=== PATIENT | male | born 1990 | race Caucasian/White ===

== ENCOUNTER 2016-09-29 14:01 | Emergency (ER) | payer BC ==
[~2016-09-29] VITALS: Ht 172.7 cm; Wt 101.3 kg
[~2016-09-29 14:01] MED LIST: LAMO200T38 PO; LEVE500T13 PO; XRL20 PO
[2016-09-29 14:04] VITALS: TEMP 37; Ht 172.7 cm; Wt 101.3 kg
--- NOTE | 2016-09-29 14:23 | EMERGENCY ROOM VISIT NOTE ---
History Report prepared by Ileana: Melissa Mirza Under the Supervision of: Dr. Josué Zuluaga M.D. First contact with patient: 14:09 Chief Complaint: LEG PAIN,LEG INJURY Stated Complaint: PAIN & SWELLING L LEG, COUGHING UP BLOOD History of Present Illness The patient is a 26 year old male who presents to the Emergency Room with complaints of persistent left thigh pain that began this morning around 1000. He currently rates his discomfort as a 3/10 in severity. The patient states that he was at work when he developed the pain. He notes that bending his leg back completely worsen his discomfort. The patient states that his pain come out of nowhere today. He notes that he has a history of previous PEs. The patient states that he is currently on Xarelto, and denies any blood clots since being placed on Xarelto. He states that recently he has been experiencing hemoptysis, but attributes that to his recent sinus infection. The patient denies any shortness of breath. He notes an increased cough with lying flat. The patient notes that he took Tylenol prior to arrival. Source of History: patient Onset: 1000 this morning Position: other (left thigh) Symptom Intensity: 3/10 Timing: other (persistent) Modifying Factors (Worsening): other (bending his left leg back completely) Associated Symptoms: + cough, No SOB Note: Associated Symptoms: hemoptysis Review of Systems All systems have been listed, reviewed, and are negative other than those previously mentioned. Please see Additional Medical History Sheet. Past Medical & Surgical Medical Problems: (1) Bronchitis (2) Depression (3) Epilepsy (4) Pneumonia (5) Pulmonary embolism (6) Seizure Surgical Problems: (1) H/O wisdom tooth extraction Family History Heart disease Hypertension Kidney stones Seizures Social History Smoking Status: Former Smoker Smokeless Tobacco Use: No Alcohol Use: occasionally Drug Use: marijuana Marital Status: single Housing Status: lives with family Occupation Status: employed Current/Historical Medications Scheduled Lamotrigine (Lamictal), 200 MG PO BID Lamotrigine (Lamotrigine), 75 MG PO BID Levetiracetam (Keppra), 500 MG PO BID Rivaroxaban (Xarelto), 20 MG PO QPM Scheduled PRN Acetaminophen (Tylenol), 1,000 MG PO Q6 PRN for Pain Allergies Coded Allergies: Tramadol (Verified Allergy, Severe, SHORTNESS OF BREATH, 09/29/16) lowers seizure threshold Penicillins (Verified Allergy, Unknown, unknown, 09/29/16) pt Physical Exam Vital Signs Date Time Temp Pulse Resp B/P Pulse Ox O2 Delivery O2 Flow Rate FiO2 09/29/16 16:57 77 18 118/76 99 09/29/16 15:29 57 09/29/16 15:12 Room Air 09/29/16 15:12 64 18 111/51 94 Room Air 09/29/16 14:04 37.0 69 18 123/65 95 Room Air Physical Exam GENERAL: Patient awake, alert, oriented x 3. Patient follows commands. Patient does not appear toxic. Patient is adequately hydrated and well- nourished. SKIN: No erythema, pallor, cyanosis or rash HEENT: Normal head, no tenderness over maxillary or frontal sinuses. pupils equal, reactive to light and accommodation. Neck: Without adenopathy, no neck vein distention. LUNGS: Clear to auscultation. No wheezes, no rales, no rhonchi. HEART: No murmurs. No gallops. No rubs ABDOMEN: No masses, no rebound, no hepatomegaly or splenomegaly. EXTREMITIES: Tender along lateral aspect of distal left upper leg. Full range of motion of knee and hip without increasing pain. Good circulatory, sensation , and motor functions. No signs of trauma. No pedal or pretibial edema. No calf tenderness. NEUROLOGIC: Cranial nerves II-XII within normal limits. No gross motor sensory function deficits. Medical Decision & Procedures ER Provider Diagnostic Interpretation: Radiology results as stated below per my review and radiologist interpretation: ULTRASOUND LEFT VENOUS DOPP LOWER EXT UNILAT CLINICAL HISTORY: Left leg pain COMPARISON STUDY: No previous studies for comparison. FINDINGS: Real-time and color flow Doppler imaging were performed. Flow was seen within the femoral, popliteal and calf veins with no intraluminal thrombus demonstrated. The saphenous vein is patent. IMPRESSION: No evidence of left lower extremity DVT. Electronically signed by: Haider Rob M.D. 09/29/2016 2:55 PM Dictated Date/Time: 09/29/2016 2:53 PM CHEST 2 VIEWS ROUTINE CLINICAL HISTORY: hemoptysis COMPARISON STUDY: 06/29/2016 FINDINGS: The heart is normal in size. There is no lobar consolidation. There are equivocal minimal nodular left basilar airspace opacities. There is no failure. There are no significant pleural effusions.[ IMPRESSION: Slight prominence of the interstitium with equivocal minimal nodular left basilar airspace opacities. No evidence of lobar consolidation Electronically signed by: Haider Rob M.D. 09/29/2016 3:51 PM Dictated Date/Time: 09/29/2016 3:49 PM Laboratory Results 09/29/16 14:30 09/29/16 14:30 Test 09/29/16 14:30 Red Blood Count 4.72 M/uL (4.7-6.1) Mean Corpuscular Volume 81.8 fL (80-100) Mean Corpuscular Hemoglobin 30.5 pg (25-34) Mean Corpuscular Hemoglobin Concent 37.3 g/dl (32-36) RDW Standard Deviation 35.8 fL (36.4-46.3) RDW Coefficient of Variation 11.9 % (11.5-14.5) Mean Platelet Volume 10.5 fL (7.4-10.4) Platelet Estimate DECREASED Prothrombin Time 12.1 SECONDS (9.0-12.0) Prothromb Time International Ratio 1.1 (0.9-1.1) Activated Partial Thromboplast Time 54.1 SECONDS (21.0-31.0) Partial Thromboplastin Ratio 2.1 D-Dimer 350 ug/L FEU (0-500) Anion Gap 10.0 mmol/L (3-11) Est Creatinine Clear Calc Drug Dose 93.0 ml/min Estimated GFR () 80.4 Estimated GFR (Non- 69.3 BUN/Creatinine Ratio 11.2 (10-20) Calcium Level 9.1 mg/dl (8.5-10.1) Troponin I < 0.015 ng/ml (0-0.045) Laboratory results as stated above per my review. ECG Indication: other (cough, hemoptysis) Rate (beats per minute): 59 Rhythm: sinus bradycardia Findings: no acute ischemic change, no ectopy, other (sinus arrhythmia) ED Course 1410: Past medical records reviewed. The patient was evaluated in room C9. A complete history and physical examination was performed. 1628: I discussed the patients case with Dr. Rob, Radiology. He feels that the nodules on x-ray are not likely to be neoplastic, but more likely related to prior PE/pulmonary infarction. 1632: I reevaluated the patient and he is resting comfortably. I discussed the exam findings with him and I discussed the treatment plan. He verbalized complete understanding and agreement. He is ready to go home. Medical Decision Nurses notes reviewed. Medical history sheet reviewed. Differential diagnosis includes but is not limited to: DVT, PE, musculoskeletal pain, sinusitis. The patient is here with some pain in his left leg and also some hemoptysis. He believes the hemoptysis is secondary to a sinus infection. The patient has had a past PE is currently on Xarelto. Blood work, EKG and imaging were evaluated. Please see above. Chest x-ray today reveals a questionable nodule in the left lower lobe where his PE was. I discussed this with Dr. Lai who does not feel this is a neoplastic lesion. The pain in his left leg appears to be musculoskeletal. Ultrasound was negative for DVT. I believe the patient can safely be monitored at home and follow-up by his family physician. I am placing him on on new medications. He will continue his Xarelto. Consults Time Called: 1625 Consulting Physician: Dr. Rob, Radiology Returned Call: [phone] I discussed the patients case with Dr. Rob, Radiology. He feels that the nodules on x-ray are not likely to be neoplastic, but more likely related to prior PE/pulmonary infarction. Impression Primary Impression: Hemoptysis Additional Impressions: History of pulmonary embolism Left leg pain Scribe Attestation The scribe's documentation has been prepared under my direction and personally reviewed by me in its entirety. I confirm that the note above accurately reflects all work, treatment, procedures, and medical decision making performed by me. Departure Information Dispostion Home / Self-Care Referrals Mukesh Boyd M.D. (PCP) Forms HOME CARE DOCUMENTATION FORM, IMPORTANT VISIT INFORMATION Patient Instructions My [facility] [place] Additional Instructions Continue all of your current medications including Xarelto. Follow-up with your family physician within the next 10-14 days. Return here sooner if you become short of breath or develop any chest pain. Problem Qualifiers
[2016-09-29] MEDS ORDERED: LMC25 PO (14:30)
--- NOTE | 2016-09-29 14:57 | DIAGNOSTIC IMAGING REPORT ---
ULTRASOUND LEFT VENOUS DOPP LOWER EXT UNILAT CLINICAL HISTORY: Left leg pain COMPARISON STUDY: No previous studies for comparison. FINDINGS: Real-time and color flow Doppler imaging were performed. Flow was seen within the femoral, popliteal and calf veins with no intraluminal thrombus demonstrated. The saphenous vein is patent. IMPRESSION: No evidence of left lower extremity DVT. Electronically signed by: Haider Rob M.D. 09/29/2016 2:55 PM Dictated Date/Time: 09/29/2016 2:53 PM
[2016-09-29 15:21] LABS: BLOOD UREA NITROGEN 16 mg/dl (7-18); BUN/CREATININE RATIO 11.2 (10-20); CALCIUM 9.1 mg/dl (8.5-10.1); CARBON DIOXIDE 25 mmol/L (21-32); CHLORIDE 104 mmol/L (98-107); GLUCOSE 84 mg/dl (70-99); INR 1.1 (0.9-1.1); PARTIAL THROMBOPLASTIN RATIO 2.1; POTASSIUM 3.7 mmol/L (3.5-5.1); PROTHROMBIN TIME (PATIENT) 12.1 SECONDS (9.0-12.0); SODIUM 139 mmol/L (136-145)
[2016-09-29 15:31] LABS: HEMATOCRIT 38.6 % (42-52); MEAN CELL VOLUME 81.8 fL (80-100); MEAN CORPUSCULAR HEMOGLOBIN 30.5 pg (25-34); MEAN CORPUSCULAR HGB CONC 37.3 g/dl (32-36); MEAN PLATELET VOLUME 10.5 fL (7.4-10.4); PLATELET COUNT 90 K/uL (130-400); PLT ESTIMATE DECREASED; RED BLOOD COUNT 4.72 M/uL (4.7-6.1); WHITE BLOOD COUNT 6.27 K/uL (4.8-10.8)
--- NOTE | 2016-09-29 15:52 | DIAGNOSTIC IMAGING REPORT ---
CHEST 2 VIEWS ROUTINE CLINICAL HISTORY: hemoptysis COMPARISON STUDY: 06/29/2016 FINDINGS: The heart is normal in size. There is no lobar consolidation. There are equivocal minimal nodular left basilar airspace opacities. There is no failure. There are no significant pleural effusions.[ IMPRESSION: Slight prominence of the interstitium with equivocal minimal nodular left basilar airspace opacities. No evidence of lobar consolidation Electronically signed by: Haider Rob M.D. 09/29/2016 3:51 PM Dictated Date/Time: 09/29/2016 3:49 PM
[2016-09-29 16:57] VITALS: BP 118/76; PULSE 77; O2SAT 99
[2016-10-14] MEDS ORDERED: PRT40 PO (13:01)
[2016-10-14] MEDS ORDERED: LPT40 PO (13:01)
[2016-10-14] MEDS ORDERED: WARF7.5T PO (13:01)
[2016-10-14] MEDS ORDERED: ASPEC81 PO (13:01)
[2017-02-08] MEDS ORDERED: ACET-1256 PO (10:56)
[2017-02-08] MEDS ORDERED: ASPI81TA28 PO (14:11)
== END 2016-09-29 16:58 | disposition home or self-care (01) ==
LOC: C.EDB 14:03 → C.EDC 16:52
DX: R04.2 Hemoptysis (principal); Z86.711 Personal history of pulmonary embolism; M79.605 Pain in left leg; F32.9 Major depressive disorder, single episode, unspecified; G40.909 Epilepsy, unspecified, not intractable, without status epilepticus; Z87.891 Personal history of nicotine dependence

== ENCOUNTER 2016-10-03 03:31 | Inpatient (IN) | payer BC ==
[~2016-10-03] VITALS: Ht 170.2 cm; Wt 96.3 kg
[~2016-10-03 03:31] MED LIST changes: +LMC25 PO
[2016-10-03] MEDS ORDERED: SODIUM CHLORIDE 0.9% 1000ML 1,000 ML IV STA (03:48)
[2016-10-03] MEDS ORDERED: DiphenhydrAMINE HCL 50 MG/ML VIAL IV STA (03:48)
[2016-10-03] MEDS ORDERED: METOCLOPRAMIDE HCL INJ 5 MG/ML 2 ML VIAL IV STA (03:48)
[2016-10-03] MEDS ORDERED: OPTIRAY 320 IV PRN (04:00)
[2016-10-03 04:10] LABS: HEMATOCRIT 37.7 % (42-52); MEAN CELL VOLUME 80.2 fL (80-100); MEAN CORPUSCULAR HGB CONC 37.4 g/dl (32-36); WHITE BLOOD COUNT 7.41 K/uL (4.8-10.8)
[2016-10-03 04:11] LABS: BASO % 0.4 %; BASO ABS # 0.03 K/uL (0-0.2); COMPLETE YES; EOS % 4.2 %; IG% 0.3 %; LYMPH % 17.5 %; MEAN PLATELET VOLUME 10.4 fL (7.4-10.4); NEUT % 68.6 %; PLATELET COUNT 89 K/uL (130-400)
[2016-10-03 04:29] LABS: ALT/SGPT 44 U/L (12-78); AST/SGOT 31 U/L (15-37); BLOOD UREA NITROGEN 23 mg/dl (7-18); BUN/CREATININE RATIO 17.4 (10-20); CALCIUM 8.9 mg/dl (8.5-10.1); CARBON DIOXIDE 26 mmol/L (21-32); CHLORIDE 105 mmol/L (98-107); GLUCOSE 104 mg/dl (70-99); POTASSIUM 3.7 mmol/L (3.5-5.1); SODIUM 141 mmol/L (136-145)
[2016-10-03 04:34] LABS: ALKALINE PHOSPHATASE 95 U/L (45-117); GASTRIC OCCULT BLOOD POS (NEG); GASTRIC OCCULT BLOOD PH 3
[2016-10-03 04:42] LABS: INR 1.2 (0.9-1.1); PARTIAL THROMBOPLASTIN RATIO 2.4; PROTHROMBIN TIME (PATIENT) 13.4 SECONDS (9.0-12.0)
[2016-10-03] MEDS ORDERED: PANTOprazole INJ 80 MG in DEXTROSE 5% 100ML 100 ML IV SCH (04:45)
--- NOTE | 2016-10-03 05:54 | EMERGENCY ROOM VISIT NOTE ---
History First contact with patient: 03:38 Chief Complaint: VERTIGO Stated Complaint: VERTIGO,NAUSEA,VOMITING,COUGH W/ BLOOD History of Present Illness The patient is a 26 year old male who presents to the Emergency Room with complaints of increasing hemoptysis for the past 2 weeks with occasional chest pain and palpitations. Patient has been vomiting and thinks he might at some blood in it but he did eat spaghetti for dinner. Patient has known PEs. He is on Xarelto. He does not believe he has missed any does. Patient states tonight he developed vertigo and vomiting. Patient states he woke up just fine but got sick today at work. He works at [employer]. He's had vertigo before. Symptoms feel similar. He had a cold last week. Patient denies IV drug abuse, night sweats, TB risk factors, HIV risk factors, fever, chills, black stool, abdominal pain, leg pain or swelling, numbness, tingling, localized weakness, diaphoresis. No Recent travel. Patient is unsure why he has PEs. He does not smoke. Review of Systems See HPI for pertinent positives & negatives. A total of 10 systems reviewed and were otherwise negative. Past Medical/Surgical History Medical Problems: (1) Bronchitis (2) Depression (3) Epilepsy (4) Pneumonia (5) Pulmonary embolism (6) Seizure Surgical Problems: (1) H/O wisdom tooth extraction Family History Heart disease Hypertension Kidney stones Seizures Social History Smoking Status: Never Smoker Alcohol Use: occasionally Drug Use: marijuana Marital Status: single Housing Status: lives with family Occupation Status: employed Current/Historical Medications Scheduled Lamotrigine (Lamictal), 200 MG PO BID Lamotrigine (Lamotrigine), 75 MG PO BID Levetiracetam (Keppra), 500 MG PO BID Rivaroxaban (Xarelto), 20 MG PO QPM Scheduled PRN Acetaminophen (Tylenol), 1,000 MG PO Q6 PRN for Pain Allergies Coded Allergies: Tramadol (Verified Allergy, Severe, SHORTNESS OF BREATH, 10/03/16) lowers seizure threshold Penicillins (Verified Allergy, Unknown, unknown, 10/03/16) pt Physical Exam Vital Signs Date Time Temp Pulse Resp B/P Pulse Ox O2 Delivery O2 Flow Rate FiO2 10/03/16 05:03 50 23 117/61 95 Room Air 10/03/16 04:20 36.3 10/03/16 04:07 56 10/03/16 04:03 Room Air 10/03/16 03:37 58 20 122/72 95 Room Air Physical Exam VITALS: Vitals are noted on the nurse's note and reviewed by myself. Vital signs stable. GENERAL:pleasant male, in no acute distress, nondiaphoretic, well-developed well -nourished. SKIN: The skin was without rashes, erythema, edema, or bruising. There is no tenting of the skin. Capillary reflex less than 2 seconds. HEAD: Normocephalic atraumatic. EARS: External auditory canals clear, tympanic membranes pearly dickens without erythema or effusion bilaterally. EYES: Pupils equal round and reactive to light and accommodation. Conjunctivae without injection, sclerae without icterus. Extraocular movements intact. NOSE: Patent, turbinates without inflammation or discharge. No sinus tenderness. MOUTH: Mucous membranes moist. Pharynx without erythema or exudate. Uvula midline. Airway patent. Tongue does not deviate. NECK: Supple without nuchal rigidity. No lymphadenopathy. No thyromegaly. Cervical spine is nontender. No JVD. HEART: Regular rate and rhythm without murmurs gallops or rubs. LUNGS: Clear to auscultation bilaterally without wheezes, rales or rhonchi. No dullness to percussion. No retractions or accessory muscle use. ABDOMEN: Positive bowel sounds x 4. Normal tympanic percussion. Soft, nontender, without masses or organomegaly. Hewitt sign negative. No guarding or rebound tenderness. MUSCULOSKELETAL: No muscle atrophy, erythema, or edema noted. NEURO: Patient was alert and oriented to person place and time. Normal sensation to light and sharp touch. No focal neurological deficits. Medical Decision & Procedures Laboratory Results 10/03/16 04:00 Red Blood Count 4.70, Mean Corpuscular Volume 80.2, Mean Corpuscular Hemoglobin 30.0, Mean Corpuscular Hemoglobin Concent 37.4, Mean Platelet Volume 10.4, Neutrophils (%) (Auto) 68.6, Lymphocytes (%) (Auto) 17.5, Monocytes (%) (Auto) 9.0, Eosinophils (%) (Auto) 4.2, Basophils (%) (Auto) 0.4, Neutrophils # (Auto) 5.08, Lymphocytes # (Auto) 1.30, Monocytes # (Auto) 0.67, Eosinophils # (Auto) 0.31, Basophils # (Auto) 0.03 10/03/16 04:00 Test 10/03/16 04:00 White Blood Count 7.41 K/uL (4.8-10.8) Red Blood Count 4.70 M/uL (4.7-6.1) Hemoglobin 14.1 g/dL (14.0-18.0) Hematocrit 37.7 % (42-52) Mean Corpuscular Volume 80.2 fL (80-100) Mean Corpuscular Hemoglobin 30.0 pg (25-34) Mean Corpuscular Hemoglobin Concent 37.4 g/dl (32-36) Platelet Count 89 K/uL (130-400) Mean Platelet Volume 10.4 fL (7.4-10.4) Neutrophils (%) (Auto) 68.6 % Lymphocytes (%) (Auto) 17.5 % Monocytes (%) (Auto) 9.0 % Eosinophils (%) (Auto) 4.2 % Basophils (%) (Auto) 0.4 % Neutrophils # (Auto) 5.08 K/uL (1.4-6.5) Lymphocytes # (Auto) 1.30 K/uL (1.2-3.4) Monocytes # (Auto) 0.67 K/uL (0.11-0.59) Eosinophils # (Auto) 0.31 K/uL (0-0.5) Basophils # (Auto) 0.03 K/uL (0-0.2) RDW Standard Deviation 34.4 fL (36.4-46.3) RDW Coefficient of Variation 11.7 % (11.5-14.5) Immature Granulocyte % (Auto) 0.3 % Immature Granulocyte # (Auto) 0.02 K/uL (0.00-0.02) Prothrombin Time 13.4 SECONDS (9.0-12.0) Prothromb Time International Ratio 1.2 (0.9-1.1) Activated Partial Thromboplast Time 63.4 SECONDS (21.0-31.0) Partial Thromboplastin Ratio 2.4 Gastric Fluid pH 3 Gastric Fluid Occult Blood POS (NEG) Anion Gap 10.0 mmol/L (3-11) Estimated GFR () 87.9 Estimated GFR (Non- 75.8 BUN/Creatinine Ratio 17.4 (10-20) Calcium Level 8.9 mg/dl (8.5-10.1) Total Bilirubin 0.7 mg/dl (0.2-1) Direct Bilirubin 0.2 mg/dl (0-0.2) Aspartate Amino Transf (AST/SGOT) 31 U/L (15-37) Alanine Aminotransferase (ALT/SGPT) 44 U/L (12-78) Alkaline Phosphatase 95 U/L (45-117) Troponin I 0.021 ng/ml (0-0.045) Total Protein 7.6 gm/dl (6.4-8.2) Albumin 3.9 gm/dl (3.4-5.0) Medications Administered Medications (Trade) Dose Ordered Sig/Brianda Route Start Time Stop Time Status Last Admin Dose Admin Sodium Chloride (Nss 1000ml) 1,000 ml @ 999 mls/hr Q1H1M STAT IV 10/03/16 03:48 10/03/16 04:48 DC 10/03/16 04:01 999 MLS/HR Metoclopramide HCl (Reglan Inj) 10 mg NOW STAT IV 10/03/16 03:48 10/03/16 03:51 DC 10/03/16 04:01 10 MG Diphenhydramine HCl 25 mg 25 mg NOW STAT IV 10/03/16 03:48 10/03/16 03:51 DC 10/03/16 04:01 25 MG Pantoprazole Sodium/Dextrose (Protonix Inj/D5 100ml) 120 ml @ 400 mls/hr NOW IV 10/03/16 04:45 11/02/16 04:44 10/03/16 05:00 400 MLS/HR ED Course Prior records/ancillary studies reviewed and summarized above. Nursing notes reviewed. Additional history obtained from family. The patient's history was concerning for hemoptysis, palpitations, vertigo. Differential diagnosis: Etiologies such as metabolic, autoimmune, PE, infection, hypo/hyperglycemia, electrolyte abnormalities, cardiac sources, intracerebral event, toxicologic, neurologic, as well as others were entertained. Physical examination: As above. ER treatment provided: IV Lock Reglan, Benadryl, protonix On reassessment the patient felt better. Diagnostics interpretation by me: ECG: Normal sinus, normal intervals, no acute ST-T wave changes, rate of 52. Impression sinus bradycardia interpreted by myself The labs revealed + Gastroccult, no anemia Imaging studies: CTA CHEST: Compared to 05/24/16. No evidence of large central PE. Peripheral vessels not well visualized, suspect small PE in the left lower lobe. Extensive patchy bilateral groundglass infiltrates, possible pulmonary hemorrhage, edema, or inflammatory/infectious process. Prominent mediastinal and hilar lymph nodes. No aortic aneurysm or visualized dissection. Radiologist: Julia Trevino M.D. Study ready at 04:54 and initial results Consultation: A consultation was placed with the hospitalist, Dr Prakash. The case was discussed and diagnostics were reviewed. The patient was evaluated in the ER for further treatment. Exam and history seem consistent with new PE, hemoptysis and positive gastric occult with vomiting concerning for hematemesis. Patient was neurovascularly and neurologically intact. He was well-appearing. He is afebrile and nontoxic. Patient's been having increasing hemoptysis so further imaging was ordered. new findings were noted. Patient was given Protonix for positive Gastroccult with hematemesis. By the evaluation outlined above emergent etiologies such as electrolyte abnormalities, cardiac sources, intracerebral event, toxologic, neurologic, abnormalities blood glucose, metabolic, as well as others were deemed relatively unlikely. The pt informed about the findings as listed above. All questions were answered and pleased with the treatment. Case reviewed with my attending Medical Decision as above Impression Primary Impression: Pulmonary embolism Additional Impressions: Hemoptysis Hematemesis Vertigo Departure Information Dispostion Being Evaluated By Hospitalist Condition FAIR Referrals Mukesh Boyd M.D. (PCP) Patient Instructions My [facility] Problem Qualifiers Primary Impression: Pulmonary embolism Pulmonary embolism type: other Chronicity: acute Acute cor pulmonale presence: without acute cor pulmonale Qualified Codes: I26.99 - Other pulmonary embolism without acute cor pulmonale
[2016-10-03 06:08] LABS: MAGNESIUM 1.9 mg/dl (1.8-2.4); THYROID STIMULATING HORMONE 2.61 uIu/ml (0.300-4.500)
[2016-10-03] MEDS ORDERED: LEVAQUIN 750MG / 150ML D5W IV SCH (06:30)
[2016-10-03] MEDS ORDERED: METHYLPREDNISOLONE IV 40 MG in SYRINGE 0 ML IV ONE (06:30)
[2016-10-03 06:34] LABS: URINE APPEARANCE CLEAR (CLEAR); URINE BILIRUBIN NEG (NEG); URINE COLOR YELLOW; URINE NITRITE NEG (NEG); URINE SPECIFIC GRAVITY > 1.045 (1.000-1.030); UROBILINOGEN NEG (NEG); ZZUR CULT IF INDIC CLEAN CATCH NO
[2016-10-03 06:46] LABS: MANUAL MICROSCOPIC REQUIRED? NO; REVIEW REQ? NO
[2016-10-03 06:48] LABS: BENZODIAZEPINE, URINE NEG (NEG); COCAINE,URINE NEG (NEG); PHENCYCLIDINE, URINE NEG (NEG)
--- NOTE | 2016-10-03 06:49 | DIAGNOSTIC IMAGING REPORT ---
ABDOMEN AND PELVIS CT WITHOUT CONTRAST CT DOSE: HISTORY: Pain abd pain TECHNIQUE: Multiaxial CT images of the abdomen and pelvis were performed without contrast. COMPARISON STUDY: None. FINDINGS: Bibasilar parenchymal infiltrative change. Liver spleen and pancreas are unremarkable. Gallbladder is negative for distention. Kidneys negative for hydronephrosis. Bowel pattern is considered nonobstructive. There is no significant abdominal pelvic or inguinal adenopathy. Bladder is midline. Inguinal regions are unremarkable. IMPRESSION: Bibasilar parenchymal infiltrates. Otherwise negative abdomen and pelvis Electronically signed by: Sean Melo M.D. 10/03/2016 6:48 AM Dictated Date/Time: 10/03/2016 6:46 AM
--- NOTE | 2016-10-03 06:51 | DIAGNOSTIC IMAGING REPORT ---
HEAD CT NONCONTRAST CT DOSE: 1476.01 mGy.cm HISTORY: Mental status change lara, vertigo TECHNIQUE: Multiaxial CT images of the head were performed without the use of intravenous contrast. Comparison: 01/17/2016 Findings: The paranasal sinuses and mastoid air cells are clear. The calvarium and skull base are intact. The ventricles and sulci are within normal limits. There is no mass, hematoma, midline shift, or acute infarct. Impression: No acute intracranial abnormality. Electronically signed by: Sean Melo M.D. 10/03/2016 6:50 AM Dictated Date/Time: 10/03/2016 6:48 AM
--- NOTE | 2016-10-03 06:55 | DIAGNOSTIC IMAGING REPORT ---
CHEST CTA for PULMONARY ARTERIES CT DOSE: 560.48 mGy.cm HISTORY: Chest pain dyspnea TECHNIQUE: Multiaxial CT images of the chest were performed following the intravenous administration of contrast to evaluate the pulmonary arteries. Maximal intensity projection images were also obtained. COMPARISON STUDY: None. FINDINGS: There is a normal caliber thoracic aorta with no evidence for dissection. There is no evidence for pulmonary embolus. No significant pleural effusion. Pulmonary vasculature enhances appropriately. Moderate mediastinal and hilar adenopathy. A parenchymal infiltrate scattered throughout both hemithoraces. Some atypical pulmonary edematous changes a potential diagnostic possibility. IMPRESSION: 1. Study is negative for significant pulmonary embolus. 2. Diffuse bilateral patchy parenchymal infiltrates versus atypical pulmonary edema. 3. Moderate mediastinal and hilar adenopathy Electronically signed by: Sean Melo M.D. 10/03/2016 6:53 AM Dictated Date/Time: 10/03/2016 6:50 AM
[2016-10-03 07:00] VITALS: O2SAT 95; BMI 35.1
[2016-10-03] MEDS ORDERED: LORAZEPAM 2 MG/ML 1 ML VIAL IV PRN (07:00)
[2016-10-03] MEDS ORDERED: PROMETHAZINE HCL INJ 12.5 MG in SODIUM CHLORIDE 0.9% 50ML 50 ML IV PRN (07:00)
[2016-10-03] MEDS ORDERED: ALBUT/IPRATROP 3MG/0.5MG NEB 3 ML VIAL INH PRN (07:00)
[2016-10-03] MEDS ORDERED: ALBUT/IPRATROP 3MG/0.5MG NEB 3 ML VIAL INH STA (07:09)
[2016-10-03 07:10] VITALS: Ht 170.2 cm; Wt 96.3 kg
--- NOTE | 2016-10-03 07:33 | HISTORY & PHYSICAL EXAMINATION ---
DATE OF ADMISSION: 10/03/2016 PRIMARY CARE PHYSICIAN: Dr. Boyd. CHIEF COMPLAINT: Vertigo, hemoptysis/hematemesis. HISTORY OF PRESENT ILLNESS: Medical hx significant for seizure disorder, past tobacco abuse, pulmonary embolism on Xarelto. Recent confinement last April 2016 for pulmonary embolism. Patient discharged on Xarelto. Last week, patient was seen at [facility] for URTI symptoms, sinus congestion, drainage, productive cough with yellow sputum attributed to viral symptoms. Supportive management recommended. Cough later noted to be white-yellowish later noted to be bloody. No fever, no chills, no aspiration. Patient also complained of left leg pain and pleuritic substernal pain sx. Px was seen at the Emergency Room a few days ago. LLE Ultrasound negative for DVT. Chest x-ray, slight prominence of interstitium. Platelets noted to be 90. Patient subsequently discharged home. Persistence of hemoptysis symptoms at home. Last night while patient playing video games he noted vertigo symptoms like the room tilted, transient achy headache symptoms. Patient also noted achy epigastric discomfort ffd by blood tinged emesis. No melena, no hematochezia. At the Emergency Room, Protonix given for possible GI bleed. MEDICAL HISTORY: As above. SURGERIES: Tooth extraction. HOME MEDICATIONS: Xarelto, Keppra, lamotrigine, Tylenol. ALLERGIES: TRAMADOL, PENICILLIN. FAMILY HISTORY: Hypertension, kidney stones, seizures. 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 REVIEW OF SYSTEMS: As per HPI, all other ROS negative. PHYSICAL EXAMINATION: VITAL SIGNS: Blood pressure was noted to be 122/72, pulse rate 58, RR 20, temperature 36.3, sats 95 on room air. GENERAL: Noted to be obese, slightly anxious, no respiratory distress. SKIN: Normal color. HEENT: [place] palpebral conjunctivae. Dry mucosa. NECK: Short neck. LUNGS: Decreased breath sounds. Occasional wheeze. HEART: Bradycardic. ABDOMEN: Some distention, nontender. EXTREMITIES: No edema. no tenderness NEUROLOGIC: No gross focality. LABS: Hemoglobin was noted to be 14.1, hematocrit 7.7, white cells 7.4, platelets 89. Sodium 140, potassium 3.7, chloride 105, CO2 26, BUN 23, creatinine 1.1, glucose 104. trop 0 CT initial read showed no evidence of large central PE, suspect small PE left lower lobe, patchy bilateral ground-glass infiltrates, possible pulmonary hemorrhage, edema, inflammatory vs infectious processes, prominent mediastinal lymph nodes. EKG rate 50, sinus bradycardia, no ischemia ASSESSMENT AND PLAN: 1. Hemoptysis multifactorial : pulmonary hemorrhage, ongoing Xarelto intake for PE ? pneumonia, no sepsis ? recurrent PE on initial CT scan read 2. transient vertigo, headache symptoms secondary to illness rule out structural intracranial pathology/ICH 3. blood-tinged emesis swallowed blood versus actual UGIB hemodynamically stable 4. thrombocytopenia 5. seizure disorder stable on meds. PLAN: PCU. Follow CT head, abdomen and pelvis. Appropriate to hold Xarelto for now Consider Tranexamic acid for bleeding. Will check with Hematology. Solu-Medrol 1 dose now for pulm hemorrhage, Levaquin for pneumonia, anti- tussives prn Pulmonary consult for pulmonary hemorrhage ff official CT chest read - new PE on the scan may warrant IVC filter placement ff HH, transfuse prbc if Hg less than 7 and/or symptomatic anemia GI consult if w/ active GI bleed sx DVT prophylaxis SCDs re bleed. Full code. MTDD
--- NOTE | 2016-10-03 07:53 | Progress Note ---
Internal Med Progress Note Date of Service: Oct 03, 2016. Provider Documentation: SUBJECTIVE: Patient is seen and examined at bedside. States having dizziness and right sided chest pain which is sharp. Denies any SOB. Has minimal hemoptysis this morning. OBJECTIVE: Vital Signs-as noted below Physical Exam: General Appearance:Moderately built and nourished Head: normocephalic, Atraumatic Eyes: normal inspection, EOMI, PERRLA Neck: supple, Trachea midline Respiratory/Chest: Normal breath sounds, CTA, No accessory muscle use Cardiovascular: S1, S2, No murmur Abdomen/GI:Soft, Non tender, Bowel sounds present Extremities/Musculoskelatal:normal inspection, no edema Neurologic/Psych:AAOX3, grossly no focal neurological deficits Skin: normal color, warm Lab data as noted below. ASSESSMENT & PLAN: Hemoptysis: On Xarelto at home for PE Patient states having hemoptysis since about 8 days Unknown cause of PE per patient S/P Tranexamic acid Hold Xarelto for now Monitor H&H, Transfuse PRN if Hb less than 7.0 CTA:Negative for PE Consulted Pulmonary: awaiting input ANCA screen:pending 1 dose of solumedrol given in ED for possible pulm.hemorrhage ? Atypical pneumonia: Currently afebrile, WBC:wnl Continue Levaquin for now Saturating well on RA Oxygen PRN Complains of right sided chest pain: Trend troponin + FOBT: Denies any melena or noticing blood in stools On Xarelto at home which is held May need colonoscopy as outpatient Will consider GI consult if tapan bleeding Dizziness: Likely secondary to dehydration: Admits to poor oral intake prior to admission States having intermittent dizziness which he relates to seizure disorder Continue IV fluids CT head: No acute pathology Monitor for now H/O PE: Unknown cause Xarelto held secondary to hemoptysis CTA: Negative for PE Thrombocytopenia: Likely secondary to acute illness Continue to monitor H/O seizure disorder: stable Continue home meds H/O drug abuse: Patient denies IV drugs Drug screen positive for Marijuana DVT Px: SCDs Code Status: Full code Disposition: Continue to monitor PROCEDURES: CTA: 1. Study is negative for significant pulmonary embolus. 2. Diffuse bilateral patchy parenchymal infiltrates versus atypical pulmonary edema. 3. Moderate mediastinal and hilar adenopathy CT head: No acute intracranial abnormality. CT ABD: Bibasilar parenchymal infiltrates. Otherwise negative abdomen and pelvis Vital Signs: Date Time Temp Pulse Resp B/P Pulse Ox O2 Delivery O2 Flow Rate FiO2 10/03/16 12:00 Room Air 10/03/16 11:30 Room Air 10/03/16 08:18 36.4 52 16 129/74 95 Room Air 10/03/16 08:00 Room Air 10/03/16 07:30 36.4 64 16 113/62 95 Room Air 10/03/16 07:00 95 Room Air 10/03/16 06:34 55 22 114/72 95 Room Air 10/03/16 05:03 50 23 117/61 95 Room Air 10/03/16 04:20 36.3 10/03/16 04:07 56 10/03/16 04:03 Room Air 10/03/16 03:37 58 20 122/72 95 Room Air Lab Results: Results Past 24 Hours Test 10/03/16 04:00 10/03/16 06:20 10/03/16 08:10 10/03/16 13:25 Range/Units White Blood Count 7.41 4.8-10.8 K/uL Red Blood Count 4.70 4.7-6.1 M/uL Hemoglobin 14.1 13.9 14.0-18.0 g/dL Hematocrit 37.7 37.8 42-52 % Mean Corpuscular Volume 80.2 80-100 fL Mean Corpuscular Hemoglobin 30.0 25-34 pg Mean Corpuscular Hemoglobin Concent 37.4 32-36 g/dl Platelet Count 89 130-400 K/uL Mean Platelet Volume 10.4 7.4-10.4 fL Neutrophils (%) (Auto) 68.6 % Lymphocytes (%) (Auto) 17.5 % Monocytes (%) (Auto) 9.0 % Eosinophils (%) (Auto) 4.2 % Basophils (%) (Auto) 0.4 % Neutrophils # (Auto) 5.08 1.4-6.5 K/uL Lymphocytes # (Auto) 1.30 1.2-3.4 K/uL Monocytes # (Auto) 0.67 0.11-0.59 K/uL Eosinophils # (Auto) 0.31 0-0.5 K/uL Basophils # (Auto) 0.03 0-0.2 K/uL RDW Standard Deviation 34.4 36.4-46.3 fL RDW Coefficient of Variation 11.7 11.5-14.5 % Immature Granulocyte % (Auto) 0.3 % Immature Granulocyte # (Auto) 0.02 0.00-0.02 K/uL Prothrombin Time 13.4 9.0-12.0 SECONDS Prothromb Time International Ratio 1.2 0.9-1.1 Activated Partial Thromboplast Time 63.4 21.0-31.0 SECONDS Partial Thromboplastin Ratio 2.4 Gastric Fluid pH 3 Gastric Fluid Occult Blood POS NEG Sodium Level 141 136-145 mmol/L Potassium Level 3.7 3.5-5.1 mmol/L Chloride Level 105 98-107 mmol/L Carbon Dioxide Level 26 21-32 mmol/L Anion Gap 10.0 3-11 mmol/L Blood Urea Nitrogen 23 7-18 mg/dl Creatinine 1.30 0.60-1.40 mg/dl Estimated GFR () 87.9 Estimated GFR (Non- 75.8 BUN/Creatinine Ratio 17.4 10-20 Random Glucose 104 70-99 mg/dl Calcium Level 8.9 8.5-10.1 mg/dl Magnesium Level 1.9 1.8-2.4 mg/dl Total Bilirubin 0.7 0.2-1 mg/dl Direct Bilirubin 0.2 0-0.2 mg/dl Aspartate Amino Transf (AST/SGOT) 31 15-37 U/L Alanine Aminotransferase (ALT/SGPT) 44 12-78 U/L Alkaline Phosphatase 95 45-117 U/L Troponin I 0.021 0-0.045 ng/ml Total Protein 7.6 6.4-8.2 gm/dl Albumin 3.9 3.4-5.0 gm/dl Lipase 222 73-393 U/L Thyroid Stimulating Hormone (TSH) 2.610 0.300-4.500 uIu/ml Urine Color YELLOW Urine Appearance CLEAR CLEAR Urine pH 7.0 4.5-7.5 Urine Specific [place] > 1.045 1.000-1.030 Urine Protein NEG NEG Urine Glucose (UA) NEG NEG Urine Ketones 1+ NEG Urine Occult Blood NEG NEG Urine Nitrite NEG NEG Urine Bilirubin NEG NEG Urine Urobilinogen NEG NEG Urine Leukocyte Esterase NEG NEG Urine Opiates Screen NEG NEG Urine Methadone, Qualitative NEG NEG Urine Barbiturates NEG NEG Urine Phencyclidine (PCP) Level NEG NEG Ur Amphetamine/Methamphetamine NEG NEG MDMA (Ecstasy) Screen NEG NEG Urine Benzodiazepines Screen NEG NEG Urine Cocaine Metabolite NEG NEG Urine Marijuana (THC) POS NEG Test 10/03/16 14:24 10/03/16 14:39 Range/Units
[2016-10-03] MEDS ORDERED: LACTATED RINGER'S 1000ML 1,000 ML IV ONE (08:00)
[2016-10-03] MEDS ORDERED: LORAZEPAM INJ 0.5 MG in SYRINGE 0.75 ML IV PRN (08:00)
[2016-10-03] MEDS ORDERED: LEVOFLOXACIN CONSULT ACTIVE PRN (08:15)
[2016-10-03 08:18] VITALS: BP 129/74; PULSE 52; TEMP 36.4; O2SAT 95
[2016-10-03 08:23] LABS: HEMATOCRIT 37.8 % (42-52)
[2016-10-03] MEDS: LEVETIRACETAM 500 MG TAB PO SCH ×2 (08:29→20:27)
[2016-10-03] MEDS ORDERED: TRANEXAMIC ACID INJ 1,000 MG in SODIUM CHLORIDE 0.9% 100ML 100 ML IV ONE (08:30)
[2016-10-03] MEDS: ONDANSETRON INJ 2 MG/ML 2 ML VIAL IV PRN ×2 (08:31→17:34)
[2016-10-03] MEDS: ACETAMINOPHEN 325 MG TAB PO PRN ×2 (08:31→18:59)
[2016-10-03] MEDS: SODIUM CHLORIDE 0.9% 1000ML 1,000 ML IV SCH (14:51)
[2016-10-03 15:17] VITALS: BP 116/75; PULSE 57; TEMP 36.3; O2SAT 96
[2016-10-03] MEDS: OXYCODONE/ACETAMINOPHEN 5-325 TAB PO PRN (15:25)
--- NOTE | 2016-10-03 19:44 | Pulmonary Consultation ---
History General Date of Service: Oct 03, 2016. Stated Complaint: Hemoptysis HPI The patient is a 26 year old male who presents to [facility] with complaints of Hemoptysis. The patient's primary care provider is Mukesh Boyd M.D.. 26-year-old male admitted through the [facility] emergency room with complaints of increasing hemoptysis and occasional chest pain/pleurisy over the last 2 weeks. Pt still notes mild cough and bilateral pleurisy (decreased from 06/10/16) but no active hemoptysis at this time. In-hospital workup: Plt: 89 BUN/Cr: 23/1.30 EKG: Normal sinus rhythm CT angio: Compared to CT angiogram from 05/10/2016 No signs of proximal pulmonary emboli Diffuse GGOs greatest in the mid lung zones and dependent lung regions Diffuse mediastinal lymphadenopathy CT angiogram 05/26/2012: No pulmonary embolism GGOs in the peripheral mid lung zones similar to current findings Previous examination: Urine marijuana: 366-positive Homocystine: 9.3 (within normal limits) Anticardiolipin Ig (<=14) Anti-cardiolipin IgM: antibody: 19 (<=12) Anticardiolipin IgA: <11 (WNL) Anti-beta 2 glycoprotein Ig (greater than 20) Anti-beta-2 glycoprotein IgM: 25 (greater than 20) anti-beta-2 glycoprotein IgA: <9 (within normal limits) Prothrombin gene mutation: G2 [id number] mutation not detected Antithrombin III activity: 109% (within normal limits) Protein C activity: 131% (within normal limits) Protein S activity: 85% (within normal limits) Factor V Leiden mutation: Not detected CSF culture: No growth 10/01/2015 Blood culture: Veillonella species 01/17/16 Echocardiogram 05/18/16 LV: EF= 60%, normal segmental wall motion Historian: patient, family, EMS Review of Systems Constitutional: reports: weakness Eyes: reports: no symptoms ENT: reports: no symptoms Cardiovascular: reports: no symptoms Respiratory: reports: cough, hemoptysis, other Gastrointestinal: reports: belching Genitourinary - Male: reports: no symptoms Musculoskeletal: reports: no symptoms Integumentary: reports: no symptoms Neurologic: reports: no symptoms Psychiatric: reports: no symptoms Endocrine: no symptoms Hematologic / Lymphatic: no symptoms Allergic / Immunologic: no symptoms Past Medical History Past Medical History: #1 epilepsy #2 pleurisy #3 unprovoked pulmonary embolism (treatment with Xeralto) #4 transaminitis #5 tobacco use Past Surgical History: #`1 tooth extraction Family History Heart disease Hypertension Kidney stones Seizures Hypertension, kidney stones, seizures Social History Tobacco: Former user Alcohol: One to 2 beers every other day Student: [employer] Hx Tobacco Use In Past Year?: No (vaporizer 6 mg nicotene) Smoking Status: Former Smoker Marital status: single Occupational Status: employed History of MDRO History of MDRO: No Allergies Coded Allergies: Tramadol (Verified Allergy, Severe, SHORTNESS OF BREATH, 10/03/16) lowers seizure threshold Penicillins (Verified Allergy, Unknown, unknown, 10/03/16) pt Current Medications Reported Home Medications Medications Dose Route/Sig Max Daily Dose Days Date Category Dose Instructions Lamotrigine 25 Mg Tab 75 Mg PO BID 09/29/16 Reported TAKE WITH 200 MG TOTAL DOSE 275MG BID Tylenol (Acetaminophen) 500 Mg Tab 1,000 Mg PO Q6 PRN 06/29/16 Reported Xarelto (Rivaroxaban) 20 Mg Tab 20 Mg PO QPM 06/29/16 Reported Keppra (Levetiracetam) 500 Mg Tab 500 Mg PO BID 05/08/16 Reported Lamictal (Lamotrigine) 200 Mg Tab 200 Mg PO BID 05/08/16 Reported Physical Physical Exam Vital Signs: Date Time Temp Pulse Resp B/P Pulse Ox O2 Delivery O2 Flow Rate FiO2 10/03/16 15:17 36.3 57 18 116/75 96 Room Air 10/03/16 12:00 Room Air 10/03/16 11:30 Room Air 10/03/16 08:18 36.4 52 16 129/74 95 Room Air 10/03/16 08:00 Room Air 10/03/16 07:30 36.4 64 16 113/62 95 Room Air 10/03/16 07:00 95 Room Air 10/03/16 06:34 55 22 114/72 95 Room Air 10/03/16 05:03 50 23 117/61 95 Room Air 10/03/16 04:20 36.3 10/03/16 04:07 56 10/03/16 04:03 Room Air 10/03/16 03:37 58 20 122/72 95 Room Air General Appearance: WELL-APPEARING, WD/WN, NO APPARENT DISTRESS Head: NORMOCEPHALIC Eyes: PERRLA, NO DISCHARGE, EOMI, SCLERAE NORMAL ENT: NORMAL EAR EXAM, NORMAL NASAL EXAM, NORMAL MOUTH EXAM, NORMAL THROAT EXAM , NORMAL DENTAL EXAM Neck: NORMAL RANGE OF MOTION, NO TENDERNESS, TRACHEA MIDLINE, NO STRIDOR Respiratory: BREATH SOUNDS NORMAL, CLEAR TO AUSCULTATION, CLEAR TO PERCUSSION Cardiovasular: REGULAR RATE/RHYTHM, NORMAL S1S2, NO M/G/R, NO MURMUR, NO GALLOP Abdomen: NON TENDER, NORMAL BOWEL SOUNDS, NO REBOUND, NO MASSES, NO GUARDING, NO ORGANOMEGALY, NORMAL RECTAL EXAM Genitourinary - Male: EXTERNAL GENITALIA NORMAL Back: NORMAL INSPECTION, NO MIDLINE TENDERNESS, NO CVA TENDERNESS, NO PARAVERTEBRAL TTP Upper Extremities: NO EDEMA, NO DEFORMITY, NORMAL ROM Lower Extremities: NO EDEMA, NO DEFORMITY, NORMAL ROM Pulses: carotid (R) (2+), carotid (L) (2+), posterior tibial (R), posterior tibial (L) (2+) Neuro: ALERT, ORIENTED x 3, NORMAL MOTOR EXAM, NORMAL SENSATION, NORMAL CEREBELLAR EXAM Reflexes: biceps (R) (2+), bicpes (L) (2+), achilles (R) (2+), achilles (L) (2+ ) Babinski Testing: right (downgoing), left (downgoing) Psychiatric: NORMAL AFFECT, NO SUICIDAL IDEATION, CONTRACTS FOR SAFETY Diagnostics Labs Results Past 24 Hours Test 10/03/16 04:00 10/03/16 06:20 10/03/16 08:10 10/03/16 13:25 Range/Units White Blood Count 7.41 4.8-10.8 K/uL Red Blood Count 4.70 4.7-6.1 M/uL Hemoglobin 14.1 13.9 14.0-18.0 g/dL Hematocrit 37.7 37.8 42-52 % Mean Corpuscular Volume 80.2 80-100 fL Mean Corpuscular Hemoglobin 30.0 25-34 pg Mean Corpuscular Hemoglobin Concent 37.4 32-36 g/dl Platelet Count 89 130-400 K/uL Mean Platelet Volume 10.4 7.4-10.4 fL Neutrophils (%) (Auto) 68.6 % Lymphocytes (%) (Auto) 17.5 % Monocytes (%) (Auto) 9.0 % Eosinophils (%) (Auto) 4.2 % Basophils (%) (Auto) 0.4 % Neutrophils # (Auto) 5.08 1.4-6.5 K/uL Lymphocytes # (Auto) 1.30 1.2-3.4 K/uL Monocytes # (Auto) 0.67 0.11-0.59 K/uL Eosinophils # (Auto) 0.31 0-0.5 K/uL Basophils # (Auto) 0.03 0-0.2 K/uL RDW Standard Deviation 34.4 36.4-46.3 fL RDW Coefficient of Variation 11.7 11.5-14.5 % Immature Granulocyte % (Auto) 0.3 % Immature Granulocyte # (Auto) 0.02 0.00-0.02 K/uL Prothrombin Time 13.4 9.0-12.0 SECONDS Prothromb Time International Ratio 1.2 0.9-1.1 Activated Partial Thromboplast Time 63.4 21.0-31.0 SECONDS Partial Thromboplastin Ratio 2.4 Gastric Fluid pH 3 Gastric Fluid Occult Blood POS NEG Sodium Level 141 136-145 mmol/L Potassium Level 3.7 3.5-5.1 mmol/L Chloride Level 105 98-107 mmol/L Carbon Dioxide Level 26 21-32 mmol/L Anion Gap 10.0 3-11 mmol/L Blood Urea Nitrogen 23 7-18 mg/dl Creatinine 1.30 0.60-1.40 mg/dl Estimated GFR () 87.9 Estimated GFR (Non- 75.8 BUN/Creatinine Ratio 17.4 10-20 Random Glucose 104 70-99 mg/dl Calcium Level 8.9 8.5-10.1 mg/dl Magnesium Level 1.9 1.8-2.4 mg/dl Total Bilirubin 0.7 0.2-1 mg/dl Direct Bilirubin 0.2 0-0.2 mg/dl Aspartate Amino Transf (AST/SGOT) 31 15-37 U/L Alanine Aminotransferase (ALT/SGPT) 44 12-78 U/L Alkaline Phosphatase 95 45-117 U/L Troponin I 0.021 0-0.045 ng/ml Total Protein 7.6 6.4-8.2 gm/dl Albumin 3.9 3.4-5.0 gm/dl Lipase 222 73-393 U/L Thyroid Stimulating Hormone (TSH) 2.610 0.300-4.500 uIu/ml Urine Color YELLOW Urine Appearance CLEAR CLEAR Urine pH 7.0 4.5-7.5 Urine Specific [place] > 1.045 1.000-1.030 Urine Protein NEG NEG Urine Glucose (UA) NEG NEG Urine Ketones 1+ NEG Urine Occult Blood NEG NEG Urine Nitrite NEG NEG Urine Bilirubin NEG NEG Urine Urobilinogen NEG NEG Urine Leukocyte Esterase NEG NEG Urine Opiates Screen NEG NEG Urine Methadone, Qualitative NEG NEG Urine Barbiturates NEG NEG Urine Phencyclidine (PCP) Level NEG NEG Ur Amphetamine/Methamphetamine NEG NEG MDMA (Ecstasy) Screen NEG NEG Urine Benzodiazepines Screen NEG NEG Urine Cocaine Metabolite NEG NEG Urine Marijuana (THC) POS NEG Test 10/03/16 14:24 10/03/16 15:28 10/03/16 17:59 Range/Units Hemoglobin 14.0 14.0-18.0 g/dL Hematocrit 38.0 42-52 % Erythrocyte Sedimentation Rate 22 0-14 mm/hr Troponin I 0.016 0-0.045 ng/ml Diagnostic Radiology CT angio: Compared to CT angiogram from 05/10/2016 No signs of proximal pulmonary emboli Diffuse GGOs greatest in the mid lung zones and dependent lung regions Diffuse mediastinal lymphadenopathy EKG Interpretation: NORMAL EKG Impression Assessment and Plan 26 y/o male with abnormal Hx: PE, hemoptysis and abnormal GGO on CT thorax 1) RESP: I will send off for an RUDDY panel, HIV, ESR, CRP and perform bronchoscopy tomorrow. The patient notes a 4-5 year hx of pleurisy and GGO changes in retrospect seen in CT from 05/26/12. Full work-up for vasculitic and hyper-coag states is warranted. Suggest we involve Hematology for further assistance.
[2016-10-03 19:56] VITALS: BP 109/65; PULSE 57; TEMP 36.7; O2SAT 95
[2016-10-03 20:13] VITALS: BP 107/66; PULSE 69; TEMP 36.6; O2SAT 92
[2016-10-03] MEDS: MoRPHine SULFATE 4 MG/ML 1 ML CARP\\VIAL IV PRN (20:57)
[2016-10-03 21:29] LABS: C-REACTIVE PROTEIN 0.74 mg/dl (0-0.29)
--- NOTE | 2016-10-03 22:08 | DIAGNOSTIC IMAGING REPORT ---
BILATERAL LOWER EXTREMITY VENOUS DOPPLER CLINICAL HISTORY: Hemoptysis. COMPARISON STUDY: Bilateral lower extremity venous Doppler May 20, 2016 TECHNIQUE: Sonography of the deep venous system of the bilateral lower extremities was performed. Compression and augmentation were evaluated. FINDINGS: The bilateral common femoral, superficial femoral and popliteal veins were compressible. Augmentation was normal. Flow was shown within the deep calf vessels. IMPRESSION: No evidence of deep venous thrombus within the bilateral lower extremities. Electronically signed by: Fernando Pérez M.D. 10/03/2016 10:06 PM Dictated Date/Time: 10/03/2016 10:05 PM
[2016-10-04] VITALS (17 sets, daily range): BP systolic 100–146; BP diastolic 56–94; PULSE 56–88; TEMP 36.3–36.8; O2SAT 91–98
[2016-10-04] MEDS: OXYCODONE/ACETAMINOPHEN 5-325 TAB PO PRN (01:26)
[2016-10-04] MEDS: MoRPHine SULFATE 4 MG/ML 1 ML CARP\\VIAL IV PRN ×3 (02:10→20:21)
[2016-10-04] MEDS: SODIUM CHLORIDE 0.9% 1000ML 1,000 ML IV SCH ×2 (03:33→15:47)
[2016-10-04] MEDS: ONDANSETRON INJ 2 MG/ML 2 ML VIAL IV PRN ×3 (06:12→23:33)
[2016-10-04 06:48] LABS: HEMATOCRIT 37.6 % (42-52); MEAN CELL VOLUME 83.4 fL (80-100); MEAN CORPUSCULAR HEMOGLOBIN 29.9 pg (25-34); MEAN CORPUSCULAR HGB CONC 35.9 g/dl (32-36); RED BLOOD COUNT 4.51 M/uL (4.7-6.1); WHITE BLOOD COUNT 7.66 K/uL (4.8-10.8)
[2016-10-04 07:19] LABS: BUN/CREATININE RATIO 12.2 (10-20); CALCIUM 8.7 mg/dl (8.5-10.1); CREATININE 1.3 mg/dl (0.60-1.40); POTASSIUM 3.8 mmol/L (3.5-5.1)
[2016-10-04 07:37] LABS: MEAN PLATELET VOLUME 10.5 fL (7.4-10.4); PLATELET COUNT 81 K/uL (130-400)
[2016-10-04 07:41] LABS: BASO % 0.3 %; BASO ABS # 0.02 K/uL (0-0.2); COMPLETE YES; EOS % 2.6 %; IG% 0.1 %; LYMPH ABS # 1.84 K/uL (1.2-3.4); MONO % 6.7 %; NEUT % 66.3 %
--- NOTE | 2016-10-04 08:04 | History & Physical Bridge Note ---
H&P Re-Evaluation Bridge Note: I have examined the patient, reviewed the History & Physical and in the interval since the performance of the History & Physical I have noted the following changes of clinical significance: No changes noted
[2016-10-04] MEDS ORDERED: CONSULT PHARMACY SCH (09:00)
[2016-10-04] MEDS ORDERED: MIDAZOLAM HCL 5 MG/ML 1 ML VIAL IV ONE (10:45)
[2016-10-04] MEDS ORDERED: NURSING VERBAL MED ORDER ONE (10:45)
[2016-10-04] MEDS ORDERED: FENTANYL CITRATE INJ 50 MCG/1 ML 2 ML VIAL IV ONE (10:45)
--- NOTE | 2016-10-04 11:03 | Bronchoscopy Procedure Note ---
Bronchoscopy Procedure Note Procedure: Bronchoscopy, conscious sedation, bronchial alveolar lavage right middle lobe Consent: Obtained to the patient placed in the chart Preprocedural diagnosis: Diffuse alveolar hemorrhage Postprocedural diagnosis: Diffuse groundglass nodules Analgesia: 4% gel lidocaine: Via right naris 2% liquid lidocaine: Via bronchoscopy Sedation: Versed IV: 3 mg Fentanyl IV: 75 g Procedure: The Olympus video bronchoscope was used for this procedure. The bronchoscope was initially passed out through the oropharynx retroflex off the uvula. Retroflex view of the posterior naris no signs of active bleeding or abnormality. Right naris/posterior naris/posterior oropharynx/glottis: Anatomically within normal limits Vocal cords: Proper abduction and abduction and anatomically within normal limits Subglottis/trachea/Jenise: Anatomically within normal limits Right bronchial tree: Right mainstem, anatomically within normal limits Right upper lobe: Anatomically within normal limits Bronchus intermedius: Anatomically within normal limits Right middle lobe: Anatomically within normal limits Right lower lobe: Anatomically within normal limits Left bronchial tree: Left mainstem: Anatomically within normal limits Left upper lobe: Anatomically within normal limits Lingula: Anatomically within normal limits Left lower lobe: Anatomically within normal limits Bronchial alveolar lavage: Right middle lobe and approximately 120 cc with 60 cc removed of ortiz free- flowing fluid. Complications: None Follow-up: Patient will be returned to his room and followed up, I have spoken to the patient's family about the procedure.
[2016-10-04] MEDS: LEVOFLOXACIN 750 MG TAB PO SCH (11:46)
[2016-10-04] MEDS: LEVETIRACETAM 500 MG TAB PO SCH ×2 (11:47→20:21)
--- NOTE | 2016-10-04 12:11 | Progress Note ---
Internal Med Progress Note Date of Service: Oct 04, 2016. Provider Documentation: SUBJECTIVE: Patient is seen and examined at bedside. States having diffuse pleuritic chest pain which worsens with deep breathing. Dizziness is improving. Offers no other complaints. Family at bedside. OBJECTIVE: Vital Signs-as noted below Physical Exam: General Appearance:Moderately built and nourished Head: normocephalic, Atraumatic Eyes: normal inspection, EOMI, PERRLA Neck: supple, Trachea midline Respiratory/Chest: Normal breath sounds, CTA, No accessory muscle use Cardiovascular: S1, S2, No murmur Abdomen/GI:Soft, Non tender, Bowel sounds present Extremities/Musculoskelatal:normal inspection, no edema Neurologic/Psych:AAOX3, grossly no focal neurological deficits Skin: normal color, warm Lab data as noted below. ASSESSMENT & PLAN: Hemoptysis: On Xarelto at home for PE Patient states having hemoptysis since about 8 days S/P bronchoscopy on 10/04/16 Unknown cause of PE per patient S/P Tranexamic acid Hold Xarelto for now Monitor H&H, Transfuse PRN if Hb less than 7.0 Hb stable CTA:Negative for PE Venous Doppler; Negative for DVT Appreciate Pulmonary help ANCA screen:pending Previous Hypercoagulable work up as below Consulted Hemeonchology Follow up Bronchial washing Studies ESR and CRP is mildly elevated Appreciate hematology input: Plan to retest for hypercoagulable state SQ Heparin to prevent DVT/PE for now. If Hb stable, then may need to be bridged to Coumadin Also to consider rheumatology consult ? Atypical pneumonia: Currently afebrile, WBC:wnl Continue Levaquin for now Saturating well on RA Oxygen PRN Complains of pleuritic chest pain: Trend troponin X2 negative, EKG: no signs of ischemia + FOBT: Denies any melena or noticing blood in stools On Xarelto at home which is held May need colonoscopy as outpatient Will consider GI consult if tapan bleeding Dizziness: Likely secondary to dehydration: Admits to poor oral intake prior to admission States having intermittent dizziness which he relates to seizure disorder Improving Continue IV fluids CT head: No acute pathology Monitor for now H/O PE: Unknown cause Xarelto held secondary to hemoptysis CTA: Negative for PE Thrombocytopenia: Likely secondary to acute illness Continue to monitor Counts stable H/O seizure disorder: stable Continue home meds H/O drug abuse: Patient denies IV drugs Drug screen positive for Marijuana DVT Px: Start on SQ heparin: Discussed with Code Status: Full code Disposition: Continue to monitor PROCEDURES: CTA: 1. Study is negative for significant pulmonary embolus. 2. Diffuse bilateral patchy parenchymal infiltrates versus atypical pulmonary edema. 3. Moderate mediastinal and hilar adenopathy CT head: No acute intracranial abnormality. CT ABD: Bibasilar parenchymal infiltrates. Otherwise negative abdomen and pelvis Venous Doppler: No evidence of deep venous thrombus within the bilateral lower extremities. Previous Hypercoagulable work up: Homocystine: 9.3 (within normal limits) Anticardiolipin Ig (<=14) Anti-cardiolipin IgM: antibody: 19 (<=12) Anticardiolipin IgA: <11 (WNL) Anti-beta 2 glycoprotein Ig (greater than 20) Anti-beta-2 glycoprotein IgM: 25 (greater than 20) anti-beta-2 glycoprotein IgA: <9 (within normal limits) Prothrombin gene mutation: [id number] mutation not detected Antithrombin III activity: 109% (within normal limits) Protein C activity: 131% (within normal limits) Protein S activity: 85% (within normal limits) Factor V Leiden mutation: Not detected Vital Signs: Date Time Temp Pulse Resp B/P Pulse Ox O2 Delivery O2 Flow Rate FiO2 10/04/16 16:15 36.3 77 18 115/73 91 Room Air 10/04/16 16:00 Room Air 10/04/16 12:00 Room Air 10/04/16 12:00 Room Air 10/04/16 11:47 65 18 112/59 94 Nasal Cannula 2.0 10/04/16 11:41 Mask 10/04/16 11:10 36.7 68 22 111/60 94 Nasal Cannula 4.0 28 10/04/16 11:00 36.7 81 19 118/56 92 Nasal Cannula 4.0 28 10/04/16 10:50 36.7 86 18 126/80 92 Nasal Cannula 4.0 28 10/04/16 10:40 79 18 133/66 98 Nasal Cannula 4.0 10/04/16 10:40 88 18 146/60 95 Nasal Cannula 4.0 28 10/04/16 10:35 75 18 144/94 94 Nasal Cannula 10.0 10/04/16 10:30 75 18 140/87 98 Nasal Cannula 6.0 10/04/16 10:25 77 16 117/66 96 Nasal Cannula 6.0 10/04/16 10:20 83 18 122/69 96 Nasal Cannula 4.0 10/04/16 10:05 68 18 125/65 96 Nasal Cannula 4.0 10/04/16 09:55 77 18 131/72 96 Room Air 4.0 10/04/16 07:50 36.6 69 18 107/66 92 Room Air 10/04/16 04:01 36.5 56 16 100/66 91 Room Air 10/04/16 04:00 Room Air 10/04/16 00:25 36.7 69 18 106/61 93 Room Air 10/03/16 23:30 Room Air 10/03/16 20:13 36.6 69 18 107/66 92 Room Air 10/03/16 20:00 Room Air 10/03/16 19:56 36.7 57 20 109/65 95 Room Air Lab Results: Results Past 24 Hours Test 10/03/16 20:25 10/03/16 20:40 10/04/16 06:27 10/04/16 11:35 Range/Units Troponin I < 0.015 0-0.045 ng/ml Procalcitonin 0.05 0-0.5 ng/mL Urine Random Total Protein 6.2 0-11.9 mg/dl Urine Hemosiderin White Blood Count 7.66 4.8-10.8 K/uL Red Blood Count 4.51 4.7-6.1 M/uL Hemoglobin 13.5 14.0-18.0 g/dL Hematocrit 37.6 42-52 % Mean Corpuscular Volume 83.4 80-100 fL Mean Corpuscular Hemoglobin 29.9 25-34 pg Mean Corpuscular Hemoglobin Concent 35.9 32-36 g/dl Platelet Count 81 130-400 K/uL Mean Platelet Volume 10.5 7.4-10.4 fL Neutrophils (%) (Auto) 66.3 % Lymphocytes (%) (Auto) 24.0 % Monocytes (%) (Auto) 6.7 % Eosinophils (%) (Auto) 2.6 % Basophils (%) (Auto) 0.3 % Neutrophils # (Auto) 5.08 1.4-6.5 K/uL Lymphocytes # (Auto) 1.84 1.2-3.4 K/uL Monocytes # (Auto) 0.51 0.11-0.59 K/uL Eosinophils # (Auto) 0.20 0-0.5 K/uL Basophils # (Auto) 0.02 0-0.2 K/uL RDW Standard Deviation 37.1 36.4-46.3 fL RDW Coefficient of Variation 12.2 11.5-14.5 % Immature Granulocyte % (Auto) 0.1 % Immature Granulocyte # (Auto) 0.01 0.00-0.02 K/uL Sodium Level 144 136-145 mmol/L Potassium Level 3.8 3.5-5.1 mmol/L Chloride Level 108 98-107 mmol/L Carbon Dioxide Level 28 21-32 mmol/L Anion Gap 8.0 3-11 mmol/L Blood Urea Nitrogen 16 7-18 mg/dl Creatinine 1.30 0.60-1.40 mg/dl Est Creatinine Clear Calc Drug Dose 97.6 ml/min Estimated GFR () 87.9 Estimated GFR (Non- 75.8 BUN/Creatinine Ratio 12.2 10-20 Random Glucose 90 70-99 mg/dl Calcium Level 8.7 8.5-10.1 mg/dl Body Fluid Polynuclear WBCs (%) 73.0 % Body Fluid Mononuclear WBCs (%) 27.0 % Test 10/04/16 18:39 10/04/16 18:48 Range/Units Microbiology Results 10/04/16 Fungal Smear - Final, Resulted 10/04/16 Fungal Culture, Resulted Pending 10/04/16 Acid Fast Stain, Received Pending 10/04/16 Mycobacterial Culture, Received Pending 10/04/16 Gram Stain - Final, Resulted 10/04/16 Bronchoalveolar Lavage Culture, Resulted Pending
[2016-10-04] MEDS: ACETAMINOPHEN 325 MG TAB PO PRN ×2 (13:02→17:56)
[2016-10-04 19:44] LABS: HEMATOCRIT 35.2 % (42-52); MEAN CELL VOLUME 81.1 fL (80-100); MEAN CORPUSCULAR HEMOGLOBIN 29.5 pg (25-34); MEAN CORPUSCULAR HGB CONC 36.4 g/dl (32-36); RED BLOOD COUNT 4.34 M/uL (4.7-6.1); WHITE BLOOD COUNT 5.99 K/uL (4.8-10.8)
[2016-10-04 19:45] LABS: MEAN PLATELET VOLUME 10.1 fL (7.4-10.4); PLATELET COUNT 78 K/uL (130-400)
[2016-10-04 20:04] LABS: BASO % 0.3 %; BASO ABS # 0.02 K/uL (0-0.2); IG% 0.2 %; LYMPH % 18.4 %; MONO % 5.3 %; NEUT % 72.8 %
--- NOTE | 2016-10-04 20:12 | Medical Consult ---
Consultation Date of Consultation: Oct 04, 2016. Attending Physician: Ilya Hoang MD Reason for Consultation: history of unprovoked PE in April 2016 History of Present Illness 26 year old male with history of unprovoked PE in 05/18/16. He states that he had quit smoking prior to the clot. He denies prolonged immobility and states that he was active and going to school and working at that time. He denies any recent surgeries or procedures prior to clot or any prolonged travel or trauma. He has been taking xarelto. He denies any Family history of blood clots or stroke or any blood or bleeding disorder. His CT chest angio in 05/18/16 showed extensive PE throughout left and to a lesser extent RLL distribution. Bilateral parenchymal infiltrate suggesting developing edematous change and less likely inflammatory. Focal pleural based nodular and/or scar left lower lobe most likely representing small pulmonary infarct. Venous doppler bilateral lower extremitt 05/20/16 no DVT Hypercoagulable workup at that time showed: positive lupus anticoagulant and cardiolipin antibody IgG 61, cardiolipin IgM 19 B2 glycoprotein Ab IgM 25, B2 glycoprotein Ab IgG 57 Factor V leiden - not detected Prothrombin gene mutation: no detected Prot C 131 Protein S 85 Antithrombin III 109 homocysteine 9.3 On 09/29/16 D dimer 350 CRP 0.74 He is admitted with cough and chest pain/pleurisy. Patient states that he has bilateral pleurisy for a while now but over the past 1 week he has been having hemoptysis. He denies any epistaxis or gingival bleeding or bruising. He denies any melena or hematochezia. He denies any fever or chills or night sweats or swollen glands. He states appetite has been good. His CT scan on 10/03/16 was negative for sig PE. Diffuse bilateral patchy parenchymal infiltrates versus atypical pulmonary edema and moderate mediastinal and hilar adenopathy. He had bronchoscopy and results pending. He states that he was having left leg pain prior to admission but that is not bothering him at this time. Venous doppler was negative for DVT in lower extremities. Past Medical/Surgical History PAST MEDICAL HISTORY: epilepsy, unprovoked PE, pleurisy, former tobacco use transaminitis Family History Heart disease Hypertension Kidney stones Seizures The patient and his mother deny any FH of any blood disorders or bleeding disorders or blood clots or stroke maternal grandfather had melanoma paternal grandmother had ovarian cancer paternal grandfather had arrhythmia Social History Smoking Status: Former Smoker Alcohol Use: occasionally Drug Use: marijuana Marital Status: single Housing Status: lives with family Occupation Status: employed, student Allergies Coded Allergies: Tramadol (Verified Allergy, Severe, SHORTNESS OF BREATH, 10/03/16) lowers seizure threshold Penicillins (Verified Allergy, Unknown, unknown, 10/03/16) pt Current Inpatient Medications Current Inpatient Medications Medications (Trade) Dose Ordered Sig/Brianda Route Start Time Stop Time Status Last Admin Dose Admin Ioversol (Optiray 320) 100 ml UD PRN IV 10/03/16 04:00 10/07/16 03:59 Acetaminophen (Tylenol Tab) 650 mg Q4H PRN PO 10/03/16 07:00 11/02/16 06:59 10/04/16 17:56 650 MG Albuterol/ Ipratropium (Duoneb) 3 ml Q2R PRN INH 10/03/16 07:00 11/02/16 06:59 Benzonatate (Tessalon Perles Cap) 100 mg Q8H PRN PO 10/03/16 07:00 11/02/16 06:59 Morphine Sulfate (MoRPHine SULFATE INJ) 4 mg Q3H PRN IV 10/03/16 07:00 10/17/16 06:59 10/04/16 07:31 4 MG Oxycodone/ Acetaminophen (Percocet 5-325mg Tab) 1 tab Q6H PRN PO 10/03/16 07:00 10/17/16 06:59 10/04/16 01:26 1 TAB Lamotrigine (Lamictal Tab) 75 mg BID PO 10/03/16 09:00 11/02/16 08:59 10/04/16 11:46 75 MG Lamotrigine (Lamictal Tab) 200 mg BID PO 10/03/16 09:00 11/02/16 08:59 10/04/16 11:46 200 MG Levetiracetam (Keppra Tab) 500 mg BID PO 10/03/16 09:00 11/02/16 08:59 10/04/16 11:47 500 MG Ondansetron HCl 4 mg 4 mg Q6H PRN IV 10/03/16 07:00 11/02/16 06:59 10/04/16 17:56 4 MG Promethazine HCl 12.5 mg/Sodium Chloride 50.5 ml @ 204 mls/hr Q6H PRN IV 10/03/16 07:00 11/02/16 06:59 Lorazepam/Syringe (Ativan Inj/ Syringe) 1 ml @ 1 mls/min Q4H PRN IV 10/03/16 08:00 11/02/16 07:59 Levofloxacin (Consult) 1 ea UD PRN N/A 10/03/16 08:15 10/13/16 08:14 Levofloxacin 750 mg 750 mg DAILY@11 PO 10/04/16 11:00 10/10/16 10:59 10/04/16 11:46 750 MG Sodium Chloride (Nss 1000ml) 1,000 ml @ 80 mls/hr [id number] IV 10/03/16 14:45 11/02/16 14:44 10/04/16 15:47 80 MLS/HR Review of Systems Constitutional: + fatigue (mild), No chills, No fever, No sweats, No weight loss ENT: No hearing loss, No sore throat, No trouble swallowing, No unusual epistaxis Respiratory: + cough, + hemoptysis, + problem reported (pleuritic pain), No dyspnea on exertion, No shortness of breath, No wheezing Cardiovascular: + chest pain (pleuritic - see HPI ), No PND, No edema, No orthopnea, No palpitations Abdomen: No diarrhea (had RLQ), No nausea, No pain (states had discomfort R lower abdomen earlier 08/31 but that now gone ), No vomiting Musculoskeletal: No calf pain, No joint pain, No swelling Genitourinary - Male: No hematuria Neurologic: + vertigo, No numbness/tingling Hematologic / Lymphatic: No night sweats, No swollen lymph nodes Integumentary: No itch, No rash Physical Exam Date Time Temp Pulse Resp B/P Pulse Ox O2 Delivery O2 Flow Rate FiO2 10/04/16 16:15 36.3 77 18 115/73 91 Room Air 10/04/16 16:00 Room Air 10/04/16 12:00 Room Air 10/04/16 12:00 Room Air 10/04/16 11:47 65 18 112/59 94 Nasal Cannula 2.0 3/16/17 11:41 Mask 10/04/16 11:10 36.7 68 22 111/60 94 Nasal Cannula 4.0 28 10/04/16 11:00 36.7 81 19 118/56 92 Nasal Cannula 4.0 28 10/04/16 10:50 36.7 86 18 126/80 92 Nasal Cannula 4.0 28 10/04/16 10:40 79 18 133/66 98 Nasal Cannula 4.0 10/04/16 10:40 88 18 146/60 95 Nasal Cannula 4.0 28 10/04/16 10:35 75 18 144/94 94 Nasal Cannula 10.0 10/04/16 10:30 75 18 140/87 98 Nasal Cannula 6.0 10/04/16 10:25 77 16 117/66 96 Nasal Cannula 6.0 10/04/16 10:20 83 18 122/69 96 Nasal Cannula 4.0 10/04/16 10:05 68 18 125/65 96 Nasal Cannula 4.0 10/04/16 09:55 77 18 131/72 96 Room Air 4.0 10/04/16 07:50 36.6 69 18 107/66 92 Room Air 10/04/16 04:01 36.5 56 16 100/66 91 Room Air 10/04/16 04:00 Room Air 10/04/16 00:25 36.7 69 18 106/61 93 Room Air 10/03/16 23:30 Room Air 10/03/16 20:13 36.6 69 18 107/66 92 Room Air 10/03/16 20:00 Room Air 10/03/16 19:56 36.7 57 20 109/65 95 Room Air General Appearance: WD/WN, no apparent distress Head: normocephalic, atraumatic Eyes: sclerae normal Neck: supple, no adenopathy, no JVD Respiratory/Chest: chest non-tender, lungs clear, normal breath sounds, no respiratory distress, no accessory muscle use Cardiovascular: regular rate, rhythm, no edema, no gallop, no JVD, no murmur Abdomen/GI: normal bowel sounds, non tender, soft, no organomegaly, + pertinent finding (nondistended, no guarding or rebound, no palpable organomegaly) Extremities/Musculoskelatal: no calf tenderness, no pedal edema, non-tender Neurologic/Psych: no motor/sensory deficits (grossly nonfocal), alert, oriented x 3 Skin: warm/dry, no rash Lymphatic: no adenopathy Laboratory Results Last 24 Hours Test 10/03/16 20:25 10/03/16 20:40 10/04/16 06:27 10/04/16 11:35 Troponin I < 0.015 ng/ml Procalcitonin 0.05 ng/mL Urine Random Total Protein 6.2 mg/dl Urine Hemosiderin White Blood Count 7.66 K/uL Red Blood Count 4.51 M/uL Hemoglobin 13.5 g/dL Hematocrit 37.6 % Mean Corpuscular Volume 83.4 fL Mean Corpuscular Hemoglobin 29.9 pg Mean Corpuscular Hemoglobin Concent 35.9 g/dl Platelet Count 81 K/uL Mean Platelet Volume 10.5 fL Neutrophils (%) (Auto) 66.3 % Lymphocytes (%) (Auto) 24.0 % Monocytes (%) (Auto) 6.7 % Eosinophils (%) (Auto) 2.6 % Basophils (%) (Auto) 0.3 % Neutrophils # (Auto) 5.08 K/uL Lymphocytes # (Auto) 1.84 K/uL Monocytes # (Auto) 0.51 K/uL Eosinophils # (Auto) 0.20 K/uL Basophils # (Auto) 0.02 K/uL RDW Standard Deviation 37.1 fL RDW Coefficient of Variation 12.2 % Immature Granulocyte % (Auto) 0.1 % Immature Granulocyte # (Auto) 0.01 K/uL Sodium Level 144 mmol/L Potassium Level 3.8 mmol/L Chloride Level 108 mmol/L Carbon Dioxide Level 28 mmol/L Anion Gap 8.0 mmol/L Blood Urea Nitrogen 16 mg/dl Creatinine 1.30 mg/dl Est Creatinine Clear Calc Drug Dose 97.6 ml/min Estimated GFR () 87.9 Estimated GFR (Non- 75.8 BUN/Creatinine Ratio 12.2 Random Glucose 90 mg/dl Calcium Level 8.7 mg/dl Body Fluid Polynuclear WBCs (%) 73.0 % Body Fluid Mononuclear WBCs (%) 27.0 % Test 10/04/16 18:39 10/04/16 18:48 Assessment & Plan 26 year old male with a history of unprovoked PE. Review of his prior hypercoagulable workup reveals positive lupus anticoagulant and elevated cardiolipin IgG 61 and B2 glycoprotein IgG 57. The Cardiolipin IgM was 19 and B2 glycoprotein was 25 at that time. Recommend check repeat lupus anticoagulant, and recheck cardiolipin and B2 glycoprotein antibodies. Recommend start prophylactic dose heparin in the mean time given his history of unprovoked PE and since his anticoagulation is on hold due to hemoptysis Once hemoptysis resolve and ok from pulmonary standpoint, recommend IV heparin per protocol and if no bleeding issue, transition to coumadin at that time for INR goal 2 to 3 and he will need to closely follow up with coumadin clinic. Monitor serial CBC w/ diff Recommend that you also consider consult GI as well for his stool occult positive. Recommend rheumatology evaluation as well given the positive lupus anticoagulant and cardiolipin antibodies and his CT scan findings to rule out any vasculitis or collagen vascular disease. Thrombocytopenia: check CBC w/ diff peripheral smear, b12, folate, immature platelet fraction. Follow up in the office upon discharge. Thanks you for allowing us to participate in the care of this patient Discussed with Dr Hoang
[2016-10-04] MEDS: HEPARIN SOD 5000 UNIT/0.5 ML CARP SQ SCH (21:53)
[2016-10-05] VITALS (8 sets, daily range): BP systolic 105–136; BP diastolic 65–76; PULSE 66–75; TEMP 36.4–36.9; O2SAT 90–96
[2016-10-05] MEDS: MoRPHine SULFATE 4 MG/ML 1 ML CARP\\VIAL IV PRN ×2 (00:30→05:01)
[2016-10-05] MEDS: SODIUM CHLORIDE 0.9% 1000ML 1,000 ML IV SCH ×2 (04:13→17:16)
[2016-10-05] MEDS: ONDANSETRON INJ 2 MG/ML 2 ML VIAL IV PRN ×2 (05:32→17:15)
[2016-10-05] MEDS: HEPARIN SOD 5000 UNIT/0.5 ML CARP SQ SCH ×2 (05:37→14:23)
[2016-10-05] MEDS: ACETAMINOPHEN 325 MG TAB PO PRN ×2 (06:30→18:58)
[2016-10-05 07:07] LABS: HEMATOCRIT 36.5 % (42-52); MEAN CELL VOLUME 81.8 fL (80-100); MEAN CORPUSCULAR HEMOGLOBIN 29.6 pg (25-34); MEAN CORPUSCULAR HGB CONC 36.2 g/dl (32-36); RED BLOOD COUNT 4.46 M/uL (4.7-6.1); WHITE BLOOD COUNT 5.64 K/uL (4.8-10.8)
[2016-10-05 07:24] LABS: PLATELET COUNT 86 K/uL (130-400)
[2016-10-05 07:33] LABS: BUN/CREATININE RATIO 10.6 (10-20); CALCIUM 8.7 mg/dl (8.5-10.1); CREATININE 1.3 mg/dl (0.60-1.40)
[2016-10-05] MEDS: LEVETIRACETAM 500 MG TAB PO SCH ×2 (08:15→21:40)
[2016-10-05 08:41] LABS: BASO % 0.4 %; BASO ABS # 0.02 K/uL (0-0.2); COMPLETE YES; EOS % 3.4 %; IG% 0.2 %; LYMPH % 24.1 %; LYMPH ABS # 1.36 K/uL (1.2-3.4); MEAN PLATELET VOLUME 10.6 fL (7.4-10.4); MONO % 9.4 %; NEUT % 62.5 %
[2016-10-05] MEDS ORDERED: METOCLOPRAMIDE HCL INJ 5 MG/ML 2 ML VIAL IV STA (10:18)
[2016-10-05] MEDS: LEVOFLOXACIN 750 MG TAB PO SCH ×2 (10:50→18:58)
--- NOTE | 2016-10-05 11:01 | Gastrointestinal Consultation ---
Gastrointestinal Consultation Date of Consultation: Oct 05, 2016 Attending Physician: Dr. Hoang Consulting Physician: Dr. Javier Reason for Consultation: Hematemesis History of Present Illness Patient is a 26 year old male patient of Dr. Boyd with a hx of PEs, epilepsy , was admitted yesterday for hemoptysis and dizziness. GI is consulted to r/o a GI bleed. He experienced an unprovoked PE last fall and was placed on Xarelto. About 9 days ago, he began with cough about 1 1/2 wks ago and was seen in urgent care, dx'ed with a viral URI. In the past few days, he developed dizziness, weakness, nausea and hemoptysis. On arrival, Hb was normal at 14.1 and today is 13.2. CTA of the chest with diffuse bilateral patchy parenchymal infiltrates versus atypical pulmonary edema and moderate mediastinal and hilar adenopathy without active PE. Non contrast Ct of the abd/pelvis as unremarkable. While in the ED, he vomiting and emesis was tainted with bright red blood. Pt initially denied any abdominal pain though notes mentioned some epigastric discomfort. He was tender over the epigastric area on exam. Since admission, he is being transitioned to Coumadin. Past Medical/Surgical History Medical Problems: (1) Abdominal pain Status: Acute (2) LOU (acute kidney injury) Status: Acute (3) Hematemesis Status: Acute (4) Hemoptysis Status: Acute (5) Hemoptysis Status: Acute (6) Left leg pain Status: Acute (7) Metabolic acidosis Status: Acute (8) Pleuritis Status: Acute (9) Recurrent seizures Status: Acute (10) Seizure Status: Acute (11) Vertigo Status: Acute (12) Vomiting Status: Acute Past Medical History: 1. Seizure disorder. 2. PE, 2016 3. Anxiety Past Surgical History: 1. Bronchoscopy during this admission. 2. No prior endoscopies. Family History Heart disease Hypertension Kidney stones Seizures Social History Smoking Status: Former Smoker Alcohol Use: occasionally Drug Use: marijuana Marital Status: single Housing Status: lives with family Occupation Status: employed, student Allergies Coded Allergies: Tramadol (Verified Allergy, Severe, SHORTNESS OF BREATH, 10/03/16) lowers seizure threshold Penicillins (Verified Allergy, Unknown, unknown, 10/03/16) pt Current Medications Home Meds and Scripts Medications Dose Route/Sig Max Daily Dose Days Date Category Dose Instructions Lamotrigine 25 Mg Tab 75 Mg PO BID 09/29/16 Reported TAKE WITH 200 MG TOTAL DOSE 275MG BID Tylenol (Acetaminophen) 500 Mg Tab 1,000 Mg PO Q6 PRN 06/29/16 Reported Xarelto (Rivaroxaban) 20 Mg Tab 20 Mg PO QPM 06/29/16 Reported Keppra (Levetiracetam) 500 Mg Tab 500 Mg PO BID 05/08/16 Reported Lamictal (Lamotrigine) 200 Mg Tab 200 Mg PO BID 05/08/16 Reported Review of Systems Constitutional: + weakness (mild), No chills, No fever, No sweats, No weight loss Eyes: No eye pain, No redness ENT: No pain on swallowing, No sore throat, No trouble swallowing Respiratory: No cough, No dyspnea on exertion, No shortness of breath, No wheezing Cardiac: No chest pain, No edema, No palpitations Abdomen: + constipation (no BM in 2 days), + nausea, + see HPI, + vomiting, No diarrhea Neuro: + problem reported ("feel a bit dizzy with ambulation"), No balance problems, No memory loss, No numbness/tingling, No vertigo, No weakness Psych: No anxiety, No depression symptoms, No insomnia Heme: No abnormal bleeding/bruising, No night sweats Endo: No excessive thirst, No excessive urination Skin: No itch, No jaundice, No new/changing skin lesions, No rash Physical Exam Date Time Temp Pulse Resp B/P Pulse Ox O2 Delivery O2 Flow Rate FiO2 10/05/16 07:28 36.4 66 18 106/65 94 10/05/16 04:00 Room Air 10/05/16 04:00 36.7 68 20 105/71 90 Room Air 10/05/16 00:01 Room Air 10/04/16 23:33 36.8 79 20 106/64 91 Room Air 10/04/16 20:25 36.7 77 18 121/73 93 10/04/16 20:00 Room Air 10/04/16 16:15 36.3 77 18 115/73 91 Room Air 10/04/16 16:00 Room Air 10/04/16 12:00 Room Air 10/04/16 12:00 Room Air 10/04/16 11:47 65 18 112/59 94 Nasal Cannula 2.0 10/04/16 11:41 Mask 10/04/16 11:10 36.7 68 22 111/60 94 Nasal Cannula 4.0 28 10/04/16 11:00 36.7 81 19 118/56 92 Nasal Cannula 4.0 28 10/04/16 10:50 36.7 86 18 126/80 92 Nasal Cannula 4.0 28 10/04/16 10:40 79 18 133/66 98 Nasal Cannula 4.0 10/04/16 10:40 88 18 146/60 95 Nasal Cannula 4.0 28 10/04/16 10:35 75 18 144/94 94 Nasal Cannula 10.0 10/04/16 10:30 75 18 140/87 98 Nasal Cannula 6.0 General Appearance: no apparent distress Eyes: normal inspection, EOMI Neck: supple, no adenopathy, thyroid normal, no JVD Respiratory/Chest: chest non-tender, lungs clear, normal breath sounds, no accessory muscle use Cardiovascular: regular rate, rhythm, no JVD, no murmur Abdomen: normal bowel sounds, soft, no organomegaly, + tenderness (epigastric) Extremities: normal inspection, no pedal edema, normal capillary refill Neurologic/Psych: alert, normal mood/affect, oriented x 3 Skin: normal color, no jaundice, warm/dry, no rash Laboratory Results Last 24 Hours Test 10/04/16 11:35 10/04/16 19:33 10/05/16 06:19 Body Fluid Polynuclear WBCs (%) 73.0 % Body Fluid Mononuclear WBCs (%) 27.0 % White Blood Count 5.99 K/uL 5.64 K/uL Red Blood Count 4.34 M/uL 4.46 M/uL Hemoglobin 12.8 g/dL 13.2 g/dL Hematocrit 35.2 % 36.5 % Mean Corpuscular Volume 81.1 fL 81.8 fL Mean Corpuscular Hemoglobin 29.5 pg 29.6 pg Mean Corpuscular Hemoglobin Concent 36.4 g/dl 36.2 g/dl Platelet Count 78 K/uL 86 K/uL Mean Platelet Volume 10.1 fL 10.6 fL Neutrophils (%) (Auto) 72.8 % 62.5 % Lymphocytes (%) (Auto) 18.4 % 24.1 % Monocytes (%) (Auto) 5.3 % 9.4 % Eosinophils (%) (Auto) 3.0 % 3.4 % Basophils (%) (Auto) 0.3 % 0.4 % Neutrophils # (Auto) 4.36 K/uL 3.53 K/uL Lymphocytes # (Auto) 1.10 K/uL 1.36 K/uL Monocytes # (Auto) 0.32 K/uL 0.53 K/uL Eosinophils # (Auto) 0.18 K/uL 0.19 K/uL Basophils # (Auto) 0.02 K/uL 0.02 K/uL RDW Standard Deviation 34.9 fL 35.3 fL RDW Coefficient of Variation 11.9 % 12.0 % Immature Granulocyte % (Auto) 0.2 % 0.2 % Immature Granulocyte # (Auto) 0.01 K/uL 0.01 K/uL Immature Platelet Fraction 6.0 % Peripheral Blood Smear Path Consult Vitamin B12 Level 859 pg/mL Folate 14.17 ng/mL Sodium Level 141 mmol/L Potassium Level 4.0 mmol/L Chloride Level 106 mmol/L Carbon Dioxide Level 28 mmol/L Anion Gap 7.0 mmol/L Blood Urea Nitrogen 14 mg/dl Creatinine 1.30 mg/dl Est Creatinine Clear Calc Drug Dose 97.4 ml/min Estimated GFR () 87.9 Estimated GFR (Non- 75.8 BUN/Creatinine Ratio 10.6 Random Glucose 81 mg/dl Calcium Level 8.7 mg/dl Se HPI for CTA chest and CT abd/pelvis. Impression Patient is a 26 year old male with hemoptysis, hematemesis, occult positive stool. GI is asked to r/o GI bleeding/potential bleeding prior to pt being transitioned to Coumadin. Plan 1. Because pt drank clear liquids this morning (most recently at 9AM), Reglan 10mg IV once, now. 2. Plan for EGD this afternoon by Dr. Javier. 3. Keep NPO until after EGD (as of 9AM). 4. Further recommendations to follow EGD. Attg addendum: I interviewed and examined pt, reviewed chart and labs. Pt with PE, h/o smal vol hematemesis, hemoptysis. EGD today, recs to follow.
[2016-10-05 14:22] LABS: COMPLETE YES
--- NOTE | 2016-10-05 14:52 | Progress Note ---
Internal Med Progress Note Date of Service: Oct 05, 2016. Provider Documentation: SUBJECTIVE: Patient is seen and examined at bedside. Still has some hemoptysis. Also reports some diffuse pleuritic chest pain while lying down. Dizziness is improving but denies any weakness. Offers no other complaints. Family at bedside. Planned for EGD today. OBJECTIVE: Vital Signs-as noted below Physical Exam: General Appearance:Moderately built and nourished Head: normocephalic, Atraumatic Eyes: normal inspection, EOMI, PERRLA Neck: supple, Trachea midline Respiratory/Chest: Normal breath sounds, CTA, No accessory muscle use Cardiovascular: S1, S2, No murmur Abdomen/GI:Soft, Non tender, Bowel sounds present Extremities/Musculoskelatal:normal inspection, no edema Neurologic/Psych:AAOX3, grossly no focal neurological deficits Skin: normal color, warm Lab data as noted below. ASSESSMENT & PLAN: Hemoptysis: On Xarelto at home for PE Patient states having hemoptysis since about 8 days S/P bronchoscopy on 10/04/16 Unknown cause of PE per patient S/P Tranexamic acid Xarelto discontinued Monitor H&H, Transfuse PRN if Hb less than 7.0 Hb stable CTA:Negative for PE Venous Doppler; Negative for DVT Appreciate Pulmonary help ANCA screen:pending TSH, B12, Folate levels:wnl Previous Hypercoagulable work up as below: ? antiphospholipid antibody syndrome RUDDY X2: Negative in past: Less likely SLE Appreciate Hemeoncology input Follow up Bronchial washing Studies ESR and CRP is mildly elevated Start on IV heparin to prevent DVT/PE. If Hb stable, then plan to be bridged to Coumadin tomorrow Rheumatology consulted per recommendations from Hemeoncology Repeat hypercoagulable work up pending ? Atypical pneumonia: Currently afebrile, WBC:wnl Continue Levaquin for now Saturating well on RA Oxygen PRN Complains of pleuritic chest pain: Trend troponin X2 negative, EKG: no signs of ischemia + FOBT/Hematemesis: Denies any melena or noticing blood in stools On Xarelto at home which is held Appreciate GI input EGD: Done today Protonix BID for 2 weeks and then stop Check for Stool for H.Pylori: Plan to treat if positive OK from GI stand point to start anticoagulation:Discussed on 10/05/16 Dizziness: Likely secondary to dehydration: Admits to poor oral intake prior to admission States having intermittent dizziness which he relates to seizure disorder Improving Continue IV fluids CT head: No acute pathology Monitor for now H/O PE: Unknown cause Xarelto held secondary to hemoptysis CTA: Negative for PE Thrombocytopenia: Likely secondary to acute illness Continue to monitor Counts stable H/O seizure disorder: stable Continue home meds H/O drug abuse: Patient denies IV drugs Drug screen positive for Marijuana DVT Px: Started on SQ heparin: Discussed with Code Status: Full code Disposition: Continue to monitor PROCEDURES: CTA: 1. Study is negative for significant pulmonary embolus. 2. Diffuse bilateral patchy parenchymal infiltrates versus atypical pulmonary edema. 3. Moderate mediastinal and hilar adenopathy CT head: No acute intracranial abnormality. CT ABD: Bibasilar parenchymal infiltrates. Otherwise negative abdomen and pelvis Venous Doppler: No evidence of deep venous thrombus within the bilateral lower extremities. Previous Hypercoagulable work up: Homocystine: 9.3 (within normal limits) Anticardiolipin Ig (<=14) Anti-cardiolipin IgM: antibody: 19 (<=12) Anticardiolipin IgA: <11 (WNL) Anti-beta 2 glycoprotein Ig (greater than 20) Anti-beta-2 glycoprotein IgM: 25 (greater than 20) anti-beta-2 glycoprotein IgA: <9 (within normal limits) Prothrombin gene mutation: [id number] mutation not detected Antithrombin III activity: 109% (within normal limits) Protein C activity: 131% (within normal limits) Protein S activity: 85% (within normal limits) Factor V Leiden mutation: Not detected Vital Signs: Date Time Temp Pulse Resp B/P Pulse Ox O2 Delivery O2 Flow Rate FiO2 10/05/16 16:38 73 16 120/67 96 Room Air 10/05/16 16:23 73 16 124/67 96 Room Air 10/05/16 16:08 84 16 133/66 94 Room Air 10/05/16 15:11 36.8 79 20 117/58 92 Room Air 10/05/16 15:01 36.9 70 18 136/71 96 10/05/16 12:00 Room Air 10/05/16 11:29 36.5 73 18 111/70 95 10/05/16 08:00 Room Air 10/05/16 07:28 36.4 66 18 106/65 94 10/05/16 04:00 Room Air 10/05/16 04:00 36.7 68 20 105/71 90 Room Air 10/05/16 00:01 Room Air 10/04/16 23:33 36.8 79 20 106/64 91 Room Air 10/04/16 20:25 36.7 77 18 121/73 93 10/04/16 20:00 Room Air Lab Results: Results Past 24 Hours Test 10/04/16 19:33 10/05/16 06:19 10/05/16 18:16 Range/Units White Blood Count 5.99 5.64 4.8-10.8 K/uL Red Blood Count 4.34 4.46 4.7-6.1 M/uL Hemoglobin 12.8 13.2 14.0-18.0 g/dL Hematocrit 35.2 36.5 42-52 % Mean Corpuscular Volume 81.1 81.8 80-100 fL Mean Corpuscular Hemoglobin 29.5 29.6 25-34 pg Mean Corpuscular Hemoglobin Concent 36.4 36.2 32-36 g/dl Platelet Count 78 86 130-400 K/uL Mean Platelet Volume 10.1 10.6 7.4-10.4 fL Neutrophils (%) (Auto) 72.8 62.5 % Lymphocytes (%) (Auto) 18.4 24.1 % Monocytes (%) (Auto) 5.3 9.4 % Eosinophils (%) (Auto) 3.0 3.4 % Basophils (%) (Auto) 0.3 0.4 % Neutrophils # (Auto) 4.36 3.53 1.4-6.5 K/uL Lymphocytes # (Auto) 1.10 1.36 1.2-3.4 K/uL Monocytes # (Auto) 0.32 0.53 0.11-0.59 K/uL Eosinophils # (Auto) 0.18 0.19 0-0.5 K/uL Basophils # (Auto) 0.02 0.02 0-0.2 K/uL RDW Standard Deviation 34.9 35.3 36.4-46.3 fL RDW Coefficient of Variation 11.9 12.0 11.5-14.5 % Immature Granulocyte % (Auto) 0.2 0.2 % Immature Granulocyte # (Auto) 0.01 0.01 0.00-0.02 K/uL Immature Platelet Fraction 6.0 0.9-8.3 % Peripheral Blood Smear Path Consult Vitamin B12 Level 859 211-911 pg/mL Folate 14.17 >5.38 ng/mL Sodium Level 141 136-145 mmol/L Potassium Level 4.0 3.5-5.1 mmol/L Chloride Level 106 98-107 mmol/L Carbon Dioxide Level 28 21-32 mmol/L Anion Gap 7.0 3-11 mmol/L Blood Urea Nitrogen 14 7-18 mg/dl Creatinine 1.30 0.60-1.40 mg/dl Est Creatinine Clear Calc Drug Dose 97.4 ml/min Estimated GFR () 87.9 Estimated GFR (Non- 75.8 BUN/Creatinine Ratio 10.6 10-20 Random Glucose 81 70-99 mg/dl Calcium Level 8.7 8.5-10.1 mg/dl
[2016-10-05] MEDS ORDERED: LIDOCAINE HCL 2% 2 ML VIAL (20MG/ML) ONE (15:38)
[2016-10-05] MEDS ORDERED: PROPOFOL IV EMULSION 10 MG/ML 20 ML VIAL IV ONE (15:38)
[2016-10-05] MEDS ORDERED: FENTANYL CITRATE INJ 50 MCG/1 ML 2 ML VIAL ONE (15:38)
--- NOTE | 2016-10-05 15:40 | Pulmonology Progress Note ---
Pulmonary Progress Note Date of Service Oct 05, 2016. Attending Dr. Lepe Subjective Patient doing well today with no hemoptysis but continued vertigo Objective patient is able to complete full sentences with no use of accessory muscles or tachypnea VS: reviewed and stable RESP: CTA (b) CARD: S1 S2 RRR no m/r/g EXT: no edema ABD: +BS soft non-tender Pending labs: Hypercoagulable studies/Vasculitic Tox screen: Marijuana positive Bronchial lavage (10/04/16) Polys: 73% Monos: 27% Pending: CMV, HSV, viral panel Mycobacterial stains: Normal bibi Pathology: Pending Bilateral lower extremity venous Dopplers: 10/03/2016 No evidence of DVT in bilateral lower extremities . Assessment & Plan 26yo male her for work-up of hemoptysis, anemia, thrombocytopenia and previous PE with continued pleurisy: 1) Bronchoscopy: Patient is s/p bronchoscopy doing with results pending and no active signs of infection. Will continue to f/u. 2) PE/Pleurisy: review of previous lab work-up along with clinical history is suggestive of systemic disorder such as Lupus (which his aunt has) and would tie his hx of seizure, PE, pleurisy, thrombocytopenia and other clinical abnormalities together. Appreciate hematologies help for further work-up. Data Medications: Current Inpatient Medications Medications (Trade) Dose Ordered Sig/Brianda Route Start Time Stop Time Status Last Admin Dose Admin Ioversol (Optiray 320) 100 ml UD PRN IV 10/03/16 04:00 10/07/16 03:59 Acetaminophen (Tylenol Tab) 650 mg Q4H PRN PO 10/03/16 07:00 11/02/16 06:59 10/05/16 06:30 650 MG Albuterol/ Ipratropium (Duoneb) 3 ml Q2R PRN INH 10/03/16 07:00 11/02/16 06:59 Benzonatate (Tessalon Perles Cap) 100 mg Q8H PRN PO 10/03/16 07:00 11/02/16 06:59 Morphine Sulfate (MoRPHine SULFATE INJ) 4 mg Q3H PRN IV 10/03/16 07:00 10/17/16 06:59 10/05/16 05:01 4 MG Oxycodone/ Acetaminophen (Percocet 5-325mg Tab) 1 tab Q6H PRN PO 10/03/16 07:00 10/17/16 06:59 10/04/16 01:26 1 TAB Lamotrigine (Lamictal Tab) 75 mg BID PO 10/03/16 09:00 11/02/16 08:59 10/05/16 08:15 75 MG Lamotrigine (Lamictal Tab) 200 mg BID PO 10/03/16 09:00 11/02/16 08:59 10/05/16 08:15 200 MG Levetiracetam (Keppra Tab) 500 mg BID PO 10/03/16 09:00 11/02/16 08:59 10/05/16 08:15 500 MG Ondansetron HCl 4 mg 4 mg Q6H PRN IV 10/03/16 07:00 11/02/16 06:59 10/05/16 05:32 4 MG Promethazine HCl 12.5 mg/Sodium Chloride 50.5 ml @ 204 mls/hr Q6H PRN IV 10/03/16 07:00 11/02/16 06:59 Lorazepam/Syringe (Ativan Inj/ Syringe) 1 ml @ 1 mls/min Q4H PRN IV 10/03/16 08:00 11/02/16 07:59 Levofloxacin (Consult) 1 ea UD PRN N/A 10/03/16 08:15 10/13/16 08:14 Levofloxacin 750 mg 750 mg DAILY@11 PO 10/04/16 11:00 10/10/16 10:59 10/04/16 11:46 750 MG Sodium Chloride (Nss 1000ml) 1,000 ml @ 80 mls/hr [id number] IV 10/03/16 14:45 11/02/16 14:44 10/05/16 04:13 80 MLS/HR Heparin Sodium (Porcine) (Heparin Sq 5000 Unit/0.5ml) 5,000 unit Q8 SQ 10/04/16 22:00 11/03/16 21:59 10/05/16 14:23 5,000 UNIT I & O: 24-Hour Column 10/05/16 07:59 Intake Total 2506 ml Output Total 2100 ml Balance 406 ml Vital Signs: Date Time Temp Pulse Resp B/P Pulse Ox O2 Delivery O2 Flow Rate FiO2 10/05/16 15:11 36.8 79 20 117/58 92 Room Air 10/05/16 15:01 36.9 70 18 136/71 96 10/05/16 12:00 Room Air 10/05/16 11:29 36.5 73 18 111/70 95 10/05/16 08:00 Room Air 10/05/16 07:28 36.4 66 18 106/65 94 10/05/16 04:00 Room Air 10/05/16 04:00 36.7 68 20 105/71 90 Room Air 10/05/16 00:01 Room Air 10/04/16 23:33 36.8 79 20 106/64 91 Room Air 10/04/16 20:25 36.7 77 18 121/73 93 10/04/16 20:00 Room Air 10/04/16 16:15 36.3 77 18 115/73 91 Room Air 10/04/16 16:00 Room Air Laboratory Results: Last 24 Hours Test 10/04/16 19:33 10/05/16 06:19 White Blood Count 5.99 K/uL 5.64 K/uL Red Blood Count 4.34 M/uL 4.46 M/uL Hemoglobin 12.8 g/dL 13.2 g/dL Hematocrit 35.2 % 36.5 % Mean Corpuscular Volume 81.1 fL 81.8 fL Mean Corpuscular Hemoglobin 29.5 pg 29.6 pg Mean Corpuscular Hemoglobin Concent 36.4 g/dl 36.2 g/dl Platelet Count 78 K/uL 86 K/uL Mean Platelet Volume 10.1 fL 10.6 fL Neutrophils (%) (Auto) 72.8 % 62.5 % Lymphocytes (%) (Auto) 18.4 % 24.1 % Monocytes (%) (Auto) 5.3 % 9.4 % Eosinophils (%) (Auto) 3.0 % 3.4 % Basophils (%) (Auto) 0.3 % 0.4 % Neutrophils # (Auto) 4.36 K/uL 3.53 K/uL Lymphocytes # (Auto) 1.10 K/uL 1.36 K/uL Monocytes # (Auto) 0.32 K/uL 0.53 K/uL Eosinophils # (Auto) 0.18 K/uL 0.19 K/uL Basophils # (Auto) 0.02 K/uL 0.02 K/uL RDW Standard Deviation 34.9 fL 35.3 fL RDW Coefficient of Variation 11.9 % 12.0 % Immature Granulocyte % (Auto) 0.2 % 0.2 % Immature Granulocyte # (Auto) 0.01 K/uL 0.01 K/uL Immature Platelet Fraction 6.0 % Peripheral Blood Smear Path Consult Vitamin B12 Level 859 pg/mL Folate 14.17 ng/mL Sodium Level 141 mmol/L Potassium Level 4.0 mmol/L Chloride Level 106 mmol/L Carbon Dioxide Level 28 mmol/L Anion Gap 7.0 mmol/L Blood Urea Nitrogen 14 mg/dl Creatinine 1.30 mg/dl Est Creatinine Clear Calc Drug Dose 97.4 ml/min Estimated GFR () 87.9 Estimated GFR (Non- 75.8 BUN/Creatinine Ratio 10.6 Random Glucose 81 mg/dl Calcium Level 8.7 mg/dl
--- NOTE | 2016-10-05 16:13 | GI REPORT ---
Procedure Date: 10/05/2016 3:49 PM Procedure: Upper GI endoscopy Indications: Hematemesis Medicines: See the Anesthesia note for documentation of the administered medications Complications: No immediate complications. Estimated Blood Loss: Estimated blood loss: none. Procedure: Pre-Anesthesia Assessment: - ASA Grade Assessment: III - A patient with severe systemic disease. After obtaining informed consent, the endoscope was passed under direct vision. Throughout the procedure, the patient's blood pressure, pulse, and oxygen saturations were monitored continuously. The scope was introduced through the mouth, and advanced to the second part of duodenum. The upper GI endoscopy was accomplished without difficulty. The patient tolerated the procedure well. Findings: Small amt of blood in the hypopharynx. The examined esophagus was normal. Patchy stripes of erythema in fundus and in antrum. The stomach was otherwise normal. The duodenum was normal. Impression: Gastritis. No contra-indication to anticoagulation. Recommendation: - Check Hp stool antigen. BID oral PPI. Discharge patient to floor. Angelica Javier M.D. Angelica Javier MD 10/05/2016 4:13:15 PM This report has been signed electronically. Note Initiated On: 10/05/2016 3:49 PM I attest to the content of the Intraoperative Record and orders documented therein, exceptions below
--- NOTE | 2016-10-05 16:37 | Anesthesiology Progress Note ---
Anesthesia Post Op Note Date & Time Oct 05, 2016 at 16:37 Vital Signs Pain Intensity: 0 Vital Signs Past 12 Hours Date Time Temp Pulse Resp B/P Pulse Ox O2 Delivery O2 Flow Rate FiO2 10/05/16 16:23 73 16 124/67 96 Room Air 10/05/16 16:08 84 16 133/66 94 Room Air 10/05/16 15:11 36.8 79 20 117/58 92 Room Air 10/05/16 15:01 36.9 70 18 136/71 96 10/05/16 12:00 Room Air 10/05/16 11:29 36.5 73 18 111/70 95 10/05/16 08:00 Room Air 10/05/16 07:28 36.4 66 18 106/65 94 Notes Mental Status: alert / awake / arousable, participated in evaluation Pt Amnestic to Procedure: Yes Nausea / Vomiting: adequately controlled Pain: adequately controlled Airway Patency, RR, SpO2: stable & adequate BP & HR: stable & adequate Hydration State: stable & adequate Anesthetic Complications: no major complications apparent
--- NOTE | 2016-10-05 17:18 | Progress Note ---
Progress Note Date of Service Oct 05, 2016. Progress Note See EGD notes for details. Will sign off, but please reconsult as needed. Would cont BID PPI x 2 weeks only, then d/c. Please f/u Hp stool ag and rx if pos.
[2016-10-05] MEDS ORDERED: HEPARIN IV LOW DOSE NO BOLUS SCH (18:17)
[2016-10-05] MEDS: HEPARIN 25,000 UNIT/500ML D5W 500 ML IV PRN (19:47)
[2016-10-05 19:55] LABS: PARTIAL THROMBOPLASTIN RATIO 1.7
--- NOTE | 2016-10-05 21:23 | Rheumatology Consultation ---
Rheumatology Consultation Date of Consultation: Oct 05, 2016. Requesting Physician: Dr hoang Attending Physician: Dr Hoang Reason for Consultation: PE, + anticardiolipin abs, pleurisy, ? CTD History of Present Illness Adeel is a 26 y/o male that was overall healthy until last year. Last September 29 he develop seizures and was diagnosed with epilepsy. He was seen in his room with his mother at bedside helping with history. In late fall he developed acute onset chest pain - was told pleurisy and given steroids that help but as he came off the chest pain worsened with SOB. was seen and diagnosed with PE. at that time at [facility] lupus anticoagulant screen was + with elevated IgG at 61, low + IGM as well. also + Beta 2 glycoprotein labs. . he was placed on xalerto and was doing relatively well until these last 1-2 weeks. They report he develop URI/sinusitis symptoms with cough, sinus pressure/congestion. seen at [facility] - told conservative measures. later developed worsening pleuritic chest pain and noted some swelling to left lateral knee - came to ED seen - no leg DVT, Plt count 90, discharged home. several days later developed hemoptysis again, vertigo and blood tinged emesis so came to [facility] ED and was admitted. currently on abx. seen by pulmonology - vasculitic and clotting disorder work up redone. xalerto stopped. noted to be thrombocytopenic. pulm did bronch that was overall normal with negative cultures and mild blood tinged washings. he is on abx. he reports that the pleuritic chest pain is better and only bothers him while laying down and deep breathing. no cardiac chest pain. Had CT PE study with no new PE, no pleural or pericardial effusions. noted to have mild medistinal adenopathy. Dr Erickson of hematology saw patient - likely APS but suggested Rheumatology eval as well. He and his mother deny any family history of autoimmune diseases other than a cousin of the mother's with SLE. no family history of clotting disorders. He was a healthy child and had some adhd. He reports he does have some mild dry eyes and ophthalmology has told him his eyes are dry. no dry mouth. he used to smoke but stopped last year. he does still smoke marijuana regularly. he did not miss his xalerto. no abx use or NSAID use. He had EGD today with gastritis but no bleeding ulcers. GI okay with resuming anticoagulation. He denies any raynaud's, photosensitivity, alopecia, conjunctivitis, inflammatory eye disease, hematuria, rashes. He has had an RUDDY checked twice in the last month that was normal. UA looked fine. He reports he has had pleurisy in the past both times associated with likely bronchitis from smoking. no history of inflammatory arthritis. On labs ESR was 22. His kidney function is in normal range GFR >60 but not normal for a 26 y/o male, Past Medical/Surgical History Medical History: pulmonary embolism, seizure Surgical History: no surgical history Family History no family history of immediate family members with SLE, RA. tona reports that her cousin has SLE Social History Smoking Status: Former Smoker History of Alcohol Use: Yes (1-2beers 2 to 3 times a week) Drug Use: marijuana Marital Status: single Occupation Status: employed, student Review of Systems Constitutional: No chills, No fever Eyes: + problem reported (dryness) Respiratory: + cough, + see HPI Cardiac: + chest pain Abdomen: + see HPI, + vomiting Musculoskeletal: + see HPI Neurologic: + vertigo Skin: + see HPI All Other Systems: Reviewed and Negative Allergies Coded Allergies: Tramadol (Verified Allergy, Severe, SHORTNESS OF BREATH, 10/03/16) lowers seizure threshold Penicillins (Verified Allergy, Unknown, unknown, 10/03/16) pt Medications Current Inpatient Medications Medications (Trade) Dose Ordered Sig/Brianda Route Start Time Stop Time Status Last Admin Dose Admin Ioversol (Optiray 320) 100 ml UD PRN IV 10/03/16 04:00 10/07/16 03:59 Acetaminophen (Tylenol Tab) 650 mg Q4H PRN PO 10/03/16 07:00 11/02/16 06:59 10/05/16 06:30 650 MG Albuterol/ Ipratropium (Duoneb) 3 ml Q2R PRN INH 10/03/16 07:00 11/02/16 06:59 Benzonatate (Tessalon Perles Cap) 100 mg Q8H PRN PO 10/03/16 07:00 11/02/16 06:59 Morphine Sulfate (MoRPHine SULFATE INJ) 4 mg Q3H PRN IV 10/03/16 07:00 10/17/16 06:59 10/05/16 05:01 4 MG Oxycodone/ Acetaminophen (Percocet 5-325mg Tab) 1 tab Q6H PRN PO 10/03/16 07:00 10/17/16 06:59 10/04/16 01:26 1 TAB Lamotrigine (Lamictal Tab) 75 mg BID PO 10/03/16 09:00 11/02/16 08:59 10/05/16 08:15 75 MG Lamotrigine (Lamictal Tab) 200 mg BID PO 10/03/16 09:00 11/02/16 08:59 10/05/16 08:15 200 MG Levetiracetam (Keppra Tab) 500 mg BID PO 10/03/16 09:00 11/02/16 08:59 10/05/16 08:15 500 MG Ondansetron HCl 4 mg 4 mg Q6H PRN IV 10/03/16 07:00 11/02/16 06:59 10/05/16 17:15 4 MG Promethazine HCl 12.5 mg/Sodium Chloride 50.5 ml @ 204 mls/hr Q6H PRN IV 10/03/16 07:00 11/02/16 06:59 Lorazepam/Syringe (Ativan Inj/ Syringe) 1 ml @ 1 mls/min Q4H PRN IV 10/03/16 08:00 11/02/16 07:59 Levofloxacin (Consult) 1 ea UD PRN N/A 10/03/16 08:15 10/13/16 08:14 Levofloxacin 750 mg 750 mg DAILY@11 PO 10/04/16 11:00 10/10/16 10:59 10/04/16 11:46 750 MG Sodium Chloride (Nss 1000ml) 1,000 ml @ 80 mls/hr [id number] IV 10/03/16 14:45 11/02/16 14:44 10/05/16 17:16 80 MLS/HR Heparin Sodium (Porcine) (Heparin Sq 5000 Unit/0.5ml) 5,000 unit Q8 SQ 10/04/16 22:00 11/03/16 21:59 10/05/16 14:23 5,000 UNIT Physical Exam Date Time Temp Pulse Resp B/P Pulse Ox O2 Delivery O2 Flow Rate FiO2 10/05/16 16:38 73 16 120/67 96 Room Air 10/05/16 16:23 73 16 124/67 96 Room Air 10/05/16 16:08 84 16 133/66 94 Room Air 10/05/16 15:11 36.8 79 20 117/58 92 Room Air 10/05/16 15:01 36.9 70 18 136/71 96 10/05/16 12:00 Room Air 10/05/16 11:29 36.5 73 18 111/70 95 10/05/16 08:00 Room Air 10/05/16 07:28 36.4 66 18 106/65 94 10/05/16 04:00 Room Air 10/05/16 04:00 36.7 68 20 105/71 90 Room Air 10/05/16 00:01 Room Air 10/04/16 23:33 36.8 79 20 106/64 91 Room Air 10/04/16 20:25 36.7 77 18 121/73 93 10/04/16 20:00 Room Air General Appearance: WD/WN, no apparent distress Eyes: bilateral eyes EOMI, bilateral eyes normal inspection ENT: normal ENT inspection, hearing grossly normal, pharynx normal Neck: supple, no adenopathy Respiratory: chest non-tender, lungs clear, normal breath sounds, no respiratory distress Cardiovascular: regular rate, rhythm, no edema, no murmur Abdomen: normal bowel sounds, non tender, soft, no organomegaly Musculoskeletal: normal Skin: normal color, warm/dry, no rash Lymphatic: no adenopathy Laboratory Results Last 24 Hours Test 10/04/16 19:33 10/05/16 06:19 White Blood Count 5.99 K/uL 5.64 K/uL Red Blood Count 4.34 M/uL 4.46 M/uL Hemoglobin 12.8 g/dL 13.2 g/dL Hematocrit 35.2 % 36.5 % Mean Corpuscular Volume 81.1 fL 81.8 fL Mean Corpuscular Hemoglobin 29.5 pg 29.6 pg Mean Corpuscular Hemoglobin Concent 36.4 g/dl 36.2 g/dl Platelet Count 78 K/uL 86 K/uL Mean Platelet Volume 10.1 fL 10.6 fL Neutrophils (%) (Auto) 72.8 % 62.5 % Lymphocytes (%) (Auto) 18.4 % 24.1 % Monocytes (%) (Auto) 5.3 % 9.4 % Eosinophils (%) (Auto) 3.0 % 3.4 % Basophils (%) (Auto) 0.3 % 0.4 % Neutrophils # (Auto) 4.36 K/uL 3.53 K/uL Lymphocytes # (Auto) 1.10 K/uL 1.36 K/uL Monocytes # (Auto) 0.32 K/uL 0.53 K/uL Eosinophils # (Auto) 0.18 K/uL 0.19 K/uL Basophils # (Auto) 0.02 K/uL 0.02 K/uL RDW Standard Deviation 34.9 fL 35.3 fL RDW Coefficient of Variation 11.9 % 12.0 % Immature Granulocyte % (Auto) 0.2 % 0.2 % Immature Granulocyte # (Auto) 0.01 K/uL 0.01 K/uL Immature Platelet Fraction 6.0 % Peripheral Blood Smear Path Consult Vitamin B12 Level 859 pg/mL Folate 14.17 ng/mL Sodium Level 141 mmol/L Potassium Level 4.0 mmol/L Chloride Level 106 mmol/L Carbon Dioxide Level 28 mmol/L Anion Gap 7.0 mmol/L Blood Urea Nitrogen 14 mg/dl Creatinine 1.30 mg/dl Est Creatinine Clear Calc Drug Dose 97.4 ml/min Estimated GFR () 87.9 Estimated GFR (Non- 75.8 BUN/Creatinine Ratio 10.6 Random Glucose 81 mg/dl Calcium Level 8.7 mg/dl Assessment & Plan Assessment & Plan: assessment: 26 y/o male with unprovoked PE last fall and now with recurrent hemoptysis and pleurisy in setting of viral syndrome. Blood work from last admission showed elevated anticardiolipin abs, beta 2 glycoprotein and the repeat testing is pending. His RUDDY has been negative x 2 in the last 1 month so this would make SLE less likely but 1% of cases of SLE are RUDDY negative. would need to be monitored closely as an outpatient. 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 ANCA is pending but vasculitis would be less likely as well give his history and normal appearing bronchoscopy. The biggest issue currently is his PE history and will be resuming anticoagulation soon. I contacted Dr Hoang and discussed case. will await pending labs and arrange outpatient rheumatology follow up in the next few weeks. answered all questions of the patient and his mother. given his pleuritic chest pain is improving without therapy would monitor and hold on prednisone for now. Plan: 1. if pleuritis worsens [facility] prednisone therapy starting at 40mg and tapering 10mg every 3 days until off 2. anticoagulation as per hematology and primary service 3. await pending labs. 4. case discussed with Dr Hoang, and family at bedside 5. I will arrange outpatient Rheumatology follow up in the next few weeks 6. Thank you for the consult and involving me in this patient's care
[2016-10-05] MEDS: PANTOprazole SOD 40 MG TAB PO SCH (21:41)
[2016-10-05] MEDS: OXYCODONE/ACETAMINOPHEN 5-325 TAB PO PRN (21:47)
[2016-10-05 22:16] LABS: HEMATOCRIT 35.2 % (42-52)
[2016-10-06] VITALS (8 sets, daily range): BP systolic 95–123; BP diastolic 56–71; PULSE 71–78; TEMP 36.6–37; O2SAT 94–98
[2016-10-06] MEDS: MoRPHine SULFATE 4 MG/ML 1 ML CARP\\VIAL IV PRN (00:37)
[2016-10-06] MEDS: ONDANSETRON INJ 2 MG/ML 2 ML VIAL IV PRN ×3 (00:44→15:30)
[2016-10-06 02:43] LABS: PARTIAL THROMBOPLASTIN RATIO 2.5
[2016-10-06] MEDS ORDERED: MIDAZOLAM HCL 5 MG/ML 1 ML VIAL IV ONE (02:46)
[2016-10-06] MEDS ORDERED: FENTANYL CITRATE 100 MCG 2 ML CARP IV ONE (02:46)
[2016-10-06] MEDS: SODIUM CHLORIDE 0.9% 1000ML 1,000 ML IV SCH (05:41)
[2016-10-06] MEDS: BENZONATATE 100MG CAP PO PRN ×2 (05:47→07:59)
[2016-10-06] MEDS: PANTOprazole SOD 40 MG TAB PO SCH ×2 (07:57→22:19)
[2016-10-06] MEDS: ACETAMINOPHEN 325 MG TAB PO PRN ×3 (07:57→22:28)
[2016-10-06] MEDS: LEVETIRACETAM 500 MG TAB PO SCH ×2 (07:58→22:18)
[2016-10-06 08:00] LABS: HEMATOCRIT 34.1 % (42-52); MEAN CELL VOLUME 81.4 fL (80-100); MEAN CORPUSCULAR HEMOGLOBIN 29.8 pg (25-34); MEAN CORPUSCULAR HGB CONC 36.7 g/dl (32-36); RED BLOOD COUNT 4.19 M/uL (4.7-6.1); WHITE BLOOD COUNT 8.81 K/uL (4.8-10.8)
[2016-10-06 08:17] LABS: PARTIAL THROMBOPLASTIN RATIO 2.1
[2016-10-06 08:40] LABS: BASO % 0.2 %; BASO ABS # 0.02 K/uL (0-0.2); COMPLETE YES; EOS % 2.3 %; IG% 0.2 %; LYMPH % 13.7 %; LYMPH ABS # 1.21 K/uL (1.2-3.4); MEAN PLATELET VOLUME 10.2 fL (7.4-10.4); MONO % 7.7 %; NEUT % 75.9 %; PLATELET COUNT 81 K/uL (130-400)
[2016-10-06] MEDS: LEVOFLOXACIN 750 MG TAB PO SCH (11:47)
--- NOTE | 2016-10-06 13:49 | Progress Note ---
Internal Med Progress Note Date of Service: Oct 06, 2016. Provider Documentation: SUBJECTIVE: Patient is seen and examined at bedside. States having minimal hemoptysis. Pleuritic chest pain while lying down is improving. Patient concerned about difficulty with ambulation. Denies any weakness in lower extremities. Offers no other complaints. Family at bedside. OBJECTIVE: Vital Signs-as noted below Physical Exam: General Appearance:Moderately built and nourished Head: normocephalic, Atraumatic Eyes: normal inspection, EOMI, PERRLA Neck: supple, Trachea midline Respiratory/Chest: Normal breath sounds, CTA, No accessory muscle use Cardiovascular: S1, S2, No murmur Abdomen/GI:Soft, Non tender, Bowel sounds present Extremities/Musculoskelatal:normal inspection, no edema Neurologic/Psych:AAOX3, grossly no focal neurological deficits Skin: normal color, warm Lab data as noted below. ASSESSMENT & PLAN: Hemoptysis: On Xarelto at home for PE Patient states having hemoptysis since about 8 days S/P bronchoscopy on 10/04/16 Unknown cause of PE per patient S/P Tranexamic acid Xarelto discontinued Monitor H&H, Transfuse PRN if Hb less than 7.0 CTA:Negative for PE Venous Doppler; Negative for DVT Appreciate Pulmonary help ANCA screen:pending TSH, B12, Folate levels:wnl Previous Hypercoagulable work up as below: ? antiphospholipid antibody syndrome RUDDY X2: Negative in past: Less likely SLE Appreciate Hemeoncology input Bronchial washing: Normal bibi; No malignant cells seen on pathology Cultures: pending ESR and CRP is mildly elevated Continue IV heparin to prevent DVT/PE. Hb fairly stable: Plan to start Coumadin today Appreciate Rheumatology input Repeat hypercoagulable work up pending Will plan to treat with prednisone taper if pleuritic pain persists DC IVF ? Atypical pneumonia: Currently afebrile, WBC:wnl Continue Levaquin 3/5 Saturating well on RA Oxygen PRN pleuritic chest pain improving Troponin X2 negative, EKG: no signs of ischemia + FOBT/Hematemesis: Denies any melena or noticing blood in stools On Xarelto at home which is held Appreciate GI input EGD on 09/1716: Gastritis Protonix BID for 2 weeks and then stop Check for Stool for H.Pylori: Plan to treat if positive:pending OK from GI stand point to start anticoagulation:Discussed on 10/05/16 Dizziness: Likely secondary to dehydration: Admits to poor oral intake prior to admission States having intermittent dizziness which he relates to seizure disorder Improved DC IV fluids CT head: No acute pathology Monitor for now Ambulatory/Coordination dysfunction: Denies any weakness CT head: No acute pathology Check MRI brain PT/OT H/O PE: Unknown cause Xarelto held secondary to hemoptysis CTA: Negative for PE Thrombocytopenia: Likely secondary to acute illness Continue to monitor Counts stable H/O seizure disorder: stable Continue home meds H/O drug abuse: Patient denies IV drugs Drug screen positive for Marijuana DVT Px: Started on SQ heparin: Discussed with Code Status: Full code Disposition: Continue to monitor Needs follow up with Rheumatology as outpatient: Needs follow up with Hemeoncology PROCEDURES: CTA: 1. Study is negative for significant pulmonary embolus. 2. Diffuse bilateral patchy parenchymal infiltrates versus atypical pulmonary edema. 3. Moderate mediastinal and hilar adenopathy CT head: No acute intracranial abnormality. CT ABD: Bibasilar parenchymal infiltrates. Otherwise negative abdomen and pelvis Venous Doppler: No evidence of deep venous thrombus within the bilateral lower extremities. Previous Hypercoagulable work up: Homocystine: 9.3 (within normal limits) Anticardiolipin Ig (<=14) Anti-cardiolipin IgM: antibody: 19 (<=12) Anticardiolipin IgA: <11 (WNL) Anti-beta 2 glycoprotein Ig (greater than 20) Anti-beta-2 glycoprotein IgM: 25 (greater than 20) anti-beta-2 glycoprotein IgA: <9 (within normal limits) Prothrombin gene mutation: G2 0210A mutation not detected Antithrombin III activity: 109% (within normal limits) Protein C activity: 131% (within normal limits) Protein S activity: 85% (within normal limits) Factor V Leiden mutation: Not detected LUNG, RIGHT MIDDLE LOBE, BRONCHIAL WASHINGS: 1. ALVEOLAR MACROPHAGES AND NEUTROPHILS. SEE COMMENT. 2. NO MALIGNANT CELLS SEEN. Vital Signs: Date Time Temp Pulse Resp B/P Pulse Ox O2 Delivery O2 Flow Rate FiO2 10/06/16 11:51 36.9 71 16 119/69 94 Room Air 10/06/16 08:00 Room Air 10/06/16 07:23 36.7 74 18 111/69 95 10/06/16 04:23 37.0 78 20 95/56 94 Room Air 10/06/16 04:10 98 Room Air 10/06/16 00:00 98 Room Air 10/05/16 23:13 36.8 74 20 111/68 96 Room Air 10/05/16 20:00 96 Room Air 10/05/16 19:40 36.8 75 20 121/76 96 Room Air 10/05/16 16:38 73 16 120/67 96 Room Air 10/05/16 16:23 73 16 124/67 96 Room Air 10/05/16 16:08 84 16 133/66 94 Room Air 10/05/16 16:00 96 Room Air 10/05/16 15:11 36.8 79 20 117/58 92 Room Air 10/05/16 15:01 36.9 70 18 136/71 96 Lab Results: Results Past 24 Hours Test 10/05/16 19:25 10/05/16 20:57 10/05/16 22:10 10/06/16 01:55 Range/Units Activated Partial Thromboplast Time 42.9 66.2 21.0-31.0 SECONDS Partial Thromboplastin Ratio 1.7 2.5 Hemoglobin 12.7 14.0-18.0 g/dL Hematocrit 35.2 42-52 % Test 10/06/16 07:41 Range/Units White Blood Count 8.81 4.8-10.8 K/uL Red Blood Count 4.19 4.7-6.1 M/uL Hemoglobin 12.5 14.0-18.0 g/dL Hematocrit 34.1 42-52 % Mean Corpuscular Volume 81.4 80-100 fL Mean Corpuscular Hemoglobin 29.8 25-34 pg Mean Corpuscular Hemoglobin Concent 36.7 32-36 g/dl Platelet Count 81 130-400 K/uL Mean Platelet Volume 10.2 7.4-10.4 fL Neutrophils (%) (Auto) 75.9 % Lymphocytes (%) (Auto) 13.7 % Monocytes (%) (Auto) 7.7 % Eosinophils (%) (Auto) 2.3 % Basophils (%) (Auto) 0.2 % Neutrophils # (Auto) 6.68 1.4-6.5 K/uL Lymphocytes # (Auto) 1.21 1.2-3.4 K/uL Monocytes # (Auto) 0.68 0.11-0.59 K/uL Eosinophils # (Auto) 0.20 0-0.5 K/uL Basophils # (Auto) 0.02 0-0.2 K/uL RDW Standard Deviation 35.0 36.4-46.3 fL RDW Coefficient of Variation 12.0 11.5-14.5 % Immature Granulocyte % (Auto) 0.2 % Immature Granulocyte # (Auto) 0.02 0.00-0.02 K/uL Activated Partial Thromboplast Time 55.3 21.0-31.0 SECONDS Partial Thromboplastin Ratio 2.1
[2016-10-06] MEDS: WARFARIN SOD 5 MG TAB PO SCH (16:13)
[2016-10-06 20:31] LABS: HEMATOCRIT 35.6 % (42-52)
[2016-10-07] VITALS (9 sets, daily range): BP systolic 99–124; BP diastolic 62–77; PULSE 68–82; TEMP 36.6–36.9; O2SAT 95–98
[2016-10-07] MEDS: OXYCODONE/ACETAMINOPHEN 5-325 TAB PO PRN ×3 (02:35→23:51)
[2016-10-07 05:59] LABS: HEMATOCRIT 33.2 % (42-52); MEAN CELL VOLUME 79.4 fL (80-100); MEAN CORPUSCULAR HEMOGLOBIN 29.7 pg (25-34); MEAN CORPUSCULAR HGB CONC 37.3 g/dl (32-36); RED BLOOD COUNT 4.18 M/uL (4.7-6.1); WHITE BLOOD COUNT 7.98 K/uL (4.8-10.8)
[2016-10-07 06:00] LABS: BASO % 0.4 %; BASO ABS # 0.03 K/uL (0-0.2); COMPLETE YES; EOS % 3.1 %; IG% 0.3 %; LYMPH % 16.2 %; LYMPH ABS # 1.29 K/uL (1.2-3.4); MEAN PLATELET VOLUME 10.2 fL (7.4-10.4); MONO % 8.1 %; NEUT % 71.9 %; PLATELET COUNT 86 K/uL (130-400)
[2016-10-07 06:09] LABS: INR 1.2 (0.9-1.1); PROTHROMBIN TIME (PATIENT) 12.4 SECONDS (9.0-12.0)
[2016-10-07 07:58] LABS: PARTIAL THROMBOPLASTIN RATIO 1.9
[2016-10-07] MEDS: LEVETIRACETAM 500 MG TAB PO SCH ×2 (08:39→20:26)
[2016-10-07] MEDS: PANTOprazole SOD 40 MG TAB PO SCH ×2 (08:39→20:21)
[2016-10-07] MEDS: BENZONATATE 100MG CAP PO PRN ×2 (08:40→20:20)
--- NOTE | 2016-10-07 11:32 | DIAGNOSTIC IMAGING REPORT ---
MRI OF THE BRAIN WITHOUT AND WITH IV CONTRAST CLINICAL HISTORY: Ambulatory dysfunction: New onset COMPARISON STUDY: CT dated 10/03/2016, MRI 10/01/2015 FINDINGS: diffusion-weighted images demonstrate subacute infarct medial aspect left cerebellum. This measures 12 x 9 mm. Punctate foci of subacute ischemic change are noted within the mid superior left cerebellum transaxial image 6 as well as an additional punctate focus within the left posterior occipital lobe transaxial image 11. These are identified in part or in total on the proton density as well as T2 images consistent with a subacute multifocal infarcts. Several pre-existing foci of increased signal throughout both cerebral hemispheres are similar. Postcontrast images demonstrate a small focus of telangectasia of the right paraventricular region which is unaltered. IMPRESSION: 1. 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 2. Additional foci of subacute ischemic change central left cerebellum and left occipital lobe. 3. Several nonspecific foci of increased signal throughout both cerebral hemispheres unchanged from the prior study 4. No significant postcontrast enhancement Electronically signed by: Sean Melo M.D. 10/07/2016 11:31 AM Dictated Date/Time: 10/07/2016 11:19 AM
[2016-10-07] MEDS: LEVOFLOXACIN 750 MG TAB PO SCH (11:44)
--- NOTE | 2016-10-07 12:44 | Progress Note ---
Internal Med Progress Note Date of Service: Oct 07, 2016. Provider Documentation: SUBJECTIVE: Patient is seen and examined at bedside. States having only scant hemoptysis this morning. Dizziness and ambulation has much improved. Denies any chest pain , SOB. Offers no other complaints. Family at bedside. OBJECTIVE: Vital Signs-as noted below Physical Exam: General Appearance:Moderately built and nourished Head: normocephalic, Atraumatic Eyes: normal inspection, EOMI, PERRLA Neck: supple, Trachea midline Respiratory/Chest: Normal breath sounds, CTA, No accessory muscle use Cardiovascular: S1, S2, No murmur Abdomen/GI:Soft, Non tender, Bowel sounds present Extremities/Musculoskelatal:normal inspection, no edema Neurologic/Psych:AAOX3, grossly no focal neurological deficits Skin: normal color, warm Lab data as noted below. ASSESSMENT & PLAN: Hemoptysis: On Xarelto at home for PE Patient states having hemoptysis since about 8 days S/P bronchoscopy on 10/04/16 Unknown cause of PE per patient S/P Tranexamic acid Xarelto discontinued Monitor H&H, Transfuse PRN if Hb less than 7.0 CTA:Negative for PE Venous Doppler; Negative for DVT Appreciate Pulmonary help ANCA screen:pending TSH, B12, Folate levels:wnl Previous Hypercoagulable work up as below: ? antiphospholipid antibody syndrome RUDDY X2: Negative in past: Less likely SLE Appreciate Hemeoncology input Bronchial washing: Normal bibi; No malignant cells seen on pathology Cultures: pending ESR and CRP is mildly elevated Continue IV heparin and Coumadin Appreciate Rheumatology input Repeat hypercoagulable work up pending Plan to treat with prednisone taper if pleuritic pain persists Subacute infarct medial left cerebellum Start on aspirin, lipitor Venous Doppler: Negative for DVT Check lipid panel, MRA, ECHO Consult Neurology PT/OT MRI Head: as below ? Atypical pneumonia: Currently afebrile, WBC:wnl Continue Levaquin 4/5 Saturating well on RA Oxygen PRN pleuritic chest pain improving Troponin X2 negative, EKG: no signs of ischemia + FOBT/Hematemesis: Denies any melena or noticing blood in stools On Xarelto at home which is held Appreciate GI input EGD on 09/1716: Gastritis Protonix BID for 2 weeks and then stop Check for Stool for H.Pylori: Plan to treat if positive:pending OK from GI stand point to start anticoagulation:Discussed on 10/05/16 Thrombocytopenia: Likely secondary to acute illness Continue to monitor Counts stable H/O seizure disorder: stable Continue home meds H/O drug abuse: Patient denies IV drugs Drug screen positive for Marijuana DVT Px: On IV heparin, Coumadin Code Status: Full code Disposition: Continue to monitor Needs follow up with Rheumatology as outpatient: Needs follow up with Hemeoncology PROCEDURES: CTA: 1. Study is negative for significant pulmonary embolus. 2. Diffuse bilateral patchy parenchymal infiltrates versus atypical pulmonary edema. 3. Moderate mediastinal and hilar adenopathy CT head: No acute intracranial abnormality. CT ABD: Bibasilar parenchymal infiltrates. Otherwise negative abdomen and pelvis Venous Doppler: No evidence of deep venous thrombus within the bilateral lower extremities. Previous Hypercoagulable work up: Homocystine: 9.3 (within normal limits) Anticardiolipin Ig (<=14) Anti-cardiolipin IgM: antibody: 19 (<=12) Anticardiolipin IgA: <11 (WNL) Anti-beta 2 glycoprotein Ig (greater than 20) Anti-beta-2 glycoprotein IgM: 25 (greater than 20) anti-beta-2 glycoprotein IgA: <9 (within normal limits) Prothrombin gene mutation: G2 0210A mutation not detected Antithrombin III activity: 109% (within normal limits) Protein C activity: 131% (within normal limits) Protein S activity: 85% (within normal limits) Factor V Leiden mutation: Not detected LUNG, RIGHT MIDDLE LOBE, BRONCHIAL WASHINGS: 1. ALVEOLAR MACROPHAGES AND NEUTROPHILS. SEE COMMENT. 2. NO MALIGNANT CELLS SEEN. MRI Brain: 1. 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 2. Additional foci of subacute ischemic change central left cerebellum and left occipital lobe. 3. Several nonspecific foci of increased signal throughout both cerebral hemispheres unchanged from the prior study 4. No significant postcontrast enhancement Vital Signs: Date Time Temp Pulse Resp B/P Pulse Ox O2 Delivery O2 Flow Rate FiO2 10/07/16 12:29 78 16 106/67 95 Room Air 10/07/16 08:09 Room Air 10/07/16 07:22 36.6 72 16 99/62 97 Room Air 10/07/16 04:00 98 Room Air 10/07/16 03:20 36.9 68 16 106/64 95 Room Air 10/07/16 00:50 36.7 75 18 112/68 98 10/07/16 00:15 98 Room Air 10/06/16 20:10 98 Room Air 10/06/16 19:05 36.6 77 18 123/71 98 10/06/16 15:13 36.6 71 18 104/67 97 Lab Results: Results Past 24 Hours Test 10/06/16 20:21 10/07/16 05:31 Range/Units Hemoglobin 13.1 12.4 14.0-18.0 g/dL Hematocrit 35.6 33.2 42-52 % White Blood Count 7.98 4.8-10.8 K/uL Red Blood Count 4.18 4.7-6.1 M/uL Mean Corpuscular Volume 79.4 80-100 fL Mean Corpuscular Hemoglobin 29.7 25-34 pg Mean Corpuscular Hemoglobin Concent 37.3 32-36 g/dl Platelet Count 86 130-400 K/uL Mean Platelet Volume 10.2 7.4-10.4 fL Neutrophils (%) (Auto) 71.9 % Lymphocytes (%) (Auto) 16.2 % Monocytes (%) (Auto) 8.1 % Eosinophils (%) (Auto) 3.1 % Basophils (%) (Auto) 0.4 % Neutrophils # (Auto) 5.74 1.4-6.5 K/uL Lymphocytes # (Auto) 1.29 1.2-3.4 K/uL Monocytes # (Auto) 0.65 0.11-0.59 K/uL Eosinophils # (Auto) 0.25 0-0.5 K/uL Basophils # (Auto) 0.03 0-0.2 K/uL RDW Standard Deviation 34.6 36.4-46.3 fL RDW Coefficient of Variation 12.0 11.5-14.5 % Immature Granulocyte % (Auto) 0.3 % Immature Granulocyte # (Auto) 0.02 0.00-0.02 K/uL Prothrombin Time 12.4 9.0-12.0 SECONDS Prothromb Time International Ratio 1.2 0.9-1.1 Activated Partial Thromboplast Time 49.5 21.0-31.0 SECONDS Partial Thromboplastin Ratio 1.9
[2016-10-07] MEDS ORDERED: ASPIRIN 81 MG ECTAB PO ONE (12:45)
[2016-10-07] MEDS ORDERED: ATORVASTATIN 40 MG TAB PO ONE (12:45)
--- NOTE | 2016-10-07 15:00 | CONSULTATION REPORT ---
DATE OF CONSULTATION: 10/07/2016 HISTORY: Jose Antonio is 26 years old, he is known to me from about a year and a half ago when he presented with seizures and has been on variable anticonvulsants since that time. We started him on Keppra and he developed some irritability and gradually we have been swinging him over to Lamictal and the plan was to gradually taper him off the Keppra, but this has not occurred. He is now in the hospital since Saturday for evaluation of vertigo, hemoptysis and hematemesis. Primary care physician is Dr. Boyd. His past medical history does reveal an unprovoked pulmonary embolism, on Xarelto, but the Xarelto has been held now because of hemoptysis and hematemesis He has been on heparin and ccoumadin was started several days ago in light of his underlying antiphospholipid antibody syndrome. He apparently developed acute headache and vertigo on the night prior to admission. At that time, he was probably still taking the Xarelto but he is not certain if he ws able to keep the doses down. For the past week or so, he has had a nonspecific viral upper respiratory tract type syndrome with sinus congestion, drainage, productive cough, yellow sputum and supportive management was recommended. He complained of some left leg pain and pleuritic substernal pain, was seen in the ER. Left lower extremity ultrasound was negative for DVT. Chest x-ray was fine. Platelet count was noted to be 90. He was discharged home. After admission, he has been improving slowly. He initially had a headache and some vertigo that has cleared and now he only has some gait dystaxia. Today because of persistence of his with dystaxia and clumsiness of gait primarily with a tendency to drift to the left, he had an MRI scan that shows evidence for subacute probably embolic infarcts involving the left cerebellum. There are some other areas of signal abnormality as well. He has been evaluated by Pulmonary, Gastroenterology, Rheumatology within the past few days and I refer the reader to those consultations. He is felt to have an antiphospholipid antibody syndrome and for details of this and its potential relationship to an underlying lupus like disorder I refer to Dr Rashid's note Other issues are as outlined in Dr. Hoang's note of today and include hemoptysis which is cooling down and is at the point now where he can be anticoagulated, a question whether he has an atypical pneumonia, he has had hematemesis, but there has been no evidence for melena or blood in the stools and GI has found only gastritis and recommending Protonix. Clearly, the vertigo and dystaxia not were not due to a viral syndrome, but rather an infarction, probably embolic, possibly secondary to his antiphospholipid antibody syndrome but other conditions have not been excluded. FAMILY HISTORY: Noncontributory. SOCIAL HISTORY: Reveals him to be a student. He does consume ethanol and I believe smokes marijuana occasionally. He is single. REVIEW OF SYSTEMS: With the exception of the history of present illness and past medical history, it is pretty unremarkable. He does not have any chronic weight loss. He does not have a lot of rheumatologic complaints and I would refer the reader to Dr. Weber's note in this regard. He has the cardiopulmonary issues with the hemoptysis and pleuritic pain, which brought him into the hospital and he has had the history of pulmonary embolism probably related to primary coagulopathy. He has gastritis, but otherwise the GI system is free of new complaints. He does no genitourinary issues, significant musculoskeletal issues. Neurologically all he has had are the seizures which have been well controlled and now the vertigo and dystaxia. He does not have livido reticularis which might raise the issue of a Sneddon's syndrome On my examination today, his blood pressure is 112/68, pulse is 75 and regular, respirations are 16, his pulse oximetry is 98%. He is alert, cooperative, oriented in 3 spheres. I do not see any nystagmus in any gaze directions. Visual valdes are full. Ocular fundi are poorly seen. Facial motility and strength is normal. Facial sensation is normal. Speech is clear. Tongue protrudes in the midline. There is no real cerebellar dysmetria on [id number] and point to point testing othere than some minor clumsiness of the left hand. There is no drift or pronation sign. His lower extremity movements are normal. Heel to oakes testing is well done. Reflexes are 1+ symmetrical. Toes are downgoing. No Gregg's signs are seen. Strength testing is excellent. Sensation is intact to vibration light touch and temperature. Gait testing observed with the physical therapist savannah was revealing of some minor dystaxic tendencies to the left I reviewed the MRI images and the report. There is clearly evidence for probable embolic infarctions involving the left cerebellum. This could possibly be related to an intracranial vasculitis, but I have my doubts. They may be of cardiac origin, possibly reflective of a pfo, or could be artery to artery in origin. A cough induced dissection perhaps of the vertebral artery needs also to be considered in light of the preceding uri with cough the was present before the onset of the acute vertigo and gait issues on several days ago It appears that these events occurred at a time when he was taking Xarelto so its efficacy in preventing vascular events was inadequate I am going to order an MRA of the cervical and cerebral vessels and I am going to get cardiology involved and probably do a transesophageal echo to make sure he does not have a PFO on top of all his other issues. I will check back with him tomorrow and I concur at this point starting the Coumadin and the question in the future will be whether an aspirin needs to be added to this eventually. BARBRA
--- NOTE | 2016-10-07 15:15 | ECHOCARDIOGRAM REPORT ---
*NOTICE TO RECEIVING CONSTITUTION PARTY AGENCY This information is strictly Confidential and protected under [place] law. [place] law prohibits you from making any further disclosure of this information unless further disclosure is expressly permitted by the written consent of the person to whom it pertains or is authorized by law. A general authorization for the release of medical or other information is not sufficient for this purpose. Hospital accepts no responsibility if the information is made available to any other person, INCLUDING THE PATIENT. Interpretation Summary * Conclusions -- * Mass seen on anterior mitral leaflet suggestive of vegetation. * The vegetation measures 2.3 cm across. * There is trace mitral regurgitation. Procedure Details * A complete two-dimensional transthoracic echocardiogram was performed (2D, M-mode, Doppler and color flow Doppler). Left Ventricle * The left ventricle is normal in size. * There is normal left ventricular wall thickness. * Ejection Fraction = 65-70%. * Left ventricular systolic function is normal. Right Ventricle * The right ventricle is normal in size and function. * There is normal right ventricular wall thickness. * The right ventricular systolic function is normal. Atria * The left atrial size is normal. * Right atrial size is normal. * The interatrial septum is intact with no evidence for an atrial septal defect. Mitral Valve * The mitral valve is normal in structure and function. * Mass seen on anterior mitral leaflet suggestive of vegetation. * There is no mitral valve stenosis. * There is trace mitral regurgitation. Tricuspid Valve * The tricuspid valve is normal in structure and function. * There is trace tricuspid regurgitation. Aortic Valve * The aortic valve is normal in structure and function. * No aortic regurgitation is present. Pulmonic Valve * The pulmonic valve is normal in structure and function. * There is no pulmonic valvular regurgitation. Great Vessels * The aortic root is normal size. * No obvious dissection could be visualized. * The pulmonary artery is normal size. Pericardium/Pleural * There is no pericardial effusion. MMode 2D Measurements and Calculations IVSd 1.3 cm IVSs 1.8 cm LVIDd 5.0 cm LVIDs 3.0 cm LVPWd 1.1 cm LVPWs 1.9 cm IVS/LVPW 1.2 FS 39.7 % EDV(Teich) 118.2 ml ESV(Teich) 35.5 ml EF(Teich) 70.0 % EDV(cubed) 124.9 ml ESV(cubed) 27.5 ml EF(cubed) 78.0 % % IVS thick 36.6 % % LVPW thick 65.3 % LV mass(C)d 244.1 grams LV mass(C)dI 116.6 grams/m\S\2 LV mass(C)s 230.4 grams LV mass(C)sI 110.1 grams/m\S\2 SV(Teich) 82.7 ml SI(Teich) 39.5 ml/m\S\2 SV(cubed) 97.5 ml SI(cubed) 46.6 ml/m\S\2 ACS 1.8 cm LA dimension 4.1 cm asc Aorta Diam 2.4 cm LVOT diam 2.1 cm LVOT area 3.5 cm\S\2 LVAd ap4 31.5 cm\S\2 LVLd ap4 7.6 cm EDV(MOD-sp4) 109.6 ml EDV(sp4-el) 110.2 ml LVAs ap4 14.2 cm\S\2 LVLs ap4 5.2 cm ESV(MOD-sp4) 32.7 ml ESV(sp4-el) 32.9 ml EF(MOD-sp4) 70.2 % EF(sp4-el) 70.2 % LVAd ap2 31.8 cm\S\2 LVLd ap2 8.1 cm EDV(MOD-sp2) 103.0 ml EDV(sp2-el) 106.5 ml LVAs ap2 14.4 cm\S\2 LVLs ap2 5.5 cm ESV(MOD-sp2) 31.6 ml ESV(sp2-el) 32.1 ml EF(MOD-sp2) 69.3 % EF(sp2-el) 69.8 % LVLd %diff 5.6 % EDV(MOD-bp) 110.1 ml LVLs %diff 4.6 % ESV(MOD-bp) 32.2 ml EF(MOD-bp) 70.8 % SV(MOD-sp4) 76.9 ml SI(MOD-sp4) 36.8 ml/m\S\2 SV(MOD-sp2) 71.4 ml SI(MOD-sp2) 34.1 ml/m\S\2 SV(MOD-bp) 77.9 ml SI(MOD-bp) 37.2 ml/m\S\2 SV(sp4-el) 77.3 ml SI(sp4-el) 36.9 ml/m\S\2 SV(sp2-el) 74.4 ml SI(sp2-el) 35.5 ml/m\S\2 Doppler Measurements and Calculations MV E max lacy 110.0 cm/sec MV A max lacy 103.5 cm/sec MV E/A 1.1 MV dec time 0.22 sec Ao V2 max 124.0 cm/sec Ao max PG 6.2 mmHg Ao max PG (full) 0.16 mmHg POLLY(V,A) 3.4 cm\S\2 POLLY(V,D) 3.4 cm\S\2 LV V1 max PG 6.0 mmHg LV V1 max 122.4 cm/sec MR max lacy 485.6 cm/sec MR max PG 94.4 mmHg MR mean lacy 379.9 cm/sec MR mean PG 64.7 mmHg MR VTI 163.6 cm PA V2 max 78.7 cm/sec PA max PG 2.5 mmHg PI end-d lacy 117.7 cm/sec
--- NOTE | 2016-10-07 15:32 | CARDIOLOGY CONSULTATION ---
DATE OF CONSULTATION: 10/07/2016 REFERRING PHYSICIAN: [facility] mayra. REASON FOR CONSULTATION: Embolic stroke. HISTORY OF PRESENT ILLNESS: The patient is a 26-year-old male with a history of a seizure disorder and pulmonary emboli, on Xarelto. He is felt to have antiphospholipid syndrome. The patient was started on Xarelto in April 2016 when he had the event. He has had a recent complex medical history. Approximately a week ago, he was not feeling well with sinus congestion, a productive cough and was felt to have upper respiratory tract infection. He was seen at [facility] who recommended supportive care. He then was evaluated in the Emergency Department a few days ago for some left leg and pleuritic discomfort. At that time he had an ultrasound of the leg that was negative and eventually he was discharged from the Emergency Department. He then presented with hemoptysis and was admitted to the hospital. He has had an extensive workup by the pulmonary service including a bronchoscopy which was unremarkable. He has also been seen by rheumatology for collagen vascular disease. The patient on admission was complaining of headaches and dizziness. Eventually, a CT of the brain was obtained that shows a subacute infarct. As part of the workup for stroke, he then had an echocardiogram which reveals a possible vegetation on the mitral valve. This vegetation measures 2.3 cm across and is of the size that is more likely to cause emboli, such as to the brain. It is interesting in that the patient has not been febrile and his white blood cell count has not been elevated. He has not had blood cultures this admission. He was started on Levaquin. I am uncertain as to whether he was given antibiotics at the [facility], which may have masked some of his symptoms for endocarditis. He has no prior history of heart disease. He denies weight loss or weight gain. He has had no evidence of embolic events to his digits. No findings of splenomegaly. ALLERGIES: PENICILLIN AND TRAMADOL. PAST MEDICAL HISTORY: As outlined in the history of chief complaint. In addition, the patient has a known seizure disorder. No prior history of heart disease, heart murmurs, rheumatic fever, previous strokes or diabetes. SOCIAL HISTORY: The patient is a cigarette smoker. He lives with his family. FAMILY MEDICAL HISTORY: Noncontributory. REVIEW OF SYSTEMS: A 10-point review of systems is negative except for the history of chief complaint. PHYSICAL EXAMINATION: GENERAL: He is alert and oriented. VITAL SIGNS: Blood pressure 120/70, pulse is regular at 58. He is afebrile. HEENT: He is normocephalic. Pupils are equal and reactive to light. Conjunctivae have no evidence of splinter hemorrhages or findings that would suggest emboli. NECK: The neck veins are flat. Carotids have good upstrokes bilaterally without bruits. Thyroid is nonpalpable. RESPIRATORY: Breath sounds equal bilaterally and clear to auscultation. CARDIOVASCULAR: Heart has a regular rhythm. There are no systolic murmurs, no cardiac rubs. GASTROINTESTINAL: Abdomen is soft, nontender without organomegaly. There is no splenomegaly. EXTREMITIES: Free of evidence of emboli, digital clubbing, or cyanosis. NEUROLOGIC: Grossly intact. SKIN: Warm to touch. LYMPH NODES: Negative to palpation. IMPRESSION: 1. 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 2. History of seizure disorder. 3. Pulmonary emboli in April 2016 and antiphospholipid antibody syndrome. RECOMMENDATIONS: I discussed the case with the infectious disease physician who is recommending a change in antibiotics, the vancomycin and ceftriaxone. If the patient has a second embolic event, then we have to consider the possibility that he will require surgery to remove the vegetation. Hopefully, it will not come to that. Taking the liberty of obtaining blood cultures at this time. We will have further recommendations following the above.
[2016-10-07] MEDS: CEFTRIAXONE SOD INJ 2,000 MG in DEXTROSE 5% 50ML 50 ML IV SCH (15:47)
[2016-10-07] MEDS ORDERED: VANCOMYCIN INJ 2,450 MG in SODIUM CHLORIDE 0.9% 500ML 500 ML IV ONE (16:00)
[2016-10-07] MEDS: WARFARIN SOD 5 MG TAB PO SCH (16:03)
[2016-10-07] MEDS ORDERED: VANCOMYCIN CONSULT ACTIVE PRN (16:15)
[2016-10-07] MEDS: ONDANSETRON INJ 2 MG/ML 2 ML VIAL IV PRN (18:02)
[2016-10-07] MEDS: ACETAMINOPHEN 325 MG TAB PO PRN (18:02)
--- NOTE | 2016-10-07 20:43 | Pharmacy Progress Note ---
Pharmacy Antibiotic Consult Date of Service: Oct 07, 2016. Pharmacy Dosing Scope Pharmacy is consulted to initiate Vancomycin IV dosing therapy for endocarditis , order appropriate labs and adjust drug dose/frequency. Subjective The patient is a 26 year old male admitted on Oct 03, 2016 at 06:57. Objective Height (Feet): 5 Height (Inches): 7 Weight (Kilograms): 98.600 Lab Results (24hrs): Laboratory Tests Test 10/07/16 05:31 White Blood Count 7.98 K/uL Red Blood Count 4.18 M/uL Hemoglobin 12.4 g/dL Hematocrit 33.2 % Mean Corpuscular Volume 79.4 fL Mean Corpuscular Hemoglobin 29.7 pg Mean Corpuscular Hemoglobin Concent 37.3 g/dl Platelet Count 86 K/uL Mean Platelet Volume 10.2 fL Neutrophils (%) (Auto) 71.9 % Lymphocytes (%) (Auto) 16.2 % Monocytes (%) (Auto) 8.1 % Eosinophils (%) (Auto) 3.1 % Basophils (%) (Auto) 0.4 % Neutrophils # (Auto) 5.74 K/uL Lymphocytes # (Auto) 1.29 K/uL Monocytes # (Auto) 0.65 K/uL Eosinophils # (Auto) 0.25 K/uL Basophils # (Auto) 0.03 K/uL Micro Results: Item Value Date Time Blood Culture Received 10/07/16 1441 Blood Pending Blood Culture Received 10/07/16 1433 Blood Pending Fungal Smear - Final Results 10/04/16 1135 Bronchial Washings Right Middle Lobe No yeast or fungus Acid Fast Stain - Final Results Pending 10/04/16 1135 Bronchial Washings Right Middle Lobe Gram Stain - Final Complete 10/04/16 1135 Bronchial Washings Right Middle Lobe Light normal bibi Recent Pertinent Medications Item Value Date Time Ceftriaxone 70 ml @ 100 mls/hr 10/07/16 1500 Sodium 2000 mg/ Q24H/IV 10/07/16 1547 Dextrose Levofloxacin 750 mg 10/03/16 0630 (Levaquin / D5W) TODAY@0630/IV 10/03/16 0644 Levofloxacin 750 mg 10/04/16 1100 (Levaquin Tab) DAILY@11/PO 10/07/16 1144 Assessment & Plan Pharmacy has been consulted to dose and monitor Vancomycin for endocarditis in a patient who failed Levaquin therapy. Loading dose: Vancomycin 2450 mg (~25mg/kg) IV X 1 dose then: Vancomycin 1600 mg (~16mg/kg) IV every 12 hours. * Estimated P'kinetic levels: ke= 0.0852/hr, t1/2= 8 hrs * Goal trough level estimate: between 15 - 20 mcg/mL. * Trough level has been ordered for: ~30 minutes before the 4th dose. Pharmacy will continue to follow and will adjust dose/frequency as necessary. Thank you
[2016-10-08] VITALS (12 sets, daily range): BP systolic 116–159; BP diastolic 42–90; PULSE 69–92; TEMP 36.4–36.7; O2SAT 93–98
[2016-10-08] MEDS ORDERED: VANCOMYCIN INJ 1,600 MG in SODIUM CHLORIDE 0.9% 500ML 500 ML IV SCH (04:00)
[2016-10-08 05:37] LABS: HEMATOCRIT 33.3 % (42-52); MEAN CELL VOLUME 81.6 fL (80-100); MEAN CORPUSCULAR HEMOGLOBIN 29.9 pg (25-34); MEAN CORPUSCULAR HGB CONC 36.6 g/dl (32-36); RED BLOOD COUNT 4.08 M/uL (4.7-6.1); WHITE BLOOD COUNT 6.67 K/uL (4.8-10.8)
[2016-10-08 05:40] LABS: BASO % 0.4 %; BASO ABS # 0.03 K/uL (0-0.2); COMPLETE YES; EOS % 5.1 %; IG% 0.3 %; LYMPH % 22.5 %; MEAN PLATELET VOLUME 10.8 fL (7.4-10.4); MONO % 9.7 %; PLATELET COUNT 87 K/uL (130-400)
[2016-10-08 05:59] LABS: INR 1.2 (0.9-1.1); PARTIAL THROMBOPLASTIN RATIO 2.5; PROTHROMBIN TIME (PATIENT) 12.8 SECONDS (9.0-12.0)
[2016-10-08 06:07] LABS: CREATININE 1.3 mg/dl (0.60-1.40)
[2016-10-08 06:23] LABS: CHOLESTEROL/HDL RATIO 4.6
--- NOTE | 2016-10-08 07:03 | DIAGNOSTIC IMAGING REPORT ---
ULTRASOUND OF THE CAROTID ARTERIES CLINICAL HISTORY: Stroke. COMPARISON STUDY: No priors. TECHNIQUE: Real-time, grayscale, and color Doppler sonography of the carotid arteries is performed. Images are reviewed in the transverse and longitudinal planes. FINDINGS: Blood pressure in the right arm measures 146/73 and blood pressure in the left arm measures 143/78. The carotid arteries are patent bilaterally and demonstrate antegrade flow. There is no significant atherosclerotic plaque identified. Normal doppler arterial waveforms are seen throughout. Velocity measurements are listed below. Common carotid peak systolic velocity (cm/sec): RIGHT: 106 LEFT: 75 ICA proximal peak systolic velocity (cm/sec): RIGHT: 65 LEFT: 70 ICA mid peak systolic velocity (cm/sec): RIGHT: 81 LEFT: 104 ICA distal peak systolic velocity (cm/sec): RIGHT: 83 LEFT: 77 ICA/CC peak systolic ratio: RIGHT: 0.8 LEFT: 1.4 Antegrade flow was shown in the vertebral arteries. The external carotid arteries are patent. IMPRESSION: 1. There is no sonographic evidence of hemodynamically significant stenosis in the right or left carotid arterial system. 2. Antegrade flow is shown in the vertebral arteries. Electronically signed by: Adolph Duarte M.D. 10/08/2016 7:02 AM Dictated Date/Time: 10/08/2016 7:01 AM
--- NOTE | 2016-10-08 08:14 | Progress Note ---
Internal Med Progress Note Date of Service: Oct 08, 2016. Provider Documentation: SUBJECTIVE: Patient is seen and examined at bedside. Doing well. Has scant hemoptysis but denies any other source of bleeding. Denies any chest pain, SOB. Offers no other complaints. Family at bedside. Planned for SANDIE today OBJECTIVE: Vital Signs-as noted below Physical Exam: General Appearance:Moderately built and nourished Head: normocephalic, Atraumatic Eyes: normal inspection, EOMI, PERRLA Neck: supple, Trachea midline Respiratory/Chest: Normal breath sounds, CTA, No accessory muscle use Cardiovascular: S1, S2, No murmur Abdomen/GI:Soft, Non tender, Bowel sounds present Extremities/Musculoskelatal:normal inspection, no edema Neurologic/Psych:AAOX3, grossly no focal neurological deficits Skin: normal color, warm Lab data as noted below. ASSESSMENT & PLAN: Hemoptysis: On Xarelto at home for PE Patient states having hemoptysis since about 8 days S/P bronchoscopy on 10/04/16 Unknown cause of PE per patient S/P Tranexamic acid and Xarelto discontinued Monitor H&H, Transfuse PRN if Hb less than 7.0 CTA:Negative for PE Venous Doppler; Negative for DVT Appreciate Pulmonary help ANCA screen:pending TSH, B12, Folate levels:wnl Previous Hypercoagulable work up as below: ? antiphospholipid antibody syndrome RUDDY X2: Negative in past: Less likely SLE Appreciate Hemeoncology input Bronchial washing: Normal bibi; No malignant cells seen on pathology Cultures: pending ESR and CRP is mildly elevated Continue IV heparin and Coumadin Appreciate Rheumatology input Repeat hypercoagulable work up pending Plan to treat with prednisone taper if pleuritic pain persists Subacute infarct medial left cerebellum Likely embolic origin from mitral valve vegetation Started on aspirin Venous Doppler: Negative for DVT Lipid panel:wnl ECHO:anterior mitral leaflet suggestive of vegetation Carotid Doppler:No significant stenosis Appreciate Neurology input PT/OT MRI Head: as below MRA:pending 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 Atypical pneumonia: less likely afebrile, WBC:wnl S/P Levaquin for 4 days Saturating well on RA Oxygen PRN pleuritic chest pain improving Troponin X2 negative, EKG: no signs of ischemia + FOBT/Hematemesis: Denies any melena or noticing blood in stools On Xarelto at home which is held Appreciate GI input EGD on 09/1716: Gastritis Protonix BID for 2 weeks and then stop Stool for H.Pylori: Plan to treat if positive:pending OK from GI stand point to start anticoagulation:Discussed on 10/05/16 Thrombocytopenia: Likely secondary to acute illness Continue to monitor Counts stable H/O seizure disorder: stable Continue home meds H/O drug abuse: Patient denies IV drugs Drug screen positive for Marijuana DVT Px: On IV heparin, Coumadin Code Status: Full code Disposition: Continue to monitor Needs follow up with Rheumatology as outpatient: Needs follow up with Hemeoncology PROCEDURES: CTA: 1. Study is negative for significant pulmonary embolus. 2. Diffuse bilateral patchy parenchymal infiltrates versus atypical pulmonary edema. 3. Moderate mediastinal and hilar adenopathy CT head: No acute intracranial abnormality. CT ABD: Bibasilar parenchymal infiltrates. Otherwise negative abdomen and pelvis Venous Doppler: No evidence of deep venous thrombus within the bilateral lower extremities. Previous Hypercoagulable work up: Homocystine: 9.3 (within normal limits) Anticardiolipin Ig (<=14) Anti-cardiolipin IgM: antibody: 19 (<=12) Anticardiolipin IgA: <11 (WNL) Anti-beta 2 glycoprotein Ig (greater than 20) Anti-beta-2 glycoprotein IgM: 25 (greater than 20) anti-beta-2 glycoprotein IgA: <9 (within normal limits) Prothrombin gene mutation: G2 [id number] mutation not detected Antithrombin III activity: 109% (within normal limits) Protein C activity: 131% (within normal limits) Protein S activity: 85% (within normal limits) Factor V Leiden mutation: Not detected LUNG, RIGHT MIDDLE LOBE, BRONCHIAL WASHINGS: 1. ALVEOLAR MACROPHAGES AND NEUTROPHILS. SEE COMMENT. 2. NO MALIGNANT CELLS SEEN. MRI Brain: 1. 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 2. Additional foci of subacute ischemic change central left cerebellum and left occipital lobe. 3. Several nonspecific foci of increased signal throughout both cerebral hemispheres unchanged from the prior study 4. No significant postcontrast enhancement Carotid Doppler: 1. There is no sonographic evidence of hemodynamically significant stenosis in the right or left carotid arterial system. 2. Antegrade flow is shown in the vertebral arteries. ECHO: * Mass seen on anterior mitral leaflet suggestive of vegetation. * The vegetation measures 2.3 cm across. * There is trace mitral regurgitation. Vital Signs: Date Time Temp Pulse Resp B/P Pulse Ox O2 Delivery O2 Flow Rate FiO2 10/08/16 07:39 36.6 77 18 140/71 96 Room Air 10/08/16 04:00 Room Air 10/08/16 04:00 36.6 70 15 117/60 97 Room Air 10/08/16 00:00 36.7 75 18 118/63 96 Room Air 10/08/16 00:00 Room Air 10/07/16 20:00 Room Air 10/07/16 19:31 36.7 81 22 113/62 96 Room Air 10/07/16 16:17 36.7 82 18 97 10/07/16 16:00 Room Air 10/07/16 15:50 Room Air 10/07/16 15:11 36.7 82 18 124/77 97 10/07/16 12:29 78 16 106/67 95 Room Air 10/07/16 12:00 Room Air Lab Results: Results Past 24 Hours Test 10/08/16 05:11 Range/Units White Blood Count 6.67 4.8-10.8 K/uL Red Blood Count 4.08 4.7-6.1 M/uL Hemoglobin 12.2 14.0-18.0 g/dL Hematocrit 33.3 42-52 % Mean Corpuscular Volume 81.6 80-100 fL Mean Corpuscular Hemoglobin 29.9 25-34 pg Mean Corpuscular Hemoglobin Concent 36.6 32-36 g/dl Platelet Count 87 130-400 K/uL Mean Platelet Volume 10.8 7.4-10.4 fL Neutrophils (%) (Auto) 62.0 % Lymphocytes (%) (Auto) 22.5 % Monocytes (%) (Auto) 9.7 % Eosinophils (%) (Auto) 5.1 % Basophils (%) (Auto) 0.4 % Neutrophils # (Auto) 4.13 1.4-6.5 K/uL Lymphocytes # (Auto) 1.50 1.2-3.4 K/uL Monocytes # (Auto) 0.65 0.11-0.59 K/uL Eosinophils # (Auto) 0.34 0-0.5 K/uL Basophils # (Auto) 0.03 0-0.2 K/uL RDW Standard Deviation 35.9 36.4-46.3 fL RDW Coefficient of Variation 12.3 11.5-14.5 % Immature Granulocyte % (Auto) 0.3 % Immature Granulocyte # (Auto) 0.02 0.00-0.02 K/uL Prothrombin Time 12.8 9.0-12.0 SECONDS Prothromb Time International Ratio 1.2 0.9-1.1 Activated Partial Thromboplast Time 66.1 21.0-31.0 SECONDS Partial Thromboplastin Ratio 2.5 Creatinine 1.30 0.60-1.40 mg/dl Est Creatinine Clear Calc Drug Dose 97.2 ml/min Estimated GFR () 87.9 Estimated GFR (Non- 75.8 Triglycerides Level 98 0-150 mg/dl Cholesterol Level 156 0-200 mg/dl HDL Cholesterol 34 mg/dl LDL Cholesterol, Calculated 102 mg/dl VLDL Cholesterol, Calculated 20 mg/dl Cholesterol/HDL Ratio 4.6 Microbiology Results 10/07/16 Blood Culture, Received Pending 10/07/16 Blood Culture, Received Pending
[2016-10-08] MEDS: ATORVASTATIN 40 MG TAB PO SCH (09:37)
[2016-10-08] MEDS: LEVETIRACETAM 500 MG TAB PO SCH ×2 (09:37→21:04)
[2016-10-08] MEDS: PANTOprazole SOD 40 MG TAB PO SCH ×2 (09:37→21:06)
[2016-10-08] MEDS: ASPIRIN 81 MG ECTAB PO SCH (09:37)
--- NOTE | 2016-10-08 09:49 | PROGRESS NOTE ---
DATE: 10/08/2016 HISTORY OF PRESENT ILLNESS: The patient is very comfortable this morning. I reviewed cardiology notes, notes from Dr. Lepe, and the rheumatology notes from Dr. Weber. It appears the patient has vegetation on the mitral valve hence the embolic strokes with relatively well preserved left ventricular function with normal right-sided structures as well. The mass is suggestive of vegetation in the anterior leaflet of the mitral valve. He has had hemoptysis. Bronchoscopy all so far is unremarkable with negative fungal smears. Acid fast smears were negative and of course the cultures are pending. Gram stain revealed many inflammatory cells with few epithelial cells and gram positive cocci, but the culture was negative. The patient tolerated his antimicrobial agents well. He has not had any further episodes of hemoptysis. Denies chest pain or shortness of breath. We spoke about smoking cessation, avoiding all smoking products including e-cigarette and he agrees. His father was there for the conversation. He states he is getting great care. PHYSICAL EXAMINATION: VITAL SIGNS: Stable. He is afebrile, blood pressure 140/71, oxygen saturation 96% on room air. His weight is stable at 99.2 kg. Nurses' notes reviewed. HEENT: Unremarkable. No telangiectasias are noted. No adenopathy is noted anywhere. HEART: Regular rate and rhythm. I do not detect any murmurs. Second heart sound was normal. LUNGS: Clear. ABDOMEN: Soft, nontender. EXTREMITIES: He has no cyanosis, clubbing or edema. IMAGING DATA: Carotid ultrasound was unremarkable. Venous Doppler study was negative. CT of the chest is noted. LABORATORY DATA: His CBC and PRP are stable. Folate is unremarkable. Procalcitonin was 0.05, which is normal. TSH is normal. His C-reactive protein is elevated at 0.74. The ANCA is pending. He has had that evaluated several times in the past and it was unremarkable. IMPRESSION: 1. Pulmonary emboli. 2. Endocarditis of the mitral valve. 3. Hemoptysis with unremarkable bronchoscopy. RECOMMENDATIONS: At this point, I continue his present medications. Increase activity and keep his INR in the 2-2.5 range. Overall, he is stable. Workup for vasculitis and treatment for the endocarditis is ongoing.
[2016-10-08] MEDS ORDERED: MIDAZOLAM HCL 1 MG/ML 2ML VIAL ONE ×2 (10:22→10:35)
[2016-10-08] MEDS ORDERED: FENTANYL CITRATE INJ 50 MCG/1 ML 2 ML VIAL ONE (10:23)
--- NOTE | 2016-10-08 10:40 | Medical Consult ---
Consultation Date of Consultation: Oct 08, 2016. 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 He has been maintained on Xarelto therapy since that time. Also carries a history of seizure disorder. Approximately 2 weeks prior to admission, he developed symptoms of an upper respiratory tract infection, saw his primary care physician who treated him with supportive care. Then developed pleuritic type chest pain was seen in the emergency department where CT scan showed no evidence of pulmonary emboli patient was again discharged home. Then developed worsening pleuritic chest pain with hemoptysis and was admitted to the hospital for further management. Patient had also been complaining of clumsiness and difficulty with gait. Repeat CT scan, read by me, showed evidence of lower lobe pulmonary emboli, as well as upper lobe infiltrative changes that did not appear to be related to areas of emboli. He was started empirically on levofloxacin. Has undergone bronchoscopy with unremarkable findings and cytology. Has had MRI scan of the brain which has shown left cerebellar infarct. Patient has been started on heparin with transition to Coumadin. Yesterday underwent transthoracic echocardiogram which showed presence of a large vegetation on the mitral valve. As discussed with Dr. Dyson, blood cultures were drawn patient was started empirically on vancomycin and ceftriaxone. Patient denies any significant fever, chills, or other systemic complaints except as above. White count has been normal, sed rate is 22. patient did have dental work approximately 1 month ago but took antibiotics prior to the procedure and after. No other significant travel or exposure history. Past Medical/Surgical History Medical Problems: (1) Abdominal pain Status: Acute (2) LOU (acute kidney injury) Status: Acute (3) Hematemesis Status: Acute (4) Hemoptysis Status: Acute (5) Hemoptysis Status: Acute (6) Left leg pain Status: Acute (7) Metabolic acidosis Status: Acute (8) Pleuritis Status: Acute (9) Recurrent seizures Status: Acute (10) Seizure Status: Acute (11) Vertigo Status: Acute (12) Vomiting Status: Acute Medical Problems: (1) Bronchitis (2) Depression (3) Epilepsy (4) Pneumonia (5) Pulmonary embolism (6) Seizure Surgical Problems: (1) H/O wisdom tooth extraction Family History Heart disease Hypertension Kidney stones Seizures Social History Smoking Status: Former Smoker Alcohol Use: occasionally Drug Use: marijuana Marital Status: single Housing Status: lives with family Occupation Status: employed, student Allergies Coded Allergies: Tramadol (Verified Allergy, Severe, SHORTNESS OF BREATH, 10/03/16) lowers seizure threshold Penicillins (Verified Allergy, Unknown, HIVES AND MILD WHEEZING, 10/07/16) Current Inpatient Medications Current Inpatient Medications Medications (Trade) Dose Ordered Sig/Brianda Route Start Time Stop Time Status Last Admin Dose Admin Acetaminophen (Tylenol Tab) 650 mg Q4H PRN PO 10/03/16 07:00 11/02/16 06:59 10/07/16 18:02 650 MG Albuterol/ Ipratropium (Duoneb) 3 ml Q2R PRN INH 10/03/16 07:00 11/02/16 06:59 Benzonatate (Tessalon Perles Cap) 100 mg Q8H PRN PO 10/03/16 07:00 11/02/16 06:59 10/07/16 20:20 100 MG Morphine Sulfate (MoRPHine SULFATE INJ) 4 mg Q3H PRN IV 10/03/16 07:00 10/17/16 06:59 10/06/16 00:37 4 MG Oxycodone/ Acetaminophen (Percocet 5-325mg Tab) 1 tab Q6H PRN PO 10/03/16 07:00 10/17/16 06:59 10/07/16 23:51 1 TAB Lamotrigine (Lamictal Tab) 75 mg BID PO 10/03/16 09:00 11/02/16 08:59 10/08/16 09:37 75 MG Lamotrigine (Lamictal Tab) 200 mg BID PO 10/03/16 09:00 11/02/16 08:59 10/08/16 09:37 200 MG Levetiracetam (Keppra Tab) 500 mg BID PO 10/03/16 09:00 11/02/16 08:59 10/08/16 09:37 500 MG Ondansetron HCl 4 mg 4 mg Q6H PRN IV 10/03/16 07:00 11/02/16 06:59 10/07/16 18:02 4 MG Promethazine HCl 12.5 mg/Sodium Chloride 50.5 ml @ 204 mls/hr Q6H PRN IV 10/03/16 07:00 11/02/16 06:59 Lorazepam/Syringe (Ativan Inj/ Syringe) 1 ml @ 1 mls/min Q4H PRN IV 10/03/16 08:00 11/02/16 07:59 Pantoprazole Sodium 40 mg 40 mg BID PO 10/05/16 21:00 11/04/16 20:59 10/08/16 09:37 40 MG Heparin Sodium/ Dextrose (Heparin 25,000 Unit/500ml D5W) 500 ml @ 19 mls/hr Q24H PRN IV 10/05/16 19:30 11/04/16 19:29 10/05/16 19:47 19 MLS/HR Aspirin (Ecotrin Tab) 81 mg QAM PO 10/08/16 09:00 11/07/16 08:59 10/08/16 09:37 81 MG Atorvastatin Calcium 40 mg 40 mg QAM PO 10/08/16 09:00 11/07/16 08:59 10/08/16 09:37 40 MG Ceftriaxone Sodium/Dextrose (Rocephin Inj/D5 50ml) 70 ml @ 100 mls/hr Q24H IV 10/07/16 15:00 11/18/16 14:59 10/07/16 15:47 100 MLS/HR Diphenhydramine HCl (Benadryl Syrup) 25 mg Q6H PRN PO 10/07/16 14:45 11/06/16 14:44 Vancomycin HCl (Consult) 1 ea UD PRN N/A 10/07/16 16:15 11/18/16 16:14 Warfarin Sodium 6 mg 6 mg DAILY@16 PO 10/08/16 16:00 11/07/16 15:59 Vancomycin HCl/ Sodium Chloride (Vancomycin Inj/ Nss 500ml) 532 ml @ 200 mls/hr Q10H IV 10/08/16 14:00 11/18/16 15:59 Review of Systems Constitutional: No chills, No fever Eyes: No problem reported ENT: + nasal symptoms Respiratory: + cough, + hemoptysis, + sputum Cardiovascular: + chest pain Abdomen: No problem reported Musculoskeletal: No problem reported Genitourinary - Male: No problem reported Neurologic: + balance problems, + vertigo Psychiatric: No problem reported Endocrine: No problem reported Hematologic / Lymphatic: + clotting problems Integumentary: No problem reported Allergic / Immunologic: No problem reported Physical Exam Date Time Temp Pulse Resp B/P Pulse Ox O2 Delivery O2 Flow Rate FiO2 10/08/16 07:39 36.6 77 18 140/71 96 Room Air 10/08/16 04:00 Room Air 10/08/16 04:00 36.6 70 15 117/60 97 Room Air 10/08/16 00:00 36.7 75 18 118/63 96 Room Air 10/08/16 00:00 Room Air 10/07/16 20:00 Room Air 10/07/16 19:31 36.7 81 22 113/62 96 Room Air 10/07/16 16:17 36.7 82 18 97 10/07/16 16:00 Room Air 10/07/16 15:50 Room Air 10/07/16 15:11 36.7 82 18 124/77 97 10/07/16 12:29 78 16 106/67 95 Room Air 10/07/16 12:00 Room Air General Appearance: WD/WN, no apparent distress Head: normocephalic, atraumatic Eyes: EOMI, sclerae normal, + pertinent finding (right subconjunctival hemmorage) ENT: normal ENT inspection, hearing grossly normal, pharynx normal Neck: supple, no adenopathy, thyroid normal, trachea midline Respiratory/Chest: chest non-tender, lungs clear, normal breath sounds, no respiratory distress Cardiovascular: regular rate, rhythm, no gallop, no murmur Abdomen/GI: normal bowel sounds, non tender, soft, no organomegaly Back: normal inspection, no CVA tenderness Extremities/Musculoskelatal: no calf tenderness, normal capillary refill, non- tender Neurologic/Psych: alert, oriented x 3 Skin: normal color, warm/dry, no rash, + pertinent finding (small splinter right 5th finger) Laboratory Results RUN DATE: 10/06/16 [facility] LAB PAGE 1 RUN TIME: 0810 Specimen Inquiry PATIENT: JANE SUTTON LOC: [facility] # : [id number] AGE/SX: 26/M ROOM: [facility] REG : 10/03/[address]: Ilya Hoang MD : 1990 BED: 2 DIS : STATUS: ADM IN TLOC: SPEC #: [id number] ROCK: 10/04/16 STATUS: COMP REQ #: [id number] RECD: 10/04/[address]: Esteban Lepe MD SOURCE: [facility] WASH ENTR: 10/04/[address]: Mukesh Boyd M.D. SPDESC: Tawanda Barry M.D. Patel, Nilesh A., M.D. Vangala, Satish K., MD ORDERED: [facility] CUL/SM Procedure Result Verified Site GRAM STAIN Final 10/04/16-1307 RESULT MODERATE POLYS FEW EPITHELIAL CELLS FEW MONONUCLEATED CELLS RARE BRONCHIAL EPITHELIAL CELLS FEW GRAM POSITIVE COCCI BRONCH WASH CULTURE Final 10/06/16-0810 LIGHT NORMAL [place]ERRAT. Last 24 Hours Test 10/08/16 05:11 White Blood Count 6.67 K/uL Red Blood Count 4.08 M/uL Hemoglobin 12.2 g/dL Hematocrit 33.3 % Mean Corpuscular Volume 81.6 fL Mean Corpuscular Hemoglobin 29.9 pg Mean Corpuscular Hemoglobin Concent 36.6 g/dl Platelet Count 87 K/uL Mean Platelet Volume 10.8 fL Neutrophils (%) (Auto) 62.0 % Lymphocytes (%) (Auto) 22.5 % Monocytes (%) (Auto) 9.7 % Eosinophils (%) (Auto) 5.1 % Basophils (%) (Auto) 0.4 % Neutrophils # (Auto) 4.13 K/uL Lymphocytes # (Auto) 1.50 K/uL Monocytes # (Auto) 0.65 K/uL Eosinophils # (Auto) 0.34 K/uL Basophils # (Auto) 0.03 K/uL RDW Standard Deviation 35.9 fL RDW Coefficient of Variation 12.3 % Immature Granulocyte % (Auto) 0.3 % Immature Granulocyte # (Auto) 0.02 K/uL Prothrombin Time 12.8 SECONDS Prothromb Time International Ratio 1.2 Activated Partial Thromboplast Time 66.1 SECONDS Partial Thromboplastin Ratio 2.5 Creatinine 1.30 mg/dl Est Creatinine Clear Calc Drug Dose 97.2 ml/min Estimated GFR () 87.9 Estimated GFR (Non- 75.8 Triglycerides Level 98 mg/dl Cholesterol Level 156 mg/dl HDL Cholesterol 34 mg/dl LDL Cholesterol, Calculated 102 mg/dl VLDL Cholesterol, Calculated 20 mg/dl Cholesterol/HDL Ratio 4.6 Patient Name: JANE SUTTON Unit Number: [id number] Dictated: 10/03/16649 Transcribed: 10/03/16649 MS Printed Date/Time: [~ rep prt dt]/[~ rep prt tm] [~ rep ct labl] - [~ rep ct ivnm] [facility] [place] [place] [address] Dictated: 10/03/16649 Transcribed: 10/03/16649 MS Printed Date/Time: [~ rep prt dt]/[~ rep prt tm] [~ rep ct labl] - [~ rep ct ivnm] CHEST CTA for PULMONARY ARTERIES CT DOSE: 560.48 mGy.cm HISTORY: Chest pain dyspnea TECHNIQUE: Multiaxial CT images of the chest were performed following the intravenous administration of contrast to evaluate the pulmonary arteries. Maximal intensity projection images were also obtained. COMPARISON STUDY: None. FINDINGS: There is a normal caliber thoracic aorta with no evidence for dissection. There is no evidence for pulmonary embolus. No significant pleural effusion. Pulmonary vasculature enhances appropriately. Moderate mediastinal and hilar adenopathy. A parenchymal infiltrate scattered throughout both hemithoraces. Some atypical pulmonary edematous changes a potential diagnostic possibility. IMPRESSION: 1. Study is negative for significant pulmonary embolus. 2. Diffuse bilateral patchy parenchymal infiltrates versus atypical pulmonary edema. 3. Moderate mediastinal and hilar adenopathy Electronically signed by: Sean Melo M.D. 10/03/2016 6:53 AM Dictated Date/Time: 10/03/2016 6:50 AM The status of this report is Signed. Draft = Not yet reviewed or approved by Radiologist. Signed = Reviewed and approved by Radiologist. <AttendingPhy></AttendingPhy> <FamilyPhy>Mukesh Boyd M.D.</FamilyPhy> < PrimaryPhy>Mukesh Boyd M.D.</PrimaryPhy> <UnitNumber>[id number]</UnitNumber> < VisitNumber>[id number]</VisitNumber> <PatientName>JANE SUTTON</ PatientName> <DateOfBirth>1990</DateOfBirth> <Location>C.EDB</Location> < ServiceDate>10/03/16</ServiceDate> <MNE>ESINDI</MNE> <OrderingPhy>Eunice Garvey PA-C</OrderingPhy> <OrderingPhyMNE>f rep ord dr bar</OrderingPhyMNE> < DictatingPhyMNE>f rep dict dr bar</DictatingPhyMNE> <CCListMNE>f rep ct mne</ CCListMNE> <AdmittingPhyMNE>f pt admit dr bar</AdmittingPhyMNE> <AttendingPhyMNE >f pt attend dr bar</AttendingPhyMNE> <ConsultingPhyMNE>f pt consult dr bar</ConsultingPhyMNE> <FamilyPhyMNE>f pt fam dr bar</FamilyPhyMNE> <OtherPhyMNE>f pt other dr bar</OtherPhyMNE> < PrimaryPhyMNE>f pt prim care dr bar</PrimaryPhyMNE> <ReferringPhyMNE>f pt referring dr bar</ReferringPhyMNE> Patient Name: JANE SUTTON Unit Number: [id number] Dictated: 10/07/161118 Transcribed: 10/07/16 1119 MS Printed Date/Time: [~ rep prt dt]/[~ rep prt tm] [~ rep ct labl] - [~ rep ct ivnm] [facility] [place] [place] [address] Dictated: 10/07/161118 Transcribed: 10/07/16 1119 MS Printed Date/Time: [~ rep prt dt]/[~ rep prt tm] [~ rep ct labl] - [~ rep ct ivnm] CONTRAST CLINICAL HISTORY: Ambulatory dysfunction: New onset COMPARISON STUDY: CT dated 10/03/2016, MRI 10/01/2015 FINDINGS: diffusion-weighted images demonstrate subacute infarct medial aspect left cerebellum. This measures 12 x 9 mm. Punctate foci of subacute ischemic change are noted within the mid superior left cerebellum transaxial image 6 as well as an additional punctate focus within the left posterior occipital lobe transaxial image 11. These are identified in part or in total on the proton density as well as T2 images consistent with a subacute multifocal infarcts. Several pre-existing foci of increased signal throughout both cerebral hemispheres are similar. Postcontrast images demonstrate a small focus of telangectasia of the right paraventricular region which is unaltered. IMPRESSION: 1. 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 2. Additional foci of subacute ischemic change central left cerebellum and left occipital lobe. 3. Several nonspecific foci of increased signal throughout both cerebral hemispheres unchanged from the prior study 4. No significant postcontrast enhancement Electronically signed by: Sean Melo M.D. 10/07/2016 11:31 AM Dictated Date/Time: 10/07/2016 11:19 AM The status of this report is Signed. Draft = Not yet reviewed or approved by Radiologist. Signed = Reviewed and approved by Radiologist. <AttendingPhy>Ilya Hoang MD</AttendingPhy> <FamilyPhy>Mukesh Boyd M.D.</FamilyPhy> <PrimaryPhy>Mukesh Boyd M.D.</PrimaryPhy> <UnitNumber> [id number]</UnitNumber> <VisitNumber>[id number]</VisitNumber> <PatientName> JANE SUTTON</PatientName> <DateOfBirth>1990</DateOfBirth> <Location >C.MED</Location> <ServiceDate>10/03/16</ServiceDate> <MNE>ESINDI</MNE> < OrderingPhy>Ilya Hoang MD</OrderingPhy> <OrderingPhyMNE>f rep ord dr bar< /OrderingPhyMNE> <DictatingPhyMNE>f rep dict dr bar</DictatingPhyMNE> <CCListMNE >f rep ct mne</CCListMNE> <AdmittingPhyMNE>f pt admit dr bar</AdmittingPhyMNE> < AttendingPhyMNE>f pt attend dr bar</AttendingPhyMNE> <ConsultingPhyMNE>f pt consult dr bar</ConsultingPhyMNE> <FamilyPhyMNE>f pt fam dr bar</FamilyPhyMNE> <OtherPhyMNE>f pt other dr bar</OtherPhyMNE> < PrimaryPhyMNE>f pt prim care dr bar</PrimaryPhyMNE> <ReferringPhyMNE>f pt referring dr bar</ReferringPhyMNE> Assessment & Plan 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 As discussed with Dr. Dyson, patient started on empiric antibiotic therapy with vancomycin and ceftriaxone pending results of blood cultures. Agree with SANDIE. Discussed with all involved including at length his parents. Will follow.
--- NOTE | 2016-10-08 13:19 | PROGRESS NOTE ---
DATE: 10/08/2016 FOLLOWUP VISIT SUBJECTIVE: The patient is a 26-year-old male who had a recent embolic stroke. He also has a history of an unprovoked pulmonary emboli and anticardiolipin antibodies. He has had an extensive workup including pulmonary, rheumatology and earlier this admission hematology. As part of his stroke workup, he had an echocardiogram that revealed a vegetation on the mitral valve. He has had infectious disease evaluation and I agree with the infectious disease doctor that this is an unusual presentation for infectious endocarditis as the patient has not been febrile. There is no white count elevation and his sed rate is normal. 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 After his pulmonary emboli the patient was placed on Xarelto. It could be that the Xarelto is not beneficial in the treatment of his hypercoagulable state. We will have to have hematology comment on this possibility. For now, I agree with continuing his antibiotics until his cultures are back. I also agree with transitioning him from heparin to Coumadin. I performed a SANDIE this morning. The mitral valve remains competent and there is no evidence of vegetations on any the other cardiac valves. On the transthoracic echocardiogram the vegetation on the anterior leaflet of mitral valve measured 2.3 cm. Although the measurements are pending because we will have to do them in the echo lab following the SANDIE. It appears anecdotally that the vegetation on the mitral valve may be a little smaller. OBJECTIVE: GENERAL: The patient is alert and oriented. VITAL SIGNS: Blood pressure is 150/80, pulse is regular at 92. He is afebrile. HEENT: He is normocephalic. Pupils are equal and reactive to light. Extraocular muscles are intact bilaterally. NECK: The neck veins are flat. Carotids have good upstrokes bilaterally without bruits. Thyroid is nonpalpable. RESPIRATORY: Breath sounds equal bilaterally and clear to auscultation. CARDIOVASCULAR: Heart has a regular rhythm. Normal S1, S2. No S3, S4. No cardiac rubs or murmurs. GASTROINTESTINAL: Abdomen is soft, nontender without organomegaly. EXTREMITIES: Free of edema, digit clubbing, or cyanosis. NEUROLOGIC: Grossly intact. SKIN: Warm to touch. LYMPH NODES: Negative to palpation. IMPRESSION: 1. Endocarditis possibly infectious; however, it could also be noninfectious or marantic endocarditis. 2. Embolic strokes. 3. History of seizure disorder. 4. Pulmonary emboli which was unprovoked in April 2016. 5. Antiphospholipid antibody syndrome. RECOMMENDATIONS: As outlined above, we will continue the patient's antibiotics and transition him from heparin to Coumadin and stop the Xarelto. I am hopeful that the vegetation on the mitral leaflet has decreased in size, but we will not know that till we measure it in the echo lab. I would like to have hematology's opinion regarding the Xarelto and whether it failed us in this case.
[2016-10-08] MEDS: VANCOMYCIN INJ 1,600 MG in SODIUM CHLORIDE 0.9% 500ML 500 ML IV SCH (13:29)
--- NOTE | 2016-10-08 13:50 | DIAGNOSTIC IMAGING REPORT ---
Brain MRA HISTORY: Multiple posterior circulation infarct. TECHNIQUE: 3-D [id number] MRA of the brain was performed without contrast. COMPARISON STUDY: Brain MRI 10/07/2016. FINDINGS: Visualized intracranial internal carotid arteries, distal vertebral arteries, and basilar artery are widely patent. There is no significant stenosis, occlusion, or aneurysm seen within the bilateral ACAs, MCAs, or senior financial. The cerebellar arteries appear patent. The right anterior inferior cerebellar artery is slightly hypoplastic but patent. IMPRESSION: No significant stenosis, occlusion, or aneurysm within the [facility] [place]. Electronically signed by: Titus Hartmann M.D. 10/08/2016 1:49 PM Dictated Date/Time: 10/08/2016 1:43 PM
--- NOTE | 2016-10-08 13:58 | DIAGNOSTIC IMAGING REPORT ---
MR ANGIOGRAM OF THE NECK COMBO CLINICAL HISTORY: Stroke. COMPARISON STUDY: Ultrasound of the carotid arteries dated 10/08/2016. TECHNIQUE: Axial 3-D [id number] MR angiography of the neck is performed. Subsequently, following the IV administration of 20 cc of Magnevist coronal MR angiogram of the neck was performed to corroborate the findings. 3-D reformats are created and assessed. All measurements were calculated based on NASCET criteria. FINDINGS: Visualized portions of the thoracic aorta are normal in caliber. The aortic arch demonstrates standard 3-vessel anatomy. The subclavian arteries are widely patent bilaterally. The right common carotid artery is widely patent, as are the right internal and external carotid arteries. The left common carotid artery is widely patent, as are the left internal and external carotid arteries. The vertebral arteries are widely patent noting right-sided dominance. The visualized intracranial vessels appear clear. The internal jugular veins are patent. IMPRESSION: Unremarkable MR angiogram of the neck. Electronically signed by: Adolph Duarte M.D. 10/08/2016 1:56 PM Dictated Date/Time: 10/08/2016 1:53 PM
[2016-10-08] MEDS: ACETAMINOPHEN 325 MG TAB PO PRN ×2 (14:47→21:01)
--- NOTE | 2016-10-08 14:50 | TEE ---
*NOTICE TO RECEIVING [employer] This information is strictly Confidential and protected under [place] law. [place] law prohibits you from making any further disclosure of this information unless further disclosure is expressly permitted by the written consent of the person to whom it pertains or is authorized by law. A general authorization for the release of medical or other information is not sufficient for this purpose. Hospital accepts no responsibility if the information is made available to any other person, INCLUDING THE PATIENT. Interpretation Summary * Name: JANE SUTTON Study Date: 10/08/2016 10:28 AM BP: 153/88 mmHg * Patient Location: .MSICU\S\E108\S\1 HR: 92 * : 1990 (M/d/yyyy) Gender: Male Height: 67 in * Age: 26 yrs Ethnicity: CA Weight: 217 lb * Ordering Physician: Asher Dyson * Referring Physician: Self, Referred * Performed By: Melissa Gaming RDCS * * Reason For Study: ENC, MITRAL VALVE * BSA: 2.1 m2 * History: ENC, MITRAL VALVE * -- Conclusions -- * Mobile vegetation on the anterior leaflet of the mitral valve measuring 1.3 by 1.9 cm. * There is trace mitral regurgitation. Procedure Details * SANDIE Probe #2 utilized for procedure. * Time out was conducted by the physician, nurse, and certified cytotechnologist with positive identification of patient and procedure. * Informed consent for Transesophageal Echocardiogram was obtained prior to the procedure. * An intravenous line was placed. A topical anesthetic agent was used for oropharangeal anesthesia. A bite block was inserted. * The patient's vital signs, including blood pressure, heart rate, pulse oximetry and cardiac rhythm were monitored throughout the procedure . * Fentanyl 50 mcg was administered for procedural sedation. * Midazolam 4 mg administered for sedation. * The posterior oropharynx was anesthetized using a topical anesthetic spray. A bite guard was inserted. * A multifrequency, multiplane transesopheageal echocardiographic endoscope was inserted and manipulated in the standard fashion to achieve multiplane views. * The usual views were obtained; basal, mid-esophageal, transgastric and aortic views. * The patient tolerated the procedure well without evidence of orophangeal or esophageal trauma. * A 2D transesophageal echocardiogram with spectral and color flow Doppler was performed. Left Ventricle * The left ventricle is normal in size. * There is no thrombus. * There is normal left ventricular wall thickness. * Left ventricular systolic function is normal. * The left ventricular wall motion is normal. Right Ventricle * The right ventricle is normal size. * The right ventricular systolic function is normal. Atria * The left atrial size is normal. * No thrombus is detected in the left atrial appendage. * Right atrial size is normal. * The interatrial septum is intact with no evidence for an atrial septal defect. Mitral Valve * Mobile vegetation on the anterior leaflet of the mitral valve measuring 1.3 by 1.9 cm. * There is trace mitral regurgitation. Tricuspid Valve * The tricuspid valve is normal in structure and function. * There is no tricuspid valve vegetation. Aortic Valve * The aortic valve is normal in structure and function. * There is no aortic valvular vegetation. Pulmonic Valve * The pulmonic valve is not well seen, but is grossly normal. Great Vessels * The aortic root and proximal ascending aorta are normal sized. Pericardium * There is no pericardial effusion. Pulmonic Valve * There is no vegetation on the pulmonic valve.
[2016-10-08] MEDS: CEFTRIAXONE SOD INJ 2,000 MG in DEXTROSE 5% 50ML 50 ML IV SCH (15:00)
--- NOTE | 2016-10-08 16:33 | Neurology Progress Notes ---
Neurology Progress Note Date of Service Oct 08, 2016. Natasha Brady is a 26 year old male PMH seizure disorder, past tobacco abuse, pulmonary embolism on Xarelto last April. he came into the hospital on due to vomiting, dizziness. 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 An MRI revealed a cerebellar stroke. A SANDIE was ordered and it was discovered he had a non infectious cardiac vegetation. He has been up walking with PT and states he is doing much better. denies CP, SOB, abdominal pain, N, V. Objective Date Time Temp Pulse Resp B/P Pulse Ox O2 Delivery O2 Flow Rate FiO2 10/08/16 15:00 36.4 82 17 116/42 96 Room Air 10/08/16 12:00 Room Air 10/08/16 12:00 36.7 10/08/16 11:10 92 22 153/88 93 2.0 10/08/16 11:05 89 18 159/89 98 2.0 10/08/16 11:00 70 12 148/72 96 2.0 10/08/16 10:57 79 15 150/90 97 2.0 10/08/16 08:00 Room Air 10/08/16 07:39 36.6 77 18 140/71 96 Room Air 10/08/16 04:00 Room Air 10/08/16 04:00 36.6 70 15 117/60 97 Room Air 10/08/16 00:00 36.7 75 18 118/63 96 Room Air 10/08/16 00:00 Room Air 10/07/16 20:00 Room Air 10/07/16 19:31 36.7 81 22 113/62 96 Room Air Last 24 Hours Test 10/08/16 05:11 10/08/16 16:13 White Blood Count 6.67 K/uL Red Blood Count 4.08 M/uL Hemoglobin 12.2 g/dL Hematocrit 33.3 % Mean Corpuscular Volume 81.6 fL Mean Corpuscular Hemoglobin 29.9 pg Mean Corpuscular Hemoglobin Concent 36.6 g/dl Platelet Count 87 K/uL Mean Platelet Volume 10.8 fL Neutrophils (%) (Auto) 62.0 % Lymphocytes (%) (Auto) 22.5 % Monocytes (%) (Auto) 9.7 % Eosinophils (%) (Auto) 5.1 % Basophils (%) (Auto) 0.4 % Neutrophils # (Auto) 4.13 K/uL Lymphocytes # (Auto) 1.50 K/uL Monocytes # (Auto) 0.65 K/uL Eosinophils # (Auto) 0.34 K/uL Basophils # (Auto) 0.03 K/uL RDW Standard Deviation 35.9 fL RDW Coefficient of Variation 12.3 % Immature Granulocyte % (Auto) 0.3 % Immature Granulocyte # (Auto) 0.02 K/uL Prothrombin Time 12.8 SECONDS Prothromb Time International Ratio 1.2 Activated Partial Thromboplast Time 66.1 SECONDS Partial Thromboplastin Ratio 2.5 Creatinine 1.30 mg/dl Est Creatinine Clear Calc Drug Dose 97.2 ml/min Estimated GFR () 87.9 Estimated GFR (Non- 75.8 Triglycerides Level 98 mg/dl Cholesterol Level 156 mg/dl HDL Cholesterol 34 mg/dl LDL Cholesterol, Calculated 102 mg/dl VLDL Cholesterol, Calculated 20 mg/dl Cholesterol/HDL Ratio 4.6 Imaging: MRI with and without contrast- 1. 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 Additional foci of subacute ischemic change central left cerebellum and left occipital lobe. Several nonspecific foci of increased signal throughout both cerebral hemispheres unchanged from the prior study No significant postcontrast enhancement SANDIE- * Mobile vegetation on the anterior leaflet of the mitral valve measuring 1.3 by 1.9 cm. * There is trace mitral regurgitation. * NO ASD Exam: Physical Exam: Constitutional: appearance nourished, healthy and normal Ears, Nose, Mouth and Throat: mucous membranes moist, no injection and skin normal, eyes normal Cardiovascular: normal S-1 and S-2 and regular rate and rhythm Respiratory: clear to auscultation (CTA) and no rales, rhonchi or wheeze Musculoskeletal: no peripheral edema and good distal pulses, bilaterally paler, cool to touch Skin: no stigmata of neurocutaneous disease noted and normal and intact Eyes: extraocular muscles intact (EOMI) and pupils equal, round and reactive to light (PERRL) NEUROLOGIC EXAMINATION: Mental status: Alert and interactive Oriented to full date and location Oriented to person Speech fluent with no evidence of aphasia Cranial Nerves Normal findings for Cranial Nerves II - XII, facial symmetry Coordination: finger to nose without bipass Gait/Stance: Posture sitting up in bed Motor: Negative for pronator drift of out stretched arms with eyes closed. Strength: biceps triceps deltoids hand recovery room rn bilaterally 5/5, hip flex plantar flex ext 5/ 5 bilaterally Current Inpatient Medications Medications (Trade) Dose Ordered Sig/Brianda Route Start Time Stop Time Status Last Admin Dose Admin Acetaminophen (Tylenol Tab) 650 mg Q4H PRN PO 10/03/16 07:00 11/02/16 06:59 10/08/16 14:47 650 MG Albuterol/ Ipratropium (Duoneb) 3 ml Q2R PRN INH 10/03/16 07:00 11/02/16 06:59 Benzonatate (Tessalon Perles Cap) 100 mg Q8H PRN PO 10/03/16 07:00 11/02/16 06:59 10/07/16 20:20 100 MG Morphine Sulfate (MoRPHine SULFATE INJ) 4 mg Q3H PRN IV 10/03/16 07:00 10/17/16 06:59 10/06/16 00:37 4 MG Oxycodone/ Acetaminophen (Percocet 5-325mg Tab) 1 tab Q6H PRN PO 10/03/16 07:00 10/17/16 06:59 10/07/16 23:51 1 TAB Lamotrigine (Lamictal Tab) 75 mg BID PO 10/03/16 09:00 11/02/16 08:59 10/08/16 09:37 75 MG Lamotrigine (Lamictal Tab) 200 mg BID PO 10/03/16 09:00 11/02/16 08:59 10/08/16 09:37 200 MG Levetiracetam (Keppra Tab) 500 mg BID PO 10/03/16 09:00 11/02/16 08:59 10/08/16 09:37 500 MG Ondansetron HCl 4 mg 4 mg Q6H PRN IV 10/03/16 07:00 11/02/16 06:59 10/07/16 18:02 4 MG Promethazine HCl 12.5 mg/Sodium Chloride 50.5 ml @ 204 mls/hr Q6H PRN IV 10/03/16 07:00 11/02/16 06:59 Lorazepam/Syringe (Ativan Inj/ Syringe) 1 ml @ 1 mls/min Q4H PRN IV 10/03/16 08:00 11/02/16 07:59 Pantoprazole Sodium 40 mg 40 mg BID PO 10/05/16 21:00 11/04/16 20:59 10/08/16 09:37 40 MG Heparin Sodium/ Dextrose (Heparin 25,000 Unit/500ml D5W) 500 ml @ 19 mls/hr Q24H PRN IV 10/05/16 19:30 11/04/16 19:29 10/05/16 19:47 19 MLS/HR Aspirin (Ecotrin Tab) 81 mg QAM PO 10/08/16 09:00 11/07/16 08:59 10/08/16 09:37 81 MG Atorvastatin Calcium 40 mg 40 mg QAM PO 10/08/16 09:00 11/07/16 08:59 10/08/16 09:37 40 MG Ceftriaxone Sodium/Dextrose (Rocephin Inj/D5 50ml) 70 ml @ 100 mls/hr Q24H IV 10/07/16 15:00 11/18/16 14:59 10/07/16 15:47 100 MLS/HR Diphenhydramine HCl (Benadryl Syrup) 25 mg Q6H PRN PO 10/07/16 14:45 11/06/16 14:44 Vancomycin HCl (Consult) 1 ea UD PRN N/A 10/07/16 16:15 11/18/16 16:14 Warfarin Sodium 6 mg 6 mg DAILY@16 PO 10/08/16 16:00 11/07/16 15:59 Vancomycin HCl/ Sodium Chloride (Vancomycin Inj/ Nss 500ml) 532 ml @ 200 mls/hr Q10H IV 10/08/16 14:00 11/18/16 15:59 10/08/16 13:29 200 MLS/HR Impression 26 year old seizure disorder, PE with anti phos antibody positive and new onset cerebellar stroke Plan 1. continue Keppra 500 mg BID 2. continue lamictal 275 mg BID 3. seizure medications will be re addressed at next out patient visit 4. lamictal and keppra levels 5. LE arterial dopplers to r/o clots 6. coumadin started cardiology to advise 7. aspirin 81 mg started 8. PT/OT for discharge needs 9. seizure precautions and fall precautions I have seen and discussed above patient with Dr Uriah De La Rosa, neurology Reviewed with Anna RUSSELL and long discussion with patient and his mother. Notes from ID and Cardiology reviewed along with echo report imaging reveals no evidence for vasculitic or at least small/medium vessel intracranial disease and no vertebral dissection but there is a likley marantic vegetation on the mitral valve that clearly was the source for the embolic posterior circulation shower now on mix of coumadin and asa doing well with much improved left cerebellar signs and a very good prognosis for recovery. We wiil not change the antiseizure meds at this time and defer to outpatient evaluation but will get levels today and review later Will continue to follow Lower extremity apresthesias with some coldness of toes and limited capillary filling but with good pulses will check arterial dopplers but doubt significant leg embolization or indeed any significant vascular issues and doubt a peripheral neuropathy by normal sensory and motor exminations Uriah De La Rosa MD
[2016-10-08] MEDS: WARFARIN SOD 6 MG TAB PO SCH (17:16)
--- NOTE | 2016-10-08 20:55 | DIAGNOSTIC IMAGING REPORT ---
CT HEAD WITHOUT CONTRAST (CT) CLINICAL HISTORY: Tinnitus, dizziness. HISTORY OF CEREBELLAR INFARCT COMPARISON STUDY: Head CT dated 10/03/2016, MRI the brain dated 10/07/2016. TECHNIQUE: Axial CT of the brain is performed from the vertex to the skull base. IV contrast was not administered for this examination. CT DOSE: 537.48 mGy.cm FINDINGS: No intra or extra-axial mass lesions are visualized. There is no evidence of midline shift. There is no acute hemorrhage. No calvarial fractures are visualized. There is a hypodensity involving the left anterior superior medial cerebellum, consistent with a subacute infarct. There is no evidence of pathologic ventricular dilatation. There is no evidence of acute sinusitis IMPRESSION: 1. Left cerebellar hypodensity, consistent with the patient's known recent infarct 2. No evidence of acute hemorrhage. Electronically signed by: Haider Rob M.D. 10/08/2016 8:54 PM Dictated Date/Time: 10/08/2016 8:50 PM
[2016-10-08] MEDS: ONDANSETRON INJ 2 MG/ML 2 ML VIAL IV PRN (21:01)
[2016-10-08] MEDS: HEPARIN 25,000 UNIT/500ML D5W 500 ML IV PRN (21:27)
[2016-10-08 23:36] LABS: MYELOPEROXIDASE AB <1.0 AI (<1.0)
[2016-10-08] MEDS: BENZONATATE 100MG CAP PO PRN (23:37)
[2016-10-09] VITALS (8 sets, daily range): BP systolic 99–112; BP diastolic 46–61; PULSE 59–70; TEMP 36.3–36.8; O2SAT 96–97
[2016-10-09] MEDS: VANCOMYCIN INJ 1,600 MG in SODIUM CHLORIDE 0.9% 500ML 500 ML IV SCH ×3 (00:29→20:07)
[2016-10-09] MEDS ORDERED: VANCOMYCIN TROUGH SCH ×2 (03:30→09:30)
[2016-10-09 07:28] LABS: BASO % 0.4 %; BASO ABS # 0.03 K/uL (0-0.2); COMPLETE YES; EOS % 4.7 %; HEMATOCRIT 36.3 % (42-52); IG% 0.3 %; LYMPH ABS # 1.42 K/uL (1.2-3.4); MEAN CELL VOLUME 81.9 fL (80-100); MEAN CORPUSCULAR HEMOGLOBIN 30.2 pg (25-34); MEAN CORPUSCULAR HGB CONC 36.9 g/dl (32-36); MEAN PLATELET VOLUME 10.7 fL (7.4-10.4); MONO % 7.1 %; NEUT % 67.5 %; PLATELET COUNT 105 K/uL (130-400); RED BLOOD COUNT 4.43 M/uL (4.7-6.1); WHITE BLOOD COUNT 7.09 K/uL (4.8-10.8)
[2016-10-09] MEDS: ACETAMINOPHEN 325 MG TAB PO PRN ×3 (07:28→23:11)
[2016-10-09] MEDS: LEVETIRACETAM 500 MG TAB PO SCH ×2 (07:29→21:17)
[2016-10-09] MEDS: ASPIRIN 81 MG ECTAB PO SCH (07:29)
[2016-10-09] MEDS: ATORVASTATIN 40 MG TAB PO SCH (07:30)
[2016-10-09] MEDS: PANTOprazole SOD 40 MG TAB PO SCH ×2 (07:31→21:18)
--- NOTE | 2016-10-09 07:39 | PROGRESS NOTE ---
DATE: 10/09/2016 PULMONARY PROGRESS NOTE SUBJECTIVE: The patient is very comfortable this morning. He denies any hemoptysis or chest pain, he is out of bed in the chair without any lightheadedness. He slept very well and is eating well. According to the nurses' notes, did speak with the nurses this morning and he has no particular complaints except for minimal dry cough. He did have a headache with some numbness. He had a CAT scan of his head done yesterday afternoon with known recent infarction with no evidence of any bleeding. MEDICATIONS: Reviewed. PHYSICAL EXAMINATION: VITAL SIGNS: Stable. He is afebrile. Blood pressure is 99/53. It generally runs in the 130/54 to 112/46 range, oxygen saturation 96% on room air. I O is 828 in, 1350 out and yesterday 2200 in and last night 1200 out. Weight is 96.6 kilograms which is down from 99.4 on the 16th. The I\T\O balance appears to be appropriate. HEENT: Unremarkable. No evidence of any facial asymmetry noted. Posterior pharynx is normal. There is no neck vein distention or HJR. HEART: Regular rate and rhythm. No murmurs or gallops are auscultated. LUNGS: Clear. ABDOMEN: Soft, nontender. He has no cyanosis, clubbing or edema. CBC is pending as is the PRP. LABORATORY DATA: INR was 1.2 yesterday with a PTT of 66 seconds. RUDDY is negative and type protein H3 and anti-myeloperoxidase are unremarkable. The ANCA is negative. IMPRESSION: 1. Pulmonary embolism. 2. Mitral valve endocarditis. 3. Hemoptysis, resolved. RECOMMENDATIONS: 1. Continue with his present medications and anticoagulants. 2. He will need a repeat CT scan of the thorax in about 3-4 weeks. If the hilar adenopathy persists, an endobronchial ultrasound guided biopsy may be warranted. Overall, he is stable. BARBRA
[2016-10-09 07:43] LABS: INR 1.4 (0.9-1.1); PARTIAL THROMBOPLASTIN RATIO 2.1; PROTHROMBIN TIME (PATIENT) 14.8 SECONDS (9.0-12.0)
--- NOTE | 2016-10-09 07:45 | DIAGNOSTIC IMAGING REPORT ---
ULTRASOUND BILATERAL LOWER EXTREMITY ARTERIAL CLINICAL HISTORY: Diminished capillary refill in both lower extremities. COMPARISON STUDY: Bilateral lower extremity venous ultrasound dated 10/03/2016. TECHNIQUE: Real-time, grayscale, and color Doppler sonography of the arteries of the right and left lower extremity is performed from the inguinal crease to the foot. Ankle-brachial indices number not performed due to the presence of deep venous thrombosis. FINDINGS: No atherosclerotic plaque is identified in the arteries of the right or left lower extremity. Velocities are normal, and there are normal triphasic arterial waveforms seen in both legs. No high-grade stenosis or focal vessel cut is seen. There is three-vessel runoff to the foot bilaterally. IMPRESSION: Unremarkable Doppler arterial assessment of the right and left lower extremity. Electronically signed by: Adolph Duarte M.D. 10/09/2016 7:43 AM Dictated Date/Time: 10/09/2016 7:41 AM
[2016-10-09 07:53] LABS: CREATININE 1.3 mg/dl (0.60-1.40)
[2016-10-09] MEDS: ONDANSETRON INJ 2 MG/ML 2 ML VIAL IV PRN (10:03)
--- NOTE | 2016-10-09 10:32 | Progress Note ---
Internal Med Progress Note Date of Service: Oct 09, 2016. Provider Documentation: SUBJECTIVE: The patient was seen and examined Complains of Nausea but no vomiting Denies any Fever,chills No Chest pain,palpitation or SOB OBJECTIVE: Vital Signs-as noted below Exam: General-no distress at rest Eyes-normal ENT-normal Neck-supple Lungs-clear to ausucltate bilaterally Heart-Regular,no murmur Abdomen-Benign,no masses,bowel sound present Extremities-No edema Neuro-AAOx3 Lab data as noted below. PROCEDURES: CTA: 1. Study is negative for significant pulmonary embolus. 2. Diffuse bilateral patchy parenchymal infiltrates versus atypical pulmonary edema. 3. Moderate mediastinal and hilar adenopathy CT head: No acute intracranial abnormality. Repeat CT 10/08/16:1. Left cerebellar hypodensity, consistent with the patient' s known recent infarct 2. No evidence of acute hemorrhage. CT ABD: Bibasilar parenchymal infiltrates. Otherwise negative abdomen and pelvis Venous Doppler: No evidence of deep venous thrombus within the bilateral lower extremities. Previous Hypercoagulable work up: Homocystine: 9.3 (within normal limits) Anticardiolipin Ig (<=14) Anti-cardiolipin IgM: antibody: 19 (<=12) Anticardiolipin IgA: <11 (WNL) Anti-beta 2 glycoprotein Ig (greater than 20) Anti-beta-2 glycoprotein IgM: 25 (greater than 20) anti-beta-2 glycoprotein IgA: <9 (within normal limits) Prothrombin gene mutation: [id number] mutation not detected Antithrombin III activity: 109% (within normal limits) Protein C activity: 131% (within normal limits) Protein S activity: 85% (within normal limits) Factor V Leiden mutation: Not detected LUNG, RIGHT MIDDLE LOBE, BRONCHIAL WASHINGS: 1. ALVEOLAR MACROPHAGES AND NEUTROPHILS. SEE COMMENT. 2. NO MALIGNANT CELLS SEEN. MRI Brain: 1. 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 2. Additional foci of subacute ischemic change central left cerebellum and left occipital lobe. 3. Several nonspecific foci of increased signal throughout both cerebral hemispheres unchanged from the prior study 4. No significant postcontrast enhancement MRA Brain::No significant stenosis, occlusion, or aneurysm within the [place]. MRA Neck:No significant stenosis, occlusion, or aneurysm within the [place]. Carotid Doppler: 1. There is no sonographic evidence of hemodynamically significant stenosis in the right or left carotid arterial system. 2. Antegrade flow is shown in the vertebral arteries. ECHO: * Mass seen on anterior mitral leaflet suggestive of vegetation. * The vegetation measures 2.3 cm across. * There is trace mitral regurgitation. SANDIE::10/08/16 * Mobile vegetation on the anterior leaflet of the mitral valve measuring 1.3 by 1.9 cm. * There is trace mitral regurgitation. ASSESSMENT & PLAN: Hemoptysis with H/O Idiopathic Pulmonary Embolism Was On Xarelto at home for PE S/P bronchoscopy on 10/04/16 - Bronchial washing: Normal bibi; No malignant cells seen on pathology Cultures:pending S/P Tranexamic acid and Xarelto discontinued -likely failure of Xarelto CTA:Negative for PE and Venous Doppler; Negative for DVT Appreciate Pulmonary input ANCA screen:pending Previous Hypercoagulable work up as below: antiphospholipid antibody syndrome RUDDY X2: Negative in past: Less likely SLE Appreciate Hematology input Continue IV heparin and Coumadin Appreciate Rheumatology input Repeat hypercoagulable work up pending Plan to treat with prednisone taper if pleuritic pain persists No more Hemoptysis and clinically better Infective Endocarditis with findings of vegetation Anterior mitral leaflet suggestive of vegetation on ECHO Continue IV vancomycin and ceftriaxone Follow up blood cultures-negative ID consulted-appreciate Input SANDIE:: * Mobile vegetation on the anterior leaflet of the mitral valve measuring 1.3 by 1.9 cm. * There is trace mitral regurgitation. Subacute infarct medial left cerebellum Likely embolic origin from mitral valve vegetation Lipid panel:wnl ECHO:anterior mitral leaflet suggestive of vegetation Carotid Doppler:No significant stenosis Appreciate Neurology input Possible Atypical pneumonia: less likely afebrile, WBC:wnl S/P Levaquin for 4 days Saturating well on RA Oxygen PRN pleuritic chest pain improving Troponin X2 negative, EKG: no signs of ischemia Positive FOBT/Hematemesis: Denies any melena or noticing blood in stools On Xarelto at home which is held Appreciate GI input EGD on 09/1716: Gastritis Protonix BID for 2 weeks and then stop Stool for H.Pylori: Plan to treat if positive:pending OK from GI stand point to start anticoagulation:Discussed on 10/05/16 Thrombocytopenia: Likely secondary to acute illness Continue to monitor-improving H/O seizure disorder: stable Continue home meds H/O drug abuse: Patient denies IV drugs Drug screen positive for Marijuana DVT Px: On IV heparin, Coumadin Code Status: Full code Disposition: Continue to monitor Needs follow up with Rheumatology as outpatient: Needs follow up with Hematology Discussed with the parents Clinically better and Improving Vital Signs: Date Time Temp Pulse Resp B/P Pulse Ox O2 Delivery O2 Flow Rate FiO2 10/09/16 08:00 Room Air 10/09/16 07:32 36.3 67 20 111/55 97 Room Air 10/09/16 04:00 96 Room Air 10/09/16 03:14 36.5 68 15 99/53 96 Room Air 10/09/16 00:01 97 Room Air 10/09/16 00:01 36.8 70 18 112/46 97 Room Air 10/08/16 20:00 97 Room Air 10/08/16 19:35 36.6 69 17 131/54 97 Room Air 10/08/16 16:00 96 Room Air 10/08/16 15:00 36.4 82 17 116/42 96 Room Air 10/08/16 12:00 Room Air 10/08/16 12:00 36.7 10/08/16 11:10 92 22 153/88 93 2.0 10/08/16 11:05 89 18 159/89 98 2.0 10/08/16 11:00 70 12 148/72 96 2.0 10/08/16 10:57 79 15 150/90 97 2.0 Lab Results: Results Past 24 Hours Test 10/09/16 07:10 10/09/16 07:11 10/09/16 09:26 Range/Units White Blood Count 7.09 4.8-10.8 K/uL Red Blood Count 4.43 4.7-6.1 M/uL Hemoglobin 13.4 14.0-18.0 g/dL Hematocrit 36.3 42-52 % Mean Corpuscular Volume 81.9 80-100 fL Mean Corpuscular Hemoglobin 30.2 25-34 pg Mean Corpuscular Hemoglobin Concent 36.9 32-36 g/dl Platelet Count 105 130-400 K/uL Mean Platelet Volume 10.7 7.4-10.4 fL Neutrophils (%) (Auto) 67.5 % Lymphocytes (%) (Auto) 20.0 % Monocytes (%) (Auto) 7.1 % Eosinophils (%) (Auto) 4.7 % Basophils (%) (Auto) 0.4 % Neutrophils # (Auto) 4.79 1.4-6.5 K/uL Lymphocytes # (Auto) 1.42 1.2-3.4 K/uL Monocytes # (Auto) 0.50 0.11-0.59 K/uL Eosinophils # (Auto) 0.33 0-0.5 K/uL Basophils # (Auto) 0.03 0-0.2 K/uL RDW Standard Deviation 37.0 36.4-46.3 fL RDW Coefficient of Variation 12.5 11.5-14.5 % Immature Granulocyte % (Auto) 0.3 % Immature Granulocyte # (Auto) 0.02 0.00-0.02 K/uL Prothrombin Time 14.8 9.0-12.0 SECONDS Prothromb Time International Ratio 1.4 0.9-1.1 Activated Partial Thromboplast Time 55.8 21.0-31.0 SECONDS Partial Thromboplastin Ratio 2.1 Creatinine 1.30 0.60-1.40 mg/dl Est Creatinine Clear Calc Drug Dose 96.2 ml/min Estimated GFR () 87.9 Estimated GFR (Non- 75.8
--- NOTE | 2016-10-09 12:06 | CARDIOLOGY PROGRESS NOTE ---
DATE: 10/09/2016 DATE: 10/09/2016. FOLLOW-UP VISIT SUBJECTIVE: This is a 26-year-old male patient who approximately a year ago developed a seizure disorder and then in April 2016 had an unprovoked pulmonary emboli. The patient was on Xarelto and was admitted with dizziness and vertigo at which time he had hematemesis. The patient was worked up by the pulmonary service and GI service. He had a bronchoscopy that failed to show any etiology for hemoptysis it was worked up by the GI service and had an endoscopy that showed some gastritis. The patient had a neurology workup for the vertigo and an MRI of the brain suggested recent small embolic strokes. As per the workup, he had an echocardiogram which shows vegetation on the anterior leaflet of the mitral valve. The patient has an unusual presentation for bacterial endocarditis without having fever, WBC elevation or increased sed rate. He is antiphospholipid antibody positive. He has had at least 2 ANAs that are negative but there may be a family history of lupus. Thus far, his blood cultures have been negative. He has remained afebrile on antibiotics and now he has been anticoagulated with heparin and has been started on Coumadin. Last evening he had some dizziness and had a repeat CAT scan of the brain which was unchanged. 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 We should continue heparin anticoagulation for at least 3 days after he reaches therapeutic INRs while on warfarin. OBJECTIVE: VITAL SIGNS: Blood pressure is 110/60, pulse is regular at 67. He is afebrile. HEAD, EYES, EARS, NOSE, AND THROAT: Normocephalic. Pupils are equal and reactive to light. Extraocular muscles are intact bilaterally. NECK: The neck veins are flat. Carotids have good upstrokes bilaterally without bruits. Thyroid is nonpalpable. RESPIRATORY: Breath sounds are equal bilaterally and clear to auscultation. CARDIOVASCULAR: Heart has a regular rhythm. Normal S1, S2. No S3, S4. No cardiac rubs or murmurs. GASTROINTESTINAL: Abdomen is soft, nontender without organomegaly. EXTREMITIES: Free of edema, digit clubbing, or cyanosis. NEUROLOGIC: Grossly intact. SKIN: Warm to touch. LYMPH NODES: Negative to palpation. LABORATORY DATA: INR is 2.1 today. Hemoglobin is 13.4. IMPRESSION: 1. Endocarditis with negative blood culture so far and a history of antiphospholipid antibody suggest Libman-Sacks endocarditis. 2. Embolic stroke. 3. Seizure disorder. RECOMMENDATIONS: All the specialist and the hospitalist help with this case is appreciated. For now he remains on anticoagulation as outlined above. We will repeat a transthoracic echocardiogram prior to his discharge to reevaluate the marantic endocarditis. He would be extremely high risk for any type of surgery such as open heart surgery to clean the valve off due to his hypercoagulable state and his best management is conservative with anticoagulation unless he has additional embolic events then there may be no option other than for him to go to surgery.
--- NOTE | 2016-10-09 14:24 | Pharmacy Progress Note ---
Pharmacy Antibiotic Prog Note Date of Service: Oct 09, 2016. Subjective: The patient is currently receiving Vancomycin 1600 mg mg IV every 10 hours for treatment of infective endocarditis. The patient is currently on day # 3 of IV therapy. Objective: Height (Feet): 5 Height (Inches): 7 Weight (Kilograms): 96.600 Levels: Item Value Date Time Vancomycin Level Trough 20.4 mcg/ml 10/09/16 0926 Lab Results (24hrs): Laboratory Tests Test 10/09/16 07:10 10/09/16 07:11 White Blood Count 7.09 K/uL Red Blood Count 4.43 M/uL Hemoglobin 13.4 g/dL Hematocrit 36.3 % Mean Corpuscular Volume 81.9 fL Mean Corpuscular Hemoglobin 30.2 pg Mean Corpuscular Hemoglobin Concent 36.9 g/dl Platelet Count 105 K/uL Mean Platelet Volume 10.7 fL Neutrophils (%) (Auto) 67.5 % Lymphocytes (%) (Auto) 20.0 % Monocytes (%) (Auto) 7.1 % Eosinophils (%) (Auto) 4.7 % Basophils (%) (Auto) 0.4 % Neutrophils # (Auto) 4.79 K/uL Lymphocytes # (Auto) 1.42 K/uL Monocytes # (Auto) 0.50 K/uL Eosinophils # (Auto) 0.33 K/uL Basophils # (Auto) 0.03 K/uL Creatinine 1.30 mg/dl Micro Results: Item Value Date Time Blood Culture - Preliminary Resulted 10/07/16 1441 Blood NO GROWTH TO DATE. Blood Culture - Preliminary Resulted 10/07/16 1433 Blood NO GROWTH TO DATE. RUN DATE: 10/06/16 [facility] LAB PAGE 1 RUN TIME: 809 Specimen Inquiry PATIENT: JANE SUTTON LOC: [facility] # : [id number] AGE/SX: 26/M ROOM: N283 REG : 10/03/[address]: Ilya Hoang MD : 1990 BED: 2 DIS : STATUS: ADM IN TLOC: SPEC #: [id number] ROCK: 10/04/16 STATUS: COMP REQ #: [id number] RECD: 10/04/[address]: Esteban Lepe MD SOURCE: [facility] WASH ENTR: 10/04/16-110[address] [facility] [address]: Mukesh Boyd M.D. SPDESC: [facility] Tawanda Prakash M.D. Patel, Nilesh A., M.D. Vangala, Satish K., MD ORDERED: [facility] CUL/SM Procedure Result Verified Site GRAM STAIN Final 10/04/16-1307 RESULT MODERATE POLYS FEW EPITHELIAL CELLS FEW MONONUCLEATED CELLS RARE BRONCHIAL EPITHELIAL CELLS FEW GRAM POSITIVE COCCI BRONCH WASH CULTURE Final 10/06/16-08 LIGHT NORMAL MONTSERRAT. Recent Pertinent Medications: Rocephin 2g IV every 24 hours (not a pharmacy consult) Assessment & Plan: Assessment 26 yr old male with [place] valve infective endocarditis. ECHO revealed a 2.3 cm vegetation on anterior mitral leaflet. SANDIE on 10/08 revealed trace mitral regurgitation and mobile vegetation on the anterior leaflet of the mitral valve Plan Vancomycin and Rocephin IV for treatment of endocarditis. Vancomycin IV dosing: * Trough level drawn at 1400 today was therapeutic at 20.4 mcg/mL. * Goal trough level estimate for endocarditis: ~ 20 mcg/mL. * Continue 1600 mg (16 mg/kg) IV every 10 hours. * Trough level has been ordered for to r/o drug accumulation. Pharmacy will continue to follow and will adjust dose/frequency as necessary. Thank you
--- NOTE | 2016-10-09 14:25 | Neurology Progress Notes ---
Neurology Progress Note Date of Service Oct 09, 2016. Natasha Brady is a 26 year old male PMH seizure disorder, past tobacco abuse, pulmonary embolism on Xarelto last April. he came into the hospital on due to vomiting, dizziness. 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 An MRI revealed a cerebellar stroke. A SANDIE was ordered and it was discovered he had a non infectious cardiac vegetation. He has been up walking with PT and states he is doing much better. His leg still feels a little weak. His mom has questions about the coumadin and diet. discussed just being constant with diet is important. denies CP, SOB, abdominal pain, N, V. he did have some ringing in his ears and was sent down for a CT head. There was no acute findings. Objective Date Time Temp Pulse Resp B/P Pulse Ox O2 Delivery O2 Flow Rate FiO2 10/09/16 12:00 Room Air 10/09/16 11:58 36.6 59 16 99/54 97 Room Air 10/09/16 08:00 Room Air 10/09/16 07:32 36.3 67 20 111/55 97 Room Air 10/09/16 04:00 96 Room Air 10/09/16 03:14 36.5 68 15 99/53 96 Room Air 10/09/16 00:01 97 Room Air 10/09/16 00:01 36.8 70 18 112/46 97 Room Air 10/08/16 20:00 97 Room Air 10/08/16 19:35 36.6 69 17 131/54 97 Room Air 10/08/16 16:00 96 Room Air 10/08/16 15:00 36.4 82 17 116/42 96 Room Air Last 24 Hours Test 10/09/16 07:10 10/09/16 07:11 10/09/16 09:26 White Blood Count 7.09 K/uL Red Blood Count 4.43 M/uL Hemoglobin 13.4 g/dL Hematocrit 36.3 % Mean Corpuscular Volume 81.9 fL Mean Corpuscular Hemoglobin 30.2 pg Mean Corpuscular Hemoglobin Concent 36.9 g/dl Platelet Count 105 K/uL Mean Platelet Volume 10.7 fL Neutrophils (%) (Auto) 67.5 % Lymphocytes (%) (Auto) 20.0 % Monocytes (%) (Auto) 7.1 % Eosinophils (%) (Auto) 4.7 % Basophils (%) (Auto) 0.4 % Neutrophils # (Auto) 4.79 K/uL Lymphocytes # (Auto) 1.42 K/uL Monocytes # (Auto) 0.50 K/uL Eosinophils # (Auto) 0.33 K/uL Basophils # (Auto) 0.03 K/uL RDW Standard Deviation 37.0 fL RDW Coefficient of Variation 12.5 % Immature Granulocyte % (Auto) 0.3 % Immature Granulocyte # (Auto) 0.02 K/uL Prothrombin Time 14.8 SECONDS Prothromb Time International Ratio 1.4 Activated Partial Thromboplast Time 55.8 SECONDS Partial Thromboplastin Ratio 2.1 Creatinine 1.30 mg/dl Est Creatinine Clear Calc Drug Dose 96.2 ml/min Estimated GFR () 87.9 Estimated GFR (Non- 75.8 Vancomycin Level Trough 20.4 mcg/ml Imaging: CT head-Left cerebellar hypodensity, consistent with the patient's known recent infarct No evidence of acute hemorrhage LE arterial doppler- Unremarkable Doppler arterial assessment of the right and left lower extremity. Exam: gen: alert NAD PERRL/ EOMI CV RRR lungs CTA finger to nose no bipass facial symmetry no pronator drift hip flex , plantar flex ext right 5/5, hip flex, plantar flex ext left 4/5 Current Inpatient Medications Medications (Trade) Dose Ordered Sig/Brianda Route Start Time Stop Time Status Last Admin Dose Admin Acetaminophen (Tylenol Tab) 650 mg Q4H PRN PO 10/03/16 07:00 11/02/16 06:59 10/09/16 07:28 650 MG Albuterol/ Ipratropium (Duoneb) 3 ml Q2R PRN INH 10/03/16 07:00 11/02/16 06:59 Benzonatate (Tessalon Perles Cap) 100 mg Q8H PRN PO 10/03/16 07:00 11/02/16 06:59 10/08/16 23:37 100 MG Morphine Sulfate (MoRPHine SULFATE INJ) 4 mg Q3H PRN IV 10/03/16 07:00 10/17/16 06:59 10/06/16 00:37 4 MG Oxycodone/ Acetaminophen (Percocet 5-325mg Tab) 1 tab Q6H PRN PO 10/03/16 07:00 10/17/16 06:59 10/07/16 23:51 1 TAB Lamotrigine (Lamictal Tab) 75 mg BID PO 10/03/16 09:00 11/02/16 08:59 10/09/16 07:30 75 MG Lamotrigine (Lamictal Tab) 200 mg BID PO 10/03/16 09:00 11/02/16 08:59 10/09/16 07:30 200 MG Levetiracetam (Keppra Tab) 500 mg BID PO 10/03/16 09:00 11/02/16 08:59 10/09/16 07:29 500 MG Ondansetron HCl 4 mg 4 mg Q6H PRN IV 10/03/16 07:00 11/02/16 06:59 10/09/16 10:03 4 MG Promethazine HCl 12.5 mg/Sodium Chloride 50.5 ml @ 204 mls/hr Q6H PRN IV 10/03/16 07:00 11/02/16 06:59 Lorazepam/Syringe (Ativan Inj/ Syringe) 1 ml @ 1 mls/min Q4H PRN IV 10/03/16 08:00 11/02/16 07:59 Pantoprazole Sodium 40 mg 40 mg BID PO 10/05/16 21:00 11/04/16 20:59 10/09/16 07:31 40 MG Heparin Sodium/ Dextrose (Heparin 25,000 Unit/500ml D5W) 500 ml @ 19 mls/hr Q24H PRN IV 10/05/16 19:30 11/04/16 19:29 Future hold 10/08/16 21:27 19 MLS/HR Aspirin (Ecotrin Tab) 81 mg QAM PO 10/08/16 09:00 11/07/16 08:59 10/09/16 07:29 81 MG Atorvastatin Calcium 40 mg 40 mg QAM PO 10/08/16 09:00 11/07/16 08:59 10/09/16 07:30 40 MG Ceftriaxone Sodium/Dextrose (Rocephin Inj/D5 50ml) 70 ml @ 100 mls/hr Q24H IV 10/07/16 15:00 11/18/16 14:59 10/08/16 15:00 100 MLS/HR Diphenhydramine HCl (Benadryl Syrup) 25 mg Q6H PRN PO 10/07/16 14:45 11/06/16 14:44 Vancomycin HCl (Consult) 1 ea UD PRN N/A 10/07/16 16:15 11/18/16 16:14 Warfarin Sodium 6 mg 6 mg DAILY@16 PO 10/08/16 16:00 11/07/16 15:59 10/08/16 17:16 6 MG Vancomycin HCl/ Sodium Chloride (Vancomycin Inj/ Nss 500ml) 532 ml @ 200 mls/hr Q10H IV 10/08/16 14:00 11/18/16 15:59 10/09/16 10:03 200 MLS/HR Impression 26 year old seizure disorder, PE with anti phos antibody positive and new onset cerebellar stroke Plan 1. continue Keppra 500 mg BID 2. continue lamictal 275 mg BID 3. seizure medications will be re addressed at next out patient visit 4. lamictal and keppra levels 5. LE arterial dopplers to r/o clots- no acute findings 6. coumadin started cardiology to advise 7. aspirin 81 mg started 8. PT/OT for discharge needs 9. seizure precautions and fall precautions I have seen and discussed above patient with Dr Uriah De La Rosa, neurology Improving daily minimal findigs today limited to clumsy left hand and with no significant dystaxia levels of aeds pending no changes for now and frankly at this point neurology really has not much more to offer as decisions re management rest with cardiology largely in terms of timing of discharge and follow up of the vegetation rheumatology may need to get involved as well in the future as immunosuppressants might need to be considered at some point particularly is this ends up being a definable lupus like entity will follow for now but may sign off soon with outpatient follow up of seizures and meds Uriah De La Rosa MD
[2016-10-09] MEDS: CEFTRIAXONE SOD INJ 2,000 MG in DEXTROSE 5% 50ML 50 ML IV SCH (14:31)
--- NOTE | 2016-10-09 15:48 | Medical Consult ---
Consultation Date of Consultation: Oct 08, 2016. Attending Physician: Ilya Hoang MD Reason for Consultation: Question of marantic endocarditis in the setting of antiphospholipid antibody syndrome with pulmonary embolus diagnosed in 04/2016. History of Present Illness Mr. Gilmore is a 26 year old male with history of unprovoked PE in 05/06. No peripheral DVT source noted at the time. He was on Xarelto prior to this hospitalization, which was held on admission for hemoptysis. Hypercoagulable workup at that time showed: Positive lupus anticoagulant and cardiolipin antibody IgG 61, cardiolipin IgM 19; B2 glycoprotein Ab IgM 25, B2 glycoprotein Ab IgG 57. Rest of the hypercoagulable work up was negative. He was admitted with cough and chest pain/pleurisy to [facility] on 10/03/16. 1 week prior to admission, he developed hemoptysis. He also had an upper respiratory type illness. His CT scan on 10/03/16 was negative for PE. Diffuse bilateral patchy parenchymal infiltrates versus atypical pulmonary edema and moderate mediastinal and hilar adenopathy. He was having left leg pain prior to admission. Venous doppler was negative for DVT in lower extremities. Hematology was consulted last week for guidance on anticoagulation in the setting of hemoptysis. Heparin was able to be started on 10/05/16 after holding Xarelto since 10/03/16 admission; he is now being bridge to Coumadin. He had bronchoscopy and no lesion or pathology identified. He had EGD for FOBT+ which showed gastritis; GI stated no CI to anticoagulation and patient started on PPI BID. HRheumatology was consulted for a concern of SLE, vasculitis. His RUDDY has been negative x 2 in the last 1 month so this would make SLE less likely. Rheum favors the patient to have primary APS. ANCA is negative and with normal bronchoscopy, vasculitis is unlikely. Neurology was consulted for headaches and vertigo that started just prior to hospitalization. 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 TTE has revealed mitral valve vegetation; cardiology has become involved therefore and has asked hematology to evaluate for marantic endocarditis. Further CVA work up with MRA of brain, neck, carotid US unrevealing for alternative cause for CVA. Blood cultures have been obtained and are negative. Of note, he has been on antibiotics for atypical pneumonia on admission with Levaquin, since has been changed for endocarditis coverage with vancomycin. Additional history obtained from the patient and his parents at bedside. He reports in late July/early August that he had an infected tooth for which he received amoxicillin and then had the tooth pulled. Otherwise, he does not report common risk factors for endocarditis including IV drug use or underlying heart valvulopathy. He did not have fever on admission or significant white count. 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 He reports no major change in his baseline health status today. He continues to have mild light sensitivity. He is not having headache. He states he has not had hemoptysis in about 12 hours. He continues to have cough, but this has improved. He does not have dyspnea. He reports a fair appetite. He has not had nausea, vomiting, bowel issues, bloody or black stools. Past Medical/Surgical History Medical Problems: (1) Abdominal pain Status: Acute (2) LOU (acute kidney injury) Status: Acute (3) Hematemesis Status: Acute (4) Hemoptysis Status: Acute (5) Hemoptysis Status: Acute (6) Left leg pain Status: Acute (7) Metabolic acidosis Status: Acute (8) Pleuritis Status: Acute (9) Recurrent seizures Status: Acute (10) Seizure Status: Acute (11) Vertigo Status: Acute (12) Vomiting Status: Acute Social History Smoking Status: Former Smoker Alcohol Use: occasionally Drug Use: marijuana Marital Status: single Housing Status: lives with family Occupation Status: employed, student Allergies Coded Allergies: Tramadol (Verified Allergy, Severe, SHORTNESS OF BREATH, 10/03/16) lowers seizure threshold Penicillins (Verified Allergy, Unknown, HIVES AND MILD WHEEZING, 10/07/16) Current Inpatient Medications Current Inpatient Medications Medications (Trade) Dose Ordered Sig/Brianda Route Start Time Stop Time Status Last Admin Dose Admin Acetaminophen (Tylenol Tab) 650 mg Q4H PRN PO 10/03/16 07:00 11/02/16 06:59 10/08/16 14:47 650 MG Albuterol/ Ipratropium (Duoneb) 3 ml Q2R PRN INH 10/03/16 07:00 11/02/16 06:59 Benzonatate (Tessalon Perles Cap) 100 mg Q8H PRN PO 10/03/16 07:00 11/02/16 06:59 10/07/16 20:20 100 MG Morphine Sulfate (MoRPHine SULFATE INJ) 4 mg Q3H PRN IV 10/03/16 07:00 10/17/16 06:59 10/06/16 00:37 4 MG Oxycodone/ Acetaminophen (Percocet 5-325mg Tab) 1 tab Q6H PRN PO 10/03/16 07:00 10/17/16 06:59 10/07/16 23:51 1 TAB Lamotrigine (Lamictal Tab) 75 mg BID PO 10/03/16 09:00 11/02/16 08:59 10/08/16 09:37 75 MG Lamotrigine (Lamictal Tab) 200 mg BID PO 10/03/16 09:00 11/02/16 08:59 10/08/16 09:37 200 MG Levetiracetam (Keppra Tab) 500 mg BID PO 10/03/16 09:00 11/02/16 08:59 10/08/16 09:37 500 MG Ondansetron HCl 4 mg 4 mg Q6H PRN IV 10/03/16 07:00 11/02/16 06:59 10/07/16 18:02 4 MG Promethazine HCl 12.5 mg/Sodium Chloride 50.5 ml @ 204 mls/hr Q6H PRN IV 10/03/16 07:00 11/02/16 06:59 Lorazepam/Syringe (Ativan Inj/ Syringe) 1 ml @ 1 mls/min Q4H PRN IV 10/03/16 08:00 11/02/16 07:59 Pantoprazole Sodium 40 mg 40 mg BID PO 10/05/16 21:00 11/04/16 20:59 10/08/16 09:37 40 MG Heparin Sodium/ Dextrose (Heparin 25,000 Unit/500ml D5W) 500 ml @ 19 mls/hr Q24H PRN IV 10/05/16 19:30 11/04/16 19:29 10/05/16 19:47 19 MLS/HR Aspirin (Ecotrin Tab) 81 mg QAM PO 10/08/16 09:00 11/07/16 08:59 3/20/17 09:37 81 MG Atorvastatin Calcium 40 mg 40 mg QAM PO 10/08/16 09:00 11/07/16 08:59 10/08/16 09:37 40 MG Ceftriaxone Sodium/Dextrose (Rocephin Inj/D5 50ml) 70 ml @ 100 mls/hr Q24H IV 10/07/16 15:00 11/18/16 14:59 10/08/16 15:00 100 MLS/HR Diphenhydramine HCl (Benadryl Syrup) 25 mg Q6H PRN PO 10/07/16 14:45 11/06/16 14:44 Vancomycin HCl (Consult) 1 ea UD PRN N/A 10/07/16 16:15 11/18/16 16:14 Warfarin Sodium 6 mg 6 mg DAILY@16 PO 10/08/16 16:00 11/07/16 15:59 10/08/16 17:16 6 MG Vancomycin HCl/ Sodium Chloride (Vancomycin Inj/ Nss 500ml) 532 ml @ 200 mls/hr Q10H IV 10/08/16 14:00 11/18/16 15:59 10/08/16 13:29 200 MLS/HR Review of Systems Constitutional: + fatigue, No chills, No fever, No sweats Eyes: + problem reported (photosensitivity) Respiratory: + cough, + hemoptysis, No shortness of breath Cardiovascular: No chest pain, No edema Abdomen: No GI bleeding, No constipation, No diarrhea, No nausea, No pain, No vomiting Musculoskeletal: No calf pain Hematologic / Lymphatic: + clotting problems (see HPI) Integumentary: No itch, No rash Physical Exam Date Time Temp Pulse Resp B/P Pulse Ox O2 Delivery O2 Flow Rate FiO2 10/08/16 16:00 96 Room Air 10/08/16 15:00 36.4 82 17 116/42 96 Room Air 10/08/16 12:00 Room Air 10/08/16 12:00 36.7 10/08/16 11:10 92 22 153/88 93 2.0 10/08/16 11:05 89 18 159/89 98 2.0 10/08/16 11:00 70 12 148/72 96 2.0 10/08/16 10:57 79 15 150/90 97 2.0 10/08/16 08:00 Room Air 10/08/16 07:39 36.6 77 18 140/71 96 Room Air 10/08/16 04:00 Room Air 10/08/16 04:00 36.6 70 15 117/60 97 Room Air 10/08/16 00:00 36.7 75 18 118/63 96 Room Air 10/08/16 00:00 Room Air 10/07/16 20:00 Room Air 10/07/16 19:31 36.7 81 22 113/62 96 Room Air General Appearance: WD/WN, no apparent distress ENT: hearing grossly normal Respiratory/Chest: lungs clear, normal breath sounds, no respiratory distress, no accessory muscle use Cardiovascular: regular rate, rhythm, no edema Abdomen/GI: non tender, soft, no organomegaly Extremities/Musculoskelatal: no calf tenderness, no pedal edema Neurologic/Psych: alert, normal mood/affect, oriented x 3 Skin: no rash Laboratory Results 10/06/16 20:21 10/07/16 05:31 Red Blood Count 4.18, Mean Corpuscular Volume 79.4, Mean Corpuscular Hemoglobin 29.7, Mean Corpuscular Hemoglobin Concent 37.3, Mean Platelet Volume 10.2, Neutrophils (%) (Auto) 71.9, Lymphocytes (%) (Auto) 16.2, Monocytes (%) (Auto) 8.1, Eosinophils (%) (Auto) 3.1, Basophils (%) (Auto) 0.4, Neutrophils # (Auto) 5.74, Lymphocytes # (Auto) 1.29, Monocytes # (Auto) 0.65, Eosinophils # (Auto) 0.25, Basophils # (Auto) 0.03 10/08/16 05:11 Red Blood Count 4.08, Mean Corpuscular Volume 81.6, Mean Corpuscular Hemoglobin 29.9, Mean Corpuscular Hemoglobin Concent 36.6, Mean Platelet Volume 10.8, Neutrophils (%) (Auto) 62.0, Lymphocytes (%) (Auto) 22.5, Monocytes (%) (Auto) 9.7, Eosinophils (%) (Auto) 5.1, Basophils (%) (Auto) 0.4, Neutrophils # (Auto) 4.13, Lymphocytes # (Auto) 1.50, Monocytes # (Auto) 0.65, Eosinophils # (Auto) 0.34, Basophils # (Auto) 0.03 10/09/16 07:10 Red Blood Count 4.43, Mean Corpuscular Volume 81.9, Mean Corpuscular Hemoglobin 30.2, Mean Corpuscular Hemoglobin Concent 36.9, Mean Platelet Volume 10.7, Neutrophils (%) (Auto) 67.5, Lymphocytes (%) (Auto) 20.0, Monocytes (%) (Auto) 7.1, Eosinophils (%) (Auto) 4.7, Basophils (%) (Auto) 0.4, Neutrophils # (Auto) 4.79, Lymphocytes # (Auto) 1.42, Monocytes # (Auto) 0.50, Eosinophils # (Auto) 0.33, Basophils # (Auto) 0.03 10/08/16 05:11 10/09/16 07:11 Test 10/07/16 05:31 10/08/16 05:11 10/09/16 07:10 10/09/16 07:11 White Blood Count 7.98 K/uL (4.8-10.8) 6.67 K/uL (4.8-10.8) 7.09 K/uL (4.8-10.8) Red Blood Count 4.18 M/uL (4.7-6.1) 4.08 M/uL (4.7-6.1) 4.43 M/uL (4.7-6.1) Hemoglobin 12.4 g/dL (14.0-18.0) 12.2 g/dL (14.0-18.0) 13.4 g/dL (14.0-18.0) Hematocrit 33.2 % (42-52) 33.3 % (42-52) 36.3 % (42-52) Mean Corpuscular Volume 79.4 fL (80-100) 81.6 fL (80-100) 81.9 fL (80-100) Mean Corpuscular Hemoglobin 29.7 pg (25-34) 29.9 pg (25-34) 30.2 pg (25-34) Mean Corpuscular Hemoglobin Concent 37.3 g/dl (32-36) 36.6 g/dl (32-36) 36.9 g/dl (32-36) Platelet Count 86 K/uL (130-400) 87 K/uL (130-400) 105 K/uL (130-400) Mean Platelet Volume 10.2 fL (7.4-10.4) 10.8 fL (7.4-10.4) 10.7 fL (7.4-10.4) Neutrophils (%) (Auto) 71.9 % 62.0 % 67.5 % Lymphocytes (%) (Auto) 16.2 % 22.5 % 20.0 % Monocytes (%) (Auto) 8.1 % 9.7 % 7.1 % Eosinophils (%) (Auto) 3.1 % 5.1 % 4.7 % Basophils (%) (Auto) 0.4 % 0.4 % 0.4 % Neutrophils # (Auto) 5.74 K/uL (1.4-6.5) 4.13 K/uL (1.4-6.5) 4.79 K/uL (1.4-6.5) Lymphocytes # (Auto) 1.29 K/uL (1.2-3.4) 1.50 K/uL (1.2-3.4) 1.42 K/uL (1.2-3.4) Monocytes # (Auto) 0.65 K/uL (0.11-0.59) 0.65 K/uL (0.11-0.59) 0.50 K/uL (0.11-0.59) Eosinophils # (Auto) 0.25 K/uL (0-0.5) 0.34 K/uL (0-0.5) 0.33 K/uL (0-0.5) Basophils # (Auto) 0.03 K/uL (0-0.2) 0.03 K/uL (0-0.2) 0.03 K/uL (0-0.2) RDW Standard Deviation 34.6 fL (36.4-46.3) 35.9 fL (36.4-46.3) 37.0 fL (36.4-46.3) RDW Coefficient of Variation 12.0 % (11.5-14.5) 12.3 % (11.5-14.5) 12.5 % (11.5-14.5) Immature Granulocyte % (Auto) 0.3 % 0.3 % 0.3 % Immature Granulocyte # (Auto) 0.02 K/uL (0.00-0.02) 0.02 K/uL (0.00-0.02) 0.02 K/uL (0.00-0.02) Prothrombin Time 12.4 SECONDS (9.0-12.0) 12.8 SECONDS (9.0-12.0) 14.8 SECONDS (9.0-12.0) Prothromb Time International Ratio 1.2 (0.9-1.1) 1.2 (0.9-1.1) 1.4 (0.9-1.1) Activated Partial Thromboplast Time 49.5 SECONDS (21.0-31.0) 66.1 SECONDS (21.0-31.0) 55.8 SECONDS (21.0-31.0) Partial Thromboplastin Ratio 1.9 2.5 2.1 Est Creatinine Clear Calc Drug Dose 97.2 ml/min 96.2 ml/min Estimated GFR () 87.9 87.9 Estimated GFR (Non- 75.8 75.8 Triglycerides Level 98 mg/dl (0-150) Cholesterol Level 156 mg/dl (0-200) HDL Cholesterol 34 mg/dl LDL Cholesterol, Calculated 102 mg/dl VLDL Cholesterol, Calculated 20 mg/dl Cholesterol/HDL Ratio 4.6 Test 10/09/16 09:26 Vancomycin Level Trough 20.4 mcg/ml (SEE COMMENT) CTA from 10/03/2016: No evidence for pulmonary embolus. No significant pleural effusion. Pulmonary vasculature in hands is appropriately. Moderate mediastinal and hilar adenopathy. Parenchymal infiltrates scattered throughout both hemithoraces versus atypical pulmonary edematous changes. Head CT from 10/03/2016: No acute intracranial abnormality. CT of the abdomen/pelvis from 10/03/2016: Bibasilar parenchymal infiltrative change. Liver, spleen and pancreas unremarkable. Kidneys negative for hydronephrosis. No significant abdominal, pelvic or inguinal adenopathy. Venous Dopplers from 10/03/2016: No evidence of deep venous thrombus within the bilateral lower extremities. Carotid ultrasound from 10/07/16: No sonographic evidence of hemodynamically significant stenosis in the right or left carotid arterial system. Brain MRI from 10/07/16: Subacute infarct medial aspect of the left cerebellum measuring 12 x 9 millimeter. Punctate foci of subacute ischemic change noted within superior mid left cerebellum as well as additional punctate focus within the left posterior occipital lobe. These are identified as subacute multifocal infarcts. Small focus of telangiectasia of the right periventricular region which is unaltered.Neck MRA from 10/08/16: Unremarkable. Head MRA from 10/08/2016: No significant stenosis, occlusion or aneurysm within the [place]. Lower extremity US from 10/08/16: Unremarkable Doppler arterial assessment of the right and left lower extremity. Head CT from 10/08/2016: Left cerebellar hypodensity, consistent with patient ' s known recent infarct. No evidence of acute hemorrhage. Assessment & Plan 1. 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 He did have a tooth extracted about 4-6 weeks ago in setting of infection, otherwise does not report typical RFs for IE. Defer concern for infectious endocarditis to cardiology, or even ID if necessary. The patient is favored to have antiphospholipid antibody syndrome as demonstrated with labs when he was diagnosed with unprovoked PE in 04/2016 with no peripheral source. Repeat APS assays are pending at this time to confirm. He was on Xarelto up until this admission when he presented with hemoptysis and may have had atypical pneumonia. He was off Xarelto from 10/03/16 to 10/05/16 when heparin gtt was able to be started. He is now on a bridge to Coumadin. Dr. Erickson spoke with Dr. Dyson today and made recommendations to have INR at 2.5-3 and PTT between 65-80. Marantic endocarditis is considered rare, but is typically seen in advanced cancer, SLE, rheumatic heart disease, RA, antiphospholipid Ab syndrome. Patient has been evaluated by rheumatology and a rheumatologic disorder such as SLE is not favored given testing to date. In light of his antiphospholipid Ab syndrome , the treatment for marantic endocarditis would be indefinite anticoagulation given the high risk of recurrent embolization. LWMH is favored over agents such as Coumadin even, but if patient is to have intermediate project manager survival, which is likely in this patient, Coumadin can be used. Agents such as Xarelto are not indicated. 2. Antiphosphlipid antibody syndrome- see above 3. Prior history of PE in 04/2016- see above 4. Thrombocytopenia- improving. Attending Note Patient seen and examined and I discussed with Deena Perez PA-C. I also discussed with Dr Dyson earlier today. I also spoke with Dr Gonzales I discussed with the patient and his father at bedside S: Feels good today. He denies any hemoptysis or shortness of breath or headache or dizziness or chest pain or melena or hematochezia or any bleeding symptoms. He denies any abdominal pain or flank pain Gen: Awake and alert NAD A+OX3 HEENT: anicteric, no pallor Lungs: CTAB CV: S1 S2 RRR Abd: +BS soft NT/ND no guarding or rebound, no palpable organomegaly Ext: no edema or cyanosis, nontender Labs: reviewed Lupus anticoagulant and cardiolipin antibodies pending Echo: mobile vegetation anterior leaflet of mitral valve Bronchial washing - alveolar macrophages and neutrophils, no malignant cells CT head left cerebellar hypodensity consistent with known recent infarct, no acute hemorrhage MRI brain: subacute 12x9mm infarct left medial cerebellum Impression: 26 year old male with history of unprovoked PE was on xarelto, admitted with hemoptysis and dizziness, found to have subacute infarct left cerebellum and echo positive for vegetation anterior leaflet mitral valve. Agree with check cultures and rule out any infection As he had a positive lupus anticoagulant and cardiolipin Ab when he had the PE, he most likely has antiphospholipid antibody syndrome. Repeat Lupus anticoagulant and cardiolipin antibodies are pending. Recommend anticoagulation with heparin gtt - monitor closely and recommend keep PTT 65 to 80 range. Transition to coumadin for INR goal 2.5 to 3 - coumadin this should be overlapped with heparin gtt for 5 days and ensure INR remain therapeutic before discontinuing heparin gtt. He requires lifelong anticoagulation. I discussed with the patient alternative of lovenox but he is not keen on that as he does not want to do injections and does not feel he could continue that senior living. We recommend heparin and transition to coumadin for this patient for antiphospholipid antibody syndrome as heparin and coumadin have the most intermediate project manager follow up experience in this syndrome. I discussed with the patient regarding adherence with his anticoagulation and that he will need to have frequent monitoring at least weekly for his INR to ensure therapeutic ranges. Also discussed with him to report any symptoms of dizziness or headache or bleeding or change in condition and avoid any trauma or injury. Recommend nutrition as well to review with him further regarding the dietary concerns on coumadin.
[2016-10-09] MEDS: WARFARIN SOD 6 MG TAB PO SCH (16:28)
[2016-10-10] VITALS (9 sets, daily range): BP systolic 107–131; BP diastolic 55–69; PULSE 62–76; TEMP 36.4–37.1; O2SAT 93–99
[2016-10-10] MEDS ORDERED: LORAZEPAM 2 MG/ML 1 ML VIAL IV PRN (04:15)
[2016-10-10] MEDS: HEPARIN 25,000 UNIT/500ML D5W 500 ML IV PRN (04:35)
[2016-10-10 05:37] LABS: BASO % 0.6 %; BASO ABS # 0.04 K/uL (0-0.2); COMPLETE YES; EOS % 4.8 %; HEMATOCRIT 33.9 % (42-52); IG% 0.3 %; LYMPH % 21.5 %; LYMPH ABS # 1.43 K/uL (1.2-3.4); MEAN CELL VOLUME 80.1 fL (80-100); MEAN CORPUSCULAR HEMOGLOBIN 29.3 pg (25-34); MEAN CORPUSCULAR HGB CONC 36.6 g/dl (32-36); MEAN PLATELET VOLUME 10.3 fL (7.4-10.4); NEUT % 63.8 %; PLATELET COUNT 107 K/uL (130-400); RED BLOOD COUNT 4.23 M/uL (4.7-6.1); WHITE BLOOD COUNT 6.64 K/uL (4.8-10.8)
[2016-10-10 06:09] LABS: INR 1.4 (0.9-1.1)
[2016-10-10 06:10] LABS: CREATININE 1.3 mg/dl (0.60-1.40)
[2016-10-10] MEDS: VANCOMYCIN INJ 1,600 MG in SODIUM CHLORIDE 0.9% 500ML 500 ML IV SCH ×2 (06:13→15:59)
--- NOTE | 2016-10-10 09:22 | PROGRESS NOTE ---
DATE: 10/10/2016 SUBJECTIVE: The patient is a 26-year-old male with a history of Libman-Sacks endocarditis. The hematology note is greatly appreciated. His heparin has been increased and we will allow his INR to be at least 2.5 before we would consider stopping the heparin. Today, his INR is 1.4 and we will increase his warfarin from 6 mg daily to 10 mg daily. Otherwise, he has had an uneventful night. OBJECTIVE: GENERAL: He is alert and oriented, in no acute distress. VITAL SIGNS: Blood pressure is 113/55. Pulse is regular at 62. He is afebrile. HEENT: He is normocephalic. Pupils are equal and reactive to light. Extraocular muscles are intact bilaterally. NECK: The neck veins are flat. Carotids have good upstrokes bilaterally without bruits. Thyroid is nonpalpable. RESPIRATORY: Breath sounds are equal bilaterally and clear to auscultation. CARDIOVASCULAR: Heart has a regular rhythm. Normal S1 and S2. No S3 or S4. No cardiac rubs or murmurs. GASTROINTESTINAL: Abdomen is soft, nontender, without organomegaly. EXTREMITIES: Free of edema, digit clubbing, or cyanosis. NEUROLOGIC: Grossly intact. SKIN: Warm to touch. LYMPH NODES: Negative to palpation. LABORATORY DATA: Hemoglobin is 12.4, WBC count 6.6. INR is 1.4. IMPRESSION: 1. Libman-Sacks endocarditis. 2. Antiphospholipid antibody syndrome. 3. Embolic stroke. 4. Seizure disorder. RECOMMENDATIONS: As outlined above, we will increase his warfarin today and try to achieve an INR between 2.5 and 3. In regard to his antibiotics, that will be up to infectious disease; however, his blood cultures have been negative to date.
[2016-10-10] MEDS: ASPIRIN 81 MG ECTAB PO SCH (09:52)
[2016-10-10] MEDS: LEVETIRACETAM 500 MG TAB PO SCH ×2 (09:52→19:52)
[2016-10-10] MEDS: ATORVASTATIN 40 MG TAB PO SCH (09:52)
[2016-10-10] MEDS: PANTOprazole SOD 40 MG TAB PO SCH ×2 (09:53→19:51)
[2016-10-10 12:08] LABS: PARTIAL THROMBOPLASTIN RATIO 2.3
--- NOTE | 2016-10-10 14:55 | Neurology Progress Notes ---
Neurology Progress Note Date of Service Oct 10, 2016. Natasha Brady is a 26 year old male PMH seizure disorder, past tobacco abuse, pulmonary embolism on Xarelto last April. he came into the hospital on due to vomiting, dizziness. 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 An MRI revealed a cerebellar stroke. A SANDIE was ordered and it was discovered he had a non infectious cardiac vegetation. He has been up walking with PT and states he is doing much better. His leg still feels a little weak. His mom has questions about the coumadin and diet. discussed just being constant with diet is important. last night at 4a he had an aura which he states he was very fearful but he's not sure what he was afraid of. he rang the call bahena the nursing gave him Ativan 0.5 mg. he did not have a seizure. he does feel his left leg is getting stronger. denies CP, SOB, abdominal pain, N, V. Objective Date Time Temp Pulse Resp B/P Pulse Ox O2 Delivery O2 Flow Rate FiO2 10/10/16 12:00 Room Air 10/10/16 11:27 36.4 64 12 116/63 98 Room Air 10/10/16 08:18 Room Air 10/10/16 08:00 Room Air 10/10/16 07:13 36.6 62 20 113/55 97 Room Air 10/10/16 04:00 96 Room Air 10/10/16 03:35 36.6 66 18 107/57 96 Room Air 10/10/16 00:01 96 Room Air 10/09/16 22:56 36.7 70 18 109/48 96 Room Air 10/09/16 20:00 96 Room Air 10/09/16 19:50 36.6 68 16 110/61 96 Room Air 10/09/16 16:00 Room Air Last 24 Hours Test 10/10/16 05:18 10/10/16 11:30 White Blood Count 6.64 K/uL Red Blood Count 4.23 M/uL Hemoglobin 12.4 g/dL Hematocrit 33.9 % Mean Corpuscular Volume 80.1 fL Mean Corpuscular Hemoglobin 29.3 pg Mean Corpuscular Hemoglobin Concent 36.6 g/dl Platelet Count 107 K/uL Mean Platelet Volume 10.3 fL Neutrophils (%) (Auto) 63.8 % Lymphocytes (%) (Auto) 21.5 % Monocytes (%) (Auto) 9.0 % Eosinophils (%) (Auto) 4.8 % Basophils (%) (Auto) 0.6 % Neutrophils # (Auto) 4.23 K/uL Lymphocytes # (Auto) 1.43 K/uL Monocytes # (Auto) 0.60 K/uL Eosinophils # (Auto) 0.32 K/uL Basophils # (Auto) 0.04 K/uL RDW Standard Deviation 35.9 fL RDW Coefficient of Variation 12.4 % Immature Granulocyte % (Auto) 0.3 % Immature Granulocyte # (Auto) 0.02 K/uL Prothrombin Time 15.0 SECONDS Prothromb Time International Ratio 1.4 Activated Partial Thromboplast Time 52.1 SECONDS 59.4 SECONDS Partial Thromboplastin Ratio 2.0 2.3 Creatinine 1.30 mg/dl Est Creatinine Clear Calc Drug Dose 96.2 ml/min Estimated GFR () 87.9 Estimated GFR (Non- 75.8 Imaging: no new imaging Exam: gen: alert NAD lungs CTA CV RRR moves in bed sits up and stands without assistance Current Inpatient Medications Medications (Trade) Dose Ordered Sig/Brianda Route Start Time Stop Time Status Last Admin Dose Admin Acetaminophen (Tylenol Tab) 650 mg Q4H PRN PO 10/03/16 07:00 11/02/16 06:59 10/09/16 23:11 650 MG Albuterol/ Ipratropium (Duoneb) 3 ml Q2R PRN INH 10/03/16 07:00 11/02/16 06:59 Benzonatate (Tessalon Perles Cap) 100 mg Q8H PRN PO 10/03/16 07:00 11/02/16 06:59 10/08/16 23:37 100 MG Morphine Sulfate (MoRPHine SULFATE INJ) 4 mg Q3H PRN IV 10/03/16 07:00 10/17/16 06:59 10/06/16 00:37 4 MG Oxycodone/ Acetaminophen (Percocet 5-325mg Tab) 1 tab Q6H PRN PO 10/03/16 07:00 10/17/16 06:59 10/07/16 23:51 1 TAB Lamotrigine (Lamictal Tab) 75 mg BID PO 10/03/16 09:00 11/02/16 08:59 10/10/16 09:52 75 MG Lamotrigine (Lamictal Tab) 200 mg BID PO 10/03/16 09:00 11/02/16 08:59 10/10/16 09:53 200 MG Levetiracetam (Keppra Tab) 500 mg BID PO 10/03/16 09:00 11/02/16 08:59 10/10/16 09:52 500 MG Ondansetron HCl 4 mg 4 mg Q6H PRN IV 10/03/16 07:00 11/02/16 06:59 10/09/16 10:03 4 MG Promethazine HCl 12.5 mg/Sodium Chloride 50.5 ml @ 204 mls/hr Q6H PRN IV 10/03/16 07:00 11/02/16 06:59 Lorazepam/Syringe (Ativan Inj/ Syringe) 1 ml @ 1 mls/min Q4H PRN IV 10/03/16 08:00 11/02/16 07:59 10/10/16 04:10 1 MLS/MIN Pantoprazole Sodium 40 mg 40 mg BID PO 10/05/16 21:00 11/04/16 20:59 10/10/16 09:53 40 MG Heparin Sodium/ Dextrose (Heparin 25,000 Unit/500ml D5W) 500 ml @ 21 mls/hr [id number] PRN IV 10/05/16 19:30 11/09/16 19:29 Future hold 10/10/16 04:35 19 MLS/HR Aspirin (Ecotrin Tab) 81 mg QAM PO 10/08/16 09:00 11/07/16 08:59 10/10/16 09:52 81 MG Atorvastatin Calcium 40 mg 40 mg QAM PO 10/08/16 09:00 11/07/16 08:59 10/10/16 09:52 40 MG Ceftriaxone Sodium/Dextrose (Rocephin Inj/D5 50ml) 70 ml @ 100 mls/hr Q24H IV 10/07/16 15:00 11/18/16 14:59 10/09/16 14:31 100 MLS/HR Diphenhydramine HCl (Benadryl Syrup) 25 mg Q6H PRN PO 10/07/16 14:45 11/06/16 14:44 Vancomycin HCl 1 ea 1 ea UD PRN N/A 10/07/16 16:15 11/18/16 16:14 Vancomycin HCl/ Sodium Chloride (Vancomycin Inj/ Nss 500ml) 532 ml @ 200 mls/hr Q10H IV 10/08/16 14:00 11/18/16 15:59 10/10/16 06:13 200 MLS/HR Lorazepam (Ativan Inj) 0.5 mg Q4H PRN IV 10/10/16 04:15 11/09/16 04:14 Warfarin Sodium (Coumadin Tab) 10 mg DAILY@16 PO 10/10/16 16:00 11/09/16 15:59 Impression 26 year old seizure disorder, PE with anti phos antibody positive and new onset cerebellar stroke Plan 1. continue Keppra 500 mg BID 2. continue lamictal 275 mg BID 3. seizure medications will be re addressed at next out patient visit 4. lamictal and keppra levels - ordered and pending 5. LE arterial dopplers to r/o clots- no acute findings 6. coumadin started cardiology to advise 7. aspirin 81 mg started 8. PT/OT for discharge needs 9. seizure precautions and fall precautions 10. will need to watch for any seizure activity unsure what the event was last night. levels pending. I have seen and discussed above patient with Dr Uriah De La Rosa, neurology Improving daily discharge not yet clear will depend upon the echo evaluations and cardiology clearance from our aspect onlty the seizure disorder will need addressed and levels still pending will need follow up in my clinic in 4-6 weeks mother will call to arrange and we will sign off for now no changes in lamictal or keppra doses at this time Uriah De La Rosa MD
--- NOTE | 2016-10-10 15:13 | Progress Note ---
Internal Med Progress Note Date of Service: Oct 10, 2016. Provider Documentation: SUBJECTIVE: The patient was seen and examined Has had some Aura last night No other symptos OBJECTIVE: Vital Signs-as noted below Exam: General-no distress at rest Eyes-normal ENT-normal Neck-supple Lungs-clear to ausucltate bilaterally Heart-Regular,no murmur Abdomen-Benign,no masses,bowel sound present Extremities-No edema Neuro-AAOx3 Lab data as noted below. PROCEDURES: CTA: 1. Study is negative for significant pulmonary embolus. 2. Diffuse bilateral patchy parenchymal infiltrates versus atypical pulmonary edema. 3. Moderate mediastinal and hilar adenopathy CT head: No acute intracranial abnormality. Repeat CT 10/08/16:1. Left cerebellar hypodensity, consistent with the patient' s known recent infarct 2. No evidence of acute hemorrhage. CT ABD: Bibasilar parenchymal infiltrates. Otherwise negative abdomen and pelvis Venous Doppler: No evidence of deep venous thrombus within the bilateral lower extremities. Previous Hypercoagulable work up: Homocystine: 9.3 (within normal limits) Anticardiolipin Ig (<=14) Anti-cardiolipin IgM: antibody: 19 (<=12) Anticardiolipin IgA: <11 (WNL) Anti-beta 2 glycoprotein Ig (greater than 20) Anti-beta-2 glycoprotein IgM: 25 (greater than 20) anti-beta-2 glycoprotein IgA: <9 (within normal limits) Prothrombin gene mutation: [id number] mutation not detected Antithrombin III activity: 109% (within normal limits) Protein C activity: 131% (within normal limits) Protein S activity: 85% (within normal limits) Factor V Leiden mutation: Not detected LUNG, RIGHT MIDDLE LOBE, BRONCHIAL WASHINGS: 1. ALVEOLAR MACROPHAGES AND NEUTROPHILS. SEE COMMENT. 2. NO MALIGNANT CELLS SEEN. MRI Brain: 1. 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 2. Additional foci of subacute ischemic change central left cerebellum and left occipital lobe. 3. Several nonspecific foci of increased signal throughout both cerebral hemispheres unchanged from the prior study 4. No significant postcontrast enhancement MRA Brain::No significant stenosis, occlusion, or aneurysm within the ka[place] of [place]. MRA Neck:No significant stenosis, occlusion, or aneurysm within the [place] of [place]. Carotid Doppler: 1. There is no sonographic evidence of hemodynamically significant stenosis in the right or left carotid arterial system. 2. Antegrade flow is shown in the vertebral arteries. ECHO: * Mass seen on anterior mitral leaflet suggestive of vegetation. * The vegetation measures 2.3 cm across. * There is trace mitral regurgitation. SANDIE::10/08/16 * Mobile vegetation on the anterior leaflet of the mitral valve measuring 1.3 by 1.9 cm. * There is trace mitral regurgitation. ASSESSMENT & PLAN: Hemoptysis with H/O Idiopathic Pulmonary Embolism Was On Xarelto at home for PE S/P bronchoscopy on 10/04/16 - Bronchial washing: Normal bibi; No malignant cells seen on pathology Cultures:pending S/P Tranexamic acid and Xarelto discontinued -likely failure of Xarelto CTA:Negative for PE and Venous Doppler; Negative for DVT Appreciate Pulmonary input ANCA screen:pending Previous Hypercoagulable work up as below: antiphospholipid antibody syndrome RUDDY X2: Negative in past: Less likely SLE Appreciate Hematology input Continue IV heparin and Coumadin Appreciate Rheumatology input Repeat hypercoagulable work up pending Plan to treat with prednisone taper if pleuritic pain persists No more Hemoptysis and clinically better again today Plan to keep PTT ~2.5 and INR 2.5 to 3.0 Increase dose of Coumadin to 10 mg daily Infective Endocarditis with findings of vegetation Anterior mitral leaflet suggestive of vegetation on ECHO Continue IV vancomycin and ceftriaxone Follow up blood cultures-negative ID consulted-appreciate Input SANDIE:: * Mobile vegetation on the anterior leaflet of the mitral valve measuring 1.3 by 1.9 cm. * There is trace mitral regurgitation. No more SANDIE now Subacute infarct medial left cerebellum Likely embolic origin from mitral valve vegetation Lipid panel:wnl ECHO:anterior mitral leaflet suggestive of vegetation Carotid Doppler:No significant stenosis Appreciate Neurology input Possible Atypical pneumonia: less likely afebrile, WBC:wnl S/P Levaquin for 4 days Saturating well on RA Oxygen PRN pleuritic chest pain improving Troponin X2 negative, EKG: no signs of ischemia Positive FOBT/Hematemesis: Denies any melena or noticing blood in stools On Xarelto at home which is held Appreciate GI input EGD on 09/1716: Gastritis Protonix BID for 2 weeks and then stop Stool for H.Pylori: Plan to treat if positive:pending OK from GI stand point to start anticoagulation:Discussed on 10/05/16 Thrombocytopenia: Likely secondary to acute illness Continue to monitor-improving H/O seizure disorder: stable Continue home meds H/O drug abuse: Patient denies IV drugs Drug screen positive for Marijuana DVT Px: On IV heparin, Coumadin Code Status: Full code Disposition: Continue to monitor Needs follow up with Rheumatology as outpatient: Needs follow up with Hematology Discussed with the parents again today Clinically better and Improving Vital Signs: Date Time Temp Pulse Resp B/P Pulse Ox O2 Delivery O2 Flow Rate FiO2 10/10/16 12:00 Room Air 10/10/16 11:27 36.4 64 12 116/63 98 Room Air 10/10/16 08:18 Room Air 10/10/16 08:00 Room Air 10/10/16 07:13 36.6 62 20 113/55 97 Room Air 10/10/16 04:00 96 Room Air 10/10/16 03:35 36.6 66 18 107/57 96 Room Air 10/10/16 00:01 96 Room Air 10/09/16 22:56 36.7 70 18 109/48 96 Room Air 10/09/16 20:00 96 Room Air 10/09/16 19:50 36.6 68 16 110/61 96 Room Air 10/09/16 16:00 Room Air Lab Results: Results Past 24 Hours Test 10/10/16 05:18 10/10/16 11:30 Range/Units White Blood Count 6.64 4.8-10.8 K/uL Red Blood Count 4.23 4.7-6.1 M/uL Hemoglobin 12.4 14.0-18.0 g/dL Hematocrit 33.9 42-52 % Mean Corpuscular Volume 80.1 80-100 fL Mean Corpuscular Hemoglobin 29.3 25-34 pg Mean Corpuscular Hemoglobin Concent 36.6 32-36 g/dl Platelet Count 107 130-400 K/uL Mean Platelet Volume 10.3 7.4-10.4 fL Neutrophils (%) (Auto) 63.8 % Lymphocytes (%) (Auto) 21.5 % Monocytes (%) (Auto) 9.0 % Eosinophils (%) (Auto) 4.8 % Basophils (%) (Auto) 0.6 % Neutrophils # (Auto) 4.23 1.4-6.5 K/uL Lymphocytes # (Auto) 1.43 1.2-3.4 K/uL Monocytes # (Auto) 0.60 0.11-0.59 K/uL Eosinophils # (Auto) 0.32 0-0.5 K/uL Basophils # (Auto) 0.04 0-0.2 K/uL RDW Standard Deviation 35.9 36.4-46.3 fL RDW Coefficient of Variation 12.4 11.5-14.5 % Immature Granulocyte % (Auto) 0.3 % Immature Granulocyte # (Auto) 0.02 0.00-0.02 K/uL Prothrombin Time 15.0 9.0-12.0 SECONDS Prothromb Time International Ratio 1.4 0.9-1.1 Activated Partial Thromboplast Time 52.1 59.4 21.0-31.0 SECONDS Partial Thromboplastin Ratio 2.0 2.3 Creatinine 1.30 0.60-1.40 mg/dl Est Creatinine Clear Calc Drug Dose 96.2 ml/min Estimated GFR () 87.9 Estimated GFR (Non- 75.8
[2016-10-10] MEDS: CEFTRIAXONE SOD INJ 2,000 MG in DEXTROSE 5% 50ML 50 ML IV SCH (15:59)
[2016-10-10] MEDS: WARFARIN SOD 10 MG TAB PO SCH (16:00)
[2016-10-10] MEDS: ACETAMINOPHEN 325 MG TAB PO PRN (16:06)
--- NOTE | 2016-10-10 21:47 | Infectious Disease Progress Nt ---
Progress Note Date of Service Oct 10, 2016. Subjective Pt evaluation today including: conversation w/ patient, conversation w/ family , physical exam, chart review, lab review, review of studies, conversation w/ polymer materials consultant, review of inpatient medication list patient with apparent oral last night, no obvious seizure activity. Otherwise offers no new complaints. Remains afebrile. Blood cultures are negative to date. All Other Systems: Reviewed and Negative Medications Current Inpatient Medications Medications (Trade) Dose Ordered Sig/Brianda Route Start Time Stop Time Status Last Admin Dose Admin Acetaminophen (Tylenol Tab) 650 mg Q4H PRN PO 10/03/16 07:00 11/02/16 06:59 10/10/16 16:06 650 MG Albuterol/ Ipratropium (Duoneb) 3 ml Q2R PRN INH 10/03/16 07:00 11/02/16 06:59 Benzonatate (Tessalon Perles Cap) 100 mg Q8H PRN PO 10/03/16 07:00 11/02/16 06:59 10/08/16 23:37 100 MG Morphine Sulfate (MoRPHine SULFATE INJ) 4 mg Q3H PRN IV 10/03/16 07:00 10/17/16 06:59 10/06/16 00:37 4 MG Oxycodone/ Acetaminophen (Percocet 5-325mg Tab) 1 tab Q6H PRN PO 10/03/16 07:00 10/17/16 06:59 10/07/16 23:51 1 TAB Lamotrigine (Lamictal Tab) 75 mg BID PO 10/03/16 09:00 11/02/16 08:59 10/10/16 19:52 75 MG Lamotrigine (Lamictal Tab) 200 mg BID PO 10/03/16 09:00 11/02/16 08:59 10/10/16 19:52 200 MG Levetiracetam (Keppra Tab) 500 mg BID PO 10/03/16 09:00 11/02/16 08:59 10/10/16 19:52 500 MG Ondansetron HCl 4 mg 4 mg Q6H PRN IV 10/03/16 07:00 11/02/16 06:59 10/09/16 10:03 4 MG Promethazine HCl 12.5 mg/Sodium Chloride 50.5 ml @ 204 mls/hr Q6H PRN IV 10/03/16 07:00 11/02/16 06:59 Lorazepam/Syringe (Ativan Inj/ Syringe) 1 ml @ 1 mls/min Q4H PRN IV 10/03/16 08:00 11/02/16 07:59 10/10/16 04:10 1 MLS/MIN Pantoprazole Sodium 40 mg 40 mg BID PO 10/05/16 21:00 11/04/16 20:59 10/10/16 19:51 40 MG Heparin Sodium/ Dextrose (Heparin 25,000 Unit/500ml D5W) 500 ml @ 21 mls/hr [id number] PRN IV 10/05/16 19:30 11/09/16 19:29 Future hold 10/10/16 04:35 19 MLS/HR Aspirin (Ecotrin Tab) 81 mg QAM PO 10/08/16 09:00 11/07/16 08:59 10/10/16 09:52 81 MG Atorvastatin Calcium 40 mg 40 mg QAM PO 10/08/16 09:00 11/07/16 08:59 10/10/16 09:52 40 MG Ceftriaxone Sodium/Dextrose (Rocephin Inj/D5 50ml) 70 ml @ 100 mls/hr Q24H IV 10/07/16 15:00 11/18/16 14:59 10/10/16 15:59 100 MLS/HR Diphenhydramine HCl (Benadryl Syrup) 25 mg Q6H PRN PO 10/07/16 14:45 11/06/16 14:44 Vancomycin HCl 1 ea 1 ea UD PRN N/A 10/07/16 16:15 11/18/16 16:14 Vancomycin HCl/ Sodium Chloride (Vancomycin Inj/ Nss 500ml) 532 ml @ 200 mls/hr Q10H IV 10/08/16 14:00 11/18/16 15:59 10/10/16 15:59 200 MLS/HR Lorazepam (Ativan Inj) 0.5 mg Q4H PRN IV 10/10/16 04:15 11/09/16 04:14 Warfarin Sodium (Coumadin Tab) 10 mg DAILY@16 PO 10/10/16 16:00 11/09/16 15:59 10/10/16 16:00 10 MG Objective Vital Signs Date Time Temp Pulse Resp B/P Pulse Ox O2 Delivery O2 Flow Rate FiO2 10/10/16 20:17 36.9 76 22 124/69 99 10/10/16 20:15 36.9 76 22 124/69 93 10/10/16 16:33 36.5 65 18 121/68 98 10/10/16 16:00 Room Air 10/10/16 12:00 Room Air 10/10/16 11:27 36.4 64 12 116/63 98 Room Air 10/10/16 08:18 Room Air 10/10/16 08:00 Room Air 10/10/16 07:13 36.6 62 20 113/55 97 Room Air 10/10/16 04:00 96 Room Air 10/10/16 03:35 36.6 66 18 107/57 96 Room Air 10/10/16 00:01 96 Room Air 10/09/16 22:56 36.7 70 18 109/48 96 Room Air Physical Exam General Appearance: WD/WN, no apparent distress Eyes: normal inspection, sclerae normal ENT: normal ENT inspection, pharynx normal Neck: supple, no adenopathy, trachea midline Respiratory/Chest: chest non-tender, lungs clear, normal breath sounds, no respiratory distress Cardiovascular: regular rate, rhythm, no gallop, no murmur Abdomen: normal bowel sounds, non tender, soft, no organomegaly Extremities: non-tender, no calf tenderness Neurologic/Psychiatric: alert, oriented x 3 Skin: normal color, warm/dry, no rash Lymphatic: no adenopathy Laboratory Results Last 24 Hours Test 10/10/16 05:18 10/10/16 11:30 White Blood Count 6.64 K/uL Red Blood Count 4.23 M/uL Hemoglobin 12.4 g/dL Hematocrit 33.9 % Mean Corpuscular Volume 80.1 fL Mean Corpuscular Hemoglobin 29.3 pg Mean Corpuscular Hemoglobin Concent 36.6 g/dl Platelet Count 107 K/uL Mean Platelet Volume 10.3 fL Neutrophils (%) (Auto) 63.8 % Lymphocytes (%) (Auto) 21.5 % Monocytes (%) (Auto) 9.0 % Eosinophils (%) (Auto) 4.8 % Basophils (%) (Auto) 0.6 % Neutrophils # (Auto) 4.23 K/uL Lymphocytes # (Auto) 1.43 K/uL Monocytes # (Auto) 0.60 K/uL Eosinophils # (Auto) 0.32 K/uL Basophils # (Auto) 0.04 K/uL RDW Standard Deviation 35.9 fL RDW Coefficient of Variation 12.4 % Immature Granulocyte % (Auto) 0.3 % Immature Granulocyte # (Auto) 0.02 K/uL Prothrombin Time 15.0 SECONDS Prothromb Time International Ratio 1.4 Activated Partial Thromboplast Time 52.1 SECONDS 59.4 SECONDS Partial Thromboplastin Ratio 2.0 2.3 Creatinine 1.30 mg/dl Est Creatinine Clear Calc Drug Dose 96.2 ml/min Estimated GFR () 87.9 Estimated GFR (Non- 75.8 Assessment and Plan 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 given negative blood cultures, clinical picture, non infectious endocarditis most likely, will likely discontinue antibiotics in next day or so if cultures remain negative. Discuss with all involved.
[2016-10-11] VITALS (11 sets, daily range): BP systolic 101–133; BP diastolic 49–64; PULSE 61–86; TEMP 36.5–37.1; O2SAT 95–98
[2016-10-11] MEDS: BENZONATATE 100MG CAP PO PRN (00:13)
[2016-10-11] MEDS: VANCOMYCIN INJ 1,600 MG in SODIUM CHLORIDE 0.9% 500ML 500 ML IV SCH ×2 (02:17→12:43)
[2016-10-11] MEDS: HEPARIN 25,000 UNIT/500ML D5W 500 ML IV PRN ×2 (05:30→07:20)
[2016-10-11 06:43] LABS: INR 1.6 (0.9-1.1); PARTIAL THROMBOPLASTIN RATIO 2.7; PROTHROMBIN TIME (PATIENT) 17.3 SECONDS (9.0-12.0)
[2016-10-11] MEDS: ATORVASTATIN 40 MG TAB PO SCH (07:59)
[2016-10-11] MEDS: ASPIRIN 81 MG ECTAB PO SCH (07:59)
[2016-10-11] MEDS: LEVETIRACETAM 500 MG TAB PO SCH ×2 (08:00→20:29)
[2016-10-11] MEDS: PANTOprazole SOD 40 MG TAB PO SCH ×2 (08:00→20:30)
--- NOTE | 2016-10-11 09:23 | CARDIOLOGY PROGRESS NOTE ---
DATE: 10/11/2016 DATE: 10/11/2016. FOLLOW-UP VISIT SUBJECTIVE: The patient is a 26-year-old who presented with an embolic stroke and has Libman-Sacks endocarditis. He had an uneventful night. The infectious disease note from yesterday is appreciated. His INR today is 1.6. The plan will be to continue the heparin until his INR is at least 2.5. OBJECTIVE: GENERAL: He is alert and oriented. VITAL SIGNS: Blood pressure is 110/60, pulse is regular at 61. He is afebrile. HEAD, EYES, EARS, NOSE, AND THROAT: He is normocephalic. Pupils are equal and reactive to light. Extraocular muscles are intact bilaterally. NECK: The neck veins are flat. CARDIOVASCULAR: Heart has a regular rhythm. Normal S1, S2. No S3, S4. No cardiac rubs or murmurs. GASTROINTESTINAL: Abdomen is soft, nontender without organomegaly. EXTREMITIES: Free of edema, digit clubbing, or cyanosis. NEUROLOGIC: Grossly intact. SKIN: Warm to touch. LYMPH NODES: Negative to palpation. LABORATORY DATA: INR is 1.6, hemoglobin is 12.4, creatinine is 1.3. IMPRESSION: 1. Libman-Sacks endocarditis. 2. Antiphospholipid antibody syndrome. 3. Embolic stroke. 4. Seizure disorder. RECOMMENDATIONS: As outlined above, we will continue the heparin until his INR is at least 2.5. I increased the dose of warfarin to 10 mg daily yesterday. Hopefully, by tomorrow he will be more in the therapeutic range.
[2016-10-11] MEDS ORDERED: VANCOMYCIN TROUGH SCH (11:30)
[2016-10-11 13:39] LABS: PARTIAL THROMBOPLASTIN RATIO 2.4
--- NOTE | 2016-10-11 13:40 | Pharmacy Progress Note ---
Pharmacy Antibiotic Prog Note Date of Service: Oct 11, 2016. Subjective: The patient is currently receiving vancomycin 1600 mg IV every 10 hours. The patient is currently on day # 5 of vancomycin + Rocephin IV therapy for endocarditis. Objective: Height (Feet): 5 Height (Inches): 7 Weight (Kilograms): 96.600 Levels: Item Value Date Time Vancomycin Level Trough 20.4 mcg/ml 10/09/16 0926 Vancomycin Level Trough 26.2 mcg/ml 10/11/16 1140 Lab Results (24hrs): Laboratory Tests Micro Results: Item Value Date Time Blood Culture Received 10/11/16 1150 Blood Pending Blood Culture Received 10/11/16 1140 Blood Pending Blood Culture - Preliminary Resulted 10/07/16 1441 Blood NO GROWTH TO DATE. Blood Culture - Preliminary Resulted 10/07/16 1433 Blood NO GROWTH TO DATE. Fungal Smear - Final Resulted 10/04/16 1135 Bronchial Washings Right Middle Lobe Acid Fast Stain - Final Resulted 10/04/16 1135 Bronchial Washings Right Middle Lobe Gram Stain - Final Complete 10/04/16 1135 Bronchial Washings Right Middle Lobe Recent Pertinent Medications: Item Value Date Time Vancomycin HCl 532 ml @ 200 mls/hr 10/08/16 1400 1600 mg/Sodium Q10H/IV 10/11/16 1243 Chloride Ceftriaxone 70 ml @ 100 mls/hr 10/07/16 1500 Sodium 2000 mg/ Q24H/IV 10/10/16 1559 Dextrose Assessment & Plan: ASSESSMENT: * Trough level drawn today indicates accumulation and a need to re-dose * It is noted that ID thinks it is most likely non-infectious but will plan to continue abx until all cultures negative PLAN: * Change vancomycin to 1600 mg IV q12h * Will start this at 0400 tomorrow AM, when level should be down to ~18 * Trough level ordered prior to the 0400 dose on 10/14 Pharmacy will continue to follow and will adjust dose/frequency as necessary. Thank you
[2016-10-11 13:43] LABS: BUN/CREATININE RATIO 10.3 (10-20); CALCIUM 8.9 mg/dl (8.5-10.1); CREATININE 1.5 mg/dl (0.60-1.40); PHOSPHORUS 3.8 mg/dl (2.5-4.9)
--- NOTE | 2016-10-11 15:11 | Progress Note ---
Internal Med Progress Note Date of Service: Oct 11, 2016. Provider Documentation: SUBJECTIVE: The patient was seen and examined Has had some Aura last night No other symptoms A little tired of being in the hospital OBJECTIVE: Vital Signs-as noted below Exam: General-no distress at rest Eyes-normal ENT-normal Neck-supple Lungs-clear to ausucltate bilaterally Heart-Regular,no murmur Abdomen-Benign,no masses,bowel sound present Extremities-No edema Has minimal ede4ma upper extremities Neuro-AAOx3 Lab data as noted below. PROCEDURES: CTA: 1. Study is negative for significant pulmonary embolus. 2. Diffuse bilateral patchy parenchymal infiltrates versus atypical pulmonary edema. 3. Moderate mediastinal and hilar adenopathy CT head: No acute intracranial abnormality. Repeat CT 10/08/16:1. Left cerebellar hypodensity, consistent with the patient' s known recent infarct 2. No evidence of acute hemorrhage. CT ABD: Bibasilar parenchymal infiltrates. Otherwise negative abdomen and pelvis Venous Doppler: No evidence of deep venous thrombus within the bilateral lower extremities. Previous Hypercoagulable work up: Homocystine: 9.3 (within normal limits) Anticardiolipin Ig (<=14) Anti-cardiolipin IgM: antibody: 19 (<=12) Anticardiolipin IgA: <11 (WNL) Anti-beta 2 glycoprotein Ig (greater than 20) Anti-beta-2 glycoprotein IgM: 25 (greater than 20) anti-beta-2 glycoprotein IgA: <9 (within normal limits) Prothrombin gene mutation: G2 0210A mutation not detected Antithrombin III activity: 109% (within normal limits) Protein C activity: 131% (within normal limits) Protein S activity: 85% (within normal limits) Factor V Leiden mutation: Not detected LUNG, RIGHT MIDDLE LOBE, BRONCHIAL WASHINGS: 1. ALVEOLAR MACROPHAGES AND NEUTROPHILS. SEE COMMENT. 2. NO MALIGNANT CELLS SEEN. MRI Brain: 1. 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 2. Additional foci of subacute ischemic change central left cerebellum and left occipital lobe. 3. Several nonspecific foci of increased signal throughout both cerebral hemispheres unchanged from the prior study 4. No significant postcontrast enhancement MRA Brain::No significant stenosis, occlusion, or aneurysm within the [place]. MRA Neck:No significant stenosis, occlusion, or aneurysm within the [place]. Carotid Doppler: 1. There is no sonographic evidence of hemodynamically significant stenosis in the right or left carotid arterial system. 2. Antegrade flow is shown in the vertebral arteries. ECHO: * Mass seen on anterior mitral leaflet suggestive of vegetation. * The vegetation measures 2.3 cm across. * There is trace mitral regurgitation. SANDIE::10/08/16 * Mobile vegetation on the anterior leaflet of the mitral valve measuring 1.3 by 1.9 cm. * There is trace mitral regurgitation. ASSESSMENT & PLAN: Hemoptysis with H/O Idiopathic Pulmonary Embolism Was On Xarelto at home for PE S/P bronchoscopy on 10/04/16 - Bronchial washing: Normal bibi; No malignant cells seen on pathology Cultures:pending S/P Tranexamic acid and Xarelto discontinued -likely failure of Xarelto CTA:Negative for PE and Venous Doppler; Negative for DVT Appreciate Pulmonary input ANCA screen:pending Previous Hypercoagulable work up as below: antiphospholipid antibody syndrome RUDDY X2: Negative in past: Less likely SLE Appreciate Hematology input Continue IV heparin and Coumadin Appreciate Rheumatology input Repeat hypercoagulable work up pending Plan to treat with prednisone taper if pleuritic pain persists No more Hemoptysis and clinically better again today Plan to keep PTT ~2.5x and INR 2.5 to 3.0 Increase dose of Coumadin to 10 mg daily Clinically better Infective Endocarditis with findings of vegetation Anterior mitral leaflet suggestive of vegetation on ECHO Continue IV vancomycin and ceftriaxone Follow up blood cultures-negative ID consulted-appreciate Input SANDIE:: * Mobile vegetation on the anterior leaflet of the mitral valve measuring 1.3 by 1.9 cm. * There is trace mitral regurgitation. No more SANDIE now Appreciate ID recommendation Repeat Blood cultures are done Likely to D/C antibiotic in a day or two Subacute infarct medial left cerebellum Likely embolic origin from mitral valve vegetation Lipid panel:wnl ECHO:anterior mitral leaflet suggestive of vegetation Carotid Doppler:No significant stenosis Appreciate Neurology input Possible Atypical pneumonia: less likely afebrile, WBC:wnl S/P Levaquin for 4 days Saturating well on RA Oxygen PRN pleuritic chest pain improving Troponin X2 negative, EKG: no signs of ischemia Positive FOBT/Hematemesis: Denies any melena or noticing blood in stools On Xarelto at home which is held Appreciate GI input EGD on 09/1716: Gastritis Protonix BID for 2 weeks and then stop Stool for H.Pylori: Plan to treat if positive:pending OK from GI stand point to start anticoagulation:Discussed on 10/05/16 H Pylori -negative Thrombocytopenia: Likely secondary to acute illness Continue to monitor-improving H/O seizure disorder: stable Continue home meds H/O drug abuse: Patient denies IV drugs Drug screen positive for Marijuana DVT Px: On IV heparin, Coumadin Code Status: Full code Disposition: Continue to monitor Needs follow up with Rheumatology as outpatient: Needs follow up with Hematology Discussed with the parents again today Clinically better and Improving Likely discharge on Saturday Vital Signs: Date Time Temp Pulse Resp B/P Pulse Ox O2 Delivery O2 Flow Rate FiO2 10/11/16 12:00 96 Room Air 10/11/16 11:26 36.8 78 16 120/64 98 Room Air 10/11/16 10:14 Room Air 10/11/16 10:10 36.5 86 18 101/58 95 Room Air 10/11/16 08:00 96 Room Air 10/11/16 04:00 Room Air 10/11/16 03:47 37.1 61 17 110/50 96 Room Air 10/10/16 23:59 Room Air 10/10/16 23:34 37.1 69 17 131/58 96 Room Air 10/10/16 20:17 36.9 76 22 124/69 99 10/10/16 20:15 36.9 76 22 124/69 93 10/10/16 20:00 Room Air 10/10/16 16:33 36.5 65 18 121/68 98 10/10/16 16:00 Room Air Lab Results: Results Past 24 Hours Test 10/11/16 05:50 10/11/16 11:40 10/11/16 13:10 Range/Units Prothrombin Time 17.3 9.0-12.0 SECONDS Prothromb Time International Ratio 1.6 0.9-1.1 Activated Partial Thromboplast Time 70.9 61.6 21.0-31.0 SECONDS Partial Thromboplastin Ratio 2.7 2.4 Vancomycin Level Trough 26.2 SEE COMMENT mcg/ml Sodium Level 141 136-145 mmol/L Potassium Level 4.0 3.5-5.1 mmol/L Chloride Level 108 98-107 mmol/L Carbon Dioxide Level 27 21-32 mmol/L Anion Gap 6.0 3-11 mmol/L Blood Urea Nitrogen 15 7-18 mg/dl Creatinine 1.50 0.60-1.40 mg/dl Est Creatinine Clear Calc Drug Dose 83.4 ml/min Estimated GFR () 73.9 Estimated GFR (Non- 63.8 BUN/Creatinine Ratio 10.3 10-20 Random Glucose 109 70-99 mg/dl Calcium Level 8.9 8.5-10.1 mg/dl Phosphorus Level 3.8 2.5-4.9 mg/dl Magnesium Level 2.0 1.8-2.4 mg/dl Microbiology Results 10/11/16 Blood Culture, Received Pending 10/11/16 Blood Culture, Received Pending
[2016-10-11] MEDS: CEFTRIAXONE SOD INJ 2,000 MG in DEXTROSE 5% 50ML 50 ML IV SCH (15:14)
[2016-10-11] MEDS: WARFARIN SOD 10 MG TAB PO SCH (15:15)
--- NOTE | 2016-10-11 17:11 | DIAGNOSTIC IMAGING REPORT ---
SINGLE VIEW CHEST CLINICAL HISTORY: PICC placement. FINDINGS: An AP, portable, upright chest radiograph is compared to study dated 09/29/2016 and correlated with chest CT dated 10/03/2016. The examination is degraded by portable technique, apical positioning, and patient rotation. A right PICC line has been placed. The tip of the catheter projects over the right atrium. The cardiomediastinal silhouette is unremarkable. Subtle airspace opacities appear to have cleared as compared to 09/29/2016. No lobar consolidation or large pleural effusion is identified. No pneumothorax is seen. The bony thorax is grossly intact. IMPRESSION: 1. A right PICC line has been placed. The tip of the catheter projects over the right atrium. This should be pulled back at least 4 cm. 2. Subtle airspace opacities have improved as compared to 09/29/2016. Electronically signed by: Adolph Duarte M.D. 10/11/2016 5:10 PM Dictated Date/Time: 10/11/2016 5:08 PM
--- NOTE | 2016-10-11 18:13 | DIAGNOSTIC IMAGING REPORT ---
SINGLE VIEW CHEST CLINICAL HISTORY: PICC repositioning. FINDINGS: An AP, portable, upright chest radiograph is compared to study dated 09/29/2016 and correlated with chest CT dated 10/03/2016. The examination is degraded by portable technique, apical positioning, and patient rotation. A right PICC line has been repositioned. The tip of the catheter projects over the cavoatrial junction. The cardiomediastinal silhouette is unremarkable. Subtle airspace opacities seen previously have almost completely resolved. No lobar consolidation or large pleural effusion is identified. No pneumothorax is seen. The bony thorax is grossly intact. IMPRESSION: 1. A right PICC line has been repositioned. The tip of the catheter projects over the cavoatrial junction 2. Subtle airspace opacities seen previously have almost completely resolved. Electronically signed by: Adolph Duarte M.D. 10/11/2016 6:12 PM Dictated Date/Time: 10/11/2016 6:11 PM
--- NOTE | 2016-10-11 21:58 | Infectious Disease Progress Nt ---
Progress Note Date of Service Oct 11, 2016. Subjective Pt evaluation today including: conversation w/ patient, physical exam, chart review, lab review, review of studies, conversation w/ investigations consultant, review of inpatient medication list Patient with episode of recurrent atrial fibrillation. Otherwise remains afebrile, cultures remain negative, no new complaints. All Other Systems: Reviewed and Negative Medications Current Inpatient Medications Medications (Trade) Dose Ordered Sig/Brianda Route Start Time Stop Time Status Last Admin Dose Admin Acetaminophen (Tylenol Tab) 650 mg Q4H PRN PO 10/03/16 07:00 11/02/16 06:59 10/10/16 16:06 650 MG Albuterol/ Ipratropium (Duoneb) 3 ml Q2R PRN INH 10/03/16 07:00 11/02/16 06:59 Benzonatate (Tessalon Perles Cap) 100 mg Q8H PRN PO 10/03/16 07:00 11/02/16 06:59 10/11/16 00:13 100 MG Morphine Sulfate (MoRPHine SULFATE INJ) 4 mg Q3H PRN IV 10/03/16 07:00 10/17/16 06:59 10/06/16 00:37 4 MG Oxycodone/ Acetaminophen (Percocet 5-325mg Tab) 1 tab Q6H PRN PO 10/03/16 07:00 10/17/16 06:59 10/07/16 23:51 1 TAB Lamotrigine (Lamictal Tab) 75 mg BID PO 10/03/16 09:00 11/02/16 08:59 10/11/16 20:30 75 MG Lamotrigine (Lamictal Tab) 200 mg BID PO 10/03/16 09:00 11/02/16 08:59 10/11/16 20:30 200 MG Levetiracetam (Keppra Tab) 500 mg BID PO 10/03/16 09:00 11/02/16 08:59 10/11/16 20:29 500 MG Ondansetron HCl 4 mg 4 mg Q6H PRN IV 10/03/16 07:00 11/02/16 06:59 10/09/16 10:03 4 MG Promethazine HCl 12.5 mg/Sodium Chloride 50.5 ml @ 204 mls/hr Q6H PRN IV 10/03/16 07:00 11/02/16 06:59 Lorazepam/Syringe (Ativan Inj/ Syringe) 1 ml @ 1 mls/min Q4H PRN IV 10/03/16 08:00 11/02/16 07:59 10/10/16 04:10 1 MLS/MIN Pantoprazole Sodium 40 mg 40 mg BID PO 10/05/16 21:00 11/04/16 20:59 10/11/16 20:30 40 MG Heparin Sodium/ Dextrose (Heparin 25,000 Unit/500ml D5W) 500 ml @ 19 mls/hr Q24H PRN IV 10/05/16 19:30 11/09/16 19:29 Future hold 10/11/16 07:20 19 MLS/HR Aspirin (Ecotrin Tab) 81 mg QAM PO 10/08/16 09:00 11/07/16 08:59 10/11/16 07:59 81 MG Atorvastatin Calcium 40 mg 40 mg QAM PO 10/08/16 09:00 11/07/16 08:59 10/11/16 07:59 40 MG Ceftriaxone Sodium/Dextrose (Rocephin Inj/D5 50ml) 70 ml @ 100 mls/hr Q24H IV 10/07/16 15:00 11/18/16 14:59 10/11/16 15:14 100 MLS/HR Diphenhydramine HCl (Benadryl Syrup) 25 mg Q6H PRN PO 10/07/16 14:45 11/06/16 14:44 Vancomycin HCl (Consult) 1 ea UD PRN N/A 10/07/16 16:15 11/18/16 16:14 Lorazepam (Ativan Inj) 0.5 mg Q4H PRN IV 10/10/16 04:15 11/09/16 04:14 Warfarin Sodium 10 mg 10 mg DAILY@16 PO 10/10/16 16:00 11/09/16 15:59 10/11/16 15:15 10 MG Vancomycin HCl/ Sodium Chloride (Vancomycin Inj/ Nss 500ml) 532 ml @ 200 mls/hr Q12@0400,1600 IV 10/12/16 04:00 11/18/16 03:59 Objective Vital Signs Date Time Temp Pulse Resp B/P Pulse Ox O2 Delivery O2 Flow Rate FiO2 10/11/16 19:22 37.0 81 16 133/59 98 10/11/16 16:08 98 Room Air 10/11/16 15:58 36.5 75 16 110/56 98 Room Air 10/11/16 12:00 96 Room Air 10/11/16 11:26 36.8 78 16 120/64 98 Room Air 10/11/16 10:14 Room Air 10/11/16 10:10 36.5 86 18 101/58 95 Room Air 10/11/16 08:00 96 Room Air 10/11/16 04:00 Room Air 10/11/16 03:47 37.1 61 17 110/50 96 Room Air 10/10/16 23:59 Room Air 10/10/16 23:34 37.1 69 17 131/58 96 Room Air Physical Exam General Appearance: WD/WN, no apparent distress Eyes: normal inspection, EOMI ENT: normal ENT inspection, pharynx normal Neck: supple, no adenopathy, trachea midline Respiratory/Chest: lungs clear, normal breath sounds, no respiratory distress Cardiovascular: regular rate, rhythm, no gallop, no murmur Abdomen: normal bowel sounds, non tender, soft, no organomegaly Extremities: no calf tenderness Neurologic/Psychiatric: oriented x 3 Skin: normal color, warm/dry, no rash Laboratory Results Date/Time Source Procedure Growth Status 10/11/16 11:50 Blood Blood Culture Pending Received 10/11/16 11:40 Blood Blood Culture Pending Received Last 24 Hours Test 10/11/16 05:50 10/11/16 11:40 10/11/16 13:10 Prothrombin Time 17.3 SECONDS Prothromb Time International Ratio 1.6 Activated Partial Thromboplast Time 70.9 SECONDS 61.6 SECONDS Partial Thromboplastin Ratio 2.7 2.4 Vancomycin Level Trough 26.2 mcg/ml Sodium Level 141 mmol/L Potassium Level 4.0 mmol/L Chloride Level 108 mmol/L Carbon Dioxide Level 27 mmol/L Anion Gap 6.0 mmol/L Blood Urea Nitrogen 15 mg/dl Creatinine 1.50 mg/dl Est Creatinine Clear Calc Drug Dose 83.4 ml/min Estimated GFR () 73.9 Estimated GFR (Non- 63.8 BUN/Creatinine Ratio 10.3 Random Glucose 109 mg/dl Calcium Level 8.9 mg/dl Phosphorus Level 3.8 mg/dl Magnesium Level 2.0 mg/dl Endcc: [~ rep ct add3]] SINGLE VIEW CHEST CLINICAL HISTORY: PICC repositioning. FINDINGS: An AP, portable, upright chest radiograph is compared to study dated 09/29/2016 and correlated with chest CT dated 10/03/2016. The examination is degraded by portable technique, apical positioning, and patient rotation. A right PICC line has been repositioned. The tip of the catheter projects over the cavoatrial junction. The cardiomediastinal silhouette is unremarkable. Subtle airspace opacities seen previously have almost completely resolved. No lobar consolidation or large pleural effusion is identified. No pneumothorax is seen. The bony thorax is grossly intact. IMPRESSION: 1. A right PICC line has been repositioned. The tip of the catheter projects over the cavoatrial junction 2. Subtle airspace opacities seen previously have almost completely resolved. Electronically signed by: Adolph Duarte M.D. 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 given negative blood cultures, clinical picture, non infectious endocarditis most likely, will likely discontinue antibiotics in next day if cultures remain negative. Discuss with all involved.
[2016-10-12] VITALS (10 sets, daily range): BP systolic 98–123; BP diastolic 43–59; PULSE 60–80; TEMP 36.4–37.2; O2SAT 96–98
[2016-10-12] MEDS: VANCOMYCIN INJ 1,600 MG in SODIUM CHLORIDE 0.9% 500ML 500 ML IV SCH ×2 (04:10→17:02)
[2016-10-12] MEDS: HEPARIN 25,000 UNIT/500ML D5W 500 ML IV PRN (04:19)
[2016-10-12 05:40] LABS: INR 2.1 (0.9-1.1); PROTHROMBIN TIME (PATIENT) 22.7 SECONDS (9.0-12.0)
[2016-10-12 06:20] LABS: CREATININE 1.3 mg/dl (0.60-1.40)
[2016-10-12 06:46] LABS: PARTIAL THROMBOPLASTIN RATIO 2.4
[2016-10-12] MEDS: PANTOprazole SOD 40 MG TAB PO SCH ×2 (10:23→20:35)
[2016-10-12] MEDS: ATORVASTATIN 40 MG TAB PO SCH (10:23)
[2016-10-12] MEDS: LEVETIRACETAM 500 MG TAB PO SCH ×2 (10:24→20:35)
[2016-10-12] MEDS: ASPIRIN 81 MG ECTAB PO SCH (10:24)
--- NOTE | 2016-10-12 11:17 | PROGRESS NOTE ---
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 The patient's INR is 2.1 today. He has had an uneventful night. He just completed physical therapy. Infectious disease note is appreciated and if the cultures remain negative given the clinical presentation antibiotics will be discontinued. OBJECTIVE: VITAL SIGNS: Blood pressure is 110/70, pulse is regular at 70. He is afebrile. GENERAL: He is alert and oriented in no acute distress. HEENT: He is normocephalic. Pupils are equal and reactive to light. Extraocular muscles are intact bilaterally. NECK: The neck veins are flat. Carotids have good upstrokes bilaterally without bruits. Thyroid is nonpalpable. RESPIRATORY: Breath sounds equal bilaterally and clear to auscultation. CARDIOVASCULAR: Heart has regular rhythm. Normal S1, S2. No S3, S4. No cardiac rubs or murmurs. GASTROINTESTINAL: Abdomen is soft, nontender without organomegaly. EXTREMITIES: Free of edema, digit clubbing, or cyanosis. NEUROLOGIC: Grossly intact. SKIN: Warm to touch. LYMPH NODES: Negative to palpation. LABORATORY DATA: INR is 2.1. IMPRESSION: 1. Libman-Sacks endocarditis. 2. Antiphospholipid antibody syndrome. 3. Embolic stroke. 4. Seizure disorder. RECOMMENDATIONS: As outlined above, we would like to continue the heparin until the INR is at least 2.5. It is trending there now and hopefully by tomorrow it will be at that level. Otherwise, the patient is doing well.
--- NOTE | 2016-10-12 11:18 | Progress Note ---
Internal Med Progress Note Date of Service: Oct 12, 2016. Provider Documentation: SUBJECTIVE: The patient was seen and examined Has had a short runs of VT following PICC placement Asymptomatic Line repositioned OBJECTIVE: Vital Signs-as noted below Exam: General-no distress at rest Eyes-normal ENT-normal Neck-supple Lungs-clear to ausucltate bilaterally Heart-Regular,no murmur Abdomen-Benign,no masses,bowel sound present Extremities-No edema Has minimal ede4ma upper extremities Neuro-AAOx3 Lab data as noted below. PROCEDURES: CTA: 1. Study is negative for significant pulmonary embolus. 2. Diffuse bilateral patchy parenchymal infiltrates versus atypical pulmonary edema. 3. Moderate mediastinal and hilar adenopathy CT head: No acute intracranial abnormality. Repeat CT 10/08/16:1. Left cerebellar hypodensity, consistent with the patient' s known recent infarct 2. No evidence of acute hemorrhage. CT ABD: Bibasilar parenchymal infiltrates. Otherwise negative abdomen and pelvis Venous Doppler: No evidence of deep venous thrombus within the bilateral lower extremities. Previous Hypercoagulable work up: Homocystine: 9.3 (within normal limits) Anticardiolipin Ig (<=14) Anti-cardiolipin IgM: antibody: 19 (<=12) Anticardiolipin IgA: <11 (WNL) Anti-beta 2 glycoprotein Ig (greater than 20) Anti-beta-2 glycoprotein IgM: 25 (greater than 20) anti-beta-2 glycoprotein IgA: <9 (within normal limits) Prothrombin gene mutation: G2 0210A mutation not detected Antithrombin III activity: 109% (within normal limits) Protein C activity: 131% (within normal limits) Protein S activity: 85% (within normal limits) Factor V Leiden mutation: Not detected LUNG, RIGHT MIDDLE LOBE, BRONCHIAL WASHINGS: 1. ALVEOLAR MACROPHAGES AND NEUTROPHILS. SEE COMMENT. 2. NO MALIGNANT CELLS SEEN. MRI Brain: 1. 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 2. Additional foci of subacute ischemic change central left cerebellum and left occipital lobe. 3. Several nonspecific foci of increased signal throughout both cerebral hemispheres unchanged from the prior study 4. No significant postcontrast enhancement MRA Brain::No significant stenosis, occlusion, or aneurysm within the [place]. MRA Neck:No significant stenosis, occlusion, or aneurysm within the [place]. Carotid Doppler: 1. There is no sonographic evidence of hemodynamically significant stenosis in the right or left carotid arterial system. 2. Antegrade flow is shown in the vertebral arteries. ECHO: * Mass seen on anterior mitral leaflet suggestive of vegetation. * The vegetation measures 2.3 cm across. * There is trace mitral regurgitation. SANDIE::10/08/16 * Mobile vegetation on the anterior leaflet of the mitral valve measuring 1.3 by 1.9 cm. * There is trace mitral regurgitation. ASSESSMENT & PLAN: Hemoptysis with H/O Idiopathic Pulmonary Embolism Was On Xarelto at home for PE S/P bronchoscopy on 10/04/16 - Bronchial washing: Normal bibi; No malignant cells seen on pathology Cultures:pending S/P Tranexamic acid and Xarelto discontinued -likely failure of Xarelto CTA:Negative for PE and Venous Doppler; Negative for DVT Appreciate Pulmonary input ANCA screen:pending Previous Hypercoagulable work up as below: antiphospholipid antibody syndrome RUDDY X2: Negative in past: Less likely SLE Appreciate Hematology input Continue IV heparin and Coumadin Appreciate Rheumatology input Repeat hypercoagulable work up pending Plan to treat with prednisone taper if pleuritic pain persists No more Hemoptysis and clinically better again today Plan to keep PTT ~2.5x and INR 2.5 to 3.0 Increase dose of Coumadin to 10 mg daily Clinic much better INR 2.1 today Continue Heparin and Coumadin for now Likely discharge on Saturday Infective Endocarditis with findings of vegetation Anterior mitral leaflet suggestive of vegetation on ECHO Continue IV vancomycin and ceftriaxone Follow up blood cultures-negative ID consulted-appreciate Input SANDIE:: * Mobile vegetation on the anterior leaflet of the mitral valve measuring 1.3 by 1.9 cm. * There is trace mitral regurgitation. No more SANDIE now Appreciate ID recommendation Repeat Blood cultures are done-pending results Likely to D/C antibiotic in a day or two Subacute infarct medial left cerebellum Likely embolic origin from mitral valve vegetation Lipid panel:wnl ECHO:anterior mitral leaflet suggestive of vegetation Carotid Doppler:No significant stenosis Appreciate Neurology input Possible Atypical pneumonia: less likely afebrile, WBC:wnl S/P Levaquin for 4 days Saturating well on RA Oxygen PRN pleuritic chest pain improving Troponin X2 negative, EKG: no signs of ischemia Positive FOBT/Hematemesis: Denies any melena or noticing blood in stools On Xarelto at home which is held Appreciate GI input EGD on 09/1716: Gastritis Protonix BID for 2 weeks and then stop Stool for H.Pylori: Plan to treat if positive:pending OK from GI stand point to start anticoagulation:Discussed on 10/05/16 H Pylori -negative Thrombocytopenia: Likely secondary to acute illness Continue to monitor-improving H/O seizure disorder: stable Continue home meds H/O drug abuse: Patient denies IV drugs Drug screen positive for Marijuana DVT Px: On IV heparin, Coumadin Code Status: Full code Disposition: Continue to monitor Needs follow up with Rheumatology as outpatient: Needs follow up with Hematology Discussed with the parents again today Clinically better and Improving Likely discharge on Saturday Vital Signs: Date Time Temp Pulse Resp B/P Pulse Ox O2 Delivery O2 Flow Rate FiO2 10/12/16 08:00 Room Air 10/12/16 07:28 36.4 71 18 98/46 97 Room Air 10/12/16 04:05 36.6 60 19 109/56 97 Room Air 10/12/16 04:00 98 Room Air 10/11/16 23:59 98 Room Air 10/11/16 23:42 37.0 78 18 108/49 97 Room Air 10/11/16 20:00 98 Room Air 10/11/16 19:22 37.0 81 16 133/59 98 10/11/16 16:08 98 Room Air 10/11/16 15:58 36.5 75 16 110/56 98 Room Air 10/11/16 12:00 96 Room Air 10/11/16 11:26 36.8 78 16 120/64 98 Room Air Lab Results: Results Past 24 Hours Test 10/11/16 11:40 10/11/16 13:10 10/12/16 05:15 Range/Units Vancomycin Level Trough 26.2 SEE COMMENT mcg/ml Activated Partial Thromboplast Time 61.6 62.7 21.0-31.0 SECONDS Partial Thromboplastin Ratio 2.4 2.4 Sodium Level 141 136-145 mmol/L Potassium Level 4.0 3.5-5.1 mmol/L Chloride Level 108 98-107 mmol/L Carbon Dioxide Level 27 21-32 mmol/L Anion Gap 6.0 3-11 mmol/L Blood Urea Nitrogen 15 7-18 mg/dl Creatinine 1.50 1.30 0.60-1.40 mg/dl Est Creatinine Clear Calc Drug Dose 83.4 96.2 ml/min Estimated GFR () 73.9 87.9 Estimated GFR (Non- 63.8 75.8 BUN/Creatinine Ratio 10.3 10-20 Random Glucose 109 70-99 mg/dl Calcium Level 8.9 8.5-10.1 mg/dl Phosphorus Level 3.8 2.5-4.9 mg/dl Magnesium Level 2.0 1.8-2.4 mg/dl Prothrombin Time 22.7 9.0-12.0 SECONDS Prothromb Time International Ratio 2.1 0.9-1.1 Microbiology Results 10/11/16 Blood Culture, Received Pending 10/11/16 Blood Culture, Received Pending
[2016-10-12] MEDS: CEFTRIAXONE SOD INJ 2,000 MG in DEXTROSE 5% 50ML 50 ML IV SCH (15:48)
[2016-10-12] MEDS: WARFARIN SOD 10 MG TAB PO SCH (17:03)
[2016-10-13] VITALS (11 sets, daily range): BP systolic 112–131; BP diastolic 43–75; PULSE 70–91; TEMP 36.5–37.1; O2SAT 95–98
[2016-10-13 05:32] LABS: INR 2.2 (0.9-1.1); PARTIAL THROMBOPLASTIN RATIO 2.9; PROTHROMBIN TIME (PATIENT) 24.8 SECONDS (9.0-12.0)
[2016-10-13] MEDS: VANCOMYCIN INJ 1,600 MG in SODIUM CHLORIDE 0.9% 500ML 500 ML IV SCH (05:36)
[2016-10-13] MEDS: HEPARIN 25,000 UNIT/500ML D5W 500 ML IV PRN ×2 (05:58→14:25)
[2016-10-13 07:00] LABS: PARTIAL THROMBOPLASTIN RATIO 2.8
[2016-10-13] MEDS: ASPIRIN 81 MG ECTAB PO SCH (08:52)
[2016-10-13] MEDS: LEVETIRACETAM 500 MG TAB PO SCH ×2 (08:53→20:38)
[2016-10-13] MEDS: ATORVASTATIN 40 MG TAB PO SCH (08:53)
[2016-10-13] MEDS: PANTOprazole SOD 40 MG TAB PO SCH ×2 (08:53→20:37)
[2016-10-13 11:21] LABS: PARTIAL THROMBOPLASTIN RATIO 2.4
--- NOTE | 2016-10-13 12:45 | Cardiology Follow-Up ---
Subjective General Date of Service: Oct 13, 2016. Chief Complaint: follow up MV vegetation Pt evaluation today including: conversation w/ patient, conversation w/ family History of Present Illness The patient is a 26 year old male seen in cardiology follow-up. Patient is feeling well. Denies any chest discomfort or shortness of breath. Telemetry reveals stable sinus rhythm. He denies any additional hemoptysis. He states that his vertigo symptoms have drastically improved. Allergies Coded Allergies: Tramadol (Verified Allergy, Severe, SHORTNESS OF BREATH, 10/03/16) lowers seizure threshold Penicillins (Verified Allergy, Unknown, HIVES AND MILD WHEEZING, 10/07/16) Social History Smoking Status: Former Smoker Hx Tobacco Use In Past Year?: No (vaporizer 6 mg nicotene) Hx Alcohol Use - Type And Amou: Yes (1-2beers 2 to 3 times a week) Hx Substance Use - Type And Am: Yes (marijuana) Problem List Medical Problems: (1) Abdominal pain Status: Acute (2) LOU (acute kidney injury) Status: Acute (3) Hematemesis Status: Acute (4) Hemoptysis Status: Acute (5) Hemoptysis Status: Acute (6) Left leg pain Status: Acute (7) Metabolic acidosis Status: Acute (8) Pleuritis Status: Acute (9) Recurrent seizures Status: Acute (10) Seizure Status: Acute (11) Vertigo Status: Acute (12) Vomiting Status: Acute Physical Exam Vital Signs Last Vital Signs Documentation Date Time Temp Pulse Resp B/P Pulse Ox O2 Delivery O2 Flow Rate FiO2 10/13/16 11:59 36.5 91 18 122/67 95 Room Air 10/08/16 11:10 2.0 10/04/16 11:10 28 Physical Exam Constitutional: Level of Distress: NAD Neck: supple, trachea midline Lungs: Auscultation: no wheezing, no rales/crackles, no rhonchi Cardiovascular: Heart Auscultation: RRR, no murmurs, no rubs Abdomen: Inspection & Palpation: soft, non-distended, no tenderness, guarding & rebound Extremities: no cyanosis, no edema Assessment and Plan Assessment and Plan Impression: 26-year-old male 1. 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 History of unprovoked pulmonary embolism, April 2016 3. Antiphospholipid antibody syndrome Plan: Continue unfractionated heparin and coumadin for anticoagulation. INR is 2.2 today, goal INR is 2.5-3.5, will await INR of 2.5 before discontinuation of heparin. Plan for repeat TTEcho am 10/14 for reassessment of the MV vegetation. Plan for outpatient follow up with Dr Dyson with close clinical and echocardiographic follow up as outpatient. Will need referral to [facility] [place]. Radha Ashley, Laboratory Results Last 24 Hours Test 10/13/16 05:00 10/13/16 06:28 10/13/16 10:55 Prothrombin Time 24.8 SECONDS Prothromb Time International Ratio 2.2 Activated Partial Thromboplast Time 75.6 SECONDS 72.5 SECONDS 62.2 SECONDS Partial Thromboplastin Ratio 2.9 2.8 2.4
--- NOTE | 2016-10-13 16:10 | Progress Note ---
Internal Med Progress Note Date of Service: Oct 13, 2016. Provider Documentation: SUBJECTIVE: The patient was seen and examined Remains stable Denies any symptoms Likely to go home tomorrow OBJECTIVE: Vital Signs-as noted below Exam: General-no distress at rest Eyes-normal ENT-normal Neck-supple Lungs-clear to ausucltate bilaterally Heart-Regular,no murmur Abdomen-Benign,no masses,bowel sound present Extremities-No edema Has minimal ede4ma upper extremities Neuro-AAOx3 Lab data as noted below. PROCEDURES: CTA: 1. Study is negative for significant pulmonary embolus. 2. Diffuse bilateral patchy parenchymal infiltrates versus atypical pulmonary edema. 3. Moderate mediastinal and hilar adenopathy CT head: No acute intracranial abnormality. Repeat CT 10/08/16:1. Left cerebellar hypodensity, consistent with the patient' s known recent infarct 2. No evidence of acute hemorrhage. CT ABD: Bibasilar parenchymal infiltrates. Otherwise negative abdomen and pelvis Venous Doppler: No evidence of deep venous thrombus within the bilateral lower extremities. Previous Hypercoagulable work up: Homocystine: 9.3 (within normal limits) Anticardiolipin Ig (<=14) Anti-cardiolipin IgM: antibody: 19 (<=12) Anticardiolipin IgA: <11 (WNL) Anti-beta 2 glycoprotein Ig (greater than 20) Anti-beta-2 glycoprotein IgM: 25 (greater than 20) anti-beta-2 glycoprotein IgA: <9 (within normal limits) Prothrombin gene mutation: G2 [id number] mutation not detected Antithrombin III activity: 109% (within normal limits) Protein C activity: 131% (within normal limits) Protein S activity: 85% (within normal limits) Factor V Leiden mutation: Not detected LUNG, RIGHT MIDDLE LOBE, BRONCHIAL WASHINGS: 1. ALVEOLAR MACROPHAGES AND NEUTROPHILS. SEE COMMENT. 2. NO MALIGNANT CELLS SEEN. MRI Brain: 1. 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 2. Additional foci of subacute ischemic change central left cerebellum and left occipital lobe. 3. Several nonspecific foci of increased signal throughout both cerebral hemispheres unchanged from the prior study 4. No significant postcontrast enhancement MRA Brain::No significant stenosis, occlusion, or aneurysm within the [place]. MRA Neck:No significant stenosis, occlusion, or aneurysm within the [place]. Carotid Doppler: 1. There is no sonographic evidence of hemodynamically significant stenosis in the right or left carotid arterial system. 2. Antegrade flow is shown in the vertebral arteries. ECHO: * Mass seen on anterior mitral leaflet suggestive of vegetation. * The vegetation measures 2.3 cm across. * There is trace mitral regurgitation. SANDIE::10/08/16 * Mobile vegetation on the anterior leaflet of the mitral valve measuring 1.3 by 1.9 cm. * There is trace mitral regurgitation. ASSESSMENT & PLAN: Hemoptysis with H/O Idiopathic Pulmonary Embolism Was On Xarelto at home for PE S/P bronchoscopy on 10/04/16 - Bronchial washing: Normal bibi; No malignant cells seen on pathology Cultures:pending S/P Tranexamic acid and Xarelto discontinued -likely failure of Xarelto CTA:Negative for PE and Venous Doppler; Negative for DVT Appreciate Pulmonary input ANCA screen:pending Previous Hypercoagulable work up as below: antiphospholipid antibody syndrome RUDDY X2: Negative in past: Less likely SLE Appreciate Hematology input Continue IV heparin and Coumadin Appreciate Rheumatology input Repeat hypercoagulable work up pending Plan to treat with prednisone taper if pleuritic pain persists No more Hemoptysis and clinically better again today Plan to keep PTT ~2.5x and INR 2.5 to 3.0 Increase dose of Coumadin to 10 mg daily Clinic much better INR 2.2 on 10/13/16 Continue Heparin and Coumadin for now Likely discharge on Saturday after INR > 2.5 expected Noninfective Endocarditis , Libman-Sachs Anterior mitral leaflet suggestive of vegetation on ECHO Continue IV vancomycin and ceftriaxone Follow up blood cultures-negative ID consulted-appreciate Input SANDIE:: * Mobile vegetation on the anterior leaflet of the mitral valve measuring 1.3 by 1.9 cm. * There is trace mitral regurgitation. No more SANDIE now Appreciate ID recommendation Repeat Blood cultures are done-pending results Likely to D/C antibiotic in a day or two Subacute infarct medial left cerebellum Likely embolic origin from mitral valve vegetation Lipid panel:wnl ECHO:anterior mitral leaflet suggestive of vegetation Carotid Doppler:No significant stenosis Appreciate Neurology input Repeat ECHO tomorrow Possible Atypical pneumonia: less likely afebrile, WBC:wnl S/P Levaquin for 4 days Saturating well on RA Oxygen PRN pleuritic chest pain improving Troponin X2 negative, EKG: no signs of ischemia Antibiotics are done Positive FOBT/Hematemesis: Denies any melena or noticing blood in stools On Xarelto at home which is held Appreciate GI input EGD on 09/1716: Gastritis Protonix BID for 2 weeks and then stop Stool for H.Pylori: Plan to treat if positive:pending OK from GI stand point to start anticoagulation:Discussed on 10/05/16 H Pylori -negative Thrombocytopenia: Likely secondary to acute illness Continue to monitor-improving H/O seizure disorder: stable Continue home meds H/O drug abuse: Patient denies IV drugs Drug screen positive for Marijuana DVT Px: On IV heparin, Coumadin Code Status: Full code Disposition: Continue to monitor Needs follow up with Rheumatology as outpatient: Needs follow up with Hematology Discussed with the parents again today Clinically better and Improving Likely discharge on Saturday Vital Signs: Date Time Temp Pulse Resp B/P Pulse Ox O2 Delivery O2 Flow Rate FiO2 10/13/16 12:00 97 Room Air 10/13/16 12:00 97 Room Air 10/13/16 11:59 36.5 91 18 122/67 95 Room Air 10/13/16 08:08 36.9 72 20 113/58 96 Room Air 10/13/16 08:00 97 Room Air 10/13/16 04:00 Room Air 10/13/16 02:55 36.5 75 18 122/75 97 Room Air 10/13/16 02:17 36.7 70 16 97 10/12/16 23:59 Room Air 10/12/16 23:45 36.7 70 16 112/43 97 Room Air 10/12/16 20:00 Room Air 10/12/16 19:48 36.8 75 22 108/59 98 Room Air Lab Results: Results Past 24 Hours Test 10/13/16 05:00 10/13/16 06:28 10/13/16 10:55 Range/Units Prothrombin Time 24.8 9.0-12.0 SECONDS Prothromb Time International Ratio 2.2 0.9-1.1 Activated Partial Thromboplast Time 75.6 72.5 62.2 21.0-31.0 SECONDS Partial Thromboplastin Ratio 2.9 2.8 2.4
[2016-10-13] MEDS: WARFARIN SOD 10 MG TAB PO SCH (16:31)
[2016-10-14] VITALS (7 sets, daily range): BP systolic 115–128; BP diastolic 65–74; PULSE 67–77; TEMP 36.6–36.9; O2SAT 97–99
[2016-10-14] MEDS: OXYCODONE/ACETAMINOPHEN 5-325 TAB PO PRN (02:42)
[2016-10-14] MEDS ORDERED: VANCOMYCIN TROUGH ONE (03:30)
[2016-10-14 06:01] LABS: HEMATOCRIT 35.4 % (42-52); MEAN CORPUSCULAR HEMOGLOBIN 29.3 pg (25-34); MEAN CORPUSCULAR HGB CONC 36.2 g/dl (32-36); MEAN PLATELET VOLUME 10.3 fL (7.4-10.4); PLATELET COUNT 151 K/uL (130-400); RED BLOOD COUNT 4.37 M/uL (4.7-6.1); WHITE BLOOD COUNT 7.86 K/uL (4.8-10.8)
[2016-10-14 06:20] LABS: INR 2.7 (0.9-1.1); PARTIAL THROMBOPLASTIN RATIO 2.5; PROTHROMBIN TIME (PATIENT) 29.9 SECONDS (9.0-12.0)
[2016-10-14 06:36] LABS: CREATININE 1.4 mg/dl (0.60-1.40); POTASSIUM 3.6 mmol/L (3.5-5.1)
[2016-10-14 06:39] LABS: ALB/GLOB RATIO 1.1 (0.9-2)
[2016-10-14] MEDS: ASPIRIN 81 MG ECTAB PO SCH (09:09)
[2016-10-14] MEDS: ATORVASTATIN 40 MG TAB PO SCH (09:09)
[2016-10-14] MEDS: PANTOprazole SOD 40 MG TAB PO SCH (09:09)
[2016-10-14] MEDS: LEVETIRACETAM 500 MG TAB PO SCH (09:09)
[2016-10-14] MEDS ORDERED: POTASSIUM CHLORIDE 10 MEQ TABCR PO STA (09:25)
--- NOTE | 2016-10-14 10:05 | ECHOCARDIOGRAM REPORT ---
*NOTICE TO RECEIVING DEMOCRAT AGENCY This information is strictly Confidential and protected under [place] law. [place] law prohibits you from making any further disclosure of this information unless further disclosure is expressly permitted by the written consent of the person to whom it pertains or is authorized by law. A general authorization for the release of medical or other information is not sufficient for this purpose. Hospital accepts no responsibility if the information is made available to any other person, INCLUDING THE PATIENT. Interpretation Summary * Name: JANE SUTTON Study Date: 10/14/2016 06:50 AM BP: 122/67 mmHg * Patient Location: [facility]\S\N283\S\2 HR: 91 * : 1990 (M/d/yyyy) Gender: Male Height: 67 in * Age: 26 yrs Ethnicity: CA Weight: 212 lb * Ordering Physician: Eugene Ashley * Performed By: Vicki Packer RDCS * * Reason For Study: Nonbacterial thrombotic endocarditis, reassess mitral valve vegetation * BSA: 2.1 m2 * The study was technically adequate. * -- Conclusions -- * There is a mobile vegetation on the tip of the atrial aspect of the anterior mitral valve leaflet measuring 1.3 cm x 0.55 cm. * There is mild mitral regurgitation. * Compared to images of the SANDIE dated 10/08/16 and TTE dated 10/07/16 there has been a substantial interval improvement (reduction in size) of the mitral valve vegetation. * There is a new echodensity in the right atrium, the appearance and location are compatible with this being the tip of an PICC line. * Recommend repeating a focussed transthoracic echocardiogram of the right atrium after the PICC line is removed for follow up , to exclude the presence of new cardiac thrombus. Procedure Details * A complete two-dimensional transthoracic echocardiogram was performed (2D, M-mode, Doppler and color flow Doppler). Left Ventricle * The left ventricle is normal in size. * There is normal left ventricular wall thickness. * Left ventricular systolic function is normal. * Ejection Fraction = 55-60%. * The left ventricular wall motion is normal. Right Ventricle * The right ventricle is normal size. * The right ventricular systolic function is normal as assessed by tricuspid annular plane systolic excursion (TAPSE) (normal >1.5 cm). Atria * The left atrial size is normal. * Right atrial size is normal. * There is a new echodensity in the right atrium, the appearance and location are compatible with this being the tip of an PICC line. * There is no evidence of atrial septal defect, but resolution does not allow assessment for a patent foramen ovale. Mitral Valve * The mitral valve is normal. * There is a mobile echodensity on the tip of the atrial aspect of the anterior mitral valve leaflet measuring 1.3 cm x 0.55 cm. * There is no mitral valve stenosis. * There is mild mitral regurgitation. Tricuspid Valve * The tricuspid valve is normal. * There is no tricuspid stenosis. * Significant tricuspid regurgitation is absent. Aortic Valve * The aortic valve is trileaflet. * Aortic stenosis is absent. * There is no significant aortic regurgitation. Pulmonic Valve * The pulmonary valve is not well seen, but the Doppler examination is normal without significant regurgitation or stenosis. Great Vessels * The aortic root and proximal ascending aorta are normal sized. Pericardium/Pleural * There is no pericardial effusion. Great Vessels * Normal inferior vena cava diameter and respiratory variation suggests normal central venous pressure. * Normal inferior vena cava size and collapsability with sniff indicates a normal right atrial pressure of 3 mmHg Left Ventricular Diastolic Function * The LV diastolic function is normal. MMode 2D Measurements and Calculations IVSd 0.81 cm LVIDd 4.8 cm LVIDs 3.3 cm LVPWd 0.93 cm IVS/LVPW 0.87 FS 31.5 % EDV(Teich) 109.2 ml ESV(Teich) 44.4 ml EF(Teich) 59.3 % EDV(cubed) 112.8 ml ESV(cubed) 36.3 ml EF(cubed) 67.9 % LV mass(C)d 142.7 grams LV mass(C)dI 68.8 grams/m\S\2 CO(Teich) 5.3 l/min CI(Teich) 2.6 l/min/m\S\2 SV(Teich) 64.7 ml SI(Teich) 31.2 ml/m\S\2 CO(cubed) 6.3 l/min CI(cubed) 3.0 l/min/m\S\2 SV(cubed) 76.5 ml SI(cubed) 36.9 ml/m\S\2 Ao root diam 3.2 cm Ao root area 8.3 cm\S\2 ACS 2.1 cm LA dimension 3.5 cm asc Aorta Diam 2.6 cm LA/Ao 1.1 LVOT diam 2.0 cm LVOT area 3.1 cm\S\2 LVAd ap4 33.5 cm\S\2 LVLd ap4 8.5 cm EDV(MOD-sp4) 111.0 ml LVAs ap4 18.6 cm\S\2 LVLs ap4 6.8 cm ESV(MOD-sp4) 43.5 ml EF(MOD-sp4) 60.8 % LVAd ap2 35.0 cm\S\2 LVLd ap2 8.4 cm EDV(MOD-sp2) 121.0 ml LVAs ap2 20.4 cm\S\2 LVLs ap2 7.3 cm ESV(MOD-sp2) 48.0 ml EF(MOD-sp2) 60.3 % CO(MOD-sp4) 5.5 l/min CI(MOD-sp4) 2.7 l/min/m\S\2 SV(MOD-sp4) 67.5 ml SI(MOD-sp4) 32.6 ml/m\S\2 CO(MOD-sp2) 6.0 l/min CI(MOD-sp2) 2.9 l/min/m\S\2 SV(MOD-sp2) 73.0 ml SI(MOD-sp2) 35.2 ml/m\S\2 Doppler Measurements and Calculations MV E max lacy 93.1 cm/sec MV A max lacy 82.5 cm/sec MV E/A 1.1 MV dec time 0.29 sec Ao V2 max 148.0 cm/sec Ao max PG 8.8 mmHg Ao max PG (full) 3.6 mmHg POLLY(V,A) 2.4 cm\S\2 POLLY(V,D) 2.4 cm\S\2 LV V1 max PG 5.2 mmHg LV V1 max 114.0 cm/sec PA V2 max 84.2 cm/sec PA max PG 2.8 mmHg PA acc slope 454.6 cm/sec\S\2 PA acc time 0.14 sec PA pr(Accel) 15.6 mmHg
--- NOTE | 2016-10-14 10:52 | Cardiology Follow-Up ---
Subjective General Date of Service: Oct 14, 2016. Chief Complaint: follow up MV vegetation Pt evaluation today including: conversation w/ patient, conversation w/ family , physical exam History of Present Illness The patient is a 26 year old male seen in follow up. He feels well. He denies chest pain, palpitations, or neurologic symptoms. Allergies Coded Allergies: Tramadol (Verified Allergy, Severe, SHORTNESS OF BREATH, 10/03/16) lowers seizure threshold Penicillins (Verified Allergy, Unknown, HIVES AND MILD WHEEZING, 10/07/16) Social History Smoking Status: Former Smoker Hx Tobacco Use In Past Year?: No (vaporizer 6 mg nicotene) Hx Alcohol Use - Type And Amou: Yes (1-2beers 2 to 3 times a week) Hx Substance Use - Type And Am: Yes (marijuana) Problem List Medical Problems: (1) Abdominal pain Status: Acute (2) LOU (acute kidney injury) Status: Acute (3) Hematemesis Status: Acute (4) Hemoptysis Status: Acute (5) Hemoptysis Status: Acute (6) Left leg pain Status: Acute (7) Metabolic acidosis Status: Acute (8) Pleuritis Status: Acute (9) Recurrent seizures Status: Acute (10) Seizure Status: Acute (11) Vertigo Status: Acute (12) Vomiting Status: Acute Physical Exam Vital Signs Last Vital Signs Documentation Date Time Temp Pulse Resp B/P Pulse Ox O2 Delivery O2 Flow Rate FiO2 10/14/16 08:00 97 Room Air 10/14/16 07:25 36.6 77 20 125/74 10/08/16 11:10 2.0 10/04/16 11:10 28 Physical Exam Constitutional: Level of Distress: NAD Neck: supple, trachea midline Lungs: Auscultation: no wheezing, no rales/crackles, no rhonchi Cardiovascular: Heart Auscultation: RRR, no murmurs, no rubs Abdomen: Inspection & Palpation: soft, non-distended, no tenderness, guarding & rebound Extremities: no cyanosis, no edema Assessment and Plan Assessment and Plan Telemetry review reveals occasional PVCs, Ventricular couplets, and ventricular triplets. There was at 13 beat salvos of nonsustained ventricular tachycardia this am, at 5:32 am with spontaneous office to SR. TTecho performed today, 10/14/16 and reviewed independently (as were the images from his 3 prior echocardiogram studies) * -- Conclusions -- * There is a mobile vegetation on the tip of the atrial aspect of the anterior mitral valve leaflet measuring 1.3 cm x 0.55 cm. * There is mild mitral regurgitation. * Compared to images of the SANDIE dated 10/08/16 and TTE dated 10/07/16 there has been a substantial interval improvement (recuction in size) of the mitral valve vegetation. * There is a new echodensity in the right atrium, the appearance and location are compatible with this being the tip of an PICC line. * Recommend repeating a focussed transthoracic echocardiogram of the right atrium after the PICC line is removed for follow up , to exclude the presence of new cardiac thrombus. Impression: 26-year-old male 1. 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 History of unprovoked pulmonary embolism, April 2016 3. Antiphospholipid antibody syndrome 4. Asymptomatic NSVT 5. Echodensity in RA, suspect this is tip of PICC line Plan: INR is 2.7 today (goal 2.5 -3.5). Plan to discontinue heparin. Suspect Right atrial echodensity is the PICC line, but will plan for repeat focussed echo images today after PICC removed to make sure. There has been an interval improvement in the MV vegetation on anticoagulation. NSVT may also be due to PICC line in RA causing ectopy. PICC no longer indicated and is to be removed. Do not believe pharmacologic therapy is necessary (no beta nathan) for NSVT. If repeat echo after PICC removed stable, and rhythm stable later today will plan for DC to home. Plan for outpatient follow up with Dr Dyson with close clinical and echocardiographic follow up as outpatient. Will need referral to [facility] [place]. Radha Ashley DO Laboratory Results Last 24 Hours Test 10/13/16 10:55 10/14/16 05:35 Activated Partial Thromboplast Time 62.2 SECONDS 64.6 SECONDS Partial Thromboplastin Ratio 2.4 2.5 White Blood Count 7.86 K/uL Red Blood Count 4.37 M/uL Hemoglobin 12.8 g/dL Hematocrit 35.4 % Mean Corpuscular Volume 81.0 fL Mean Corpuscular Hemoglobin 29.3 pg Mean Corpuscular Hemoglobin Concent 36.2 g/dl RDW Standard Deviation 36.4 fL RDW Coefficient of Variation 12.5 % Platelet Count 151 K/uL Mean Platelet Volume 10.3 fL Prothrombin Time 29.9 SECONDS Prothromb Time International Ratio 2.7 Sodium Level 142 mmol/L Potassium Level 3.6 mmol/L Chloride Level 106 mmol/L Carbon Dioxide Level 27 mmol/L Anion Gap 9.0 mmol/L Blood Urea Nitrogen 17 mg/dl Creatinine 1.40 mg/dl Est Creatinine Clear Calc Drug Dose 89.2 ml/min Estimated GFR () 80.4 Estimated GFR (Non- 69.3 BUN/Creatinine Ratio 12.0 Random Glucose 86 mg/dl Calcium Level 9.0 mg/dl Magnesium Level 1.9 mg/dl Total Bilirubin 0.6 mg/dl Aspartate Amino Transf (AST/SGOT) 70 U/L Alanine Aminotransferase (ALT/SGPT) 181 U/L Alkaline Phosphatase 106 U/L Total Protein 7.6 gm/dl Albumin 3.9 gm/dl Globulin 3.7 gm/dl Albumin/Globulin Ratio 1.1
--- NOTE | 2016-10-14 11:28 | Progress Note ---
Internal Med Progress Note Date of Service: Oct 14, 2016. Provider Documentation: SUBJECTIVE: The patient was seen and examined Remains stable Denies any symptoms Getting Physical therapy Happy to be discharged today OBJECTIVE: Vital Signs-as noted below Exam: General-no distress at rest Eyes-normal ENT-normal Neck-supple Lungs-clear to ausucltate bilaterally Heart-Regular,no murmur Abdomen-Benign,no masses,bowel sound present Extremities-No edema Has minimal ede4ma upper extremities Neuro-AAOx3 Lab data as noted below. PROCEDURES: CTA: 1. Study is negative for significant pulmonary embolus. 2. Diffuse bilateral patchy parenchymal infiltrates versus atypical pulmonary edema. 3. Moderate mediastinal and hilar adenopathy CT head: No acute intracranial abnormality. Repeat CT 10/08/16:1. Left cerebellar hypodensity, consistent with the patient' s known recent infarct 2. No evidence of acute hemorrhage. CT ABD: Bibasilar parenchymal infiltrates. Otherwise negative abdomen and pelvis Venous Doppler: No evidence of deep venous thrombus within the bilateral lower extremities. Previous Hypercoagulable work up: Homocystine: 9.3 (within normal limits) Anticardiolipin Ig (<=14) Anti-cardiolipin IgM: antibody: 19 (<=12) Anticardiolipin IgA: <11 (WNL) Anti-beta 2 glycoprotein Ig (greater than 20) Anti-beta-2 glycoprotein IgM: 25 (greater than 20) anti-beta-2 glycoprotein IgA: <9 (within normal limits) Prothrombin gene mutation: [id number] mutation not detected Antithrombin III activity: 109% (within normal limits) Protein C activity: 131% (within normal limits) Protein S activity: 85% (within normal limits) Factor V Leiden mutation: Not detected LUNG, RIGHT MIDDLE LOBE, BRONCHIAL WASHINGS: 1. ALVEOLAR MACROPHAGES AND NEUTROPHILS. SEE COMMENT. 2. NO MALIGNANT CELLS SEEN. MRI Brain: 1. 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 2. Additional foci of subacute ischemic change central left cerebellum and left occipital lobe. 3. Several nonspecific foci of increased signal throughout both cerebral hemispheres unchanged from the prior study 4. No significant postcontrast enhancement MRA Brain::No significant stenosis, occlusion, or aneurysm within the tetlin of [place]. MRA Neck:No significant stenosis, occlusion, or aneurysm within the tetlin of [place]. Carotid Doppler: 1. There is no sonographic evidence of hemodynamically significant stenosis in the right or left carotid arterial system. 2. Antegrade flow is shown in the vertebral arteries. ECHO: * Mass seen on anterior mitral leaflet suggestive of vegetation. * The vegetation measures 2.3 cm across. * There is trace mitral regurgitation. SANDIE::10/08/16 * Mobile vegetation on the anterior leaflet of the mitral valve measuring 1.3 by 1.9 cm. * There is trace mitral regurgitation. ASSESSMENT & PLAN: Hemoptysis with H/O Idiopathic Pulmonary Embolism Was On Xarelto at home for PE S/P bronchoscopy on 10/04/16 - Bronchial washing: Normal bibi; No malignant cells seen on pathology Cultures:pending S/P Tranexamic acid and Xarelto discontinued -likely failure of Xarelto CTA:Negative for PE and Venous Doppler; Negative for DVT Appreciate Pulmonary input ANCA screen:pending Previous Hypercoagulable work up as below: antiphospholipid antibody syndrome RUDDY X2: Negative in past: Less likely SLE Appreciate Hematology input Continue IV heparin and Coumadin Appreciate Rheumatology input Repeat hypercoagulable work up pending Plan to treat with prednisone taper if pleuritic pain persists No more Hemoptysis and clinically better again today Plan to keep PTT ~2.5x and INR 2.5 to 3.0 Increase dose of Coumadin to 10 mg daily Clinic much better INR 2.2 on 10/13/16 Continue Heparin and Coumadin for now INR 2.7 today Likely home this afternoon Noninfective Endocarditis , Libman-Sachs Anterior mitral leaflet suggestive of vegetation on ECHO Continue IV vancomycin and ceftriaxone Follow up blood cultures-negative ID consulted-appreciate Input SANDIE:: * Mobile vegetation on the anterior leaflet of the mitral valve measuring 1.3 by 1.9 cm. * There is trace mitral regurgitation. No more SANDIE now Appreciate ID recommendation Repeat Blood cultures are done-negative No more antibiotics Repeat ECHO-Mitral Vegetation much better New Right Atrial Lesion-likely from PICC tip D/C PICC and Repeat ECHO-if OK will discharge Subacute infarct medial left cerebellum Likely embolic origin from mitral valve vegetation Lipid panel:wnl ECHO:anterior mitral leaflet suggestive of vegetation Carotid Doppler:No significant stenosis Appreciate Neurology input Repeat ECHO tomorrow as above Possible Atypical pneumonia: less likely afebrile, WBC:wnl S/P Levaquin for 4 days Saturating well on RA Oxygen PRN pleuritic chest pain improving Troponin X2 negative, EKG: no signs of ischemia Antibiotics are done Positive FOBT/Hematemesis: Denies any melena or noticing blood in stools On Xarelto at home which is held Appreciate GI input EGD on 09/1716: Gastritis Protonix BID for 2 weeks and then stop Stool for H.Pylori: Plan to treat if positive:pending OK from GI stand point to start anticoagulation:Discussed on 10/05/16 H Pylori -negative Thrombocytopenia: Likely secondary to acute illness Continue to monitor-improving Normalized H/O seizure disorder: stable Continue home meds H/O drug abuse: Patient denies IV drugs Drug screen positive for Marijuana DVT Px: On IV heparin, Coumadin Code Status: Full code Disposition: Continue to monitor Needs follow up with Rheumatology as outpatient: Needs follow up with Hematology Discussed with the parents again and again Clinically better and Improving Likely discharge today following repeat ECHO today if OK Vital Signs: Date Time Temp Pulse Resp B/P Pulse Ox O2 Delivery O2 Flow Rate FiO2 10/14/16 08:00 97 Room Air 10/14/16 07:25 36.6 77 20 125/74 97 10/14/16 04:05 Room Air 10/14/16 04:05 36.9 67 20 115/65 99 Room Air 10/14/16 00:05 Room Air 10/14/16 00:05 97 Room Air 10/13/16 23:18 36.9 74 20 122/74 98 Room Air 10/13/16 20:04 97 Room Air 10/13/16 19:31 37.1 81 18 131/69 97 Room Air 10/13/16 16:27 36.9 81 16 124/68 97 Room Air 10/13/16 16:00 97 Room Air 10/13/16 12:00 97 Room Air 10/13/16 12:00 97 Room Air 10/13/16 11:59 36.5 91 18 122/67 95 Room Air Lab Results: Results Past 24 Hours Test 10/14/16 05:35 Range/Units White Blood Count 7.86 4.8-10.8 K/uL Red Blood Count 4.37 4.7-6.1 M/uL Hemoglobin 12.8 14.0-18.0 g/dL Hematocrit 35.4 42-52 % Mean Corpuscular Volume 81.0 80-100 fL Mean Corpuscular Hemoglobin 29.3 25-34 pg Mean Corpuscular Hemoglobin Concent 36.2 32-36 g/dl RDW Standard Deviation 36.4 36.4-46.3 fL RDW Coefficient of Variation 12.5 11.5-14.5 % Platelet Count 151 130-400 K/uL Mean Platelet Volume 10.3 7.4-10.4 fL Prothrombin Time 29.9 9.0-12.0 SECONDS Prothromb Time International Ratio 2.7 0.9-1.1 Activated Partial Thromboplast Time 64.6 21.0-31.0 SECONDS Partial Thromboplastin Ratio 2.5 Sodium Level 142 136-145 mmol/L Potassium Level 3.6 3.5-5.1 mmol/L Chloride Level 106 98-107 mmol/L Carbon Dioxide Level 27 21-32 mmol/L Anion Gap 9.0 3-11 mmol/L Blood Urea Nitrogen 17 7-18 mg/dl Creatinine 1.40 0.60-1.40 mg/dl Est Creatinine Clear Calc Drug Dose 89.2 ml/min Estimated GFR () 80.4 Estimated GFR (Non- 69.3 BUN/Creatinine Ratio 12.0 10-20 Random Glucose 86 70-99 mg/dl Calcium Level 9.0 8.5-10.1 mg/dl Magnesium Level 1.9 1.8-2.4 mg/dl Total Bilirubin 0.6 0.2-1 mg/dl Aspartate Amino Transf (AST/SGOT) 70 15-37 U/L Alanine Aminotransferase (ALT/SGPT) 181 12-78 U/L Alkaline Phosphatase 106 45-117 U/L Total Protein 7.6 6.4-8.2 gm/dl Albumin 3.9 3.4-5.0 gm/dl Globulin 3.7 2.5-4.0 gm/dl Albumin/Globulin Ratio 1.1 0.9-2
--- NOTE | 2016-10-14 12:33 | Cardiology Progress Note ---
Cardiology Progress Note Date of Service Oct 14, 2016. Cardiology Progress Note A focussed 2D study was performed in reassessment fo the right atrium. Chiari network (normal variant) is noted that is unchanged in appearance compared to prior baseline echocardiogram dated 05/18/17. Since the removal of the PICC line, there has been an interval resolution of the previously noted echodensity visualized on the prior study performed earlier today in the apical 4 chamber view and subcostal views , and therefore it was felt that it was the catheter visualized on the prior study today, rather than a new thrombus. PATIENT STABLE FOR DISCHARGE TODAY FROM CARDIAC PERSPECTIVE. ECHO RESULT REVIEWED WITH PATIENT.
--- NOTE | 2016-10-14 12:35 | ECHOCARDIOGRAM REPORT ---
*NOTICE TO RECEIVING LIBERTARIAN AGENCY This information is strictly Confidential and protected under [place] law. [place] law prohibits you from making any further disclosure of this information unless further disclosure is expressly permitted by the written consent of the person to whom it pertains or is authorized by law. A general authorization for the release of medical or other information is not sufficient for this purpose. Hospital accepts no responsibility if the information is made available to any other person, INCLUDING THE PATIENT. Interpretation Summary * Name: JANE SUTTON Study Date: 10/14/2016 12:10 PM * Patient Location: [facility]\S\[id number]\S\[id number] HR: 69 * : 1990 (M/d/yyyy) Gender: Male Height: 67 in * Age: 26 yrs Ethnicity: CA Weight: 212 lb * Ordering Physician: Eugene Ashley * Referring Physician: Self, Referred * Performed By: Tawanda Rosales RDCS * * Reason For Study: Follow up right atrial abnormality * BSA: 2.1 m2 * -- Conclusions -- * A focused 2D study was performed in reassessment of the right atrium. * Chiari network (normal variant) is noted that is unchanged in appearance compared to prior baseline echocardiogram dated 05/18/17. * Since the removal of the PICC line, there has been an interval resolution of the previously noted echodensity visualized on the prior study performed earlier today in the apical 4 chamber view and subcostal views , and therefore it was felt that it was the catheter visualized on the prior study today, rather than a new thrombus. Procedure Details * A two-dimensional transthoracic echocardiogram, with color flow Doppler was performed. * The study was technically adequate. Atria * Right atrial size is normal. * Chiari network (normal variant) is noted.
[2016-10-14] MEDS ORDERED: LPT40 PO (13:01)
[2016-10-14] MEDS ORDERED: ASPEC81 PO (13:01)
[2016-10-14] MEDS ORDERED: PRT40 PO (13:01)
[2016-10-14] MEDS ORDERED: WARF7.5T PO (13:01)
--- NOTE | 2016-10-14 13:07 | Discharge Instructions ---
Discharge Instructions Date of Service Oct 14, 2016. Admission Reason for Admission: Hemoptysis Discharge Discharge Diagnosis / Problem: Libman sac Endocarditis,Pulmonary Embolism, Possible Antiphospholid Ab Syndr Discharge Goals Goal(s): Prevent Disease Progression Activity Recommendations Activity Limitations: resume your previous activity (Avoid any strenuous activity ) . Instructions / Follow-Up Instructions / Follow-Up Dr Hidalgo on 10/17/16 at 11:30AM ( Dr Boyd is away) Cardiology will call fro appointment and Have regular follow up with Coagulation clinic Current Hospital Diet Patient's current hospital diet: Regular Diet Discharge Diet Recommended Diet: Regular Diet Pending Studies Studies pending at discharge: no Laboratory Results Lipid Panel Test 10/08/16 05:11 Range/Units Triglycerides Level 98 0-150 mg/dl Cholesterol Level 156 0-200 mg/dl HDL Cholesterol 34 mg/dl Cholesterol/HDL Ratio 4.6 LDL Cholesterol, Calculated 102 mg/dl Medical Emergencies . Who to Call and When: Medical Emergencies: If at any time you feel your situation is an emergency, please call 911 immediately. . Non-Emergent Contact Non-Emergency issues call your: Primary Care Provider . Past History Medical & Surgical History: (1) Hemoptysis (2) Epilepsy (3) Depression (4) Seizure (5) Pulmonary embolism (6) History of pulmonary embolism (7) Hematemesis . "Provider Documentation" section prepared by Isabela Gonzales. VTE Core Measure Inpt VTE Proph given/why not?: Unfractionated heparin SQ, Warfarin (Coumadin)
[2016-10-15 08:26] LABS: B2 GLYCOPROTEIN IGA <9 SAU (<=20); B2 GLYCOPROTEIN IGG 86 SGU (<=20); B2 GLYCOPROTEIN IGM 34 SMU (<=20); DRVVT MIX INTERPRETAION Positive; LAC PTT SCREEN 95 sec (<=40)
--- NOTE | 2016-10-15 08:46 | Discharge Summary ---
Discharge Summary Date of Service Oct 15, 2016. Discharge Summary Admission Date: Oct 03, 2016 at 06:57 Discharge Date: Oct 14, 2016 Discharge Disposition: Home Principal Diagnosis: Libman sac Endocarditis,Pulmonary Embolism, Antiphospholipid Ab Syndrome Secondary Diagnoses/Problems: Please see H&P and Progress Notes Procedures: Bronchoscopy Consultations: Hematology,Pulmonary,ID,Cardiology and Neurology Medication Reconciliation New Medications: Warfarin Sodium (Coumadin) 7.5 Mg Tab 1 TAB PO DAILY for 30 Days, #30 TAB 3 Refills Please Keep INR between 2.5 to 3 Aspirin (Aspirin EC Low Dose) 81 Mg Ectab 81 MG PO QAM for 30 Days, #30 Atorvastatin (Atorvastatin Calcium) 40 Mg Tab 40 MG PO QAM for 30 Days, #30 TAB Pantoprazole (Pantoprazole Sodium) 40 Mg Tab 40 MG PO BID for 30 Days, #60 TAB Continued Medications: Acetaminophen (Tylenol) 500 Mg Tab 1000 MG PO Q6 PRN for Pain, TAB Lamotrigine (Lamictal) 200 Mg Tab 200 MG PO BID, TAB Lamotrigine (Lamotrigine) 25 Mg Tab 75 MG PO BID, #120 TAKE WITH 200 MG TOTAL DOSE 275MG BID Levetiracetam (Keppra) 500 Mg Tab 500 MG PO BID, TAB Discontinued Medications: Rivaroxaban (Xarelto) 20 Mg Tab 20 MG PO QPM, #30 Admission Information HPI (per Admitting provider): DATE OF ADMISSION: 10/03/2016 PRIMARY CARE PHYSICIAN: Dr. Boyd. CHIEF COMPLAINT: Vertigo, hemoptysis/hematemesis. HISTORY OF PRESENT ILLNESS: Medical hx significant for seizure disorder, past tobacco abuse, pulmonary embolism on Xarelto. Recent confinement last April 2016 for pulmonary embolism. Patient discharged on Xarelto. Last week, patient was seen at [facility] for URTI symptoms, sinus congestion, drainage, productive cough with yellow sputum attributed to viral symptoms. Supportive management recommended. Cough later noted to be white-yellowish later noted to be bloody. No fever, no chills, no aspiration. Patient also complained of left leg pain and pleuritic substernal pain sx. Px was seen at the Emergency Room a few days ago. LLE Ultrasound negative for DVT. Chest x-ray, slight prominence of interstitium. Platelets noted to be 90. Patient subsequently discharged home. Persistence of hemoptysis symptoms at home. Last night while patient playing video games he noted vertigo symptoms like the room tilted, transient achy headache symptoms. Patient also noted achy epigastric discomfort ffd by blood tinged emesis. No melena, no hematochezia. At the Emergency Room, Protonix given for possible GI bleed. MEDICAL HISTORY: As above. SURGERIES: Tooth extraction. HOME MEDICATIONS: Xarelto, Keppra, lamotrigine, Tylenol. ALLERGIES: TRAMADOL, PENICILLIN. FAMILY HISTORY: Hypertension, kidney stones, seizures. 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 REVIEW OF SYSTEMS: As per HPI, all other ROS negative. PHYSICAL EXAMINATION: VITAL SIGNS: Blood pressure was noted to be 122/72, pulse rate 58, RR 20, temperature 36.3, sats 95 on room air. GENERAL: Noted to be obese, slightly anxious, no respiratory distress. SKIN: Normal color. HEENT: [place] palpebral conjunctivae. Dry mucosa. NECK: Short neck. LUNGS: Decreased breath sounds. Occasional wheeze. HEART: Bradycardic. ABDOMEN: Some distention, nontender. EXTREMITIES: No edema. no tenderness NEUROLOGIC: No gross focality. LABS: Hemoglobin was noted to be 14.1, hematocrit 7.7, white cells 7.4, platelets 89. Sodium 140, potassium 3.7, chloride 105, CO2 26, BUN 23, creatinine 1.1, glucose 104. trop 0 CT initial read showed no evidence of large central PE, suspect small PE left lower lobe, patchy bilateral ground-glass infiltrates, possible pulmonary hemorrhage, edema, inflammatory vs infectious processes, prominent mediastinal lymph nodes. EKG rate 50, sinus bradycardia, no ischemia ASSESSMENT AND PLAN: 1. Hemoptysis multifactorial : pulmonary hemorrhage, ongoing Xarelto intake for PE ? pneumonia, no sepsis ? recurrent PE on initial CT scan read 2. transient vertigo, headache symptoms secondary to illness rule out structural intracranial pathology/ICH 3. blood-tinged emesis swallowed blood versus actual UGIB hemodynamically stable 4. thrombocytopenia 5. seizure disorder stable on meds. PLAN: PCU. Follow CT head, abdomen and pelvis. Appropriate to hold Xarelto for now Consider Tranexamic acid for bleeding. Will check with Hematology. Solu-Medrol 1 dose now for pulm hemorrhage, Levaquin for pneumonia, anti- tussives prn Pulmonary consult for pulmonary hemorrhage ff official CT chest read - new PE on the scan may warrant IVC filter placement ff HH, transfuse prbc if Hg less than 7 and/or symptomatic anemia GI consult if w/ active GI bleed sx DVT prophylaxis SCDs re bleed. Full code. Dictated: 10/03/16 0640 Transcribed: 10/03/16 0732 <Electronically signed by Tawanda Prakash M.D.> Signed: 10/03/16 0959 MAS Tawanda Prakash M.D. Hospital Course Hemoptysis with H/O Idiopathic Pulmonary Embolism Was On Xarelto at home for PE S/P bronchoscopy on 10/04/16 - Bronchial washing: Normal bibi; No malignant cells seen on pathology Cultures:pending S/P Tranexamic acid and Xarelto discontinued -likely failure of Xarelto CTA:Negative for PE and Venous Doppler; Negative for DVT Appreciate Pulmonary input ANCA screen:pending Previous Hypercoagulable work up as below: antiphospholipid antibody syndrome RUDDY X2: Negative in past: Less likely SLE Appreciate Hematology input Continue IV heparin and Coumadin Appreciate Rheumatology input Repeat hypercoagulable work up pending Plan to treat with prednisone taper if pleuritic pain persists No more Hemoptysis and clinically better again today Plan to keep PTT ~2.5x and INR 2.5 to 3.0 Increase dose of Coumadin to 10 mg daily Clinic much better INR 2.2 on 10/13/16 Continue Heparin and Coumadin for now INR 2.7 today Likely home this afternoon Noninfective Endocarditis , Libman-Sachs Anterior mitral leaflet suggestive of vegetation on ECHO Continue IV vancomycin and ceftriaxone Follow up blood cultures-negative ID consulted-appreciate Input SANDIE:: * Mobile vegetation on the anterior leaflet of the mitral valve measuring 1.3 by 1.9 cm. * There is trace mitral regurgitation. No more SANDIE now Appreciate ID recommendation Repeat Blood cultures are done-negative No more antibiotics Repeat ECHO-Mitral Vegetation much better New Right Atrial Lesion-likely from PICC tip D/C PICC and Repeat ECHO-if OK will discharge Subacute infarct medial left cerebellum Likely embolic origin from mitral valve vegetation Lipid panel:wnl ECHO:anterior mitral leaflet suggestive of vegetation Carotid Doppler:No significant stenosis Appreciate Neurology input Repeat ECHO tomorrow as above Possible Atypical pneumonia: less likely afebrile, WBC:wnl S/P Levaquin for 4 days Saturating well on RA Oxygen PRN pleuritic chest pain improving Troponin X2 negative, EKG: no signs of ischemia Antibiotics are done Positive FOBT/Hematemesis: Denies any melena or noticing blood in stools On Xarelto at home which is held Appreciate GI input EGD on 09/1716: Gastritis Protonix BID for 2 weeks and then stop Stool for H.Pylori: Plan to treat if positive:pending OK from GI stand point to start anticoagulation:Discussed on 10/05/16 H Pylori -negative Thrombocytopenia: Likely secondary to acute illness Continue to monitor-improving Normalized H/O seizure disorder: stable Continue home meds H/O drug abuse: Patient denies IV drugs Drug screen positive for Marijuana DVT Px: On IV heparin, Coumadin Code Status: Full code Disposition: Continue to monitor Needs follow up with Rheumatology as outpatient: Needs follow up with Hematology Discussed with the parents again and again Clinically better and Improving Likely discharge today following repeat ECHO today if OK Total time spent on discharge = 40 minutes This includes examination of the patient, discharge planning, medication reconciliation, and communication with other providers. Discharge Instructions Date of Service Oct 14, 2016. Admission Reason for Admission: Hemoptysis Discharge Discharge Diagnosis / Problem: Libman sac Endocarditis,Pulmonary Embolism, Possible Antiphospholid Ab Syndr Discharge Goals Goal(s): Prevent Disease Progression Activity Recommendations Activity Limitations: resume your previous activity (Avoid any strenuous activity ) . Instructions / Follow-Up Instructions / Follow-Up Dr Hidalgo on 10/17/16 at 11:30AM ( Dr Boyd is away) Cardiology will call fro appointment and Have regular follow up with Coagulation clinic Current Hospital Diet Patient's current hospital diet: Regular Diet Discharge Diet Recommended Diet: Regular Diet Pending Studies Studies pending at discharge: no Laboratory Results Lipid Panel Test 10/08/16 05:11 Range/Units Triglycerides Level 98 0-150 mg/dl Cholesterol Level 156 0-200 mg/dl HDL Cholesterol 34 mg/dl Cholesterol/HDL Ratio 4.6 LDL Cholesterol, Calculated 102 mg/dl Medical Emergencies . Who to Call and When: Medical Emergencies: If at any time you feel your situation is an emergency, please call 911 immediately. . Non-Emergent Contact Non-Emergency issues call your: Primary Care Provider . Past History Medical & Surgical History: (1) Hemoptysis (2) Epilepsy (3) Depression (4) Seizure (5) Pulmonary embolism (6) History of pulmonary embolism (7) Hematemesis . "Provider Documentation" section prepared by Isabela Gonzales. VTE Core Measure Inpt VTE Proph given/why not?: Unfractionated heparin SQ, Warfarin (Coumadin) <Electronically signed by Isabela Gonzales M.D.> Signed: 10/14/16 9827 Additional Copies To Mukesh Boyd M.D.
[2016-10-15 13:44] LABS: DRVVT 1:1(REFLEX!DO NOT ORDER) NOT CORRECTED (CORRECTED); DRVVTNEUT(REFLEX!DO NOT ORDER) Positive (Negative); THROMBIN TIME(REFLEX!DO NOTORD 16 sec (13-19)
[2016-11-01 17:49] LABS: HERPES SIMPLEX CULT SOURCE OTHER-BRONCH LAVAGE; HERPES SIMPLEX VIRUS CULT NOT ISOLATED (NOT ISOLATED)
[2017-02-08] MEDS ORDERED: ACET-1256 PO (10:56)
[2017-02-08] MEDS ORDERED: ASPI81TA28 PO (14:11)
[2017-02-08] MEDS ORDERED: PANT40TA2 PO (16:15)
== END 2016-10-14 14:56 | disposition home or self-care (01) | DRG 987 ==
LOC: ENRESERVDT → ENRESERVTM → C.EDB 03:32 → C.MED 06:57 → C.MSICU 10-07 16:25 → C.2E 10-08 14:35 → C.MED 10-13 02:37
PROVIDERS: ADMIT Internal Medicine; ATTEND Internal Medicine
PROC: 0B9D8ZX Drainage of Right Middle Lung Lobe, Via Natural or Artificial Opening Endoscopic, Diagnostic (ICD-10-PCS; principal; 2016-10-04)
PROC: 0DJ08ZZ Inspection of Upper Intestinal Tract, Via Natural or Artificial Opening Endoscopic (ICD-10-PCS; 2016-10-05)
PROC: 02HV33Z Insertion of Infusion Device into Superior Vena Cava, Percutaneous Approach (ICD-10-PCS; 2016-10-11)
DX: M32.11 Endocarditis in systemic lupus erythematosus (principal); I26.99 Other pulmonary embolism without acute cor pulmonale; J18.9 Pneumonia, unspecified organism; I63.442 Cerebral infarction due to embolism of left cerebellar artery; D68.61 Antiphospholipid syndrome; E87.2 Acidosis; N17.9 Acute kidney failure, unspecified; G40.909 Epilepsy, unspecified, not intractable, without status epilepticus; Z87.891 Personal history of nicotine dependence; D69.6 Thrombocytopenia, unspecified; Z88.0 Allergy status to penicillin; Z79.01 Long term (current) use of anticoagulants; K29.70 Gastritis, unspecified, without bleeding; F90.9 Attention-deficit hyperactivity disorder, unspecified type; Z82.49 Family history of ischemic heart disease and other diseases of the circulatory system

== ENCOUNTER 2016-11-06 13:55 | Emergency (ER) | payer BC ==
[~2016-11-06] VITALS: Ht 172.7 cm; Wt 101.1 kg
[~2016-11-06 13:55] MED LIST changes: +ASPEC81 PO; +LPT40 PO; +PRT40 PO; +WARF7.5T PO; -XRL20 PO
[2016-11-06 13:57] VITALS: BP 133/78; PULSE 77; TEMP 36.7; O2SAT 95; Ht 172.7 cm; Wt 101.1 kg
[2016-11-06] MEDS ORDERED: LAMO200T PO (14:11)
[2016-11-06] MEDS ORDERED: PANT1TAB48 PO (14:11)
[2016-11-06] MEDS ORDERED: WARF7.5T PO ×2 (14:11)
[2016-11-06] MEDS ORDERED: LAMO25TA PO (14:11)
[2016-11-06] MEDS ORDERED: ATOR-24 PO (14:11)
--- NOTE | 2016-11-06 14:36 | DIAGNOSTIC IMAGING REPORT ---
CHEST ONE VIEW PORTABLE CLINICAL HISTORY: Cough. Hemoptysis. COMPARISON STUDY: 10/11/2016 FINDINGS: The cardiac and mediastinal contours are normal. There is no evidence of focal pulmonary consolidation. There is no evidence of failure. No pleural effusions are visualized.[ Minimally increased markings persist at the level the left costophrenic angle. The right-sided PICC catheter has been removed. IMPRESSION: Interval removal of the right-sided PICC catheter. No acute findings. Electronically signed by: Haider Rob M.D. 11/06/2016 2:34 PM Dictated Date/Time: 11/06/2016 2:33 PM
--- NOTE | 2016-11-06 15:19 | EMERGENCY ROOM VISIT NOTE ---
History Report prepared by Ileana: Sanchez Galeas Under the Supervision of: Dr. Baron Grey D.O. 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 He notes he was in the shower, and was coughing up clear liquid with some blood. This happened 2 to 3 times, and he notes an approximate total volume of about 0.5 teaspoons. He emailed his underwater welder who said to come to the ER. The patient also notes having some mild, 2/10 chest pain at work today, and some shortness of breath which is relieved with rest and worsened with exertion at work. He adds he currently has some sharp abdominal pain with deep breathing. The patient had a stroke about 1 month ago while he was on Xarelto. He is currently on Warfarin, and no longer on Xarelto. Source of History: patient Onset: 3 hours ago Position: other (lungs) Quality: other (cough) Timing: other (episode) Associated Symptoms: + SOB, + abdominal pain, + chest pain Review of Systems See HPI for pertinent positives & negatives. A total of 10 systems reviewed and were otherwise negative. 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 Current/Historical Medications Scheduled Aspirin (Aspirin Ec), 81 MG PO DAILY Atorvastatin (Lipitor), 40 MG PO QAM Lamotrigine (Lamictal), 75 MG PO BID Lamotrigine (Lamictal), 200 MG PO BID Levetiracetam (Keppra), 500 MG PO BID Pantoprazole (Protonix), 40 MG PO DAILY Warfarin Sodium (Coumadin), 7.5 MG PO 4XWK Warfarin Sodium (Coumadin), 11.25 TAB PO 3XWK Scheduled PRN Acetaminophen (Tylenol), 1,000 MG PO Q6 PRN for Pain Allergies Coded Allergies: Tramadol (Verified Allergy, Severe, SHORTNESS OF BREATH, 11/06/16) lowers seizure threshold Penicillins (Verified Allergy, Unknown, HIVES AND MILD WHEEZING, 11/06/16) Physical Exam Vital Signs Date Time Temp Pulse Resp B/P Pulse Ox O2 Delivery O2 Flow Rate FiO2 11/06/16 13:57 36.7 77 18 133/78 95 Physical Exam CONSTITUTIONAL/VITAL SIGNS: Reviewed / noted above. GENERAL: Non-toxic in appearance. INTEGUMENTARY: Warm, dry, and [place]. HEAD: Normocephalic. EYES: without scleral icterus or trauma. ENT/OROPHARYNX: clear and moist. LYMPHADENOPATHY/NECK: Is supple without lymphadenopathy or meningismus. RESPIRATORY: Lungs clear and equal. CARDIOVASCULAR: Regular rate and rhythm. GI/ABDOMEN: Soft and nontender. No organomegaly or pulsatile mass. No rebound or guarding. Normal bowel sounds. EXTREMITIES: Warm and well perfused. BACK: No CVA tenderness. NEUROLOGICAL: Intact without focal deficits. PSYCHIATRIC: normal affect. MUSCULOSKELETAL: Normally developed with good muscle tone. Medical Decision & Procedures ER Provider Diagnostic Interpretation: Radiology results as stated below per my review and radiologist interpretation: CHEST ONE VIEW PORTABLE FINDINGS: The cardiac and mediastinal contours are normal. There is no evidence of focal pulmonary consolidation. There is no evidence of failure. No pleural effusions are visualized.[ Minimally increased markings persist at the level the left costophrenic angle. The right-sided PICC catheter has been removed. IMPRESSION: Interval removal of the right-sided PICC catheter. No acute findings. Electronically signed by: Haider Rob M.D. 11/06/2016 2:34 PM Dictated Date/Time: 11/06/2016 2:33 PM Laboratory Results Test 11/06/16 14:51 Bedside Prothrombin Time INR 3.3 (0.9-1.1) ED Course 1416: Previous medical records were reviewed. The patient was evaluated in room C12B. A complete history and physical examination was performed. 1525: On reevaluation, the patient is doing well. I discussed the results and findings with the patient. He verbalized agreement of the treatment plan. The patient was discharged home. Medical Decision the differential was considered includes acute myocardial infarction, acute coronary syndrome, myocarditis, pericarditis, pericardial effusions /tamponad, esophageal perforation, thoracic aortic dissection, pulmonary embolism, pneumonia, pneumothorax, pancreatitis, shingles, acute cholecystitis, perforated abdominal viscus. This is a 26-year-old male who presents to the ED with a chief complaint of coughing up a little blood this morning. The patient states that he was taking a shower and coughed up some clear sputum with some blood tinge in it. This occurred around 11 AM. He states that he also had a little chest pain while he was at work today around 1:00. He also had a little shortness of breath with exertion. The patient is currently on warfarin for history of PE. He is on life long anticoagulation for antiphospholipid antibody. The patient's exam was normal. He is in no distress. His vital signs are normal. He is afebrile. A chest x-ray did not show acute disease. INR is 3.3. The patient was told the results. He is to follow-up with his PCP. He will return for worsening or other concerns. Impression Primary Impression: Cough Additional Impression: Cough with hemoptysis Scribe Attestation The scribe's documentation has been prepared under my direction and personally reviewed by me in its entirety. I confirm that the note above accurately reflects all work, treatment, procedures, and medical decision making performed by me. Departure Information Dispostion Home / Self-Care Referrals Mukesh Boyd M.D. (PCP) Patient Instructions My [facility] Additional Instructions Your INR today is 3.3. Chest x-ray did not show any abnormalities. Follow-up with your doctors. Return for any concerns. Problem Qualifiers
[2017-02-08] MEDS ORDERED: ACET-1256 PO (10:56)
[2017-02-08] MEDS ORDERED: ASPI81TA28 PO (14:11)
[2017-02-08] MEDS ORDERED: PANT40TA2 PO (16:15)
== END 2016-11-06 15:51 | disposition home or self-care (01) ==
LOC: C.EDB 13:56 → C.EDC 15:51
DX: R04.2 Hemoptysis (principal); R06.02 Shortness of breath; R10.9 Unspecified abdominal pain; F32.9 Major depressive disorder, single episode, unspecified; G40.909 Epilepsy, unspecified, not intractable, without status epilepticus; Z86.73 Personal history of transient ischemic attack (TIA), and cerebral infarction without residual deficits; Z79.01 Long term (current) use of anticoagulants; Z79.82 Long term (current) use of aspirin; Z87.891 Personal history of nicotine dependence; Z86.711 Personal history of pulmonary embolism; Z82.49 Family history of ischemic heart disease and other diseases of the circulatory system; Z84.1 Family history of disorders of kidney and ureter; Z82.0 Family history of epilepsy and other diseases of the nervous system

== ENCOUNTER 2017-02-08 14:34 | Emergency (ER) | payer BC ==
[~2017-02-08] VITALS: Ht 172.7 cm; Wt 93.2 kg
[~2017-02-08 14:34] MED LIST changes: +ACET-1256 PO; -ASPEC81 PO; +ASPI81TA28 PO; +ATOR-24 PO; +LAMO200T PO; -LAMO200T38 PO; +LAMO25TA PO; -LMC25 PO; -LPT40 PO; +PANT1TAB48 PO; -PRT40 PO
[2017-02-08 14:40] VITALS: TEMP 36.5; Ht 172.7 cm; Wt 93.2 kg
[2017-02-08] MEDS ORDERED: ONDANSETRON INJ 2 MG/ML 2 ML VIAL IV STA ×2 (15:43→20:14)
[2017-02-08] MEDS ORDERED: SODIUM CHLORIDE 0.9% 1000ML 1,000 ML IV STA (15:43)
--- NOTE | 2017-02-08 15:48 | EMERGENCY ROOM VISIT NOTE ---
History First contact with patient: 15:33 Chief Complaint: ABDOMINAL PAIN Stated Complaint: ABDOMINAL PAIN, FATIQUE, CHILLS, NAUSEA, History of Present Illness The patient is a 26 year old male who presents to the Emergency Room with complaints of right lower quadrant abdominal pain that started yesterday afternoon. Patient reports the pain as sharp and stabbing, intermittent, worse with movement, better with rest, currently 2/10. Associated symptoms of nausea , chills, decreased appetite. Patient states he did not have a bowel movement yesterday, and today he had a very small bowel movement that was diarrhea. He denies any blood in the stool. Patient states that last night he smoked some marijuana to try to increase his appetite, he states he did eat something and the marijuana seemed to help with his pain, but again this morning he did not have any appetite and the pain was worse again. Patient does have a clotting disorder for which he takes Coumadin and Lipitor, he states these are doing well and he has not missed any doses. Patient denies fevers, neck pain, chest pain, shortness of breath, vomiting, urinary symptoms, rash. Review of Systems A complete 10 point review of systems was reviewed with the patient with pertinent positives and negatives as per history of present illness. All else were negative. Past Medical/Surgical History Medical Problems: (1) Bronchitis (2) Depression (3) Epilepsy (4) History of stroke (5) Pneumonia (6) Pulmonary embolism (7) Seizure Surgical Problems: (1) H/O wisdom tooth extraction Family History Heart disease Hypertension Kidney stones Seizures Social History Smoking Status: Former Smoker Alcohol Use: occasionally Drug Use: marijuana Marital Status: single Housing Status: lives with family Occupation Status: employed, student Current/Historical Medications Scheduled Aspirin (Aspirin Ec), 81 MG PO DAILY Atorvastatin (Atorvastatin Calcium), 40 MG PO QAM Lamotrigine (Lamictal), 200 MG PO BID Lamotrigine (Lamotrigine), 100 MG PO BID Levetiractam (Levetiracetam), 500 MG PO BID Pantoprazole (Pantoprazole Sodium), 40 MG PO DAILY Warfarin Sodium (Warfarin Sodium), 11.25 MG PO 6XWK Warfarin Sodium (Warfarin Sodium), 7.5 MG PO WK Scheduled PRN Acetaminophen (Tylenol), 1,000 MG PO Q6H PRN for Pain Physical Exam Vital Signs Date Time Temp Pulse Resp B/P (MAP) Pulse Ox O2 Delivery O2 Flow Rate FiO2 02/08/17 20:38 65 20 150/90 98 02/08/17 19:37 56 20 130/79 97 Room Air 02/08/17 17:41 50 18 107/58 96 Room Air 02/08/17 16:20 54 02/08/17 16:10 52 20 116/69 98 Room Air 02/08/17 14:40 36.5 75 18 127/77 95 Room Air Physical Exam CONSTITUTIONAL: No acute distress. Well appearing and well nourished. Alert and oriented X 4 with normal affect. HEENT: Normocephalic, atraumatic. Pupils equal, round and reactive to light, EOMI. TMs normal. Pharynx normal. NECK: Supple, full active range of motion without discomfort. RESPIRATORY: Clear to auscultation bilaterally with no wheezing, crackles, rhonchi or stridor. Equal expansion bilaterally. CARDIOVASCULAR: Regular rate and rhythm with no murmurs, rubs or gallops. Normal peripheral perfusion. No edema. GASTROINTESTINAL: Moderate tenderness to palpation in the RLQ abdomen. McBurney' s point tenderness and positive rebound. Soft, nondistended. Hypoactive bowel sounds present in all quadrants. MUSCULOSKELETAL: Full range of motion of all joints without discomfort. INTEGUMENTARY: No rash or other significant dermatologic conditions noted. NEUROLOGIC: Cranial nerves II-XII grossly intact. No focal neurologic deficits noted. Medical Decision & Procedures ER Provider Diagnostic Interpretation: CT ABD/PELVIS IV AND ORAL CONT CLINICAL HISTORY: General is abdominal pain, chills, nausea, COMPARISON STUDY: 10/03/2016, TECHNIQUE: Following the IV administration of 116 mL of Optiray-320, CT scan of the abdomen and pelvis was performed from the lung bases to the proximal femurs. Images are reviewed in the axial, sagittal, and coronal planes. IV contrast was administered without complication. A dose lowering technique was utilized adhering to the principles of ALARA. CT DOSE: 465.95 mGy.cm FINDINGS: Lower chest: There are very subtle right lower lobe groundglass opacities. These could be atelectatic or reflection of a minimal pneumonitis. These are markedly improved compared the prior September 2016 study. There is a stable 4 mm subpleural left lower lobe pulmonary nodule Liver: The contrast-enhanced liver is normal in size, contour, and attenuation. There is no intrahepatic biliary ductal dilatation. The hepatic veins and portal veins are patent. Gallbladder: Unremarkable. Spleen: The spleen is prominent measuring 13 cm. Pancreas: Unremarkable. Adrenal glands: Unremarkable. Kidneys: There is symmetric renal cortical enhancement. The kidneys are normal in size without hydronephrosis. Bowel: There are no transition zones indicate bowel obstruction. There is no acute diverticulitis. The appendix appears normal. Peritoneum: There is no intraperitoneal free air or abdominal ascites. Vasculature: The abdominal aorta is normal in course and caliber. Adenopathy: None. Pelvic viscera: The bladder, and pelvic viscera are unremarkable. Skeletal structures: There is L5 limbus vertebra. There is a small disc osteophyte complex at the T12-L1 level. IMPRESSION: 1. No evidence of bowel obstruction. No evidence of free air 2. Normal appendix 3. No evidence of acute diverticulitis 4. Near complete resolution of the previously identified lower lobe groundglass pulmonary opacities with minimal right lower lobe residual. Laboratory Results 02/08/17 15:56 Red Blood Count 5.35, Mean Corpuscular Volume 82.4, Mean Corpuscular Hemoglobin 29.3, Mean Corpuscular Hemoglobin Concent 35.6, Mean Platelet Volume 9.8, Neutrophils (%) (Auto) 59.3, Lymphocytes (%) (Auto) 27.5, Monocytes (%) (Auto) 9.2, Eosinophils (%) (Auto) 3.1, Basophils (%) (Auto) 0.7, Neutrophils # (Auto) 2.70, Lymphocytes # (Auto) 1.25, Monocytes # (Auto) 0.42, Eosinophils # (Auto) 0.14, Basophils # (Auto) 0.03 02/08/17 15:56 Test 02/08/17 15:56 02/08/17 16:00 White Blood Count 4.55 K/uL (4.8-10.8) Red Blood Count 5.35 M/uL (4.7-6.1) Hemoglobin 15.7 g/dL (14.0-18.0) Hematocrit 44.1 % (42-52) Mean Corpuscular Volume 82.4 fL (80-100) Mean Corpuscular Hemoglobin 29.3 pg (25-34) Mean Corpuscular Hemoglobin Concent 35.6 g/dl (32-36) Platelet Count 196 K/uL (130-400) Mean Platelet Volume 9.8 fL (7.4-10.4) Neutrophils (%) (Auto) 59.3 % Lymphocytes (%) (Auto) 27.5 % Monocytes (%) (Auto) 9.2 % Eosinophils (%) (Auto) 3.1 % Basophils (%) (Auto) 0.7 % Neutrophils # (Auto) 2.70 K/uL (1.4-6.5) Lymphocytes # (Auto) 1.25 K/uL (1.2-3.4) Monocytes # (Auto) 0.42 K/uL (0.11-0.59) Eosinophils # (Auto) 0.14 K/uL (0-0.5) Basophils # (Auto) 0.03 K/uL (0-0.2) RDW Standard Deviation 36.0 fL (36.4-46.3) RDW Coefficient of Variation 12.1 % (11.5-14.5) Immature Granulocyte % (Auto) 0.2 % Immature Granulocyte # (Auto) 0.01 K/uL (0.00-0.02) Prothrombin Time 42.0 SECONDS (9.0-12.0) Prothromb Time International Ratio 3.7 (0.9-1.1) Activated Partial Thromboplast Time 56.4 SECONDS (21.0-31.0) Partial Thromboplastin Ratio 2.2 Anion Gap 5.0 mmol/L (3-11) Est Creatinine Clear Calc Drug Dose 89.3 ml/min Estimated GFR () 80.4 Estimated GFR (Non- 69.3 BUN/Creatinine Ratio 12.7 (10-20) Calcium Level 9.4 mg/dl (8.5-10.1) Total Bilirubin 1.0 mg/dl (0.2-1) Direct Bilirubin 0.3 mg/dl (0-0.2) Aspartate Amino Transf (AST/SGOT) 37 U/L (15-37) Alanine Aminotransferase (ALT/SGPT) 71 U/L (12-78) Alkaline Phosphatase 94 U/L (45-117) Total Protein 8.0 gm/dl (6.4-8.2) Albumin 4.3 gm/dl (3.4-5.0) Lipase 129 U/L (73-393) Urine Color YELLOW Urine Appearance CLEAR (CLEAR) Urine pH 7.0 (4.5-7.5) Urine Specific [place] 1.017 (1.000-1.030) Urine Protein NEG (NEG) Urine Glucose (UA) NEG (NEG) Urine Ketones NEG (NEG) Urine Occult Blood NEG (NEG) Urine Nitrite NEG (NEG) Urine Bilirubin NEG (NEG) Urine Urobilinogen NEG (NEG) Urine Leukocyte Esterase NEG (NEG) Medications Administered Medications (Trade) Dose Ordered Sig/Brianda Route Start Time Stop Time Status Last Admin Dose Admin Sodium Chloride 1,000 ml @ 999 mls/hr Q1H1M STAT IV 02/08/17 15:43 02/08/17 16:43 DC 02/08/17 16:09 999 MLS/HR Ondansetron HCl (Zofran Inj) 4 mg NOW STAT IV 02/08/17 15:43 02/08/17 15:46 DC 02/08/17 16:08 4 MG Ondansetron HCl (Zofran Inj) 4 mg NOW STAT IV 02/08/17 20:14 02/08/17 20:15 DC 02/08/17 20:35 4 MG Medical Decision CC: Patient presenting with complaint of right lower quadrant abdominal pain Interpretation of Labs: No leukocytosis, no anemia, significant electrolyte abnormalities, normal renal function, normal liver enzymes and lipase, no UTI. Mildly supratherapeutic PT/INR. Differential Diagnosis: Includes, but not limited to appendicitis, mesenteric adenitis, gastroenteritis, musculoskeletal strain/sprain, diverticulitis, among others. Medication Reconciliation: I attest that I have personally reviewed the patient' s current medication list. Vital signs review: I reviewed the patient's vital signs and interpret them as follows: T: Afebrile; BP: Normotensive; HR: Within normal limits; RR: Within normal limits; Pulse Ox: Within normal limits on room air. Blood pressure screening: The patient was found to have normal blood pressure on screening and does not require follow-up for repeat blood pressure check. Summary: Patient was evaluated at bedside, history of physical exam performed. Patient is alert and in no acute distress, resting quietly on the stretcher. Abdomen is soft, nondistended, with hypoactive bowel sounds. He has positive McBurney's point tenderness as well as rebound tenderness concerning for appendicitis. Orders were placed at bedside for labs, UA, IV fluid bolus, nausea medication, abdominal ultrasound and CT abdomen and pelvis to evaluate for appendicitis. Patient discussed with Dr. Linares, who agrees with my assessment and plan. Labs reviewed as above, no acute abnormalities. INR is slightly supratherapeutic, patient was instructed to have follow-up blood work done in the next few days. CT reviewed, no acute abnormalities and negative for appendicitis. Patient reassessed multiple times throughout ED stay, his pain is improved after morphine and IV fluids and he feels well to go home. Patient was updated on all results for discharge. He was instructed to follow closely with his PCP, he verbalized understanding. He was discharged home in stable condition and ambulatory. Impression Primary Impression: Right lower quadrant abdominal pain of unknown etiology Departure Information Dispostion Home / Self-Care Condition GOOD Referrals Mukesh Boyd M.D. (PCP) Patient Instructions ED Abdominal Pain Unkn Cause, My [facility] Additional Instructions You have been treated in the Emergency Department your Abdominal Pain. Laboratory results and imaging studies have ruled out any emergent causes for your abdominal pain which would warrant admission or surgery. You may take your home zofran as needed for nausea/vomiting. Take as prescribed. For pain control, you can use the following [id number] medicines (if >12 yo): - Regular strength (325mg/tab) Tylenol (acetaminophen) 2 tabs every 4-6 hours as needed. Do not exceed 10 tablets in a 24 hour period. Avoid taking more than 3 grams (3000 mg) of Tylenol per day. This includes any other sources of acetaminophen you may take on a regular basis. - Regular strength (200 mg/tab) Advil (ibuprofen) 1-2 tabs every 4-6 hours as needed. Do not exceed a dose of 3200 mg per day. Drink plenty of fluids and stay well hydrated. As with any trip to the Emergency Department, you should follow-up with your Primary Care Provider in 2-3 days from today's visit. Return to the emergency department if your symptoms persist despite treatment plan outlined above or if the following symptoms occur: Severe worsening pain, fevers/chills, persistent vomiting or vomiting up blood, blood in your stool or urine, severe dizziness or passing out, or any other concerns.
[2017-02-08 16:10] LABS: BASO % 0.7 %; BASO ABS # 0.03 K/uL (0-0.2); COMPLETE YES; EOS % 3.1 %; HEMATOCRIT 44.1 % (42-52); IG% 0.2 %; LYMPH % 27.5 %; LYMPH ABS # 1.25 K/uL (1.2-3.4); MEAN CELL VOLUME 82.4 fL (80-100); MEAN CORPUSCULAR HEMOGLOBIN 29.3 pg (25-34); MEAN CORPUSCULAR HGB CONC 35.6 g/dl (32-36); MEAN PLATELET VOLUME 9.8 fL (7.4-10.4); MONO % 9.2 %; NEUT % 59.3 %; PLATELET COUNT 196 K/uL (130-400); RED BLOOD COUNT 5.35 M/uL (4.7-6.1); WHITE BLOOD COUNT 4.55 K/uL (4.8-10.8)
[2017-02-08] MEDS ORDERED: PRT/40 PO (16:15)
[2017-02-08] MEDS ORDERED: WARF-284 PO ×2 (16:15)
[2017-02-08] MEDS ORDERED: LMC25 PO (16:15)
[2017-02-08] MEDS ORDERED: LEVE500T PO (16:15)
[2017-02-08] MEDS ORDERED: LPT40 PO (16:15)
[2017-02-08] MEDS ORDERED: LAMO200T38 PO (16:15)
[2017-02-08 16:32] LABS: BUN/CREATININE RATIO 12.7 (10-20); CALCIUM 9.4 mg/dl (8.5-10.1); CREATININE 1.4 mg/dl (0.60-1.40); INR 3.7 (0.9-1.1); PARTIAL THROMBOPLASTIN RATIO 2.2; POTASSIUM 3.8 mmol/L (3.5-5.1)
--- NOTE | 2017-02-08 18:39 | DIAGNOSTIC IMAGING REPORT ---
APPENDIX ULTRASOUND HISTORY: Abdominal pain, chills and nausea. Evaluate for acute appendicitis. COMPARISON: CT of the abdomen and pelvis October 03, 2016. FINDINGS: The appendix was not visualized by sonography. No mass, fluid collection or other sonographic abnormality was identified within the right quadrant IMPRESSION: Nonvisualization of the appendix. If persistent clinical concern for acute appendicitis, a CT is recommended. Electronically signed by: Fernando Pérez M.D. 02/08/2017 6:38 PM Dictated Date/Time: 02/08/2017 6:37 PM
[2017-02-08 19:07] LABS: URINE APPEARANCE CLEAR (CLEAR); URINE BILIRUBIN NEG (NEG); URINE COLOR YELLOW; URINE NITRITE NEG (NEG); URINE SPECIFIC GRAVITY 1.017 (1.000-1.030); UROBILINOGEN NEG (NEG)
[2017-02-08 19:13] LABS: MANUAL MICROSCOPIC REQUIRED? NO; REVIEW REQ? NO
[2017-02-08] MEDS ORDERED: OPTIRAY 320 IV PRN (19:15)
--- NOTE | 2017-02-08 19:18 | DIAGNOSTIC IMAGING REPORT ---
CT ABD/PELVIS IV AND ORAL CONT CLINICAL HISTORY: General is abdominal pain, chills, nausea, COMPARISON STUDY: 10/03/2016, TECHNIQUE: Following the IV administration of 116 mL of Optiray-320, CT scan of the abdomen and pelvis was performed from the lung bases to the proximal femurs. Images are reviewed in the axial, sagittal, and coronal planes. IV contrast was administered without complication. A dose lowering technique was utilized adhering to the principles of ALARA. CT DOSE: 465.95 mGy.cm FINDINGS: Lower chest: There are very subtle right lower lobe groundglass opacities. These could be atelectatic or reflection of a minimal pneumonitis. These are markedly improved compared the prior September 2016 study. There is a stable 4 mm subpleural left lower lobe pulmonary nodule Liver: The contrast-enhanced liver is normal in size, contour, and attenuation. There is no intrahepatic biliary ductal dilatation. The hepatic veins and portal veins are patent. Gallbladder: Unremarkable. Spleen: The spleen is prominent measuring 13 cm. Pancreas: Unremarkable. Adrenal glands: Unremarkable. Kidneys: There is symmetric renal cortical enhancement. The kidneys are normal in size without hydronephrosis. Bowel: There are no transition zones indicate bowel obstruction. There is no acute diverticulitis. The appendix appears normal. Peritoneum: There is no intraperitoneal free air or abdominal ascites. Vasculature: The abdominal aorta is normal in course and caliber. Adenopathy: None. Pelvic viscera: The bladder, and pelvic viscera are unremarkable. Skeletal structures: There is L5 limbus vertebra. There is a small disc osteophyte complex at the T12-L1 level. IMPRESSION: 1. No evidence of bowel obstruction. No evidence of free air 2. Normal appendix 3. No evidence of acute diverticulitis 4. Near complete resolution of the previously identified lower lobe groundglass pulmonary opacities with minimal right lower lobe residual. Electronically signed by: Haider Rob M.D. 02/08/2017 7:17 PM Dictated Date/Time: 02/08/2017 7:12 PM
[2017-02-08 20:38] VITALS: BP 150/90; PULSE 65; O2SAT 98
== END 2017-02-08 20:44 | disposition home or self-care (01) ==
LOC: C.EDB 14:35 → C.EDA 20:44
DX: R10.31 Right lower quadrant pain (principal); G40.909 Epilepsy, unspecified, not intractable, without status epilepticus; F32.9 Major depressive disorder, single episode, unspecified; Z86.711 Personal history of pulmonary embolism; Z87.891 Personal history of nicotine dependence; Z79.82 Long term (current) use of aspirin; Z79.01 Long term (current) use of anticoagulants; Z79.899 Other long term (current) drug therapy; Z82.49 Family history of ischemic heart disease and other diseases of the circulatory system; Z84.1 Family history of disorders of kidney and ureter; Z82.0 Family history of epilepsy and other diseases of the nervous system

== ENCOUNTER 2017-04-11 12:38 | Emergency (ER) | payer BC ==
[~2017-04-11] VITALS: Ht 170.2 cm; Wt 90.8 kg
[~2017-04-11 12:38] MED LIST changes: -ATOR-24 PO; -LAMO200T PO; +LAMO200T38 PO; -LAMO25TA PO; +LEVE500T PO; -LEVE500T13 PO; +LMC25 PO; +LPT40 PO; -PANT1TAB48 PO; +PRT/40 PO; +WARF-284 PO; -WARF7.5T PO
[2017-04-11 12:42] VITALS: TEMP 36.8; Ht 170.2 cm; Wt 90.8 kg
--- NOTE | 2017-04-11 13:41 | EMERGENCY ROOM VISIT NOTE ---
History First contact with patient: 13:11 Chief Complaint: RESPIRATORY PROBLEMS Stated Complaint: MILD CHEST PAIN, COUGHING UP BROWN/YELLOW FLEM Nursing Triage Summary: Cough started Saturday. Patient went to [facility] today and they told him to come to ED for evaluation due to their concern for PE. Hx of PE in Fall 2015. Had stroke in September 2016. Had growth on mitral valve in September 2016. Reports mild shortness of breath. Chest pain when taking a deep breath. History of Present Illness The patient is a 26 year old male who presents to the Emergency Room with complaints of pleuritic chest pain. The patient has a history of antiphospholipid antibody syndrome. The patient has had multiple pulmonary emboli in the past. The patient also had a negative d-dimer and was diagnosed with extensive bilateral PE 10 days later. He also had a CVA. The patient takes Coumadin. It was last checked 2 weeks ago. The patient states that Saturday he began to have a cough and ear pain. He saw [facility] and was given Flonase. He returned to [facility] today because he was not feeling any better. He does have pleuritic chest pain in the right posterior lung. He reports mild shortness of breath. He reports a cough productive of yellow sputum. He denies any hemoptysis. He rates his discomfort a 1/10. He denies any earache, sore throat or fever. He denies any abdominal pain, nausea or vomiting. He denies any lower extremity swelling, tenderness or weakness. Review of Systems A 10 system review of systems was completed with positives and pertinent negatives listed in the HPI. Past Medical/Surgical History Medical Problems: (1) Bronchitis (2) Depression (3) Epilepsy (4) History of stroke (5) Pneumonia (6) Pulmonary embolism (7) Seizure Surgical Problems: (1) H/O wisdom tooth extraction Family History Heart disease Hypertension Kidney stones Seizures Social History Smoking Status: Former Smoker Alcohol Use: occasionally Drug Use: marijuana Marital Status: single Housing Status: lives with family Occupation Status: employed, student Current/Historical Medications Scheduled Aspirin (Aspirin Ec), 81 MG PO DAILY Atorvastatin (Atorvastatin Calcium), 40 MG PO QAM Azithromycin (Zithromax Z-Anjel), 1 PKT PO UD Fluticasone Propionate (Fluticasone Propionate), 1 SPRAY LOLY DAILY Lamotrigine (Lamictal), 300 MG PO BID Levetiractam (Levetiracetam), 500 MG PO BID Pantoprazole (Pantoprazole Sodium), 40 MG PO DAILY Pseudoephedrine Hcl (Sudafed 12 Hour), 1 TAB PO Q12 Warfarin Sodium (Warfarin Sodium), 11.25 MG PO 6XWK Warfarin Sodium (Warfarin Sodium), 7.5 MG PO 2XWK Physical Exam Vital Signs Date Time Temp Pulse Resp B/P (MAP) Pulse Ox O2 Delivery O2 Flow Rate FiO2 04/11/17 15:38 62 20 124/62 98 Room Air 04/11/17 14:02 68 119/58 98 Room Air 04/11/17 13:37 82 04/11/17 12:52 97 04/11/17 12:42 36.8 86 20 124/74 97 Room Air Physical Exam VITALS: Vitals are noted on the nurse's note and reviewed by myself. Vital signs stable. The patient is afebrile. He is not tachycardic, tachypneic or hypoxic. GENERAL: This is a 26-year-old male, in no acute distress, nondiaphoretic, well- developed well-nourished. SKIN: The skin was without rashes, erythema, edema, or bruising. There is no tenting of the skin. Capillary reflex less than 2 seconds. HEAD: Normocephalic atraumatic. EARS: External auditory canals clear, tympanic membranes pearly dickens without erythema or effusion bilaterally. EYES: Pupils equal round and reactive to light and accommodation. Conjunctivae without injection, sclerae without icterus. Extraocular movements intact. The patient does wear dark colored contact lenses to help with chronic vertigo. NOSE: Patent, turbinates without inflammation or discharge. No sinus tenderness. MOUTH: Mucous membranes moist. Tonsils are not enlarged. Pharynx without erythema or exudate. Uvula midline. Airway patent. Tongue does not deviate. NECK: Supple without nuchal rigidity. No JVD. HEART: Regular rate and rhythm without murmurs gallops or rubs. LUNGS: Clear to auscultation bilaterally without wheezes, rales or rhonchi. No retractions or accessory muscle use. ABDOMEN: Positive bowel sounds x 4. Soft, nontender, without masses or organomegaly. Hewitt sign negative. MUSCULOSKELETAL: No muscle atrophy, erythema, or edema noted. Full range of motion without joint tenderness in all extremities. No tenderness to palpation. Strength 5/5 throughout. NEURO: Patient was alert and oriented to person place and time. No focal neurological deficits. Medical Decision & Procedures ER Provider Diagnostic Interpretation: (CHEST FOR PE) ANGIO WITH CT DOSE: 408.56 mGy.cm HISTORY: Chest pain dyspnea TECHNIQUE: Multiaxial CT images of the chest were performed following the intravenous administration of contrast to evaluate the pulmonary arteries. Maximal intensity projection images were also obtained. A dose lowering technique was utilized adhering to the principles of ALARA. COMPARISON STUDY: None. FINDINGS: There is a normal caliber thoracic aorta with no evidence for dissection. There is no evidence for pulmonary embolus. No pleural effusions. No pneumothorax. The liver and spleen are unremarkable. No mediastinal or hilar lymphadenopathy. The central airways are patent. The lungs demonstrate vague interstitial infiltrate right lower lobe as seen transaxial images 29 through 18 IMPRESSION: 1. No evidence of pulmonary embolus. 2. Vague parenchymal infiltrate mid right lower lobe. Laboratory Results 04/11/17 13:40 Red Blood Count 5.00, Mean Corpuscular Volume 86.2, Mean Corpuscular Hemoglobin 30.4, Mean Corpuscular Hemoglobin Concent 35.3, Mean Platelet Volume 9.6, Neutrophils (%) (Auto) 75.9, Lymphocytes (%) (Auto) 12.5, Monocytes (%) (Auto) 8.7, Eosinophils (%) (Auto) 2.5, Basophils (%) (Auto) 0.3, Neutrophils # (Auto) 5.17, Lymphocytes # (Auto) 0.85, Monocytes # (Auto) 0.59, Eosinophils # (Auto) 0.17, Basophils # (Auto) 0.02 04/11/17 13:40 Test 04/11/17 13:40 04/11/17 15:11 White Blood Count 6.81 K/uL (4.8-10.8) Red Blood Count 5.00 M/uL (4.7-6.1) Hemoglobin 15.2 g/dL (14.0-18.0) Hematocrit 43.1 % (42-52) Mean Corpuscular Volume 86.2 fL (80-100) Mean Corpuscular Hemoglobin 30.4 pg (25-34) Mean Corpuscular Hemoglobin Concent 35.3 g/dl (32-36) Platelet Count 188 K/uL (130-400) Mean Platelet Volume 9.6 fL (7.4-10.4) Neutrophils (%) (Auto) 75.9 % Lymphocytes (%) (Auto) 12.5 % Monocytes (%) (Auto) 8.7 % Eosinophils (%) (Auto) 2.5 % Basophils (%) (Auto) 0.3 % Neutrophils # (Auto) 5.17 K/uL (1.4-6.5) Lymphocytes # (Auto) 0.85 K/uL (1.2-3.4) Monocytes # (Auto) 0.59 K/uL (0.11-0.59) Eosinophils # (Auto) 0.17 K/uL (0-0.5) Basophils # (Auto) 0.02 K/uL (0-0.2) RDW Standard Deviation 39.5 fL (36.4-46.3) RDW Coefficient of Variation 12.5 % (11.5-14.5) Immature Granulocyte % (Auto) 0.1 % Immature Granulocyte # (Auto) 0.01 K/uL (0.00-0.02) Prothrombin Time 48.0 SECONDS (9.0-12.0) Prothromb Time International Ratio 4.2 (0.9-1.1) Activated Partial Thromboplast Time 57.0 SECONDS (21.0-31.0) Partial Thromboplastin Ratio 2.2 Anion Gap 4.0 mmol/L (3-11) Est Creatinine Clear Calc Drug Dose 101.1 ml/min Estimated GFR () 96.8 Estimated GFR (Non- 83.5 BUN/Creatinine Ratio 14.9 (10-20) Calcium Level 9.3 mg/dl (8.5-10.1) Total Bilirubin 0.9 mg/dl (0.2-1) Aspartate Amino Transf (AST/SGOT) 45 U/L (15-37) Alanine Aminotransferase (ALT/SGPT) 59 U/L (12-78) Alkaline Phosphatase 110 U/L (45-117) Troponin I < 0.015 ng/ml (0-0.045) Total Protein 8.0 gm/dl (6.4-8.2) Albumin 4.2 gm/dl (3.4-5.0) Globulin 3.8 gm/dl (2.5-4.0) Albumin/Globulin Ratio 1.1 (0.9-2) Urine Color YELLOW Urine Appearance CLEAR (CLEAR) Urine pH 7.0 (4.5-7.5) Urine Specific Schlater 1.036 (1.000-1.030) Urine Protein NEG (NEG) Urine Glucose (UA) NEG (NEG) Urine Ketones NEG (NEG) Urine Occult Blood NEG (NEG) Urine Nitrite NEG (NEG) Urine Bilirubin NEG (NEG) Urine Urobilinogen NEG (NEG) Urine Leukocyte Esterase NEG (NEG) Procedure The patient was monitored on a sports analyst. They maintained a normal sinus rhythm without ectopy. ECG Indication: SOB/dyspnea Rate (beats per minute): 79 Rhythm: normal sinus Findings: no acute ischemic change Change: no significant change ED Course The patient was seen and examined. Previous visits were reviewed. The patient does not have a fever or leukocytosis. He does not have any significant electrolyte abnormality. Troponin was not elevated. INR is elevated at 4.2. He does take Coumadin. Urinalysis is negative. EKG does not reveal any acute arrhythmia or ischemia CTA of the chest reveals vague parenchymal infiltrate at the right lower lobe but no evidence of pulmonary embolus The patient presents to the emergency department with cough and right-sided pleuritic chest pain. The patient has an unfortunate history of multiple pulmonary emboli as well as CVA. He has a history of antiphospholipid antibody syndrome. He does take Coumadin. Of note, on 2 different occasions the patient was seen and had a negative d-dimer but returned short time later with pulmonary emboli. The patient does not have evidence of pulmonary embolus today. There is suggestion of pneumonia. His symptoms are consistent with upper respiratory tract infection. He will be placed on a Z-Anjel. The patient's INR today is 4.2. He was advised to hold 1 dose of Coumadin. He was advised to eat some greens and to follow-up with the anticoagulation clinic tomorrow. The patient should return to the ER with any worsening symptoms. The case was discussed with Dr. Cody who agrees with the assessment and treatment plan Medical Decision DIFFERENTIAL DIAGNOSIS: Aortic dissection, myocarditis, pericarditis, cervical disc disease, costochondritis, herpes zoster, rib fracture, pleuritis, pneumonia , pulmonary embolus, tension pneumothorax, anxiety disorder, somatoform disorder , choledocholithiasis, status, esophagitis, esophageal spasm, esophageal reflux , esophageal rupture, pancreatitis, peptic ulcer disease, cardiac ischemia, ST elevation MO, acute coronary syndrome, arrhythmia, coronary artery vasospasm. vavular heart disease, coronary artery disease, among others. Medication Reconcilliation Current Medication List: was personally reviewed by me Blood Pressure Screening Patient's blood pressure: Normal blood pressure Blood pressure disposition: Did not require urgent referral Impression Primary Impression: Pneumonia Departure Information Dispostion Home / Self-Care Condition GOOD Prescriptions Azithromycin (ZITHROMAX Z-ANJEL) 250 Mg Tab 1 PKT PO UD, #1 PKT Prov: Melissa Tai PA-C 04/11/17 Referrals Mukesh Boyd M.D. (PCP) Patient Instructions ED Pneumonia Adult, My [facility] Additional Instructions Hold the Coumadin today Follow with the Coumadin clinic tomorrow Zithromax as prescribed, until finished Return immediately with any worsening symptoms Problem Qualifiers Primary Impression: Pneumonia Pneumonia type: due to unspecified organism Laterality: right Lung location : lower lobe of lung Qualified Codes: J18.1 - Lobar pneumonia, unspecified organism
[2017-04-11 13:54] LABS: BASO % 0.3 %; BASO ABS # 0.02 K/uL (0-0.2); COMPLETE YES; EOS % 2.5 %; HEMATOCRIT 43.1 % (42-52); IG% 0.1 %; LYMPH % 12.5 %; LYMPH ABS # 0.85 K/uL (1.2-3.4); MEAN CELL VOLUME 86.2 fL (80-100); MEAN CORPUSCULAR HEMOGLOBIN 30.4 pg (25-34); MEAN CORPUSCULAR HGB CONC 35.3 g/dl (32-36); MEAN PLATELET VOLUME 9.6 fL (7.4-10.4); MONO % 8.7 %; NEUT % 75.9 %; PLATELET COUNT 188 K/uL (130-400); WHITE BLOOD COUNT 6.81 K/uL (4.8-10.8)
[2017-04-11 14:09] LABS: ALT/SGPT 59 U/L (12-78); AST/SGOT 45 U/L (15-37); BLOOD UREA NITROGEN 18 mg/dl (7-18); BUN/CREATININE RATIO 14.9 (10-20); CALCIUM 9.3 mg/dl (8.5-10.1); CARBON DIOXIDE 31 mmol/L (21-32); CHLORIDE 103 mmol/L (98-107); GLUCOSE 85 mg/dl (70-99); SODIUM 138 mmol/L (136-145)
[2017-04-11 14:10] LABS: INR 4.2 (0.9-1.1); PARTIAL THROMBOPLASTIN RATIO 2.2
[2017-04-11 14:14] LABS: ALB/GLOB RATIO 1.1 (0.9-2); ALKALINE PHOSPHATASE 110 U/L (45-117)
[2017-04-11] MEDS ORDERED: LAMO150T32 PO (14:18)
[2017-04-11] MEDS ORDERED: PSEU120T2 PO (14:18)
[2017-04-11] MEDS ORDERED: FLNIN/ NAE (14:18)
--- NOTE | 2017-04-11 14:59 | DIAGNOSTIC IMAGING REPORT ---
(CHEST FOR PE) ANGIO WITH CT DOSE: 408.56 mGy.cm HISTORY: Chest pain dyspnea TECHNIQUE: Multiaxial CT images of the chest were performed following the intravenous administration of contrast to evaluate the pulmonary arteries. Maximal intensity projection images were also obtained. A dose lowering technique was utilized adhering to the principles of ALARA. COMPARISON STUDY: None. FINDINGS: There is a normal caliber thoracic aorta with no evidence for dissection. There is no evidence for pulmonary embolus. No pleural effusions. No pneumothorax. The liver and spleen are unremarkable. No mediastinal or hilar lymphadenopathy. The central airways are patent. The lungs demonstrate vague interstitial infiltrate right lower lobe as seen transaxial images 29 through 18 IMPRESSION: 1. No evidence of pulmonary embolus. 2. Vague parenchymal infiltrate mid right lower lobe. The above report was generated using voice recognition software. It may contain grammatical, syntax or spelling errors. Electronically signed by: Sean Melo M.D. 04/11/2017 2:58 PM Dictated Date/Time: 04/11/2017 2:55 PM
[2017-04-11] MEDS ORDERED: OPTIRAY 320 IV PRN (15:00)
[2017-04-11 15:21] LABS: URINE APPEARANCE CLEAR (CLEAR); URINE BILIRUBIN NEG (NEG); URINE COLOR YELLOW; URINE NITRITE NEG (NEG); URINE SPECIFIC GRAVITY 1.036 (1.000-1.030); UROBILINOGEN NEG (NEG); ZZUR CULT IF INDIC CLEAN CATCH NO
[2017-04-11] MEDS ORDERED: AZITTAB PO (15:30)
[2017-04-11 15:32] LABS: MANUAL MICROSCOPIC REQUIRED? NO; REVIEW REQ? NO
[2017-04-11 15:38] VITALS: BP 124/62; PULSE 62; O2SAT 98
== END 2017-04-11 15:39 | disposition home or self-care (01) ==
LOC: C.EDB 12:39 → C.EDA 15:39
DX: J18.1 Lobar pneumonia, unspecified organism (principal); Z86.711 Personal history of pulmonary embolism; Z86.73 Personal history of transient ischemic attack (TIA), and cerebral infarction without residual deficits; Z79.01 Long term (current) use of anticoagulants; F32.9 Major depressive disorder, single episode, unspecified; G40.909 Epilepsy, unspecified, not intractable, without status epilepticus; Z82.49 Family history of ischemic heart disease and other diseases of the circulatory system; Z84.1 Family history of disorders of kidney and ureter; Z82.0 Family history of epilepsy and other diseases of the nervous system; Z87.891 Personal history of nicotine dependence; F12.90 Cannabis use, unspecified, uncomplicated; Z79.82 Long term (current) use of aspirin; Z79.899 Other long term (current) drug therapy

== ENCOUNTER 2017-08-15 09:35 | Emergency (ER) | payer BC ==
[~2017-08-15] VITALS: Ht 170.2 cm; Wt 103.4 kg
[~2017-08-15 09:35] MED LIST changes: -ACET-1256 PO; +FLNIN/ NAE; +LAMO150T PO; -LAMO200T38 PO; -LMC25 PO; +PANT40TA2 PO; -PRT/40 PO; +PSEU120T2 PO
[2017-08-15 09:42] VITALS: TEMP 36.7; Ht 170.2 cm; Wt 103.4 kg
--- NOTE | 2017-08-15 10:02 | EMERGENCY ROOM VISIT NOTE ---
History Report prepared by Ileana: Naty Resendiz Under the Supervision of: Dr. Delon Abreu D.O. First contact with patient: 09:56 Chief Complaint: NAUSEA Stated Complaint: NAUSEA, DIZZY, POSSIBLE BLEEDING OF LEFT EAR Nursing Triage Summary: Nauseated and unsteady on his feet with left ear bleeding History of Present Illness The patient is a 27 year old male who presents to the Emergency Room with complaints of an episode of blood coming from his ears beginning last night. The patient states he was wearing an ear plug last night and when he went to take it out it was "covered in blood". The patient reports there was blood still coming from his ear this morning. He reports he started to feel unsteady on his feet, dizzy and nauseated this morning. The patient states his ear feels "full". He believes the blood from his ear is starting to affect his hearing. The patient states the last time his Coumadin level was checked was two weeks ago. He denies any headaches, abdominal pain, chest pain or difficulty breathing. He also denies any recent sick contact. Source of History: patient Onset: last night Position: ear Quality: other (blood ) Timing: other (episode) Associated Symptoms: + nausea, No headache, No chest pain, No SOB, No abdominal pain Review of Systems See HPI for pertinent positives & negatives. A total of 10 systems reviewed and were otherwise negative. 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 Current/Historical Medications Scheduled Aspirin (Aspirin Ec), 81 MG PO DAILY Atorvastatin (Lipitor), 40 MG PO QAM Lamotrigine (Lamictal), 300 MG PO BID Levetiractam (Levetiracetam), 500 MG PO BID Warfarin Sodium (Warfarin Sodium), 11.25 MG PO 6XWK Warfarin Sodium (Warfarin Sodium), 7.5 MG PO 2XWK Scheduled PRN Fluticasone Propionate (Fluticasone Propionate), 1 SPRAY LOLY DAILY PRN for CONGESTION Allergies Coded Allergies: Tramadol (Verified Allergy, Severe, SHORTNESS OF BREATH, 08/15/17) lowers seizure threshold Penicillins (Verified Allergy, Unknown, HIVES AND MILD WHEEZING, 08/15/17) Physical Exam Vital Signs Date Time Temp Pulse Resp B/P (MAP) Pulse Ox O2 Delivery O2 Flow Rate FiO2 08/15/17 12:05 60 18 115/66 96 08/15/17 11:11 78 18 127/57 98 Room Air 08/15/17 09:42 36.7 82 20 123/67 96 Room Air Physical Exam GENERAL: Patient is awake, alert, and in no acute distress. Patient is resting comfortably and showing no signs of anxiety EYES: The conjunctivae are clear. The pupils are round and reactive. EARS, NOSE, MOUTH AND THROAT: The nose is without any evidence of any deformity. Mucous membranes are moist tongue is midline TMs clear bilaterally, clotted blood noted in left outer ear canal, no active bleeding. NECK: The neck is nontender and supple. RESPIRATORY: Normal respiratory effort is noted there is no evidence of wheezing rhonchi or rales CARDIOVASCULAR: Regular rate and rhythm noted there no murmurs rubs or gallops normal S1 normal S2 GASTROINTESTINAL: The abdomen is soft. Bowel sounds are present in all quadrants. Abdomen is nontender MUSCULOSKELETAL/EXTREMITIES: There is no evidence of gross deformity full range of motion is noted in the hips and shoulders SKIN: There is no obvious evidence of any rash. There are no petechiae, pallor or cyanosis noted. NEUROLOGIC: Patient is awake alert and oriented x3 strength is symmetric patellar reflexes are 2+ bilaterally Medical Decision & Procedures Laboratory Results 08/15/17 10:10 Red Blood Count 5.07, Mean Corpuscular Volume 86.4, Mean Corpuscular Hemoglobin 30.4, Mean Corpuscular Hemoglobin Concent 35.2, Mean Platelet Volume 9.8, Neutrophils (%) (Auto) 70.0, Lymphocytes (%) (Auto) 16.5, Monocytes (%) (Auto) 8.4, Eosinophils (%) (Auto) 4.6, Basophils (%) (Auto) 0.3, Neutrophils # (Auto) 4.58, Lymphocytes # (Auto) 1.08, Monocytes # (Auto) 0.55, Eosinophils # (Auto) 0.30, Basophils # (Auto) 0.02 08/15/17 10:10 Test 08/15/17 10:10 White Blood Count 6.54 K/uL (4.8-10.8) Red Blood Count 5.07 M/uL (4.7-6.1) Hemoglobin 15.4 g/dL (14.0-18.0) Hematocrit 43.8 % (42-52) Mean Corpuscular Volume 86.4 fL (80-100) Mean Corpuscular Hemoglobin 30.4 pg (25-34) Mean Corpuscular Hemoglobin Concent 35.2 g/dl (32-36) Platelet Count 203 K/uL (130-400) Mean Platelet Volume 9.8 fL (7.4-10.4) Neutrophils (%) (Auto) 70.0 % Lymphocytes (%) (Auto) 16.5 % Monocytes (%) (Auto) 8.4 % Eosinophils (%) (Auto) 4.6 % Basophils (%) (Auto) 0.3 % Neutrophils # (Auto) 4.58 K/uL (1.4-6.5) Lymphocytes # (Auto) 1.08 K/uL (1.2-3.4) Monocytes # (Auto) 0.55 K/uL (0.11-0.59) Eosinophils # (Auto) 0.30 K/uL (0-0.5) Basophils # (Auto) 0.02 K/uL (0-0.2) RDW Standard Deviation 38.8 fL (36.4-46.3) RDW Coefficient of Variation 12.2 % (11.5-14.5) Immature Granulocyte % (Auto) 0.2 % Immature Granulocyte # (Auto) 0.01 K/uL (0.00-0.02) Prothrombin Time 30.2 SECONDS (9.0-12.0) Prothromb Time International Ratio 2.9 (0.9-1.1) Activated Partial Thromboplast Time 51.8 SECONDS (21.0-31.0) Partial Thromboplastin Ratio 2.0 Anion Gap 5.0 mmol/L (3-11) Est Creatinine Clear Calc Drug Dose 111.6 ml/min Estimated GFR () 101.2 Estimated GFR (Non- 87.3 BUN/Creatinine Ratio 19.2 (10-20) Calcium Level 8.9 mg/dl (8.5-10.1) Laboratory results per my review. Medications Administered Medications (Trade) Dose Ordered Sig/Brianad Route Start Time Stop Time Status Last Admin Dose Admin Ondansetron HCl (Zofran Odt) 4 mg ONE ONCE PO 08/15/17 10:15 08/15/17 10:16 DC 08/15/17 10:15 4 MG ED Course 0956: The patient was evaluated in room B12A. A complete history and physical examination were performed. 1015: Ordered Zofran Odt 4 mg PO. 1156: I updated the patient on his test results. 1205: Upon reevaluation, the patient is resting comfortably. I discussed the results and treatment plan with him. He verbalized agreement of the treatment plan. The patient was discharged home. Medical Decision Differential diagnosis: Etiologies such as benign positional vertigo, dehydration, hypovolemia, anemia, tumor, infection, hypoglycemia, electrolyte abnormalities, cardiac sources, intracerebral event, toxicologic, neurologic, as well as others were entertained. Nursing notes reviewed. The patient is a 27-year-old male who presented to the emergency department for bleeding from his left ear. The patient was using ear buds and when he removes 1 he suffered a small laceration to his left ear. There is no bleeding. The patient was reevaluated multiple times. No bleeding was noted. He was encouraged to return to emergency Department of bleeding restarted that we would likely do an ear wick. The patient takes blood thinners for hypercoagulable syndrome. Medication Reconcilliation Current Medication List: was personally reviewed by me Blood Pressure Screening Patient's blood pressure: Normal blood pressure Impression Primary Impression: Laceration of ear, external, left Additional Impression: Encounter for monitoring coumadin therapy Scribe Attestation The scribe's documentation has been prepared under my direction and personally reviewed by me in its entirety. I confirm that the note above accurately reflects all work, treatment, procedures, and medical decision making performed by me. Departure Information Dispostion Home / Self-Care Referrals Mukesh Boyd M.D. (PCP) Forms HOME CARE DOCUMENTATION FORM, IMPORTANT VISIT INFORMATION Patient Instructions First Aid Bleeding, My [facility] Additional Instructions Follow-up with your family doctor as soon as possible. Do not use headphones until symptoms are completely resolved. Return to the emergency department immediately if symptoms change worsen or the need arises. Problem Qualifiers Primary Impression: Laceration of ear, external, left Encounter type: initial encounter Qualified Codes: S01.312A - Laceration without foreign body of left ear, initial encounter
[2017-08-15] MEDS ORDERED: ONDANSETRON 4MG OD TAB PO ONE (10:15)
[2017-08-15 10:44] LABS: BASO % 0.3 %; BASO ABS # 0.02 K/uL (0-0.2); EOS % 4.6 %; HEMATOCRIT 43.8 % (42-52); HEMOGLOBIN 15.4 g/dL (14.0-18.0); IG# 0.01 K/uL (0.00-0.02); LYMPH % 16.5 %; LYMPH ABS # 1.08 K/uL (1.2-3.4); MEAN CELL VOLUME 86.4 fL (80-100); MEAN CORPUSCULAR HEMOGLOBIN 30.4 pg (25-34); MEAN CORPUSCULAR HGB CONC 35.2 g/dl (32-36); MEAN PLATELET VOLUME 9.8 fL (7.4-10.4); MONO % 8.4 %; MONO ABS # 0.55 K/uL (0.11-0.59); NEUT ABS # 4.58 K/uL (1.4-6.5); PLATELET COUNT 203 K/uL (130-400); RED CELL DISTRIBUTION WIDTH CV 12.2 % (11.5-14.5); RED CELL DISTRIBUTION WIDTH SD 38.8 fL (36.4-46.3); WHITE BLOOD COUNT 6.54 K/uL (4.8-10.8)
[2017-08-15 10:59] LABS: INR 2.9 (0.9-1.1)
[2017-08-15 11:01] LABS: CALCIUM 8.9 mg/dl (8.5-10.1); CREATININE 1.15 mg/dl (0.60-1.40); POTASSIUM 3.4 mmol/L (3.5-5.1)
[2017-08-15 11:05] LABS: PTT PATIENT 51.8 SECONDS (21.0-31.0)
[2017-08-15 12:05] VITALS: BP 115/66; PULSE 60; O2SAT 96
== END 2017-08-15 12:06 | disposition home or self-care (01) ==
LOC: C.EDB 09:42
DX: S01.312A Laceration without foreign body of left ear, initial encounter (principal); X58.XXXA Exposure to other specified factors, initial encounter; F32.9 Major depressive disorder, single episode, unspecified; G40.909 Epilepsy, unspecified, not intractable, without status epilepticus; R56.9 Unspecified convulsions; I26.99 Other pulmonary embolism without acute cor pulmonale; Z82.0 Family history of epilepsy and other diseases of the nervous system; Z82.49 Family history of ischemic heart disease and other diseases of the circulatory system; Z87.891 Personal history of nicotine dependence; F12.90 Cannabis use, unspecified, uncomplicated; Z79.01 Long term (current) use of anticoagulants; Z51.81 Encounter for therapeutic drug level monitoring; Z79.82 Long term (current) use of aspirin

== ENCOUNTER 2017-08-15 17:01 | Emergency (ER) | payer BC ==
[2017-08-15 17:08] VITALS: TEMP 36.8; Ht 170.2 cm
[2017-08-15] MEDS ORDERED: OXYMETAZOLINE HCL 0.05% NA SPR 15 ML BTL ONE (17:30)
[2017-08-15 18:02] VITALS: BP 140/77; PULSE 67; O2SAT 97
--- NOTE | 2017-08-17 16:47 | EMERGENCY ROOM VISIT NOTE ---
ED Visit Note First contact with patient: 17:16 Chief Complaint: Bleeding from my left ear. History of Present Illness: Mr. Gilmore is a 27-year-old white male who ambulates into the ED accompanied by his father complaining of left ear bleeding. Historically patient is on warfarin for previous pulmonary embolism. He was seen earlier today for the same ear bleeding. 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 He was discharged home in stable condition. Patient reports shortly after going home he took a nap and when he woke up he was once again bleeding from the ear canal. He is attempted to use direct pressure but has been unsuccessful. He has no associated symptoms including ear pain, hearing changes, other bleeding. He also denies any additional trauma. Review of Systems: As noted above in history of present illness. Past Medical History: As noted above and bronchitis, epilepsy, CVA, depression and status post wisdom teeth extraction Current Medications: As noted above and aspirin, Lipitor, Levetiracetam, Lamictal, Fluticasone. Allergies to Medications: Penicillin and tramadol. Social History: Patient is currently in school; he feels safe in his home environment; he denies current tobacco use. Physical Examination: Vital Signs: Date Time Temp Pulse Resp B/P (MAP) Pulse Ox O2 Delivery O2 Flow Rate FiO2 08/15/17 18:02 67 18 140/77 97 08/15/17 17:08 36.8 72 20 127/72 96 Room Air GENERAL: 27-year-old male in no acute distress, nontoxic-appearing, afebrile and hemodynamically stable. NEUROLOGICAL: Awake, alert and oriented to person, place and time. Answering questions appropriately and following commands. Normal gait. SKIN: Warm, dry and pink. HEENT: Atraumatic and normocephalic. No left external ear tenderness. Left auditory canal shows a small superficial laceration that is slightly losing blood. Tympanic membrane was able to be visualized and there is no erythema or edema. There is no bulging or fluid behind the eardrum. ED Course: Patient is assessed as noted above. Patient's medication list and last ED visit was reviewed. Patient's case was reviewed with Dr. Abreu; we agreed on diagnostic approach, treatment, disposition and plan. 2 ear ivana were placed in patient's left ear canal and saturated with Afrin; on recheck there was no bleeding through the the ivana. Patient was educated about today's findings and instructed on his treatment plan ; he verbalizes understanding and agreement with this plan. Clinical Impression: Left auditory canal superficial laceration. Disposition: Patient discharged home in stable condition accompanied by his father; prior to departure he was reassessed and remained pain and symptom-free. Plan: Patient was encouraged to continue his current medications as prescribed. Patient is encouraged to use 650 mg of acetaminophen every 6 hours as needed for pain. Patient was encouraged to keep the ear ivana in place as long as possible. Patient was encouraged to return to the ED on Saturday for wick removal and recheck. Patient was encouraged return to the ED sooner for bleeding, pain, fevers or any new/concerning symptoms.
== END 2017-08-15 18:00 | disposition home or self-care (01) ==
LOC: C.EDB 17:02 → C.EDD 18:00
DX: S01.312D Laceration without foreign body of left ear, subsequent encounter (principal); X58.XXXD Exposure to other specified factors, subsequent encounter; Z79.01 Long term (current) use of anticoagulants; Z86.711 Personal history of pulmonary embolism; Z79.82 Long term (current) use of aspirin

== ENCOUNTER 2017-08-25 11:50 | Emergency (ER) | payer BC ==
[~2017-08-25] VITALS: Ht 170.2 cm; Wt 104.0 kg
[~2017-08-25 11:50] MED LIST changes: -PANT40TA2 PO; -PSEU120T2 PO
[2017-08-25 11:52] VITALS: TEMP 36.5; Ht 170.2 cm; Wt 104.0 kg
[2017-08-25] MEDS ORDERED: ACET-1256 PO (12:19)
--- NOTE | 2017-08-25 12:21 | EMERGENCY ROOM VISIT NOTE ---
History Report prepared by Ileana: Sharda Javier Under the Supervision of: Dr. Hill Malik M.D. First contact with patient: 12:06 Chief Complaint: LEG PAIN,LEG INJURY Stated Complaint: WARM SWOLLEN AREA ON RIGHT LEG BELOW KNEE History of Present Illness The patient is a 27 year old male who presents to the Emergency Room with complaints of a persistent warm swollen area on right leg below the knee that began began one week ago. The patient states that he first noted a small bump on his leg, noting he did not notice any bites or unusual wells. He reports that he has a history of seizures, noting that two years ago he came into the Emergency Department for chest pain, where he was diagnosed to have pulmonary embolism. The patient denies having any other blood clots besides that, but he takes Coumadin daily. He reports that he has antiphospholipid antibody syndrome. He notes that he was seen in the Emergency Department one week ago for respiratory issues. The patient denies any chills, fever, congestion, headaches, nausea, and vomiting. Source of History: patient Onset: one week ago Position: other (global) Quality: other (warm swollen area on right leg below the knee) Timing: other (persistent ) Associated Symptoms: No fevers, No chills, No headache, No nausea, No vomiting Review of Systems See HPI for pertinent positives and negatives. A total of ten systems were reviewed and were otherwise negative. 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 Current/Historical Medications Scheduled Acetaminophen (Tylenol), 1,000 MG PO UD Aspirin (Aspirin Ec), 81 MG PO QAM Atorvastatin (Lipitor), 40 MG PO QAM Clindamycin Hcl (Cleocin), 450 MG PO QID Lamotrigine (Lamictal), 300 MG PO BID Levetiractam (Levetiracetam), 500 MG PO BID Saccharomyces Boulardii (Florastor), 1 CAP PO BID Warfarin Sodium (Warfarin Sodium), 11.25 MG PO 5XWK Warfarin Sodium (Warfarin Sodium), 7.5 MG PO 2XWK Scheduled PRN Fluticasone Propionate (Fluticasone Propionate), 1 SPRAY LOLY DAILY PRN for CONGESTION Allergies Coded Allergies: Tramadol (Verified Allergy, Severe, SHORTNESS OF BREATH, 08/25/17) lowers seizure threshold Penicillins (Verified Allergy, Unknown, HIVES AND MILD WHEEZING, 08/25/17) Physical Exam Vital Signs Date Time Temp Pulse Resp B/P (MAP) Pulse Ox O2 Delivery O2 Flow Rate FiO2 08/25/17 15:35 64 18 129/59 97 08/25/17 13:50 67 16 116/62 96 Room Air 08/25/17 11:52 36.5 70 18 118/76 96 Room Air Physical Exam GENERAL: Awake, alert, well-appearing, in no distress HENT: Normocephalic, atraumatic. Oropharynx unremarkable. EYES: Normal conjunctiva. Sclera non-icteric. NECK: Supple. No nuchal rigidity. FROM. No JVD. RESPIRATORY: Clear to auscultation. CARDIAC: Regular rate, normal rhythm. Extremities warm and well perfused. Pulses equal. ABDOMEN: Soft, non-distended. No tenderness to palpation. No rebound or guarding. No masses. RECTAL: Deferred. MUSCULOSKELETAL: Chest examination reveals no tenderness. The back is symmetrical on inspection without obvious abnormality. There is no CVA tenderness to palpation. No joint edema. LOWER EXTREMITIES: Right lateral aspect of knee with .1cm area induration, no fluctuance, no erythema or warmth. Calves are equal size bilaterally and non- tender. No edema. No discoloration. NEURO: Normal sensorium. No sensory or motor deficits noted. SKIN: No rash or jaundice noted. Medical Decision & Procedures ER Provider Diagnostic Interpretation: Radiology results as stated below per my review and radiologist interpretation: R VENOUS DOPP LOWER EXT UNILAT CLINICAL HISTORY: 27 years-old Male presenting with pain swelling at the lateral patella. TECHNIQUE: Real-time grayscale and color and spectral Doppler ultrasound imaging of the veins of the right lower extremity was performed. Compression and augmentation were also utilized. COMPARISON: None. FINDINGS: Right: Common femoral vein: Patent. Greater saphenous vein: Patent. Deep femoral vein: Patent. Femoral vein: Patent. Popliteal vein: Patent. Calf veins: Patent. Other: No fluid collection or significant hyperemia at the site of clinical concern along the right lateral aspect of the patella no subcutaneous edema is noted. IMPRESSION: No evidence of deep venous thrombosis. Electronically signed by: Mukesh Hall M.D. 08/25/2017 1:31 PM Dictated Date/Time: 08/25/2017 1:29 PM Laboratory Results Test 08/25/17 12:46 Bedside Prothrombin Time INR 3.2 (0.9-1.1) Medications Administered Medications (Trade) Dose Ordered Sig/Brianda Route Start Time Stop Time Status Last Admin Dose Admin Clindamycin HCl (Cleocin Cap) 450 mg ONE STAT PO 08/25/17 15:09 08/25/17 15:12 DC 08/25/17 15:31 450 MG Clindamycin HCl (Cleocin Cap) 450 mg ONE ONCE PO 08/25/17 15:30 08/25/17 15:31 DC 08/25/17 15:31 450 MG ED Course 1207: The patient was evaluated in room A10. A complete history and physical exam was performed. 1426: I reevaluated the patient. Discussed results and discharge instructions: He verbalized understanding and agreement. The patient is ready for discharge. Medical Decision I reviewed the patient's past medical history, medications, and the nursing notes as described above. The patient's presentation and history were concerning for cellulitis, abscess, DVT, superficial induration. The patient is a 27-year-old gentleman with a past medical history of DVT/PE on Coumadin in the setting of diagnosis of antiphospholipid antibody syndrome who presents emergency Department with right leg pain and swelling per hpi. On arrival the patient is well-appearing, afebrile stable vital signs. On exam the patient has mild swelling today lateral aspect of the right knee with a 1 cm area of induration without underlying fluctuance. No warmth or crepitus. Distal PMS intact. Duplex negative for DVT. Bedside ultrasound demonstrates soft tissue cobblestoning consistent with cellulitis, without any discrete fluid collection to suggest abscess. Patient has a penicillin allergy. Thus we 'll treat with clindamycin. Plan for PCP follow-up. Findings and plan for follow-up reviewed with patient. Patient agreeable and d/c'd per discharge instructions. Medication Reconcilliation Current Medication List: was personally reviewed by me Blood Pressure Screening Patient's blood pressure: Normal blood pressure Impression Primary Impression: Cellulitis of knee, right Scribe Attestation The scribe's documentation has been prepared under my direction and personally reviewed by me in its entirety. I confirm that the note above accurately reflects all work, treatment, procedures, and medical decision making performed by me. Departure Information Dispostion Home / Self-Care Prescriptions Saccharomyces Boulardii (Florastor) 250 Mg Cap 1 CAP PO BID for 10 Days, #20 CAP Prov: Hill Malik M.D. 08/25/17 Clindamycin Hcl (CLEOCIN) 150 Mg Cap 450 MG PO QID for 7 Days, #84 CAP Prov: Hill Malik M.D. 08/25/17 Referrals Mukesh Boyd M.D. (PCP) Forms HOME CARE DOCUMENTATION FORM, IMPORTANT VISIT INFORMATION Patient Instructions ED Infec Skin Cellulitis, [facility] Additional Instructions Please follow up with your primary care physician in the next 1-3 days for re- evaluation. You were found to have a skin infection. Otherwise, your exam and ultrasound did not show signs of an emergent condition at this time. Acetaminophen for pain as needed. Clindamycin as directed. Florastor, probiotic, to help prevent antibiotic associated diarrhea. Return to the emergency department for worsening symptoms as described in the accompanying instructions.
--- NOTE | 2017-08-25 13:32 | DIAGNOSTIC IMAGING REPORT ---
R VENOUS DOPP LOWER EXT UNILAT CLINICAL HISTORY: 27 years-old Male presenting with pain swelling at the lateral patella. TECHNIQUE: Real-time grayscale and color and spectral Doppler ultrasound imaging of the veins of the right lower extremity was performed. Compression and augmentation were also utilized. COMPARISON: None. FINDINGS: Right: Common femoral vein: Patent. Greater saphenous vein: Patent. Deep femoral vein: Patent. Femoral vein: Patent. Popliteal vein: Patent. Calf veins: Patent. Other: No fluid collection or significant hyperemia at the site of clinical concern along the right lateral aspect of the patella no subcutaneous edema is noted. IMPRESSION: No evidence of deep venous thrombosis. Electronically signed by: Mukesh Hall M.D. 08/25/2017 1:31 PM Dictated Date/Time: 08/25/2017 1:29 PM
[2017-08-25] MEDS ORDERED: CLINDAMYCIN HCL 150 MG CAP PO STA (15:09)
[2017-08-25] MEDS ORDERED: CLIN150C PO (15:17)
[2017-08-25] MEDS ORDERED: SACC250C3 PO (15:17)
[2017-08-25] MEDS ORDERED: CLINDAMYCIN HCL 150 MG CAP PO ONE (15:30)
[2017-08-25 15:35] VITALS: BP 129/59; PULSE 64; O2SAT 97
== END 2017-08-25 15:36 | disposition home or self-care (01) ==
LOC: C.EDB 11:52 → C.EDA 15:36
DX: L03.115 Cellulitis of right lower limb (principal); D68.61 Antiphospholipid syndrome; G40.909 Epilepsy, unspecified, not intractable, without status epilepticus; Z79.01 Long term (current) use of anticoagulants; Z79.82 Long term (current) use of aspirin; Z87.891 Personal history of nicotine dependence; Z86.711 Personal history of pulmonary embolism; Z86.73 Personal history of transient ischemic attack (TIA), and cerebral infarction without residual deficits; Z82.49 Family history of ischemic heart disease and other diseases of the circulatory system; Z84.1 Family history of disorders of kidney and ureter; Z82.0 Family history of epilepsy and other diseases of the nervous system

== ENCOUNTER 2018-09-15 16:25 | Inpatient (IN) ==
[2018-09-15] MEDS ORDERED: SODIUM CHLORIDE 0.9% 1000ML 1,000 ML IV SCH (17:45)
[2018-09-15] MEDS ORDERED: VANCOMYCIN CONSULT ACTIVE PRN (17:55)
[2018-09-15] MEDS ORDERED: VANCOMYCIN HCL 2,000 MG in SODIUM CHLORIDE 0.9% 500 ML IV ONE (17:55)
[2018-09-15] MEDS ORDERED: CEFEPIME 1,000 MG in SYRINGE 0 ML IV STA (17:55)
[2018-09-15] MEDS ORDERED: LEVOFLOXACIN/D5W 750 MG/150 ML BAG IV SCH (18:00)
--- NOTE | 2018-09-15 18:04 | XRay Report ---
SINGLE VIEW CHEST CLINICAL HISTORY: Atypical chest pain. FINDINGS: An AP, portable, upright chest radiograph is compared to study dated 06/20/2018 and correla ashley with chest CT dated 06/17/2018. The examination is degraded by portable technique, apical lordoti c positioning, and patient rotation. The cardiomediastinal silhouette is unremarkable. Foci of patch y consolidative change are noted in the right lower lung. Left lung appears clear. No large pleural e ffusion or pneumothorax is seen. The bony thorax is grossly intact. IMPRESSION: Foci of patchy consolidative change are noted in the right lung base. Correlate clinicall y for evidence of an infectious/inflammatory pneumonitis. Electronically signed by: Adolph Duarte M.D. 09/15/2018 6:03 PM
[2018-09-15 18:26] LABS: Basophils # (auto) 0.04 K/uL (0-0.2); Basophils % (auto) 0.7 %; Eosinophils # (auto) 0.19 K/uL (0-0.5); Eosinophils % (auto) 3.2 %; Hematocrit (blood only) 43.9 % (42-52); Hemoglobin 15.8 g/dL (14.0-18.0); Immature Granulocytes # (auto) 0.01 K/uL (0.00-0.02); Immature Granulocytes % (auto) 0.2 %; Lymphocytes # (auto) 1.42 K/uL (1.2-3.4); Lymphocytes % (auto) 24.1 %; Mean Corpuscular Volume 84.1 fL (80-100); Mean Platelet Volume 10.3 fL (7.4-10.4); Monocytes # (auto) 0.55 K/uL (0.11-0.59); Monocytes % (auto) 9.3 %; Neutrophils # (auto) 3.69 K/uL (1.4-6.5); Neutrophils % (auto) 62.5 %; Platelet Count 193 K/uL (130-400); RDW Standard Deviation 36.9 fL (36.4-46.3); Red Blood Count 5.22 M/uL (4.7-6.1)
[2018-09-15 18:42] LABS: Alanine Aminotransferase 108 U/L (12-78); Albumin Level 3.9 gm/dl (3.4-5.0); Aspartate Aminotransferase 48 U/L (15-37); BUN Creatinine Ratio 10.1 (10-20); Blood Urea Nitrogen 13 mg/dl (7-18); Calcium 8.6 mg/dl (8.5-10.1); Carbon Dioxide 29 mmol/L (21-32); Chloride 106 mmol/L (98-107); Creatinine Clr Calc Pharmacy 91.4 ml/min; Est GFR (African American) 84.3; Est GFR (Non-African American) 72.7; Glucose 84 mg/dl (70-99); Potassium 4.1 mmol/L (3.5-5.1); Sodium 140 mmol/L (136-145)
[2018-09-15 18:46] LABS: INR 3.6 (0.9-1.1); Prothrombin Time 34.1 Seconds (9.0-12.0)
[2018-09-15 18:47] LABS: Albumin Globulin Ratio 1.1 (0.9-2); Alkaline Phosphatase 138 U/L (45-117); Bilirubin,Total 0.7 mg/dl (0.2-1); Globulin 3.6 gm/dl (2.5-4.0); Total Protein 7.5 gm/dl (6.4-8.2); Troponin I < 0.015 ng/ml (0-0.045)
--- NOTE | 2018-09-15 18:48 | Ultrasound Report ---
ULTRASOUND BILATERAL LOWER EXTREMITY VENOUS CLINICAL HISTORY: Atypical chest pain. Clinical concern for deep venous thrombosis. COMPARISON STUDY: Right lower extremity venous ultrasound dated 08/25/2017. Bilateral lower extremity v enous ultrasound dated 10/03/2016. TECHNIQUE: Real-time, grayscale, and color Doppler sonography of the deep veins of the right and left lower extremity was performed from the inguinal crease to the calf. Compression and augmentation wer e utilized. FINDINGS: There is no sonographic evidence of deep venous thrombosis identified in the right or left lower extremity. The common femoral, superficial femoral, and popliteal veins are patent and normally compressible bilaterally. The greater saphenous vein and the profunda femoris vein at the junction w ith the common femoral vein are clear in both legs. The visualized calf veins are patent bilaterally. IMPRESSION: There is no sonographic evidence of deep venous thrombosis identified in the right or lef t lower extremity. Electronically signed by: Adolph Duarte M.D. 09/15/2018 6:47 PM
[2018-09-15] MEDS ORDERED: PHYTONADIONE 5 MG TAB PO STA (19:48)
--- NOTE | 2018-09-15 20:26 | Emergency Department Note ---
Entered by Brittany Díaz acting as a scribe for Javad Maldonado DO History of Present Illness General Chief complaint: Cough Stated complaint: COUGH W/ BLOOD, (CT SHOWING POSSIBLE CLOT IN LUNG) Source: patient Mode of arrival: ambulatory Limitations: no limitations History of Present Illness Onset (ago): week(s) 1 Location: chest Pain Consistency: + other (worsening) Maximum Pain Intensity: 3 Quality: + other (cough with blood production) Exacerbated By: + other (exertion, deep breathing) Associated symptoms: + cough (with production of blood), + fever/chills (The patient complains of chills. The patient denies fevers. ) and + other (The patient complains of bilateral back pain. The patient denies rhinorrhea, sore throat, and urinary symptoms. ) The patient is a 28 year old male with a history of blood clots and Lupus who presents to the ED with complaints of worsening cough that onset 5 weeks ago. He states that he recently had a CT completed at [facility] that showed a possible blood clot in his lung. The patient complains of chills and cough with production of blood. He states that the pain is exacerbated with exertion. The patient denies fever, rhinorrhea, sore throat, and urinary symptoms. He notes that he is on Coumadin. Symptoms all started in early July when he started to having hemoptysis. He notes that he does have SLE and previous blood clots and consequently is on Coumadin for which they try to keep him between 2.5 and 3.5. Patient notes that he has felt fatigued and weak recently. Home Medications Home Medications Medication Instructions Recorded Confirmed Type aspirin [Aspir-Low] 81 mg PO QAM 06/17/18 09/15/18 History atorvastatin [Lipitor] 40 mg PO QAM 06/17/18 09/15/18 History fluticasone [Flonase Allergy 2 spray INTRANASAL DAILY PRN 06/17/18 09/15/18 History Relief] hydroxychloroquine [Plaquenil] 400 mg PO HS 06/17/18 09/15/18 History lamotrigine [Lamictal] 300 mg PO BID 06/17/18 09/15/18 History levetiracetam [Keppra] 500 mg PO BID 06/17/18 09/15/18 History warfarin [Coumadin] 7.5 mg PO MOWEFRSA 07/09/18 09/15/18 History cephalexin 500 mg PO QID 09/15/18 09/15/18 History lamotrigine 25 mg PO DIRECTED PRN 09/15/18 09/15/18 History warfarin 11.25 mg PO SUTUTH 09/15/18 09/15/18 History Allergies Allergy/AdvReac Type Severity Reaction Status Date / Time tramadol Allergy Severe SHORTNESS Verified 09/15/18 18:20 OF BREATH Penicillins Allergy Unknown HIVES AND Verified 09/15/18 18:20 MILD WHEEZING Past Med/Surg History Medical History 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) Antiphospholipid antibody with hypercoagulable state (Chronic) Epilepsy (Chronic) Depression (Chronic) History of stroke (Chronic) Pulmonary embolism (Resolved) Anticoagulated (Chronic) Surgical History H/O wisdom tooth extraction (Resolved) Social History Current Living Situation: Family current occupational status: student Feels Safe at Home: Yes Smoking Status: Never smoker Second Hand Exposure: No Hx Alcohol Use: Yes Alcohol type: beer Alcohol Intake Frequency: a few times a week Hx Substance Use: Yes substance use type: marijuana Substance Use Type Other:: medical marijuana for seizures Beliefs That Will Affect Care: None Preferred Language: Lithuanian Communication Ability: Effective Visual Impairment: No Limitations Hearing Ability: Normal Review of Systems See HPI for pertinent positives & negatives. and A total of 10 systems reviewed and were otherwise negative Physical Exam Vital Signs Vital Signs - 24 hr 09/15/18 17:02 09/15/18 19:34 09/15/18 19:51 Temperature 36.9 C Temperature Source Oral Sepsis Recent Fever Within 48 Hours No Sepsis New/Unexplained Change in Mental Status No Sepsis Action Taken by Nursing No Action Required Pulse Rate 67 Pulse Rate [Apical] 61 Pulse Rhythm Regular Pulse Strength Normal Respiratory Rate 20 13 Respiratory Effort / Characteristics Non-Labored Spontaneous Non-Labored Respiratory Depth Normal Normal Respiratory Pattern Regular Regular Blood Pressure 122/72 Blood Pressure [Right Arm] 124/68 Blood Pressure Mean 88 Blood Pressure Mean [Right Arm] 86 Blood Pressure Position Sitting Pulse Oximetry 95 97 96 Oxygen Delivery Method Room Air Room Air Room Air GENERAL: Sitting up in bed, alert, well appearing, well nourished, no distress, non-toxic EYE EXAM: normal conjunctiva. OROPHARYNX: no exudate, no erythema, lips, buccal mucosa, and tongue normal and mucous membranes are moist NECK: supple, no nuchal rigidity, no adenopathy, non-tender LUNGS: Clear to auscultation. Normal chest wall mechanics HEART: no murmurs, S1 normal and S2 normal ABDOMEN: abdomen soft, non-tender, normo-active bowel, sounds, no masses, no rebound or guarding. BACK: Back is symmetrical on inspection and there is no deformity, no midline tenderness, no CVA tenderness. SKIN: no rashes and no bruising UPPER EXTREMITIES: upper extremities are grossly normal. LOWER EXTREMITIES: No pitting edema. NEURO EXAM: Normal sensorium, cranial nerves II-XII grossly intact, normal speech, no gross weakness of arms, no gross weakness of legs. Course 172: Past medical records reviewed. The patient was evaluated in room B06, and a complete history and physical examination were performed. 175: I discussed the case with a radiologist at [facility]. He believes that there is no filling defects but instead motion artifacts. I will give the patient antibiotics and admit him to a hospitalist. 1800: I reviewed the patient's case with Dr. Valenzuela Cold Roll Catcher. He states that there would be no benefit to him lookin at the image. 1810: I reviewed the patient's case with Yenni FLORES [facility]. He will evaluate the patient for further management. Consultations Consultation #1: 1800: I reviewed the patient's case with Dr. Valenzuela Cold Roll Catcher. He states that there would be no benefit to him lookin at the image. Time: 18:00 Consultation #2: 1810: I reviewed the patient's case with Yenni FLORES [facility]. He will evaluate the patient for further management. Time: 18:10 Administered Medications Levofloxacin/Dextrose (Levaquin/D5w) 750 mg in 150 mls @ 100 mls/hr IV Q24H NERISSA Stop: 09/17/18 17:59 Last Admin: 09/15/18 19:43 Dose: 100 mls/hr Vancomycin HCl 2,000 mg/ (Sodium Chloride) 540 mls @ 200 mls/hr IV NOW ONE Stop: 09/15/18 20:36 Last Admin: 09/15/18 19:13 Dose: 200 mls/hr Discontinued Medications Sodium Chloride (Nss 1000ml) 1,000 mls @ 999 mls/hr IV .Q1H1M NERISSA Stop: 09/15/18 18:45 Last Infusion: 09/15/18 20:06 Dose: 0 mls/hr Admin: 09/15/18 19:13 Dose: 999 mls/hr Cefepime HCl 1,000 mg/ Syringe 11.3 mls @ 5.5 mls/min IV NOW STA Stop: 09/15/18 17:57 Last Admin: 09/15/18 19:12 Dose: 5.5 mls/min Medical Decision Making Differential Diagnosis Differential diagnosis: Etiologies such as infections, reactive airway disease, COPD, pneumonia, pleural effusion, pulmonary edema, ARDS, pneumothorax, CHF, cardiac ischemia, cardiac tamponade, dysrhythmia, anemia, pulmonary embolism, musculoskeletal, gastrointestinal process, as well as others were entertained. Medical Records Attestation: I reviewed the patient's medical records. Home Medications Current Medication List: was personally reviewed by me Laboratory Data Attestation: I reviewed the patient's lab results. Result diagrams: 09/15/18 18:14 09/15/18 18:14 Lab Results 09/15/18 09/15/18 09/15/18 Range/Units 18:14 18:14 18:14 WBC 5.90 (4.8-10.8) K/uL RBC 5.22 (4.7-6.1) M/uL Hgb 15.8 (14.0-18.0) g/dL Hct 43.9 (42-52) % MCV 84.1 (80-100) fL MCH 30.3 (25-34) pg MCHC 36.0 (32-36) g/dL RDW Std Deviation 36.9 (36.4-46.3) fL RDW Coeff of Norma 12.0 (11.5-14.5) % Plt Count 193 (130-400) K/uL MPV 10.3 (7.4-10.4) fL Immature Gran % (Auto) 0.2 % Neut % (Auto) 62.5 % Lymph % (Auto) 24.1 % [place] % (Auto) 9.3 % Eos % (Auto) 3.2 % Baso % (Auto) 0.7 % Immature Gran # (Auto) 0.01 (0.00-0.02) K/uL Neut # (Auto) 3.69 (1.4-6.5) K/uL Lymph # (Auto) 1.42 (1.2-3.4) K/uL [place] # (Auto) 0.55 (0.11-0.59) K/uL Eos # (Auto) 0.19 (0-0.5) K/uL Baso # (Auto) 0.04 (0-0.2) K/uL PT 34.1 H (9.0-12.0) Seconds INR 3.6 H (0.9-1.1) Sodium 140 (136-145) mmol/L Potassium 4.1 (3.5-5.1) mmol/L Chloride 106 (98-107) mmol/L Carbon Dioxide 29 (21-32) mmol/L Anion Gap 5.0 (3-11) BUN 13 (7-18) mg/dl Creatinine 1.33 (0.6-1.4) mg/dl Est Cr Clr Drug Dosing 91.4 ml/min Est GFR ( Amer) 84.3 Est GFR (Non-Af Amer) 72.7 BUN/Creatinine Ratio 10.1 (10-20) Glucose 84 (70-99) mg/dl Calcium 8.6 (8.5-10.1) mg/dl Total Bilirubin 0.7 (0.2-1) mg/dl AST 48 H (15-37) U/L ALT 108 H (12-78) U/L Alkaline Phosphatase 138 H (45-117) U/L Troponin I < 0.015 (0-0.045) ng/ml Total Protein 7.5 (6.4-8.2) gm/dl Albumin 3.9 (3.4-5.0) gm/dl Globulin 3.6 (2.5-4.0) gm/dl Albumin/Globulin Ratio 1.1 (0.9-2) Lipase 145 (73-393) U/L Imaging Data Radiologist's Impression: Radiology results as stated below per my review and the radiologist's interpretation: ULTRASOUND BILATERAL LOWER EXTREMITY VENOUS CLINICAL HISTORY: Atypical chest pain. Clinical concern for deep venous thrombosis. COMPARISON STUDY: Right lower extremity venous ultrasound dated 08/25/2017. Bilateral lower extremity venous ultrasound dated 10/03/2016. TECHNIQUE: Real-time, grayscale, and color Doppler sonography of the deep veins of the right and left lower extremity was performed from the inguinal crease to the calf. Compression and augmentation were utilized. FINDINGS: There is no sonographic evidence of deep venous thrombosis identified in the right or left lower extremity. The common femoral, superficial femoral, and popliteal veins are patent and normally compressible bilaterally. The greater saphenous vein and the profunda femoris vein at the junction with the common femoral vein are clear in both legs. The visualized calf veins are patent bilaterally. IMPRESSION: There is no sonographic evidence of deep venous thrombosis identified in the right or left lower extremity. Electronically signed by: Adolph Duarte M.D. 09/15/2018 6:47 PM Dictated: 09/15/181845 Transcribed: 09/15/181845 SINGLE VIEW CHEST CLINICAL HISTORY: Atypical chest pain. FINDINGS: An AP, portable, upright chest radiograph is compared to study dated 06/20/2018 and correlated with chest CT dated 06/17/2018. The examination is degraded by portable technique, apical lordotic positioning, and patient rotation. The cardiomediastinal silhouette is unremarkable. Foci of patchy consolidative change are noted in the right lower lung. Left lung appears clear. No large pleural effusion or pneumothorax is seen. The bony thorax is grossly intact. IMPRESSION: Foci of patchy consolidative change are noted in the right lung base. Correlate clinically for evidence of an infectious/inflammatory pneumonitis. Electronically signed by: Adolph Duarte M.D. 09/15/2018 6:03 PM Dictated: 09/15/181800 Transcribed: 09/15/181800 ECG Data Attestation: I personally reviewed and interpreted this ECG as follows: Indication: SOB/dyspnea Rate (beats per minute): 58 Rhythm: sinus bradycardia Findings: + other (Normal axis); no PVC Blood Pressure Blood Pressure Findings: Normal blood pressure MDM Narrative Patient is a 28-year-old male who presents the ER for hemoptysis referred in following a CT. CT was reviewed in [employer] system which showed questionable PEs along with scattered ill-defined groundglass opacities and patchy consolidations which may represent pneumonia versus blood. Called over discussed with patient radiology who notes that they do not truly see any PEs but rather this is likely respiratory motion artifact. Vitals are unremarkable. Labs were obtained and showed no significant leukocytosis or anemia. INR was 3.6. BMP was unremarkable. LFTs show a mild transaminitis. Troponin was negative. Lipase unremarkable. Chest x-ray confirms the infiltrate. Discussed with pulmonology who notes that he may need a bronc. Updated patient at bedside. I do favor that this is either infectious or blood. We will not reverse him at this time but did cover him with IV cefepime , Levaquin and vancomycin. Patient was updated bedside. Duplex of the lower extremities was negative and confirms that this is likely not PE in origin. Patient was admitted to the hospitalist to likely be scoped tomorrow. Impression & Plan Hemoptysis, PNA (pneumonia) Discharge Plan Visit Data Chief Complaint: Cough Stated Complaint: COUGH W/ BLOOD, (CT SHOWING POSSIBLE CLOT IN LUNG) ED Provider: Javad Maldonado Discharge Problem: Hemoptysis, PNA (pneumonia) Patient Disposition: Being Evaluated by Hospitalist Discharge Instructions Interventions: ED Discharge Assessment Last Done: 09/15/18 19:58 Forms Stand Alone Forms: My [facility] Prescriptions Prescriptions: No Action atorvastatin [Lipitor] 40 mg tablet 40 mg PO QAM RF: 0 levetiracetam [Keppra] 500 mg tablet 500 mg PO BID RF: 0 aspirin [Aspir-Low] 81 mg Tablet,Delayed Release (Dr/Ec) 81 mg PO QAM RF: 0 hydroxychloroquine [Plaquenil] 200 mg tablet 400 mg PO HS RF: 0 fluticasone [Flonase Allergy Relief] 50 mcg/actuation [place],Suspension 2 spray INTRANASAL DAILY PRN (Reason: Allergy Symptoms) RF: 0 lamotrigine [Lamictal] 100 mg tablet 300 mg PO BID RF: 0 warfarin [Coumadin] 7.5 mg tablet 7.5 mg PO MOWEFRSA RF: 0 warfarin 7.5 mg tablet 11.25 mg PO SUTUTH RF: 0 lamotrigine 25 mg tablet 25 mg PO DIRECTED PRN (Reason: TO ADJUST LEVELS) RF: 0 cephalexin 500 mg capsule 500 mg PO QID RF: 0 Referrals Referrals: Mukesh Boyd [Primary Care Provider] - The scribe's documentation has been prepared under my direction and personally reviewed by me in its entirety. I confirm that the note above accurately reflects all work, treatment, procedures, and medical decision making performed by me.
--- NOTE | 2018-09-15 20:38 | History & Physical Report ---
Date of Service September 15, 2018 Assessment & Plan (1) Hemoptysis: (2) Lupus: (3) Antiphospholipid antibody with hypercoagulable state: -admit to tele -Patient sent to ED by outpatient provider for evaluation of hemoptysis. Outpatient CT demonstrated multifocal pneumonia vs. pulmonary hemorrhage. -Recent admission 06/2018 for hemoptysis, infectious vs. 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 if pneumonitis exacerbated by environmental exposure and in the setting of a mildly supra therapuetic INR (3.6 today) caused the hemoptysis. Also noted that patient uses vaporized medical marijuana each evening, however this is not new. -Also consider infectious etiolgoy as well -Currently hemodynamically stable, saturating well on room air, afebrile, no leukocytosis -ED notified Dr. Valenzuela who recommended the patient be admitted and have bronchoscopy. Case was discussed with Dr. Blackwood who will preform bronchoscopy tomorrow in the ICU. -s/p Vanco, Levaquin, and Cefepime in the ED; continue with Levaquin and Cefepime; check MRSA nasal swab and add Vanco if positive -case discussed with patient's magnetic observer, Dr. Rashid who recommends checking labs: ESR, C3, C4, antiDNA; continue Plaquenil -will defer use of steroids to pulmonary -give Vit K 5mg PO in preparation for bronchoscopy tomorrow (4) History of pulmonary embolism: (5) History of stroke: -In the setting of antiphospholipid syndrome -Anticoagulation as above -Noted that outpatient CT question possible subsegmental PE. This finding was discussed by ED provider with radiologist at [facility] who feels as though it was likely motion artifact rather than acute PE. Noted negative for venous Dopplers in the ED today. (6) Epilepsy: -Stable -Continue lamotrigine and levetiracetam (7) Transaminitis: -Currently being followed as an outpatient by GI -LFTs higher today than what they were on 08/29 as an outpatient - ? Due to acute illness -Scheduled for an outpatient EUS -Monitor LFTs (8) DVT prophylaxis: -Anticoagulation as above -SCDs when INR < 2.0 History of Present Illness Chief Complaint: Hemoptysis Primary Care Provider: Mukesh Boyd 28-year-old male who was sent to the ED by outpatient provider for evaluation of hemoptysis. Patient has history of SLE, antiphospholipid syndrome with PE and CVA in the past, anticoagulated on Coumadin. On 08/26, patient was seen at [facility] and placed on doxycycline for bronchitis. Patient reports that shortly after he finished his course of doxycycline, his symptoms returned. He was then seen again in the clinic on 09/08 and placed on a course of Keflex. Patient reports an improvement in his symptoms until about 4 days ago. Patient reports his symptoms include shortness of breath with minimal exertion, chest tightness, productive cough for yellow/green sputum and more recently hemoptysis. 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 The following day is when his symptoms began to get worse and he developed hemoptysis. He reports that hemoptysis has been progressively getting worse. He was seen in outpatient clinic today where CT chest was obtained that demonstrated multifocal pneumonia versus pulmonary hemorrhage. He was referred to the ED for further evaluation. Patient reports he has felt occasional chills however does not feel as though he has had a fever. He denies lightheadedness, dizziness, diaphoresis, syncopal events. He reports some diarrhea while being on the antibiotics however denies abdominal pain, nausea, vomiting, bright bleeding per rectum, dark tarry stools. No urinary symptoms. In the ED, patient is hemodynamically stable. Hemoglobin is stable at 15.8 and INR is noted to be 3.6. He was given IVF, IV Vanco, IV Levaquin, IV cefepime. Allergies Allergy/AdvReac Type Severity Reaction Status Date / Time tramadol Allergy Severe SHORTNESS Verified 09/15/18 18:20 OF BREATH Penicillins Allergy Unknown HIVES AND Verified 09/15/18 18:20 MILD WHEEZING Home Medications Home Medications Medication Instructions Recorded Confirmed Type aspirin [Aspir-Low] 81 mg PO QAM 06/17/18 09/15/18 History atorvastatin [Lipitor] 40 mg PO QAM 06/17/18 09/15/18 History fluticasone [Flonase Allergy 2 spray INTRANASAL DAILY PRN 06/17/18 09/15/18 History Relief] hydroxychloroquine [Plaquenil] 400 mg PO HS 06/17/18 09/15/18 History lamotrigine [Lamictal] 300 mg PO BID 06/17/18 09/15/18 History levetiracetam [Keppra] 500 mg PO BID 06/17/18 09/15/18 History warfarin [Coumadin] 7.5 mg PO MOWEFRSA 07/09/18 09/15/18 History cephalexin 500 mg PO QID 09/15/18 09/15/18 History lamotrigine 25 mg PO DIRECTED PRN 09/15/18 09/15/18 History warfarin 11.25 mg PO SUTUTH 09/15/18 09/15/18 History Past Med/Surg History Medical History Lupus (Chronic) Libman Sacks endocarditis (Resolved) Antiphospholipid antibody with hypercoagulable state (Chronic) Epilepsy (Chronic) Depression (Chronic) History of stroke (Chronic) Pulmonary embolism (Resolved) Transaminitis (Chronic) History of pulmonary embolism (Chronic) Anticoagulated (Inactive) Heart valve vegetation (Inactive) Pulmonary alveolar hemorrhage (Inactive) Surgical History H/O wisdom tooth extraction (Resolved) Social History Current Living Situation: Family current occupational status: student Other Information That Helps Us Care for You: No Feels Safe at Home: Yes Smoking Status: Former smoker Hx Alcohol Use: Yes Alcohol Intake Frequency: a few times a month Hx Substance Use: Yes substance use type: marijuana Substance Use Type Other:: medical marijuana for seizures Beliefs That Will Affect Care: None Preferred Language: Vietnamese Communication Ability: Effective Visual Impairment: No Limitations Hearing Ability: Normal Review of Systems ROS per HPI, all other systems reviewed and negative Physical Exam 2 Vital Signs (Past 24 Hours): Last Vital Signs Temp 36.9 C 09/15/18 17:02 Pulse 61 09/15/18 19:51 Resp 13 09/15/18 19:51 BP 124/68 09/15/18 19:51 Pulse Ox 96 09/15/18 19:51 Constitutional: WD/WN, vitals as above Eyes: PERRL, conjunctivae normal, anicteric sclerae ENMT: external ear and nose normal, oropharynx normal Respiratory: normal respiratory effort; no respiratory distress Auscultation: + diminished lung sounds (Bilateral bases) Cardiovascular: Rate/Rhythm: regular rate and regular rhythm Vessels: normal peripheral pulses Extremities: no edema Gastrointestinal (Abdomen): normal bowel sounds, soft, nontender, no hepatosplenomegaly Musculoskeletal: no cyanosis or clubbing, extremities motor strength 5/5 Skin: no rashes, warm and dry Neurologic: PERRL, EOMI, accommodation nl, no face palsy, no dysarthria Psychiatric: A+Ox3, euthymic affect Results & Data Laboratory Results Laboratory Last Values WBC 5.90 K/uL (4.8-10.8) 09/15/18 18:14 RBC 5.22 M/uL (4.7-6.1) 09/15/18 18:14 Hgb 15.8 g/dL (14.0-18.0) 09/15/18 18:14 Hct 43.9 % (42-52) 09/15/18 18:14 MCV 84.1 fL (80-100) 09/15/18 18:14 MCH 30.3 pg (25-34) 09/15/18 18:14 MCHC 36.0 g/dL (32-36) 09/15/18 18:14 RDW Std Deviation 36.9 fL (36.4-46.3) 09/15/18 18:14 RDW Coeff of Norma 12.0 % (11.5-14.5) 09/15/18 18:14 Plt Count 193 K/uL (130-400) 09/15/18 18:14 MPV 10.3 fL (7.4-10.4) 09/15/18 18:14 Immature Gran % (Auto) 0.2 % 09/15/18 18:14 Neut % (Auto) 62.5 % 09/15/18 18:14 Lymph % (Auto) 24.1 % 09/15/18 18:14 Sawyer % (Auto) 9.3 % 09/15/18 18:14 Eos % (Auto) 3.2 % 09/15/18 18:14 Baso % (Auto) 0.7 % 09/15/18 18:14 Immature Gran # (Auto) 0.01 K/uL (0.00-0.02) 09/15/18 18:14 Neut # (Auto) 3.69 K/uL (1.4-6.5) 09/15/18 18:14 Lymph # (Auto) 1.42 K/uL (1.2-3.4) 09/15/18 18:14 Sawyer # (Auto) 0.55 K/uL (0.11-0.59) 09/15/18 18:14 Eos # (Auto) 0.19 K/uL (0-0.5) 09/15/18 18:14 Baso # (Auto) 0.04 K/uL (0-0.2) 09/15/18 18:14 PT 34.1 Seconds (9.0-12.0) H 09/15/18 18:14 INR 3.6 (0.9-1.1) H 09/15/18 18:14 Sodium 140 mmol/L (136-145) 09/15/18 18:14 Potassium 4.1 mmol/L (3.5-5.1) 09/15/18 18:14 Chloride 106 mmol/L (98-107) 09/15/18 18:14 Carbon Dioxide 29 mmol/L (21-32) 09/15/18 18:14 Anion Gap 5.0 (3-11) 09/15/18 18:14 BUN 13 mg/dl (7-18) 09/15/18 18:14 Creatinine 1.33 mg/dl (0.6-1.4) 09/15/18 18:14 Est Cr Clr Drug Dosing 91.4 ml/min 09/15/18 18:14 Est GFR ( Amer) 84.3 09/15/18 18:14 Est GFR (Non-Af Amer) 72.7 09/15/18 18:14 BUN/Creatinine Ratio 10.1 (10-20) 09/15/18 18:14 Glucose 84 mg/dl (70-99) 09/15/18 18:14 Calcium 8.6 mg/dl (8.5-10.1) 09/15/18 18:14 Total Bilirubin 0.7 mg/dl (0.2-1) 09/15/18 18:14 AST 48 U/L (15-37) H 09/15/18 18:14 ALT 108 U/L (12-78) H 09/15/18 18:14 Alkaline Phosphatase 138 U/L (45-117) H 09/15/18 18:14 Troponin I < 0.015 ng/ml (0-0.045) 09/15/18 18:14 Total Protein 7.5 gm/dl (6.4-8.2) 09/15/18 18:14 Albumin 3.9 gm/dl (3.4-5.0) 09/15/18 18:14 Globulin 3.6 gm/dl (2.5-4.0) 09/15/18 18:14 Albumin/Globulin Ratio 1.1 (0.9-2) 09/15/18 18:14 Lipase 145 U/L (73-393) 09/15/18 18:14 Diagnostic Findings CXR IMPRESSION: Foci of patchy consolidative change are noted in the right lung base. Correlate clinically for evidence of an infectious/inflammatory pneumonitis. BLE VENOUS DOPPLER IMPRESSION: There is no sonographic evidence of deep venous thrombosis identified in the right or left lower extremity. [facility] 1. Limited exam secondary to patient breathing motion artifacts. Several small linear filling defects in several bilateral segmental and subsegmental pulmonary arteries may represent small pulmonary emboli. 2. Scattered ill-defined bilateral ground-glass opacities and patchy consolidations, most significantly involving the right lung, may represent multifocal pneumonia. The findings are however are nonspecific and can also be seen with pulmonary hemorrhage among other possibilities. Please also correlate clinically. No pleural effusions. Code Status & VTE Plan VTE Prophylaxis Plan VTE Prophylaxis will be ordered: Yes Supervising Physician Co-Signing Physician Notes HISTORY: Record reviewed. Patient interviewed and examined. Care coordinated with SANDRA Rodriguez. Please refer to her documentation for patient's history. Briefly, 28-year-old male with history of SLE, antiphospholipid syndrome ( history of pulmonary embolism, embolic stroke, Libman Sacks endocarditis) anticoagulated with warfarin. Hospitalized at [facility] in June with hemoptysis and pleuritic chest pain. CTA of chest on 06/17/18 negative for pulmonary embolism; multifocal groundglass pulmonary opacities were noted. Pulmonary Medicine consulted. Differential diagnosis of hemoptysis included pneumonia and alveolar hemorrhage. Treated with a course of ceftriaxone transition to cefuroxime and steroids. Seen in urgent care center a few weeks ago for a cough and treated with doxycycline. Worsening cough associated with hemoptysis over the past few days. Hemoptysis described as small blood clots. Noting chills, but no documented fever. CT of chest performed in clinic demonstrated bilateral infiltrates suggesting pneumonia versus pulmonary hemorrhage. Patient was referred to the hospital for further evaluation and management. EXAM: General- young adult male in no distress Lungs- few scattered rhonchi, no wheezing; no respiratory distress Cardiovascular- RRR; no murmur, gallop, or rub appreciated; no JVD; no pretibial edema Abdomen- + bowel sounds, soft, nontender Extremities- no cyanosis; no calf tenderness Neuro- alert, oriented Skin- warm & dry DATA: Hemoglobin 15.8, white count 5900, platelet count 193,000. INR 3.6. Chemistries show normal electrolytes, BUN 13, creatinine 1.33, glucose 84. Liver profile demonstrated total bilirubin 0.7, AST 48, ALT 108, alkaline phosphatase 138. Other lab studies as noted. Chest x-ray reviewed reviewed by the undersigned and formally interpreted by Radiology. Patchy infiltrates noted at right base. Venous duplex of lower extremities negative for DVT. EKG performed at 1753 reviewed and demonstrated sinus bradycardia at 58 / minute , no acute changes. ASSESSMENT AND PLAN: Hemoptysis. Abnormal CT of chest. SLE. Antiphospholipid antibody syndrome. Empiric IV antibiotics. Patient prefers to avoid steroids if possible. Consult Pulmonary Medicine. Hold warfarin and administer vitamin K 5 mg x 1 in anticipation of possible bronchoscopy. Please refer to ARMINDA Mckeon's documentation for discussion of other issues.
[2018-09-15 22:34] LABS: Amphetamines+Metham, Urine Neg (Neg); Barbiturates, Urine Neg (Neg); Benzodiazepine, Urine Neg (Neg); Cocaine, Urine Neg (Neg); MDMA (Ecstacy), Urine Neg (Neg); Methadone, Urine Neg (Neg); Opiate, Urine Neg (Neg); Phencyclidine, Urine Neg (Neg)
[2018-09-15] MEDS ORDERED: ACETAMINOPHEN 325 MG TAB PO PRN (22:55)
[2018-09-15] MEDS: levETIRAcetam 500 MG TAB PO SCH (23:53)
[2018-09-15] MEDS: lamoTRIgine 100 MG TAB PO SCH (23:53)
[2018-09-16] MEDS: HYDROXYCHLOROQUINE SULFATE 200 MG TAB PO SCH ×2 (00:22→19:10)
[2018-09-16] MEDS: CEFEPIME 2,000 MG in SYRINGE 7.5 ML IV SCH ×3 (04:15→19:09)
[2018-09-16] MEDS: lamoTRIgine 100 MG TAB PO SCH ×2 (07:48→19:10)
[2018-09-16] MEDS: levETIRAcetam 500 MG TAB PO SCH ×2 (07:48→19:10)
[2018-09-16 08:31] LABS: Hematocrit (blood only) 45.2 % (42-52); Mean Corpuscular Hgb Conc 35.4 g/dL (32-36); Mean Corpuscular Volume 84.5 fL (80-100); Mean Platelet Volume 10.4 fL (7.4-10.4); Platelet Count 181 K/uL (130-400); RDW Standard Deviation 36.7 fL (36.4-46.3); Red Blood Count 5.35 M/uL (4.7-6.1)
[2018-09-16 08:43] LABS: INR 3.2 (0.9-1.1); Prothrombin Time 30.5 Seconds (9.0-12.0)
--- NOTE | 2018-09-16 08:43 | Critical Care Progress Note ---
Date of Service September 16, 2018 Physical Exam Vital Signs (Past 24 Hours): Last Vital Signs Temp 37.0 C 09/16/18 07:04 Pulse 66 09/16/18 07:04 Resp 18 09/16/18 07:04 BP 104/64 09/16/18 07:04 Pulse Ox 98 09/16/18 07:04
[2018-09-16 08:55] LABS: Influenza A virus by PCR Neg for Influ A (Neg); Influenza B virus by PCR Neg for Influ B (Neg)
[2018-09-16] MEDS ORDERED: ATORVASTATIN 40 MG TAB PO SCH (09:00)
[2018-09-16 09:05] LABS: Albumin Level 3.8 gm/dl (3.4-5.0); BUN Creatinine Ratio 16.8 (10-20); Calcium 8.8 mg/dl (8.5-10.1); Creatinine Clr Calc Pharmacy 103.6 ml/min; Est GFR (African American) 99.5; Est GFR (Non-African American) 85.8; Potassium 4.3 mmol/L (3.5-5.1)
[2018-09-16 09:16] LABS: Albumin Globulin Ratio 1.1 (0.9-2); Bilirubin,Total 1.4 mg/dl (0.2-1); Globulin 3.5 gm/dl (2.5-4.0); Total Protein 7.3 gm/dl (6.4-8.2)
--- NOTE | 2018-09-16 13:15 | Consultation Report ---
DATE OF CONSULTATION: 09/16/2018 PULMONARY CONSULTATION TIME: 10:10 a.m. REPORT OF CONSULTATION: The patient was seen in room 239, bed 1. He is a 28-year-old male who presented to the Emergency Room yesterday with hemoptysis. He has a very complex history. Regarding the hemoptysis, this is not entirely a new problem. It has increased in frequency, however. He came to the Emergency Room on 06/17/2018 with some hemoptysis. He was treated with antibiotics and discharged. He came back on 06/20/2018 and was admitted until 06/23/2018. He had increasing shortness of breath and cough. Dr. Vu saw him from the Pulmonary Department. He was discharged with some prednisone and antibiotics. The patient states he did not like the way the prednisone made him feel. Apparently, he was also maintained on some prednisone for a while as an outpatient as he was following up with Dr. Person. He states he developed some weight gain as well as some acne that he thought was prednisone related. He came to the ER again on 07/09/2018 with chest and right calf pain. He was treated and released. Over , he did pretty well and was not coughing up any blood. Early in July, he started with hemoptysis again. He did go to an [facility]. He had 2 courses of antibiotics. He would get intermittent back pain. This has been an ongoing issue for a few years. More recently, the hemoptysis has been a little more. He states it is most in the morning and gets less as the day goes on. It is typically mixed with mucus. He showed me a picture on his phone of some blood he coughed recently. He states he has never coughed up a shot glass full of blood in the day. He estimates it would be a half a shot glass or less. Thus, this might be 6 or 7 mL. This would obviously be just a guess. The patient yesterday saw his [facility] doctors and had a CAT scan done up at [facility]. The CAT scan showed ground-glass changes that were fairly diffuse. The CAT scan done yesterday was relatively similar to the CAT scan done on 06/17/2018 except the areas of the ground-glass changes had changed somewhat. The more recent CAT scan showed most changes in the right lower lobe and right middle lobe where as the prior CAT scan showed most changes in the left upper and left lower lobe. Actually, the patient has had a bronchoscopy done by Dr. Lepe in 09/2016. He also had somewhat similar ground-glass changes at that time as well. Nothing grew out of the specimens from the 2017 bronchoscopy. The patient has brought up very little blood since he came in. He has had a very systemic disorder. It is not clear to me if he is definitively been diagnosed with lupus or not, but lupus has been suspected. He had a CVA that he thinks was back about 2016. He was diagnosed with antiphospholipid syndrome. He has had 2 episodes of pulmonary embolism. He carries a diagnosis of epilepsy since 2013. He has had chronic myositis and arthritis. It could well be that these are all interrelated to his underlying systemic disease. The patient has not had nosebleeds. He has not had vomiting. He states his appetite is good. He does not have any bowel problems other than very occasional diarrhea. His energy level is good. 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 He has some shortness of breath at times, but not terribly. His oxygenation is almost always good. He previously did have a transesophageal echo. I do not know the exact results. There was a question if he may have had heart valve vegetation in the past, but it does not sound like he was treated for endocarditis. PAST SURGICAL HISTORY: 1. [place] teeth removal. 2. Bronchoscopy. 3. SANDIE. PAST MEDICAL HISTORY: As noted previously in the history of present illness. SOCIAL HISTORY: Tobacco: He smoked about 3 years and quit in 2011. He does, however, use marijuana that he describes as medical marijuana. He does do this through some sort of pipe. Alcohol use is just a very occasional beer. ALLERGIES: PENICILLIN WHICH CAUSED HIVES. FAMILY HISTORY: Mother living at age 60, depression. Father living at age 65, prediabetes. Three siblings alive and well. REVIEW OF SYSTEMS: Negative except as noted already in the history of present illness. PHYSICAL EXAMINATION: GENERAL: The patient is a 28-year-old male who was cooperative, alert and oriented. He was in no distress. Weight is 92.3 kilograms. BMI 31.9. VITAL SIGNS: Temperature is 37 degrees. There have been no fevers. HEENT: Pupils were reactive to light. Nares were clear. Mouth and oropharynx showed no erythema or exudate. NECK: Palpation of the neck reveals no lymph nodes. He has a fairly large neck. HEART: Rate was 58 per minute. Rhythm regular. Blood pressure 104/64. LUNGS: Lung valdes are clear bilaterally. No wheezes, rales, or rhonchi heard. There was no apparent chest pain. ABDOMEN: Soft. Bowel sounds are normal. There was no tenderness to palpation or masses. EXTREMITIES: Showed no cyanosis, clubbing or edema. LABORATORY DATA: White count is 7.0, hemoglobin 16, platelets 181,000. INR yesterday was 3.6 and today was 3.2. It should be noted that the patient has been on Coumadin as an outpatient. Electrolytes show sodium 140, potassium 4.3, chloride 106, bicarb 26. BUN is 20 with a creatinine of 1.16. Bilirubin was elevated at 1.4. AST was top normal at 37. ALT elevated at 95. Alkaline phosphatase elevated at 127. Albumin and protein were normal. Lipase was normal. Procalcitonin was 0.13, which would be normal. Drug screen was positive only for marijuana. It is notable that an RUDDY screen was positive on 06/20/2018 and the titer was 1:160. The pattern was homogeneous. Flu test was negative. Venous Doppler done yesterday was negative for DVT. IMPRESSION: 1. Hemoptysis. 2. Probable lupus. 3. Diffuse ground-glass changes on CAT scan present times at least 2 years. 4. History of pulmonary emboli x2. 5. Antiphospholipid antibody syndrome. 6. Elevated LFTs. COMMENTS AND RECOMMENDATIONS: The patient has had small quantities of hemoptysis, which has been more persistent than it had been. I suspect this is related to his underlying systemic disease. He had 1 bronchoscopy done 2 years ago with similar presentation and CAT scan findings with no definite diagnosis of infection or malignancy. Malignancy would certainly be low on the expectation. I discussed this case with Dr. Quezada, who is the patient's hospitalist. I believe the patient should be evaluated at a [facility] such as [facility]. He had been hoping to go to [facility], but does not have insurance coverage there. I am doubtful that he would be accepted there on transfer as he seems quite stable. I do not believe he needs a bronchoscopy immediately at this time. I think it makes more sense to have him evaluated at [facility] and get their opinion as to the source of his overall problems. Obviously, he should be maintained on the Coumadin. I have no objection giving him outpatient antibiotics and perhaps a short course of prednisone. Thank you very much for asking me to assist in his care.
[2018-09-16] MEDS ORDERED: HYDROmorphone INJ 1 MG/ML SYRINGE IV STA (13:51)
[2018-09-16] MEDS ORDERED: FLUTICASONE PROPIONATE NA SPR 16 GM BTL NAE PRN (15:54)
[2018-09-16] MEDS ORDERED: lamoTRIgine 25 MG TAB PO PRN (15:54)
[2018-09-16] MEDS ORDERED: GUAIFENESIN/CODEINE 100MG/10MG 5ML UDC PO PRN (15:57)
[2018-09-16] MEDS ORDERED: WARFARIN SOD 7.5 MG TAB PO SCH (16:00)
[2018-09-16] MEDS ORDERED: WARFARIN PO SCH (16:30)
[2018-09-16] MEDS ORDERED: predniSONE 20 MG TAB PO STA (17:04)
[2018-09-16] MEDS: HYDROmorphone INJ 1 MG/ML SYRINGE IV PRN ×2 (17:23→21:59)
--- NOTE | 2018-09-16 18:03 | Discharge Summary ---
Date of Service September 16, 2018 Admission HPI Per Admitting Provider 28-year-old male who was sent to the ED by outpatient provider for evaluation of hemoptysis. Patient has history of SLE, antiphospholipid syndrome with PE and CVA in the past, anticoagulated on Coumadin. On 08/26, patient was seen at [facility] and placed on doxycycline for bronchitis. Patient reports that shortly after he finished his course of doxycycline, his symptoms returned. He was then seen again in the clinic on 09/08 and placed on a course of Keflex. Patient reports an improvement in his symptoms until about 4 days ago. Patient reports his symptoms include shortness of breath with minimal exertion, chest tightness, productive cough for yellow/green sputum and more recently hemoptysis. 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 The following day is when his symptoms began to get worse and he developed hemoptysis. He reports that hemoptysis has been progressively getting worse. He was seen in outpatient clinic today where CT chest was obtained that demonstrated multifocal pneumonia versus pulmonary hemorrhage. He was referred to the ED for further evaluation. Patient reports he has felt occasional chills however does not feel as though he has had a fever. He denies lightheadedness, dizziness, diaphoresis, syncopal events. He reports some diarrhea while being on the antibiotics however denies abdominal pain, nausea, vomiting, bright bleeding per rectum, dark tarry stools. No urinary symptoms. In the ED, patient is hemodynamically stable. Hemoglobin is stable at 15.8 and INR is noted to be 3.6. He was given IVF, IV Vanco, IV Levaquin, IV cefepime. Principal Diagnosis HEMOPTYSIS/PULMONARY EMBOLISM /SLE/POSSIBLE LUPUS PNEUMONITIS Discharge Exam Constitutional WD/WN, vitals as above Eyes PERRL, conjunctivae normal, anicteric sclerae ENMT external ear and nose normal, oropharynx normal Respiratory normal respiratory effort; no respiratory distress Auscultation: + diminished lung sounds (Bilateral bases) Cardiovascular Rate/Rhythm: regular rate and regular rhythm Vessels: normal peripheral pulses Extremities: no edema Gastrointestinal (Abdomen) normal bowel sounds, soft, nontender, no hepatosplenomegaly Musculoskeletal no cyanosis or clubbing, extremities motor strength 5/5 Skin no rashes, warm and dry Neurologic PERRL, EOMI, accommodation nl, no face palsy, no dysarthria Psychiatric A+Ox3, euthymic affect Discharge Data Allergies Allergy/AdvReac Type Severity Reaction Status Date / Time tramadol Allergy Severe SHORTNESS Verified 09/15/18 18:20 OF BREATH Penicillins Allergy Unknown HIVES AND Verified 09/15/18 18:20 MILD WHEEZING Consultations 09/15/18 18:17 ED Decision to Admit Stat 09/15/18 22:55 Consult Physician Routine Consult Pulmonology Routine Ordered Studies 09/15/18 17:36 US venous doppler LE BI Stat 09/16/18 17:39 CT lumbar spine w con Stat Hospital Course (1) Hemoptysis: (2) Lupus: (3) Antiphospholipid antibody with hypercoagulable state: - -Patient sent to ED by outpatient provider for evaluation of hemoptysis. Outpatient CT demonstrated multifocal pneumonia vs. pulmonary hemorrhage. -Recent admission 06/2018 for hemoptysis, infectious vs. 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 if pneumonitis exacerbated by environmental exposure and in the setting of a mildly supra therapuetic INR caused the hemoptysis. Also noted that patient uses vaporized medical marijuana each evening, however this is not new. 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 This ;lower ext dopplar negative for DVT (6) Epilepsy: -Stable -Continue lamotrigine and levetiracetam (7) Transaminitis: -Currently being followed as an outpatient by GI (8) DVT prophylaxis: -on coumadin BACK PAIN : 'has chronic back pain due to prior hx of trauma /wt lifiting complains of severe back pain , worse with minimum movement CT lumber spine : DISPOSITION : will be transferred to [place] today for further care Total Time Total Time Spent Total Time Spent (In Minutes): 35 mins Total Time Includes: Examination of the Patient, Discharge Planning and Med ication Reconciliation Discharge Plan Discharge Items Patient Disposition: Transfer Acute Care Hospital Reason For Visit: COUGH W/ BLOOD, (CT SHOWING POSSIBLE CLOT IN LUNG) Discharge Diagnosis: HEMOPTYSIS/PULMONARY EMBOLISM /SLE/POSSIBLE LUPUS PNEUMONITIS Discharge Goals: Decrease discomfort Activity: Resume your previous activity Non-emergency contact: Primary Care Provider Call non-emergency contact if: you have any medication questions Diet: Regular Addtl Provider Instructions: PATIENT IS BEING TRANSFERRED TO [facility] ACCEPTING PHYSICIAN ; DR ROSADO -HOSPITALIST , [facility] Prescriptions: New cefepime 2 gram recon soln 2 gm IV Q12H 7 Days Qty: 14 RF: 0 prednisone 20 mg tablet 60 mg PO DAILY 7 Days Qty: 21 RF: 0 Continued atorvastatin [Lipitor] 40 mg tablet 40 mg PO QAM RF: 0 levetiracetam [Keppra] 500 mg tablet 500 mg PO BID RF: 0 aspirin [Aspir-Low] 81 mg Tablet,Delayed Release (Dr/Ec) 81 mg PO QAM RF: 0 hydroxychloroquine [Plaquenil] 200 mg tablet 400 mg PO HS RF: 0 fluticasone [Flonase Allergy Relief] 50 mcg/actuation [place],Suspension 2 spray INTRANASAL DAILY PRN (Reason: Allergy Symptoms) RF: 0 lamotrigine [Lamictal] 100 mg tablet 300 mg PO BID RF: 0 warfarin [Coumadin] 7.5 mg tablet 7.5 mg PO MOWEFRSA RF: 0 warfarin 7.5 mg tablet 11.25 mg PO SUTUTH RF: 0 lamotrigine 25 mg tablet 25 mg PO DIRECTED PRN (Reason: TO ADJUST LEVELS) RF: 0 Discontinued cephalexin 500 mg capsule 500 mg PO QID RF: 0 Stand-Alone Forms: [facility] Discharge Orders: Discharge Order (Routine); Ordered 09/16/18 Ordered By: Jenny Quezada Admission Data Admit Date/Time: 09/15/18 18:56 Attending Provider: Jenny Quezada Admit Provider: Uriah Huang Primary Care Provider: Mukesh Boyd Other Providers: Tawanda Valenzuela ; Sanchez Blackwood Service: Telemetry Other Interventions: Discharge Summary Assessment (RN) Last Done: 09/16/18 17:14 DC Date/Time DO NOT enter until pt leaves facility: 09/16/18 22:23
[2018-09-16] MEDS ORDERED: IOVERSOL 100ml IV PRN (18:11)
--- NOTE | 2018-09-16 18:21 | CT Scan Report ---
CT lumbar spine w con CT DOSE: 677.39 mGy.cm CLINICAL HISTORY: intractable back pain /rule out epidural hematoma TECHNIQUE: The patient was scanned following administration of 93 cc of Optiray 320. Sagittal and cor onal reformatted images were acquired. A dose lowering technique was utilized adhering to the princi ples of SAMUEL. COMPARISON STUDY: None. FINDINGS: There is a T12-L1 disc osteophyte complex. There is no significant spinal or foraminal stenosis prese nt at this level. L1-2 level: There is no evidence of significant disc bulge or focal herniation. There is no evidence of spinal or foraminal stenosis L2-3 level: There is no evidence of significant disc bulge or focal herniation. There is no evidence of spinal or foraminal stenosis L3-4 level: There is a mild circumferential disc bulge. There is minimal spinal canal narrowing. Ther e is no foraminal stenosis L4-5 level: There is a mild circumferential disc bulge. There is mild spinal canal narrowing. There i s no significant foraminal narrowing. There is L5 limbus vertebra. L5-S1 level: There is a minimal circumferential disc bulge. There is no significant spinal or foramin al stenosis. No acute fractures or subluxations are visualized. No paraspinal masses are visualized. There are no CT findings to indicate epidural hematoma. IMPRESSION: 1. No acute fractures or subluxations 2. L5 limbus vertebra 3. Circumferential disc bulges with minor spinal stenosis at the L3-4 and L4-5 levels 4. T12-L1 disc osteophyte complex. No significant spinal stenosis. 5. There are no CT findings to indicate an epidural hematoma Electronically signed by: Haider Rob M.D. 09/16/2018 6:20 PM
[2018-09-16] MEDS ORDERED: LEVOFLOXACIN/D5W 750 MG/150 ML BAG IV SCH (19:00)
[2018-09-16] MEDS ORDERED: LIDOCAINE 5% 1 PATCH TD SCH (19:15)
[2018-09-17] MEDS ORDERED: ASPIRIN 81 MG ECTAB PO SCH (09:00)
[2018-09-17 15:52] LABS: Anti-dsDNA Recombinant 7 IU/ML; Complement C3 83 MG/DL (82-185)
[2018-09-17] MEDS ORDERED: WARFARIN SOD 7.5 MG TAB PO SCH (16:00)
== END 2018-09-16 22:23 | disposition short-term general hospital (02) | DRG 545 ==
LOC: ED 16:25 → 2S 18:56
DX: Z79.899 Other long term (current) drug therapy; G89.29 Other chronic pain; D68.61 Antiphospholipid syndrome; Z88.0 Allergy status to penicillin; J18.8 Other pneumonia, unspecified organism; Z51.81 Encounter for therapeutic drug level monitoring; G40.909 Epilepsy, unspecified, not intractable, without status epilepticus; Z86.711 Personal history of pulmonary embolism; Z79.82 Long term (current) use of aspirin; Z87.891 Personal history of nicotine dependence; I26.99 Other pulmonary embolism without acute cor pulmonale; Z79.01 Long term (current) use of anticoagulants; Z88.5 Allergy status to narcotic agent; Z84.89 Family history of other specified conditions; M32.13 Lung involvement in systemic lupus erythematosus; F32.9 Major depressive disorder, single episode, unspecified; Z81.8 Family history of other mental and behavioral disorders; M54.9 Dorsalgia, unspecified; R79.89 Other specified abnormal findings of blood chemistry; R04.2 Hemoptysis; Z86.73 Personal history of transient ischemic attack (TIA), and cerebral infarction without residual deficits

== ENCOUNTER 2021-12-03 10:33 | Inpatient (IN) ==
[2021-12-03] MEDS ORDERED: SODIUM CHLORIDE 0.9% 500 ML IV ONE (11:07)
[2021-12-03] MEDS ORDERED: CLINDAMYCIN 900 MG in DEXTROSE 5% 50 ML IV ONE (11:07)
[2021-12-03] MEDS ORDERED: MoRPHine SULFATE 4 MG/ML 1 ML CARP\\VIAL IV STA (11:07)
[2021-12-03] MEDS ORDERED: ONDANSETRON INJ 2 MG/ML 2 ML VIAL IV STA (11:07)
[2021-12-03 11:37] LABS: Basophils # (auto) 0.02 K/uL (0-0.2); Basophils % (auto) 0.2 %; Eosinophils % (auto) 1.2 %; Hematocrit (blood only) 44.9 % (42-52); Hemoglobin 16.1 g/dL (14.0-18.0); Immature Granulocytes # (auto) 0.01 K/uL (0.00-0.02); Immature Granulocytes % (auto) 0.1 %; Lymphocytes # (auto) 0.84 K/uL (1.2-3.4); Lymphocytes % (auto) 9.8 %; Mean Corpuscular Hemoglobin 30.5 pg (25-34); Mean Corpuscular Hgb Conc 35.9 g/dL (32-36); Mean Platelet Volume 10.1 fL (7.4-10.4); Monocytes # (auto) 1.38 K/uL (0.11-0.59); Monocytes % (auto) 16.1 %; Neutrophils # (auto) 6.23 K/uL (1.4-6.5); Neutrophils % (auto) 72.6 %; Platelet Count 211 K/uL (130-400); RDW Coefficient of Variation 12.6 % (11.5-14.5); RDW Standard Deviation 38.9 fL (36.4-46.3); Red Blood Count 5.28 M/uL (4.7-6.1); White Blood Count 8.58 K/uL (4.8-10.8)
--- NOTE | 2021-12-03 11:42 | Emergency Department Note ---
History of Present Illness General Chief complaint: Dental/Oral Stated complaint: DENTAL PAIN WITH FACIAL SWELLING Time Seen by Provider: 12/03/21 10:56 History of Present Illness Maximum Pain Intensity: 9 31-year-old male who presents to the emergency department with complaint of right lower jaw pain, dental pain, neck swelling and difficulty swallowing. The patient reports that he noticed right lower dental pain 3 days ago. He was able to relieve the pain by pushing down on the affected tooth. By Saturday, the pain has become more constant. The patient was seen at an urgent care center yesterday, and provided a prescription for penicillin, which he has taken. This morning when he woke up, he noticed neck swelling and difficulty swallowing. He denies fever or chills. The patient reports that the affected tooth does have a crown on it. The patient reports that he will contact his dentist tomorrow for further follow-up. The patient rates his discomfort a 7 out of 10. Tylenol is not helping with the pain anymore. The patient is currently on warfarin. Home Medications Medication Instructions Recorded Confirmed Type aspirin 81 mg tablet,delayed 81 mg PO QAM 06/17/18 09/15/18 History release (Aspir-Low) atorvastatin 40 mg tablet (Lipitor) 40 mg PO QAM 06/17/18 09/15/18 History fluticasone propionate 50 2 spray INTRANASAL DAILY PRN 06/17/18 09/15/18 History mcg/actuation nasal spray,suspension (Flonase Allergy Relief) hydroxychloroquine 200 mg tablet 400 mg PO HS 06/17/18 09/15/18 History (Plaquenil) lamotrigine 100 mg tablet 300 mg PO BID 06/17/18 09/15/18 History (Lamictal) levetiracetam 500 mg tablet 500 mg PO BID 06/17/18 09/15/18 History (Keppra) warfarin 7.5 mg tablet (Coumadin) 7.5 mg PO MOWEFRSA 07/09/18 09/15/18 History lamotrigine 25 mg tablet 25 mg PO DIRECTED PRN 09/15/18 09/15/18 History warfarin 7.5 mg tablet 11.25 mg PO SUTUTH 09/15/18 09/15/18 History Allergies Allergy/AdvReac Type Severity Reaction Status Date / Time tramadol Allergy Severe SHORTNESS Verified 09/15/18 18:20 OF BREATH Penicillins Allergy Unknown HIVES AND Verified 09/15/18 18:20 MILD WHEEZING Past Med/Surg History Medical History (Updated 12/03/21 @ 13:29 by Arjun Gould) Anticoagulated Antiphospholipid antibody with hypercoagulable state Depression Epilepsy Heart valve vegetation History of pulmonary embolism History of stroke Libman Sacks endocarditis Lupus Pulmonary alveolar hemorrhage Transaminitis Surgical History H/O wisdom tooth extraction Family History Mother Depression Father MATT (obstructive sleep apnea) Social History Smoking Status: Former smoker Tobacco Type: Cigarettes, Cigars and E-cigarettes / Vaping Second Hand Exposure: No; Hx Alcohol Use: Yes Alcohol type: beer Hx Substance Use: Yes Last Used Substance: Unknown Last Used Substance Other:: states smokes marijuana nightly Substance Use Type Other:: medical marijuana for seizures Preferred Language: Greek Communication Ability: Effective Visual Impairment: No Limitations Hearing Ability: Normal Toll Line Inspector Required: No Beliefs That Will Affect Care: None Current Living Situation: Parent Current Living Situation Comment: with parents while attending school current occupational status: student Other Information That Helps Us Care for You: No Feels Safe at Home: Yes Safety Concerns: Feels Safe At This Time Assistive Devices: None Review of Systems 10 system review was performed and was negative except for pertinent positives and negatives as indicated in history of present illness Physical Exam Vital Signs Vital Signs - 24 hr 12/03/21 10:43 Temperature 36.4 C L Temperature Source Temporal Artery Scan Pulse Rate 74 Respiratory Rate 18 Blood Pressure 119/77 Blood Pressure Mean 91 Pulse Oximetry 97 Oxygen Delivery Method Room Air Sepsis Recent Fever Within 48 Hours No Sepsis New/Unexplained Change in Mental Status No Sepsis Action Taken by Nursing No Action Required CONSTITUTIONAL: Healthy and well nourished. Patient does not appear in any acute distress. HEENT: Examination shows mild edema under the right mandible region. No overriding erythema noted. Examination of oropharynx shows no Satnam's angina. No gingival erythema, fluctuance or pointing. NECK: Full active range of motion without discomfort. LYMPHATICS: Mild right submandibular adenopathy is noted. RESPIRATORY: Clear to auscultation bilaterally with no wheezing, crackles, rhonchi or stridor. CARDIOVASCULAR: Regular rate and rhythm with a grade 2 out of 6 systolic ejection murmur. GASTROINTESTINAL: Bowel sounds present in all quadrants. Soft and nontender to palpation. MUSCULOSKELETAL: Full range of motion of all joints without discomfort. INTEGUMENTARY: No rash or other significant dermatologic conditions noted. HEMATOLOGIC: No ecchymosis or petechiae. PSYCHIATRIC: Positive affect. NEUROLOGIC: Facial sensations are intact. Course Course Patient history and physical exam were performed. Nurses notes were reviewed. Vital signs were reviewed and were normal. IV access was established, and labs were drawn. The patient was administered IV clindamycin, along with IV morphine and Zofran. He was also hydrated with a normal saline 500 cc bolus. Review of labs shows a normal white count. Sed rate and CRP are elevated. Glucose is mildly elevated, as is total bilirubin. The patient does have a chronically elevated total bilirubin. CT with IV contrast of the neck shows extensive inflammatory changes within the right anterior neck, centered at the right submandibular/perimandibular location, with no loculated fluid collections to suggest abscess. It is noted that this inflammatory changes does result in mild mass-effect against the tongue base and right mouth floor. The airway is p atent. Radiologist also makes mention of faint patchy groundglass densities within the lung apices, likely representing a viral pneumonia. The patient reports no recent upper respiratory symptoms, but does report history of atypical pneumonia in the past. Findings were discussed with Dr. Justice, ED attending physician, and Dr. Winn, [facility] hospitalist, for further admission and antibiotic management. Patient reported excellent pain control with pain medications provided. He also consents to further hospital management. I did discuss the risks of airway compromise with his type of an infection, and the patient understood significance of this infection. The patient did test negative for COVID. Administered Medications Acetaminophen (Acetaminophen 325 Mg Tab) 650 mg PO Q4H PRN PRN Reason: Pain or Fever Stop: 01/02/22 13:44 Last Admin: 12/03/21 14:53 Dose: 650 mg Documented by: [id number] Clindamycin Phosphate 600 mg/ (Dextrose) 54 mls @ 100 mls/hr IV Q8H NERISSA Stop: 12/13/21 18:59 Last Infusion: 12/03/21 20:33 Dose: 0 mls/hr Documented by: [id number] Admin: 12/03/21 18:27 Dose: 100 mls/hr Documented by: [id number] Levofloxacin/Dextrose (Levaquin/D5w) 750 mg in 150 mls @ 100 mls/hr IV Q24H NERISSA Stop: 12/13/21 14:59 Last Infusion: 12/03/21 17:39 Dose: 0 mls/hr Documented by: [id number] Admin: 12/03/21 15:51 Dose: 100 mls/hr Documented by: [id number] Lactobacillus Acidophilus (Advanced Probiotic 1250 Mg Capsule) 2 cap PO DAILY NERISSA Stop: 01/02/22 13:59 Last Admin: 12/03/21 15:51 Dose: 2 cap Documented by: [id number] Morphine Sulfate (Morphine Sulfate 2 Mg/Ml Carp) 2 mg IV Q6H PRN PRN Reason: Pain Stop: 12/17/21 14:00 Last Admin: 12/03/21 15:54 Dose: 2 mg Documented by: [id number] Discontinued Medications Sodium Chloride (Nss) 500 mls @ 999 mls/hr IV .Q31M ONE Stop: 12/03/21 11:37 Last Infusion: 12/03/21 12:26 Dose: 0 mls/hr Documented by: [id number] Admin: 12/03/21 11:25 Dose: 999 mls/hr Documented by: [id number] Clindamycin Phosphate 900 mg/ (Dextrose) 56 mls @ 112 mls/hr IV ONE ONE Stop: 12/03/21 11:36 Last Infusion: 12/03/21 13:09 Dose: 0 mls/hr Documented by: [id number] Admin: 12/03/21 12:05 Dose: 112 mls/hr Documented by: [id number] Ioversol (Optiray 320 100ml) 94 ml IV ONCE ONE Stop: 12/03/21 12:00 Last Admin: 12/03/21 11:59 Dose: 94 ml Documented by: [id number] Morphine Sulfate (Morphine Sulfate 4 Mg/Ml 1 Ml Carp\Vial) 4 mg IV NOW STA Stop: 12/03/21 11:08 Last Admin: 12/03/21 11:25 Dose: 4 mg Documented by: [id number] Ondansetron HCl (Ondansetron Inj 2 Mg/Ml 2 Ml Vial) 4 mg IV NOW STA Stop: 12/03/21 11:08 Last Admin: 12/03/21 11:25 Dose: 4 mg Documented by: [id number] Medical Decision Making Medical Records Attestation: I reviewed the patient's medical records. Home Medications Current Medication List: was personally reviewed by me Laboratory Data Attestation: I reviewed the patient's lab results. Result diagrams: 12/03/21 11:14 12/03/21 11:14 Lab Results 12/03/21 12/03/21 12/03/21 Range/Units 11:14 11:14 11:14 WBC 8.58 (4.8-10.8) K/uL RBC 5.28 (4.7-6.1) M/uL Hgb 16.1 (14.0-18.0) g/dL Hct 44.9 (42-52) % MCV 85.0 (80-100) fL MCH 30.5 (25-34) pg MCHC 35.9 (32-36) g/dL RDW Std Deviation 38.9 (36.4-46.3) fL RDW Coeff of Norma 12.6 (11.5-14.5) % Plt Count 211 (130-400) K/uL MPV 10.1 (7.4-10.4) fL Immature Gran % (Auto) 0.1 % Neut % (Auto) 72.6 % Lymph % (Auto) 9.8 % Armstrong % (Auto) 16.1 % Eos % (Auto) 1.2 % Baso % (Auto) 0.2 % Neut # (Auto) 6.23 (1.4-6.5) K/uL Lymph # (Auto) 0.84 L (1.2-3.4) K/uL Armstrong # (Auto) 1.38 H (0.11-0.59) K/uL Eos # (Auto) 0.10 (0-0.5) K/uL Baso # (Auto) 0.02 (0-0.2) K/uL Immature Gran # (Auto) 0.01 (0.00-0.02) K/uL ESR 21 H (0-15) mm/hr Sodium 138 (136-145) mmol/L Potassium 4.0 (3.5-5.1) mmol/L Chloride 102 (98-107) mmol/L Carbon Dioxide 29 (21-32) mmol/L Anion Gap 7 (3-11) BUN 10 (6-23) mg/dl Creatinine 0.87 (0.6-1.4) mg/dl Est Cr Clr Drug Dosing 140.3 ml/min Est GFR ( Amer) 134.2 ml/min Est GFR (Non-Af Amer) 115.8 ml/min BUN/Creatinine Ratio 11.5 (10-20) Glucose 112 H (70-99(Fasting)) mg/dl Calcium 9.5 (8.5-10.1) mg/dl Total Bilirubin 1.1 H (0.2-1.0) mg/dl AST 21 (13-39) U/L ALT 31 (7-52) U/L Alkaline Phosphatase 104 (34-104) U/L C-Reactive Protein 3.97 H (0-0.5) mg/dl Total Protein 7.2 (6.0-8.3) gm/dl Albumin 4.3 (3.4-5.0) gm/dl Globulin 2.9 (2.5-4.0) gm/dl Albumin/Globulin Ratio 1.5 (0.9-2) SARS-CoV-2, RNA, NAAT (NEGATIVE) 12/03/21 Range/Units 13:06 WBC (4.8-10.8) K/uL RBC (4.7-6.1) M/uL Hgb (14.0-18.0) g/dL Hct (42-52) % MCV (80-100) fL MCH (25-34) pg MCHC (32-36) g/dL RDW Std Deviation (36.4-46.3) fL RDW Coeff of Norma (11.5-14.5) % Plt Count (130-400) K/uL MPV (7.4-10.4) fL Immature Gran % (Auto) % Neut % (Auto) % Lymph % (Auto) % Armstrong % (Auto) % Eos % (Auto) % Baso % (Auto) % Neut # (Auto) (1.4-6.5) K/uL Lymph # (Auto) (1.2-3.4) K/uL Armstrong # (Auto) (0.11-0.59) K/uL Eos # (Auto) (0-0.5) K/uL Baso # (Auto) (0-0.2) K/uL Immature Gran # (Auto) (0.00-0.02) K/uL ESR (0-15) mm/hr Sodium (136-145) mmol/L Potassium (3.5-5.1) mmol/L Chloride (98-107) mmol/L Carbon Dioxide (21-32) mmol/L Anion Gap (3-11) BUN (6-23) mg/dl Creatinine (0.6-1.4) mg/dl Est Cr Clr Drug Dosing ml/min Est GFR ( Amer) ml/min Est GFR (Non-Af Amer) ml/min BUN/Creatinine Ratio (10-20) Glucose (70-99(Fasting)) mg/dl Calcium (8.5-10.1) mg/dl Total Bilirubin (0.2-1.0) mg/dl AST (13-39) U/L ALT (7-52) U/L Alkaline Phosphatase (34-104) U/L C-Reactive Protein (0-0.5) mg/dl Total Protein (6.0-8.3) gm/dl Albumin (3.4-5.0) gm/dl Globulin (2.5-4.0) gm/dl Albumin/Globulin Ratio (0.9-2) SARS-CoV-2, RNA, NAAT NEGATIVE (NEGATIVE) Imaging Data Attestation: I personally reviewed and interpreted this imaging study as follows: My Impression: My interpretation of a CT with IV contrast of the neck shows a significant inflammatory infection within the anterior neck without obvious fluid collection or abscess. There is mild mass-effect along the tongue base and right mouth floor without airway compromise. Radiologist report was also reviewed. Radiologist's Impression: Soft Tissue Neck CT 12/03/21 11:07 CT soft tissue neck w con HISTORY: R mandibular molar abscess w/ neck swelling TECHNIQUE: Multiaxial CT images of the neck were performed following the intravenous administration of 94 cc of Optiray 320. Sagittal coronal reformations were performed at the workstation by the radiologist. COMPARISON STUDY: None. FINDINGS: There are 5 mm periapical lucencies at ADA tendon 12. No periapical lucencies within the mandible. The parotid and submandibular glands are symmetric. There is there is fat stranding and edema adjacent to the body of the right hemimandible extending into the submandibular/sublingual soft tissues. There is mild mass effect along the tongue base and right mouth floor. However, no loculated fluid collections to suggest an abscess. Mild right submandibular and submental lymphadenopathy which is likely reactive. The edema extends along the right side of the platysma with there is associated subcutaneous edema within the right anterior neck to the level of the thyroid gland. Mild edema within the right pericardial fat space. Mild subcutaneous mucosal edema within the right side of the hypopharynx. However, the epiglottis and prevertebral soft tissues are normal in thickness. The thyroid gland enhances normally. There is also mild edema surrounding the right masseter muscle and right submandibular gland. Dental artifact partially obscures the oropharynx. The visualized brain parenchyma and orbits are unremarkable. The pterygopalatine fossa are well- maintained. The airway is patent. A few faint patchy groundglass airspace opacit ies within the upper lung zones are noted. No fractures within the visualized osseous structures. The paranasal sinuses and mastoid air cells are clear. The major cervical vessels appear patent. No evidence for a peritonsillar abscess. The adenoid and palatine tonsils are not significantly enlarged. IMPRESSION: 1. Extensive inflammatory change/edema within the right anterior neck centered at the right submandibular/perimandibular location. However, no loculated fluid collections to suggest an abscess. 2. This right-sided submandibular/sublingual inflammatory change results in mild mass effect along the tongue base and right mouth floor. Clinical follow-up recommended to exclude the possibility of a developing Satnam's angina. 3. The airway remains patent. 4. Mild right submandibular/cervical lymphadenopathy. This is likely reactive. 5. Faint patchy groundglass densities within the lung apices likely representing a viral pneumonia. ACT 112: Negative or not required by law. Electronically signed by: Titus Hartmann M.D. 12/03/2021 12:34 PM Blood Pressure Blood Pressure Findings: Normal blood pressure MDM Narrative See previous sections. The patient is at high risk for Ludewig's angina or airway compromise with this type of an infection. There does not appear to be any dental abscess at this point. I do feel that admission with IV antibiotics is warranted, with ENT/maxillofacial consultation as needed if symptoms worsen. Impression & Plan Cellulitis of neck, Dental infection Discharge Plan Visit Data Chief Complaint: Dental/Oral Stated Complaint: DENTAL PAIN WITH FACIAL SWELLING ED Provider: [facility] ED Midlevel Provider: Arjun Gould Discharge Problem: Cellulitis of neck, Dental infection Patient Disposition: Admitted As Inpatient Discharge Instructions Interventions: ED Discharge Assessment Last Done: 12/03/21 14:28
[2021-12-03 11:46] LABS: Albumin Globulin Ratio 1.5 (0.9-2); Albumin Level 4.3 gm/dl (3.4-5.0); BUN Creatinine Ratio 11.5 (10-20); Bilirubin,Total 1.1 mg/dl (0.2-1.0); C Reactive Protein 3.97 mg/dl (0-0.5); Calcium 9.5 mg/dl (8.5-10.1); Creatinine Clr Calc Pharmacy 140.3 ml/min; Est GFR (African American) 134.2 ml/min; Est GFR (Non-African American) 115.8 ml/min; Globulin 2.9 gm/dl (2.5-4.0); Total Protein 7.2 gm/dl (6.0-8.3)
[2021-12-03] MEDS ORDERED: OPTIRAY 320 100ml IV ONE (11:59)
--- NOTE | 2021-12-03 12:37 | CT Scan Report ---
CT soft tissue neck w con HISTORY: R mandibular molar abscess w/ neck swelling TECHNIQUE: Multiaxial CT images of the neck were performed following the intravenous administration o f 94 cc of Optiray 320. Sagittal coronal reformations were performed at the workstation by the radiol ogist. COMPARISON STUDY: None. FINDINGS: There are 5 mm periapical lucencies at ADA tendon 12. No periapical lucencies within the ma ndible. The parotid and submandibular glands are symmetric. There is there is fat stranding and edema adjacent to the body of the right hemimandible extending into the submandibular/sublingual soft tiss ues. There is mild mass effect along the tongue base and right mouth floor. However, no loculated flu id collections to suggest an abscess. Mild right submandibular and submental lymphadenopathy which is likely reactive. The edema extends along the right side of the platysma with there is associated sub cutaneous edema within the right anterior neck to the level of the thyroid gland. Mild edema within t he right pericardial fat space. Mild subcutaneous mucosal edema within the right side of the hypophar ynx. However, the epiglottis and prevertebral soft tissues are normal in thickness. The thyroid gland enhances normally. There is also mild edema surrounding the right masseter muscle and right submandi bular gland. Dental artifact partially obscures the oropharynx. The visualized brain parenchyma and o rbits are unremarkable. The pterygopalatine fossa are well-maintained. The airway is patent. A few fa int patchy groundglass airspace opacities within the upper lung zones are noted. No fractures within the visualized osseous structures. The paranasal sinuses and mastoid air cells are clear. The major c ervical vessels appear patent. No evidence for a peritonsillar abscess. The adenoid and palatine tons ils are not significantly enlarged. IMPRESSION: 1. Extensive inflammatory change/edema within the right anterior neck centered at the right submandib ular/perimandibular location. However, no loculated fluid collections to suggest an abscess. 2. This right-sided submandibular/sublingual inflammatory change results in mild mass effect along th e tongue base and right mouth floor. Clinical follow-up recommended to exclude the possibility of a d eveloping Satnam's angina. 3. The airway remains patent. 4. Mild right submandibular/cervical lymphadenopathy. This is likely reactive. 5. Faint patchy groundglass densities within the lung apices likely representing a viral pneumonia. ACT 112: Negative or not required by law. Electronically signed by: Titus Hartmann M.D. 12/03/2021 12:34 PM
[2021-12-03] MEDS ORDERED: MAGNESIUM HYDROXIDE SUSP 30 ML UDC PO PRN (13:45)
[2021-12-03] MEDS ORDERED: ONDANSETRON INJ 2 MG/ML 2 ML VIAL IV PRN (13:45)
--- NOTE | 2021-12-03 14:15 | History & Physical Report ---
Date of Service December 03, 2021 Assessment & Plan (1) Cellulitis of neck: Admission and Anticipated Discharge Date Admission Date: #. Right-sided deep neck space infection/right submandibular infection #. 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 Admitting labs reviewed, WBC and other labs fairly WNL except for ESR and CRP which are elevated. Patient does have history of right-sided deep neck space abscess in the past treated with antibiotic per patient. Admitting imaging reviewed, suggestive of right submandibular/perimandibular inflammatory changes and edema, concern for developing Ludewig's angina Patient received clindamycin dose in the ED. We will continue with clindamycin, add levofloxacin. Blood culture. Currently IV antibiotic. Plan to transition to oral with clinical improvement. Probiotic. ENT consult. Currently n.p.o., initiate liquid diet once clinically better. Closely monitor for airway compromise. Pain Mx w/ tylenol and morphine. Recommend follow-up with dentist as outpatient. #. History of stroke #. History of PE #. Antiphospholipid syndrome Continue with/resume home aspirin and warfarin. #. Epilepsy Continue home meds. Meds reviewed with patient. #. DVT prophylaxis: Patient on warfarin #. 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 Patient reports that he had right-sided abscess in the same location and was treated with antibiotic around 3 years ago. Patient denies any fever/chills/cough/chest pain/palpitation/belly pain/changes in bowel or bladder habit. Patient does report decreased appetite since last 2 days due to dental pain. Patient smoked tobacco for 2 years, quit 8 years ago. Patient uses marijuana vapes once a day, denies recreational drug use. Patient reports occasional drinking [once a week, 1 drink at a time]. 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 Family history significant for skin cancer in grandfather, heart problems in father side, ovarian cancer in grandmother, mom's cousin with lupus. Personal history significant for lung clot/hemoptysis, minor stroke [2016], no cancer. Full code Home Medications reviewed with the patient. Allergies Allergy/AdvReac Type Severity Reaction Status Date / Time tramadol Allergy Severe SHORTNESS Verified 09/15/18 18:20 OF BREATH Penicillins Allergy Unknown HIVES AND Verified 09/15/18 18:20 MILD WHEEZING Home Medications Medication Instructions Recorded Confirmed Type aspirin 81 mg tablet,delayed 81 mg PO QAM 06/17/18 09/15/18 History release (Aspir-Low) atorvastatin 40 mg tablet (Lipitor) 40 mg PO QAM 06/17/18 09/15/18 History fluticasone propionate 50 2 spray INTRANASAL DAILY PRN 06/17/18 09/15/18 History mcg/actuation nasal spray,suspension (Flonase Allergy Relief) hydroxychloroquine 200 mg tablet 400 mg PO HS 06/17/18 09/15/18 History (Plaquenil) lamotrigine 100 mg tablet 300 mg PO BID 06/17/18 09/15/18 History (Lamictal) levetiracetam 500 mg tablet 500 mg PO BID 06/17/18 09/15/18 History (Keppra) warfarin 7.5 mg tablet (Coumadin) 7.5 mg PO MOWEFRSA 07/09/18 09/15/18 History lamotrigine 25 mg tablet 25 mg PO DIRECTED PRN 09/15/18 09/15/18 History warfarin 7.5 mg tablet 11.25 mg PO SUTUTH 09/15/18 09/15/18 History Past Med/Surg History Medical History (Updated 12/03/21 @ 13:29 by Arjun Gould) Anticoagulated Antiphospholipid antibody with hypercoagulable state Depression Epilepsy Heart valve vegetation History of pulmonary embolism History of stroke Sofya Sacyola endocarditis Lupus Pulmonary alveolar hemorrhage Transaminitis Surgical History H/O wisdom tooth extraction Family History Mother Depression Father MATT (obstructive sleep apnea) Social History Smoking Status: Former smoker Tobacco Type: Cigarettes, Cigars and E-cigarettes / Vaping Second Hand Exposure: No; Hx Alcohol Use: Yes Alcohol type: beer Hx Substance Use: Yes Last Used Substance: Unknown Last Used Substance Other:: states smokes marijuana nightly Substance Use Type Other:: medical marijuana for seizures Preferred Language: Icelandic Communication Ability: Effective Visual Impairment: No Limitations Hearing Ability: Normal Band Tier Required: No Beliefs That Will Affect Care: None Current Living Situation: Parent Current Living Situation Comment: with parents while attending school current occupational status: student Other Information That Helps Us Care for You: No Feels Safe at Home: Yes Safety Concerns: Feels Safe At This Time Assistive Devices: None Review of Systems Review of Systems: Negative otherwise mentioned in HPI. Physical Exam Physical Exam: GENERAL: Alert and oriented x3. NAD, on RA. HEENT: No pallor, no icterus. Pupils equal, round and reactive to light. Oral mucosa moist. No erythema or swelling noted in oral cavity. NECK: No JVD, no neck masses. Rt cheek and neck swelling noted, no erythema or induration noted; tenderness Rt side noted with swelling on Rt side. HEART: S1 and S2 heard. Regular rate and rhythm. No murmur, no gallop. RESPIRATORY SYSTEM: Normal AP diameter. No accessory muscle use. No wheezing, no crackles. ABDOMEN: Soft, bowel sounds present, nontender, no distention. CENTRAL NERVOUS SYSTEM: No facial droop. Speech is clear. Obeys simple commands. Moves extremities. EXTREMITIES: No edema, no erythema seen. Results & Data Results & Data ([facility]) Vital Signs (Past 12 Hours) Vital Signs Temp Pulse Resp BP Pulse Ox 12/03/21 10:43 36.4 C L 74 18 119/77 97 Code Status & VTE Plan VTE Prophylaxis Plan VTE Prophylaxis will be ordered: Yes
[2021-12-03] MEDS: ACETAMINOPHEN 325 MG TAB PO PRN (14:53)
[2021-12-03 15:12] LABS: INR 3.7 (0.9-1.1); Prothrombin Time 36.4 Seconds (9.0-12.0)
[2021-12-03] MEDS: levoFLOXacin/D5W 750 MG/150 ML BAG IV SCH (15:51)
[2021-12-03] MEDS: ADVANCED PROBIOTIC 1250 MG CAPSULE PO SCH (15:51)
[2021-12-03] MEDS: MoRPHine SULFATE 2 MG/ML CARP IV PRN ×2 (15:54→21:25)
[2021-12-03] MEDS: CLINDAMYCIN 600 MG in DEXTROSE 5% 50 ML IV SCH (18:27)
[2021-12-03] MEDS: LACOSAMIDE 50 MG TABLET PO SCH (21:19)
[2021-12-03] MEDS: lamoTRIgine 100 MG TAB PO SCH (21:19)
[2021-12-03] MEDS: HYDROXYCHLOROQUINE SULFATE 200 MG TAB PO SCH (21:21)
[2021-12-04] MEDS: CLINDAMYCIN 600 MG in DEXTROSE 5% 50 ML IV SCH ×3 (03:07→20:26)
[2021-12-04] MEDS: MoRPHine SULFATE 2 MG/ML CARP IV PRN (03:09)
[2021-12-04 07:27] LABS: Hematocrit (blood only) 44.7 % (42-52); Hemoglobin 15.7 g/dL (14.0-18.0); Mean Corpuscular Hemoglobin 30.1 pg (25-34); Mean Corpuscular Hgb Conc 35.1 g/dL (32-36); Mean Corpuscular Volume 85.8 fL (80-100); Mean Platelet Volume 10.7 fL (7.4-10.4); Platelet Count 203 K/uL (130-400); RDW Coefficient of Variation 12.6 % (11.5-14.5); RDW Standard Deviation 39.7 fL (36.4-46.3); Red Blood Count 5.21 M/uL (4.7-6.1); White Blood Count 4.79 K/uL (4.8-10.8)
[2021-12-04 07:45] LABS: Calcium 9.2 mg/dl (8.5-10.1); Creatinine Clr Calc Pharmacy 134.8 ml/min; Est GFR (Non-African American) 114.7 ml/min; Magnesium 1.5 mg/dl (1.7-2.4); Phosphorus 2.4 mg/dl (2.5-4.9); Potassium 3.7 mmol/L (3.5-5.1)
[2021-12-04] MEDS: lamoTRIgine 100 MG TAB PO SCH ×2 (07:47→20:26)
[2021-12-04] MEDS: LACOSAMIDE 50 MG TABLET PO SCH ×2 (07:47→21:08)
[2021-12-04] MEDS: ADVANCED PROBIOTIC 1250 MG CAPSULE PO SCH (07:47)
[2021-12-04 07:48] LABS: INR 4.1 (0.9-1.1); Prothrombin Time 40.6 Seconds (9.0-12.0)
[2021-12-04] MEDS: D5W AND NSS 1,000 ML IV SCH ×2 (07:48→16:02)
[2021-12-04] MEDS: ASPIRIN 81 MG ECTAB PO SCH (07:48)
[2021-12-04] MEDS: ATORVASTATIN 40 MG TAB PO SCH (07:48)
[2021-12-04] MEDS ORDERED: HYDROmorphone INJ 0.5 MG/0.5 ML SYR IV STA (08:50)
--- NOTE | 2021-12-04 09:35 | Hospitalist Progress Note ---
Date of Service December 04, 2021 Assessment & Plan (1) Dental infection: (2) Cellulitis of neck: Plan: 31-year-old male with history of right-sided neck infection/abscess, pulmonary embolism, antiphospholipid syndrome on Coumadin, nonbacterial thrombotic endocarditis, TIA, Lupus, non-intractable epileptic spasms, presenting with dental pain, right, x3 days Possible odontogenic infection Right-sided neck cellulitis, possible Ludewig's angina There are 5 mm periapical lucencies at ADA tendon 12. No periapical lucencies within the mandible. The parotid and submandibular glands are symmetric. There is there is fat stranding and edema adjacent to the body of the right hemimandible extending into the submandibular/sublingual soft tissues. There is mild mass effect along the tongue base and right mouth floor. However, no loculated fluid collections to suggest an abscess. Mild right submandibular and submental lymphadenopathy which is likely reactive. The edema extends along the right side of the platysma with there is associated subcutaneous edema within the right anterior neck to the level of the thyroid gland. Mild edema within the right pericardial fat space. Mild subcutaneous mucosal edema within the right side of the hypopharynx. However, the epiglottis and prevertebral soft tissues are normal in thickness. The thyroid gland enhances normally. There is also mild edema surrounding the right masseter muscle and right submandibular gland. Dental artifact partially obscures the oropharynx. The visualized brain parenchyma and orbits are unremarkable. The pterygopalatine fossa are well- maintained. The airway is patent. A few faint patchy groundglass airspace opacities within the upper lung zones are noted. No fractures within the visualized osseous structures. The paranasal sinuses and mastoid air cells are clear. The major cervical vessels appear patent. No evidence for a peritonsillar abscess. The adenoid and palatine tonsils are not significantly enlarged. IMPRESSION: 1. Extensive inflammatory change/edema within the right anterior neck centered at the right submandibular/perimandibular location. However, no loculated fluid collections to suggest an abscess. 2. This right-sided submandibular/sublingual inflammatory change results in mild mass effect along the tongue base and right mouth floor. Clinical follow-up recommended to exclude the possibility of a developing Satnam's angina. 3. The airway remains patent. 4. Mild right submandibular/cervical lymphadenopathy. This is likely reactive. 5. Faint patchy groundglass densities within the lung apices likely representing a viral pneumonia. No signs of airway compromise at this time Continue clindamycin plus Levaquin day #2 Awaiting recommendation from maxillofacial surgeon, also ENT IV fluids, n.p.o. except medications As needed Dilaudid History of PE, antiphospholipid syndrome On chronic Coumadin INR 4.1 Hold Coumadin in light of possible procedures INR daily History of epilepsy Continue Lamictal, Vimpat DVT prophylaxis INR supratherapeutic Disposition Anticipate discharge to home medically stable plan of care discussed with patient in detail and at length all questions answered he is understanding, agreeable, comfortable with the plan of care Admission and Anticipated Discharge Date Admission Date: December 04, 2021 Subjective Follow-up for odontogenic infection, neck cellulitis, etc. Seen sitting up in bed, comfortable, not in distress States he feels about the same as yesterday Still has moderate to severe right jaw, right anterior neck discomfort Trismus is improving Has mild pain with swallowing, but otherwise no problems with swallowing saliva and ice chips Denies shortness of breath, fevers or chills no chest pain, dyspnea, palpitations, dizziness No other symptoms Review of Systems Review of Systems: all noted and negative except for above Physical Exam Physical Exam: General- oriented x 3, not in distress, speaks in sentences with no effort or accessory muscle use Head- atraumatic Eyes- PERRL, EOMI, anicteric ENT- oropharynx clear, very minimal trismus Mild edema on the oral mucosa right side Mild edema right lower half of the face Mild tenderness on the right anterior cervical region, no visible edema Neck- supple, no JVD, no adenopathy, no thyromegaly; carotids +2/2, no bruits appreciated Lungs- clear to auscultation bilaterally, no rales/wheezes Heart- normal rate, regular rhythm; no murmur, no gallop, no rub appreciated Abdomen- normal bowel sounds, nondistended, soft, nontender, no masses or hepatosplenomegaly Extremities- no pretibial edema, no calf tenderness; peripheral pulses intact Neuro- alert, oriented x 3; CN 2-12 grossly intact; motor 5/5 bilaterally;sensation 100% on all extremities; no other gross focal neurologic deficits Skin- warm & dry Results & Data Results & Data ([facility]) Vital Signs (Past 12 Hours) Vital Signs Temp Pulse Pulse Resp BP Pulse Ox 12/04/21 07:39 37.5 C 76 16 120/77 93 12/04/21 07:35 75 12/04/21 04:17 37.3 C 73 18 112/72 94 12/03/21 23:44 37.3 C 83 18 119/75 93 12/03/21 23:36 67 all noted and reviewed including below
[2021-12-04] MEDS: levoFLOXacin/D5W 750 MG/150 ML BAG IV SCH (14:19)
--- NOTE | 2021-12-04 15:44 | Oral/Maxillofacial Consult ---
Date of Consultation December 04, 2021 Assessment & Plan (1) Cellulitis of neck: (2) Dental infection: (3) Lupus: (4) Failing root canal: History of Present Illness Attending Physician: Lul Elizondo MD History of Present Illness Oral Maxillofacial Surgery Exam Present Complaint: I have pain/swelling/drainage from my infected lower right molar # 31 Symptoms have been ongoing for a while. I had this happen before now worse Oral Exam: Finding--acute swelling associated with # 31 distal, tender gingival tissue with deep pocket formation. # 31 had endo and infected. Swelling right floor of mouth and submandibular area Imaging: Soft tissue: floor of the mouth, tongue,posterior pharyngeal area right side very swollen Submandibular area tender, hard to swallow Oral Care: Overall oral care is good Occlusion: Class I TMJ exam: No pop, clicking, pain, good ROM, No history of TMJ injury or dysfunction Periodontal exam: Healthy gingival tissue without evidence of periodontal pathology. Noted swollen tissue distal of # 31 and into floor of the mouth Head/Neck exam: Neck is supple, FROM, Able to extend and flex neck w/o difficulty, no masses, no abnormalities, no airway issues, Treatment Plan: Set up for I and D tomorrow pending INR is at least 1.5 -- I need this level to prevent bleeding given the infected teeth and need for dissection to open up tissue spaces. Set up with general anesthesia in hospital due to complexity of the procedure I reviewed the treatment plan and consent with the patient Understanding was expressed. Time was given for questions regarding the surgery, risks and post op care. The # 31 is a failing rot canal and removal is indicated and medically necessary. The following teeth are decayed and fractured and removal is indicated BELA: # 31 with I&D right Floor of the mouth ? submandibular area Risks discussed: Bleeding,Pain,swelling,infection, dry socket, delayed healing, nerve injury to face,lips,tongue,chin area which could be permanent (rare). TMJ, jaw stiffness, change in bite (rare), ear pain (referred). Sinus problems like fistula or infection. Need to leave a small root fragment in place to avoid injury to nerve or sinus. Relationship of wisdom teeth to nerve/sinus and risk of jaw fracture. Home care reviewed: tooth brushing, rinsing, follow up care with Dr Lee. diet=[id number] dental. Discussed activity level, driving/work while on Rx pain Meds. Surgery to be set up once medically cleared and INR is in the range of 1.7-1.5 Hopefully plan I&D tomorrow in OR Consent signed. Check INR in AM Allergies Allergy/AdvReac Type Severity Reaction Status Date / Time tramadol Allergy Severe SHORTNESS Verified 09/15/18 18:20 OF BREATH Penicillins Allergy Unknown HIVES AND Verified 09/15/18 18:20 MILD WHEEZING Home Medications Medication Instructions Recorded Confirmed Type aspirin 81 mg tablet,delayed 81 mg PO QAM 06/17/18 09/15/18 History release (Aspir-Low) atorvastatin 40 mg tablet (Lipitor) 40 mg PO QAM 06/17/18 09/15/18 History fluticasone propionate 50 2 spray INTRANASAL DAILY PRN 06/17/18 09/15/18 History mcg/actuation nasal spray,suspension (Flonase Allergy Relief) hydroxychloroquine 200 mg tablet 400 mg PO HS 06/17/18 09/15/18 History (Plaquenil) lamotrigine 100 mg tablet 300 mg PO BID 06/17/18 09/15/18 History (Lamictal) levetiracetam 500 mg tablet 500 mg PO BID 06/17/18 09/15/18 History (Keppra) warfarin 7.5 mg tablet (Coumadin) 7.5 mg PO MOWEFRSA 07/09/18 09/15/18 History lamotrigine 25 mg tablet 25 mg PO DIRECTED PRN 09/15/18 09/15/18 History warfarin 7.5 mg tablet 11.25 mg PO SUTUTH 09/15/18 09/15/18 History Patient History Medical History (Updated 12/04/21 @ 15:44 by Payam Lee DMD) Anticoagulated Antiphospholipid antibody with hypercoagulable state Depression Epilepsy Heart valve vegetation History of pulmonary embolism History of stroke Libman Sacks endocarditis Lupus Pulmonary alveolar hemorrhage Transaminitis Surgical History H/O wisdom tooth extraction Family History Mother Depression Father MATT (obstructive sleep apnea) Social History Smoking Status: Former smoker Tobacco Type: Cigarettes, Cigars and E-cigarettes / Vaping Second Hand Exposure: No; Hx Alcohol Use: Yes Alcohol type: beer Hx Substance Use: Yes Last Used Substance: Unknown Last Used Substance Other:: states smokes marijuana nightly Substance Use Type Other:: medical marijuana for seizures Preferred Language: Lithuanian Communication Ability: Effective Visual Impairment: No Limitations Hearing Ability: Normal Java Core Developer Required: No Beliefs That Will Affect Care: None Current Living Situation: Parent Current Living Situation Comment: with parents while attending school current occupational status: student How many Children do You have: 0 Other Information That Helps Us Care for You: No Feels Safe at Home: Yes Safety Concerns: Feels Safe At This Time Assistive Devices: None Results & Data ([facility]) Vital Signs (Past 12 Hours) Vital Signs Temp Pulse Pulse Resp BP Pulse Ox 12/04/21 11:59 36.4 C L 77 18 128/79 91 12/04/21 07:39 37.5 C 76 16 120/77 93 12/04/21 07:35 75 12/04/21 04:17 37.3 C 73 18 112/72 94 PG Care Time/CCT Total # of Minutes Spent Total Time Spent with Patient: Total time spent is greater than 50% in coordination of care (as documented) at patient's floor/unit and/or counseling patient: Coding Level of Care Code 90250 Inpt Consult Level 3 Diagnoses Cellulitis of neck L03.221 Dental infection K04.7 Lupus M32.9 Failing root canal M27.59
[2021-12-04] MEDS: MAGNESIUM SULFATE / D5W 1 GM/100 ML BAG IV SCH ×2 (15:59→17:59)
[2021-12-04] MEDS: POT PHOSPHATE MONOBASIC W/ SOD TAB PO SCH ×2 (15:59→20:27)
[2021-12-04] MEDS ORDERED: WARFARIN SOD 7.5 MG TAB PO SCH (16:00)
[2021-12-04] MEDS: HYDROmorphone INJ 0.5 MG/0.5 ML SYR IV PRN ×2 (17:06→23:02)
[2021-12-04] MEDS ORDERED: PHYTONADIONE 5 MG TAB PO STA (17:54)
[2021-12-04] MEDS ORDERED: SODIUM CHLORIDE 0.9% 250 ML IV PRN (17:57)
[2021-12-04] MEDS: HYDROXYCHLOROQUINE SULFATE 200 MG TAB PO SCH (20:26)
[2021-12-04] MEDS: ACETAMINOPHEN 325 MG TAB PO PRN (21:09)
[2021-12-05] MEDS: CLINDAMYCIN 600 MG in DEXTROSE 5% 50 ML IV SCH ×3 (02:28→19:58)
[2021-12-05] MEDS: D5W AND NSS 1,000 ML IV SCH ×2 (05:26→17:00)
[2021-12-05] MEDS: ACETAMINOPHEN 325 MG TAB PO PRN ×2 (05:26→13:03)
[2021-12-05 06:33] LABS: Basophils # (auto) 0.02 K/uL (0-0.2); Basophils % (auto) 0.4 %; Eosinophils # (auto) 0.11 K/uL (0-0.5); Hematocrit (blood only) 42.8 % (42-52); Hemoglobin 15.1 g/dL (14.0-18.0); Lymphocytes # (auto) 0.95 K/uL (1.2-3.4); Lymphocytes % (auto) 17.3 %; Mean Corpuscular Hemoglobin 30.4 pg (25-34); Mean Corpuscular Hgb Conc 35.3 g/dL (32-36); Mean Corpuscular Volume 86.3 fL (80-100); Monocytes # (auto) 0.78 K/uL (0.11-0.59); Monocytes % (auto) 14.2 %; Neutrophils # (auto) 3.63 K/uL (1.4-6.5); Neutrophils % (auto) 66.1 %; Platelet Count 205 K/uL (130-400); RDW Coefficient of Variation 12.5 % (11.5-14.5); RDW Standard Deviation 39.7 fL (36.4-46.3); Red Blood Count 4.96 M/uL (4.7-6.1); White Blood Count 5.49 K/uL (4.8-10.8)
[2021-12-05 06:49] LABS: INR 1.8 (0.9-1.1)
[2021-12-05 06:59] LABS: BUN Creatinine Ratio 8.8 (10-20); Calcium 8.9 mg/dl (8.5-10.1); Creatinine Clr Calc Pharmacy 131.7 ml/min; Est GFR (African American) 130.6 ml/min; Est GFR (Non-African American) 112.7 ml/min; Magnesium 1.8 mg/dl (1.7-2.4); Phosphorus 2.7 mg/dl (2.5-4.9); Potassium 3.7 mmol/L (3.5-5.1)
[2021-12-05] MEDS: HYDROmorphone INJ 0.5 MG/0.5 ML SYR IV PRN ×2 (08:05→18:54)
[2021-12-05] MEDS: lamoTRIgine 100 MG TAB PO SCH ×2 (08:50→21:31)
[2021-12-05] MEDS: LACOSAMIDE 50 MG TABLET PO SCH ×2 (08:50→21:32)
[2021-12-05] MEDS: POT PHOSPHATE MONOBASIC W/ SOD TAB PO SCH ×4 (08:50→21:32)
[2021-12-05] MEDS: ADVANCED PROBIOTIC 1250 MG CAPSULE PO SCH (08:51)
[2021-12-05] MEDS: ASPIRIN 81 MG ECTAB PO SCH (08:51)
[2021-12-05] MEDS: ATORVASTATIN 40 MG TAB PO SCH (08:51)
[2021-12-05 11:54] LABS: INR 1.5 (0.9-1.1); Prothrombin Time 15.6 Seconds (9.0-12.0)
--- NOTE | 2021-12-05 13:35 | Hospitalist Progress Note ---
Date of Service December 05, 2021 Assessment & Plan (1) Dental infection: (2) Cellulitis of neck: Plan: 31-year-old male with history of right-sided neck infection/abscess, pulmonary embolism, antiphospholipid syndrome on Coumadin, nonbacterial thrombotic endocarditis, TIA, Lupus, non-intractable epileptic spasms, presenting with dental pain, right, x3 days Possible odontogenic infection Right-sided neck cellulitis, possible Satnam's angina There are 5 mm periapical lucencies at ADA tendon 12. No periapical lucencies within the mandible. The parotid and submandibular glands are symmetric. There is there is fat stranding and edema adjacent to the body of the right hemimandible extending into the submandibular/sublingual soft tissues. There is mild mass effect along the tongue base and right mouth floor. However, no loculated fluid collections to suggest an abscess. Mild right submandibular and submental lymphadenopathy which is likely reactive. The edema extends along the right side of the platysma with there is associated subcutaneous edema within the right anterior neck to the level of the thyroid gland. Mild edema within the right pericardial fat space. Mild subcutaneous mucosal edema within the right side of the hypopharynx. However, the epiglottis and prevertebral soft tissues are normal in thickness. The thyroid gland enhances normally. There is also mild edema surrounding the right masseter muscle and right submandibular gland. Dental artifact partially obscures the oropharynx. The visualized brain parenchyma and orbits are unremarkable. The pterygopalatine fossa are well- maintained. The airway is patent. A few faint patchy groundglass airspace opacities within the upper lung zones are noted. No fractures within the visualized osseous structures. The paranasal sinuses and mastoid air cells are clear. The major cervical vessels appear patent. No evidence for a peritonsillar abscess. The adenoid and palatine tonsils are not significantly enlarged. IMPRESSION: 1. Extensive inflammatory change/edema within the right anterior neck centered at the right submandibular/perimandibular location. However, no loculated fluid collections to suggest an abscess. 2. This right-sided submandibular/sublingual inflammatory change results in mild mass effect along the tongue base and right mouth floor. Clinical follow-up recommended to exclude the possibility of a developing Satnam's angina. 3. The airway remains patent. 4. Mild right submandibular/cervical lymphadenopathy. This is likely reactive. 5. Faint patchy groundglass densities within the lung apices likely representing a viral pneumonia. No signs of airway compromise at this time Continue clindamycin plus Levaquin day #3 Awaiting recommendation from maxillofacial surgeon IV fluids, n.p.o. except medications-advance diet per OMFS As needed Dilaudid/oral pain medication preferred for better control History of PE, antiphospholipid syndrome On chronic Coumadin INR reversed wtih vitamin K, now subtherapeutic. Plan to bridge with low dose heparin without bolus as bridge to coumadin History of epilepsy: chronic, stable. Continue Lamictal, Vimpat per home regimen. DVT: coumadin Disposition Anticipate discharge to home medically stable Rad[facility] DO [facility] Admission and Anticipated Discharge Date Admission Date: December 04, 2021 Subjective 31 yo M presents with infected lower right molar. Underwent I&D of infected molar today Doing well from a pain standpoint and tolerating some ice cream Denies SOB or other issues We discussed bridging is anticoagulation once cleared for this by Dr. Lee Review of Systems Review of Systems: All systems were reviewed and negative except as indicated above. Physical Exam Physical Exam: CONSTITUTIONAL: WNWD, vitals as above, generally well- appearing, NAD EYES: normal conjunctivae, anicteric sclerae ENT: swelling of cheeks post op, no LAD, some right submandibular tenderness to palpation (R molar op site), no evidence of bleeding or bruising NECK: trachea midline RESPIRATORY: clear to auscultation bilaterally, no crackles, rales or wheezes, normal respiratory effort CARDIOVASCULAR: regular rate and rhythm, S1 and 2 heard without murmurs, gallops or rubs, no JVD, no peripheral edema CHEST: inspection of chest was normal GASTROINTESTINAL: soft, nontender, ND, no guarding MUSCULOSKELETAL: strength 5/5 throughout, head is normocephalic and atraumatic, neck supple SKIN: warm and dry, NEUROLOGIC: CN 2-12 grossly intact, normal cognition, normal speech, no tremor PSYCHIATRIC: alert cooperative and oriented to person, place and time. Euthymic mood, makes good eye contact, language grossly intact, recent and remote memory grossly intact. Results & Data Results & Data ([facility]) Vital Signs (Past 12 Hours) Vital Signs Temp Pulse Pulse Resp BP Pulse Ox 12/05/21 12:21 36.3 C L 85 16 123/77 97 12/05/21 08:21 37.2 C 68 18 116/68 95 12/05/21 07:43 70 12/05/21 02:49 36.9 C 66 18 115/75 94 Laboratory Results Short CBC 12/05/21 Range/Units 06:09 WBC 5.49 (4.8-10.8) K/uL Hgb 15.1 (14.0-18.0) g/dL Hct 42.8 (42-52) % Plt Count 205 (130-400) K/uL BMP 12/05/21 06:09 Sodium 138 Potassium 3.7 Chloride 104 Carbon Dioxide 29 BUN 8 Creatinine 0.91 Glucose 106 H Calcium 8.9 Medications Administered Current Inpatient Medications Acetaminophen (Acetaminophen 325 Mg Tab) 650 mg PO Q4H PRN PRN Reason: Pain or Fever Stop: 01/02/22 13:44 Last Admin: 12/05/21 13:03 Dose: 650 mg Documented by: Aspirin (Aspirin 81 Mg Ectab) [facility] Stop: 01/03/22 08:59 Last Admin: 12/05/21 08:51 Dose: 81 mg Documented by: Atorvastatin Calcium (Atorvastatin 40 Mg Tab) 40 mg PO QAM [facility] Stop: 01/03/22 08:59 Last Admin: 12/05/21 08:51 Dose: 40 mg Documented by: Hydromorphone HCl (Hydromorphone Inj 0.5 Mg/0.5 Ml Syr) 0.5 mg IV Q6H PRN PRN Reason: MODERATE-SEVERE PAIN Stop: 12/18/21 08:49 Last Admin: 12/05/21 08:05 Dose: 0.5 mg Documented by: Hydroxychloroquine Sulfate (Hydroxychloroquine Sulfate 200 Mg Tab) 400 mg PO HS [facility] Stop: 01/02/22 20:59 Last Admin: 12/04/21 20:26 Dose: 400 mg Documented by: Clindamycin Phosphate 600 mg/ (Dextrose) 54 mls @ 100 mls/hr IV Q8H NERISSA Stop: 12/13/21 18:59 Last Infusion: 12/05/21 10:42 Dose: Infused Documented by: Levofloxacin/Dextrose (Levaquin/D5w) 750 mg in 150 mls @ 100 mls/hr IV Q24H NERISSA Stop: 12/13/21 14:59 Last Infusion: 12/04/21 15:53 Dose: Infused Documented by: Dextrose/Sodium Chloride (D5w And Nss) 1,000 mls @ 100 mls/hr IV .Q10H [facility] Stop: 01/03/22 07:29 Last Admin: 12/05/21 05:26 Dose: 100 mls/hr Documented by: Lacosamide (Lacosamide 50 Mg Tablet) 50 mg PO BID [facility] Stop: 01/02/22 20:59 Last Admin: 12/05/21 08:50 Dose: 50 mg Documented by: Lactobacillus Acidophilus (Advanced Probiotic 1250 Mg Capsule) 2 cap PO DAILY [facility] Stop: 01/02/22 13:59 Last Admin: 12/05/21 08:51 Dose: 2 cap Documented by: Lamotrigine (Lamotrigine 100 Mg Tab) 300 mg PO BID [facility] Stop: 01/02/22 20:59 Last Admin: 12/05/21 08:50 Dose: 300 mg Documented by: Magnesium Hydroxide (Magnesium Hydroxide Susp 30 Ml Udc) 30 ml PO Q12H PRN PRN Reason: Constipation Stop: 01/02/22 13:44 Ondansetron HCl (Ondansetron Inj 2 Mg/Ml 2 Ml Vial) 4 mg IV Q6H PRN PRN Reason: Nausea Stop: 01/02/22 13:44 Potassium Phosphate (Pot Phosphate Monobasic W/ Sod Tab) 1 tab PO QID [facility] Stop: 01/03/22 16:59 Last Admin: 12/05/21 13:01 Dose: 1 tab Documented by: Warfarin Sodium (Warfarin Sod 1.25 Mg Tab) 1.25 mg PO SuTuTh@1600 [facility]; Protocol Stop: 01/04/22 15:59 Warfarin Sodium (Warfarin Sod 7.5 Mg Tab) 7.5 mg PO MoWeFrSa@1600 NERISSA Stop: 01/03/22 15:59 Warfarin Sodium (Warfarin Sod 10 Mg Tab) 10 mg PO SuTuTh@1600 [facility]; Protocol Stop: 01/04/22 15:59
--- NOTE | 2021-12-05 13:54 | History & Physical Bridge Note ---
Date of Service December 05, 2021 History & Physical Bridge Note I have examined the patient, reviewed the History & Physical and in the interval since the performance of the History & Physical I have noted the following changes of clinical significance: no changes noted OK for I and D right floor of mouth infection with extension into right submandibular area Plan Intra /Extraoral I&D with extraction of # 31 INR is now 1.5 OK for procedure will hold anticoagulant until I evaluate post op tomorrow.
[2021-12-05] MEDS ORDERED: CHLORHEXIDINE GLUCONATE 0.12% 480 ML ONE (14:14)
[2021-12-05] MEDS ORDERED: BUPIVACAINE/EPINEPHRINE 0.5% 1:200,000 1.8 ML CARP ONE (14:14)
[2021-12-05] MEDS ORDERED: LIDOCAINE/EPINEPHRINE 1.7 ML CTR ONE (14:14)
[2021-12-05] MEDS ORDERED: LIDOCAINE 2% 2 ML VIAL/AMP(20MG/ML) INFIL ONE (14:20)
[2021-12-05] MEDS ORDERED: fentaNYL citrate 100 MCG/2 ML VIAL ONE (14:20)
[2021-12-05] MEDS ORDERED: ONDANSETRON INJ 2 MG/ML 2 ML VIAL ONE (14:20)
[2021-12-05] MEDS ORDERED: MIDAZOLAM HCL 1 MG/ML 2ML VIAL ONE (14:20)
[2021-12-05] MEDS ORDERED: PROPOFOL IV EMULSION 10 MG/ML 20 ML VIAL IV ONE (14:20)
[2021-12-05] MEDS ORDERED: DEXAMETHASONE SOD INJ 4 MG/ML VIAL ONE (14:20)
[2021-12-05] MEDS ORDERED: ATROPINE SULFATE 0.1 MG/ML 10ML SYR IV PRN (14:23)
[2021-12-05] MEDS ORDERED: ePHEDrine sulfate 50 MG/ML AMP IV PRN (14:23)
[2021-12-05] MEDS ORDERED: fentaNYL citrate 100 MCG/2 ML VIAL IV PRN (14:23)
[2021-12-05] MEDS ORDERED: ONDANSETRON INJ 2 MG/ML 2 ML VIAL IV PRN (14:23)
[2021-12-05] MEDS ORDERED: HYDROmorphone INJ 2 MG/ML SYR/VIAL IV PRN (14:23)
--- NOTE | 2021-12-05 14:23 | Anesthesiology Consultation ---
Date of Service December 05, 2021 Assessment & Plan ASA ASA3 Proposed Anesthesia Anesthesia Type: General Risk / Benefits Reviewed With: PT / POA / Parent / Guardian, Accepts Plan and Informed Consent Obtained History Surgery Operation Date: 12/05/21 08:10 Proposed Procedures p Right Side Incision and Drainage, - Payam Lee DMD s Extraction of Tooth #31 - Payam Lee DMD Height/Weight Height: 5 ft 8 in Weight: 93.5 kg Allergies Allergy/AdvReac Type Severity Reaction Status Date / Time tramadol Allergy Severe SHORTNESS Verified 09/15/18 18:20 OF BREATH Penicillins Allergy Unknown HIVES AND Verified 09/15/18 18:20 MILD WHEEZING Medications Home Medications Medication Instructions Recorded Confirmed Last Taken aspirin 81 mg tablet,delayed 81 mg PO QAM 06/17/18 09/15/18 09/15/18 release (Aspir-Low) atorvastatin 40 mg tablet (Lipitor) 40 mg PO QAM 06/17/18 09/15/18 09/15/18 fluticasone propionate 50 2 spray INTRANASAL DAILY PRN 06/17/18 09/15/18 Unknown mcg/actuation nasal spray,suspension (Flonase Allergy Relief) hydroxychloroquine 200 mg tablet 400 mg PO HS 06/17/18 09/15/18 09/14/18 (Plaquenil) lamotrigine 100 mg tablet 300 mg PO BID 06/17/18 09/15/18 09/15/18 (Lamictal) AM DOSE levetiracetam 500 mg tablet 500 mg PO BID 06/17/18 09/15/18 09/15/18 (Keppra) AM DOSE warfarin 7.5 mg tablet (Coumadin) 7.5 mg PO MOWEFRSA 07/09/18 09/15/18 Unknown lamotrigine 25 mg tablet 25 mg PO DIRECTED PRN 09/15/18 09/15/18 Unknown warfarin 7.5 mg tablet 11.25 mg PO SUTUTH 09/15/18 09/15/18 09/14/18 Active Medications Generic Name Dose Route Start Last Admin Trade Name Freq PRN Reason Stop Dose Admin Acetaminophen 650 mg 12/03/21 13:45 12/05/21 13:03 Acetaminophen 325 Mg Tab PO 01/02/22 13:44 650 mg Q4H PRN Administration Pain or Fever Aspirin 81 mg 12/04/21 09:00 12/05/21 08:51 Aspirin 81 Mg Ectab PO 01/03/22 08:59 81 mg QAM NERISSA Administration Atorvastatin Calcium 40 mg 12/04/21 09:00 12/05/21 08:51 Atorvastatin 40 Mg Tab PO 01/03/22 08:59 40 mg QAM NERISSA Administration Hydromorphone HCl 0.5 mg 12/04/21 08:50 12/05/21 08:05 Hydromorphone Inj 0.5 Mg/0.5 Ml Syr IV 12/18/21 08:49 0.5 mg Q6H PRN Administration MODERATE-SEVERE PAIN Hydroxychloroquine Sulfate 400 mg 12/03/21 21:00 12/04/21 20:26 Hydroxychloroquine Sulfate 200 Mg Tab PO 01/02/22 20:59 400 mg HS NERISSA Administration Clindamycin Phosphate 600 mg/ 54 mls @ 100 mls/hr 12/03/21 19:00 12/05/21 10:42 Dextrose IV 12/13/21 18:59 Infused Q8H NERISSA Infusion Levofloxacin/Dextrose 750 mg in 150 mls @ 100 mls/hr 12/03/21 15:00 12/04/21 15:53 Levaquin/D5w IV 12/13/21 14:59 Infused Q24H NERISSA Infusion Dextrose/Sodium Chloride 1,000 mls @ 100 mls/hr 12/04/21 07:30 12/05/21 05:26 D5w And Nss IV 01/03/22 07:29 100 mls/hr .Q10H NERISSA Administration Lacosamide 50 mg 12/03/21 21:00 12/05/21 08:50 Lacosamide 50 Mg Tablet PO 01/02/22 20:59 50 mg BID NERISSA Administration Lactobacillus Acidophilus 2 cap 12/03/21 14:00 12/05/21 08:51 Advanced Probiotic 1250 Mg Capsule PO 01/02/22 13:59 2 cap DAILY NERISSA Administration Lamotrigine 300 mg 12/03/21 21:00 12/05/21 08:50 Lamotrigine 100 Mg Tab PO 01/02/22 20:59 300 mg BID NERISSA Administration Potassium Phosphate 1 tab 12/04/21 17:00 12/05/21 13:01 Pot Phosphate Monobasic W/ Sod Tab PO 01/03/22 16:59 1 tab QID NERISSA Administration NPO Date Last Intake of Fluids: 12/04/21 Time Last Intake of Fluids: 23:55 Last Intake of Fluids Comment: sip with med 1303 Date Last Intake of Solids: 12/04/21 Time Last Intake of Solids: 18:00 Past Medical History Medical History (Updated 12/04/21 @ 15:44 by Payam Lee DMD) Anticoagulated Antiphospholipid antibody with hypercoagulable state Depression Epilepsy Heart valve vegetation History of pulmonary embolism History of stroke Libman Sacks endocarditis Lupus Pulmonary alveolar hemorrhage Transaminitis Exercise / Class Metabolic Activity II 4-5 Yardwork/Stairs/Walk up hill Past Family History Family History Mother Depression Father MATT (obstructive sleep apnea) Past Surgical History Surgical History H/O wisdom tooth extraction Past Anesthesia History No Hx of Anesthesia Complications and No Family Hx of Anesthesia Complications History of PONV No Hx of PONV and No Hx of Motion Sickness Social History Smoking Status: Former smoker Hx Alcohol Use: Yes Alcohol type: beer alcohol intake frequency: 0-2 drinks per day Hx Substance Use: Yes substance use type: marijuana Substance Use Type Other:: medical marijuana for seizures Last Used Substance: Unknown Last Used Substance Other:: states smokes marijuana nightly Review of Systems denies fever/cough/ colds/ chest pain/ SOB/ MATT denies MATT Physical Exam Vital Signs Last Vital Signs Temp 37.2 C 12/05/21 13:34 Pulse 74 12/05/21 13:34 Resp 18 12/05/21 13:34 BP 147/79 H 12/05/21 13:34 Pulse Ox 97 12/05/21 13:34 ENMT Mouth: no TMJ abnormality and no dentition abnormality Thyromental Distance: > or= 3.5 Finger Breadths Mallampati Class: II Neck neck extension not limited Respiratory normal respiratory effort; no respiratory distress Auscultation: lungs clear to auscultation bilaterally Cardiovascular Rate/Rhythm: regular rate and regular rhythm Neurologic moves all extremities Psychiatric Orientation: alert and oriented x 3 Testing Laboratory Results 12/05/21 06:09 12/05/21 06:09 PT 15.6 Seconds (9.0-12.0) H 12/05/21 11:38 INR 1.5 (0.9-1.1) H 12/05/21 11:38 12/03/21 15:59 Aerobic Blood Culture - Preliminary Blood No growth in Aerobic bottle after 24 hours. Anaerobic Blood Culture - Final 12/03/21 15:50 Aerobic Blood Culture - Preliminary Blood No growth in Aerobic bottle after 24 hours. Anaerobic Blood Culture - Preliminary No growth in Anaerobic bottle after 24 hours.
[2021-12-05] MEDS: levoFLOXacin/D5W 750 MG/150 ML BAG IV SCH (14:32)
--- NOTE | 2021-12-05 15:33 | Operative Report ---
PG Post Operative Report Pre & Post Diagnosis Operation Date: 12/05/21 08:10 Pre-Op Diagnosis: (1) Cellulitis of neck: (2) Dental infection: (3) Lupus: (4) Failing root canal Post-Op Diagnosis: (1) Cellulitis of neck: (2) Dental infection: (3) Lupus: (4) Failing root canal I identified the patient and participated in the time-out.: Yes Procedure Operation Date: 12/05/21 08:10 Actual Procedures p Incision and Drainage of Right Trinity of Mouth/Submandibular Area(Right) - Payam Lee DMD s Infection and Extraction of Tooth #31(Right) - Payam Lee DMD Surgeon Payam Lee DMD Special Crimes Investigator none Estimated Blood Loss 5 Findings Consistent with Post-Op Diagnosis Acute infection right floor of the mouth Specimens I and D Drains None Anesthesia Type General Indications gross swelling right floor of mouth/sublinguale space Description of Procedure Actual Procedures CPT 08832 K12.2----Incision and Drainage right floor of mouth abscess D7210 surgical extraction of abscessed tooth # 31 p Incision and Drainage Sublingual and floor of the mouth Abscess; Removal of Tooth #31(Not Applicable) - Payam Lee DMD Once cleared for surgery general anesthesia was achieved, the eyes were protected by the anesthesia dept criteria. A time out was take for patient ID, antibiotics, equipment and position verification once all agreed the procedure began. Local anesthesia using Marcaine with a vasoconstrictor ( 1.8 ml per site) given into right inferior alveolar nerve A throat pack was placed after the oral cavity was irrigated with saline. Once a surgical level of anesthesia was obtained and the local anesthesia was given time for the blocks the surgery was started. I turned my attention to the infection which was located in the floor of the mouth and submental area. The tongue was elevated and there was also swelling associated with tooth # 31 ( see CT scan report) Incision and Drainage (CPT 06698 K12.2) Using an electrosurgery needle an incision was made medial to the alveolar ridge and lateral to the duct of the submandibular gland. Once the incision was made a lot of pus extruded from the site. This drainage was cultured for anaerobic and aerobic bacteria. A curved hemostat was carefully placed into the infected space along the medial side of the lower jaw and into the submental/ submandibular space. Some further drainage was now allowed to escape. I palpated the chin and submental area and no further drainage was expressed. The area was irrigated with at least 100 ml of NS solution. I now turned my attention to remove the # 31 tooth. Lower # 31 (D7210 surgical extraction of abscessed tooth) The full thick Muco-periosteal flap was made on the facial aspect from # 28-32 . The flap was reflected to expose the the subperiosteal space the bone adjacent to # 31. The rongeur was used to remove bone, the tooth was removed with a 301 elevator, the mental nerve was intact, there was a large amount of granulation tissue on the apex and some more pus that was expressed. There was a communication between the socket and the lingular plate which caused the floor of the mouth abscess and submandibular abscess. The flap was closed with a few 2-0 chromic sutures. 2 small pieces of surgical were placed into the sockets. When the I&D was completed I inspected the sites to insure all bleeding was controlled. I removed the throat pack and suctioned the throat. A gauze pressure dressings was placed. All instrument and sponge count was correct. the patient was allowed to awake from the anesthesia. Once full awake the anesthesia tube was removed and the patient was taken to the recovery room with all vital sign stable. The patient tolerated the surgery very well. I will follow the patient in my office, Rx and instructions will be given upon discharge. CPT 33459 K12.2----Incision and Drainage right floor of mouth abscess D7210 surgical extraction of abscessed tooth # 31 I attest to the content of the Intraoperative Record and any orders documented therein. Any exceptions are noted below.
[2021-12-05] MEDS ORDERED: NEOSTIGMINE METHYLSULFATE 1 MG/ML 10ML VIAL ONE (15:41)
[2021-12-05] MEDS ORDERED: GLYCOPYRROLATE 0.2 MG/ML VIAL ONE (15:41)
--- NOTE | 2021-12-05 15:55 | Anesthesiology Progress Note ---
Date of Service December 05, 2021 Anesthesia Post Procedure Vital Signs Vital Signs: Temp Pulse Pulse Pulse Resp BP Pulse Ox 12/05/21 15:40 79 17 128/71 100 12/05/21 15:31 36.0 C L 94 H 14 128/71 100 12/05/21 13:34 37.2 C 74 18 147/79 H 97 12/05/21 12:21 36.3 C L 85 16 123/77 97 12/05/21 08:21 37.2 C 68 18 116/68 95 12/05/21 07:43 70 12/05/21 02:49 36.9 C 66 18 115/75 94 12/05/21 00:14 78 12/04/21 23:26 37.3 C 74 18 126/79 95 12/04/21 19:14 36.9 C 74 18 130/77 94 12/04/21 16:08 74 Pain Intensity Right Neck: Pain Intensity: 3 Transfer of Care Handoff Completed per policy Notes Mental Status: alert / awake / arousable and participated in evaluation Patient Amnestic to Procedure: Yes Nausea / Vomiting: adequately controlled Pain: adequately controlled Airway Patency, RR, SpO2: stable & adequate BP & HR: stable & adequate Hydration State: stable & adequate Anesthetic Complications: no major complications apparent and Pt Satisfied with anesthetic care
[2021-12-05] MEDS ORDERED: WARFARIN SOD 1.25 MG TAB PO SCH (16:00)
[2021-12-05] MEDS ORDERED: WARFARIN SOD 10 MG TAB PO SCH (16:00)
[2021-12-05] MEDS: HYDROXYCHLOROQUINE SULFATE 200 MG TAB PO SCH (21:33)
[2021-12-06] MEDS: ACETAMINOPHEN 325 MG TAB PO PRN ×2 (00:15→08:40)
[2021-12-06] MEDS: HYDROmorphone INJ 0.5 MG/0.5 ML SYR IV PRN ×3 (02:02→15:34)
[2021-12-06] MEDS: CLINDAMYCIN 600 MG in DEXTROSE 5% 50 ML IV SCH ×3 (02:06→19:58)
[2021-12-06] MEDS: D5W AND NSS 1,000 ML IV SCH (03:13)
[2021-12-06 05:50] LABS: Basophils # (auto) 0.01 K/uL (0-0.2); Basophils % (auto) 0.2 %; Eosinophils # (auto) 0.01 K/uL (0-0.5); Eosinophils % (auto) 0.2 %; Hematocrit (blood only) 40.1 % (42-52); Hemoglobin 13.9 g/dL (14.0-18.0); Immature Granulocytes # (auto) 0.02 K/uL (0.00-0.02); Immature Granulocytes % (auto) 0.3 %; Lymphocytes # (auto) 0.72 K/uL (1.2-3.4); Lymphocytes % (auto) 11.8 %; Mean Corpuscular Hgb Conc 34.7 g/dL (32-36); Mean Corpuscular Volume 86.6 fL (80-100); Mean Platelet Volume 9.8 fL (7.4-10.4); Monocytes # (auto) 0.66 K/uL (0.11-0.59); Monocytes % (auto) 10.8 %; Neutrophils # (auto) 4.69 K/uL (1.4-6.5); Neutrophils % (auto) 76.7 %; Platelet Count 231 K/uL (130-400); RDW Coefficient of Variation 12.5 % (11.5-14.5); Red Blood Count 4.63 M/uL (4.7-6.1); White Blood Count 6.11 K/uL (4.8-10.8)
[2021-12-06 05:59] LABS: INR 1.2 (0.9-1.1); Prothrombin Time 12.6 Seconds (9.0-12.0)
[2021-12-06 06:32] LABS: BUN Creatinine Ratio 7.7 (10-20); Calcium 8.9 mg/dl (8.5-10.1); Creatinine Clr Calc Pharmacy 131.7 ml/min; Est GFR (African American) 130.6 ml/min; Est GFR (Non-African American) 112.7 ml/min; Magnesium 1.7 mg/dl (1.7-2.4); Phosphorus 4.1 mg/dl (2.5-4.9); Potassium 4.4 mmol/L (3.5-5.1)
[2021-12-06] MEDS: ADVANCED PROBIOTIC 1250 MG CAPSULE PO SCH (07:20)
[2021-12-06] MEDS: lamoTRIgine 100 MG TAB PO SCH ×2 (07:20→20:02)
[2021-12-06] MEDS ORDERED: Heparin IV Adult Wt-Based Low-Dose *NO* Bolus Protocol IV ONE (07:31)
[2021-12-06 08:20] LABS: Basophils # (auto) 0.01 K/uL (0-0.2); Basophils % (auto) 0.1 %; Eosinophils # (auto) 0.02 K/uL (0-0.5); Eosinophils % (auto) 0.3 %; Hematocrit (blood only) 41.3 % (42-52); Hemoglobin 14.6 g/dL (14.0-18.0); Immature Granulocytes # (auto) 0.02 K/uL (0.00-0.02); Immature Granulocytes % (auto) 0.3 %; Lymphocytes # (auto) 0.99 K/uL (1.2-3.4); Lymphocytes % (auto) 14.4 %; Mean Corpuscular Hemoglobin 30.3 pg (25-34); Mean Corpuscular Volume 85.7 fL (80-100); Mean Platelet Volume 9.8 fL (7.4-10.4); Monocytes # (auto) 0.75 K/uL (0.11-0.59); Monocytes % (auto) 10.9 %; Neutrophils # (auto) 5.09 K/uL (1.4-6.5); Platelet Count 254 K/uL (130-400); RDW Coefficient of Variation 12.4 % (11.5-14.5); RDW Standard Deviation 39.1 fL (36.4-46.3); Red Blood Count 4.82 M/uL (4.7-6.1); White Blood Count 6.88 K/uL (4.8-10.8)
[2021-12-06 08:28] LABS: INR 1.1 (0.9-1.1); Partial Thromboplastin Ratio 1.4; Partial Thromboplastin Time 37.2 Seconds (21.0-31.0); Prothrombin Time 12.1 Seconds (9.0-12.0)
[2021-12-06] MEDS: LACOSAMIDE 50 MG TABLET PO SCH ×2 (08:35→20:41)
[2021-12-06] MEDS: ATORVASTATIN 40 MG TAB PO SCH (08:35)
[2021-12-06] MEDS: MAGNESIUM OXIDE 400 MG TAB PO SCH ×2 (08:36→19:59)
[2021-12-06 08:40] LABS: Mean Corpuscular Hgb Conc 35.4 g/dL (32-36)
--- NOTE | 2021-12-06 08:55 | Oral/Maxillofacial Progress Nt ---
Date of Service December 06, 2021 Assessment & Plan Admission and Anticipated Discharge Date Admission Date: December 04, 2021 Subjective Post Op infection evaluation The infected area is now healing very well. Swelling is gone and the tissue is healing well No drainage is noted. Cultures pending. Infection has responded very well to the antibiotics and the I and D. I requested that the patient continue with massage, heat and wound care. At this time the area is well healed and responded well to treatment. No bleeding Discussed anticoagulant management with Dr Vieira--she will restart the Warfarin and arrange for follow up with [facility] as out patient. I reviewed oral care instruction with Adeel FREEMAN for discharge as per hospital medicine RTC as needed in 10-14 days after discharge --Adeel will call to make arrangments . Results & Data ([facility]) Vital Signs (Past 12 Hours) Vital Signs Temp Pulse Pulse Resp BP Pulse Ox 12/06/21 07:44 37.1 C 64 16 137/81 96 12/06/21 07:08 63 12/06/21 04:00 37.3 C 67 18 114/70 93 12/05/21 23:00 37.3 C 75 18 135/61 96 PG Care Time/CCT Total # of Minutes Spent Total Time Spent with Patient: Total time spent is greater than 50% in coordination of care (as documented) at patient's floor/unit and/or counseling patient: Coding Level of Care Code None
[2021-12-06] MEDS: ASPIRIN 81 MG ECTAB PO SCH (09:25)
[2021-12-06] MEDS: HEPARIN SODIUM/DEXTROSE 25,000 UNITS/500 ML BAG IV SCH (09:33)
[2021-12-06] MEDS: ACETAMINOPHEN W/CODEINE #3 1 TAB PO PRN ×2 (11:56→20:11)
[2021-12-06 12:43] LABS: Estimated Average Glucose 100 mg/dl; Hemoglobin A1C 5.1 % (4.5-5.6)
[2021-12-06 16:31] LABS: Partial Thromboplastin Ratio 1.4; Partial Thromboplastin Time 39.8 Seconds (21.0-31.0)
[2021-12-06] MEDS: HYDROXYCHLOROQUINE SULFATE 200 MG TAB PO SCH (20:01)
[2021-12-06 22:48] LABS: Partial Thromboplastin Ratio 1.6; Partial Thromboplastin Time 43.1 Seconds (21.0-31.0)
--- NOTE | 2021-12-07 00:44 | Hospitalist Progress Note ---
Date of Service December 06, 2021 Assessment & Plan (1) Dental infection: (2) Cellulitis of neck: Plan: 31-year-old male with history of right-sided neck infection/abscess, pulmonary embolism, antiphospholipid syndrome on Coumadin, nonbacterial thrombotic endocarditis, TIA, Lupus, non-intractable epileptic spasms, presenting with dental pain, right, x3 days Right-sided neck cellulitis,infected 3rd molar Post op state Doing well post operatively. Continue clindamycin for total 5-7 days of abx. Awaiting recommendation from maxillofacial surgeon IV fluids, n.p.o. except medications-advance diet per OMFS As needed Dilaudid/oral pain medication preferred for better control History of PE, antiphospholipid syndrome On chronic Coumadin INR reversed wtih vitamin K, now subtherapeutic. Plan to bridge with low dose heparin without bolus as bridge to coumadin. Change to Lovenox at discharge. History of epilepsy: chronic, stable. Continue Lamictal, Vimpat per home regimen. DVT: coumadin/heparin drip Disposition Anticipate discharge to home medically stable DO [facility] Hospitalist Admission and Anticipated Discharge Date Admission Date: December 04, 2021 Subjective 31 yo M with dental infection s/p I&D infected R molar with abscess, POD1 doing well, swelling has improved starting heparin and warfarin today no bleeding, fevers or other issues overnight tolerating PO Review of Systems Review of Systems: All systems were reviewed and negative except as indicated above. Physical Exam Physical Exam: CONSTITUTIONAL: WNWD, vitals as above, generally well- appearing, NAD EYES: normal conjunctivae, anicteric sclerae ENT: swelling of cheeks post op, no LAD, some right submandibular tenderness to palpation (R molar op site), no evidence of bleeding or bruising NECK: trachea midline RESPIRATORY: clear to auscultation bilaterally, no crackles, rales or wheezes, normal respiratory effort CARDIOVASCULAR: regular rate and rhythm, S1 and 2 heard without murmurs, gallops or rubs, no JVD, no peripheral edema CHEST: inspection of chest was normal GASTROINTESTINAL: soft, nontender, ND, no guarding MUSCULOSKELETAL: strength 5/5 throughout, head is normocephalic and atraumatic, neck supple SKIN: warm and dry, NEUROLOGIC: CN 2-12 grossly intact, normal cognition, normal speech, no tremor PSYCHIATRIC: alert cooperative and oriented to person, place and time. Euthymic mood, makes good eye contact, language grossly intact, recent and remote memory grossly intact. Results & Data Results & Data ([facility]) Vital Signs (Past 12 Hours) Vital Signs Temp Pulse Resp BP BP Pulse Ox 12/06/21 22:25 36.9 C 64 18 115/77 93 12/06/21 14:41 36.8 C 66 18 135/87 95 Laboratory Results Short CBC 12/06/21 12/06/21 Range/Units 05:30 08:02 WBC 6.11 6.88 (4.8-10.8) K/uL Hgb 13.9 L 14.6 (14.0-18.0) g/dL Hct 40.1 L 41.3 L (42-52) % Plt Count 231 254 (130-400) K/uL BMP 12/06/21 05:30 Sodium 138 Potassium 4.4 Chloride 105 Carbon Dioxide 28 BUN 7 Creatinine 0.91 Glucose 120 H Calcium 8.9 Medications Administered Current Inpatient Medications Acetaminophen (Acetaminophen 325 Mg Tab) 650 mg PO Q4H PRN PRN Reason: Pain or Fever Stop: 01/02/22 13:44 Last Admin: 12/06/21 08:40 Dose: 650 mg Documented by: Acetaminophen/Codeine Phosphate (Acetaminophen W/Codeine #3 1 Tab) 1 tab PO Q4H PRN PRN Reason: Severe Pain Stop: 01/05/22 08:57 Last Admin: 12/06/21 20:11 Dose: 1 tab Documented by: Aspirin (Aspirin 81 Mg Ectab) 81 mg PO [facility] Stop: 01/03/22 08:59 Last Admin: 12/06/21 09:25 Dose: 81 mg Documented by: Atorvastatin Calcium (Atorvastatin 40 Mg Tab) 40 mg PO [facility] Stop: 01/03/22 08:59 Last Admin: 12/06/21 08:35 Dose: 40 mg Documented by: Hydromorphone HCl (Hydromorphone Inj 0.5 Mg/0.5 Ml Syr) 0.5 mg IV Q6H PRN PRN Reason: MODERATE-SEVERE PAIN Stop: 12/18/21 08:49 Last Admin: 12/06/21 15:34 Dose: 0.5 mg Documented by: Hydroxychloroquine Sulfate (Hydroxychloroquine Sulfate 200 Mg Tab) 400 mg PO HS [facility] Stop: 01/02/22 20:59 Last Admin: 12/06/21 20:01 Dose: 400 mg Documented by: Clindamycin Phosphate 600 mg/ (Dextrose) 54 mls @ 100 mls/hr IV Q8H [facility] Stop: 12/13/21 18:59 Last Infusion: 12/06/21 20:42 Dose: Infused Documented by: Heparin Sodium/Dextrose (Heparin Sodium/Dextrose) 25,000 units in 500 mls @ 23 mls/hr IV .[id number] [facility]; Protocol Stop: 01/05/22 07:44 Last Titration: 12/06/21 23:08 Dose: 1,150 units/hr, 23 mls/hr Documented by: Lacosamide (Lacosamide 50 Mg Tablet) 50 mg PO BID [facility] Stop: 01/02/22 20:59 Last Admin: 12/06/21 20:41 Dose: 50 mg Documented by: Lactobacillus Acidophilus (Advanced Probiotic 1250 Mg Capsule) 2 cap PO DAILY [facility] Stop: 01/02/22 13:59 Last Admin: 12/06/21 07:20 Dose: 2 cap Documented by: Lamotrigine (Lamotrigine 100 Mg Tab) 300 mg PO BID [facility] Stop: 01/02/22 20:59 Last Admin: 12/06/21 20:02 Dose: 300 mg Documented by: Lorazepam (Lorazepam 2 Mg/1 Ml Vial) 0.5 mg IV Q4H PRN PRN Reason: Anxiety Stop: 01/06/22 00:30 Magnesium Hydroxide (Magnesium Hydroxide Susp 30 Ml Udc) 30 ml PO Q12H PRN PRN Reason: Constipation Stop: 01/02/22 13:44 Magnesium Oxide (Magnesium Oxide 400 Mg Tab) 400 mg PO BID [facility] Stop: 01/05/22 08:59 Last Admin: 12/06/21 19:59 Dose: 400 mg Documented by: Ondansetron HCl (Ondansetron Inj 2 Mg/Ml 2 Ml Vial) 4 mg IV Q6H PRN PRN Reason: Nausea Stop: 01/02/22 13:44 Warfarin Sodium (Warfarin Sod 7.5 Mg Tab) 7.5 mg PO [id number]@1600 [facility] Stop: 01/03/22 15:59 Last Admin: 12/06/21 16:25 Dose: 7.5 mg Documented by: Warfarin Sodium (Warfarin Sod 10 Mg Tab) 10 mg PO [id number]@1600 [facility] Stop: 01/04/22 15:59
[2021-12-07] MEDS: LORazepam 2 MG/1 ML VIAL IV PRN ×2 (01:09→11:29)
[2021-12-07] MEDS: CLINDAMYCIN 600 MG in DEXTROSE 5% 50 ML IV SCH ×2 (02:49→10:47)
[2021-12-07] MEDS: ACETAMINOPHEN W/CODEINE #3 1 TAB PO PRN ×2 (03:23→08:37)
[2021-12-07 06:40] LABS: INR 1.1 (0.9-1.1)
[2021-12-07 06:51] LABS: Basophils # (auto) 0.04 K/uL (0-0.2); Basophils % (auto) 1.1 %; Eosinophils # (auto) 0.14 K/uL (0-0.5); Hemoglobin 13.6 g/dL (14.0-18.0); Lymphocytes % (auto) 45.3 %; Mean Corpuscular Hgb Conc 34.9 g/dL (32-36); Mean Corpuscular Volume 85.9 fL (80-100); Mean Platelet Volume 9.8 fL (7.4-10.4); Monocytes # (auto) 0.42 K/uL (0.11-0.59); Monocytes % (auto) 11.9 %; Neutrophils # (auto) 1.33 K/uL (1.4-6.5); Neutrophils % (auto) 37.7 %; Platelet Count 220 K/uL (130-400); RDW Coefficient of Variation 12.6 % (11.5-14.5); RDW Standard Deviation 39.9 fL (36.4-46.3); Red Blood Count 4.54 M/uL (4.7-6.1); White Blood Count 3.53 K/uL (4.8-10.8)
[2021-12-07 07:13] LABS: BUN Creatinine Ratio 7.8 (10-20); Calcium 8.9 mg/dl (8.5-10.1); Creatinine Clr Calc Pharmacy 117.5 ml/min; Est GFR (African American) 113.8 ml/min; Est GFR (Non-African American) 98.2 ml/min; Potassium 3.7 mmol/L (3.5-5.1)
[2021-12-07] MEDS: lamoTRIgine 100 MG TAB PO SCH (08:36)
[2021-12-07] MEDS: MAGNESIUM OXIDE 400 MG TAB PO SCH (08:36)
[2021-12-07] MEDS: ADVANCED PROBIOTIC 1250 MG CAPSULE PO SCH (08:36)
[2021-12-07] MEDS: ASPIRIN 81 MG ECTAB PO SCH (08:37)
[2021-12-07] MEDS: ATORVASTATIN 40 MG TAB PO SCH (08:37)
[2021-12-07 08:41] LABS: Partial Thromboplastin Time 54.5 Seconds (21.0-31.0)
[2021-12-07] MEDS: HEPARIN SODIUM/DEXTROSE 25,000 UNITS/500 ML BAG IV SCH (09:15)
[2021-12-07] MEDS: LACOSAMIDE 50 MG TABLET PO SCH (09:16)
[2021-12-07] MEDS ORDERED: ENOXAPARIN 1 MG/KG SQ SCH (09:30)
--- NOTE | 2021-12-07 09:36 | Discharge Summary ---
Date of Service December 07, 2021 POST OP NOTE: Reviewed oral care=irrigation device given and instructed on use. 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 Patient reports that he had right-sided abscess in the same location and was treated with antibiotic around 3 years ago. Patient denies any fever/chills/cough/chest pain/palpitation/belly pain/changes in bowel or bladder habit. Patient does report decreased appetite since last 2 days due to dental pain. Patient smoked tobacco for 2 years, quit 8 years ago. Patient uses marijuana vapes once a day, denies recreational drug use. Patient reports occasional drinking [once a week, 1 drink at a time]. 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 Family history significant for skin cancer in grandfather, heart problems in father side, ovarian cancer in grandmother, mom's cousin with lupus. Personal history significant for lung clot/hemoptysis, minor stroke [2016], no cancer. Full code Home Medications reviewed with the patient. Admission Exam Per Admitting Provider GENERAL: Alert and oriented x3. NAD, on RA. HEENT: No pallor, no icterus. Pupils equal, round and reactive to light. Oral mucosa moist. No erythema or swelling noted in oral cavity. NECK: No JVD, no neck masses. Rt cheek and neck swelling noted, no erythema or induration noted; tenderness Rt side noted with swelling on Rt side. HEART: S1 and S2 heard. Regular rate and rhythm. No murmur, no gallop. RESPIRATORY SYSTEM: Normal AP diameter. No accessory muscle use. No wheezing, no crackles. ABDOMEN: Soft, bowel sounds present, nontender, no distention. CENTRAL NERVOUS SYSTEM: No facial droop. Speech is clear. Obeys simple commands. Moves extremities. EXTREMITIES: No edema, no erythema seen Principal Diagnosis Infected 3rd molar s/p incision and drainage Discharge Exam CONSTITUTIONAL: WNWD, vitals as above, generally well-appearing, NAD EYES: normal conjunctivae, anicteric sclerae ENT: swelling of cheeks post op, no LAD, some right submandibular tenderness to palpation (R molar op site), no evidence of bleeding or bruising NECK: trachea midline RESPIRATORY: clear to auscultation bilaterally, no crackles, rales or wheezes, normal respiratory effort CARDIOVASCULAR: regular rate and rhythm, S1 and 2 heard without murmurs, gallops or rubs, no JVD, no peripheral edema CHEST: inspection of chest was normal GASTROINTESTINAL: soft, nontender, ND, no guarding MUSCULOSKELETAL: strength 5/5 throughout, head is normocephalic and atraumatic, neck supple SKIN: warm and dry, NEUROLOGIC: CN 2-12 grossly intact, normal cognition, normal speech, no tremor PSYCHIATRIC: alert cooperative and oriented to person, place and time. Euthymic mood, makes good eye contact, language grossly intact, recent and remote memory grossly intact. Discharge Data Allergies Allergy/AdvReac Type Severity Reaction Status Date / Time tramadol Allergy Severe SHORTNESS Verified 09/15/18 18:20 OF BREATH Penicillins Allergy Unknown HIVES AND Verified 09/15/18 18:20 MILD WHEEZING Consultations 12/03/21 13:17 ED Decision to Admit Stat 12/04/21 07:34 Consult Oromaxillofacial Surgery Routine Procedures Performed Operation Date: 12/05/21 08:10 Actual Procedures p Incision and Drainage of Right Floor of Mouth/Submandibular Area(Right) - Payam Lee DMD s Infection and Extraction of Tooth #31(Right) - Payam Lee DMD Ordered Studies 12/03/21 11:07 CT soft tissue neck w con Stat Hospital Course (1) Dental infection: (2) Cellulitis of neck: (3) Failing root canal: (4) Lupus: (5) Antiphospholipid antibody with hypercoagulable state: (6) History of pulmonary embolism: The patient is a 31-year-old man with a history of pulmonary embolism from antiphospholipid syndrome. He is on Coumadin and baby aspirin and presented with a worsening infected third molar and right-sided neck cellulitis. O FMS was consulted and placed him on clindamycin and Levaquin subsequently performing an incision and drainage on 12/05. Prior to the procedure he was given 10 mg of oral vitamin K and his INR was 1.5 preoperatively. He did well during surgery and postoperatively. Within 12 hours of his procedure he was restarted on heparin bridge with warfarin. INR was subtherapeutic at time of discharge (1.1) and he was given Lovenox subcu twice daily to take at home until INR is back at goal. Close follow-up with his anticoagulation clinic was recommended. Postoperative instructions were given by O FMS and he should follow-up within 1 to [address] Payam Lee. Close primary care follow-up was also recommended. At time of discharge she was eating and tolerating solid food without issue and mentating and ambulating at baseline. Pain was controlled with Tylenol with codeine and plain Tylenol. Total Time Total Time Spent Total Time Spent (In Minutes): 60 Discharge Plan Discharge Items Patient Disposition: Home - Self-Care Reason For Visit: RT NECK INFECTION Discharge Diagnosis: Infected lower right second molar s/p incision and drainage Condition on Discharge: Good Activity: Resume your previous activity Lifting: Gradually increase as tolerated Bathing: No limitations Exercise/Sports: Gradually increase as tolerated Driving/Machine Use: Resume 1 day after discharge Weightbearing: Full weightbearing Non-emergency contact: Primary Care Provider and Surgeon Call non-emergency contact if: you have any medication questions, your symptoms worsen, your pain is not controlled, your pain is worsening, your pain is unusual for you, your pain is concerning for you, you have a fever, your wound has increased drainage and your wound pain has increased Follow-up/Referrals: Mukesh Boyd MD [Primary Care Provider] - (Date & Time 12/13/2021 2:40 PM Provider Mukesh Boyd MD Department [facility] ) Payam Lee DMD [Physician] - Diet: Regular Diet Texture: Easy to Chew Addtl Attending Provider Instructions: Please take all medications as instructed on discharge list below. You are being given Lovenox to take as a bridge until your INR level is between 2 and 3. Please follow-up with your anticoagulation clinic in the next few days to recheck your INR and titrate medications as needed. Continue to take your warfarin at this time. Please avoid using straws or drinking carbonated beverages for 1 week. Please ensure no more than 3000 mg of Tylenol is used within a knee 24-hour period. Please follow-up with Dr. Lee's office within the next 1 to 2 weeks by contacting his office. It is recommended that you follow-up with your primary care doctor within a week of discharge from the hospital to ensure you are still doing well and healing without issue. It was a pleasure taking care of you! Please call if you have any questions or problems. You can reach a [facility] hospitalist on duty at [facility] 24 hours a day by calling [phone]. Take care of yourself. Radha Vieira, DO [facility] ADDITIONAL ACTIVITY RECOMMENDATIONS: ORAL SURGICAL POST OP * [place] teeth after every meal. It is very important to keep your mouth clean to prevent infection. * Starting tonight rinse with the Peridex as directed then 2 x a day * it is very important to keep well hydrated, this prevents fever and possible dry socket pain SPECIAL CARE INSTRUCTIONS: *It is not uncommon that between day 2-4 that your swelling will be at its worst this is very normal, do not be alarmed. * Tomorrow start rinsing your mouth with 1/2 teaspoon salt in 8 ounces warm water. This rinse should be used every 4-6 hours. * You may experience slight nausea. To prevent this, never take your medication on an empty stomach. If nauseated, take small sips of danielle melisa until you feel better; then you may start on applesauce and toast. * Some swelling is common. It should gradually decrease within 4-5 days. * A certain amount of bleeding is to be expected. It is often possible to control mild oozing by placing folded gauze over the area and biting down for 30 minutes. If you are unable to control excessive bleeding, call Dr Lee at [phone] * You may experience some discomfort for a few days. If pain or swelling increases, Call Dr Lee * Return to the office for a follow up check up on: please call my office to set up a follow up in 2-3 weeks after discharge * office address--[address]. phone # [phone] Pending Studies at Discharge: No Stand-Alone Forms: My [facility] Medications and DC Order Prescriptions: New enoxaparin [Lovenox] 100 mg/mL syringe 90 mg subcut Q12H Qty: 10 RF: 1 acetaminophen-codeine 300-30 mg Tablet 1 tab PO Q6H PRN (Reason: severe pain (scale score 7-10)) Qty: 10 RF: 0 clindamycin HCl 150 mg capsule 450 mg PO TID Qty: 45 RF: 0 Continued atorvastatin [Lipitor] 40 mg tablet 40 mg PO QAM RF: 0 aspirin [Aspir-Low] 81 mg Tablet,Delayed Release (Dr/Ec) 81 mg PO QAM RF: 0 hydroxychloroquine [Plaquenil] 200 mg tablet 400 mg PO HS RF: 0 fluticasone propionate [Flonase Allergy Relief] 50 mcg/actuation [place],Suspension 2 spray INTRANASAL DAILY PRN (Reason: Allergy Symptoms) RF: 0 lamotrigine [Lamictal] 100 mg tablet 300 mg PO BID RF: 0 warfarin [Coumadin] 7.5 mg tablet 7.5 mg PO MOWEFRSA RF: 0 warfarin 7.5 mg tablet 11.25 mg PO SUTUTH RF: 0 lamotrigine 25 mg tablet 25 mg PO DIRECTED PRN (Reason: TO ADJUST LEVELS) RF: 0 lacosamide [Vimpat] 50 mg tablet 50 mg PO BID RF: 0 Discharge Orders: Discharge Order (Routine); Ordered 12/07/21 Ordered By: Radha Vieira Admission Data Admit Date/Time: 12/04/21 07:27 Attending Provider: Radha Vieira Admit Provider: Charles Winn Primary Care Provider: Mukesh Boyd Other Providers: Charles Winn ; Payam Lee
[2021-12-07] MEDS ORDERED: ENOXAPARIN 100 MG/1ML SYR SQ SCH (09:45)
[2021-12-07] MEDS: ACETAMINOPHEN 325 MG TAB PO PRN (10:48)
== END 2021-12-07 13:00 | disposition home or self-care (01) | DRG 137 ==
LOC: 2S 10:33 → ED 10:33 → SUATTDRO 13:46 → 2S 14:28 → SUATTDRO 12-04 07:27 → 2N 12-05 17:18
DX: Z79.01 Long term (current) use of anticoagulants; K08.59 Other unsatisfactory restoration of tooth; K12.2 Cellulitis and abscess of mouth; Z86.711 Personal history of pulmonary embolism; Z88.0 Allergy status to penicillin; Z86.73 Personal history of transient ischemic attack (TIA), and cerebral infarction without residual deficits; M27.5 Periradicular pathology associated with previous endodontic treatment; G40.909 Epilepsy, unspecified, not intractable, without status epilepticus; D68.61 Antiphospholipid syndrome; D68.62 Lupus anticoagulant syndrome; L03.221 Cellulitis of neck; Z79.82 Long term (current) use of aspirin; Z87.891 Personal history of nicotine dependence; Z88.5 Allergy status to narcotic agent

== ENCOUNTER 2024-09-30 18:22 | Inpatient (IN) ==
--- NOTE | 2024-09-30 18:50 | Emergency Department Note ---
Impression & Plan Dental abscess, Facial cellulitis, Pneumonia, Lupus (systemic lupus erythematosus) ED Provider Note CHIEF COMPLAINT: Oral infection that spread to face HISTORY OF PRESENTING ILLNESS: This 34-year-old male patient presents emergency department with his father for evaluation of a dental infection spreading to his face. The patient states that he has had a bad tooth on the left upper part of his mouth. It is now infected and spreading to the left side of his face. He has had facial swelling and pain. He denies any fevers. No discharge from the mouth. No change in his vision or hearing. He does have some pain with swallowing, but is still able to swallow. He believes that a crown fell off 4 days ago when the symptoms started. He went to [facility] today and was given a prescription for Augmentin. However, he had rapid onset of swelling to the face after his first dose of Augmentin. Denies any chest pain, shortness of breath, abdominal pain, nausea, or vomiting. The patient is on Coumadin due to history of his lupus causing blood clots. REVIEW OF SYSTEMS: See HPI for pertinent positives and pertinent negatives. ALLERGIES: Tramadol MEDICATIONS: See below PAST MEDICAL HISTORY: See below PHYSICAL EXAM: Vital Signs: Vitals are noted on the nurse's note and reviewed by myself. GENERAL: Non toxic in appearance and in no acute distress. SKIN: The patient has some mild erythema in addition to the edema to the left side of the face. The edema is all contained between the upper portion of the jaw and below the left eye. It does extend towards the nose. No obvious fluctuance noted. No significant areas of induration. The patient is tender to palpation over the edema. To the capillary reflex less than 2 seconds. HEAD: Normocephalic, atraumatic. EARS: Bilateral external auditory canals clear without tragus tenderness. Bilateral tympanic membranes pearly dickens without erythema or effusion. No mastoid tenderness bilaterally. EYES: Pupils equal round and reactive to light and accommodation. Conjunctivae without injection, sclerae without icterus. Extraocular movements intact. NOSE: Patent, turbinates inflamed with no discharge. Left-sided maxillary sinus tenderness. MOUTH: No obvious evidence for drainable abscess on exam. No discharge from the mouth. The gingiva is erythematous and edematous along the left upper molars. Mucous membranes moist. Airway patent, uvula midline. Pharynx is not erythematous and not edematous without exudate. Pharynx without postnasal drip. No evidence for peritonsillar abscess. NECK: Supple without nuchal rigidity. Mildly positive left-sided anterior cervical lymphadenopathy. No Satnam angina. HEART: Regular rate and rhythm without murmurs gallops or rubs. LUNGS: Clear to auscultation bilaterally without wheezes, rales or rhonchi. No accessory muscle use or retractions. ABDOMEN: Positive bowel sounds x 4. Normal tympanic percussion. Soft, nontender to palpation. No masses or hepatosplenomegaly. No guarding, rigidity, or rebound tenderness. No CVA tenderness. No focal RLQ or LLQ tenderness. NEURO: Patient was alert and oriented. DIFFERENTIAL DIAGNOSIS: Differential diagnosis includes dental caries, periapical abscess, facial cellulitis, facial abscess, Satnam's angina, pharyngitis, referred pain, among others. ED COURSE AND MEDICAL DECISION MAKING: HISTORY FROM INDEPENDENT HISTORIAN: Additional history obtained with the patient's father. MEDICATIONS GIVEN: 1 L normal saline solution bolus. Tylenol 1000 mg IV. Unasyn 3 g IV. Zosyn 4.5 g IV. INTERPRETATION OF LABS: I interpreted the labs with full lab results as below in the lab section of this note. Laboratory results pertinent to the emergent complaint are discussed in the MDM section below. The patient was advised to follow up with their PCP and/or specialist(s) for further outpatient monitoring and management of any abnormal results. INTERPRETATION OF IMAGING: Imaging studies were interpreted by myself and read by radiology as per the imaging section of this note. The patient was advised to follow up with their PCP and/or specialist(s) for further outpatient management of any non-emergent abnormal findings. CT scan of the soft tissue neck with IV contrast showed periodontal disease involving the left lateral incisor of the maxilla with suspected early abscess formation and extensive phlegmon in the overlying soft tissues. Patchy groundglass densities in the right upper lobe of the lung representing pneumonia. Chest x-ray showed bronchitis with right pulmonary infiltrate. CHRONIC MEDICAL/SOCIAL CONDITIONS AFFECTING CARE: The patient is immunocompromise on Plaquenil for his lupus and is on Coumadin therapy. CONSULTATIONS: Dr. Lee of maxillofacial surgery. On-call hospitalist. MDM SUMMARY: I examined the patient. The patient believes a crown fell off 4 days ago and he started with dental pain to the left upper molars. He went to [facility] today and was given a prescription for Augmentin. The patient states that he took 1 dose of Augmentin. However, he has had more sudden onset of left-sided facial swelling and pain since being seen at [facility] and he is concerned for infection. He has not had any fevers. An IV lock was placed and labs were drawn. The patient was given 1 L normal saline solution bolus, Unasyn 3 g IV, and Tylenol 1000 mg IV. White blood cell count normal at 8.79. Hemoglobin normal at 16.6. Platelet count normal at 218. INR is therapeutic at 2.7. Total bilirubin 1.2 and ALT 55 which is stable. CMP otherwise without concerning abnormalities. CT scan of the soft tissue neck with IV contrast showed periodontal disease involving the left lateral incisor of the maxilla with suspected early abscess formation and extensive phlegmon in the overlying soft tissues. Patchy groundglass densities in the right upper lobe of the lung representing pneumonia. Chest x-ray was then obtained. Chest x-ray showed bronchitis with right pulmonary infiltrate. The patient is immunocompromise from his Plaquenil for lupus. He has had progressively worsening symptoms with the cellulitis and suspected abscess from the dental infection as well as a pneumonia on CT scan imaging. Therefore, I feel the patient requires admission for IV antibiotics and further evaluation and treatment. I had a meaningful discussion about this patient with Dr. Malik who agrees with my assessment and the treatment plan. The patient was given Zosyn 4.5 g IV in addition to the Unasyn he was already given to help cover for the pneumonia in addition to the dental infection. I consulted with Dr. Lee of maxillofacial surgery who recommended IV antibiotics and he would consult tomorrow. I spoke with the on-call hospitalist who agreed to admit the patient for further evaluation and treatment. Please refer to their dictation for further details. The patient's care was transferred in stable condition. DIAGNOSIS: Dental abscess Facial cellulitis Pneumonia Lupus Past Med/Surg History Problem List (Updated 10/01/24 @ 11:18 by Payam Lee DMD) Anticoagulated on Coumadin Facial swelling Dental abscess (Acute) Antiphospholipid antibody with hypercoagulable state (Chronic) Interstitial lung disease Lupus (systemic lupus erythematosus) (Acute) Pneumonia (Acute) Facial cellulitis (Acute) DVT prophylaxis Hemoptysis Epilepsy (Chronic) Depression (Chronic) History of stroke (Chronic) Transaminitis (Chronic) History of pulmonary embolism (Chronic) Medical History Failing root canal Dental infection Cellulitis of neck Lupus Pulmonary alveolar hemorrhage Sofya Sacyola endocarditis Heart valve vegetation Antiphospholipid antibody with hypercoagulable state History of pulmonary embolism Anticoagulated Transaminitis History of stroke Depression Epilepsy Surgical History History of incision and drainage (12/05/21) p Incision and Drainage of Right Trinity of Mouth/Submandibular Area(Right) - Payam Lee DMD s Infection and Extraction of Tooth #31(Right) - Payam Lee DMD H/O wisdom tooth extraction Family History Mother Depression Father MATT (obstructive sleep apnea) Social History Smoking Status: Former smoker Tobacco Type: Cigarettes Smoking End Date: 10 years ago; Second Hand Exposure: No; Do You Dip or Chew Tobacco: No; Hx Alcohol Use: Yes Alcohol type: hard liquor Hx Substance Use: Yes Last Used Substance: Unknown Last Used Substance Other:: states smokes marijuana nightly Substance Use Type Other:: daily medical marijuana Preferred Language: Hebrew Communication Ability: Effective Visual Impairment: No Limitations Hearing Ability: Normal Wet Process Assistant Head Miller Required: No Beliefs That Will Affect Care: None Current Living Situation: Parent Current Living Situation Comment: with parents current occupational status: student How many Children do You have: 0 Feels Safe at Home: Yes Assistive Devices: None Allergies Allergies Allergy/AdvReac Type Severity Reaction Status Date / Time tramadol AdvReac Severe Seizure Verified 10/01/24 10:43 Home Meds Home Medications Medication Instructions Recorded Confirmed atorvastatin 40 mg tablet (Lipitor) 40 mg PO QAM 06/17/18 09/30/24 hydroxychloroquine 200 mg tablet 400 mg PO HS 06/17/18 09/30/24 (Plaquenil) lamotrigine 100 mg tablet 300 mg PO BID 06/17/18 09/30/24 (Lamictal) warfarin 7.5 mg tablet See Rx Instructions .Route .COMPLEX 09/15/18 09/30/24 lacosamide 50 mg tablet (Vimpat) 50 mg PO [facility] 12/07/21 09/30/24 acetaminophen 325 mg tablet 650 mg PO Q6 PRN Pain 09/30/24 09/30/24 albuterol sulfate 90 mcg/actuation 2 puff inhalation Q4 PRN DYSPNEA 09/30/24 09/30/24 aerosol inhaler OR WHEEZING amoxicillin 875 mg-potassium 1 tab PO [facility]HS 09/30/24 09/30/24 clavulanate 125 mg tablet aspirin 81 mg tablet,delayed 81 mg PO QAM 09/30/24 09/30/24 release cyclobenzaprine 10 mg tablet 10 mg PO HS PRN Muscle Spasm 09/30/24 09/30/24 fluticasone propionate 50 2 spray intranasal DAILY PRN NASAL 09/30/24 09/30/24 mcg/actuation nasal SYMPTOMS spray,suspension latanoprost 0.005 % eye drops 1 drp OPB HS 09/30/24 09/30/24 mometasone-formoterol HFA 100 2 puff inhalation [facility] 09/30/24 09/30/24 mcg-5 mcg/actuation aerosol inhaler (Dulera) Results & Data (ED) Vital Signs Vital Signs - 24 hr 09/30/24 18:25 09/30/24 18:41 09/30/24 19:36 Temperature 37.0 C Temperature Source Temporal Artery Scan Pulse Rate 78 73 74 Pulse Rate from SpO2 Sensor 74 Pulse Rhythm Regular Pulse Strength Normal Respiratory Rate 20 18 Respiratory Effort / Characteristics Non-Labored Spontaneous Respiratory Depth Normal Respiratory Pattern Regular Blood Pressure 148/86 H 147/90 H Blood Pressure Mean 106 102 Blood Pressure Position Sitting Pulse Oximetry 96 95 Oxygen Delivery Method Room Air Room Air Sepsis Recent Fever Within 48 Hours No Sepsis New/Unexplained Change in Mental Status No Sepsis Action Taken by Nursing No Action Required 09/30/24 21:30 09/30/24 22:06 09/30/24 22:41 Temperature Temperature Source Pulse Rate 70 75 74 Pulse Rate from SpO2 Sensor 70 74 Pulse Rhythm Pulse Strength Respiratory Rate 19 16 Respiratory Effort / Characteristics Respiratory Depth Respiratory Pattern Blood Pressure 132/91 163/97 H Blood Pressure Mean 100 119 Blood Pressure Position Pulse Oximetry 96 97 Oxygen Delivery Method Room Air Sepsis Recent Fever Within 48 Hours Sepsis New/Unexplained Change in Mental Status Sepsis Action Taken by Nursing Laboratory Data 10/01/24 05:26 10/01/24 05:26 Lab Results 09/30/24 09/30/24 Range/Units 19:07 22:15 WBC 8.79 (4.8-10.8) K/ul RBC 5.69 (4.70-6.10) M/uL Hgb 16.6 (14.0-18.0) g/dl Hct 46.9 (42.0-52.0) % MCV 82.4 (80.0-100.0) fL MCH 29.2 (25.0-34.0) pg MCHC 35.4 (32.0-36.0) g/dL RDW Std Deviation 36.1 L (36.4-46.3) fL RDW Coeff of Norma 11.9 (11.5-14.5) % Plt Count 218 (130-400) K/uL MPV 9.6 (9.4-12.4) fL Immature Gran % (Auto) 0.3 % Neut % (Auto) 77.2 % Lymph % (Auto) 11.4 % Throckmorton % (Auto) 9.0 % Eos % (Auto) 1.5 % Baso % (Auto) 0.6 % Neut # (Auto) 6.79 H (1.40-6.50) K/uL Lymph # (Auto) 1.00 L (1.20-3.40) K/uL Throckmorton # (Auto) 0.79 H (0.11-0.59) K/uL Eos # (Auto) 0.13 (0.00-0.50) K/uL Baso # (Auto) 0.05 (0.00-0.20) K/uL Immature Gran # (Auto) 0.03 (0.01-0.20) K/uL PT 27.2 H (9.0-12.0) Seconds INR 2.7 H (0.9-1.1) APTT 43 H (21-31) Seconds PTT Ratio 1.6 Sodium 136 (136-145) mmol/L Potassium 3.7 (3.5-5.1) mmol/L Chloride 101 (98-107) mmol/L Carbon Dioxide 30 (21-32) mmol/L Anion Gap 5 (3-11) BUN 20 (6-23) mg/dl Creatinine 0.90 (0.6-1.4) mg/dl Est Cr Clr Drug Dosing 132.4 ml/min eGFR 115.65 BUN/Creatinine Ratio 22.2 H (10-20) Glucose 97 (70-99(Fasting)) mg/dl Calcium 10.0 (8.6-10.3) mg/dl Total Bilirubin 1.2 H (0.2-1.0) mg/dl AST 26 (13-39) U/L ALT 55 H (7-52) U/L Alkaline Phosphatase 100 (34-104) U/L Total Protein 7.9 (6.0-8.3) gm/dl Albumin 4.9 (3.4-5.0) gm/dl Globulin 3.0 (2.5-4.0) gm/dl Albumin/Globulin Ratio 1.6 (0.9-2) Nasal Screen MRSA (PCR) Negative (Negative) Administered Medications Aspirin (Aspirin 81 Mg Ectab) 81 mg PO [facility] Stop: 10/31/24 08:59 Last Admin: 10/01/24 07:47 Dose: 81 mg Documented By: HERBER Atorvastatin Calcium (Atorvastatin 40 Mg Tab) 40 mg PO [facility] Stop: 10/31/24 08:59 Last Admin: 10/01/24 07:47 Dose: 40 mg Documented By: HERBER Cyclobenzaprine HCl (Cyclobenzaprine Hcl 10 Mg Tab) 10 mg PO HS PRN PRN Reason: Muscle Spasm Stop: 10/31/24 02:44 Last Admin: 10/01/24 03:21 Dose: 10 mg Documented By: [id number] Fluticasone/Vilanterol (Fluticasone/Vilanterol 200/25mcg 14 Puffs/Inhaler) 1 puffs INH DAILY COUNTS INCLUDE 234 BEDS AT THE [facility] Stop: 10/31/24 08:59 Last Admin: 10/01/24 07:46 Dose: 1 puffs Documented By: HERBER Acetaminophen (Ofirmev) 1,000 mg in 100 mls @ 400 mls/hr IV Q8H PRN PRN Reason: Pain or Fever Stop: 10/04/24 02:44 Last Infusion: 10/01/24 14:05 Dose: Infused Documented By: Admin: 10/01/24 13:28 Dose: 400 mls/hr Documented By: Infusion: 10/01/24 05:07 Dose: Infused Documented By: [id number] Admin: 10/01/24 04:49 Dose: 400 mls/hr Documented By: [id number] Piperacillin Sod/Tazobactam Sod (Zosyn) 4.5 gm in 100 mls @ 25 mls/hr IV Q8H COUNTS INCLUDE 234 BEDS AT THE [facility]; Protocol Stop: 10/08/24 03:59 Last Admin: 10/01/24 13:15 Dose: 25 mls/hr Documented By: Infusion: 10/01/24 09:41 Dose: Infused Documented By: Infusion: 10/01/24 09:22 Dose: 25 mls/hr Documented By: Admin: 10/01/24 05:39 Dose: 25 mls/hr Documented By: [id number] Sodium Chloride (Nss) 1,000 mls @ 100 mls/hr IV .Q10H NERISSA Stop: 10/02/24 02:44 Last Admin: 10/01/24 10:43 Dose: 125 mls/hr Documented By: Infusion: 10/01/24 10:34 Dose: Infused Documented By: Admin: 10/01/24 03:21 Dose: 125 mls/hr Documented By: [id number] Lacosamide (Lacosamide 50 Mg Tablet) 50 mg PO [facility] COUNTS INCLUDE 234 BEDS AT THE [facility] Stop: 10/31/24 08:59 Last Admin: 10/01/24 08:07 Dose: 50 mg Documented By: HERBER Lamotrigine (Lamotrigine 100 Mg Tab) 300 mg PO BID COUNTS INCLUDE 234 BEDS AT THE [facility]; Protocol Stop: 10/31/24 08:59 Last Admin: 10/01/24 07:47 Dose: 300 mg Documented By: HERBER Morphine Sulfate (Morphine Sulfate 2 Mg/Ml Carp) 2 mg IV Q6 PRN PRN Reason: Mod-Sev Pain (Scale 4-10) Stop: 10/15/24 11:43 Last Admin: 10/01/24 12:50 Dose: 2 mg Documented By: HERBER Discontinued Medications Sodium Chloride (Nss) 1,000 mls @ 999 mls/hr IV .Q1H1M ONE Stop: 09/30/24 19:57 Last Infusion: 09/30/24 21:22 Dose: Infused Documented By: Admin: 09/30/24 20:21 Dose: 999 mls/hr Documented By: DENNYS Ampicillin Sodium/Sulbactam Sodium (Unasyn) 3,000 mg in 100 mls @ 200 mls/hr IV NOW STA Stop: 09/30/24 19:26 Last Infusion: 09/30/24 19:37 Dose: Infused Documented By: Admin: 09/30/24 19:07 Dose: 200 mls/hr Documented By: DENNYS Acetaminophen (Ofirmev) 1,000 mg in 100 mls @ 400 mls/hr IV NOW STA Stop: 09/30/24 20:36 Last Infusion: 09/30/24 20:51 Dose: Infused Documented By: Admin: 09/30/24 20:36 Dose: 400 mls/hr Documented By: DENNYS Piperacillin Sod/Tazobactam Sod (Zosyn) 4.5 gm in 100 mls @ 200 mls/hr IV NOW ONE; Protocol Stop: 09/30/24 21:28 Last Infusion: 09/30/24 21:58 Dose: Infused Documented By: Admin: 09/30/24 21:28 Dose: 200 mls/hr Documented By: DENNYS Doxycycline Hyclate 100 mg/ (Dextrose) 100 mls @ 50 mls/hr IV NOW STA Stop: 10/01/24 04:44 Last Infusion: 10/01/24 05:22 Dose: Infused Documented By: [id number] Admin: 10/01/24 03:21 Dose: 50 mls/hr Documented By: [id number] Magnesium Sulfate/Dextrose (Magnesium Sulfate / D5w) 1 gm in 100 mls @ 50 mls/hr IV ONE ONE Stop: 10/01/24 09:44 Last Infusion: 10/01/24 09:54 Dose: Infused Documented By: Admin: 10/01/24 07:43 Dose: 50 mls/hr Documented By: HERBER Phytonadione 5 mg/ Dextrose 50.5 mls @ 101 mls/hr IV 1415 ONE Stop: 10/01/24 14:44 Last Infusion: 10/01/24 15:02 Dose: Infused Documented By: Admin: 10/01/24 14:20 Dose: 101 mls/hr Documented By: HERBER Ioversol (Optiray 320 100ml) 93 ml IV ONCE ONE Stop: 09/30/24 19:47 Last Admin: 09/30/24 19:46 Dose: 93 ml Documented By: PLW Ketorolac Tromethamine (Ketorolac Tromethamine 15 Mg/Ml Vial) 10 mg IV NOW ONE Stop: 09/30/24 23:42 Last Admin: 09/30/24 23:49 Dose: 10 mg Documented By: DENNYS Lacosamide (Lacosamide 50 Mg Tablet) 50 mg PO NOW STA Stop: 09/30/24 23:24 Last Admin: 10/01/24 00:15 Dose: 50 mg Documented By: NAW Lamotrigine (Lamotrigine 100 Mg Tab) 300 mg PO NOW STA; Protocol Stop: 09/30/24 23:24 Last Admin: 10/01/24 00:15 Dose: 300 mg Documented By: [email or web address] Imaging Data Radiologist's Impression: Soft Tissue Neck CT 09/30/24 18:57 CT NECK WITH IV CONTRAST: INDICATION: PAIN TECHNIQUE: CT examination of the neck was performed following administration of the intravenous contrast. IV CONTRAST: 100 mL of OMNIPAQUE 300 FINDINGS: There is a periodontal disease involving left lateral incisor of the maxilla with cortical dehiscence along the buccal margin of the maxilla. At this site, there is a 1.3 cm area of hypodensity with overlying phlegmon. PHARYNX: The appearances of linda-, naso-, and para-pharyngeal spaces are within normal limits. LARYNX: The laryngeal structures appear unremarkable. INFRAHYOID NECK: The prevertebral soft tissues and airways are maintained LYMPH NODES: Scattered and small lymph nodes in the neck are noted, size insignificant. Appearances of the visceral structures, including parotid, submandibular and thyroid glands appear within normal limits. SKELETAL: Unremarkable. VASCULAR: The vascular structures appear intact. OTHER: No significant abnormality identified in the partially visualized brain. Mucosal disease of the left maxillary sinus. There are patchy groundglass densities in the right upper lobe of the lung. 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 Patchy groundglass densities in the right upper lobe of the lung representing pneumonia. Electronically signed by Jose Singh 09-30-2024 8:27 PM Chest X-Ray 09/30/24 20:45 CR Exam(s): XR CXR 1 VIEW EXAM: XR Chest, 1 View CLINICAL HISTORY: Reason for exam: eval pneumonia seen on CT neck. TECHNIQUE: Frontal view of the chest. COMPARISON: Prior chest x-ray from May 07, 2022. FINDINGS: Lungs: Moderate peribronchial thickening of the central bronchi with patchy opacity in the right lung. Increased interstitial opacities in the left lower lobe. Pleural space: Blunting of the costophrenic angles. No pneumothorax. Heart: Unremarkable. No cardiomegaly. Mediastinum: Unremarkable. Normal mediastinal contour. Bones/joints: Unremarkable. No acute fracture. IMPRESSION: Bronchitis with right pulmonary infiltrate. Communications: Verify Receipt Electronically signed by: Tamra Cadena MD 09/30/24 23:21 PM Discharge Plan Visit Data Chief Complaint: Infection Stated Complaint: ORAL INFECT THAT SPREAD TO FACE UNDER EYE ED Provider: Hill Malik ED Midlevel Provider: Rosie Sosa Discharge Problem: Dental abscess, Facial cellulitis, Pneumonia, Lupus (systemic lupus erythematosus) Patient Disposition: Admitted As Inpatient Condition: Good Discharge Instructions Interventions: ED Discharge Assessment Last Done: 10/01/24 02:00 Addendum October 01, 2024 16:07 I was consulted by the Advanced Practice Provider and was substantively involved in the patient's visit.This includes aspects of the HPI, MDM, diagnostic interpretations, and disposition/plan. I discussed the case with the RIYA and agree with the findings and plan as documented in RIYA Ian's note. Discharge Problem: Pneumonia Qualifiers: Pneumonia type: due to unspecified organism Laterality: right Lung location: u pper lobe of lung Qualified Code(s): J18.9 - Pneumonia, unspecified organism Lupus (systemic lupus erythematosus) Qualifiers: Systemic lupus erythematosus type: unspecified Systemic lupus erythematosus organ involvement: unspecified Qualified Code(s): M32.9 - Systemic lupus erythematosus, unspecified
[2024-09-30] MEDS: AMPICILLIN/SULBACTAM SOD 3,000 MG/100 ML BAG IV STA (19:07)
[2024-09-30 19:19] LABS: Basophils # (auto) 0.05 K/uL (0.00-0.20); Basophils % (auto) 0.6 %; Eosinophils # (auto) 0.13 K/uL (0.00-0.50); Eosinophils % (auto) 1.5 %; Hematocrit (blood only) 46.9 % (42.0-52.0); Hemoglobin 16.6 g/dl (14.0-18.0); Immature Granulocytes # (auto) 0.03 K/uL (0.01-0.20); Immature Granulocytes % (auto) 0.3 %; Lymphocytes % (auto) 11.4 %; Mean Corpuscular Hemoglobin 29.2 pg (25.0-34.0); Mean Corpuscular Hgb Conc 35.4 g/dL (32.0-36.0); Mean Corpuscular Volume 82.4 fL (80.0-100.0); Mean Platelet Volume 9.6 fL (9.4-12.4); Monocytes # (auto) 0.79 K/uL (0.11-0.59); Neutrophils # (auto) 6.79 K/uL (1.40-6.50); Neutrophils % (auto) 77.2 %; Platelet Count 218 K/uL (130-400); RDW Coefficient of Variation 11.9 % (11.5-14.5); RDW Standard Deviation 36.1 fL (36.4-46.3); Red Blood Count 5.69 M/uL (4.70-6.10); White Blood Count 8.79 K/ul (4.8-10.8)
[2024-09-30 19:38] LABS: Albumin Globulin Ratio 1.6 (0.9-2); Albumin Level 4.9 gm/dl (3.4-5.0); BUN Creatinine Ratio 22.2 (10-20); Bilirubin,Total 1.2 mg/dl (0.2-1.0); Creatinine Clr Calc Pharmacy 132.4 ml/min; Potassium 3.7 mmol/L (3.5-5.1); Total Protein 7.9 gm/dl (6.0-8.3)
[2024-09-30] MEDS: OPTIRAY 320 100ml IV ONE (19:46)
[2024-09-30 19:47] LABS: INR 2.7 (0.9-1.1); Partial Thromboplastin Ratio 1.6; Partial Thromboplastin Time 43 Seconds (21-31); Prothrombin Time 27.2 Seconds (9.0-12.0)
[2024-09-30] MEDS: SODIUM CHLORIDE 0.9% 1,000 ML IV ONE (20:21)
--- NOTE | 2024-09-30 20:27 | CT Scan Report ---
CT NECK WITH IV CONTRAST: INDICATION: PAIN TECHNIQUE: CT examination of the neck was performed following administration of the intravenous contrast. IV CONTRAST: 100 mL of OMNIPAQUE 300 FINDINGS: There is a periodontal disease involving left lateral incisor of the maxilla with cortical dehiscence along the buccal margin of the maxilla. At this site, there is a 1.3 cm area of hypodensity with overlying phlegmon. PHARYNX: The appearances of linda-, naso-, and para-pharyngeal spaces are within normal limits. LARYNX: The laryngeal structures appear unremarkable. INFRAHYOID NECK: The prevertebral soft tissues and airways are maintained LYMPH NODES: Scattered and small lymph nodes in the neck are noted, size insignificant. Appearances of the visceral structures, including parotid, submandibular and thyroid glands appear within normal limits. SKELETAL: Unremarkable. VASCULAR: The vascular structures appear intact. OTHER: No significant abnormality identified in the partially visualized brain. Mucosal disease of the left maxillary sinus. There are patchy groundglass densities in the right upper lobe of the lung. 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 Patchy groundglass densities in the right upper lobe of the lung representing pneumonia. Electronically signed by Jose Singh 09-30-2024 8:27 PM
[2024-09-30] MEDS: ACETAMINOPHEN 1,000 MG/100 ML VIAL IV STA (20:36)
[2024-09-30] MEDS: PIPERACILLIN/TAZOBACTAM 4.5 GM/100 ML BAG IV ONE (21:28)
--- NOTE | 2024-09-30 23:21 | XRay Report ---
Exam(s): XR CXR 1 VIEW EXAM: XR Chest, 1 View CLINICAL HISTORY: Reason for exam: eval pneumonia seen on CT neck. TECHNIQUE: Frontal view of the chest. COMPARISON: Prior chest x-ray from May 07, 2022. FINDINGS: Lungs: Moderate peribronchial thickening of the central bronchi with patchy opacity in the right lung. Increased interstitial opacities in the left lower lobe. Pleural space: Blunting of the costophrenic angles. No pneumothorax. Heart: Unremarkable. No cardiomegaly. Mediastinum: Unremarkable. Normal mediastinal contour. Bones/joints: Unremarkable. No acute fracture. IMPRESSION: Bronchitis with right pulmonary infiltrate. Communications: Verify Receipt Electronically signed by: Tamra Cadena MD 09/30/24 23:21 PM
--- NOTE | 2024-09-30 23:37 | History & Physical Report ---
Date of Service September 30, 2024 Assessment & Plan (1) Dental abscess: Plan: 34-year-old male with past medical history significant for reactive airway disease, interstitial lung disease, pulmonary nodules, chronic rhinitis, history of CVA, history of nonbacterial thromboembolic endocarditis, history of acute superficial gastritis, degenerative disc disease, history of epilepsy, 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 Patient says on left upper tooth he lost dental filling and has appointment with his dentist tomorrow. He went to urgent care and was prescribed Augmentin today but left side face started to swell which prompted him to come to the ER. Has pain in the left side of the face. Denies any fevers. Able to swallow okay. Denies shortness of breath. Denies chest pain. No headache. No runny nose or sore throat. No cough. Has mild abdominal discomfort in the right side. No nausea. No diarrhea or constipation. Micturating okay. Hemodynamics are okay. Dental abscess Left facial cellulitis Empiric Zosyn Pain control N.p.o. Oral surgery consult in a.m. 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 antiphospholipid syndrome Reportedly failed on Xarelto On Coumadin which he is held for now for dental abscess Restart Coumadin as soon as possible Continue aspirin and statin History of seizures On Lamictal and Vimpat Follows with neurology Hyperlipidemia On statin History of interstitial lung disease Continue home inhalers DVT prophylaxis SCDs for now Disposition Medical floor Full code History of Present Illness Chief Complaint: Dental infection and left facial cellulitis Primary Care Provider: Mukesh Boyd MD 34-year-old male with past medical history significant for reactive airway disease, interstitial lung disease, pulmonary nodules, chronic rhinitis, history of CVA, history of nonbacterial thromboembolic endocarditis, history of acute s uperficial gastritis, degenerative disc disease, history of epilepsy, 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 Patient says on left upper tooth he lost dental filling and has appointment with his dentist tomorrow. He went to urgent care and was prescribed Augmentin today but left side face started to swell which prompted him to come to the ER. Has pain in the left side of the face. Denies any fevers. Able to swallow okay. Denies shortness of breath. Denies chest pain. No headache. No runny nose or sore throat. No cough. Has mild abdominal discomfort in the right side. No nausea. No diarrhea or constipation. Micturating okay. Hemodynamics are okay. Past medical history. As mentioned above Past surgical history. Bronchoscopy. Dental surgery. EGD. EGD with endoscopic ultrasound. I&D and tooth extraction. Social history. Quit smoking in 2011. Smoked 1 pack a day for 8 years. Alcohol 1-2 drinks a week. Uses medical marijuana. Family history. Father had allergies. Glaucoma. Kidney cancer. Sleep apnea. Mother has allergies. Depression. Brother has sleep apnea. Allergies Allergy/AdvReac Type Severity Reaction Status Date / Time tramadol Allergy Severe SHORTNESS Verified 09/30/24 19:36 OF BREATH Home Medications Medication Instructions Recorded Confirmed Type atorvastatin 40 mg tablet (Lipitor) 40 mg PO QAM 06/17/18 09/30/24 History hydroxychloroquine 200 mg tablet 400 mg PO HS 06/17/18 09/30/24 History (Plaquenil) lamotrigine 100 mg tablet 300 mg PO BID 06/17/18 09/30/24 History (Lamictal) warfarin 7.5 mg tablet See Rx Instructions .Route .COMPLEX 09/15/18 09/30/24 History lacosamide 50 mg tablet (Vimpat) 50 mg PO AMHS 12/07/21 09/30/24 History acetaminophen 325 mg tablet 650 mg PO Q6 PRN Pain 09/30/24 09/30/24 History albuterol sulfate 90 mcg/actuation 2 puff inhalation Q4 PRN DYSPNEA 09/30/24 0 09/30/24 History aerosol inhaler OR WHEEZING amoxicillin 875 mg-potassium 1 tab PO AMHS 09/30/24 09/30/24 History clavulanate 125 mg tablet aspirin 81 mg tablet,delayed 81 mg PO QAM 09/30/24 09/30/24 History release cyclobenzaprine 10 mg tablet 10 mg PO HS PRN Muscle Spasm 09/30/24 09/30/24 History fluticasone propionate 50 2 spray intranasal DAILY PRN NASAL 09/30/24 09/30/24 History mcg/actuation nasal SYMPTOMS spray,suspension latanoprost 0.005 % eye drops 1 drp OPB HS 09/30/24 09/30/24 History mometasone-formoterol HFA 100 2 puff inhalation AMHS 09/30/24 09/30/24 History mcg-5 mcg/actuation aerosol inhaler (Dulera) Past Med/Surg History Problem List (Updated 09/30/24 @ 23:15 by Rosie Sosa PA-C) Lupus (systemic lupus erythematosus) (Acute) Pneumonia (Acute) Facial cellulitis (Acute) Dental abscess (Acute) DVT prophylaxis Hemoptysis Antiphospholipid antibody with hypercoagulable state (Chronic) Epilepsy (Chronic) Depression (Chronic) History of stroke (Chronic) Transaminitis (Chronic) History of pulmonary embolism (Chronic) Medical History Failing root canal Dental infection Cellulitis of neck Lupus Pulmonary alveolar hemorrhage Libman Sacks endocarditis Heart valve vegetation Antiphospholipid antibody with hypercoagulable state History of pulmonary embolism Anticoagulated Transaminitis History of stroke Depression Epilepsy Surgical History History of incision and drainage (12/05/21) p Incision and Drainage of Right [place] of Mouth/Submandibular Area(Right) - Payam Lee DMD s Infection and Extraction of Tooth #31(Right) - Payam Lee DMD H/O wisdom tooth extraction Family History Mother Depression Father MATT (obstructive sleep apnea) Social History Smoking Status: Former smoker Tobacco Type: Cigarettes Smoking End Date: 10 years ago; Second Hand Exposure: No; Do You Dip or Chew Tobacco: No; Hx Alcohol Use: Yes Alcohol type: hard liquor Hx Substance Use: Yes Last Used Substance: Unknown Last Used Substance Other:: states smokes marijuana nightly Substance Use Type Other:: daily medical marijuana Preferred Language: Albanian Communication Ability: Effective Visual Impairment: No Limitations Hearing Ability: Normal Director Of Early Childhood Required: No Beliefs That Will Affect Care: None Current Living Situation: Parent Current Living Situation Comment: with parents current occupational status: student How many Children do You have: 0 Feels Safe at Home: Yes Assistive Devices: None Review of Systems Review of Systems: All systems reviewed & are unremarkable except as noted in HPI & below Physical Exam Physical Exam: General- Not in distress Head- Left face swollen Eyes- PERRL. ENT- oropharynx moist Neck- supple, no JVD. Lungs- clear to auscultation no wheezing or crackles Heart- regular rate and rhythm; no murmur, no gallop. Abdomen- normal bowel sounds, soft, nontender, no distension Extremities- no pretibial edema, no erythema seen Neuro- alert, oriented PERRL, EOMI; no facial palsy; no dysarthria; moves extremities Results & Data Results & Data Vital Signs (Past 12 Hours) Vital Signs Temp Pulse Resp BP Pulse Ox O2 Del Method 09/30/24 22:41 74 09/30/24 22:06 75 16 163/97 H 97 09/30/24 21:30 70 19 132/91 96 Room Air 09/30/24 19:36 74 18 147/90 H 95 Room Air 09/30/24 18:41 73 09/30/24 18:25 37.0 C 78 20 148/86 H 96 Room Air Diagnostic Findings Laboratory Results WBC 8.79 K/ul (4.8-10.8) 09/30/24 19:07 RBC 5.69 M/uL (4.70-6.10) 09/30/24 19:07 Hgb 16.6 g/dl (14.0-18.0) 09/30/24 19:07 Hct 46.9 % (42.0-52.0) 09/30/24 19:07 MCV 82.4 fL (80.0-100.0) 09/30/24 19:07 MCH 29.2 pg (25.0-34.0) 09/30/24 19:07 MCHC 35.4 g/dL (32.0-36.0) 09/30/24 19:07 RDW Std Deviation 36.1 fL (36.4-46.3) L 09/30/24 19:07 RDW Coeff of Norma 11.9 % (11.5-14.5) 09/30/24 19:07 Plt Count 218 K/uL (130-400) 09/30/24 19:07 MPV 9.6 fL (9.4-12.4) 09/30/24 19:07 Immature Gran % (Auto) 0.3 % 09/30/24 19:07 Neut % (Auto) 77.2 % 09/30/24 19:07 Lymph % (Auto) 11.4 % 09/30/24 19:07 [place] % (Auto) 9.0 % 09/30/24 19:07 Eos % (Auto) 1.5 % 09/30/24 19:07 Baso % (Auto) 0.6 % 09/30/24 19:07 Neut # (Auto) 6.79 K/uL (1.40-6.50) H 09/30/24 19:07 Lymph # (Auto) 1.00 K/uL (1.20-3.40) L 09/30/24 19:07 [place] # (Auto) 0.79 K/uL (0.11-0.59) H 09/30/24 19:07 Eos # (Auto) 0.13 K/uL (0.00-0.50) 09/30/24 19:07 Baso # (Auto) 0.05 K/uL (0.00-0.20) 09/30/24 19:07 Immature Gran # (Auto) 0.03 K/uL (0.01-0.20) 09/30/24 19:07 PT 27.2 Seconds (9.0-12.0) H 09/30/24 19:07 INR 2.7 (0.9-1.1) H 09/30/24 19:07 APTT 43 Seconds (21-31) H 09/30/24 19:07 PTT Ratio 1.6 09/30/24 19:07 Sodium 136 mmol/L (136-145) 09/30/24 19:07 Potassium 3.7 mmol/L (3.5-5.1) 09/30/24 19:07 Chloride 101 mmol/L (98-107) 09/30/24 19:07 Carbon Dioxide 30 mmol/L (21-32) 09/30/24 19:07 Anion Gap 5 (3-11) 09/30/24 19:07 BUN 20 mg/dl (6-23) 09/30/24 19:07 Creatinine 0.90 mg/dl (0.6-1.4) 09/30/24 19:07 Est Cr Clr Drug Dosing 132.4 ml/min 09/30/24 19:07 eGFR 115.65 09/30/24 19:07 BUN/Creatinine Ratio 22.2 (10-20) H 09/30/24 19:07 Glucose 97 mg/dl (70-99(Fasting)) 09/30/24 19:07 Calcium 10.0 mg/dl (8.6-10.3) 09/30/24 19:07 Total Bilirubin 1.2 mg/dl (0.2-1.0) H 09/30/24 19:07 AST 26 U/L (13-39) 09/30/24 19:07 ALT 55 U/L (7-52) H 09/30/24 19:07 Alkaline Phosphatase 100 U/L (34-104) 09/30/24 19:07 Total Protein 7.9 gm/dl (6.0-8.3) 09/30/24 19:07 Albumin 4.9 gm/dl (3.4-5.0) 09/30/24 19:07 Globulin 3.0 gm/dl (2.5-4.0) 09/30/24 19:07 Albumin/Globulin Ratio 1.6 (0.9-2) 09/30/24 19:07 Nasal Screen MRSA (PCR) Negative (Negative) 09/30/24 22:15 Impressions Soft Tissue Neck CT 09/30/24 18:57 CT NECK WITH IV CONTRAST: INDICATION: PAIN TECHNIQUE: CT examination of the neck was performed following administration of the intravenous contrast. IV CONTRAST: 100 mL of OMNIPAQUE 300 FINDINGS: There is a periodontal disease involving left lateral incisor of the maxilla with cortical dehiscence along the buccal margin of the maxilla. At this site, there is a 1.3 cm area of hypodensity with overlying phlegmon. PHARYNX: The appearances of linda-, naso-, and para-pharyngeal spaces are within normal limits. LARYNX: The laryngeal structures appear unremarkable. INFRAHYOID NECK: The prevertebral soft tissues and airways are maintained LYMPH NODES: Scattered and small lymph nodes in the neck are noted, size insignificant. Appearances of the visceral structures, including parotid, submandibular and thyroid glands appear within normal limits. SKELETAL: Unremarkable. VASCULAR: The vascular structures appear intact. OTHER: No significant abnormality identified in the partially visualized brain. Mucosal disease of the left maxillary sinus. There are patchy groundglass densities in the right upper lobe of the lung. 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 Patchy groundglass densities in the right upper lobe of the lung representing pneumonia. Electronically signed by Jose Singh 09-30-2024 8:27 PM Chest X-Ray 09/30/24 20:45 CR Exam(s): XR CXR 1 VIEW EXAM: XR Chest, 1 View CLINICAL HISTORY: Reason for exam: eval pneumonia seen on CT neck. TECHNIQUE: Frontal view of the chest. COMPARISON: Prior chest x-ray from May 07, 2022. FINDINGS: Lungs: Moderate peribronchial thickening of the central bronchi with patchy opacity in the right lung. Increased interstitial opacities in the left lower lobe. Pleural space: Blunting of the costophrenic angles. No pneumothorax. Heart: Unremarkable. No cardiomegaly. Mediastinum: Unremarkable. Normal mediastinal contour. Bones/joints: Unremarkable. No acute fracture. IMPRESSION: Bronchitis with right pulmonary infiltrate. Communications: Verify Receipt Electronically signed by: Tamra Cadena MD 09/30/24 23:21 PM Code Status & VTE Plan VTE Prophylaxis Plan VTE Prophylaxis will be ordered: Yes
[2024-09-30] MEDS: KETOROLAC TROMETHAMINE 15 MG/ML VIAL IV ONE (23:49)
[2024-10-01] MEDS: LACOSAMIDE 50 MG TABLET PO STA (00:15)
[2024-10-01] MEDS: lamoTRIgine 100 MG TAB PO STA (00:15)
[2024-10-01] MEDS ORDERED: FLUTICASONE PROPIONATE NA SPR 16 GM BTL PRN (02:45)
[2024-10-01] MEDS ORDERED: ALBUTEROL HFA 8 GM INHALER INH PRN (02:45)
[2024-10-01] MEDS: CYCLOBENZAPRINE HCL 10 MG TAB PO PRN (03:21)
[2024-10-01] MEDS: SODIUM CHLORIDE 0.9% 1,000 ML IV SCH (03:21)
[2024-10-01] MEDS: DOXYCYCLINE HYCLATE 100 MG in DEXTROSE 5% MINI-B 100 ML IV STA (03:21)
[2024-10-01] MEDS: ACETAMINOPHEN 1,000 MG/100 ML VIAL IV PRN (04:49)
--- OUTSIDE RECORDS SUMMARY | 2024-10-01 05:02 | External Medical Summary | Summary of Care ---
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) Mukesh Polk MD [address] [place] [address] Phone: tel: fax: Referral ID Status Reason Start Date Expiration Date Visits Requested Visits Authorized [id number] Authorized Specialty Services Required 09/22/[phone] Encounter Details Date Type Department Care Team (Late st Contact Info) Description 09/28/2024 9:00 AM EDT Office Visit Neurology [address] [place] [phone] Fernando Schumacher DO [address] [place] [address] Other epilepsy without status epilepticus, not intractable (HCC)* Allergies Active Allergy Reactions Criticality Noted Date Comments Tramadol 05/28/2016 Lowers the seizure threshold documented as of this encounter (statuses as of 09/29/2024) Medications Aspirin 81 MG Tablet Take 1 Tablet by mouth in the morning. Active Acetaminophen (TYLENOL) 325 MG CAPS Take 650 mg by mouth daily as needed for Pain. Active fluticasone (FLONASE) 50 MCG/ACT nasal spray SPRAY 2 SPRAYS INTO EACH NOSTRIL ONE TIME DAILY FOR CHRONIC NASAL SYMPTOMS. 30 mL 11 0 Active Albuterol Sulfate HFA 108 (90 Base) MCG/ACT Inhalation Aerosol SolutionIndicati ons:Hemoptysis,H istory of pulmonary embolism Inhale by mouth 2 Puffs every 4 hours as needed for Wheezing or Dyspnea. 18 g 1 2 Active Rhofade 1 % External Cream (Oxymetazoline HCl) Apply topically to affected area daily . 1 Active Dulera 100-5 MCG/ACT Inhalation Aerosol (Mometasone-Form oterol) Inhale 2 Puffs by mouth in the morning and 2 Puffs before bedtime. 13 g 2 4 Active Latanoprost 0.005 % Ophthalmic Solution (Xalatan) Instill 1 Drop into both eyes at bedtime. 4 Active Cyclobenzaprine HCl 10 MG Oral Tablet (Flexeril)Indica tions:Back spasm Take 1 Tablet by mouth at bedtime as needed for Muscle spasms. 30 Tablet 4 Active Warfarin Sodium 7.5 MG Oral Tablet (Coumadin)Indica tions:Pulmonary embolism and infarction (HCC) TAKE 1 TO 1 & 1/2 TABS BY MOUTH DAILY IN THE MORNING OR DIRECTED BY COUMADIN CLINIC 180 Tablet 1 4 Active Hydroxychloroqui ne Sulfate 200 MG Oral Tablet (Plaquenil) TAKE 2 TABLETS BY MOUTH AT BEDTIME 180 Tablet 2 4 Active lamoTRIgine 100 MG Oral Tablet (LaMICtal) TAKE 3 TABLETS BY MOUTH TWICE A DAY 540 Tablet 1 4 Active Lacosamide 50 MG Oral Tablet (Vimpat)Indicati ons:Nonintractab le epileptic spasms without status epilepticus (HCC) TAKE 1 TABLET BY MOUTH IN THE MORNING AND BEFORE BEDTIME 180 Tablet 1 4 Active Lacosamide 50 MG Oral Tablet (Vimpat)Indicati ons:Nonintractab le epileptic spasms without status epilepticus (HCC) Take 1 Tablet by mouth in the morning and 1 Tablet before bedtime. 180 Tablet 3 4 Active Atorvastatin Calcium 40 MG Oral Tablet (Lipitor) TAKE 1 TABLET BY MOUTH EVERY DAY IN THE MORNING 90 Tablet 2 5 Active documented as of this encounter (statuses as of 09/29/2024) Active Problems Problem Noted Date Diagnosed Date Primary open angle glaucoma (POAG) of both eyes, mild stage 09/22/2024 ILD (interstitial lung disease) 01/11/2024 Medical marijuana use 11/05/2022 Reactive airway disease without complication History of 2019 novel coronavirus disease (COVID -19) 12/13/2021 Overview (12/13/2021): 08/12 Mixed rhinitis 01/14/2019 History of hemoptysis 10/27/2018 Pulmonary nodules 10/27/2018 Obesity, Class I, BMI 30.0-34.9 (see actual BMI) 10/27/2018 Chronic rhinitis 10/21/2018 Systemic lupus erythematosus 07/23/2018 DDD (degenerative disc disease), lumbar 03/28/20 Lumbar back pain 03/18/2017 Antiphospholipid syndrome 10/20/2016 Warfarin anticoagulation 10/20/2016 Acute superficial gastritis without hemorrhage 0 10/20/2016 History of pulmonary embolism 10/20/2016 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 Jose Antonio Gilmore was discharged from [facility] on 10/14/16. During stay he was found to have a cerebellar stroke and new mitral valve vegetation. History, SANDIE, and lab findings suggest diagnosis of nonbacterial thrombotic endocarditis in setting of antiphospholipid antibody syndrome. MV vegetation had occurred despite 4 months of therapy with Xarelto for PE diagnosed in 04/2016, therefore Xarelto discontinued and pt transitioned to heparin, and coumadin Elevated serum creatinine 09/12/2016 Nonintractable epileptic spasms without status e pilepticus 10/26/2015 Well adult exam 10/03/2015 Overview (07/08/2022): 07/12 Bronchoscopy-+bleeding. 10/05 admit--rec f/u rheum, gi? Bronchoscopy WNL 05/06 TTE WNL @[facility] documented as of this encounter (statuses as of 09/29/2024) Resolved Problems Problem Noted Date Diagnosed Date Resolved Date Mycobacterium infection 10/27/201812/21 Allergic rhinitis 10/27/2018 01/14/2019 Hemoptysis 09/17/2018 01/11/2024 Nonbacterial thrombotic endocarditis 10/20/2016 10/26/2016 Pulmonary hemorrhage 10/20/2016 019 Pulmonary embolism and infarction 05/22/2016 05/29/2019 Overview (10/26/2016): 05/06 [facility] DX. 10/05 admit. elev lupus antico + cardiolipin Epileptic spasms 10/26/2015 10/20/2016 Bacterial pneumonia 05/31/2012 08/26/19 13 Acute bronchitis, complicated 02/11/2012 08/26/2012 Body mass index (BMI) of 120 % to less than 140% of 95th percentile for age in pediatric patient 10/13/2009 03/29/2011 Overview (04/21/2024): Per Obesity Taxonomy ICD-10 update of inactive term Routine child health exam 02/19/2005 OTH LEARNING DIFFICULTY 01/01/200202/2011 OBESITY, UNSPECIFIED 010 Overview (10/13/2009): Per Obesity Taxonomy documented as of this encounter (statuses as of 09/29/2024) Immunizations Name Administration Dates Next Due COVID-19 mRNA, LNP-s, No Pre serve, 2-Dose Series ([employer]) 11/15/2020,10/25/2020 Covid-19, Mrna, Lnp-s, Pf, B ivalent, 30 Mcg, IM, 12 yrs and above ([employer]) 05/01/2022 HPV Vaccine, 9-Valent 09/22/2024,01/25/2016,12/2015 Meningococcal Conjugate Vacc ine (Menactra/Menveo) 02/24/2007 Meningococcal MCV4P Conjugat e Vaccine (Menactra) 02/24/2007 Pneumococcal Conjugate Vacci ne, 20-valent ([id number]) 12/13/2021 Seasonal Influenza Vac., MDV , IM, 0.5 mL (Fluzone) 05/20/2016,05/11/2008 Seasonal Influenza, PF, 6 M & above, IM , (FluLaval or Fluzone) 05/01/2022,07/14/2018 Seasonal Influenza, QUAD, wi th Preserv, 6 mons & Above, 0.5 mL, IM 05/01/2022 Seasonal Influenza, Trivalen t, (IIV3), PF, (Fluzone) 09/22/2024 TD, Preservative Free 02/01/2004 TDAP (age 10 and older)(Boostrix) 11/25/2015 documented as of this encounter Social History Tobacco Use Types Packs/Day Years Used Date Smoking Tobacco: Former Cigarettes 1 8 0 11/20/2003 - 11/20/2011 Smokeless Tobacco: Never Comments:no passive smoke Alcohol Use Standard Drinks/Week Comments Yes 2 (1 standard drink = 0.6 oz pur e alcohol) 1-2 drinks a week PHQ-2 Answer Date Recorded PHQ Adult Total Score 18 09/22/2024 Hunger Vital Sign Answer Date Recorded Within the past 12 months, y ou worried that your food would run out before you got the money to buy more. Never true 09/23/19 25 Within the past 12 months, t he food you bought just didn't last and you didn't have money to get more. Never true 09/22/2024 Childcare Answer Date Recorded Do you feel overwhelmed with taking care of a child, family member or friend? No 09/22/2024 Does your family need help f inding childcare? (Household - for ages 0-17 years) Not on file 09/22/2024 Clothing Answer Date Recorded Have you been unable to get clothing when it was really needed? No 09/22/2024 Is your family able to get c lothes or diapers when needed? (Household - for ages 0-17 years) Not on file 09/22/2024 Personal Safety Answer Date Recorded Do you feel unsafe or have concerns for your saf ety? No 09/22/2024 Do you have concerns for you r family's safety? (Household - for ages 0-17 years) Not on file 09/22/2024 Utilities Answer Date Recorded Do you have trouble paying y our heating, water, or electric bill? No 09/22/2024 Is your family able to pay t he heat, water, or electric bill? (Household - for ages 0-17 years) Not on file 09/22/2024 Does your family have access to good internet? (Household - for ages 0-17 years) Not on file 09/22/2024 Employment Status Answer Date Recorded Are you unemployed or without regular income? No 09/22/2024 Does the household have a re lar source of income? (Household - for ages 0-17 years) Not on file 09/22/2024 Social Connections Answer Date Recorded How often do you feel lonely or isolated from th ose around you? Often 09/22/2024 Financial Resource Strain Answer Date R ecorded Do you have any trouble payi ng for your medications, or do you think you might in the future? No 09/22/2024 Does your family have troubl e paying for medicine? (Household - for ages 0-17 years) Not on file 09/22/2024 Transportation Needs Answer Date Record ed Do you have trouble getting a ride to medical visits or work? (Adult - for ages 18 years and over) Not on file 09/22/2024 Does your family have a hard time getting a ride to doctors visits? (Household - for ages 0-17 years) Not on file 09/22/2024 Has lack of transportation k ept you from medical appointments, meetings, work, or from getting things needed for daily living? Check all that apply. No 09/22/2024 Do you (or your family) have trouble finding or paying for a ride (transportation)? (Household - for ages 0-17 years) Not on file 09/22/2024 Housing Stability Answer Date Recorded Do you currently live in a s helter or have no steady place to sleep at night? No 09/22/2024 Do you think you are at risk of becoming homeless? (Adult - for ages 18 years and over) Not on file 09/22/2024 Does your family worry about paying for your home or becoming homeless? (Household - for ages 0-17 years) Not on file 0 09/22/2024 Are you homeless or worried that you might be in the future? No 09/22/2024 Are you (or your family) lissa eless or worried that you might be in the future? (Household - for ages 0-17 years) Not on file Food Insecurity Answer Date Recorded Within the past 12 months, y ou worried that your food would run out before you got the money to buy more. Never true 09/23/19 25 Within the past 12 months, t he food you bought just didn't last and you didn't have money to get more. Never true 09/22/2024 Do you need food for this week? No 09/22/2024 Sex and Gender Information Value Date Recorded Sex Assigned at Male 09/22/2024 10:43 AM EST Legal Sex Male 6:02 AM EST Gender Identity Male 09/22/2024 10:43 AM EST Sexual Orientation Straight 09/22/2024 10 :43 AM EST Occupation Industry Job Start Date Job End Date [employer]. 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) Not on file Not on file Not on file documented as of this encounter Last Filed Vital Signs Vital Sign Reading Time Taken Comments Blood Pressure 144/78 09/28/2024 9:01 AM EDT Pulse 79 09/28/2024 9:01 AM EDT Temperature 35.9 C (96.7 F) 09/28/2024 9:01 AM ED T Respiratory Rate - - Oxygen Saturation 98% 09/28/2024 9:01 AM EDT Inhaled Oxygen Concentration - - Weight 98.5 kg (217 lb 3.2 oz) 09/28/2024 9:01 A M EDT Height 170.2 cm (5' 7") 09/28/2024 9:01 AM EDT Body Mass Index 34.02 09/28/2024 9:01 AM EDT documented in this encounter Functional Status * Are you deaf or do you have serious difficulty hearing? Answer Date of Assessment Author No 09/17/2018 12:11 AM EST Ambar Culp RN * Are you blind or do you have serious difficulty seeing, even when wearing glasses? Answer Date of Assessment Author No 09/17/2018 12:11 AM Ambar Lema RN * Do you have serious difficulty walking or climbing stairs? (5 years old or older) Answer Date of Assessment Author No 09/17/2018 12:11 AM Ambar Lema RN * Do you have difficulty dressing or bathing? (5 years old or older) Answer Date of Assessment Author No 09/17/2018 12:11 AM Ambar Lema RN * Because of a physical, mental, or emotional condition, do you have difficulty doing errands alone such as visiting a doctors office or shopping? (15 years old or older) Answer Date of Assessment Author No 09/17/2018 12:11 AM Ambar Lema RN documented as of this encounter Mental Status * Because of a physical, mental, or emotional condition, do you have serious difficulty concentrating, remembering, or making decisions? (5 years old or older) Answer Entry Date Author No 09/17/2018 12:11 AM Ambar Lema RN documented in this encounter Progress Notes * Fernando Schumacher DO - 09/28/2024 9:00 AM EDT NEUROLOGY OUTPATIENT NOTE: Return Patient Neurology [address] [place] [id number] Patient Jose Antonio Gilmore : 1990 Encounter Date:09/28/24 PCP: No primary care provider on file. Referral: REF: MUKESH POLK [address] [place] [phone] (office) [phone] (fax) Chief Complaint: Epilepsy medication side effects HISTORY OF PRESENT ILLNESS: History provided by patient Jose Antonio Gilmore is a 34 year old male seen by neurology for follow up on epilepsy Pertinent Past medical history includes: Epilepsy with generalized seizures of unspecified onset type. Documented, Left Cerebellar stroke in 2015 Was presumed due to marantic endocarditis from APLS On warfarin, reportedly failed xarelto Per chart review stroke was called on [facility], at the time. A subsequent MRI brain from 2022 showed a minuscule focus of flair hyperintensity in the superficial rostral cerebellum just to the left of midline. This could possibly be the lesion they that caused his issues but overall it is so small it seems improbable it would be picked up on CT or cause lasting unilateral ataxia. 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 De La Rosa, notes from prior provider: " Jose Antonio is 33 years old has a longstanding seizure disorder now finally well- controlled on 300 mg of Lamictal twice a day and Vimpat 50 mg twice a day ... He does have a history of a antiphospholipid antibody syndrome was on Eliquis for while developed asignificant valvular vegetation which was asymptomatic and had a stroke involving his left cerebellum and still has some mild issues with incoordination on left side recovered nicely and is now back on Coumadin rather than a novel anticoagulant. ... ... He does have some periodic tremulousness of his hands and is on some inhalers in addition to the Lamictal so this may be drug-induced tremor. 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 Noted that he had brain fog when he returned to school two years ago. 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 Feels that it may have been issues with alluminum oxide fumes. Last seizure was when he tried to get off of keppra. In 2018. He was awake for this. Other seizureshave been out of sleep. He wears tinted contacts, that seem to prevent him from falling over. Epilepsy History Age at Onset of seizure/spells: onset at 26 EVENT TYPE # 1: AKA seizure out of sleep Triggers : sleep deprivation, maybe poor diet Prodrome/Warning/Aura: None out of sleep Event Description / Semiology / Duration: [place] up, stopped breathing Sometimes loses urine Possible shaking Postrdrome / Postictal phase: Tired, nauseated, confused. Lasted maybe 15 mins Amnestic of event?: yes Description First event of this type: Awoke with a massive headache and had lost his urine. Subsequently had vomiting. Went to sleep and generalized tonic clonic seizure observed by parents. Frequency: twice in his life Date of last event: around 2015 EVENT TYPE # 2: AKA seizure while awake Triggers happened once while driving Prodrome/Warning/Aura: confusion, jamevu, sense of impending doom Event Description / Semiology / Duration: He stiffened up and stopped breathing Unsure if shaking. Postrdrome / Postictal phase: same as above Amnestic of event?: yes Description First event of this type: In the car with his friends. Frequency: once, when he went off of keppra, none since starting vimpat. Date of last event: 2017 EVENT TYPE # 3: AKA "Drop attacks" Triggers possibly light? Prodrome/Warning/Aura: hot flash Event Description / Semiology / Duration: Falls over Retains awareness Falls to the left Gets up after a minute Postrdrome / Postictal phase: no Amnestic of event?: yes Description First event of this type: 2016 Frequency: Before he had contacts he would get one every few days. Date of last event: 2017 Treatment History: Current ASMs: On lamotrigine 300 BID On Vimpat 50 BID Side Effects: Excessive brain fog attributed to vimpat. Prior ASMs: Keppra : Stopped due to mood Ever had status epilepticus?: no Epilepsy Risk Factors: High Fevers/Febrile Seizures: no Academic/Developmental/ history: no Prior Seizures: no Staring Spells: no Headaches: no History of Head Injury/LOC: concussion in high school from football. History of Stroke: yes. 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 No acute infarct, intraparenchymal mass, edema, or midline shift. Basilar cisterns are patent. No abnormal intracranial enhancement. Scattered foci of T2 FLAIR hyperintensity seen within the cerebral white matter which are nonspecific but possibly related to prior ischemia given the provided clinical history of embolic CVA. Incidental note made of a pineal cyst measuring 9 mm. Cerebellar tonsils are normal in position and configuration. The sellar and parasellar regions are within normal limits. Vascular flow voids are maintained at the skull base. No suspicious calvarial signal abnormality. Orbits are unremarkable on this nondedicated exam. No significant signal abnormality within the visualized paranasal sinuses or mastoid air cells. IMPRESSION IMPRESSION No acute intracranial abnormality. EEG : Routine EEG 10/10/15 EEG INTERPRETATION: This EEG appears within the wide range of normal limits for patient's age. No evidence of persistent focal, lateralized or epileptiform features were seen during wakefulness, drowsiness, photic stimulation, hyperventilation. Current Outpatient Medications Medication Sig Dispense Refill Aspirin 81 MG Tablet Take 1 Tablet by mouth in the morning. Acetaminophen (TYLENOL) 325 MG CAPS Take 650 mg by mouth daily as needed for Pain. fluticasone (FLONASE) 50 MCG/ACT nasal spray SPRAY 2 SPRAYS INTO EACH NOSTRIL ONE TIME DAILY FOR CHRONIC NASAL SYMPTOMS. 30 mL 11 Albuterol Sulfate HFA 108 (90 Base) MCG/ACT Inhalation Aerosol Solution Inhale by mouth 2 Puffs every 4 hours as needed for Wheezing or Dyspnea. 18 g 1 Rhofade 1 % External Cream (Oxymetazoline HCl) Apply topically to affected area daily . Dulera 100-5 MCG/ACT Inhalation Aerosol (Mometasone-Formoterol) Inhale 2 Puffs by mouth in the morning and 2 Puffs before bedtime. 13 g 2 Latanoprost 0.005 % Ophthalmic Solution (Xalatan) Instill 1 Drop into both eyes at bedtime. Cyclobenzaprine HCl 10 MG Oral Tablet (Flexeril) Take 1 Tablet by mouth at bedtime as needed for Muscle spasms. 30 Tablet 0 Warfarin Sodium 7.5 MG Oral Tablet (Coumadin) TAKE 1 TO 1 & 1/2 TABS BY MOUTH DAILY IN THE MORNING OR DIRECTED BY COUMADIN CLINIC 180 Tablet 1 Hydroxychloroquine Sulfate 200 MG Oral Tablet (Plaquenil) TAKE 2 TABLETS BY MOUTH AT BEDTIME 180 Tablet 2 lamoTRIgine 100 MG Oral Tablet (LaMICtal) TAKE 3 TABLETS BY MOUTH TWICE A DAY 540 Tablet 1 Lacosamide 50 MG Oral Tablet (Vimpat) TAKE 1 TABLET BY MOUTH IN THE MORNING AND BEFORE BEDTIME 180 Tablet 1 Lacosamide 50 MG Oral Tablet (Vimpat) Take 1 Tablet by mouth in the morning and 1 Tablet before bedtime. 180 Tablet 3 Atorvastatin Calcium 40 MG Oral Tablet (Lipitor) TAKE 1 TABLET BY MOUTH EVERY DAY IN THE MORNING 90Tablet 2 No current facility-administered medications for this visit. ALLERGIES: Tramadol Past Medical History: Diagnosis Date Acute superficial gastritis without hemorrhage 10/20/2016 Antiphospholipid syndrome (HCC) 10/20/2016 Aspiration pneumonia of right middle lobe (HCC) 01/22/2016 Cerebellar infarct (HCC) 10/08/201610/05 acute? [facility]. 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 ([facility]) 10/26/2015 Pulmonary embolism ([facility]) Pulmonary embolism and infarction ([facility]) 05/22/201605/06 [facility] Pulmonary embolus and infarction ([facility]) 10/20/2016 Pulmonary hemorrhage 10/20/2016 Systemic lupus erythematosus ([facility]) 07/23/2018 Plaquenil Varicella without complication 4th grade Warfarin anticoagulation 10/20/2016 Family History Problem Relation Name Age of Onset Allergies Mother strawberries - hives Mental Disorder Mother Depression Allergies Father cat and dog allergy Other (Other) Father sleep apnea Glaucoma Father Kidney cancer Father unsure if bx done-ablation done. No Known Problems Sister No Known Problems Sister Other (sleep apnea) Brother Past Surgical History: Procedure Laterality Date BRONCHOSCOPY 09/2016 [facility]. benign. BRONCHOSCOPY 2019 BRONCHOSCOPY, DIAGNOSTIC N/A 07/04/2022 BRONCHOSCOPY DIAGNOSTIC WITH OR WITHOUT WASHING performed by Topher Timmons MD at OR [facility] DENTAL SURGERY PROCEDURE NEC wisdom teeth , tooth extraction. EGD, FLEXIBLE, DIAGNOSTIC 10/05/2016 gastritis/[facility] EGD, FLEXIBLE, DIAGNOSTIC 11/13/2018 normal biopsies/ESOPHAGOGASTRODUODENOSCOPY (EGD), FLEXIBLE, TRANSORAL, DIAGNOSTIC performed by Hans Olivia DO at ENDOSCOPY [facility] EGD, W/ENDOSCOPIC US 11/13/2018 biopsies of liver show mild inflammation/ESOPHAGOGASTRODUODENOSCOPY (EGD), FLEXIBLE, TRANSORAL, ENDOSCOPIC ULTRASOUND performed by Hans Olivia DO at ENDOSCOPY [facility] I&D ABSC INTRAORAL SOFT TISS 12/05/2021 I&D & Tooth extraction Dr Payam Lee [facility] OTHER 2008 wisdom teeth (4)--gen anes Social History Socioeconomic History Marital status: Single Spouse name: Not on file Number of children: Not on file Years of education: Not on file Highest education level: Not on file Occupational History Occupation: [employer]. 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) Tobacco Use Smoking status: Former Current packs/day: 0.00 Average packs/day: 1 pack/day for 8.0 years (8.0 ttl pk-yrs) Types: Cigarettes Start date: 11/20/2003 Quit date: 11/20/2011 Years since quittin.8 Smokeless tobacco: Never Tobacco comments: no passive smoke Vaping Use Vaping status: Former Substance and Sexual Activity Alcohol use: Yes Alcohol/week: 2.0 standard drinks of alcohol Types: 2 1.5 oz of liquor per week Comment: 1-2 drinks a week Drug use: Yes Frequency: 7.0 times per week Types: Marijuana Comment: medical marijuana, vaporizer Sexual activity: Not Currently Partners: Female control/protection: Condom Other Topics Concern Not on file Social History Narrative 3 dogs and 1 cat in his home. No mold. Social Needs Financial Resource Strain: Low Risk (09/22/2024) Financial Resource Strain Do you have any trouble paying for your medications, or do you think you might in the future? (Adult - for ages 18 years and over): No Does your family have trouble paying for medicine? (Household - for ages 0-17 years): Not on file Food Insecurity: No Food Insecurity (09/22/2024) Food Insecurity Worried About Running Out of Food in the Last Year: Never true Ran Out of Food in the Last Year: Never true Do you need food for this week? (Adult - for ages 18 years and over): No Transportation Needs: No Transportation Needs (09/22/2024) Transportation Needs Do you have trouble getting a ride to medical visits or work? (Adult - for ages 18 years and over):Not on file Does your family have a hard time getting a ride to doctors visits? (Household - for ages 0-17 years): Not on file Has lack of transportation kept you from medical appointments, meetings, work, or from getting things needed for daily living? Check all that apply. (Adult - for ages 18 years and over): No Do you (or your family) have trouble finding or paying for a ride (transportation)? (Household - for ages 0-17 years): Not on file Social Connections: Socially Isolated (09/22/2024) Social Connections How often do you feel lonely or isolated from those around you? (Adult - for ages 18 years and over): Often Housing Stability: Low Risk (09/22/2024) Housing Stability Do you currently live in a retirement or have no steady place to sleep at night? (Adult - for ages 18 years and over): No Do you think you are at risk of becoming homeless? (Adult - for ages 18 years and over): Not on file Does your family worry about paying for your home or becoming homeless? (Household - for ages 0-17 years): Not on file Are you homeless or worried that you might be in the future? (Adult - for ages 18 years and over): No Are you (or your family) homeless or worried that you might be in the future? (Household - for ages0-17 years): Not on file REVIEW OF SYSTEMS: As stated in HPI otherwise negative PHYSICAL EXAM Pulse: 79 (09/28/24900) BP: 144/78 (09/28/24900) Temp: 35.9 C (96.7 F) (09/28/24900) SpO2: 98 % (09/28/24900) General Examination: Constitutional: Appearance non-obese, no deformities, and well groomed Head/face, ears, nose, throat: normocephalic, atraumatic, (TINTED CONTACT LENSES IN PLACE) Psychiatric: normal judgement and insight, normal mood, and normal affect Neurologic Examination: Ophthalmoscopic: Deferred due to inadequate dilation Mental Status and Orientation: awake, alert, oriented x 3 Memory: intact to recent and remote recall Attention: normal Knowledge:normal Language: no aphasia Speech: no dysarthria Cranial Nerves: CN 2 - no visual defect on confrontation and pupils round, equal, reactive to light CN 3, 4, 6 - extra-ocular movements intact and no nystagmus CN 5 - facial sensation intact V1-3 CN 7 - no facial asymmetry CN 8 - intact hearing CN 9, 10 - palate symmetric, uvula midline, no deviation CN 11 - shoulder shrug full strength CN 12 - tongue protrudes midline Sensory: intact to light touch Coordination: intact with finger to nose testing and heel to oakes normal Gait: stable and no ataxia Muscle Tone: normal Muscle exam: strength 5/5 upper and lower extremities and no drift Reflexes: Brachioradialis Biceps Triceps Patellar Achilles Plantars Gregg's Right 2+ 2+ 2+ 2+ 2+ downgoing not present Left 2+ 2+ 2+ 2+ 2+ downgoing not present STUDIES: Laboratory Results Reviewed in [facility] Latest Reference Range & Units 06/17/24 11:11 07/24/24 12:22 08/28/24 11:48 INR 0.8 - 1.2 3.7 (H) 3.0 (H) 3.5 (H) Prothrombin Time 11.6 - 15.2 seconds 37.1 (H) 31.6 (H) 35.2 (H) (H): Data is abnormally high Latest Reference Range & Units 11/03/18 12:31 06/27/22 14:05 07/01/23 14:37 Lamotrigine 2.5 - 15.0 ug/mL 9.2 7.9 10.2 LAMOTRIGINE LEVEL Rpt Rpt Rpt Rpt: View report in Results Review for more information Review of prior Studies: Reviewed in [facility] See above ASSESSMENT: 34 year old year-old male with pmhx of 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 Thus far his workup has revealed an overall normal MRI brain (there is even a question as to whether or not there is any sign of his prior reported stroke) and a normal interictal routine eeg. In the absence of EEG captured seizure there is still some question as to whether or not he has epilepsy or some other paroxysmal disorder such as syncope or pnea, however given that he endorses episodes out of sleep with loss of urine and tongue bite as well as a generalized episode during the daythat occurred only when he weaned off keppra my suspicion for true epilepsy is very high. These drop attacks that were refractory to ASMs yet preventable with tinted contact lenses are also a matter for consideration. These episodes could be functional or syncopal in nature, however some type of photosensitive generalized epilepsy cannot be ruled out. Since he complains of medication side effects and he has been well controlled on lamotrigine 300 BID and vimpat 50 BID for over 6 years it is reasonable to consider de-escalating his medication, however since he had breakthrough seizures while de-escalating medication in the past this would best bedone during an EMU admission so he can be closely monitored. PLAN: Other epilepsy without status epilepticus, not intractable (HCC) - EPILEPSY MONITORING UNIT REFERRAL OP My preference would be to have him observed at his baseline regimen and then weaned off of vimpat while monitoring eeg. If he has no clinical or electrographic events I would err on the side of kepping lamotringine in place and discharging him off of vimpat. If removing vimpat causes concerning discharged or seizures then it should be put back on, or maybereplaced with an alternative agent that is less sedating if the epilepsy provider business administration instructor has something in mind. We may also consider a trial of removing his tinted contacts to see if one of his drop attacks can be induced. He should follow up with his regular neurologist Dr. De La Rosa after his EMU admission is complete. Fernando Schumacher DO The patient was examined and was discussed with Dr. Aden. documented in this encounter Plan of Treatment Upcoming Encounters Date Type Department Care Team (Late st Contact Info) Description 10/02/2024 12:30 PM EDT [facility] [address] [phone] Vee Thakur [address] [place] [address] 10/05/2024 6:15 AM EDT Anticoagulation Centralized Clinical Pharmacy Services, Daysi Rueda [address] [place] [address] [place] [place] [address] [place] [address] 11/12/2024 8:30 AM EDT [facility] [address] [phone] Vargas Valdez PA-C [address] [employer] [place] [address] 01/18/2025 10:40 AM EDT Office Visit Neurology [facility] [place] [address] [place] [address] Uriah De La Rosa MD [address] [place] [address] 11/02/2025 4:00 PM EDT Office Visit Family Practice [facility] [address] [place] [address] Mukesh Polk MD [address] [place] [address] Scheduled Orders Name Type Priority Associated Diagnoses Orde r Schedule EPILEPSY MONITORING UNIT REFERRAL OP Procedures Routine Other epilepsy without status epilepticus, not intractable (HCC) Ordered: 09/28/2024 Health Maintenance Due Date Last Done Comments HIV Screening 2006 COVID-19 Vaccine ( season) 2024 05/01/2022, 11/15/2020, 10/25/2020 Depression Monitoring 09/22/2025 09/22/2024, 025 DTap/Tdap Vaccines (7 - Td or Tdap) 11/24/2025 11/25/2015, 02/01/2004, 02/01/2004, Additional history exists Hepatitis B Vaccine Completed 12/30/2002, 11/10/1997, 05/13/1997 MENINGOCOCCAL (MENACTRA/MENVEO) Aged Out 02/24/2007, 02/24/2007 No longer eligibl e based on patient's age to complete this topic Hepatitis C Screening Completed 03/25/2018, 016 Pneumococcal Vaccine: Pediatrics (0 to 5 Years) and At-Risk Patients (6 to 18 Years and 19+ Years) Completed 12/13/2021 HPV (Gardasil) Vaccine Completed , 01/25/2016, 11/25/2015 Influenza Vaccine (FLU shot) Completed 10/2024, 05/01/2022, 05/01/2022, Additional history exists Meningitis B Vaccine (Bexsero/Trumemba) Aged Out No longer eligible based on patient's age to complete this topic documented as of this encounter Medical Devices Not on filedocumented as of this encounter Visit Diagnoses Diagnosis Other epilepsy without status epilepticus, not intractable (HCC)- Primary documented in this encounter Advance Directives * Full Code (Latest Code Status on File) Date Activated Date Inactivated Comments 09/17/2018 12:49 AM 09/21/2018 6:13 PM This order r eflects the patients wishes and were consensually agreed upon.
--- OUTSIDE RECORDS SUMMARY | 2024-10-01 05:02 | External Medical Summary | Summary of Care ---
Author Name Unknown Organization [facility] Address [address] [place] [address] Phone [phone] Care Team Providers Care Book Illustrator Name Role Phone Unavailable Primary Care Provider Unavailabl e Reason for Visit * Reason Comments Pain Pt is scheduled to h ave a root canal tomorrow on broken tooth, c/o pain and swelling today Encounter Details Date Type Department Care Team (Latest Contact Info) Description 09/30/2024 11:30 AM EDT Convenient Care Visit [facility] [address] [place] [address] Jayleen Mcqueen CRNP [address] [place] [address] Dental infection* Allergies Active Allergy Reactions Criticality Noted Date Comments Tramadol 05/28/2016 Lowers the seizure threshold documented as of this encounter (statuses as of 09/30/2024) Medications Aspirin 81 MG Tablet Take 1 [...] THE MORNING 90 Tablet 2 5 Active Amoxicillin-Pot Clavulanate 875-125 MG Oral Tablet (Augmentin)Indic ations:Dental infection Take 1 Tablet by mouth in the morning and 1 Tablet before bedtime. Do all this for 10 days. 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 Jose Antonio Gilmore was [place] from [place] on 10/14/16. During stay he was found [...] rheum, gi? 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 10/05 admit. elev lupus antico + [...] as of this encounter (statuses as of 09/30/2024) Immunizations Name Administration Dates Next Due COVID-19 mRNA, LNP-s, No Pre serve, 2-Dose Series ([employer]) 11/15/2020,10/25/2020 Covid-19, Mrna, Lnp-s, Pf, B ivalent, 30 Mcg, IM, 12 yrs and above ([employer]) 05/01/2022 HPV Vaccine, 9-Valent 09/22/2024,01/25/2016,050 12/2015 Meningococcal Conjugate Vacc ine (Menactra/Menveo) 02/24/2007 Meningococcal MCV4P Conjugat e Vaccine (Menactra) 02/24/2007 Pneumococcal Conjugate Vacci ne, 20-valent ([id number]) 12/13/2021 Seasonal Influenza Vac., MDV , IM, [...] Industry Job Start Date Job End Date [employer]. 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) Not on file Not on file Not on file documented as of this encounter Last Filed Vital Signs Vital Sign Reading Time Taken Comments Blood Pressure 134/82 09/30/2024 11:34 AM EDT Pulse 64 09/30/2024 11:34 AM EDT Temperature 36.7 C (98.1 F) 09/30/2024 11:34 AM E DT Respiratory Rate 18 09/30/2024 11:34 AM EDT Oxygen Saturation 98% 09/30/2024 11:34 AM EDT Inhaled Oxygen Concentration - - Weight 71.2 kg (157 lb) 09/30/2024 11:34 AM EDT Height 170.2 cm (5' 7") 09/30/2024 11:34 AM EDT Body Mass Index 24.59 09/30/2024 11:34 AM EDT documented in this encounter Functional Status * Are you deaf or do you have serious difficulty hearing? Answer Date of Assessment Author No 09/17/2018 12:11 AM Ambar Lema RN * Are you blind or do [...] documented in this encounter Progress Notes * Jayleen Mcqueen CRNP - 09/30/2024 12:16 PM EDT Images from the original note were not included. [facility] Basic Exam Subjective Jose Antonio Gilmore is a 34 year old male that presents to the [facility] with dental pain after a years-old filling must have fallen out. He is supposed to have it cleaned/refilled tomorrow after the filling fell out about a week ago. Yesterday began to have 7/10 pain. He has tried Tylenol OTC w/o relief.. He reports instructed not to take ibuprofen d/t his coumadin. Objective BP 134/82 (BP Site: Left Arm, BP Position: Sitting, BP Cuff Size: Large) | Pulse 64 | Temp 36.7 C(98.1 F) (Tympanic) | Resp 18 | Ht 1.702 m (5' 7") | Wt 71.2 kg (157 lb) | SpO2 98% | BMI 24.59 kg/m | BSA 1.83 m Body mass index is 24.59 kg/m. Review of Systems Constitutional: Negative. HENT: Positive for dental problem and facial swelling. Eyes: Negative. Respiratory: Negative. Cardiovascular: Negative. Gastrointestinal: Negative. Musculoskeletal: Negative. Skin: Negative. Neurological: Negative. Physical Exam Vitals and nursing note reviewed. Constitutional: Appearance: Normal appearance. HENT: Head: Atraumatic. Comments: Area of swelling circled. Right Ear: External ear normal. Left Ear: External ear normal. Nose: Rhinorrhea present. Mouth/Throat: Mouth: Mucous membranes are moist. Pharynx: Oropharynx is clear. Comments: Cavity at gumline of interior side of left lateral upper incisor. Some mild swelling to gums but no abscess. Eyes: Conjunctiva/sclera: Conjunctivae normal. Pupils: Pupils are equal, round, and reactive to light. Neck: Comments: No lymphadenopathy Cardiovascular: Rate and Rhythm: Normal rate. Pulmonary: Effort: Pulmonary effort is normal. Musculoskeletal: Cervical back: Normal range of motion and neck supple. Skin: General: Skin is warm and dry. Neurological: Mental Status: He is alert and oriented to person, place, and time. Past Medical History: Diagnosis Date Acute superficial gastritis without hemorrhage 10/20/2016 Antiphospholipid syndrome ([facility]) 10/20/2016 Aspiration pneumonia of right middle lobe ([facility]) 01/22/2016 Cerebellar infarct ([facility]) 10/08/201610/05 acute? [facility]. R/o pfo Dysthymic disorder 16YO adderal in middle school/ADHD Elevated serum creatinine 09/12/2016 Epileptic spasms ([facility]) 10/26/2015 Fracture of bone, closed 06/26/2006 boxer's fx Glaucoma, open angle 0.8 OU; Xal; FH+;592/593;-4/-4; OCT 10/12 History of 2019 novel coronavirus disease (COVID-19) 12/13/202108/12 Libman Sacks endocarditis ([facility]) 10/20/2016 Migraine without aura with status migrainosus Nonbacterial thrombotic endocarditis 10/14/201610/05 admit [facility] start warfarin Nonintractable epileptic spasms without status epilepticus ([facility]) 10/26/2015 Pulmonary embolism ([facility]) Pulmonary embolism and infarction ([facility]) 05/22/201605/06 [facility] Pulmonary embolus and infarction ([facility]) 10/20/2016 Pulmonary hemorrhage 10/20/2016 Systemic lupus erythematosus ([facility]) 07/23/2018 Plaquenil Varicella without complication 4th grade Warfarin anticoagulation 10/20/2016 Patient Active Problem List Diagnosis Well adult exam Elevated serum creatinine 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 without status epilepticus (HCC) Antiphospholipid syndrome (HCC) Warfarin anticoagulation Acute superficial gastritis without hemorrhage History of pulmonary embolism Lumbar back pain DDD (degenerative disc disease), lumbar Systemic lupus erythematosus (HCC) Chronic rhinitis History of hemoptysis Pulmonary nodules Obesity, Class I, BMI 30.0-34.9 (see actual BMI) Mixed rhinitis History of 2018 novel coronavirus disease (COVID-19) Reactive airway disease without complication Medical marijuana use ILD (interstitial lung disease) (HCC) Primary open angle glaucoma (POAG) of both eyes, mild stage BP Readings from Last 3 Encounters: 09/30/24 134/82 09/28/24 144/78 09/22/24 130/93 Wt Readings from Last 3 Encounters: 09/30/24 71.2 kg (157 lb) 09/28/24 98.5 kg (217 lb 3.2 oz) 09/22/24 98 kg (216 lb) Assessment and plan Dental infection (Primary) - Amoxicillin-Pot Clavulanate 875-125 MG Oral Tablet (Augmentin); Take 1 Tablet by mouth in the morning and 1 Tablet before bedtime. Do all this for 10 days. Encouraged him to follow closely with his dentist. Consider calling them today to let them know he'd been started on augmentin. Should plan to brush after every food or drink that is not water. Could try drinking protein or meal replacement shakes from the other side of the mouth to get something into his stomach. Continue using Tylenol. Could try to get creative with cutting a small strip from lidocaine patchesor using topical pain gel but that these would likely not be very helpful. The most beneficial thing will be getting the infection under control, using heat or ice (whichever feels better), and getting the cavity refilled. Monitor swelling, needs urgent evaluation for swelling that extends up to eye or down into soft tissue of neck/throat and impairs breathing/swallowing. Follow up Follow Up: Return if symptoms worsen or fail to improve. Total time today including reviewing chart before the visit, pertinent labs, imaging reports, face to face time, and documentation time was 15 minutes. The above was discussed and understanding was expressed. SANDRA Luciano documented in this encounter Nursing Notes * Nikia Purcell LPN - 09/30/2024 11:38 AM EDT Jose Antonio Gilmore is a 34 year old male who presents to walk-in clinic today complaining of Chief Complaint Patient presents with Pain Pt is scheduled to have a root canal tomorrow on broken tooth, c/o pain and swelling today Onset/duration: broke tooth 1 week ago, pain 7/10 started yesterday. OTC treatments tried:tylenol Effectiveness: n/a Patient is accompanied by no one for today's visit. documented in this encounter Plan of Treatment Upcoming Encounters Date Type Department Care Team (Late st Contact Info) Description 10/02/2024 12:30 PM EDT [facility] [address] [place] [phone] Vee Thakur [facility] [place] [address] 10/05/2024 6:15 AM EDT Anticoagulation Centralized Clinical Pharmacy Services, Daysi Rueda [address] [place] [address] [address] [place] [address] [facility], [address] [place] [address] 11/12/2024 8:30 AM EDT [facility] [address] [place] [phone] Vargas Valdez PA-C [address] [facility] [place] [address] 01/18/2025 10:40 AM EDT Office Visit Neurology [facility] [place] [address] [facility] [place] [address] Uriah De La Rosa MD [address] [facility] [place] [address] 11/02/2025 4:00 PM EDT Office Visit Family [facility] [address] [place] [address] Mukesh Boyd MD [address] [place] [address] Health Maintenance Due Date Last Done Comments [...] as of this encounter Visit Diagnoses Diagnosis Dental infection- Primary Acute apical periodontitis of pulpal origin documented in this encounter Advance Directives * Full Code (Latest Code Status on File) Date Activated Date Inactivated Comments 09/17/2018 12:49 AM 09/21/2018 6:13 PM This order r eflects the patients wishes and were consensually agreed upon.
--- OUTSIDE RECORDS SUMMARY | 2024-10-01 05:02 | External Medical Summary | Summary of Care ---
Author Name Unknown Organization [facility] Address [address] [place] [address] Phone [phone] Care Team Providers Care Final Inspector Name Role Phone Unavailable Primary Care Provider Unavailabl e Reason for Visit * Reason Onset Date Comments Referral 09/22/2024 Encounter Details Date Type Department Care Team (Late st Contact Info) Description 09/22/2024 Telephone Family Practice [facility] [address] [facility] [place] [address] Mukesh Boyd MD [address] [facility] [place] [address] Referral Allergies Active Allergy Reactions Criticality Noted Date Comments Tramadol 05/28/2016 Lowers the seizure threshold documented as of this encounter (statuses as of 09/23/2024) Medications Aspirin 81 MG Tablet Take 1 [...] as of this encounter (statuses as of 09/23/2024) Active Problems Problem Noted Date Diagnosed Date [...] thrombotic endocarditis 10/14/2016 Overview (11/06/2016): 10/05 admit [facility] start warfarin--lifelong per heme--Keep INR around 2.5 to 3 if possible 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 Jose Antonio Gilmore was [place] on [place]/14/[place]. During stay he was found [...] rheum, gi? Bronchoscopy WNL 05/06 TTE WNL @[facility] documented as of this encounter (statuses as of 09/23/2024) Resolved Problems Problem Noted Date Diagnosed Date Resolved Date Mycobacterium infection 10/27/201812/21 Allergic rhinitis 10/27/2018 01/14/2019 Hemoptysis 09/17/2018 01/11/2024 Nonbacterial thrombotic endocarditis 10/20/2016 10/26/2016 Pulmonary hemorrhage 10/20/2016 019 Pulmonary embolism and infarction 05/22/2016 05/29/2019 Overview (10/26/2016): 05/06 [facility] DX. 10/05 admit. elev lupus [...] as of this encounter (statuses as of 09/23/2024) Immunizations Name Administration Dates Next Due COVID-19 mRNA, LNP-s, No Pre serve, 2-Dose Series (Violet) 11/15/2020,10/25/2020 Covid-19, Mrna, Lnp-s, Pf, B ivalent, 30 Mcg, IM, 12 yrs and above (Violet) 05/01/2022 DTP Vaccine 05/13/1997, 3,1991,10/18,1991 HIB PRP-T, 4 Dose, PF, IM (H iberix, ActHib) 09/12/1992,1991,1991,08/10 HPV Vaccine, 9-Valent 09/22/2024,01/25/2016,12/2015 Hepatitis B, 0-19 yrs 12/30/2002,11/10/1997,04/22 MMR - Measles/Mumps/Rubella Vaccine 05/13/1997,0 09/12/1992 Meningococcal Conjugate Vacc ine (Menactra/Menveo) 02/24/2007 Meningococcal MCV4P Conjugat e Vaccine (Menactra) 02/24/2007 OPV - Polio Virus Vaccine (Oral) 09/12/1992,09/21,1991 Pneumococcal Conjugate Vacci ne, 20-valent ([id number]) 12/13/2021 Seasonal Influenza Vac., MDV , IM, 0.5 mL (Fluzone) 05/20/2016,05/11/2008 Seasonal Influenza, PF, 6 M & above, IM , (FluLaval or Fluzone) 05/01/2022,07/14/2018 Seasonal Influenza, QUAD, wi th Preserv, 6 mons & Above, 0.5 mL, IM 05/01/2022 Seasonal Influenza, Trivalen t, (IIV3), PF, (Fluzone) 09/22/2024 TD - Tetanus/Diptheria (ADULT) 02/01/2004 TD, Preservative Free 02/01/2004 TDAP (age 10 and older)(Boostrix) 11/25/2015 documented as of this encounter Social History Tobacco Use Types Packs/Day Years Used Date Smoking Tobacco: Former Cigarettes 1 8 0 11/20/2003 - 11/20/2011 Smokeless Tobacco: Never Comments:no passive smoke Alcohol Use Standard Drinks/Week Comments Yes 0 (1 standard drink = 0.6 oz pur e alcohol) 1-2 beer/ wk PHQ-2 Answer Date Recorded PHQ Adult Total [...] 09/22/2024 Does the household have a re gular source of income? 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 on file Not on file Not on file documented as of this encounter Functional Status * Are you [...] Ambar Lema RN documented in this encounter Miscellaneous Notes * Telephone Encounter - Carey Shukla OSA - 09/22/2024 6:32 PM EST Will be worked from que * Telephone Encounter - Stephanie Olvera OSA - 09/22/2024 4:36 PM EST Pt is looking for an epilepsy specialist in [place] with referral please call pt to schedule thankyou documented in this encounter Plan of Treatment Upcoming Encounters Date Type Department Care Team (Late st Contact Info) Description 10/02/2024 12:30 PM EDT Laboratory Laboratory, [facility] [address] [place] [phone] Vee Thakur [facility] [address] [place] [address] 10/05/2024 6:15 AM EDT Anticoagulation Centralized Clinical Pharmacy Services, Daysi Rueda [address] [place] [address] [place] [address] [facility], [address] [place] [address] 11/12/2024 8:30 AM EDT Office Visit Rheumatology [facility] [address] [place] [phone] Vargas Valdez PA-C [address] [place] [address] 11/02/2025 4:00 PM EDT Office Visit Family Practice [facility] [address] [place] [address] Mukesh Boyd MD [address] [place] [address] Health Maintenance Due Date Last Done Comments [...] Not on filedocumented as of this encounter Advance Directives * Full Code (Latest Code Status on File) Date Activated Date Inactivated Comments 09/17/2018 12:49 AM 09/21/2018 6:13 PM This order r eflects the patients wishes and were consensually agreed upon.
--- OUTSIDE RECORDS SUMMARY | 2024-10-01 05:03 | External Medical Summary ---
Author Name Unknown Address Unknown Organization [facility] [place] [address] - [address] [place] [address] Laboratory Report Ordering Provider Test Date Status CARLA LEWIS 07/24/2024 12:22:18 Final Standing order for pt/inr. < br/>Please draw pt/inr every 1 to 4 weeks as requested
Results to [facility]

Warfarin Therapy
INR: 2.0-3.0 conventional anticoagulation
INR: 2.5-3.5 high intensity anticoagulation Observation Date Value Abnormality Reference (Units ) Status PT 07/24/2024 12:22:18 31.6 Above high normal 11 .6-15.2 (seconds) Final INR 07/24/2024 12:22:18 3.0 Above high normal 0. 8-1.2 Final Performing Location [facility] - [address] [place] [address]
--- OUTSIDE RECORDS SUMMARY | 2024-10-01 05:03 | External Medical Summary ---
Author Name Unknown Address Unknown Organization [facility] [address] - [address] [place] [address] Laboratory Report Ordering Provider Test Date Status CARLA LEWIS 08/28/2024 11:48:16 Final Standing order for pt/inr. < br/>Please draw pt/inr every 1 to 4 weeks as requested
Results to [facility]

Warfarin Therapy
INR: 2.0-3.0 conventional anticoagulation
INR: 2.5-3.5 high intensity anticoagulation Observation Date Value Abnormality Reference (Units ) Status PT 08/28/2024 11:48:16 35.2 Above high normal 11 .6-15.2 (seconds) Final INR 08/28/2024 11:48:16 3.5 Above high normal 0. 8-1.2 Final Performing Location [facility] - [address] [place] [address]
--- OUTSIDE RECORDS SUMMARY | 2024-10-01 05:03 | External Medical Summary | Summary of Care ---
Author Name Unknown Organization [facility] Address [address] [facility] [place] [address] Phone [phone] Care Team Providers Care Inside Contractor Sales Name Role Phone Unavailable Primary Care Provider Unavailabl e Reason for Visit * Reason Comments Dosage Adjustment Via Phone (anticoag Cl inic) Encounter Details Date Type Department Care Team (Late st Contact Info) Description 08/31/2024 6:15 AM EST Anticoagulation Centralized Clinical Pharmacy Services, Daysi Rueda [address] [place] [address] [place] [address] [facility], [address] [place] [address] Embolic cerebrovascular disease*; Nonbacterial thrombotic endocarditis Allergies Active Allergy Reactions Criticality Noted Date Comments Tramadol 05/28/2016 Lowers the seizure threshold documented as of this encounter (statuses as of 08/31/2024) Medications Aspirin 81 MG Tablet Take 1 [...] before bedtime. 180 Tablet 3 4 Active Molnupiravir 200 MG Oral Capsule Take 4 Capsules by mouth in the morning and 4 Capsules before bedtime. 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 Jose Antonio Gilmore was discharged from [place] on 10/14/[place]. During stay he was found [...] rheum, gi? 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 10/05 admit. elev lupus antico [...] as of this encounter (statuses as of 08/31/2024) Immunizations Name Administration Dates Next Due COVID-19 mRNA, LNP-s, No Pre serve, 2-Dose Series ([employer]) 11/15/2020,10/25/2020 Covid-19, Mrna, Lnp-s, Pf, B ivalent, 30 Mcg, IM, 12 yrs and above (Pfizer) 05/01/2022 HPV Vaccine, 9-Valent 01/25/2016,11/25/2015 Meningococcal Conjugate Vaccine (Menactra/Menveo ) 02/24/2007 Meningococcal MCV4P Conjugate Vaccine (Menactra) 02/24/2007 Pneumococcal Conjugate Vaccine, 20-valent (Prevn ar20) 12/13/2021 Seasonal Influenza Vac., MDV, IM, 0.5 mL (Fluzon e) 05/20/2016,05/11/2008 Seasonal Influenza, PF, 6 M & above, IM , (FluLaval or Fluzone) 05/01/2022,07/14/2018 Seasonal Influenza, QUAD, wi th Preserv, 6 mons & Above, 0.5 mL, IM 05/01/2022 TD, Preservative Free 02/01/2004 TDAP (age 10 and older)(Boostrix) 11/25/2015 documented as of this encounter Social History Tobacco Use Types Packs/Day Years Used Date Smoking Tobacco: Former Cigarettes 1 8 0 11/20/2003 - 11/20/2011 Smokeless Tobacco: Never Comments:no passive smoke Alcohol Use Standard Drinks/Week Comments Yes 0 (1 standard drink = 0.6 oz pur e alcohol) 1-2 beer/ wk PHQ-2 Answer Date Recorded PHQ-2 Score -1 10/03/2018 Sex and Gender Information Value Date Recorded Sex Assigned at Not on file Legal Sex Male 6:02 AM EST Gender Identity Not on file Sexual Orientation Not on file Occupation Industry Job Start Date Job End [...] Entry Date Author No 09/17/2018 12:11 AM EST Ambar Culp RN documented in this encounter Progress Notes * Eunice Bolton CPhT - 08/31/2024 10:49 AM EST Contacts Contact Date/Time Type Contact Phone/Fax 08/31/2024 10:48 AM EST Phone (Outgoing) Jose Antonio Gilmore (Self) [phone] (M) Spoke to Patient Subjective Patient Findings Negatives: Signs/symptoms of bleeding, Change in health, Change in activity, Upcoming invasive procedure, Missed doses, Extra doses, Change in medications, Change in diet/appetite, Bruising Advised patient to contact Anticoagulation Clinic if any unusual bruising or bleeding, recent illness, changes in medication, or questions/concerns. PT/INR results, Coumadin dose instructions, and next PT/INR date communicated as noted by Pharmacist: Zina Bolton CPhT 08/31/2024, 10:49 AM * Angela Santiago RPh - 08/31/2024 10:03 AM EST Coumadin Clinic (region specific) Objective Current Warfarin Dose As of 08/31/2024 Warfarin maintenance plan: 7.5 mg (7.5 mg x 1) every Mon, Wed, Fri; 11.25 mg (7.5 mg x 1.5) all other days INR Result As of 08/31/2024 INR goal: 2.5-3.5 INR used for dosin.5 (08/28/2024) Assessment & Plan Warfarin Plan As of 08/31/2024 Full warfarin instructions: 7.5 mg every Mon, Wed, Fri; 11.25 mg all other days No change documented: Angela Santiago RPh Next INR check: 10/02/2024 Repeat PT/INR in 5 week(s) Weekly dose: not changed Additional Dosing Information: Deidre Cunningham to contact patient with dose instructions as noted. Angela Santiago RPh 08/31/2024, 10:03 AM documented in this encounter Plan of Treatment Upcoming Encounters Date Type Department Care Team (Late st Contact Info) Description 09/22/2024 4:00 PM EST Office Visit Family Practice [facility] [address] [place] [address] Mukesh Boyd MD 132 [place] [address] 10/02/2024 12:30 PM EDT Laboratory Laboratory, [facility] [place] [phone] [facility] [place] [address] 10/05/2024 6:15 AM EDT Anticoagulation Centralized Clinical Pharmacy Services, Daysi Rueda [address] [place] [address] [place] [address] [facility], [address] [place] [address] 11/12/2024 8:30 AM EDT Office Visit Rheumatology [facility] [address] [place] [phone] Vargas Valdez PA-C [facility] [place] [address] 02/01/2025 12:30 PM EDT Office Visit Pulmonary Medicine, [facility] [address] [place] [address] Richie Jackson MD [address] [place] [address] Health Maintenance Due Date Last Done Comments HIV Screening 2006 HPV (Gardasil) Vaccine (3 - Male 3-dose series) 05/27/2016 01/25/2016, 11/25/2015 Depression Screening 10/04/2019 10/03/2018 COVID-19 Vaccine ( season) 2024 05/01/2022, 11/15/2020, 10/25/2020 Influenza Vaccine (FLU shot) (#1) 2024 05/01/2022, 05/01/2022, 07/14/2018, Additional history exists DTap/Tdap Vaccines (7 - Td or Tdap) [...] 18 Years and 19+ Years) Completed 12/13/2021 documented as of this encounter Medical Devices Not on filedocumented as of this encounter Visit Diagnoses Diagnosis Embolic cerebrovascular disease- Primary Cerebral embolism without mention of cerebral infarction Nonbacterial thrombotic endocarditis Endocarditis, valve unspecified, unspecified cause documented in this encounter Advance Directives * Full Code (Latest Code Status on File) Date Activated Date Inactivated Comments 09/17/2018 12:49 AM 09/21/2018 6:13 PM This order r eflects the patients wishes and were consensually agreed upon.
--- OUTSIDE RECORDS SUMMARY | 2024-10-01 05:03 | External Medical Summary | Summary of Care ---
Author Name Unknown Organization [facility] Address [address] [place] [address] Phone [phone] Care Team Providers Care Validation Analyst Name Role Phone Unavailable Primary Care Provider Unavailabl e Reason for Visit * Reason Onset Date Comments Referral 09/22/2024 Encounter Details Date Type Department Care Team (Late st Contact Info) Description 09/22/2024 Telephone Family Practice [facility] [address] [facility] [place] [address] Mukesh Boyd MD [address] [facility] [place] [address] Referral Allergies Active Allergy Reactions Criticality Noted [...] thrombotic endocarditis 10/14/2016 Overview (11/06/2016): 10/05 admit [facility] start warfarin--lifelong per heme--Keep INR around 2.5 to 3 if possible 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 [facility]. During stay he was found [...] rheum, gi? 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 10/05 admit. elev lupus [...] mRNA, LNP-s, No Pre serve, 2-Dose Series ([employer]) 11/15/2020,10/25/2020 Covid-19, Mrna, Lnp-s, Pf, B ivalent, 30 Mcg, IM, 12 yrs and above ([employer]otte) 05/01/2022 DTP Vaccine 05/13/1997, 3,1991,10/18,1991 HIB PRP-T, 4 Dose, PF, IM (H iberix, ActHib) 09/12/1992,1991,1991,08/10 HPV Vaccine, 9-Valent 09/22/2024,01/25/2016,12/2015 Hepatitis B, 0-19 yrs 12/30/2002,11/10/1997,04/22 MMR - Measles/Mumps/Rubella Vaccine 05/13/1997,0 09/12/1992 Meningococcal Conjugate Vacc ine (Menactra/Menveo) 02/24/2007 Meningococcal MCV4P Conjugat e Vaccine (Menactra) 02/24/2007 OPV - Polio Virus Vaccine (Oral) 09/12/1992,09/21,1991 Pneumococcal Conjugate Vacci ne, 20-valent ([id number]) 12/13/2021 Seasonal Influenza Vac., MDV , IM, [...] file Not on file [employer] ([facility]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) Not on file Not on [...] is looking for an epilepsy specialist in [place] with referral please call pt to schedule thankyou documented in this encounter Plan of Treatment Upcoming Encounters Date Type Department Care Team (Late st Contact Info) Description 10/02/2024 12:30 PM EDT Laboratory Laboratory, [facility] [address] [place] [phone] Vee Thakur [facility] [address] [place] [address] 10/05/2024 6:15 AM EDT Anticoagulation Centralized Clinical Pharmacy Services, Daysi Rueda [address] [place] [address] [place] [address] [facility], [address] [place] [address] 11/12/2024 8:30 AM EDT Office Visit Rheumatology [facility] [address] [place] [phone] Vargas Valdez PA-C [address] [place] [address] 11/02/2025 4:00 PM EDT Office Visit Family Practice [facility] [address] [place] [address] Mukesh Boyd MD [address] [place] [address] Health Maintenance Due Date Last Done Comments [...]
--- OUTSIDE RECORDS SUMMARY | 2024-10-01 05:03 | External Medical Summary | Summary of Care ---
Author Name Unknown Organization [facility] Address [address] [place] [address] Phone [phone] Care Team Providers Care Anesthesiology Medical Doctor Name Role Phone Mukesh Boyd MD Primary Care Provider + Reason for Visit * Reason Comments Outpatient Testing Encounter Details Date Type Department Care Team (Latest Contact Info) Description 06/17/2024 11:00 AM EST Laboratory Laboratory, [facility] [address] [place] [address] [facility] [address] [place] [address] Anticoagulation management encounter Allergies Active Allergy Reactions Criticality Noted Date Comments Tramadol 05/28/2016 Lowers the seizure threshold documented as of this encounter (statuses as of 06/17/2024) Medications Aspirin 81 MG Tablet Take 1 [...] for Muscle spasms. 30 Tablet 4 Active Atorvastatin Calcium 40 MG Oral Tablet (Lipitor) Take 1 Tablet by mouth in the morning. 90 Tablet 1 4 Active Warfarin Sodium 7.5 MG Oral [...] before bedtime. 180 Tablet 3 4 Active documented as of this encounter (statuses as of 06/17/2024) Active Problems Problem Noted Date Diagnosed Date [...] thrombotic endocarditis 10/14/2016 Overview (11/06/2016): 10/[address] 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. Jose Antonio Gilmore was discharged from [place] on 10/14/16. During stay he was found [...] rheum, gi? Bronchoscopy WNL 05/06 TTE WNL @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 DX. 10/05 admit. elev lupus antico [...] as of this encounter (statuses as of 06/17/2024) Immunizations Name Administration Dates Next Due COVID-19 mRNA, LNP-s, No Pre serve, 2-Dose Series ([employer]) 11/15/2020,10/25/2020 Covid-19, Mrna, Lnp-s, Pf, B ivalent, [...] Ambar Lema RN documented in this encounter Plan of Treatment Upcoming Encounters Date Type Department Care Team (Late st Contact Info) Description 06/19/2024 6:15 AM EST Anticoagulation Centralized Clinical Pharmacy Services, Daysi Rueda [address] [place] [address] [place] [address] [place] [address] 09/22/2024 4:00 PM EST Office Visit Family Practice [facility] 132 [facility] [place] [address] Mukesh Boyd MD [address] [place] [address] 11/12/2024 8:30 AM EDT Office Visit Rheumatology [place] [phone] [employer] [place] [address] Vargas Valdez PA-C [address] [employer] [place] [address] 02/01/2025 12:20 PM EDT Office Visit Pulmonary Medicine, [facility] 132 [facility] [place] [address] Richie Jackson MD [address] [place] [address] Pending Results Name Type Priority Associated Diagnoses Date /Time PT INR Lab Routine Anticoagulation management encounter 06/17/2024 11:11 AM EST Health Maintenance Due Date Last Done Comments [...] 5 Years) and At-Risk Patients (6 to 64 Years) Completed 12/13/2021 documented as of this encounter Medical Devices Not on filedocumented as of this encounter Visit Diagnoses Diagnosis Anticoagulation management encounter Encounter for therapeutic drug monitoring documented in this encounter Advance Directives * Full Code (Latest Code Status on File) Date Activated Date Inactivated Comments 09/17/2018 12:49 AM 09/21/2018 6:13 PM This order r eflects the patients wishes and were consensually agreed upon. Care Teams Anesthesiology Medical Doctor Relationship Specialty Start Date End Date Mukesh Boyd MD [address] [place] [address] PCP - General Family Medicine 10/28/14 documented as of this encounter
--- OUTSIDE RECORDS SUMMARY | 2024-10-01 05:03 | External Medical Summary | Summary of Care ---
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 [facility] This patient already has care established with Neurology. Do not place this order. Please use Ask A Doc to expedite care. Acknowledge Is this referral being placed for insurance purposes ONLY No, patient needs appointment [facility] REFERRAL QUESTIONS Seizure If this is for an initial diagnosis of a new seizure disorder, please place an order for an updated EEG Routine [[id number]] Acknowledge Comments Pt with hx epilepsy on Vimpat & Lamotrigine, no seizures but big problem w/short term memory on Vimpat. Had inc irritability on Keppra in past. Intrerested in talking over options with seizure specialist, Dr Estrella rodriguez as well. 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 30 mL 11 09/28/19 20 Active Albuterol Sulfate HFA 108 (90 Base) MCG/ACT Inhalation Aerosol SolutionIndicat ions:Hemoptysis ,History of pulmonary embolism Inhale by mouth 2 Puffs every 4 hours as needed for Wheezing or Dyspnea. 18 g 1 05/03/20 22 Active Rhofade 1 % External Cream (Oxymetazoline HCl) Apply topically to affected area daily . 06/13/20 21 Active Dulera 100-5 MCG/ACT Inhalation Aerosol (Mometasone-For moterol) Inhale 2 Puffs by mouth in the morning and 2 Puffs before bedtime. 13 g 2 08/21/19 24 Active Latanoprost 0.005 % Ophthalmic Solution (Xalatan) Instill 1 Drop into both eyes at bedtime. 10/09/19 24 Active Cyclobenzaprine HCl 10 MG Oral Tablet (Flexeril)Indic ations:Back spasm Take 1 Tablet by mouth at bedtime as needed for Muscle spasms. 30 Tablet 01/10/20 24 Active Warfarin Sodium 7.5 MG Oral Tablet (Coumadin)Indic ations:Pulmonar y embolism and infarction (HCC) TAKE 1 TO 1 & 1/2 TABS BY MOUTH DAILY IN THE MORNING OR DIRECTED BY COUMADIN CLINIC 180 Tablet 1 03/16/20 24 Active Hydroxychloroqu ine Sulfate 200 MG Oral Tablet (Plaquenil) TAKE 2 TABLETS BY MOUTH AT BEDTIME 180 Tablet 2 04/01/20 24 Active lamoTRIgine 100 MG Oral Tablet (LaMICtal) TAKE 3 TABLETS BY MOUTH TWICE A DAY 540 Tablet 1 05/28/20 24 Active Lacosamide 50 MG Oral Tablet (Vimpat)Indicat ions:Nonintract able epileptic spasms without status epilepticus (HCC) TAKE 1 TABLET BY MOUTH IN THE MORNING AND BEFORE BEDTIME 180 Tablet 1 06/01/20 24 Active Lacosamide 50 MG Oral Tablet (Vimpat)Indicat ions:Nonintract able epileptic spasms without status epilepticus (HCC) Take 1 Tablet by mouth in the morning and 1 Tablet before bedtime. 180 Tablet 3 05/29/20 24 Active Atorvastatin Calcium 40 MG Oral Tablet (Lipitor) TAKE 1 TABLET BY MOUTH EVERY DAY IN THE MORNING 90 Tablet 2 08/12/19 25 Active Molnupiravir 200 MG Oral Capsule Take 4 Capsules by mouth in the morning and 4 Capsules before bedtime. 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 Jose Antonio Gilmore was discharged from [place] on 10/14/16. During stay he was found [...] rheum, gi? 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 10/05 admit. elev lupus antico + [...] mRNA, LNP-s, No Pre serve, 2-Dose Series (Enswers) 11/15/2020,10/25/2020 Covid-19, Mrna, Lnp-s, Pf, B ivalent, 30 Mcg, IM, 12 yrs and above (Enswers) 05/01/2022 HPV Vaccine, 9-Valent 09/22/2024,01/25/2016,12/2015 Meningococcal Conjugate Vacc ine (Menactra/Menveo) 02/24/2007 Meningococcal MCV4P Conjugat e Vaccine (Menactra) 02/24/2007 Pneumococcal Conjugate Vacci ne, 20-valent ([id number]) 12/13/2021 Seasonal Influenza Vac., MDV , IM, [...] Industry Job Start Date Job End Date [employer]. 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) Not on file Not on file Not on file documented as of this encounter Last Filed Vital Signs Vital Sign Reading Time Taken Comments Blood Pressure 130/93 09/22/2024 3:57 PM EST Pulse 87 09/22/2024 3:57 PM EST Temperature 36.2 C (97.1 F) 09/22/2024 3:57 PM ES T Respiratory Rate 18 09/22/2024 3:57 PM EST Oxygen Saturation - - Inhaled Oxygen Concentration - - Weight 98 kg (216 lb) 09/22/2024 3:57 PM EST Height 170.2 cm (5' 7") 09/22/2024 3:57 PM EST Body Mass Index 33.83 09/22/2024 3:57 PM EST documented in this encounter Functional Status * [...] documented in this encounter Progress Notes * Mukesh Boyd MD - 09/22/2024 5:21 PM EST Images from the original note were not included. Subjective Jose Antonio Gilmore is a 34 year old male presenting for Physical-Exam (Pt here for cpe, denies any concerns) and Medication Administration (Flu and/or Pneumo Inj) History of Present Illness The patient, with a history of epilepsy, presents with concerns about short-term memory issues which he attributes to his current medication, Vimpat. He reports that while the Vimpat has been effective in controlling his seizures and has not caused the anger and anxiety he experienced with Keppra, the impact on his short-term memory has been significant and frustrating. He describes his memory as"hot garbage" and reports feeling "dumb" on some days. In addition to his epilepsy, the patient has a long-standing vuong with clinical depression since teens. He expresses interest in seeing a therapist to help manage his mental health. Doesn't want totry Rx at this time. No active SI The patient also mentions occasional difficulty urinating, though it is unclear if this is a side effect of his current medication. He reports no issues with nocturia. No dysuria. The patient has a history of liver issues, with slightly high liver tests over the past five to sixyears. He underwent a liver biopsy in the past at [facility], but isn't sure of results given. He reports taking Tylenol approximately every other day, 1000mg. 1-2 drinks/wk. 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 He is a daily user of medical marijuana. Objective Blood pressure 130/93, pulse 87, temperature 97.1 F (36.2 C), resp. rate 18, height 5' 7" (1.702 m), weight 216 lb (98 kg). Physical Exam Physical: BP 130/93 | Pulse 87 | Temp 97.1 F (36.2 C) | Resp 18 | Ht 5' 7" (1.702 m) | Wt 216 lb (98 kg) | BMI 33.83 kg/m | BSA 2.15 m General-No apparent Distress Head, Eyes, Ears, Nose, Throat--Normocephalic, atraumatic Neck-Supple Lymph-no lymphadenopathy Lungs-Clear to Auscultation bilaterally Cardiovascular--Regular rate & Rhythm, +s1, s2, no murmurs Abdomen-soft, nontender, nondistended + bowel sounds Extremities--no edema Neuro-alert & oriented x3 Results LABS Cholesterol: within normal limits (Fall 2023) Blood glucose: within normal limits (Fall 2023) Kidney function: within normal limits (Fall 2023) Electrolytes: within normal limits (Fall 2023) Liver function tests: slightly elevated but stable (Fall 2023) Celiac disease screening: normal (2017) Hepatitis screening: negative (multiple times) PATHOLOGY Liver biopsy: no abnormalities Assessment and Plan Assessment & Plan Epilepsy On lamotrigine and Vimpat with no seizures. Significant memory issues with Vimpat. Previous irritability with Keppra. Interested in specialist consultation for side effect management. - Refer to epilepsy specialist at [place] office for consultation and management, as per Dr De La Rosa's suggestion. Depression Clinical depression High depression screening score, denies suicidal ideation. Prefers therapy overnew medications. - Email contact information for therapist Kavita Domínguez at [facility]. - Advise to contact family practice nurse practitioner to set up therapy appointment. - Offer referral to telemedicine therapists if insurance issues arise. Liver function abnormalities Slightly elevated liver function tests with no specific diagnosis. Possible autoimmune liver irritation or nonalcoholic fatty liver disease. Minimal alcohol consumption and safe Tylenol use. Discussed minimizing liver strain. - Advise to minimize alcohol consumption and avoid excessive Tylenol and Advil. - Recommend avoiding untested supplements and herbs. Preventive care Due for third HPV vaccine dose, interrupted by seizures in 2016. Up to date on other vaccinations and screenings. Discussed benefits of completing HPV series. - Administer third dose of HPV vaccine. 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 | For: Return with Physician Time: I spent a total of 30-39 minutes (exact time 32 mins) on the date of service in preparation, delivery, and documentation of the care provided to Jose Antonio Gilmore excluding any time spent in the performance of separately billed services. Text in this note was generated using an ambient documentation service. I discussed the use of a device to record and summarize our discussion today. All persons present during the encounter consented to its use. * Elinor Castle LPN - 09/22/2024 3:59 PM EST Medical Marijuana Documentation Certifying provider: Unknown Authorized Dispensary: [facility] Certified Condition(s): Epilepsy and lupus Dosage product provided? Vaporization Dose: Unknown Active ingredient: THC/CBD PRE - ADMINISTRATION DOCUMENTATION Are you experiencing any cold symptoms or fever? No Have you had Guillain-Woodhull Syndrome (an illness that causes paralysis) within the last 6 weeks? No Have you had the flu shot in the past? YES Have you ever had a reaction to the flu shot? No Elinor Castle LPN, 09/22/2024 4:02 PM Immunization Administration Documentation Time Out Procedure Performed: Yes Patient Identified (Ask Name/Date of ): Yes Does the patient have a fever greater than 101 degrees today? No Patient allergic to latex? No VFC Stock: No Immunization(s) verified: Yes, Immunization Name: Flu, VIS Sheet(s) given: Yes Verified Side and Site: Yes Verified Shot(s) with Parent(s)/Patient: Yes documented in this encounter Nursing Notes * Elinor Castle LPN - 09/22/2024 3:57 PM EST The patient has been properly identified by confirmation of name and date of . Chief Complaint Patient presents with Physical-Exam Pt here for cpe, denies any concerns documented in this encounter Plan of Treatment Upcoming Encounters Date Type Department Care Team (Late st Contact Info) Description 10/02/2024 12:30 PM EDT Laboratory Laboratory, [facility] [address] [place] [phone] [facility] [address] [place] [address] 10/05/2024 6:15 AM EDT Anticoagulation Centralized Clinical Pharmacy Services, Daysi Rueda [address] [place] [address] [place] [address] [facility], [address] [place] [address] 11/12/2024 8:30 AM EDT Office Visit Rheumatology [facility] [address] [phone] Vargas Valdez PA-C [address] [place] [address] [place] [address] 11/02/2025 4:00 PM EDT Office Visit Family Practice 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) Need for HPV vaccination Need for prophylactic vaccination and inoculation against other viral diseases ILD (interstitial lung disease) (HCC) Postinflammatory pulmonary fibrosis Uncomplicated asthma, unspecified asthma severity, unspecified whether persistent Systemic lupus erythematosus, unspecified SLE type, unspecified organ involvement status (HCC) Primary open angle glaucoma (POAG) of both eyes, mild stage documented in this encounter Advance Directives * Full Code (Latest Code Status on File) Date Activated Date Inactivated Comments 09/17/2018 12:49 AM 09/21/2018 6:13 PM This order r eflects the patients wishes and were consensually agreed upon.
--- OUTSIDE RECORDS SUMMARY | 2024-10-01 05:03 | External Medical Summary | Summary of Care ---
Author Name Unknown Organization [facility] Address [address] [facility] [place] [address] Phone [phone] Care Team Providers Care Automotive Mechanic Name Role Phone Mukesh Boyd MD Primary Care Provider + Reason for Visit * Reason Comments Dosage Adjustment Via Phone (anticoag Cl inic) Encounter Details Date Type Department Care Team (Late st Contact Info) Description 06/19/2024 6:15 AM EST Anticoagulation [facility], Daysi Rueda [address] [place] [address] [place] [address] [facility], [address] [place] [address] Embolic cerebrovascular disease*; Nonbacterial thrombotic endocarditis Allergies Active Allergy Reactions Criticality Noted Date Comments Tramadol 05/28/2016 Lowers the seizure threshold documented as of this encounter (statuses as of 06/19/2024) Medications Aspirin 81 MG Tablet Take 1 [...] as of this encounter (statuses as of 06/19/2024) Active Problems Problem Noted Date Diagnosed Date [...] endocarditis 10/14/2016 Overview (11/06/2016): 10/05 admit [facility] start warfarin--lifelong per heme--Keep INR around 2.5 to 3 if possible 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 Jose Antonio Gilmore was discharged from [place] on 10/14/16. During stay he was found [...] gi? 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 10/05 admit. elev lupus antico [...] as of this encounter (statuses as of 06/19/2024) Immunizations Name Administration Dates Next Due COVID-19 mRNA, LNP-s, No Pre serve, 2-Dose Series (Zannel) 11/15/2020,10/25/2020 Covid-19, Mrna, Lnp-s, Pf, B ivalent, 30 Mcg, IM, 12 yrs and above (Zannel) 05/01/2022 HPV Vaccine, 9-Valent 01/25/2016,11/25/2015 Meningococcal Conjugate [...] Industry Job Start Date Job End Date [employer]. Not on file Not on file Not [...] documented in this encounter Progress Notes * Prasanna Fraga CPhT - 06/19/2024 9:34 AM EST Contacts Contact Date/Time Type Contact Phone/Fax 06/19/2024 09:32 AM EST Phone (Outgoing) Jose Antonio Gilmore (Self) [phone] (M) Spoke to Patient Subjective Patient Findings [...] PT/INR date communicated as noted by Pharmacist: Yes PRASANNA FRAGA CPhT 06/19/2024, 9:34 AM * Angela Santiago RPh - 06/19/2024 9:04 AM EST Coumadin Clinic (region specific) Objective Current Warfarin Dose As of 06/19/2024 Warfarin maintenance plan: 7.5 mg (7.5 mg x 1) every Mon, Wed, Fri; 11.25 mg (7.5 mg x 1.5) all other days INR Result As of 06/19/2024 INR goal: 2.5-3.5 INR used for dosin.7 (06/17/2024) Assessment & Plan Warfarin Plan As of 06/19/2024 Full warfarin instructions: 06/19: 3.75 mg; Otherwise 7.5 mg every Mon, Wed, Fri; 11.25 mg all other days Next INR check: 07/20/2024 Repeat PT/INR in 4.5 week(s) Weekly dose: not changed Additional Dosing Information: Deidre Cunningham to contact patient with dose instructions as noted. Angela Santiago RPh 06/19/2024, 9:04 AM documented in this encounter Plan of Treatment Upcoming Encounters Date Type Department Care Team (Late st Contact Info) Description 07/20/2024 11:10 AM EST Laboratory Laboratory, [facility] [address] [facility] [place] [phone] Vee [facility] [address] [facility] [place] [address] 07/21/2024 6:15 AM EST Anticoagulation Centralized Clinical Pharmacy Services, Daysi Rueda [address] [place] [address] [place] [address] [facility], [address] [place] [address] 09/22/2024 4:00 PM EST Office Visit Family Practice [facility] [address] [facility] [place] [address] Mukesh Boyd MD [address] [facility] [place] [address] 11/12/2024 8:30 AM EDT Office Visit Rheumatology [place] [phone] [facility] [place] [address] Vargas Valdez PA-C [address] [facility] [place] [address] 02/01/2025 12:20 PM EDT Office Visit Pulmonary Medicine, [facility] 132 [facility] [place] [address] Richie Jackson MD [address] [place] [address] Health Maintenance Due Date Last Done Comments [...] and were consensually agreed upon. Care Teams Automotive Mechanic Relationship Specialty Start Date End Date Mukesh Boyd MD [address] [place] [address] PCP - General Family Medicine 10/28/14 documented as of this encounter
--- OUTSIDE RECORDS SUMMARY | 2024-10-01 05:03 | External Medical Summary | Summary of Care ---
Author Name Unknown Organization [facility] Address [address] [place] [address] Phone [phone] Care Team Providers Care Territory Manager Name Role Phone Unavailable Primary Care Provider Unavailabl e Reason for Visit * Reason Comments eRx-Medication Refill Encounter Details Date Type Department Care Team (Late st Contact Info) Description 08/12/2024 Refill Family Practice [facility] [address] [facility] [address] Mukesh Polk MD [address] [facility] [address] Allergies Active Allergy Reactions Criticality Noted Date Comments Tramadol 05/28/2016 Lowers the seizure threshold documented as of this encounter (statuses as of 08/12/2024) Medications Aspirin 81 MG Tablet Take 1 [...] bedtime. 180 Tablet 3 05/29/20 24 Active Molnupiravir 200 MG Oral Capsule Take 4 Capsules by mouth in the morning and 4 Capsules before bedtime. 40 Capsule 07/14/20 24 Active Atorvastatin Calcium 40 MG Oral Tablet (Lipitor) TAKE 1 TABLET BY MOUTH EVERY DAY IN THE MORNING 90 Tablet 2 08/12/19 25 Active Atorvastatin Calcium 40 MG Oral Tablet (Lipitor) Take 1 Tablet by mouth in the morning. 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 Jose Antonio Gilmore was discharged from [place] on 10/14/16. During stay he was found [...] rheum, gi? 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 / admit. elev lupus antico + cardiolipin Epileptic [...] as of this encounter (statuses as of 08/12/2024) Immunizations Name Administration Dates Next Due COVID-19 mRNA, LNP-s, No Pre serve, 2-Dose Series ([employer]) 11/15/2020,10/25/2020 Covid-19, Mrna, Lnp-s, Pf, B ivalent, 30 Mcg, IM, 12 yrs and above ([employer]) 05/01/2022 HPV Vaccine, 9-Valent 01/25/2016,11/25/2015 Meningococcal Conjugate [...] Industry Job Start Date Job End Date [employer]. Not on file Not on file [...] Ambar Culp RN documented in this encounter Miscellaneous Notes * Telephone Encounter - Antonietta Hughes [facility] - 08/12/2024 10:16 AM EST Signed Prescriptions: Disp Refills Atorvastatin Calcium 40 MG Oral Tablet (Li*90 Tab*2 Sig: TAKE 1 TABLET BY MOUTH EVERY DAY IN THE MORNINGAuthorizing Provider: MUKESH POLK User: ANTONIETTA HUGHES documented in this encounter Plan of Treatment Upcoming Encounters Date Type Department Care Team (Late st Contact Info) Description 08/28/2024 12:30 PM EST Laboratory Laboratory, [facility] [address] [place] [address] Vee Thakur [address] [place] [address] 08/31/2024 6:15 AM EST Anticoagulation [facility] Clinical Pharmacy Services, [address] [place] [address] [place] [address] 09/22/2024 4:00 PM EST Office Visit Family Practice [facility] [address] [place] [address] Mukesh Polk MD 132 [place] [address] 11/12/2024 8:30 AM EDT Office Visit Rheumatology [facility] [address] [place] [phone] Vargas Valdez PA-C [address] [facility] [place] [address] 02/01/2025 12:20 PM EDT Office Visit Pulmonary Medicine, [facility] [address] [place] [address] Richie Jackson MD [address] [place] [address] Health Maintenance Due Date Last Done Comments [...]
--- OUTSIDE RECORDS SUMMARY | 2024-10-01 05:03 | External Medical Summary | Summary of Care ---
Author Name Unknown Organization [facility] Address [address] [place] [address] Phone [phone] Care Team Providers Care Process Engineering Intern Name Role Phone Unavailable Primary Care Provider Unavailabl e Reason for Visit * Reason Comments Outpatient Testing Encounter Details Date Type Department Care Team (Latest Contact Info) Description 07/24/2024 12:30 PM EST Laboratory Laboratory, [facility] [address] [place] [address] [facility] [address] [place] [address] Anticoagulation management encounter Allergies Active Allergy Reactions Criticality Noted Date Comments Tramadol 05/28/2016 Lowers the seizure threshold documented as of this encounter (statuses as of 07/24/2024) Medications Aspirin 81 MG Tablet Take 1 [...] Capsules before bedtime. 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 Jose Antonio Gilmore was discharged from [place] on 10/14/16. During stay he was found [...] rheum, gi? 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 10/05 admit. elev lupus [...] as of this encounter (statuses as of 07/24/2024) Immunizations Name Administration Dates Next Due COVID-19 mRNA, LNP-s, No Pre serve, 2-Dose Series ([employer]) 11/15/2020,10/25/2020 Covid-19, Mrna, Lnp-s, Pf, B ivalent, [...] Industry Job Start Date Job End Date [employer]. Not on file Not on file [...] Entry Date Author No 09/17/2018 12:11 AM Amabr Lema RN documented in this encounter Plan of Treatment Upcoming Encounters Date Type Department Care Team (Late st Contact Info) Description 07/27/2024 6:15 AM EST Anticoagulation [facility], Daysi Rueda [address] [place] [address] [place] [address] [place] [address] 09/22/2024 4:00 PM EST Office Visit Family Practice [facility] 132 [facility] [place] [address] Mukesh Boyd MD 132 [facility] [place] [address] 11/12/2024 8:30 AM EDT Office Visit Rheumatology [place] [address] [address] [place] [address] Vargas Valdez PA-C [facility] [employer] [place] [address] 02/01/2025 12:20 PM EDT Office Visit Pulmonary Medicine, [facility] 132 [facility] [place] [address] Richie Jackson MD [address] [place] [address] Pending Results Name Type Priority Associated Diagnoses Date /Time PT INR Lab Routine Anticoagulation management encounter 07/24/2024 12:22 PM EST Health Maintenance Due Date Last Done [...]
--- OUTSIDE RECORDS SUMMARY | 2024-10-01 05:03 | External Medical Summary | Summary of Care ---
Author Name Unknown Organization [facility] Address [address] [place] [address] Phone [phone] Care Team Providers Care International Affairs Vice President Name Role Phone Unavailable Primary Care Provider Unavailabl e Reason for Visit * Reason Comments Outpatient Testing Encounter Details Date Type Department Care Team (Latest Contact Info) Description 08/28/2024 12:30 PM EST Laboratory Laboratory, [facility] [address] [place] [address] [facility] [address] [place] [address] Anticoagulation management encounter Allergies Active Allergy Reactions Criticality Noted Date Comments Tramadol 05/28/2016 Lowers the seizure threshold documented as of this encounter (statuses as of 08/28/2024) Medications Aspirin 81 MG Tablet Take 1 [...] as of this encounter (statuses as of 08/28/2024) Active Problems Problem Noted Date Diagnosed Date [...] thrombotic endocarditis 10/14/2016 Overview (11/06/2016): 10/05 admit [facility] start warfarin--lifelong per heme--Keep INR around 2.5 to 3 if possible 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 Jose Antonio Gilmore was discharged from [place] on 10/14/16. During stay he was found [...] rheum, gi? 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 10/05 admit. elev [...] as of this encounter (statuses as of 08/28/2024) Immunizations Name Administration Dates Next Due COVID-19 mRNA, LNP-s, No Pre serve, 2-Dose Series ([employer]) 11/15/2020,10/25/2020 Covid-19, Mrna, Lnp-s, Pf, B ivalent, [...] Anticoagulation [facility], Daysi Rueda [address] [place] [address] [place] [address] [facility], [address] [place] [address] 09/22/2024 4:00 PM EST Office Visit Family Practice [facility] 132 [facility] [place] [address] Mukesh Boyd MD 132 [facility] [place] [address] 11/12/2024 8:30 AM EDT Office Visit Rheumatology [facility] 132 [facility] [place] [phone] Vargas Valdez PA-C [address] [place] [address] [place] [address] 02/01/2025 12:30 PM EDT Office Visit Pulmonary Medicine, [facility] 132 [facility] [place] [address] Richie Jackson MD [address] [place] [address] Health Maintenance Due Date Last Done Comments [...] Not on filedocumented as of this encounter Procedures Procedure Name Priority Date/Time Associated Diagnosis Comments PT INR Routine 08/28/2024 11:48 AM EST Anticoagulation management encounter documented in this encounter Results * (ABNORMAL) PT INR (08/28/2024 11:48 AM EST) Prothrombin Time 35.2(H) 11.6 - 15.2 seconds 08/28/2024 12:23 PM EST [facility] INR 3.5(H) 0.8 - 1.2 08/28/2024 12:23 PM EST [facility] Blood Venous blood specimen / Unknown Venipuncture / Unknown 08/28/2024 11:48 AM EST 08/28/2024 11:48 AM EST Narrative [facility] - 08/28/2024 12:23 PM EST Warfarin Therapy INR: 2.0-3.0 conventional anticoagulation INR: 2.5-3.5 high intensity anticoagulation us Angela Santiago [facility] LAB BLOOD ORDERABLES Final R esult [facility]10 132 [facility] [place] [address] documented in this encounter Visit Diagnoses Diagnosis Anticoagulation management encounter Encounter for therapeutic drug monitoring documented in this encounter Advance Directives * Full Code (Latest Code Status on File) Date Activated Date Inactivated Comments 09/17/2018 12:49 AM 09/21/2018 6:13 PM This order r eflects the patients wishes and were consensually agreed upon.
--- OUTSIDE RECORDS SUMMARY | 2024-10-01 05:03 | External Medical Summary ---
Author Name Unknown Address Unknown Organization [facility] - [address] [place] [address] Laboratory Report Ordering Provider Test Date Status CARLA LEWIS 06/17/2024 11:11:35 Final Standing order for pt/inr. < br/>Please draw pt/inr every 1 to 4 weeks as requested
Results to [facility]

Warfarin Therapy
INR: 2.0-3.0 conventional anticoagulation
INR: 2.5-3.5 high intensity anticoagulation Observation Date Value Abnormality Reference (Units ) Status PT 06/17/2024 11:11:35 37.1 Above high normal 11 .6-15.2 (seconds) Final INR 06/17/2024 11:11:35 3.7 Above high normal 0. 8-1.2 Final Performing Location [facility]1 0 - [address] [place] [address]
--- OUTSIDE RECORDS SUMMARY | 2024-10-01 05:03 | External Medical Summary | Summary of Care ---
Author Name Unknown Organization [facility] Address [address] [place] [address] Phone [phone] Care Team Providers Care Housing Grant Analyst Name Role Phone Unavailable Primary Care Provider Unavailabl e Encounter Details Date Type Department Care Team (Late st Contact Info) Description 08/10/2024 Population Health External Data Unspecified Department Allergies Active Allergy Reactions Criticality Noted Date Comments Tramadol 05/28/2016 Lowers the seizure threshold documented as of this encounter (statuses as of 08/10/2024) Medications Aspirin 81 MG Tablet Take 1 [...] as of this encounter (statuses as of 08/10/2024) Active Problems Problem Noted Date Diagnosed Date [...] (11/06/2016): 10/05 admit [facility] start warfarin--lifelong per heme--Keep INR around 2.5 to 3 if possible 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 10/05 admit. elev lupus [...] as of this encounter (statuses as of 08/10/2024) Immunizations Name Administration Dates Next Due COVID-19 mRNA, LNP-s, No Pre serve, 2-Dose Series ([employer]) 11/15/2020,10/25/2020 Covid-19, Mrna, Lnp-s, Pf, B ivalent, [...] Description 08/28/2024 12:30 PM EST Laboratory Laboratory, [facility] 132 [facility] [place] [phone] [facility] 132 [place] [address] 08/31/2024 6:15 AM EST Anticoagulation [facility], Daysi Rueda [address] [place] [address] [place] [address] [place] [address] 09/22/2024 4:00 PM EST Office Visit Family Practice [facility] [address] [place] [address] Mukesh Boyd MD [address] [place] [address] 11/12/2024 8:30 AM EDT Office Visit Rheumatology [facility] [address] [place] [phone] Vargas Valdez PA-C [address] [place] [address] [place] [address] 02/01/2025 12:20 PM EDT Office Visit Pulmonary Medicine, [facility] [address] [place] [address] Richie Jackson MD [address] [place] [address] Health Maintenance Due Date Last Done Comments [...]
--- OUTSIDE RECORDS SUMMARY | 2024-10-01 05:03 | External Medical Summary | Summary of Care ---
Author Name Unknown Organization [facility] Address [address] [facility] [place] [address] Phone [phone] Care Team Providers Care Warehouse Associate Driver Name Role Phone Unavailable Primary Care Provider Unavailabl e Reason for Visit * Reason Comments Dosage Adjustment Via Phone (anticoag Cl inic) Encounter Details Date Type Department Care Team (Late st Contact Info) Description 07/27/2024 6:15 AM EST Anticoagulation [facility], Daysi Rueda [address] [place] [address] [place] [address] [facility], [address] [place] [address] Embolic cerebrovascular disease*; Nonbacterial thrombotic endocarditis Allergies Active Allergy Reactions Criticality Noted Date Comments Tramadol 05/28/2016 Lowers the seizure threshold documented as of this encounter (statuses as of 07/27/2024) Medications Aspirin 81 MG Tablet Take 1 [...] as of this encounter (statuses as of 07/27/2024) Active Problems Problem Noted Date Diagnosed Date [...] thrombotic endocarditis 10/14/2016 Overview (11/06/2016): 10/05 admit [facility] start warfarin--lifelong per heme--Keep INR around 2.5 to 3 if possible 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 Jose Antonio Gilmore was discharged from [place] on 10/14/16. During stay he was found [...] rheum, gi? 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 10/05 admit. elev lupus antico + [...] as of this encounter (statuses as of 07/27/2024) Immunizations Name Administration Dates Next Due COVID-19 mRNA, LNP-s, No Pre serve, 2-Dose Series ([employer]) 11/15/2020,10/25/2020 Covid-19, Mrna, Lnp-s, Pf, B ivalent, [...] on file Legal Sex Male 6:02 AM AI Gender Identity Not on file Sexual Orientation [...] documented in this encounter Progress Notes * Lesa Borges CPhT - 07/27/2024 12:07 PM EST Contacts Contact Date/Time Type Contact Phone/Fax 07/27/2024 09:25 AM EST Phone (Outgoing) Jose Antonio Gilmore (Self) [phone] (M) No Answer/Busy - vm full 07/27/2024 12:05 PM EST Phone (Outgoing) Jose Antonio Gilmore (Self) [phone] (M) Spoke to Patient Subjective Patient Findings Negatives: Signs/symptoms of thrombosis, Signs/symptoms of bleeding, Change in health, Change in alcohol use, Change in activity, Upcoming invasive procedure, Missed doses, Extra doses, Change in medications, Change in diet/appetite, Bruising Advised patient to contact Anticoagulation Clinic if any unusual bruising or bleeding, recent illness, changes in medication, or questions/concerns. PT/INR results, Coumadin dose instructions, and next PT/INR date communicated as noted by Pharmacist: Yes LESA BORGES CPhT 07/27/2024, 12:07 PM * Angela Santiago [facility] - 07/27/2024 8:47 AM EST Coumadin Clinic (region specific) Objective Current Warfarin Dose As of 07/27/2024 Warfarin maintenance plan: 7.5 mg (7.5 mg x 1) every Mon, Wed, Fri; 11.25 mg (7.5 mg x 1.5) all other days INR Result As of 07/27/2024 INR goal: 2.5-3.5 INR used for dosin.0 (07/24/2024) Assessment & Plan Warfarin Plan As of 07/27/2024 Full warfarin instructions: 7.5 mg every Mon, Wed, Fri; 11.25 mg all other days No change documented: Angela Santiago [facility] Next INR check: 08/28/2024 Repeat PT/INR in 5 week(s) Weekly dose: not changed Additional Dosing Information: Description [facility] to contact patient with dose instructions as noted. Angela Santiago RPh 07/27/2024, 8:47 AM documented in this encounter Plan of Treatment Upcoming Encounters Date Type Department Care Team (Late st Contact Info) Description 08/28/2024 12:30 PM EST Laboratory Laboratory, [facility] 132 [facility] [place] [phone] [facility] 132 [facility] [place] [address] 08/31/2024 6:15 AM EST Anticoagulation Central[facility] Clinical Pharmacy Services, Daysi Rueda [address] [place] [address] [place] [address] [place] [address] 09/22/2024 4:00 PM EST Office Visit Family Practice [facility] 132 [facility] [place] [address] Mukesh Boyd MD 132 [facility] [place] [address] 11/12/2024 8:30 AM EDT Office Visit Rheumatology [address] [place] [address] Vargas Valdez PA-C [facility] [place] [address] 02/01/2025 12:20 PM EDT Office Visit Pulmonary Medicine, [facility] 132 [facility] [place] [address] Richie Jackson MD [address] [place] [address] Health Maintenance Due Date Last Done Comments HIV Screening 2006 HPV (Gardasil) Vaccine (3 - Male 3-dose series) 05/27/2016 01/25/2016, 11/25/2015 Depression Screening 10/04/2019 10/03/2018 COVID-19 Vaccine (4 - season) 2024 05/01/2022, 11/15/2020, 10/25/2020 Influenza Vaccine [...]
--- OUTSIDE RECORDS SUMMARY | 2024-10-01 05:04 | External Medical Summary | Summary of Care ---
Author Name Unknown Organization [facility] Address [address] [place] [address] Phone [phone] Care Team Providers Care Special Education Professor Name Role Phone Mukesh Boyd MD Primary Care Provider + Reason for Visit * Reason Comments eRx-Medication Refill Encounter Details Date Type Department Care Team (Late st Contact Info) Description 05/28/2024 Refill Neurology [facility] [place] [address] [facility] [place] [address] Stacey Boone MD [address] [facility] [place] [address] Allergies Active Allergy Reactions Criticality Noted Date Comments Tramadol 05/28/2016 Lowers the seizure threshold documented as of this encounter (statuses as of 05/28/2024) Medications Medication Sig Dispensed Refills Start Date End Date Status Aspirin 81 MG Tablet Take 1 Tablet by mouth in the morning. Active Acetaminophen (TYLENOL) 325 MG CAPS Take 650 mg by mouth daily as needed for Pain. Active fluticasone (FLONASE) 50 MCG/ACT nasal spray SPRAY 2 SPRAYS INTO EACH NOSTRIL ONE TIME DAILY FOR CHRONIC NASAL SYMPTOMS. 30 mL 11 09/28/2019 Active Albuterol Sulfate HFA 108 (90 Base) MCG/ACT Inhalation Aerosol SolutionIndicati ons:Hemoptysis,H istory of pulmonary embolism Inhale by mouth 2 Puffs every 4 hours as needed for Wheezing or Dyspnea. 18 g 1 05/03/2022 Active Rhofade 1 % External Cream (Oxymetazoline HCl) Apply topically to affected area daily . 06/13/2021 Active Dulera 100-5 MCG/ACT Inhalation Aerosol (Mometasone-Form oterol) Inhale 2 Puffs by mouth in the morning and 2 Puffs before bedtime. 13 g 2 08/21/2023 Active Latanoprost 0.005 % Ophthalmic Solution (Xalatan) 10/09/2023 Active Lacosamide 50 MG Oral Tablet (Vimpat)Indicati ons:Nonintractab le epileptic spasms without status epilepticus (HCC) Take 1 Tablet by mouth in the morning and 1 Tablet before bedtime. 180 Tablet 3 11/29/2023 Active Cyclobenzaprine HCl 10 MG Oral Tablet (Flexeril)Indica tions:Back spasm Take 1 Tablet by mouth at bedtime as needed for Muscle spasms. 30 Tablet 01/10/2024 Active Atorvastatin Calcium 40 MG Oral Tablet (Lipitor) Take 1 Tablet by mouth in the morning. 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 History of hemoptysis 10/27/2018 Pulmonary nodules 10/27/2018 Obesity, Class I, BMI 30.0-34.9 (see actual BMI) 10/27/2018 Chronic rhinitis 10/21/2018 Systemic lupus erythematosus 07/23/2018 DDD (degenerative disc disease), lumbar 03/28/20 Lumbar back pain 03/18/2017 Antiphospholipid syndrome 10/20/2016 Warfarin anticoagulation 10/20/2016 Acute superficial gastritis without hemorrhage 0 10/20/2016 History of pulmonary embolism 10/20/2016 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 [facility] e pilepticus 10/26/2015 Well adult exam 10/03/2015 Overview: 07/12 Bronchoscopy-+bleeding. 10/05 admit--rec f/u rheum, gi? 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 10/05 admit. elev lupus antico + cardiolipin Epileptic spasms 10/26/2015 10/20/2016 Bacterial pneumonia 05/31/2012 08/26/19 13 Acute bronchitis, complicated 02/11/2012 08/26/2012 Body mass index (BMI) of 120 % to less than 140% of 95th percentile for age in pediatric patient 10/13/2009 03/29/2011 Overview: Per Obesity Taxonomy ICD-10 update of inactive term Routine child health exam 02/19/2005 OTH LEARNING DIFFICULTY 01/01/200202/2011 OBESITY, UNSPECIFIED 010 Overview: Per Obesity Taxonomy documented as of this encounter (statuses as of 05/28/2024) Immunizations Name Administration Dates Next Due COVID-19 mRNA, LNP-s, No Pre serve, 2-Dose Series ([employer]) 11/15/2020,10/25/2020 Covid-19, Mrna, Lnp-s, Pf, B ivalent, [...] Answer Date Recorded PHQ-2 Score -1 10/03/2018 Utilities Answer Date Recorded Do you have trouble paying y our heating, water, or electric bill? (Adult - for ages 18 years and over) Not on file 01/07/2024 Is your family able to pay t he heat, water, or electric bill? (Household - for ages 0-17 years) Not on file 01/07/2024 Does your family have access to good internet? (Household - for ages 0-17 years) Not on file 01/07/2024 Social Connections Answer Date Recorded How often do you feel lonely or isolated from those around you? (Adult - for ages 18 years and over) Not on file 01/07/2024 Sex and Gender Information Value Date Recorded Sex Assigned at Not on file Gender Identity Not on file Sexual Orientation Not on file Job Start Date Occupation Industry Not on file Not on file Not on file documented as of this encounter Functional Status Functional Status Response Date of Assess ment Are you deaf or do you have serious difficulty h earing? No 09/17/2018 Are you blind or do you have serious difficulty seeing, even when wearing glasses? No 09/17/2018 Do you have serious difficul ty walking or climbing stairs? (5 years old or older) No 09/17/2018 Do you have difficulty dress ing or bathing? (5 years old or older) No 09/17/2018 Because of a physical, menta l, or emotional condition, do you have difficulty doing errands alone such as visiting a doctor s office or shopping? (15 years old or older) No 09/17/19 19 Cognitive Status Response Date of Assessm ent Because of a physical, menta l, or emotional condition, do you have serious difficulty concentrating, remembering, or making decisions? (5 years old or older) No 09/17/2018 documented as of this encounter Miscellaneous Notes * Telephone Encounter - Tony Bush [facility] - 05/28/2024 3:51 PM ESTSigned Prescriptions: Disp Refills lamoTRIgine 100 MG Oral Tablet (LaMICtal) 540 Ta*1 Sig: TAKE 3 TABLETS BY MOUTH TWICE A DAYAuthorizing Provider: STACEY BOONE User: TONY BUSH------- documented in this encounter Plan of Treatment Upcoming Encounters Date Type Department Care Team (Late st Contact Info) Description 06/01/2024 3:40 PM EST Office Visit Neurology [facility] [address] [facility] [place] [address] Stacey Boone MD [address] [facility] [place] [address] 06/17/2024 11:00 AM EST Laboratory Laboratory, [facility] [address] [place] [phone] [employer] [facility] [address] [place] [address] 06/19/2024 6:15 AM EST Anticoagulation [facility] Clinical Pharmacy Services, [address] [place] [address] [place] [address] 09/22/2024 4:00 PM EST Office Visit Family Practice [facility] [address] [place] [address] Mukesh Boyd MD [address] [place] [address] 11/12/2024 8:30 AM EDT Office Visit Rheumatology [address] [place], [place] [address] Vargas Valdez PA-C [address] [facility] [place] [address] 02/01/2025 12:20 PM EDT Office Visit Pulmonary Medicine, [facility] [address] [place] [address] Richie Jackson MD [address] [facility] [place] [phone] Health Maintenance Due Date Last Done Comments [...] and were consensually agreed upon. Care Teams Special Education Professor Relationship Specialty Start Date End Date Mukesh Boyd MD [address] [place] [address] PCP - General Family Medicine 10/28/14 documented as of this encounter
--- OUTSIDE RECORDS SUMMARY | 2024-10-01 05:04 | External Medical Summary | Summary of Care ---
Author Name Unknown Organization [facility] Address [address] [facility] [place] [address] Phone [phone] Care Team Providers Care Charge Entry Name Role Phone Mukesh Boyd MD Primary Care Provider + Reason for Visit * Reason Comments Dosage Adjustment Via Phone (anticoag Cl inic) Encounter Details Date Type Department Care Team (Late st Contact Info) Description 05/21/2024 6:15 AM EDT Anticoagulation [facility], [place] [address] [place] [address] [place] [address] [facility], [address] [place] [address] Embolic cerebrovascular disease*; Nonbacterial thrombotic endocarditis Allergies Active Allergy Reactions Criticality Noted Date Comments Tramadol 05/28/2016 Lowers the seizure threshold documented as of this encounter (statuses as of 05/21/2024) Medications Medication Sig Dispensed Refills Start Date End Date Status Aspirin 81 MG Tablet Take 1 Tablet by mouth in the morning. Active Acetaminophen (TYLENOL) 325 MG CAPS Take 650 mg by mouth daily as needed for Pain. Active lamoTRIgine (LAMICTAL) 25 MG TabletIndications:No nintractable epileptic spasms without status epilepticus (HCC) TAKE 2 TABLETS BY MOUTH TWO TIMES DAILY 120 Tab 5 03/27/2019 Active fluticasone (FLONASE) 50 MCG/ACT nasal spray SPRAY 2 SPRAYS INTO EACH NOSTRIL ONE TIME DAILY FOR CHRONIC NASAL SYMPTOMS. 30 mL 11 09/28/2019 Active Albuterol Sulfate HFA 108 (90 Base) MCG/ACT Inhalation Aerosol SolutionIndications: Hemoptysis,History of pulmonary embolism Inhale by mouth 2 Puffs every 4 hours as needed for Wheezing or Dyspnea. 18 g 1 05/03/2022 Active Rhofade 1 % External Cream (Oxymetazoline HCl) Apply topically to affected area daily . 06/13/2021 Active Dulera 100-5 MCG/ACT Inhalation Aerosol (Mometasone-Formoter ol) Inhale 2 Puffs by mouth in the morning and 2 Puffs before bedtime. 13 g 2 08/21/2023 Active lamoTRIgine 100 MG Oral Tablet (LaMICtal) Take 3 Tablets by mouth 2 times a day. 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 180 Tablet 3 11/29/2023 Active Cyclobenzaprine HCl 10 MG Oral Tablet (Flexeril)Indication s:Back spasm Take 1 Tablet by mouth at bedtime as needed for Muscle spasms. 30 Tablet 01/10/2024 Active Atorvastatin Calcium 40 MG Oral Tablet (Lipitor) Take 1 Tablet by mouth in the morning. 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 Jose Antonio Gilmore was discharged from [facility] on 10/14/16. During stay he was found [...] rheum, gi? 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 3/17 admit. elev lupus antico + cardiolipin Epileptic [...] as of this encounter (statuses as of 05/21/2024) Immunizations Name Administration Dates Next Due COVID-19 mRNA, LNP-s, No Pre serve, 2-Dose Series ([employer]) 11/15/2020,10/25/2020 Covid-19, Mrna, Lnp-s, Pf, B ivalent, [...] No 09/17/2018 documented as of this encounter Progress Notes * Maye Tamayo, [facility] - 05/21/2024 9:35 AM EDT Contacts Contact Date/Time Type Contact Phone/Fax 05/21/2024 09:33 AM EDT Phone (Outgoing) Jose Antonio Gilmore (Self) [phone] (M) Spoke to Patient Subjective Patient Findings Positives: Bruising (Patient states bruise he called about last week is healing. No additional concerns at this time.) Negatives: Signs/symptoms of bleeding, Change in health, Change in activity, Upcoming invasive procedure, Missed doses, Extra doses, Change in medications, Change in diet/appetite Advised patient to contact Anticoagulation Clinic if any unusual bruising or bleeding, recent illness, changes in medication, or questions/concerns. PT/INR results, Coumadin dose instructions, and next PT/INR date communicated as noted by Pharmacist: Yes MAYE TAMAYO CPhT 05/21/2024, 9:35 AM * Angela Santiago RPh - 05/20/2024 9:30 PM EDT Coumadin Clinic (region specific) Objective Current Warfarin Dose As of 05/21/2024 Warfarin maintenance plan: 7.5 mg (7.5 mg x 1) every Mon, Wed, Fri; 11.25 mg (7.5 mg x 1.5) all other days INR Result As of 05/21/2024 INR goal: 2.5-3.5 INR used for dosin.6 (05/20/2024) Assessment & Plan Warfarin Plan As of 05/21/2024 Full warfarin instructions: 7.5 mg every Mon, Wed, Fri; 11.25 mg all other days No change documented: Angela Santiago RPh Next INR check: 06/17/2024 Repeat PT/INR in 4 week(s) Weekly dose: not changed Additional Dosing Information: Description [employer] to contact patient with dose instructions as noted. Angela Santiago RPh 05/20/2024, 9:30 PM documented in this encounter Plan of Treatment Upcoming Encounters Date Type Department Care Team (Late st Contact Info) Description 06/01/2024 3:40 PM EST Office Visit Neurology [facility] [place] 200 [facility] [place], [place] [address] Uriah De La Rosa MD [address] [place] [address] 06/17/2024 11:00 AM EST Laboratory Laboratory, [facility] [place] [phone] [facility] [place] [address] 06/19/2024 6:15 AM EST Anticoagulation [facility], [address] [place] [address] [place] [address] 09/22/2024 4:00 PM EST Office Visit Family Practice [facility] [place] [address] Mukesh Boyd MD 132 [facility] [place] [address] 11/12/2024 8:30 AM EDT Office Visit Rheumatology [place] [phone] [facility] [place] [address] Vargas Valdez PA-C [facility] [facility] [place] [address] 02/01/2025 12:20 PM EDT Office Visit Pulmonary Medicine, [facility] 132 [facility] [place] [address] Richie Jackson MD [address] [place] [phone] Health Maintenance Due Date Last Done Comments [...] and were consensually agreed upon. Care Teams Charge Entry Relationship Specialty Start Date End Date Mukesh Boyd MD 132 [facility] [place] [phone] PCP - General Family Medicine 10/28/14 documented as of this encounter
--- OUTSIDE RECORDS SUMMARY | 2024-10-01 05:04 | External Medical Summary | Summary of Care ---
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) Allergies Active Allergy Reactions Criticality Noted Date Comments Tramadol 05/28/2016 Lowers the seizure threshold documented as of this encounter (statuses as of 06/01/2024) Medications Aspirin 81 MG Tablet Take 1 [...] Active Latanoprost 0.005 % Ophthalmic Solution (Xalatan) 4 Active Cyclobenzaprine HCl 10 MG Oral [...] BEFORE BEDTIME 180 Tablet 1 4 Active documented as of this encounter (statuses as of 06/01/2024) Active Problems Problem Noted Date Diagnosed Date [...] thrombotic endocarditis 10/14/2016 Overview (11/06/2016): 10/05 admit [facility] start warfarin--lifelong per heme--Keep INR around 2.5 to 3 if possible 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 Jose Antonio Gilmoer was discharged from [place] on 10/14/16. During stay he was found [...] rheum, gi? 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 10/05 admit. elev lupus [...] as of this encounter (statuses as of 06/01/2024) Immunizations Name Administration Dates Next Due COVID-19 mRNA, LNP-s, No Pre serve, 2-Dose Series ([employer]) 11/15/2020,10/25/2020 Covid-19, Mrna, Lnp-s, Pf, B ivalent, [...] Industry Job Start Date Job End Date [employer]. Not on file Not on file [...] encounter Miscellaneous Notes * Telephone Encounter - Stacey Boone MD - 06/01/2024 9:26 AM ESTSigned Prescriptions: Disp Refills Lacosamide 50 MG Oral Tablet (Vimpat) 180 Ta*1 Sig: TAKE 1 TABLET BY MOUTH IN THE MORNING AND BEFORE BEDTIME Authorizing Provider: STACEY BOONE * Telephone Encounter - Jocelyne Mina, [employer] - 06/01/2024 9:06 AM EST Pending Prescriptions: Disp Refills Lacosamide 50 MG Oral Tablet (Vimpat) 180 Ta*1 Sig: TAKE 1 TABLET BY MOUTH IN THE MORNING AND BEFORE BEDTIME * Telephone Encounter - Sherrell Kim [facility] - 05/29/2024 11:43 AM EST Pending Prescriptions: Disp Refills Lacosamide 50 MG Oral Tablet (Vimpat) 180 Ta*1 Sig: TAKE 1 TABLET BY MOUTH IN THE MORNING AND BEFORE BEDTIME * Telephone Encounter - Sherrell Kim [facility] - 05/29/2024 11:41 AM EST Controlled rx's are only valid for 6 months. [facility] is currently not authorized to approve refills for the pended medication(s) per refill protocol. Please approve if appropriate. Thank you, Sherrell Kim, PharmD Clinical Pharmacist [facility] Clinical Pharmacy Services ([facility]) [phone] 05/29/2024, 11:42 AM documented in this encounter Plan of Treatment Upcoming Encounters Date Type Department Care Team (Late st Contact Info) Description 06/01/2024 3:40 PM EST Office Visit Neurology [facility] 200 [facility] [place] [address] Stacey Boone MD 200 [facility] [place] [address] 06/17/2024 11:00 AM EST Laboratory Laboratory, [facility] [address] [place] [phone] [facility] 132 [facility] [place] [address] 06/19/2024 6:15 AM EST Anticoagulation [facility], [place] [address] [place] [address] [place] [address] [facility], [address] [place] [address] 09/22/2024 4:00 PM EST Office Visit Family Practice [facility] [address] [place] [address] Mukesh Boyd MD [address] [place] [address] 11/12/2024 8:30 AM EDT Office Visit Rheumatology [facility] [address] [facility] [place], [place] [address] Vargas Valdez PA-C [address] [employer] [place] [address] 02/01/2025 12:20 PM EDT Office Visit Pulmonary Medicine, [facility] [address] [place] [address] Richie Jackson MD [address] [place] [address] Health Maintenance Due Date Last Done Comments [...] as of this encounter Visit Diagnoses Diagnosis 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 Care Teams Ecd Relationship Specialty Start Date End Date Mukesh Boyd MD [address] [place] [address] PCP - General Family Medicine 10/28/14 documented as of this encounter
--- OUTSIDE RECORDS SUMMARY | 2024-10-01 05:04 | External Medical Summary | Summary of Care ---
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) Allergies Active Allergy Reactions Criticality Noted Date Comments Tramadol 05/28/2016 Lowers the seizure threshold documented as of this encounter (statuses as of 05/29/2024) Medications Aspirin 81 MG Tablet Take 1 [...] 1 Active Dulera 100-5 MCG/ACT Inhalation Aerosol (Mometasone-For [...] [facility] 180 Tablet 1 4 Active Hydroxychloroqu ine Sulfate 200 MG Oral Tablet (Plaquenil) TAKE 2 TABLETS BY MOUTH AT BEDTIME 180 Tablet 2 4 Active lamoTRIgine 100 MG Oral Tablet (LaMICtal) TAKE 3 TABLETS BY MOUTH TWICE A DAY 540 Tablet 1 4 Active Lacosamide 50 MG Oral Tablet (Vimpat)Indicat ions:Nonintract able epileptic spasms without status epilepticus (HCC) Take 1 Tablet by mouth in the morning and 1 Tablet before bedtime. 180 Tablet 3 4 Active Lacosamide 50 MG Oral Tablet (Vimpat)Indicat ions:Nonintract able epileptic spasms without status epilepticus (HCC) Take 1 Tablet by mouth in the morning and 1 Tablet before bedtime. 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 Jose Antonio Gilmore was discharged from [place] on 10/14/16. During stay he was found [...] rheum, gi? 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 10/05 admit. elev lupus [...] as of this encounter (statuses as of 05/29/2024) Immunizations Name Administration Dates Next Due COVID-19 mRNA, LNP-s, No Pre serve, 2-Dose Series ([employer]) 11/15/2020,10/25/2020 Covid-19, Mrna, Lnp-s, Pf, B ivalent, 30 Mcg, IM, 12 yrs and above ([employer]) 05/01/2022 HPV Vaccine, 9-Valent 01/25/2016,11/25/2015 Meningococcal Conjugate [...] Industry Job Start Date Job End Date [employer]. Not on file Not on file [...] Telephone Encounter - Stacey Boone MD - 05/29/2024 12:16 PM ESTSigned Prescriptions: Disp Refills Lacosamide 50 MG Oral Tablet (Vimpat) 180 Ta*3 Sig: Take 1 Tablet by mouth in the morning and 1 Tablet before bedtime. Authorizing Provider: STACEY BOONE * Telephone Encounter - Jocelyne Mina, [employer] - 05/29/2024 11:21 AM ESTPending Prescriptions: Disp Refills Lacosamide 50 MG Oral Tablet (Vimpat) 180 Ta*3 Sig: Take 1 Tablet by mouth in the morning and 1 Tablet before bedtime. documented in this encounter Plan of Treatment Upcoming Encounters Date Type Department Care Team (Late st Contact Info) Description 06/01/2024 3:40 PM EST Office Visit Neurology [facility] [address] [address] Stacey Boone MD [address] [facility] [place] [address] 06/17/2024 11:00 AM EST Laboratory Laboratory, [facility] [address] [facility] [place] [phone] [facility] [place] [address] 06/19/2024 6:15 AM EST Anticoagulation Centralized Clinical Pharmacy Services, [address] [place] [address] [place] [address] 09/22/2024 4:00 PM EST Office Visit Family Practice [facility] [address] [facility] [place] [address] Mukesh Boyd MD 132 [facility] [place] [address] 11/12/2024 8:30 AM EDT Office Visit Rheumatology [place] [address] [facility] [place] [address] Vargas Valdez PA-C [address] [facility] [place] [address] 02/01/2025 12:20 PM EDT Office Visit Pulmonary Medicine, [facility] 132 [facility] [place] [address] Richie Jackson MD [address] [place] [phone] Health Maintenance Due Date Last Done Comments [...] and were consensually agreed upon. Care Teams Shoemaking Finisher Relationship Specialty Start Date End Date Mukesh Boyd MD [address] [place] [address] PCP - General Family Medicine 10/28/14 documented as of this encounter
--- OUTSIDE RECORDS SUMMARY | 2024-10-01 05:04 | External Medical Summary | Summary of Care ---
Author Name Unknown Organization [facility] Address [address] [place] [address] Phone [phone] Care Team Providers Care Hide Mill Worker Name Role Phone Mukesh Boyd MD Primary Care Provider + Reason for Visit * Reason Comments Outpatient Testing Encounter Details Date Type Department Care Team (Latest Contact Info) Description 05/20/2024 11:00 AM EDT Laboratory Laboratory, [facility] [address] [place] [address] [facility] [address] [place] [address] Anticoagulation management encounter Allergies Active Allergy Reactions Criticality Noted Date Comments Tramadol 05/28/2016 Lowers the seizure threshold documented as of this encounter (statuses as of 05/20/2024) Medications Medication Sig Dispensed Refills Start Date [...] as of this encounter (statuses as of 05/20/2024) Active Problems Problem Noted Date Diagnosed Date [...] [place]. Jose Antonio Gilmore was discharged from [place] [...] as of this encounter (statuses as of 05/20/2024) Resolved Problems Problem Noted Date Diagnosed Date [...] as of this encounter (statuses as of 05/20/2024) Immunizations Name Administration Dates Next Due COVID-19 mRNA, LNP-s, No Pre serve, 2-Dose Series ([email or web address]) 11/15/2020,10/25/2020 Covid-19, Mrna, Lnp-s, Pf, B ivalent, [...] No 09/17/2018 documented as of this encounter Plan of Treatment Upcoming Encounters Date Type Department Care Team (Late st Contact Info) Description 05/21/2024 6:15 AM EDT Anticoagulation [facility], Daysi Rueda [address] [place] [address] [place] [address] [place] [address] 06/01/2024 3:40 PM EST Office Visit Neurology [facility] [address] [place], [place] [address] Uriah De La Rosa MD 200 [place] [address] 09/22/2024 4:00 PM EST Office Visit Family Practice [facility] 132 [facility] [place] [address] Mukesh Boyd MD 132 [facility] [place] [address] 11/12/2024 8:30 AM EDT Office Visit Rheumatology [facility] [address] [place] [address] Vargas Valdez PA-C [address] [place] [address] 02/01/2025 12:20 PM EDT Office Visit Pulmonary Medicine, [facility] 132 [facility] [place] [address] Richie Jackson MD [address] [facility] [address] Pending Results Name Type Priority Associated Diagnoses Date /Time PT INR Lab Routine Anticoagulation management encounter 05/20/2024 10:41 AM EDT Health Maintenance Due Date Last Done Comments [...] and were consensually agreed upon. Care Teams Hide Mill Worker Relationship Specialty Start Date End Date Mukesh Boyd MD [address] [place] [address] PCP - General Family Medicine 10/28/14 documented as of this encounter
--- OUTSIDE RECORDS SUMMARY | 2024-10-01 05:04 | External Medical Summary | Summary of Care ---
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 Jose Antonio Gilmore was discharged from [place] on 10/14/16. During stay he was found [...] rheum, gi? 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 10/05 admit. elev lupus antico + cardiolipin Epileptic spasms 10/26/2015 10/20/2016 Bacterial pneumonia 05/31/2012 08/26/19 13 Acute bronchitis, complicated 02/11/2012 08/26/2012 Body mass index (BMI) of 120 % to less than 140% of 95th percentile for age in pediatric patient 10/13/2009 03/29/2011 Overview (04/21/2024): Per Obesity Taxonomy ICD-10 update of inactive term Routine child health exam 02/19/2005 OTH LEARNING DIFFICULTY 01/01/2002 09/0 02/2011 OBESITY, UNSPECIFIED 010 Overview (10/13/2009): Per Obesity Taxonomy documented as of this encounter (statuses as of 06/01/2024) Immunizations Name Administration Dates Next Due COVID-19 mRNA, LNP-s, No Pre serve, 2-Dose Series ([employer]) 11/15/2020,10/25/2020 Covid-19, Mrna, Lnp-s, Pf, B ivalent, 30 Mcg, IM, 12 yrs and above ([employer]) 05/01/2022 HPV Vaccine, 9-Valent 01/25/2016,11/25/2015 Meningococcal Conjugate [...] Industry Job Start Date Job End Date [employer]. Not on file Not on file Not on file documented as of this encounter Last Filed Vital Signs Vital Sign Reading Time Taken Comments Blood Pressure 132/80 06/01/2024 3:42 PM EST Pulse 63 06/01/2024 3:42 PM EST Temperature 37.1 C (98.7 F) 06/01/2024 3:42 PM ES T Respiratory Rate 18 06/01/2024 3:42 PM EST Oxygen Saturation 94% 06/01/2024 3:42 PM EST Inhaled Oxygen Concentration - - Weight 96.6 kg (213 lb) 06/01/2024 3:42 PM EST Height - - Body Mass Index 33.36 01/30/2024 1:29 PM EDT documented in this encounter Functional Status [...] documented in this encounter Progress Notes * Uriah De La Rosa MD - 06/01/2024 4:06 PM EST CLINIC NOTES Neurology [facility] [place] [address] [facility] [address] Jose Antonio Gilmore [id number] NEUROLOGY OUTPATIENT NOTE 06/01/2024 HISTORY: Jose Antonio is 33 years old has a seizure disorder about 10 years' duration and is finally under good control on a combination of Lamictal and Vimpat. Unfortunately he had an issue with runningout of Vimpat somewhat early was told he could not get the prescription because it was a controlledsubstance, did not let me know the issue and has been out of the medicine for about 10 days. 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 Otherwise his health is good he has had no new medical issues he is on no new medications Past Medical History: Diagnosis Date Acute superficial gastritis without hemorrhage 10/20/2016 Antiphospholipid syndrome (HCC) 10/20/2016 Aspiration pneumonia of right middle lobe (HCC) 01/22/2016 Cerebellar infarct (HCC) 10/08/201610/05 acute? [facility]. 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 benign. BRONCHOSCOPY 2019 BRONCHOSCOPY, DIAGNOSTIC N/A 07/04/2022 BRONCHOSCOPY DIAGNOSTIC WITH OR WITHOUT WASHING performed by Topher Timmons MD at OR [facility] EGD, FLEXIBLE, DIAGNOSTIC 10/05/2016 gastritis/[facility] EGD, FLEXIBLE, DIAGNOSTIC 11/13/2018 normal biopsies/ESOPHAGOGASTRODUODENOSCOPY (EGD), FLEXIBLE, TRANSORAL, DIAGNOSTIC performed by Hans Olivia DO at ENDOSCOPY [facility] EGD, W/ENDOSCOPIC US 11/13/2018 biopsies of liver show mild inflammation/ESOPHAGOGASTRODUODENOSCOPY (EGD), FLEXIBLE, TRANSORAL, ENDOSCOPIC ULTRASOUND performed by Hans Olivia DO at ENDOSCOPY [facility] I&D ABSC INTRAORAL SOFT TISS 12/05/2021 I&D & Tooth extraction Dr Payam Lee [facility] OTHER 2008 wisdom teeth (4)--gen anes Social History Socioeconomic History Marital status: Single Spouse name: Not on file Number of children: Not on file Years of education: Not on file Highest education level: Not on file Occupational History 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 Smoking status: Former Current packs/day: 0.00 Average packs/day: 1 pack/day for 8.0 years (8.0 ttl pk-yrs) Types: Cigarettes Start date: 11/20/2003 Quit date: 11/20/2011 Years since quittin.5 Smokeless tobacco: Never Tobacco comments: no passive smoke Vaping Use Vaping status: Former Substance and Sexual Activity Alcohol use: Yes Comment: 1-2 beer/ wk Drug use: Yes Frequency: 7.0 times per week Types: Marijuana Comment: medical marijuana, vaporizer Sexual activity: Not Currently Partners: Female control/protection: Condom Other Topics Concern Not on file Social History Narrative 3 dogs and 1 cat in his home. No mold. Social Needs Financial Resource Strain: Not on file Food Insecurity: Not on file Transportation Needs: Not on file Social Connections: Unknown (01/07/2024) Social Connections How often do you feel lonely or isolated from those around you? (Adult - for ages 18 years and over): Not on file Housing Stability: Not on file Family History Problem Relation Name Age of Onset Allergies Mother strawberries - hives Mental Disorder Mother Depression Allergies Father cat and dog allergy Other (Other) Father sleep apnea Glaucoma Father No Known Problems Sister No Known Problems Sister No Known Problems Brother Current Outpatient Medications Medication Sig Dispense Refill [...] needed for Muscle spasms. 30 Tablet 0 Atorvastatin Calcium 40 MG Oral Tablet (Lipitor) Take 1 Tablet by mouth in the morning. 90 Tablet 1 Warfarin Sodium 7.5 MG Oral Tablet (Coumadin) [...] 1 Tablet before bedtime. 180 Tablet 3 No current facility-administered medications for this visit. Review of patient's allergies indicates: Allergen Reactions Tramadol Lowers the seizure threshold REVIEW OF SYSTEMS: With the exception of historical items included in the history of present illness above, a 12-point systems review was normal. PHYSICAL EXAM: BP 132/80 (BP Site: Right Arm, BP Position: Sitting, BP Cuff Size: Large) | Pulse 63| Temp 37.1 C (98.7 F) (Tympanic) | Resp 18 | Wt 96.6 kg (213 lb) | SpO2 94% | BMI 33.36 kg/m| BSA 2.14 m He is awake alert oriented 3 spheres with normal eye movements facial motility strength facial sensation clear speech. Gait shows a mild fisting of the left hand when he walks as the only residual ofhis old infarction and there may be slight clumsiness of the left hand but this is his nondominant hand anyway so it is difficult to information security risk analyst. 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 related to an underlying connective tissue disorder now asymptomatic on Coumadin Plan is to see him back in 6 months I spent 25 minutes reviewing the chart discussing his issues speaking with the pharmacist ensuring that his prescription was refilled performing examination and formulating a plan for follow-up and ongoing care The above note was generated utilizing voice recognition technology may have spelling errors punctuation errors pronoun usage errors and syntax errors Uriah De La Rosa MD documented in this encounter Nursing Notes * Chanelle Mosley LPN - 06/01/2024 3:42 PM EST Patient verified identity by spelling of last name and date. Chief Complaint Patient presents with Return Neuro Seizure Disorder No recent seizure activity documented in this encounter Plan of Treatment Upcoming Encounters Date Type Department Care Team (Late st Contact Info) Description 06/17/2024 11:00 AM EST Laboratory Laboratory, [facility] [address] [place] [phone] [employer] [facility] 132 [facility] [place] [address] 06/19/2024 6:15 AM EST [facility] Clinical Pharmacy Services, [address] [place] [address] [place] [address] 09/22/2024 4:00 PM EST Office Visit Family Practice [facility] [address] [place] [address] Mukesh Boyd MD 132 [facility] [place] [address] 11/12/2024 8:30 AM EDT Office Visit Rheumatology [place] [phone] [facility] [place] [address] Vargas Valdez PA-C [address] [facility] [place] [address] 02/01/2025 12:20 PM EDT Office Visit Pulmonary Medicine, [facility] [address] [place] [address] Richie Jackson MD [address] [place] [address] Health Maintenance Due Date Last Done Comments [...] Diagnosis 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 Care Teams Rug Scratcher Relationship Specialty Start Date End Date Mukesh Boyd MD [address] [place] [address] PCP - General Family Medicine 10/28/14 documented as of this encounter"
--- OUTSIDE RECORDS SUMMARY | 2024-10-01 05:05 | External Medical Summary | Summary of Care ---
Author Name Unknown Organization [facility] Address [address] [facility] [place] [address] Phone [phone] Care Team Providers Care Communications Program Manager Name Role Phone Mukesh Body MD Primary Care Provider + Reason for Visit * Reason Onset Date Comments Dosage Adjustment Via Phone ([facility]icoag Clinic) Encounter Details Date Type Department Care Team (Late st Contact Info) Description 05/14/2024 Telephone Centralized Clinical Pharmacy Services, Daysi Rueda [address] [place] [address] [place] [address] [facility], [address] [place] [address] Dosage Adjustment Via Phone (anticoag Clinic) Allergies Active Allergy Reactions Criticality Noted Date Comments Tramadol 05/28/2016 Lowers the seizure threshold documented as of this encounter (statuses as of 05/14/2024) Medications Medication Sig Dispensed Refills Start Date [...] as of this encounter (statuses as of 05/14/2024) Active Problems Problem Noted Date Diagnosed Date [...] 07/23/2018 DDD (degenerative disc disease), lumbar 03/28/20 17 Lumbar back pain 03/18/2017 Antiphospholipid syndrome 10/20/2016 Warfarin anticoagulation 10/20/2016 Acute superficial gastritis without hemorrhage 0 10/20/2016 History of pulmonary embolism 10/20/2016 Nonbacterial thrombotic endocarditis 10/14/2016 Overview: 10/05 admit [facility] start warfarin--lifelong per heme--Keep INR around 2.5 to 3 if possible 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 Jose Antonio Gilmore was discharged from [place] on 10/14/16. During stay he was found [...] rheum, gi? Bronchoscopy WNL 05/06 TTE WNL @[facility] documented as of this encounter (statuses as of 05/14/2024) Resolved Problems Problem Noted Date Diagnosed Date Resolved Date Mycobacterium infection 10/27/201812/21 Allergic rhinitis 10/27/2018 01/14/2019 Hemoptysis 09/17/2018 01/11/2024 Nonbacterial thrombotic endocarditis 10/20/2016 10/26/2016 Pulmonary hemorrhage 10/20/2016 019 Pulmonary embolism and infarction 05/22/2016 05/29/2019 Overview: 05/06 [facility] DX. 10/05 admit. elev lupus antico [...] as of this encounter (statuses as of 05/14/2024) Immunizations Name Administration Dates Next Due COVID-19 mRNA, LNP-s, No Pre serve, 2-Dose Series (Buttercoin) 11/15/2020,10/25/2020 Covid-19, Mrna, Lnp-s, Pf, B ivalent, [...] encounter Miscellaneous Notes * Telephone Encounter - Angela Santiago RPh - 05/14/2024 11:41 AM EDT Noted, bruising expected more easily in Coumadin patients. Advised to monitor. INR due next week. Angela Santiago Rph, Pharm.D. Clinical Pharmacist [facility]ized Clinical [facility]acy Services ([facility]) [phone] 05/14/2024,11:42 AM * Telephone Encounter - Viridiana Borges CPhT - 05/14/2024 10:54 AM EDT Caller's name: Jose Antonio Preferred call back number(OFFICE NUMBER FOR ): [phone] Reason for call: Patient calling to report a random bruise below his rib cage, that he just noticedin the shower. Stated that is the size of a half dollar -- Notified [facility] ([place]), Patient aware to monitor for change of color/size and to reach out if any changes. Thank you, Viridiana Borges CPhT Criminal Court Judge II [facility] Pharmacy Services ([facility]) 05/14/2024,10:55 AM documented in this encounter Plan of Treatment Upcoming Encounters Date Type Department Care Team (Late st Contact Info) Description 05/20/2024 8:30 AM EDT Laboratory Laboratory, [facility] [address] [facility] [address] [facility] [address] 05/21/2024 6:15 AM EDT Anticoagulation Centralized Clinical Pharmacy Services, Daysi Rueda [address] [place] [address] [place] [address] [facility], [address] [place] [address] 06/01/2024 3:40 PM EST Office Visit Neurology [facility] [place] 200 [facility] [place] [address] Uriah De La Rosa MD [address] [place] [address] 09/22/2024 4:00 PM EST Office Visit Family Practice [facility] [place] [address] Mukesh Boyd MD [address] [place] [address] 11/12/2024 8:30 AM EDT Office Visit Rheumatology [place] [address] [facility] [place], [place] [address] Vargas Valdez PA-C [address] [place] [address] 02/01/2025 12:20 PM EDT Office Visit Pulmonary Medicine, [facility] [address] [place] [address] Richie Jackson MD [address] [facility] [address] Health Maintenance Due Date Last Done Comments [...] and were consensually agreed upon. Care Teams Communications Program Manager Relationship Specialty Start Date End Date Mukesh Boyd MD [address] [place] [address] PCP - General Family Medicine 10/28/14 documented as of this encounter
--- OUTSIDE RECORDS SUMMARY | 2024-10-01 05:05 | External Medical Summary ---
Author Name Unknown Address Unknown Organization K01:[facility] - [address] [facility] [place] [address] Laboratory Report Ordering Provider Test Date Status MARIA VICTORIA HSU 04/22/2024 08:48:46 Final Observation Date Value Abnormality Reference (Units ) Status Triglyceride 04/22/2024 08:48:46 64 <=174 ( mg/dL) Final Triglyceride Reference Range s (mg/dL):
<150 Acceptable
150-174 Borderline high
175-499 High
>=500 Very high Cholesterol 04/22/2024 08:48:46 117 <200 (mg /dL) Final Total Cholesterol Reference Ranges (mg/dL):
<200 Desirable
200-239 Borderline high
>=240 High HDL 04/22/2024 08:48:46 48 >39 (mg/dL ) Final HDL Cholesterol Reference Ra nges (mg/dL):
>=60 High (Desirable)
<50 Low (Undesirable) For Females
<40 Low (Undesirable) For Males NON-HDL CHOLESTEROL 04/22/2024 08:48:46 69 <=159 (mg/dL) Final Non-HDL Cholesterol Referenc e Range (mg/dL):
<100 Target level for high risk ASCVD patient
<130 Optimal for general population
130-159 Near optimal for general population
160-189 Borderline High
190-219 High
>=220 Very High LDL, (calculated) 04/22/2024 08:48:46 56 <= 129 (mg/dL) Final LDL Cholesterol Reference Ra nges (mg/dL):
<70 Target level for high risk ASCVD patient
<100 Optimal for general population
100-129 Near optimal for general population
130-159 Borderline high
160-189 High
>=190 Very high Performing Location [facility] - [address] [place] [address]
--- OUTSIDE RECORDS SUMMARY | 2024-10-01 05:05 | External Medical Summary | Summary of Care ---
Author Name Unknown Organization [facility] Address [address] [facility] [place] [address] Phone [phone] Care Team Providers Care Machine Setup Operator Name Role Phone Mukesh Boyd MD Primary Care Provider + Reason for Visit * Reason Comments Dosage Adjustment Via Phone (anticoag Cl inic) Encounter Details Date Type Department Care Team (Late st Contact Info) Description 04/23/2024 6:15 AM EDT Anticoagulation Centralized Clinical Pharmacy Services, Daysi Rueda [address] [place] [address] [place] [address] [facility], [address] [place] [address] Embolic cerebrovascular disease*; Nonbacterial thrombotic endocarditis Allergies Active Allergy Reactions Criticality Noted Date Comments Tramadol 05/28/2016 Lowers the seizure threshold documented as of this encounter (statuses as of 04/23/2024) Medications Medication Sig Dispensed Refills Start Date [...] as of this encounter (statuses as of 04/23/2024) Active Problems Problem Noted Date Diagnosed Date [...] 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 3/17 admit. elev lupus antico + [...] as of this encounter (statuses as of 04/23/2024) Immunizations Name Administration Dates Next Due COVID-19 mRNA, LNP-s, No Pre serve, 2-Dose Series (Shidonni) 11/15/2020,10/25/2020 Covid-19, Mrna, Lnp-s, Pf, B ivalent, [...] as of this encounter Progress Notes * Angela Santiago RPh - 04/23/2024 1:53 PM EDT Noted Angela Santiago Rph, Pharm.D. Clinical Pharmacist [facility] ([facility]) [phone] 04/23/2024,1:53 PM Electronically signed by Angela Santiago [facility] at 04/23/2024 1:53 PM EDT * Lisa Razo [facility] - 04/23/2024 12:14 PM EDT Contacts Contact Date/Time Type Contact Phone/Fax 04/23/2024 12:03 PM EDT Phone (Outgoing) Jose Antonio Gilmore (Self) [phone] (M) Spoke to Patient Subjective Patient Findings Positives: Signs/symptoms of bleeding (Patient reports bleeding gums not related to single tooth extraction from last week. Reached out to [facility] and was told to advise patient if bleeding continues after holding dose of Warfarin to call and notify clinic.), Extra doses (Patient took dose for today. Reached out to [facility] patient to hold dose on 04/24/2024 Otherwise 7.5mg every Mon and Wed and 11.25mg all other days.), Change in diet/appetite (Patient reports a 10lb weight loss after having toothextraction. Patient is now resuming regular diet. [facility] advises if appeptite is still poor by next week to nh and have repeat INR sooner.), Bruising (Patient reports bruising on legs, did reach out to [facility]. [facility] advised to have patient monitor bruises for darkening of color or becoming larger and to call the clinic if changes.) Negatives: Change in health, Change in activity, Upcoming invasive procedure, Missed doses, Change in medications Advised patient to contact Anticoagulation Clinic if any unusual bruising or bleeding, recent illness, changes in medication, or questions/concerns. PT/INR results, Coumadin dose instructions, and next PT/INR date communicated as noted by Pharmacist: Yes LISA RAZO CPhT 04/23/2024, 12:19 PM * Angela Santiago [facility] - 04/23/2024 10:27 AM EDT Images from the original note were not included. Coumadin Clinic (region specific) Objective Current Warfarin Dose As of 04/23/2024 Warfarin maintenance plan: 7.5 mg (7.5 mg x 1) every Mon, Wed, Fri; 11.25 mg (7.5 mg x 1.5) all other days INR Result As of 04/23/2024 INR goal: 2.5-3.5 INR used for dosin.8 (04/22/2024) Assessment & Plan Warfarin Plan As of 04/23/2024 Full warfarin instructions: 04/23: Hold; Otherwise 7.5 mg every Mon, Wed, Fri; 11.25 mg all other days Next INR check: 05/20/2024 Repeat PT/INR in 4 week(s) Weekly dose: not changed Additional Dosing Information: Description Moncho Cunningham to contact patient with dose instructions as noted. Angela Santiago RPh 04/23/2024, 12:00 PM documented in this encounter Plan of Treatment Upcoming Encounters Date Type Department Care Team (Late st Contact Info) Description 05/20/2024 8:30 AM EDT Laboratory Laboratory, [facility] [place] [address] [place] [address] Vee Thak[facility] [address] [place] [address] 05/21/2024 6:15 AM EDT Anticoagulation Central[facility] Services, Daysi Rueda [address] [place] [address] [place] [address] [place] [address] 06/01/2024 3:40 PM EST Office Visit Neurology [facility] [address] [place] [address] Uriah De La Rosa MD [address] [place] [address] 09/22/2024 4:00 PM EST Office Visit Family Practice [facility] [place] [address] [place] [address] Mukesh Boyd MD [address] [place] [address] 11/12/2024 8:30 AM EDT Office Visit Rheumatology [facility] [address] [facility] [place] [address] Vargas Valdez PA-C [address] [facility] [place] [address] 02/01/2025 12:20 PM EDT Office Visit Pulmonary Medicine, [facility] [address] [place] [address] Richie Jackson MD [address] [place] [address] Health Maintenance Due Date Last Done Comments [...] and were consensually agreed upon. Care Teams Machine Setup Operator Relationship Specialty Start Date End Date Mukesh Boyd MD [address] [place] [address] PCP - General Family Medicine 10/28/14 documented as of this encounter
--- OUTSIDE RECORDS SUMMARY | 2024-10-01 05:05 | External Medical Summary ---
Author Name Unknown Address Unknown Organization K0G:[facility] [place] [facility] - [address] [place] [address] Laboratory Report Ordering Provider Test Date Status CARLA LEWIS 05/20/2024 10:41:12 Final Standing order for pt/inr. < br/>Please draw pt/inr every 1 to 4 weeks as requested
Results to [facility] Anticoagulation Clinic

Warfarin Therapy
INR: 2.0-3.0 conventional anticoagulation
INR: 2.5-3.5 high intensity anticoagulation Observation Date Value Abnormality Reference (Units ) Status PT 05/20/2024 10:41:12 28.0 Above high normal 11 .6-15.2 (seconds) Final INR 05/20/2024 10:41:12 2.6 Above high normal 0. 8-1.2 Final Performing Location [facility] 0 - [address] [place] [address]
--- OUTSIDE RECORDS SUMMARY | 2024-10-01 05:05 | External Medical Summary | Summary of Care ---
Author Name Unknown Organization [facility] Address [address] [place] [address] Phone [phone] Care Team Providers Care Platform Operations Director Name Role Phone Mukesh Boyd MD Primary Care Provider + Reason for Visit * Reason Comments Outpatient Testing Encounter Details Date Type Department Care Team (Latest Contact Info) Description 04/22/2024 8:30 AM EDT Laboratory Laboratory, 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 Jose Antonio Gilmore was discharged from [place] on 10/14/16. During [...] rheum, gi? 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 10/05 admit. elev lupus antico [...] as of this encounter (statuses as of 04/22/2024) Immunizations Name Administration Dates Next Due COVID-19 mRNA, LNP-s, No Pre serve, 2-Dose Series (Familio) 11/15/2020,10/25/2020 Covid-19, Mrna, Lnp-s, Pf, B ivalent, [...] Anticoagulation Centralized Clinical Pharmacy Services, Daysi Rueda [address] [place] [address] [place] [address] [place] [address] 06/01/2024 3:40 PM EST Office Visit Neurology [facility] 200 [facility] [place] [address] Uriah De La Rosa MD 200 [facility] [place] [address] 09/22/2024 4:00 PM EST Office Visit Family Practice [facility] 132 [facility] [place] [address] Mukesh Boyd MD 132 [facility] [place] [address] 11/12/2024 8:30 AM EDT Office Visit Rheumatology [address] [place] [address] Vargas Valdez PA-C [address] [place] [address] [place] [address] 02/01/2025 12:20 PM EDT Office Visit Pulmonary Medicine, [facility] 132 [facility] [place] [address] Richie Jackson MD [address] [place] [place] [address] Pending Results Name Type Priority Associated Diagnoses Date /Time PT INR Lab Routine Anticoagulation management encounter 04/22/2024 8:48 AM EDT LIPID PANEL WITH DIRECT LDL IF TG IS HIGH Lab Routine Encounter for long-term (current) use of medications 04/22/2024 8:48 AM EDT Health Maintenance Due Date Last [...] management encounter Encounter for therapeutic drug monitoring Encounter for long-term (current) use of medications Encounter for long-term (current) use of other medications documented in this encounter Advance Directives * Full Code (Latest Code Status on File) Date Activated Date Inactivated Comments 09/17/2018 12:49 AM 09/21/2018 6:13 PM This order r eflects the patients wishes and were consensually agreed upon. Care Teams Platform Operations Director Relationship Specialty Start Date End Date Mukesh Boyd MD 132 [facility] [place] [address] PCP - General Family Medicine 10/28/14 documented as of this encounter
--- OUTSIDE RECORDS SUMMARY | 2024-10-01 05:05 | External Medical Summary ---
Author Name Unknown Address Unknown Organization K0G:[facility] - [address] [place] [address] Laboratory Report Ordering Provider Test Date Status CARLA LEWIS 04/22/2024 08:48:46 Final Standing order for pt/inr. < br/>Please draw pt/inr every 1 to 4 weeks as requested
Results to [facility] Anticoagulation Clinic

Warfarin Therapy
INR: 2.0-3.0 conventional anticoagulation
INR: 2.5-3.5 high intensity anticoagulation Observation Date Value Abnormality Reference (Units ) Status PT 04/22/2024 08:48:46 37.7 Above high normal 11 .6-15.2 (seconds) Final INR 04/22/2024 08:48:46 3.8 Above high normal 0. 8-1.2 Final Performing Location [facility] 0 - [address] [place] [address]
--- OUTSIDE RECORDS SUMMARY | 2024-10-01 05:05 | External Medical Summary | Summary of Care ---
Author Name Unknown Organization [facility] Address [address] [facility] [place] [address] Phone [phone] Care Team Providers Care Air Traffic Control Manager Name Role Phone Mukesh Boyd MD Primary Care Provider + Reason for Visit * Reason Onset Date Comments Protime Testing 05/18/2024 Encounter Details Date Type Department Care Team (Late st Contact Info) Description 05/18/2024 Telephone Centralized Clinical Pharmacy Services, Daysi Rueda [address] [place] [address] [place] [address] Angela Santiago, [facility] [address] [place] [address] Protime Testing Allergies Active Allergy Reactions Criticality Noted Date Comments Tramadol 05/28/2016 Lowers the seizure threshold documented as of this encounter (statuses as of 05/18/2024) Medications Medication Sig Dispensed Refills Start Date [...] as of this encounter (statuses as of 05/18/2024) Active Problems Problem Noted Date Diagnosed Date [...] 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 Jose Antonio Gilmore was discharged from [place] on [place]. During stay he was found [...] rheum, gi? 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 10/05 admit. elev lupus [...] as of this encounter (statuses as of 05/18/2024) Immunizations Name Administration Dates Next Due COVID-19 mRNA, LNP-s, No Pre serve, 2-Dose Series (Offline Media) 11/15/2020,10/25/2020 Covid-19, Mrna, Lnp-s, Pf, B ivalent, [...] Telephone Encounter - Angela Santiago RPh - 05/18/2024 4:26 PM EDT PT/INR Order signed Angela Santiago Rph, Pharm.D. Clinical Pharmacist [facility] ([facility]) [phone] 05/18/2024,4:26 PM documented in this encounter Plan of Treatment Upcoming Encounters Date Type Department Care Team (Late st Contact Info) Description 05/20/2024 8:30 AM EDT Laboratory Laboratory, [facility] 132 [facility] [place] [address] [facility] 132 [facility] [place] [address] 05/21/2024 6:15 AM EDT Anticoagulation [facility], Daysi Rueda [address] [place] [address] [place] [address] [facility], [address] [place] [address] 06/01/2024 3:40 PM EST Office Visit Neurology [facility] 200 [facility] [place] [address] Uriah De La Rosa MD 200 [facility] [place] [address] 09/22/2024 4:00 PM EST Office Visit Family Practice [facility] 132 [facility] [place] [address] Mukesh Boyd MD 132 [facility] [place] [address] 11/12/2024 8:30 AM EDT Office Visit Rheumatology [address] [place] [address] Vargas Valdez PA-C [address] [place] [address] [place] [address] 02/01/2025 12:20 PM EDT Office Visit Pulmonary Medicine, [facility] 132 [facility] [place] [address] RenettaRichie lewis MD [address] [place] [address] Scheduled Orders Name Type Priority Associated Diagnoses Orde r Schedule PT INR Lab Routine Anticoagulation management encounter Other, Please specify in Comments field for 26 Occurrences starting 05/18/2024 until 05/18/2025 Health Maintenance Due Date Last Done Comments [...] this encounter Visit Diagnoses Diagnosis Anticoagulation management encounter- Primary Encounter for therapeutic drug monitoring documented in this encounter Advance Directives * Full Code (Latest Code Status on File) Date Activated Date Inactivated Comments 09/17/2018 12:49 AM 09/21/2018 6:13 PM This order r eflects the patients wishes and were consensually agreed upon. Care Teams Air Traffic Control Manager Relationship Specialty Start Date End Date Mukesh Boyd MD [address] [place] [address] PCP - General Family Medicine 10/28/14 documented as of this encounter
[2024-10-01] MEDS: PIPERACILLIN/TAZOBACTAM 4.5 GM/100 ML BAG IV SCH (05:39)
[2024-10-01 05:53] LABS: Basophils # (auto) 0.04 K/uL (0.00-0.20); Basophils % (auto) 0.7 %; Eosinophils # (auto) 0.08 K/uL (0.00-0.50); Eosinophils % (auto) 1.4 %; Hematocrit (blood only) 43.7 % (42.0-52.0); Hemoglobin 15.4 g/dl (14.0-18.0); Immature Granulocytes # (auto) 0.02 K/uL (0.01-0.20); Immature Granulocytes % (auto) 0.4 %; Mean Corpuscular Hemoglobin 29.1 pg (25.0-34.0); Mean Corpuscular Hgb Conc 35.2 g/dL (32.0-36.0); Mean Corpuscular Volume 82.5 fL (80.0-100.0); Mean Platelet Volume 9.6 fL (9.4-12.4); Monocytes # (auto) 0.57 K/uL (0.11-0.59); Neutrophils # (auto) 4.19 K/uL (1.40-6.50); Neutrophils % (auto) 73.5 %; Platelet Count 188 K/uL (130-400); RDW Coefficient of Variation 11.9 % (11.5-14.5)
[2024-10-01 06:10] LABS: BUN Creatinine Ratio 20.5 (10-20); Calcium 8.9 mg/dl (8.6-10.3); Creatinine Clr Calc Pharmacy 152.7 ml/min; Magnesium 1.6 mg/dl (1.7-2.4); Potassium 3.7 mmol/L (3.5-5.1)
[2024-10-01 06:21] LABS: INR 2.7 (0.9-1.1); Prothrombin Time 26.9 Seconds (9.0-12.0)
[2024-10-01] MEDS: MAGNESIUM SULFATE / D5W 1 GM/100 ML BAG IV ONE (07:43)
[2024-10-01] MEDS: FLUTICASONE/VILANTEROL 200/25MCG 14 PUFFS/INHALER INH SCH (07:46)
[2024-10-01] MEDS: ASPIRIN 81 MG ECTAB PO SCH (07:47)
[2024-10-01] MEDS: ATORVASTATIN 40 MG TAB PO SCH (07:47)
[2024-10-01] MEDS: lamoTRIgine 100 MG TAB PO SCH (07:47)
[2024-10-01] MEDS: LACOSAMIDE 50 MG TABLET PO SCH (08:07)
--- NOTE | 2024-10-01 11:04 | Oral/Maxillofacial Consult ---
Date of Consultation October 01, 2024 Assessment & Plan (1) Dental abscess: (2) Facial swelling: (3) Anticoagulated on Coumadin: History of Present Illness Attending Physician: Vera Bliss MD History of Present Illness Oral Maxillofacial Surgery Exam Present Complaint: I have pain/swelling/drainage from my infected teeth. Symptoms have been ongoing for a while. This 34-year-old male patient presents emergency department with his father for evaluation of a dental infection spreading to his face. The patient states that he has had a bad tooth on the left upper part of his mouth. It is now infected and spreading to the left side of his face. He has had facial swelling and pain. He denies any fevers. No discharge from the mouth. No change in his vision or hearing. He does have some pain with swallowing, but is still able to swallow. He believes that a filling fell off 4 days ago when the symptoms started. Tooth # 10 is the problem--radiolucent area at apex He went to [facility] today and was given a prescription for Augmentin. However, he had rapid onset of swelling to the face after his first dose of Augmentin. Denies any chest pain, shortness of breath, abdominal pain, nausea, or vomiting. The patient is on Coumadin due to history of his lupus causing blood clots-it is now being held. Oral Exam: Finding-overall very good oral care Main problem is an abscessed # 10 as seen on the CT scan No teeth need to be removed. To treat # 10 I&D oral antibiotics. need to see dentist for root canal once the acute phase has passed Based on the CT there looks to be an abscessed # 10 which is the etiology of the current infection- Imaging: CT scan reviewed The TMJ are well positioned and no evidence of bony pathology. The sinus, supporting bone all WNL there is some Mucosal disease of the left maxillary sinus. # 10 left lateral incisor of the maxilla with cortical dehiscence along the buccal margin of the maxilla. At this site, there is a 1.3 cm area of hypodensity with overlying phlegmon- swelling involving upper lip, nasolabial fold and infrorbital area to lower lid left eye CT NECK WITH IV CONTRAST: INDICATION: PAIN FINDINGS: There is a periodontal disease involving left lateral incisor of the maxilla with cortical dehiscence along the buccal margin of the maxilla. At this site, there is a 1.3 cm area of hypodensity with overlying phlegmon. PHARYNX: The appearances of linda-, naso-, and para-pharyngeal spaces are within normal limits. LARYNX: The laryngeal structures appear unremarkable. INFRAHYOID NECK: The prevertebral soft tissues and airways are maintained LYMPH NODES: Scattered and small lymph nodes in the neck are noted, size insignificant. Appearances of the visceral structures, including parotid, submandibular and thyroid glands appear within normal limits. SKELETAL: Unremarkable. VASCULAR: The vascular structures appear intact. OTHER: No significant abnormality identified in the partially visualized brain. There are patchy groundglass densities in the right upper lobe of the lung. Mucosal disease of the left maxillary sinus. 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 Mucosal disease of the left maxillary sinus. Soft tissue: The floor of the mouth, tongue, hard/soft palate, posterior pharyngeal area all with in normal limits, no pathology or abnormal findings noted. There is a periodontal disease involving left lateral incisor of the maxilla with cortical dehiscence along the buccal margin of the maxilla. At this site, there is a 1.3 cm area of hypodensity with overlying phlegmon. Oral Care: Overall oral care is good Occlusion: Class I TMJ exam: No pop, clicking, pain, good ROM, No history of TMJ injury or dysfunction Periodontal exam: There is no evidence of significant periodontal pathology. Head/Neck exam: Anterior left upper lip and face is swollen, Neck is supple, FROM, Able to extend and flex neck w/o difficulty, no masses, no abnormalities, no airway issues. Treatment Plan: Adjust INR t at least 2 For I&D tomorrow Set up with general anesthesia in hospital complexity of the procedure I reviewed the treatment plan and consent with the patient . Understanding was expressed. Time was given for questions regarding the surgery, risks and post op care. Discussed alternative to treatment--procedure as planned, Do not do surgery # 0 will need root canal in the future once acute phase is over Risks discussed: Bleeding,Pain,swelling,infection, delayed healing, nerve injury to face,lips,tongue,chin area which could be permanent (rare). TMJ, jaw stiffness, change in bite (rare), ear pain (referred). Sinus problems like fistula or infection. Home care reviewed: Need to follow up for routine dental are and follow up care with Dr Lee. Need for Root canal # 10 Surgery to be set up for Saturday AM Allergies Allergy/AdvReac Type Severity Reaction Status Date / Time tramadol AdvReac Severe Seizure Verified 10/01/24 10:43 Home Medications Medication Instructions Recorded Confirmed Type atorvastatin 40 mg tablet (Lipitor) 40 mg PO QAM 06/17/18 09/30/24 History hydroxychloroquine 200 mg tablet 400 mg PO HS 06/17/18 09/30/24 History (Plaquenil) lamotrigine 100 mg tablet 300 mg PO BID 06/17/18 09/30/24 History (Lamictal) warfarin 7.5 mg tablet See Rx Instructions .Route .COMPLEX 09/15/18 09/30/24 History lacosamide 50 mg tablet (Vimpat) 50 mg PO AMHS 12/07/21 09/30/24 History acetaminophen 325 mg tablet 650 mg PO Q6 PRN Pain 09/30/24 09/30/24 History albuterol sulfate 90 mcg/actuation 2 puff inhalation Q4 PRN DYSPNEA 09/30/24 09/30/24 History aerosol inhaler OR WHEEZING amoxicillin 875 mg-potassium 1 tab PO AMHS 09/30/24 09/30/24 History clavulanate 125 mg tablet aspirin 81 mg tablet,delayed 81 mg PO QAM 09/30/24 09/30/24 History release cyclobenzaprine 10 mg tablet 10 mg PO HS PRN Muscle Spasm 09/30/24 09/30/24 History fluticasone propionate 50 2 spray intranasal DAILY PRN NASAL 09/30/24 09/30/24 History mcg/actuation nasal SYMPTOMS spray,suspension latanoprost 0.005 % eye drops 1 drp OPB HS 09/30/24 09/30/24 History mometasone-formoterol HFA 100 2 puff inhalation AMHS 09/30/24 09/30/24 History mcg-5 mcg/actuation aerosol inhaler (Dulera) Patient History Medical History Failing root canal Dental infection Cellulitis of neck Lupus Pulmonary alveolar hemorrhage Libman Sacks endocarditis Heart valve vegetation Antiphospholipid antibody with hypercoagulable state History of pulmonary embolism Anticoagulated Transaminitis History of stroke Depression Epilepsy Surgical History History of incision and drainage (12/05/21) p Incision and Drainage of Right Trinity of Mouth/Submandibular Area(Right) - Payam Lee DMD s Infection and Extraction of Tooth #31(Right) - Payam Lee DMD H/O wisdom tooth extraction Family History Mother Depression Father MATT (obstructive sleep apnea) Social History Smoking Status: Former smoker Tobacco Type: Cigarettes Second Hand Exposure: No; Do You Dip or Chew Tobacco: No; Hx Alcohol Use: Yes Alcohol type: hard liquor Hx Substance Use: Yes Last Used Substance: Unknown Last Used Substance Other:: states smokes marijuana nightly Substance Use Type Other:: daily medical marijuana Preferred Language: Kazakh Communication Ability: Effective Visual Impairment: No Limitations Hearing Ability: Normal Commercial Credit Specialist Required: No Beliefs That Will Affect Care: None Current Living Situation: Parent Current Living Situation Comment: with parents current occupational status: student How many Children do You have: 0 Feels Safe at Home: Yes Assistive Devices: None Results & Data Vital Signs (Past 12 Hours) Vital Signs Temp Pulse Pulse Resp BP BP Pulse Ox 10/01/24 08:08 36.9 C 75 24 148/83 H 95 10/01/24 02:25 36.7 C 80 16 137/94 96 10/01/24 00:54 70 20 145/111 H 92 10/01/24 00:30 64 23 171/105 H 94 10/01/24 00:00 65 23 162/98 H 93 09/30/24 23:50 61 21 157/92 H 93 O2 Del Method 10/01/24 08:08 Room Air 10/01/24 02:25 Room Air 10/01/24 00:54 Room Air 10/01/24 00:30 Room Air 10/01/24 00:00 Room Air 09/30/24 23:50 Room Air PG Care Time/CCT Total # of Minutes Spent Total Time Spent with Patient: Total time spent is greater than 50% in coordination of care (as documented) at patient's floor/unit and/or counseling patient: Coding Level of Care Code 10555 INT INP/OBS CARE 40MIN Diagnoses Dental abscess K04.7 Facial swelling R22.0 Anticoagulated on Coumadin Z79.01
--- NOTE | 2024-10-01 11:12 | Hospitalist Progress Note ---
Date of Service October 01, 2024 Assessment & Plan (1) Dental abscess: (2) Antiphospholipid antibody with hypercoagulable state: (3) Lupus (systemic lupus erythematosus): (4) Interstitial lung disease: (5) Epilepsy: (6) History of stroke: Plan Jose Antonio is a 34 year old male with PMH significant for antiphospholipid syndrome on warfarin, SLE, interstitial lung disease, RAD, and epilepsy who presented to the ED yesterday for facial swelling and pain. He recently lost the filling on his left upper tooth and went to urgent care when he started experiencing pain at that tooth. He was prescribed Augmentin and had an appointment with his dentist today, but started experiencing facial swelling last night which prompted him to come to the ED. In the ED, he underwent a soft tissue neck CT which demonstrated periodontal disease with suspected abscess formation as well as patchy groundglass densities in the right upper lung lobe. A CXR was obtained which demonstrated peribronchial thickening and a right pulmonary infiltrate. He was started on IV zosyn and doxycycline and oral surgery has been consulted for further evaluation and management. 1. Dental abscess Acute problem. Oral surgery consulted and planning for I&D tomorrow AM in the OR pending INR level. Pain management with scheduled IV tylenol and PRN IV morphine. Vitamin K 5mg IV x1 dose administered in order to hopefully achieve goal INR of <2 for I&D tomorrow per Dr. Lee. Patient updated on plan this aft kajal and agreeable to plan. 2. Antiphospholipid syndrome Chronic, stable. On warfarin at home but currently on hold for OR tomorrow. PTT 26.9 sec and PT/INR 2.7 this am. Monitor PT/INR qAM. 3. SLE Chronic, stable. On hydroxychloroquine at home. Currently on hold. 4. Interstitial lung disease Chronic, stable. Continue inhalers. 5. Epilepsy Chronic, stable. Continue lacosamide and lamotrigine. 6. History of CVA Continue ASA and statin. DVT Prophylaxis: on warfarin currently holding for OR Code Status: FULL CODE - As per discussion at bedside with the patient. PCP: Dr. Mukesh Boyd MD Disposition: Not medically cleared for discharge. Plan for I&D in OR tomorrow. Patient seen in collaboration with Dr Bliss. Please see addendum. I spent a total of 50 minutes coordinating, documenting and providing care for this patient excluding time spent in the performance of separately billed services or time spent by another provider/QHP. 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 He is complaining of pain in his left upper oral cavity and discomfort with his left facial swelling. He denies fevers, chills, difficulty swallowing, chest pain, SOB, abdominal pain, N/V/D. He had a bowel movement overnight. He is currently NPO on IV fluids. Review of Systems Review of Systems: All systems reviewed & are unremarkable except as noted in HPI & below Physical Exam Physical Exam: VITALS: Reviewed and VSS. GEN: Healthy appearing, well-developed, male, NAD. PSYCH: Good Judgment. AOx3. Normal memory, mood, and affect. HEENT: Head NC/AT. Left facial swelling and erythema present. Left upper oral cavity erythema and swelling present. NECK: Supple, with no masses. CV: RRR, no m/r/g. LUNGS: CTAB, no w/r/c. ABD: Soft, NT/ND, NBS, no masses or organomegaly. SKIN: Warm, well perfused. No skin rashes or abnormal lesions. MSK: No deformities, Normal gait. EXT: No clubbing, cyanosis, or edema. NEURO: Ambulating with no limitations. Normal muscle strength and tone. No focal deficits. Results & Data Results & Data Vital Signs (Past 12 Hours) Vital Signs Temp Pulse Pulse Resp BP BP Pulse Ox 10/01/24 08:08 36.9 C 75 24 148/83 H 95 10/01/24 02:25 36.7 C 80 16 137/94 96 10/01/24 00:54 70 20 145/111 H 92 10/01/24 00:30 64 23 171/105 H 94 10/01/24 00:00 65 23 162/98 H 93 09/30/24 23:50 61 21 157/92 H 93 O2 Del Method 10/01/24 08:08 Room Air 10/01/24 02:25 Room Air 10/01/24 00:54 Room Air 10/01/24 00:30 Room Air 10/01/24 00:00 Room Air 09/30/24 23:50 Room Air Laboratory Results Short CBC 09/30/24 10/01/24 Range/Units 19:07 05:26 WBC 8.79 5.70 (4.8-10.8) K/ul Hgb 16.6 15.4 (14.0-18.0) g/dl Hct 46.9 43.7 (42.0-52.0) % Plt Count 218 188 (130-400) K/uL BMP 09/30/24 10/01/24 19:07 05:26 Sodium 136 138 Potassium 3.7 3.7 Chloride 101 105 Carbon Dioxide 30 28 BUN 20 16 Creatinine 0.90 0.78 Glucose 97 96 Calcium 10.0 8.9 Liver Function 09/30/24 Range/Units 19:07 Total Bilirubin 1.2 H (0.2-1.0) mg/dl AST 26 (13-39) U/L ALT 55 H (7-52) U/L Alkaline Phosphatase 100 (34-104) U/L Albumin 4.9 (3.4-5.0) gm/dl I have independently reviewed and interpreted patient's admitting labs including CBC, BMP, PTT, PT/INR. Diagnostic Findings Soft Tissue Neck CT 09/30/24 18:57 CT NECK WITH IV CONTRAST: INDICATION: PAIN TECHNIQUE: CT examination of the neck was performed following administration of the intravenous contrast. IV CONTRAST: 100 mL of OMNIPAQUE 300 FINDINGS: There is a periodontal disease involving left lateral incisor of the maxilla with cortical dehiscence along the buccal margin of the maxilla. At this site, there is a 1.3 cm area of hypodensity with overlying phlegmon. PHARYNX: The appearances of linda-, naso-, and para-pharyngeal spaces are within normal limits. LARYNX: The laryngeal structures appear unremarkable. INFRAHYOID NECK: The prevertebral soft tissues and airways are maintained LYMPH NODES: Scattered and small lymph nodes in the neck are noted, size insignificant. Appearances of the visceral structures, including parotid, submandibular and thyroid glands appear within normal limits. SKELETAL: Unremarkable. VASCULAR: The vascular structures appear intact. OTHER: No significant abnormality identified in the partially visualized brain. Mucosal disease of the left maxillary sinus. There are patchy groundglass densities in the right upper lobe of the lung. 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 Patchy groundglass densities in the right upper lobe of the lung representing pneumonia. Electronically signed by Jose Singh 09-30-2024 8:27 PM Chest X-Ray 09/30/24 20:45 CR Exam(s): XR CXR 1 VIEW EXAM: XR Chest, 1 View CLINICAL HISTORY: Reason for exam: eval pneumonia seen on CT neck. TECHNIQUE: Frontal view of the chest. COMPARISON: Prior chest x-ray from May 07, 2022. FINDINGS: Lungs: Moderate peribronchial thickening of the central bronchi with patchy opacity in the right lung. Increased interstitial opacities in the left lower lobe. Pleural space: Blunting of the costophrenic angles. No pneumothorax. Heart: Unremarkable. No cardiomegaly. Mediastinum: Unremarkable. Normal mediastinal contour. Bones/joints: Unremarkable. No acute fracture. IMPRESSION: Bronchitis with right pulmonary infiltrate. Communications: Verify Receipt Electronically signed by: Tamra Cadena MD 09/30/24 23:21 PM Medications Administered Current Inpatient Medications Albuterol (Albuterol Hfa 8 Gm Inhaler) 2 puffs INH Q4 PRN PRN Reason: DYSPNEA OR WHEEZING Stop: 10/31/24 02:44 Aspirin (Aspirin 81 Mg Ectab) 81 mg PO QAM [facility] Stop: 10/31/24 08:59 Last Admin: 10/01/24 07:47 Dose: 81 mg Atorvastatin Calcium (Atorvastatin 40 Mg Tab) 40 mg PO QAM [facility] Stop: 10/31/24 08:59 Last Admin: 10/01/24 07:47 Dose: 40 mg Cyclobenzaprine HCl (Cyclobenzaprine Hcl 10 Mg Tab) 10 mg PO HS PRN PRN Reason: Muscle Spasm Stop: 10/31/24 02:44 Last Admin: 10/01/24 03:21 Dose: 10 mg Fluticasone Propionate (Fluticasone Propionate Na Spr 16 Gm Btl) 2 sprays NA DAILY PRN PRN Reason: NASAL SYMPTOMS Stop: 10/31/24 02:44 Fluticasone/Vilanterol (Fluticasone/Vilanterol 200/25mcg 14 Puffs/Inhaler) 1 puffs INH DAILY [facility] Stop: 10/31/24 08:59 Last Admin: 10/01/24 07:46 Dose: 1 puffs Acetaminophen (Ofirmev) 1,000 mg in 100 mls @ 400 mls/hr IV Q8H PRN PRN Reason: Pain or Fever Stop: 10/04/24 02:44 Last Infusion: 10/01/24 05:07 Dose: Infused Piperacillin Sod/Tazobactam Sod (Zosyn) 4.5 gm in 100 mls @ 25 mls/hr IV Q8H [facility]; Protocol Stop: 10/08/24 03:59 Last Infusion: 10/01/24 09:41 Dose: Infused Doxycycline Hyclate 100 mg/ (Dextrose) 100 mls @ 50 mls/hr IV Q12H [facility] Stop: 10/06/24 17:59 Sodium Chloride (Nss) 1,000 mls @ 125 mls/hr IV .Q8H [facility] Stop: 10/02/24 02:44 Last Admin: 10/01/24 10:43 Dose: 125 mls/hr Lacosamide (Lacosamide 50 Mg Tablet) 50 mg PO AMHS [facility] Stop: 10/31/24 08:59 Last Admin: 10/01/24 08:07 Dose: 50 mg Lamotrigine (Lamotrigine 100 Mg Tab) 300 mg PO BID [facility]; Protocol Stop: 10/31/24 08:59 Last Admin: 10/01/24 07:47 Dose: 300 mg Latanoprost (Latanoprost 0.005% Op Soln 2.5 Ml Btl) 1 drops OPB HS [facility] Stop: 10/31/24 20:59 (3) Lupus (systemic lupus erythematosus) Systemic lupus erythematosus organ involvement: unspecified Systemic lupus erythematosus type: unspecified Qualified Code(s): M32.9 - Systemic lupus eryth ematosus, unspecified
[2024-10-01] MEDS ORDERED: CHLORHEXIDINE GLUCONATE 0.12% 480 ML MT PRN (12:40)
[2024-10-01] MEDS: MoRPHine SULFATE 2 MG/ML CARP IV PRN (12:50)
[2024-10-01] MEDS: PHYTONADIONE 5 MG in DEXTROSE 5% 50 ML IV ONE (14:20)
[2024-10-01] MEDS: DOXYCYCLINE HYCLATE 100 MG in DEXTROSE 5% MINI-B 100 ML IV SCH (17:42)
[2024-10-01] MEDS: LATANOPROST 0.005% OP SOLN 2.5 ML BTL OPB SCH (20:41)
[2024-10-02] MEDS ORDERED: LIDOCAINE 2% 2 ML VIAL/AMP(20MG/ML) INFIL ONE (07:28)
[2024-10-02] MEDS ORDERED: PROPOFOL IV EMULSION 10 MG/ML 20 ML VIAL IV ONE (07:28)
[2024-10-02] MEDS ORDERED: ONDANSETRON INJ 2 MG/ML 2 ML VIAL ONE (07:28)
[2024-10-02] MEDS ORDERED: ROCURONIUM BROMIDE 10 MG/ML 5 ML VIAL IV ONE (07:28)
[2024-10-02] MEDS ORDERED: DEXAMETHASONE SOD INJ 4 MG/ML VIAL ONE (07:28)
[2024-10-02 07:38] LABS: INR 1.2 (0.9-1.1)
--- NOTE | 2024-10-02 08:33 | Anesthesiology Consultation ---
Date of Service October 02, 2024 Assessment & Plan Chart Review Chart Review: Acceptable Risk for Surgery and Patient NOT seen in Pre Admission Testing Consults Requested none ASA ASA3 Proposed Anesthesia Anesthesia Type: General History Surgery Operation Date: 10/02/24 08:40 Proposed Procedures p Left Nasolabial Area Incision and Drainage - Payam Lee, MATTHEW Height/Weight Height: 5 ft 8 in Weight: 97.8 kg Allergies Allergy/AdvReac Type Severity Reaction Status Date / Time tramadol AdvReac Severe Seizure Verified 10/01/24 10:43 Medications Home Medications Medication Instructions Recorded Confirmed Last Taken atorvastatin 40 mg tablet (Lipitor) 40 mg PO QAM 06/17/18 09/30/24 02/01/23 hydroxychloroquine 200 mg tablet 400 mg PO HS 06/17/18 09/30/24 01/31/23 (Plaquenil) lamotrigine 100 mg tablet 300 mg PO BID 06/17/18 09/30/24 02/01/23 (Lamictal) warfarin 7.5 mg tablet See Rx Instructions .Route .COMPLEX 09/15/18 09/30/24 01/31/23 lacosamide 50 mg tablet (Vimpat) 50 mg PO AMHS 12/07/21 09/30/24 02/01/23 acetaminophen 325 mg tablet 650 mg PO Q6 PRN Pain 09/30/24 09/30/24 Unknown albuterol sulfate 90 mcg/actuation 2 puff inhalation Q4 PRN DYSPNEA 09/30/24 09/30/24 Unknown aerosol inhaler OR WHEEZING amoxicillin 875 mg-potassium 1 tab PO AMHS 09/30/24 09/30/24 Unknown clavulanate 125 mg tablet aspirin 81 mg tablet,delayed 81 mg PO QAM 09/30/24 09/30/24 Unknown release cyclobenzaprine 10 mg tablet 10 mg PO HS PRN Muscle Spasm 09/30/24 09/30/24 Unknown fluticasone propionate 50 2 spray intranasal DAILY PRN NASAL 09/30/24 09/30/24 Unknown mcg/actuation nasal SYMPTOMS spray,suspension latanoprost 0.005 % eye drops 1 drp OPB HS 09/30/24 09/30/24 Unknown mometasone-formoterol HFA 100 2 puff inhalation AMHS 09/30/24 09/30/24 Unknown mcg-5 mcg/actuation aerosol inhaler (Dulera) Active Medications Generic Name Dose Route Start Last Admin Trade Name Freq PRN Reason Stop Dose Admin Aspirin 81 mg 10/01/24 09:00 10/02/24 08:14 Aspirin 81 Mg Ectab PO 10/31/24 08:59 81 mg QAM NERIS[facility] Administration Atorvastatin Calcium 40 mg 10/01/24 09:00 10/02/24 08:15 Atorvastatin 40 Mg Tab PO 10/31/24 08:59 40 mg QAM [facility] Administration Cyclobenzaprine HCl 10 mg 10/01/24 02:45 10/01/24 03:21 Cyclobenzaprine Hcl 10 Mg Tab PO 10/31/24 02:44 10 mg HS PRN Administration Muscle Spasm Fluticasone/Vilanterol 1 puffs 10/01/24 09:00 10/02/24 08:14 Fluticasone/Vilanterol 200/25mcg 14 Puffs/Inhaler INH 10/31/24 08:59 1 puffs DAILY NERISSA Administration Acetaminophen 1,000 mg in 100 mls @ 400 mls/hr 10/01/24 02:45 10/01/24 22:58 Ofirmev IV 10/04/24 02:44 Infused Q8H PRN Infusion Pain or Fever Piperacillin Sod/Tazobactam Sod 4.5 gm in 100 mls @ 25 mls/hr 10/01/24 04:00 10/02/24 06:38 Zosyn IV 10/08/24 03:59 25 mls/hr Q8H [facility] Administration Protocol Doxycycline Hyclate 100 mg/ 100 mls @ 50 mls/hr 10/01/24 18:00 10/02/24 06:38 Dextrose IV 10/06/24 17:59 0 mls/hr Q12H [facility] Infusion Lacosamide 50 mg 10/01/24 09:00 10/02/24 08:13 Lacosamide 50 Mg Tablet PO 10/31/24 08:59 50 mg AMHS NERISSA Administration Lamotrigine 300 mg 10/01/24 09:00 10/02/24 08:15 Lamotrigine 100 Mg Tab PO 10/31/24 08:59 300 mg BID [facility]ER[facility] Administration Protocol Latanoprost 1 drops 10/01/24 21:00 10/01/24 20:41 Latanoprost 0.005% Op Soln 2.5 Ml Btl OPB 10/31/24 20:59 1 drops HS [facility] Administration Morphine Sulfate 2 mg 10/01/24 11:44 10/02/24 08:19 Morphine Sulfate 2 Mg/Ml Carp IV 10/15/24 11:43 2 mg Q6 PRN Administration Mod-Sev Pain (Scale 4-10) Past Medical History Medical History Failing root canal Dental infection Cellulitis of neck Lupus Pulmonary alveolar hemorrhage Sofya Sacks endocarditis Heart valve vegetation Antiphospholipid antibody with hypercoagulable state History of pulmonary embolism Anticoagulated Transaminitis History of stroke Depression Epilepsy Hx/o endocarditis obese uses marijuana epilepsy/seizures s/p CVA Hx/o DVT/PE interstitial lung disease Exercise / Class Metabolic Activity III < 4 Walking/Shop/Light housework Past Family History Family History Mother Depression Father MATT (obstructive sleep apnea) Past Surgical History Surgical History History of incision and drainage (12/05/21) p Incision and Drainage of Right Trinity of Mouth/Submandibular Area(Right) - Payam Lee DMD s Infection and Extraction of Tooth #31(Right) - Payam Lee DMD Past Anesthesia History No Hx of Anesthesia Complications and No Family Hx of Anesthesia Complications History of PONV No Hx of PONV and No Hx of Motion Sickness Social History Smoking Status: Former smoker Do You Dip or Chew Tobacco: No Smoking End Date: 10 years ago Hx Alcohol Use: Yes Alcohol type: hard liquor alcohol intake frequency: a few times a week Hx Substance Use: Yes substance use type: marijuana Substance Use Type Other:: daily medical marijuana Last Used Substance: Unknown Last Used Substance Other:: states smokes marijuana nightly Physical Exam Vital Signs Last Vital Signs Temp 36.3 C L 10/02/24 07:10 Pulse 67 10/02/24 07:10 Resp 18 10/02/24 07:10 BP 112/79 10/02/24 07:10 Pulse Ox 98 10/02/24 07:10 O2 Del Method Room Air 10/02/24 07:10 Testing Laboratory Results 10/01/24 05:26 10/01/24 05:26 PT 13.0 Seconds (9.0-12.0) H 10/02/24 06:27 INR 1.2 (0.9-1.1) H 10/02/24 06:27 APTT 43 Seconds (21-31) H 09/30/24 19:07 Electrocardiogram Date: 12/09/22 Findings: + NSR @ (@ 64) Chest X-Ray Date: 09/30/24 Findings: + infiltrate (right lung) Echocardiogram Date: 06/22/18 EF: 65% LV Function: normal RWMA: + none Valvular Disease: + no significant valvular disease MR is no longer present AML w/ slight increased thickness c/w healed endocarditis mobile lesion is no longer present
[2024-10-02 08:57] LABS: Hematocrit (blood only) 43.2 % (42.0-52.0); Hemoglobin 15.4 g/dl (14.0-18.0); Mean Corpuscular Hemoglobin 29.6 pg (25.0-34.0); Mean Corpuscular Hgb Conc 35.6 g/dL (32.0-36.0); Mean Corpuscular Volume 82.9 fL (80.0-100.0); Mean Platelet Volume 9.9 fL (9.4-12.4); Platelet Count 192 K/uL (130-400); RDW Coefficient of Variation 12.1 % (11.5-14.5); RDW Standard Deviation 36.6 fL (36.4-46.3); Red Blood Count 5.21 M/uL (4.70-6.10); White Blood Count 4.59 K/ul (4.8-10.8)
[2024-10-02 09:00] LABS: BUN Creatinine Ratio 13.1 (10-20); Calcium 8.8 mg/dl (8.6-10.3); Creatinine Clr Calc Pharmacy 141.8 ml/min; Potassium 3.7 mmol/L (3.5-5.1)
[2024-10-02] MEDS: LACTATED RINGER'S 1,000 ML IV SCH (09:04)
[2024-10-02] MEDS ORDERED: fentaNYL citrate PF 100 MCG/2 ML VIAL ONE ×2 (09:14→09:55)
[2024-10-02] MEDS ORDERED: MIDAZOLAM HCL 1 MG/ML 2ML VIAL ONE (09:14)
--- NOTE | 2024-10-02 09:19 | History & Physical Bridge Note ---
Date of Service October 02, 2024 History & Physical Bridge Note I have examined the patient, reviewed the History & Physical and in the interval since the performance of the History & Physical I have noted the following changes of clinical significance: no changes noted. OK for the planned I&D this AM
[2024-10-02] MEDS ORDERED: SUCCINYLCHOLINE CHLORIDE 20 MG/ML 10 ML VIAL IV ONE (09:57)
[2024-10-02] MEDS: BUPIVACAINE/EPINEPHRINE 0.5% 1:200,000 1.8 ML CARP ONE (10:07)
--- NOTE | 2024-10-02 10:15 | Post Operative Brief Note ---
PG Immediate Post Op with CF Date of Surgery October 02, 2024 Pre & Post Diagnosis Operation Date: 10/02/24 08:40 Pre-Op Diagnosis: Dental Infection, Facial Cellulitis Post-Op Diagnosis: Dental Infection, Facial Cellulitis I identified the patient and participated in the time-out.: Yes Procedure Operation Date: 10/02/24 08:40 Actual Procedures p Incision and Drainage of Left Intraorbital Abscess and Mucobuccal Fold(Left) - Payam Lee, MATTHEW Surgeon Payam Lee, MATTHEW Software Reliability Engineer none Estimated Blood Loss 5 Findings Consistent with Post-Op Diagnosis swelling infraorbital and nasolabial fold upper left Specimens Specimen Description: 1. Left Nasolabial Area swabbed for routine C&S, anaerobic, aerobic and gram stain Anesthesia Type General Disposition Accompanied Patient To Recovery: Yes
[2024-10-02] MEDS: fentaNYL citrate PF 100 MCG/2 ML VIAL IV PRN (10:35)
[2024-10-02] MEDS ORDERED: ATROPINE SULFATE 0.1 MG/ML 10ML SYR IV PRN (10:36)
[2024-10-02] MEDS ORDERED: FLUMAZENIL 0.1 MG/1 ML 10 ML VIAL IV PRN (10:36)
[2024-10-02] MEDS ORDERED: HYDROmorphone INJ 1 MG/ML SYRINGE IV PRN (10:36)
[2024-10-02] MEDS ORDERED: PROMETHAZINE HCL 6.25 MG in SODIUM CHLORIDE 0.9% 50 ML IV PRN (10:36)
[2024-10-02] MEDS ORDERED: LABETALOL HCL IV 5 MG/ML 20ML IV PRN (10:36)
[2024-10-02] MEDS ORDERED: NALOXONE HCL 0.4 MG/1 ML VIAL/CARP IV PRN (10:36)
[2024-10-02] MEDS ORDERED: ePHEDrine sulfate 50 MG/ML AMP IV PRN (10:36)
[2024-10-02] MEDS: fentaNYL citrate PF 100 MCG/2 ML VIAL ONE (10:46)
[2024-10-02] MEDS: hydrALAZINE HCL 20 MG/ML VIAL IV STA (11:14)
[2024-10-02] MEDS: hydrALAZINE HCL 20 MG/ML VIAL ONE (11:15)
--- NOTE | 2024-10-02 11:50 | Anesthesiology Progress Note ---
Date of Service October 02, 2024 Anesthesia Post Procedure Vital Signs Vital Signs: Temp Pulse Pulse Resp BP Pulse Ox O2 Del Method 10/02/24 11:20 68 12 153/91 H 95 Room Air 10/02/24 11:10 36.4 C L 63 12 177/98 H 95 Room Air 10/02/24 11:00 63 12 165/95 H 98 Room Air 10/02/24 10:50 64 12 160/91 H 94 Oxymask 10/02/24 10:40 70 16 167/106 H 95 Oxymask 10/02/24 10:30 36.3 C L 78 20 156/107 H 94 Oxymask 10/02/24 08:39 36.7 C 75 18 148/89 H 94 Room Air 10/02/24 07:10 36.3 C L 67 18 112/79 98 Room Air 10/01/24 19:52 36.7 C 81 16 153/94 H 94 Room Air 10/01/24 15:51 37 C 72 24 143/78 H 95 Room Air O2 Flow Rate 10/02/24 11:20 10/02/24 11:10 10/02/24 11:00 10/02/24 10:50 3 10/02/24 10:40 6 10/02/24 10:30 6 10/02/24 08:39 10/02/24 07:10 10/01/24 19:52 10/01/24 15:51 Pain Intensity Face: Pain Intensity: 5 Throat: Pain Intensity: 2 Transfer of Care Handoff Completed per policy Notes Mental Status: alert / awake / arousable Patient Amnestic to Procedure: Yes Nausea / Vomiting: adequately controlled Pain: adequately controlled Airway Patency, RR, SpO2: stable & adequate BP & HR: stable & adequate Hydration State: stable & adequate Anesthetic Complications: no major complications apparent
[2024-10-02] MEDS: MoRPHine SULFATE 2 MG/ML CARP IV STA (12:17)
[2024-10-02] MEDS: ONDANSETRON INJ 2 MG/ML 2 ML VIAL IV PRN (12:39)
--- NOTE | 2024-10-02 13:40 | Hospitalist Progress Note ---
Date of Service October 02, 2024 Assessment & Plan (1) Dental abscess: (2) Pneumonia: (3) Antiphospholipid antibody with hypercoagulable state: (4) Lupus (systemic lupus erythematosus): (5) Interstitial lung disease: (6) Epilepsy: (7) History of stroke: Joselito Brady is a 34 year old male with PMH significant for antiphospholipid syndrome on warfarin, SLE, interstitial lung disease, RAD, and epilepsy who presented to the ED yesterday for facial swelling and pain. He recently lost the filling on his left upper tooth and went to urgent care when he started experiencing pain at that tooth. He was prescribed Augmentin and had an appointment with his dentist today, but started experiencing facial swelling last night which prompted him to come to the ED. In the ED, he underwent a soft tissue neck CT which demonstrated periodontal disease with suspected abscess formation as well as patchy groundglass densities in the right upper lung lobe. A CXR was obtained which demonstrated peribronchial thickening and a right pulmonary infiltrate. He was started on IV zosyn and doxycycline and oral surgery has been consulted for further evaluation and management. 1. Dental abscess Acute problem. Underwent I&D this morning in the OR. Continue IV zosyn. Pain management with scheduled IV tylenol and PRN IV morphine. 2. Pneumonia Acute problem. Asymptomatic on RA. Continue IV doxycycline due to coinciding dental abscess and immunocompromised status. 2. Antiphospholipid syndrome Chronic, stable. On warfarin at home but currently on hold until discharge tomorrow. Monitor PTT and PT/INR qAM. 3. SLE Chronic, stable. On hydroxychloroquine at home. Currently on hold. 4. Interstitial lung disease Chronic, stable. Continue inhalers. 5. Epilepsy Chronic, stable. Continue lacosamide and lamotrigine. 6. History of CVA Continue ASA and statin. DVT Prophylaxis: on warfarin currently holding until dc tomorrow Code Status: FULL CODE - As per discussion at bedside with the patient. PCP: Dr. Mukesh Boyd MD Disposition: Planning for discharge tomorrow. Patient seen in collaboration with Dr Bliss. Please see addendum. I spent a total of 50 minutes coordinating, documenting and providing care for this patient excluding time spent in the performance of separately billed services or time spent by another provider/QHP. Admission and Anticipated Discharge Date Admission Date: September 30, 2024 Supervising Physician Co-Signing Physician Notes Patient seen and examined on return from OR Had Incision and Drainage of Left Intraorbital Abscess and Mucobuccal Fold(Left) today Continue IV antibiotics today. Plan to resume warfarin tomorrow and possible DC tomorrow on po antibiotics Agree with plans as detailed by Sherrell FLORES Subjective Jose Antonio is doing well this morning. His pain in his left upper oral cavity and left facial swelling is improved compared to yesterday. He denies fevers, chills, difficulty swallowing, chest pain, SOB, abdominal pain, N/V/D. He is currently NPO on IV fluids in preparation for OR this morning. Review of Systems Review of Systems: All systems reviewed & are unremarkable except as noted in HPI & below Physical Exam Physical Exam: VITALS: Reviewed and VSS. GEN: Healthy appearing, well-developed, male, NAD. PSYCH: Good Judgment. AOx3. Normal memory, mood, and affect. HEENT: Head NC/AT. Left facial swelling and erythema present. Left upper oral cavity erythema and swelling present. NECK: Supple, with no masses. CV: RRR, no m/r/g. LUNGS: CTAB, no w/r/c. ABD: Soft, NT/ND, NBS, no masses or organomegaly. SKIN: Warm, well perfused. No skin rashes or abnormal lesions. MSK: No deformities, Normal gait. EXT: No clubbing, cyanosis, or edema. NEURO: Ambulating with no limitations. Normal muscle strength and tone. No focal deficits. Results & Data Results & Data Vital Signs (Past 12 Hours) Vital Signs Temp Pulse Pulse Resp BP Pulse Ox O2 Del Method 10/02/24 11:54 36.4 C L 73 16 150/96 H 93 Room Air 10/02/24 11:20 68 12 153/91 H 95 Room Air 10/02/24 11:10 36.4 C L 63 12 177/98 H 95 Room Air 10/02/24 11:00 63 12 165/95 H 98 Room Air 10/02/24 10:50 64 12 160/91 H 94 Oxymask 10/02/24 10:40 70 16 167/106 H 95 Oxymask 10/02/24 10:30 36.3 C L 78 20 156/107 H 94 Oxymask 10/02/24 08:39 36.7 C 75 18 148/89 H 94 Room Air 10/02/24 07:10 36.3 C L 67 18 112/79 98 Room Air O2 Flow Rate 10/02/24 11:54 10/02/24 11:20 10/02/24 11:10 10/02/24 11:00 10/02/24 10:50 3 10/02/24 10:40 6 10/02/24 10:30 6 10/02/24 08:39 10/02/24 07:10 Laboratory Results Short CBC 10/02/24 Range/Units 06:25 WBC 4.59 L (4.8-10.8) K/ul Hgb 15.4 (14.0-18.0) g/dl Hct 43.2 (42.0-52.0) % Plt Count 192 (130-400) K/uL BMP 10/02/24 06:25 Sodium 138 Potassium 3.7 Chloride 108 H Carbon Dioxide 27 BUN 11 Creatinine 0.84 Glucose 93 Calcium 8.8 I have independently reviewed and interpreted patient's labs including CBC, BMP, PTT, PT/INR. Medications Administered Current Inpatient Medications Albuterol (Albuterol Hfa 8 Gm Inhaler) 2 puffs INH Q4 PRN PRN Reason: DYSPNEA OR WHEEZING Stop: 10/31/24 02:44 Aspirin (Aspirin 81 Mg Ectab) 81 mg PO QAM [facility] Stop: 10/31/24 08:59 Last Admin: 10/02/24 08:14 Dose: 81 mg Atorvastatin Calcium (Atorvastatin 40 Mg Tab) 40 mg PO QAM NERISSA Stop: 10/31/24 08:59 Last Admin: 10/02/24 08:15 Dose: 40 mg Atropine Sulfate (Atropine Sulfate 0.1 Mg/Ml 10ml Syr) 0.5 mg IV Q1M PRN PRN Reason: PACU Use-HR<40 &/or Bradycardi Stop: 10/02/24 18:36 Chlorhexidine Gluconate (Chlorhexidine Gluconate 0.12% 480 Ml) 15 ml MT Q12R PRN PRN Reason: Pain Stop: 10/31/24 12:39 Cyclobenzaprine HCl (Cyclobenzaprine Hcl 10 Mg Tab) 10 mg PO HS PRN PRN Reason: Muscle Spasm Stop: 10/31/24 02:44 Last Admin: 10/01/24 03:21 Dose: 10 mg Ephedrine Sulfate (Ephedrine Sulfate 50 Mg/Ml Amp) 5 mg IV Q5M PRN PRN Reason: PACU Use Only-SBP<90 mmHg Stop: 10/02/24 18:36 Fentanyl Citrate (Fentanyl Citrate Pf 100 Mcg/2 Ml Vial) 25 mcg IV Q5M PRN PRN Reason: PACU Use Only-Pain Stop: 10/02/24 18:36 Last Admin: 10/02/24 10:45 Dose: 25 mcg Flumazenil (Flumazenil 0.1 Mg/1 Ml 10 Ml Vial) 0.2 mg IV Q2M PRN PRN Reason: PACU Use Only-Benzo Reversal Stop: 10/02/24 18:36 Fluticasone Propionate (Fluticasone Propionate Na Spr 16 Gm Btl) 2 sprays NA DAILY PRN PRN Reason: NASAL SYMPTOMS Stop: 10/31/24 02:44 Fluticasone/Vilanterol (Fluticasone/Vilanterol 200/25mcg 14 Puffs/Inhaler) 1 puffs INH DAILY NERISSA Stop: 10/31/24 08:59 Last Admin: 10/02/24 08:14 Dose: 1 puffs Hydromorphone HCl (Hydromorphone Inj 1 Mg/Ml Syringe) 0.25 mg IV Q5M PRN PRN Reason: PACU Use Only-Pain Stop: 10/02/24 18:36 Acetaminophen (Ofirmev) 1,000 mg in 100 mls @ 400 mls/hr IV Q8H PRN PRN Reason: Pain or Fever Stop: 10/04/24 02:44 Last Infusion: 10/02/24 12:43 Dose: Infused Piperacillin Sod/Tazobactam Sod (Zosyn) 4.5 gm in 100 mls @ 25 mls/hr IV Q8H NERISSA; Protocol Stop: 10/08/24 03:59 Last Admin: 10/02/24 13:30 Dose: 25 mls/hr Doxycycline Hyclate 100 mg/ (Dextrose) 100 mls @ 50 mls/hr IV Q12H NERISSA Stop: 10/06/24 17:59 Last Infusion: 10/02/24 12:24 Dose: Infused Promethazine HCl 6.25 mg/ (Sodium Chloride) 50.25 mls @ 204 mls/hr IV ONCE PRN PRN Reason: PACU Use Only-Nausea/Vomiting Stop: 10/02/24 18:36 Labetalol HCl (Labetalol Hcl Iv 5 Mg/Ml 20ml) 5 mg IV Q5M PRN PRN Reason: PACU Use-SBP>160 or DBP>100 Stop: 10/02/24 18:36 Lacosamide (Lacosamide 50 Mg Tablet) 50 mg PO AMHS [facility] Stop: 10/31/24 08:59 Last Admin: 10/02/24 08:41 Dose: 50 mg Lamotrigine (Lamotrigine 100 Mg Tab) 300 mg PO BID [facility]; Protocol Stop: 10/31/24 08:59 Last Admin: 10/02/24 08:15 Dose: 300 mg Latanoprost (Latanoprost 0.005% Op Soln 2.5 Ml Btl) 1 drops OPB HS [facility] Stop: 10/31/24 20:59 Last Admin: 10/01/24 20:41 Dose: 1 drops Morphine Sulfate (Morphine Sulfate 2 Mg/Ml Carp) 2 mg IV Q6 PRN PRN Reason: Mod-Sev Pain (Scale 4-10) Stop: 10/15/24 11:43 Last Admin: 10/02/24 08:19 Dose: 2 mg Naloxone HCl (Naloxone Hcl 0.4 Mg/1 Ml Vial/Carp) 0.2 mg IV Q2M PRN PRN Reason: PACU Use Only-Opiate Reversal Stop: 10/02/24 18:36 Ondansetron HCl (Ondansetron Inj 2 Mg/Ml 2 Ml Vial) 4 mg IV ONCE PRN PRN Reason: PACU Use Only-Nausea/Vomiting Stop: 10/02/24 18:36 Last Admin: 10/02/24 12:39 Dose: 4 mg (2) Pneumonia Laterality: right Lung location: upper lobe of lung Pneumonia type: due to unspecified organism Qualified Code(s): J18.9 - Pneumonia, unspecified organism (4) Lupus (systemic lupus erythematosus) Systemic lupus erythematosus organ involvement: unspecified Systemic lupus erythematosus type: unspecified Qualified Code(s): M32.9 - Systemic lupus erythematosus, unspecified
[2024-10-03 03:53] VITALS: O2SAT 96
[2024-10-03 07:23] LABS: Hematocrit (blood only) 42.8 % (42.0-52.0); Hemoglobin 15.2 g/dl (14.0-18.0); Mean Corpuscular Hgb Conc 35.5 g/dL (32.0-36.0); Mean Corpuscular Volume 81.5 fL (80.0-100.0); Mean Platelet Volume 9.5 fL (9.4-12.4); Platelet Count 223 K/uL (130-400); RDW Coefficient of Variation 11.9 % (11.5-14.5); RDW Standard Deviation 35.1 fL (36.4-46.3); Red Blood Count 5.25 M/uL (4.70-6.10); White Blood Count 7.74 K/ul (4.8-10.8)
[2024-10-03 07:42] LABS: BUN Creatinine Ratio 15.4 (10-20); Calcium 9.3 mg/dl (8.6-10.3); Creatinine Clr Calc Pharmacy 152.7 ml/min; Potassium 3.6 mmol/L (3.5-5.1)
[2024-10-03 07:52] VITALS: BP 143/88; RESP 16; TEMP 97.9
[2024-10-03 07:57] LABS: INR 1.1 (0.9-1.1); Prothrombin Time 11.9 Seconds (9.0-12.0)
--- NOTE | 2024-10-03 10:33 | Discharge Summary ---
Date of Service October 03, 2024 Admission HPI Per Admitting Provider 34-year-old male with past medical history significant for reactive airway disease, interstitial lung disease, pulmonary nodules, chronic rhinitis, history of CVA, history of nonbacterial thromboembolic endocarditis, history of acute superficial gastritis, degenerative disc disease, history of epilepsy, 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 Patient says on left upper tooth he lost dental filling and has appointment with his dentist tomorrow. He went to urgent care and was prescribed Augmentin today but left side face started to swell which prompted him to come to the ER. Has pain in the left side of the face. Denies any fevers. Able to swallow okay. Denies shortness of breath. Denies chest pain. No headache. No runny nose or sore throat. No cough. Has mild abdominal discomfort in the right side. No nausea. No diarrh ea or constipation. Micturating okay. Hemodynamics are okay. Past medical history. As mentioned above Past surgical history. Bronchoscopy. Dental surgery. EGD. EGD with endoscopic ultrasound. I&D and tooth extraction. Social history. Quit smoking in 2011. Smoked 1 pack a day for 8 years. Alcohol 1-2 drinks a week. Uses medical marijuana. Family history. Father had allergies. Glaucoma. Kidney cancer. Sleep apnea. Mother has allergies. Depression. Brother has sleep apnea. Admission Exam Per Admitting Provider General- Not in distress Head- Left face swollen Eyes- PERRL. ENT- oropharynx moist Neck- supple, no JVD. Lungs- clear to auscultation no wheezing or crackles Heart- regular rate and rhythm; no murmur, no gallop. Abdomen- normal bowel sounds, soft, nontender, no distension Extremities- no pretibial edema, no erythema seen Neuro- alert, oriented PERRL, EOMI; no facial palsy; no dysarthria; moves extremities Principal Diagnosis Left facial abscess Status post incision and drainage Discharge Exam Constitutional + well hydrated; no acute distress Left facial swelling much improved Eyes PERRL, small conjunctival hemorrhage on left eye. No visual deficits reported ENMT external ear and nose normal, oropharynx normal Respiratory normal respiratory effort, lungs clear to auscultation Cardiovascular Rate/Rhythm: regular rate and regular rhythm Gastrointestinal (Abdomen) normal bowel sounds, soft, nontender, no hepatosplenomegaly Musculoskeletal no cyanosis or clubbing, extremities motor strength 5/5 Neurologic PERRL, EOMI, accommodation nl, no face palsy, no dysarthria Psychiatric A+Ox3, euthymic affect Discharge Data Allergies Allergy/AdvReac Type Severity Reaction Status Date / Time tramadol AdvReac Severe Seizure Verified 10/01/24 10:43 Consultations 09/30/24 21:36 ED Decision to Admit Stat 10/01/24 07:17 Consult Oromaxillofacial Surgery Routine Procedures Performed Operation Date: 10/02/24 08:40 Actual Procedures p Incision and Drainage of Left Intraorbital Abscess and Mucobuccal Fold(Left) - Payam Lee DMD Ordered Studies 09/30/24 18:57 CT soft tissue neck w con Stat CT NECK WITH IV CONTRAST: INDICATION: PAIN TECHNIQUE: CT examination of the neck was performed following administration of the intravenous contrast. IV CONTRAST: 100 mL of OMNIPAQUE 300 FINDINGS: There is a periodontal disease involving left lateral incisor of the maxilla with cortical dehiscence along the buccal margin of the maxilla. At this site, there is a 1.3 cm area of hypodensity with overlying phlegmon. PHARYNX: The appearances of linda-, naso-, and para-pharyngeal spaces are within normal limits. LARYNX: The laryngeal structures appear unremarkable. INFRAHYOID NECK: The prevertebral soft tissues and airways are maintained LYMPH NODES: Scattered and small lymph nodes in the neck are noted, size insignificant. Appearances of the visceral structures, including parotid, submandibular and thyroid glands appear within normal limits. SKELETAL: Unremarkable. VASCULAR: The vascular structures appear intact. OTHER: No significant abnormality identified in the partially visualized brain. Mucosal disease of the left maxillary sinus. There are patchy groundglass densities in the right upper lobe of the lung. 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 Patchy groundglass densities in the right upper lobe of the lung representing pneumonia. Hospital Course (1) Dental abscess: (2) Pneumonia: (3) Antiphospholipid antibody with hypercoagulable state: (4) Lupus (systemic lupus erythematosus): (5) Interstitial lung disease: (6) Epilepsy: (7) History of stroke: Plan 34 year old male with PMH significant for antiphospholipid syndrome on warfarin, SLE, interstitial lung disease, RAD, and epilepsy who presented to the ED yesterday for facial swelling and pain. He recently lost the filling on his left upper tooth and went to urgent care when he started experiencing pain at that tooth. He was prescribed Augmentin and had an appointment with his dentist, but started experiencing facial swelling the previous night which prompted him to come to the ED. In the ED, he underwent a soft tissue neck CT which demonstrated periodontal disease with suspected abscess formation as well as patchy groundglass densities in the right upper lung lobe. A CXR was obtained which demonstrated peribronchial thickening and a right pulmonary infiltrate. He was started on IV zosyn and doxycycline and oral surgery was consulted for further evaluation and management of the dental abscess. 1. Dental abscess Underwent I&D yesterday morning in the OR. Was managed with IV antibiotics and pain medicine while in the hospital. Vitals stable and patient ready for discharge today. Continue PO Augmentin 875-125mg bid that was prescribed by Urgent Care prior to hospitalization. Utilize PO Tylenol 650mg q6hr PRN for mild-moderate pain management. Dr. Lee also called in PO Vicodin q4hr PRN that can be used for moderate-severe pain management. 2. Pneumonia Incidental finding on soft tissue neck CT and confirmed on CXR Asymptomatic on RA. Antibiotic abscess will cover this as wel 3. Antiphospholipid syndrome Warfarin was held during hospitalization due to I&D procedure. Resume warfarin per home dosing prescribed by [facility]. 4. SLE Resume hydroxychloroquine per home dosing. 5. Interstitial lung disease Continue inhalers per home dosing. 6. Epilepsy Continue lacosamide and lamotrigine per home dosing. 7. History of CVA Continue ASA and statin per home dosing. Total Time Total Time Spent Total Time Spent (In Minutes): 35 Total Time Includes: Examination of the Patient, Discharge Planning and Medication Reconciliation Discharge Plan Discharge Items Patient Disposition: Home - Self-Care Reason For Visit: DENTAL INFECTION,FACIAL CELLULITIS Discharge Diagnosis: Left facial abscess Status post incision and drainage Condition on Discharge: Good Activity: Resume your previous activity Lifting: Gradually increase as tolerated Bathing: No limitations Exercise/Sports: Gradually increase as tolerated Driving/Machine Use: Resume 1 day after discharge Weightbearing: Full weightbearing Non-emergency contact: Surgeon Call non-emergency contact if: you have any medication questions, your pain is worsening, your pain is unusual for you, your temperature is above 101.5, your wound has increased redness, your wound has increased drainage and your wound pain has increased Follow-up/Referrals: Mukesh Boyd MD [Primary Care Provider] - (Date & Time 10/08/2024 10:40 AM Provider: Mukesh Boyd MD [facility] ) Payam Lee DMD [Physician] - Diet: Regular Diet Texture: Easy to Chew Ronny Attending Provider Instructions: You were admitted to the hospital for a dental abscess. You underwent an I&D yesterday morning and are stable for discharge home today. MEDICATION CHANGES: Continue taking the PO Augmentin 875-125mg bid to complete course that you were prescribed from Urgent Care before coming to the ED. You may take PO Tylenol 650mg q6hr as needed for mild-moderate pain. Dr. Lee also sent a prescription for PO Vicodin q4hr as needed for moderate to severe pain. Continue all of your home medications. You may restart your Coumadin today. SUMMARY OF TEST RESULTS: None PENDING TEST RESULTS: None RECOMMENDATIONS FOR FOLLOW-UP: Follow up with your PCP regarding hospitalization. Please call Dr. Lee's office to schedule a follow up visit in 10-14 days. Follow up with [facility] regarding therapeutic Coumadin dosing. OTHER INSTRUCTIONS: Please see below instructions from Dr. Lee. Seek medical attention if you have: * temperature above 101 * chest pain or trouble breathing * abdominal pain, nausea, vomiting * diarrhea, dark stools or bloody stools * any unanswered questions or concerns Call 911 if symptoms are severe. It has been a pleasure taking care of you. Please take care of yourself. If you have any questions regarding your recent hospitalization please contact [facility] and request Michi Chicas @ [phone]. [facility] Office Manager Provider Instructions: ADDITIONAL ACTIVITY RECOMMENDATIONS: * [place] teeth after every meal. It is very important to keep your mouth clean to prevent infection. * Starting tonight rinse with the Peridex as directed then 2 x a day * it is very important to keep well hydrated, this prevents fever SPECIAL CARE INSTRUCTIONS: *It is not uncommon that between day 2-4 that your swelling will be at its worst this is very normal, do not be alarmed. * Keep ice on the side of your face for the next 24 to 36 hours. This will help keep the swelling down. * You may experience slight nausea. To prevent this, never take your medication on an empty stomach. If nauseated, take small sips of danielle melisa until you feel better; then you may start on applesauce and toast. * A certain amount of bleeding is to be expected. It is often possible to control mild oozing by placing folded gauze over the area and biting down for 30 minutes. If you are unable to control excessive bleeding, call Dr Lee at [phone] * You may experience some discomfort for a few days. If pain or swelling increases, Call Dr Lee * Return to the office for a follow up check up on: Call office to set up a follow up with Dr Lee for 10-14 days * office address--[address] [place] [address] . phone # [phone] Pending Studies at Discharge: No Stand-Alone Forms: My [facility] [employer], Smoking Cessation Medications and DC Order Prescriptions: Continued hydrocodone-acetaminophen 5-325 mg tablet 1 tab PO Q4H PRN (Reason: pain) Qty: 10 0RF atorvastatin [Lipitor] 40 mg tablet 40 mg PO QAM hydroxychloroquine [Plaquenil] 200 mg tablet 400 mg PO HS lamotrigine [Lamictal] 100 mg tablet 300 mg PO BID warfarin 7.5 mg tablet See Rx Instructions .ROUTE .COMPLEX Rx Instructions: TAKE 1-1.5 TABLET ORALLY IN THE MORNING....OR DIRECTED BY [facility] lacosamide [Vimpat] 50 mg tablet 50 mg PO [facility] amoxicillin-pot clavulanate 875-125 mg tablet 1 tab PO [facility] Rx Instructions: START 09/30/24 END DATE IS 10/10/24 cyclobenzaprine 10 mg tablet 10 mg PO HS PRN (Reason: Muscle Spasm) latanoprost 0.005 % drops 1 drp OPB HS albuterol sulfate 90 mcg/actuation Hfa Aerosol Inhaler 2 puff INHALATION Q4 PRN (Reason: DYSPNEA OR WHEEZING) Dulera 100-5 mcg/actuation Hfa Aerosol Inhaler 2 puff INHALATION [facility] acetaminophen 325 mg Tablet 650 mg PO Q6 PRN (Reason: Pain) aspirin 81 mg Tablet,Delayed Release (Dr/Ec) 81 mg PO QAM fluticasone propionate 50 mcg/actuation [place],Suspension 2 spray INTRANASAL DAILY PRN (Reason: NASAL SYMPTOMS) Rx Instructions: administer into each nostril Discharge Orders: Discharge Order (Routine); Ordered 10/03/24 Ordered By: Vera Bliss Admission Data Admit Date/Time: 09/30/24 23:21 Attending Provider: Vera Bliss I. Admit Provider: Hipolito Gutierrez Primary Care Provider: Mukesh Boyd Other Providers: Hipolito Gutierrez; Payam Lee Other Interventions: Discharge Summary Assessment (RN) Last Done: 10/03/24 10:49
[2024-10-03 10:52] VITALS: PULSE 73
--- NOTE | 2024-10-10 12:28 | Operative Report ---
PG Post Operative Report Pre & Post Diagnosis Operation Date: 10/02/24 08:40 Pre-Op Diagnosis: Dental Infection, Facial Cellulitis Post-Op Diagnosis: Dental Infection, Facial Cellulitis I identified the patient and participated in the time-out.: Yes Procedure Operation Date: 10/02/24 08:40 Actual Procedures p Incision and Drainage of Left Intraorbital Abscess and Mucobuccal Fold(Left) - Payam Lee DMD Surgeon Payam Lee DMD [place] none Estimated Blood Loss 5 Findings Consistent with Post-Op Diagnosis Specimens I&D Drains none Anesthesia Type General Complications none Disposition Accompanied Patient To Recovery: Yes Indications acute infection not responding to oral antibiotics Description of Procedure p Incision and Drainage left maxillary vestibule and infraorbital space Abscess; - Payam Lee DMD ICD 10 K12.2 , L03.211 CPT 28118 I & D of abscess of the inferior orbital and vestibular space of left maxilla Once cleared for surgery general anesthesia was achieved, the eyes were protected by the anesthesia dept criteria. A time out was take for patient ID, antibiotics, equipment and position verification once all agreed the procedure began. Local anesthesia using Marcaine with a vasoconstrictor ( 1.8 ml per site) given into left posterior maxilla To treat # 10 I&D oral antibiotics. need to see dentist for root canal once the acute phase has passed Based on the CT there looks to be an abscessed # 10 which is the etiology of the current infection- Imaging: CT scan reviewed # 10 left lateral incisor of the maxilla with cortical dehiscence along the buccal margin of the maxilla. At this site, there is a 1.3 cm area of hypodensity with overlying phlegmon- swelling involving upper lip, nasolabial fold and infraorbital area to lower lid left eye A throat pack was placed after the oral cavity was irrigated with saline. Once a surgical level of anesthesia was obtained and the local anesthesia was given time for the blocks the surgery was started. I turned my attention to the infection which was located in the in the left cheek,left vestibule, left tuberosity area, Infraorbital fossa area Incision and Drainage Using a 15 blade an incision was made in the vestibular area upper left side left of midline Once the incision was made a lot of pus extruded from the site. This drainage was cultured for anaerobic and aerobic bacteria. A curved hemostat was carefully placed superior into the infected space to drain the infraorbital space. To gain access to the pocket of pus in the cheek another incision was made in the vestibule. This allowed further drainage to escape. I palpated the face and cheek area and no further drainage was expressed. The area was irrigated with at least 100 ml of NS solution. No drain was need in infraorbital space due to the dependent drainage. I few 3-0 chromics were used to loosely approximate the site and still allow drainage.. I inspected the sites to insure all bleeding was controlled. I removed the throat pack and suctioned the throat. A gauze pressure dressings was placed. All instrument and sponge count was correct. The patient was allowed to awake from the anesthesia. Once full awake the anesthesia tube was removed and the patient was taken to the recovery room with all vital sign stable. The patient tolerated the surgery very well. I will follow the patient in my office, Rx and instructions will be given upon discharge. Will restart the anticoagulant in 24 hours I attest to the content of the Intraoperative Record and any orders documented therein. Any exceptions are noted below.
== END 2024-10-03 12:06 | disposition home or self-care (01) | DRG 137 ==
LOC: ED 18:22 → 3N 23:21